=== PATIENT | male | born 1935 | race Caucasian/White ===

== ENCOUNTER 2016-08-24 11:54 | Day surgery (SDC) | payer MEDICARE ==
[~2016-08-24] VITALS: Ht 175.3 cm; Wt 87.1 kg
[2016-08-24] VITALS (7 sets, daily range): BP systolic 122–138; BP diastolic 74–92
[~2016-08-24 11:54] MED LIST: ALBU0.632 IH; AMLO10TA82 PO; AMLO5TAB2 PO; AMLO5TAB4 PO; ASP81TEC PO; BENA10TA2 PO; BNZ10T PO; BNZ20T PO; CALC-250 PO; CEFU500T PO; CHOL200035 PO; CIPR-225 PO; CLOP75TA PO; CLOP75TA28 PO; CPR250T PO; DOXY100C2 PO; HYDR-3583 PO; HYDR-508 PO; MAGN300C PO; METO-333 PO; METO25TA2 PO; METO50TA2 PO; NAPR1TAB25 PO; NAPR220C11 PO; NAPR250T34 PO; NEBU1EAC2 MC; NEO/3.5O OS; NFNEB10T PO; OMEG1CAP51 PO; OSTEO BI-FLEX1 EACH PO; PANT20TA2 PO; RANO500T3 PO; SIMV5TAB6 PO; TMSL.4C PO; TRAM50TA2 PO; TURM500C PO; TURM500C7 PO; [UNRECOGNIZED DRUG - CODE] PO; [UNRECOGNIZED DRUG - OTHER]
--- OUTSIDE RECORDS SUMMARY | 2016-08-24 11:58 | XMS REPORT | Continuity of Care Document ---
Author Author [facility] Organization [facility] Address Unknown Phone Unavailable Care Team Providers Care Spring Clipper Name Role Phone BEVERLEY YOUNGER MD PCP Insurance Providers Payer Name Policy Number Subscriber Name Relationship Wps Medicare [id number] Angela Main 18 Self / Same As Patient Blue Cross [facility] Supp [id number] Angela Main 18 Self / Same As Patient Advance Directives Directive Response Recorded Date/Time Advance Directives Yes 02/15/16 9:01am Health Care Power of Ship Engineer No 02/15/16 9:01am Organ Donor No 02/15/16 9:01am Resuscitation Status Full Code 02/15/16 9:01am Problems Active Problems Medical Problem Onset Date Status Chest pain Unknown Acute Gross hematuria Unknown Acute History of prostate cancer Unknown Acute UTI (urinary tract infection) Unknown Acute Unstable angina Unknown Acute Urinary retention Unknown Acute Medications Current Home Medications Medication Dose Units Route Directions Days/Qty Instructions Start Date Aspirin 81 Mg 81 Mg Oral Daily 02/01/12 Simvastatin 5 Mg 5 Mg Oral Bedtime 11/08/14 Amlodipine Besylate 5 Mg 5 Mg Oral Daily 10/04/15 Metoprolol Tartrate 50 Mg 50 Mg Oral Twice A Day 02/15/16 Ranolazine 500 Mg 500 Mg Oral Every 12 Hours 02/15/16 Naproxen Na-Diphenhydramin Hcl 1 Each 0.5 Tab Oral Bedtime 02/15/16 Cefuroxime Axetil 500 Mg 500 Mg Oral Twice A Day 10 02/15/16 Past Home Medications Medication Directions Ordered Status [Denazril 10MG] , 09/04/08 Discontinued Doxycycline Hyclate (Vibramycin) 100 Mg Capsule, 1 Each Oral Twice A Day 01/17 Discontinued Albuterol Sulfate (Proventil Nebs) 0.63 Mg/3 Ml Vial.neb, 1 Each Inhalation Q 4 - 6 Hrs Prn 12/15/09 Discontinued Naproxen 250 Mg Tablet, 1 Each Oral Three Times A Day 12/15/09 Discontinued Nebivolol Hcl 10 Mg Tablet, 1 Each Oral Daily 02/01/12 Discontinued Benazepril Hcl 20 Mg Tablet, 10 Mg Oral Daily 02/01/12 Discontinued Amlodipine Besylate (Norvasc 10 Mg) 10 Mg Tablet, 5 Mg Oral Daily 02/01/12 Discontinued Calcium Carbonate/Vitamin D3 1 Each Tablet, 1 Each Oral Daily 02/01/12 Discontinued Turmeric Root Extract 500 Mg Capsule, 500 Mg Oral Daily 02/01/12 Discontinued Gluc/[facility]#1/C/Juan M/Ryan/Bor 1 Each Tablet, 1 Tab Oral Bedtime 02/01/12 Discontinued Ciprofloxacin Hcl 250 Mg Tablet, 1 Tab Oral Twice A Day 02/05/12 Discontinued Acetaminophen/Hydrocodone Bitart 1 Tab Tab, 1 Ea Oral Q4hr Prn 02/05/12 Discontinued Tamsulosin Hcl 0.4 Mg Cap, 0.4 Mg Oral Daily 02/05/12 Discontinued Metoprolol Tartrate (Lopressor) 25 Mg Tablet, 25 Mg Oral Twice A Day Discontinued Naproxen Sodium 220 Mg Capsule, 220 Mg Oral Daily 12/30/12 Discontinued Cholecalciferol (Vitamin D3) 2,000 Unit Capsule, 2000 Unit Oral Daily Discontinued Magnesium Oxide/Mag Aa Chelate 300 Mg Capsule, 300 Mg Oral Daily 07/20/14 Discontinued Docosahexanoic Acid/Epa 1 Cap Capsule, 1 Cap Oral Daily 07/20/14 Discontinued Hydrocodone/Acetaminophen 1 Each Tablet, 1 Each Oral Every 4HRS for Pain Discontinued Benazepril Hcl 10 Mg Tab, 10 Mg Oral Daily 11/08/14 Discontinued Amlodipine Besylate 5 Mg Tab, 5 Mg Oral Daily 11/08/14 Discontinued Clopidogrel Bisulfate 75 Mg Tablet, 1 Each Oral Daily 11/08/14 Discontinued Pantoprazole Sodium 20 Mg Tablet.dr, 20 Mg Oral Daily 11/08/14 Discontinued Ciprofloxacin Hcl 500 Mg Tablet, 500 Mg Oral Twice A Day 03/29/15 Discontinued Turmeric Root Extract 500 Mg Capsule, 500 Mg Oral Daily 04/30/15 Discontinued Henry Seal 500 Mg Capsule, 500 Mg Oral Daily 04/30/15 Discontinued Metoprolol Tartrate 50 Mg Tablet, 50 Mg Oral Twice A Day 04/30/15 Discontinued Clopidogrel Bisulfate 75 Mg Tablet, 75 Mg Oral Daily 10/04/15 Discontinued Benazepril Hcl 10 Mg Tablet, 10 Mg Oral Daily 10/04/15 Discontinued Metoprolol Tartrate 25 Mg Tablet, 25 Mg Oral Twice A Day 10/04/15 Discontinued Ronald/Polymyx B Sulf/Dexameth 3.5 Gm Oint...g., Left Eye Bedtime 10/04/15 Discontinued Ranolazine 500 Mg Tab.er.12h, 500 Mg Oral Twice A Day 10/05/15 Discontinued Tramadol Hcl 50 Mg Tablet, 50 Mg Oral Every 12 Hours as needed for Pain 10/12 Discontinued Metoprolol Tartrate 50 Mg Tablet, 50 Mg Oral Twice A Day 02/15/16 Discontinued Social History Social History Problem Response Recorded Date/Time Alcohol Use Denies Use 10/13/2015 12:20pm Recreational Drug Use No 10/13/2015 12:20pm Recent Foreign Travel No 12/29/2012 6:05pm Recent Infectious Disease Exposure No 12/29/2012 6:05pm Hospitalization with Isolation Denies 12/30/2012 7:41pm Sexually Transmitted Disease No 10/13/2015 12:20pm HIV/AIDS No 10/13/2015 12:20pm Smoking Status Former Smoker 02/15/2016 9:01am Do you dip or chew tobacco? No 10/04/2015 3:15pm Sexually Transmitted Disease No 10/13/2015 12:20pm Hospitalization with Isolation Denies 12/30/2012 7:41pm Query Response Start Date Stop Date Smoking Status Former Smoker 04/30/1996 Hospital Discharge Instructions No hospital discharge instructions. Plan of Care Discharge Date 02/15/16 2:00pm Instructions/Education Provided Pacemaker (DC) Prescriptions See Medication Section Functional Status Query Response Date Recorded Patient Orientation Person Place Time Situation February 15, 2016 6:39pm Allergies, Adverse Reactions, Alerts No known allergies. Immunizations No immunization records. Vital Signs Acute Vital Signs Vital Response Date/Time Temperature (Fahrenheit) 97.4 degrees F (97.6 - 99.5) 02/15/2016 2:00pm Temperature (Calculated Celsius) 36.05070 degrees C (36.4 - 37.5) 02/15/2016 1:45pm Temperature Source Temporal 02/15/2016 2:00pm Pulse Rate (adult) 60 bpm (60 - 90) 02/15/2016 2:00pm Respiratory Rate 18 bpm (12 - 24) 02/15/2016 2:00pm O2 Sat by Pulse Oximetry 98 % (88 - 100) 02/15/2016 2:00pm Blood Pressure 130/78 mm Hg 02/15/2016 2:00pm Blood Pressure Mean 95 mm Hg 02/15/2016 1:45pm Pain Numeric Pain Scale 0-No Pain 02/15/2016 2:00pm Height (Feet) 5 feet 02/15/2016 9:00am Height (Inches) 10.00 inches 02/15/2016 9:00am Height (Calculated Centimeters) 177.789253 cm 02/15/2016 9:00am Weight (Pounds) 196 pounds 02/15/2016 9:00am Weight (Ounces) 0.0 oz 02/15/2016 9:00am Weight (Calculated Grams) 95085.11 gm 02/15/2016 9:00am Weight (Calculated Kilograms) 88.287633 kilograms 02/15/2016 9:00am Calculated BMI 28.1 02/15/2016 9:00am Results Laboratory Results Test Name Result Units Flags Reference Collection Date/Time Result Date/ Time Comments White Blood Count 6.5 10^3/uL 4.3-11.0 02/15/2016 8:50am 02/15/2016 9: 13am Red Blood Count 4.52 10^6/uL 4.35-5.85 02/15/2016 8:50am 02/15/2016 9: 13am Hemoglobin 13.5 G/DL 13.3-17.7 02/15/2016 8:50am 02/15/2016 9:13am Hematocrit 40 % 40-54 02/15/2016 8:50am 02/15/2016 9:13am Mean Corpuscular Volume 89 FL 80-99 02/15/2016 8:50am 02/15/2016 9: 13am Mean Corpuscular Hemoglobin 30 PG 25-34 02/15/2016 8:50am 02/15/2016 9: 13am Mean Corpuscular Hemoglobin Concent 34 G/DL 32-36 02/15/2016 8:50am 12/2015 9:13am Red Cell Distribution Width 14.1 % 10.0-14.5 02/15/2016 8:50am 2015 9:13am Platelet Count 201 10^3/uL 130-400 02/15/2016 8:50am 02/15/2016 9:13am Mean Platelet Volume 9.7 FL 7.4-10.4 02/15/2016 8:50am 02/15/2016 9: 13am Prothrombin Time 13.9 SEC 12.2-14.7 02/15/2016 8:50am 02/15/2016 9: 42am INR Comment 1.1 0.8-1.4 02/15/2016 8:50am 02/15/2016 9:42am INTERPRETIVE DATA SUGGESTED THERAPEUTIC RANGE FOR INR'S: VENOUS THROMBOSIS, PULMONARY EMBOLISM, OR PREVENTION OF SYSTEMIC EMBOLISM (EG. IN ATRIAL FIBRILLATION): 2.0 - 3.0 MECHANICAL PROSTHETIC HEART VALVES: 2.5 - 3.5* *NOTE: INR'S UP TO 4.5 MAY BE NECESSARY IN SELECTED GROUPS OF HIGH RISK PATIENTS. SIXTH CITIZEN OF [place] COLLEGE OF CHEST PHYSICIANS CONSENSUS CONFERENCE ON ANTITHROMBOTIC THERAPY (2000). Activated Partial Thromboplast Time 31 SEC 24-35 02/15/2016 8:50am 12/2015 9:42am Urine Color YELLOW 02/15/2016 8:50am 02/15/2016 9:43am Urine Clarity CLEAR 02/15/2016 8:50am 02/15/2016 9:43am Urine pH 6 5-9 02/15/2016 8:50am 02/15/2016 9:43am Urine Specific [place] 1.020 1.016-1.022 02/15/2016 8:50am 2015 9:43am Urine Protein 1+ * NEGATIVE 02/15/2016 8:50am 02/15/2016 9:43am Urine Glucose (UA) NEGATIVE NEGATIVE 02/15/2016 8:50am 02/15/2016 9: 43am Urine RBC (Auto) NEGATIVE NEGATIVE 02/15/2016 8:50am 02/15/2016 9: 43am Urine Ketones NEGATIVE NEGATIVE 02/15/2016 8:50am 02/15/2016 9:43am Urine Nitrite NEGATIVE NEGATIVE 02/15/2016 8:50am 02/15/2016 9:43am Urine Bilirubin NEGATIVE NEGATIVE 02/15/2016 8:50am 02/15/2016 9: 43am Urine Urobilinogen NORMAL MG/DL NORMAL 02/15/2016 8:50am 02/15/2016 9: 43am Urine Leukocyte Esterase 1+ * NEGATIVE 02/15/2016 8:50am 02/15/2016 9: 43am Urine RBC NONE /HPF 02/15/2016 8:50am 02/15/2016 9:43am Urine WBC 5-10 /HPF * 02/15/2016 8:50am 02/15/2016 9:43am Urine Bacteria TRACE /HPF 02/15/2016 8:50am 02/15/2016 9:43am Urine Squamous Epithelial Cells 0-2 /HPF 02/15/2016 8:50am 2015 9:43am Urine Crystals NONE /LPF 02/15/2016 8:50am 02/15/2016 9:43am Urine Casts NONE /LPF 02/15/2016 8:50am 02/15/2016 9:43am Urine Mucus SMALL /LPF * 02/15/2016 8:50am 02/15/2016 9:43am Urine Culture Indicated NO 02/15/2016 8:50am 02/15/2016 9:43am Sodium Level 138 MMOL/L 135-145 02/15/2016 8:50am 02/15/2016 9:31am Potassium Level 4.2 MMOL/L 3.6-5.0 02/15/2016 8:50am 02/15/2016 9:31am Chloride Level 106 MMOL/L 98-107 02/15/2016 8:50am 02/15/2016 9:31am Carbon Dioxide Level 23 MMOL/L 21-32 02/15/2016 8:50am 02/15/2016 9: 31am Anion Gap 9 MMOL/L 5-14 02/15/2016 8:50am 02/15/2016 9:31am Blood Urea Nitrogen 22 MG/DL H 7-18 02/15/2016 8:50am 02/15/2016 9:31am Creatinine 1.27 MG/DL 0.60-1.30 02/15/2016 8:50am 02/15/2016 9:31am BUN/Creatinine Ratio 17 02/15/2016 8:50am 02/15/2016 9:31am Estimat Glomerular Filtration Rate 55 02/15/2016 8:50am 02/15/2016 9:31am GFR INTERPRETIVE DATA UNITS FOR ESTIMATED GFR (eGFR): mL/min/1.73 M2 REFERENCE RANGE FOR ESTIMATED GFR (eGFR) eGFR NORMAL eGFR >60 MODERATELY DECREASED eGFR 30-59 SEVERLY DECREASED eGFR 15-29 KIDNEY FAILURE <15 (OR DIALYSIS) Glucose Level 98 MG/DL 70-105 02/15/2016 8:50am 02/15/2016 9:31am Calcium Level 8.7 MG/DL 8.5-10.1 02/15/2016 8:50am 02/15/2016 9:31am Total Bilirubin 0.8 MG/DL 0.1-1.0 02/15/2016 8:50am 02/15/2016 9:31am Alkaline Phosphatase 77 U/L 40-136 02/15/2016 8:50am 02/15/2016 9:31am Aspartate Amino Transf (AST/SGOT) 16 U/L 5-34 02/15/2016 8:50am 2015 9:31am Alanine Aminotransferase (ALT/SGPT) 15 U/L 0-55 02/15/2016 8:50am 02/14 9:31am Total Protein 7.3 G/DL 6.4-8.2 02/15/2016 8:50am 02/15/2016 9:31am Albumin 3.9 G/DL 3.2-4.5 02/15/2016 8:50am 02/15/2016 9:31am Triglycerides Level 188 MG/DL H <150 02/15/2016 8:50am 02/15/2016 9:31am Cholesterol Level 162 MG/DL < 200 02/15/2016 8:50am 02/15/2016 9:31am HDL Cholesterol 41 MG/DL 40-60 02/15/2016 8:50am 02/15/2016 9:31am LDL Cholesterol Direct 98 MG/DL 1-129 02/15/2016 8:50am 02/15/2016 9: 31am VLDL Cholesterol 38 MG/DL 5-40 02/15/2016 8:50am 02/15/2016 9:31am Procedures Procedure Status Date Provider(s) Tracing only of electrocardiogram Completed 02/15/16 NACHO FERRER MD Encounters Encounter Location Arrival/Admit Date Discharge/Depart Date Attending Provider Departed [facility] 02/15/16 8:13am 2:00pm NACHO FERRER MD
--- OUTSIDE RECORDS SUMMARY | 2016-08-24 11:58 | XMS REPORT | Continuity of Care Document ---
Author Author [facility] Organization [facility] Address Unknown Phone Unavailable Care Team Providers Care Music Writer Name Role Phone BEVERLEY YOUNGER MD PCP Insurance Providers Payer Name Policy Number Subscriber Name Relationship Wps Medicare [id number] Angela Main 18 Self / Same As Patient Blue Cross [facility] Supp [id number] Angela aMin 18 Self / Same As Patient Advance Directives Directive Response Recorded Date/Time Advance Directives Yes 02/15/16 9:01am Health Care Power of Application Internship No 02/15/16 9:01am Organ Donor No 02/15/16 [...] - 99.5) 02/15/2016 2:00pm Temperature (Calculated Celsius) 36.10590 degrees C (36.4 - 37.5) 02/15/2016 1:45pm [...] 10.00 inches 02/15/2016 9:00am Height (Calculated Centimeters) 177.963955 cm 02/15/2016 9:00am Weight (Pounds) 196 pounds 02/15/2016 9:00am Weight (Ounces) 0.0 oz 02/15/2016 9:00am Weight (Calculated Grams) 73645.11 gm 02/15/2016 9:00am Weight (Calculated Kilograms) 88.524424 kilograms 02/15/2016 9:00am Calculated BMI 28.1 02/15/2016 [...] SELECTED GROUPS OF HIGH RISK PATIENTS. SIXTH [place] COLLEGE OF CHEST PHYSICIANS CONSENSUS CONFERENCE ON ANTITHROMBOTIC THERAPY (2000). Activated Partial Thromboplast Time 31 SEC 24-35 02/15/2016 8:50am 12/2015 9:42am Urine Color YELLOW 02/15/2016 8:50am 02/15/2016 9:43am Urine Clarity CLEAR 02/15/2016 8:50am 02/15/2016 9:43am Urine pH 6 5-9 02/15/2016 8:50am 02/15/2016 9:43am Urine Specific [place] 1.020 1.016-1.022 02/15/2016 8:50am 2015 9:43am Urine [...] Attending Provider Departed [facility] 02/15/16 8:13am 2:00pm NACHO FERRER MD
[2016-08-24] MEDS ORDERED: NS IV 1000 ML 1,000 ML ONE (12:11)
[2016-08-24] MEDS ORDERED: LIDOCAINE 1% INJ 20 ML (XYLOCAINE) VIAL ONE (12:11)
[2016-08-24] MEDS ORDERED: HEParin (CATH LAB) 2,000 ML IV ONE (12:11)
[2016-08-24 12:45] LABS: MEAN PLATELET VOLUME 9.5 FL (7.4-10.4); RED BLOOD COUNT 4.76 10^6/uL (4.35-5.85); RED CELL DISTRIBUTION WIDTH 13.9 % (10.0-14.5); WHITE BLOOD COUNT 6.3 10^3/uL (4.3-11.0)
[2016-08-24 12:47] LABS: BILIRUBIN,URINE NEGATIVE (NEGATIVE); KETONES,URINE NEGATIVE (NEGATIVE); LEUKOCYTE ESTERASE ,URINE NEGATIVE (NEGATIVE); NITRITE,URINE NEGATIVE (NEGATIVE); PH,URINE 5 (5-9); PROTEIN,URINE NEGATIVE (NEGATIVE); UROBILINOGEN,URINE NORMAL (NORMAL)
--- NOTE | 2016-08-24 12:48 | Diagnostic Imaging Report ---
Portable upright radiograph of the chest. INDICATION: Chest pain. FINDINGS: The lungs are hyperinflated with mild interstitial scarring. There is borderline cardiomegaly. No focal consolidation developed from prior exam of 02/15/16. Pacemaker, sternotomy wires and post CABG changes are again noted. No effusion or pneumothorax. IMPRESSION: Hyperinflated lungs. Borderline cardiac size. Dictated by: Dictated on workstation # [id number]
[2016-08-24 12:54] LABS: INR 1.1 (0.8-1.4); PROTHROMBIN TIME PATIENT 13.4 SEC (12.2-14.7)
[2016-08-24 12:56] LABS: SQUAMOUS EPITHELIAL CELL,UR 0-2 /HPF; WBC,URINE 0-2 /HPF
[2016-08-24 13:06] LABS: ALBUMIN 4.1 G/DL (3.2-4.5); BILIRUBIN,TOTAL 1.4 MG/DL (0.1-1.0); CREATININE SERUM 1.2 MG/DL (0.60-1.30); TOTAL PROTEIN 6.9 G/DL (6.4-8.2)
[2016-08-24] MEDS ORDERED: NAPR220T66 PO (13:12)
[2016-08-24] MEDS ORDERED: UBID200C17 PO (13:12)
[2016-08-24] MEDS ORDERED: NS IV 1000 ML 1,000 ML IV SCH ×2 (13:30→14:26)
[2016-08-24] MEDS ORDERED: MIDAZOLAM 5 MG/5 ML (VERSED) VIAL ONE (13:32)
[2016-08-24] MEDS ORDERED: fentaNYL INJECTION 100 MCG/2 ML AMP ONE (13:32)
--- NOTE | 2016-08-24 13:42 | Cardiac Procedure Note-CS/ASA ---
Pre-Procedure Note Pre-Op Procedure Note H&P Reviewed The H&P was reviewed, patient examined and no changes noted. Date H&P Reviewed: Aug 24, 2016 Time H&P Reviewed: 13:42 Conscious Sedation Pre-Proced Time Reviewed: 13:42 ASA Class: 3 Airway Mallampati Classification: ([place] appropriate class) I. II. III, IV Lungs Heart ASA score ASA 1: a normal healthy patient ASA 2: a patient with a mild systemic disease (mid diabetes, controlled hypertension, obesity x ASA 3: a patient with a severe systemic disease that limits activity (angina , COPD, prior Myocardial infarction) ASA 4: a patient with an incapacitating disease that is a constant threat to life (CHF, renal failure) ASA 5: a moribund patient not expected to survive 24 hrs. (ruptured aneurysm) ASA 6: a declared brain patient whose organs are being harvested. For emergent operations, add the letter E after the classification Grade 3 Sedation Plan: Analgesia, Amnesia, Plan communicated to team members, Discussed options with patient/fam, Discussed risks with patient/fam Note The patient is an appropriate candidate to undergo the planned procedure, sedation, and anesthesia. The patient immediately re-assessed prior to indication. NACHO FERRER MD Aug 24, 2016 13:42
[2016-08-24] MEDS ORDERED: RANO500T3 PO (14:28)
[2016-08-24] MEDS ORDERED: ROSU10TA PO (14:28)
[2016-08-24] MEDS ORDERED: PATIENT MAY USE OWN MEDS, ALL PO SCH (14:30)
--- NOTE | 2016-08-24 14:30 | Discharge Inst-Post CATH ---
Discharge Inst-CATH Post Cardiac Cath D/C Inst Follow Up/Plan Appointment with Dr Hampton's office in 2-4 weeks CARDIAC CATH DISCHARGE INSTRUCTIONS *Hold Metformin for 48 hours post heart cath. ACTIVITY * Go Home directly and rest. * Limit activity of the leg (or wrist if it was used) for 7 days including aerobics, swimming, jogging, bicycling, etc. * Restrict stair-climbing for 7 days if possible, if not, climb up with your non -cath leg, then bring together on the same step. * Avoid lifting, pushing, pulling or excessive movement of the affected extremity for 7 days. * Customary sexual activity may be resumed after 2 days-use caution not to use a position that strains or causes pain to the affected extremity. * No driving for 24 hours. * NO SMOKING. * Avoid straining for bowel movements for 7 days. * Gentle walking on level ground is allowed. * Returning to work will depend on the type of procedure and the results. Your doctor will discuss this with you. CALL YOUR DOCTOR FOR ANY OF THE FOLLOWING: *If bleeding from the puncture site occurs- Apply gentle pressure to site with clean cloth and call your doctor or EMS. * If a knot or lump forms under the skin, increases in size, or causes pain. * If bruising appears to be worsening or moving further down your leg instead of disappearing. * Temperature above 101 F. CARE OF YOUR GROIN INCISION; * Bruising or purple discoloration of the skin near the puncture site is common. * You may shower only, no bathtub bathing for 5 days. Be careful to avoid slipping as your leg may feel stiff. * If a closure device was used on your femoral artery, please see the attached guide regarding care of the device and your leg. * REMOVE the dressing from your groin the next day after your procedure in the shower. CARE OF YOUR WRIST INCISION; * Bruising or purple discoloration of the skin near the puncture site is common. * You may shower. * DO NOT submerge wrist. * Remove dressing in 24 hours. NACHO HAMPTON MD Aug 24, 2016 14:30
--- NOTE | 2016-08-25 23:20 | DISCHARGE SUMMARY ---
REFERRING PHYSICIAN: Dr. Dumont. BRIEF HISTORY: Mr. Haile is a 81-year-old gentleman with history of coronary artery disease, CABG, 2 stents in the past. He has been having increasing episodes of chest pain. He was scheduled for left heart catheterization, possible PTCA. PROCEDURE NOTE: After explaining the procedure to the patient, all pros and cons were explained. All questions were answered. The patient signed consent, then he was placed on the cardiac catheterization laboratory. The right groin was prepped in a sterile fashion. Local anesthesia applied to right groin. 6-[place] sheath was placed in the right femoral artery. Combination of right and left Sandra catheters were used access the right and left coronary system. Sandra right catheter was used to access the vein graft and internal mammary artery, then a pigtail catheter was advanced to the left ventricular cavity. Pressure was measured. Pullback LV to aorta was done. Left ventriculogram was done. At the end of the procedure, sheath was removed. Mynx device deployed. Hemostasis achieved. No complication noted. FINDINGS: HEMODYNAMICS: LV pressure 114/8, end-diastolic pressure of 8, aortic pressure 118/57, mean of 82. ANATOMY: 1. Left main coronary artery has moderate disease. 2. Left anterior descending artery is occluded. The LIM to the LAD is patent with good flow distally. 3. Left circumflex artery is occluded. A jump graft, vein graft to the first and second obtuse marginal branch is patent with good flow distally. 4. Right coronary artery has 2 stents. The proximal stent has 50% stenosis. Distal has mild disease, small vessel disease distally. 5. Vein graft angiogram: The vein graft, jump graft to the first and second obtuse marginal branch has 50 to 60% stenosis at the midportion with small vessel disease in the distal circumflex system. 6. Doppler vein graft is the vein graft to the right coronary artery that is occluded. 7. LIM to the LAD is patent with good flow distally. DISCUSSION AND RECOMMENDATION: Mr. Haile has borderline lesion in the stent in the right coronary artery and in the vein graft to the first and second obtuse marginal branch. He has intolerance to oral anticoagulation. I recommend conservative management unless he becomes significantly symptomatic. FINAL DIAGNOSES: 1. Chest pain resembling angina. 2. Coronary artery disease. 3. Hypertension. 4. Hyperlipidemia. Job ID: [id number] Dictated Date: 08/24/2016 14:34:40 Electronic Repair Troubleshooter Date: 08/25/2016 23:18:41/tbk
== END 2016-08-24 18:50 | disposition home or self-care (01) ==
LOC: CATH 11:54 → ICU 14:45 → CATH 18:50
PROVIDERS: ATTEND Internal Medicine Cardiovascular Disease
DX: R07.89 Other chest pain (principal); I25.10 Atherosclerotic heart disease of native coronary artery without angina pectoris; I25.82 Chronic total occlusion of coronary artery; T82.855A Stenosis of coronary artery stent, initial encounter; T82.857A Stenosis of other cardiac prosthetic devices, implants and grafts, initial encounter; I10 Essential (primary) hypertension; E78.5 Hyperlipidemia, unspecified; I49.5 Sick sinus syndrome; Z79.899 Other long term (current) drug therapy; Z95.0 Presence of cardiac pacemaker
CPT/HCPCS: 36415; 71010; 80053; 80061; 81000; 85027; 85610; 85730; 87081; 93459

== ENCOUNTER → 2017-11-28 | Outpatient (CLI) | payer MEDICARE ==
[~2017-11-28] MED LIST changes: +METO50TA15 PO; -METO50TA2 PO; +NAPR220T66 PO; +ROSU10TA PO; +UBID200C36 PO
== END ==
LOC: CARD 09:20
PROVIDERS: ATTEND Internal Medicine Cardiovascular Disease
DX: I25.10 Atherosclerotic heart disease of native coronary artery without angina pectoris (principal); I10 Essential (primary) hypertension; E78.5 Hyperlipidemia, unspecified; I49.5 Sick sinus syndrome; I07.1 Rheumatic tricuspid insufficiency
CPT/HCPCS: 93306

== ENCOUNTER 2018-05-18 15:51 | Inpatient (IN) | payer MEDICARE ==
[~2018-05-18] VITALS: Ht 175.3 cm; Wt 84.4 kg
[2018-05-18] VITALS (13 sets, daily range): BP systolic 128–182; BP diastolic 55–116
[~2018-05-18 15:51] MED LIST changes: +ALTEPLASE 100 MG/VIAL (ACTIVASE) IV NR; -BENA10TA2 PO; +BENA10TA7 PO
--- OUTSIDE RECORDS SUMMARY | 2018-05-18 16:00 | XMS REPORT | Continuity of Care Document ---
Author Author [facility] Organization [facility] Address Unknown Phone Unavailable Allergies Active Description Code Type Severity Reaction Onset Reported/Identified Relationship to Patient Clinical Status Yes No Known Drug Allergies [id number] Drug Allergy Unknown N/A 10/11/2015 Medications There is no data. Problems Date Dx Coded Attending Type Code Diagnosis Diagnosed By 12/15/2009 Ot 511.0 12/15/2009 Ot 959.11 12/15/2009 Ot E000.8 12/15/2009 Ot E029.9 12/15/2009 Ot E849.0 12/15/2009 Ot E888.1 02/19/2011 Ot 272.4 02/19/2011 Ot 401.9 02/19/2011 Ot 412 02/19/2011 Ot 414.01 02/19/2011 Ot 427.89 02/19/2011 Ot 780.2 02/19/2011 Ot 791.9 02/19/2011 Ot V45.01 02/19/2011 Ot V45.82 02/19/2011 Ot V58.69 02/05/2012 Ot 185 MALIGN NEOPL PROSTATE 03/24/2012 Ot 185 MALIGN NEOPL PROSTATE 12/30/2012 PIERRE VAZQUEZ MD Ot 272.4 HYPERLIPIDEMIA NEC/NOS 12/30/2012 PIERRE VAZQUEZ MD Ot 401.9 HYPERTENSION NOS 12/30/2012 PIERRE VAZQUEZ MD Ot 412 OLD MYOCARDIAL INFARCT 12/30/2012 PIERRE VAZQUEZ MD Ot 414.01 CORONARY ATHEROSCLEROSIS OF [place] CORON 12/30/2012 PIERRE VAZQUEZ MD Ot 433.10 CAROTID ARTERY OCCLUSION W O CEREBRAL IN 12/30/2012 PIERRE VAZQUEZ MD Ot 433.30 MULT BILTRAL ARTERY OCCLUSION WO CEREBRA 12/30/2012 PIERRE VAZQUEZ MD Ot 780.4 DIZZINESS AND GIDDINESS 12/30/2012 PIERRE VAZQUEZ MD Ot V45.01 CARDIAC PACEMAKER IN SITU 12/30/2012 REBEKAH VAZQUEZ MDHLEEN M Ot V45.81 AORTOCORONARY BYPASS 07/16/2014 Ot 397.0 07/16/2014 Ot 414.00 07/16/2014 Ot 424.0 07/16/2014 Ot 786.50 07/16/2014 Ot 793.2 07/16/2014 Ot V45.01 07/16/2014 Ot 185 07/16/2014 Ot 185 07/16/2014 Ot V81.5 07/16/2014 Ot 185 07/16/2014 Ot V72.63 07/16/2014 Ot V72.81 07/16/2014 Ot V74.8 07/16/2014 Ot 185 07/16/2014 ASHOK ZUNIGA, DEENA Ku Ot 211.3 07/16/2014 ASHOK ZUNIGA, DEENA Ku Ot 562.10 07/16/2014 ASHOK ZUNIGA, DEENA Ku Ot V76.51 07/16/2014 ASHOK ZUNIGA, DEENA Ku Ot V72.84 07/16/2014 CARISSA ZUNIGA, NACHO Keane Ot 272.4 07/16/2014 CARISSA ZUNIGA, NACHO Keane Ot 401.9 07/16/2014 CARISSA ZUNIGA, NACHO Keane Ot 414.00 07/16/2014 CARISSA ZUNIGA, NACHO Keane Ot 427.81 07/16/2014 CARISSA ZUNIGA, NACHO Keane Ot 433.10 07/16/2014 GEORGE ZUNIGA, PIERRE Larios Ot 592.0 07/16/2014 GEORGE ZUNIGA, PIERRE Larios Ot 599.70 07/16/2014 GEORGE ZUNIGA, PIERRE Larios Ot 562.10 07/16/2014 GEORGE ZUNIGA, PIERRE Larios Ot 593.2 07/16/2014 PIERRE VAZQUEZ MD Ot 599.70 07/16/2014 GEORGE ZUNIGA, PIERRE Larios Ot 788.1 07/16/2014 GEORGE ZUNIGA, PIERRE Larios Ot 789.00 07/23/2014 ANA DO, LADAN F Ot 715.36 07/23/2014 ANA DO, LADAN F Ot V72.83 07/23/2014 ANA DO LADAN F Ot V74.8 07/27/2014 ANA DO, LADAN F Ot 717.6 LOOSE BODY IN KNEE 07/27/2014 ANA DO, LADAN F Ot 717.7 CHONDROMALACIA PATELLAE 07/27/2014 LADAN PEREZ DO Ot 836.0 TEAR MED MENISC KNEE-CUR 07/27/2014 LADAN PEREZ DO Ot E000.8 OTHER EXTERNAL CAUSE STATUS 07/27/2014 LADAN PEREZ DO Ot E928.9 ACCIDENT NOS 11/08/2014 NACHO FERRER MD Ot 272.4 HYPERLIPIDEMIA NEC/NOS 11/08/2014 NACHO FERRER MD Ot 401.9 HYPERTENSION NOS 11/08/2014 NACHO FERRER MD Ot 411.1 INTERMED CORONARY SYND 11/08/2014 NACHO FERRER MD Ot 414.01 CORONARY ATHEROSCLEROSIS OF [place] CORON 11/08/2014 NACHO FERRER MD Ot 414.02 CORON ATHEROSCLEROSIS AUTOLOG VEIN BYPAS 11/08/2014 NACHO FERRER MD Ot 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 11/08/2014 NACHO FERRER MD Ot 427.81 SINOATRIAL NODE DYSFUNCT 11/08/2014 NACHO FERRER MD, Ot V45.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 PACEMAKER IN SITU 11/08/2014 NACHO FERRER MD Ot V45.81 AORTOCORONARY BYPASS 03/29/2015 DODIE COLETTE Ot R31.0 GROSS HEMATURIA 03/29/2015 DODIE COLETTE Vance Ot R33.9 RETENTION OF URINE, UNSPECIFIED 03/29/2015 DODIE SANDEEA Rajiv Ot Z79.82 TAX ASSOCIATE (CURRENT) USE OF ASPIRIN 03/29/2015 COLETTE STOLL DO Ot Z79.899 OTHER TAX ASSOCIATE (CURRENT) DRUG THERAPY 03/29/2015 COLETTE STOLL DO Ot Z85.46 PERSONAL HISTORY OF MALIGNANT NEOPLASM O 04/30/2015 Ot 397.0 04/30/2015 Ot 414.00 04/30/2015 Ot 424.0 04/30/2015 Ot 786.50 04/30/2015 Ot 793.2 04/30/2015 Ot V45.01 04/30/2015 Ot 185 04/30/2015 Ot 185 04/30/2015 Ot V81.5 04/30/2015 Ot 185 04/30/2015 Ot V72.63 04/30/2015 Ot V72.81 04/30/2015 Ot V74.8 04/30/2015 Ot 185 04/30/2015 ASHOK ZUNIGA, DEENA Ku Ot 211.3 04/30/2015 ASHOK ZUNIGA, DEENA Ku Ot 562.10 04/30/2015 DEENA PULIDO MD Ot V76.51 04/30/2015 DEENA PULIDO MD Ot V72.84 04/30/2015 NACHO FERRER MD Ot 272.4 04/30/2015 NACHO FERRER MD Ot 401.9 04/30/2015 NACHO FERRER MD Ot 414.00 04/30/2015 NACHO FERRER MD Ot 427.81 04/30/2015 NACHO FERRER MD Ot 433.10 04/30/2015 GEORGE ZUNIGA, PIERRE Larios Ot 592.0 04/30/2015 PIERRE VZAQUEZ MD Ot 599.70 04/30/2015 PIERRE VAZQUEZ MD Ot 562.10 04/30/2015 PIERRE VAZQUEZ MD Ot 593.2 04/30/2015 PIERRE VAZQUEZ MD Ot 599.70 04/30/2015 PIERRE VAZQUEZ MD Ot 788.1 04/30/2015 PIERRE VAZQUEZ MD Ot 789.00 04/30/2015 ANA DO, LADAN F Ot 715.36 04/30/2015 ANA DO, LADAN F Ot V72.83 04/30/2015 ANA , LADAN F Ot V74.8 04/30/2015 NACHO FERRER MD Ot E78.5 HYPERLIPIDEMIA, UNSPECIFIED 04/30/2015 NACHO FERRER MD Ot I10 ESSENTIAL (PRIMARY) HYPERTENSION 04/30/2015 NACHO FERRER MD Ot I25.119 ATHSCL HEART DISEASE OF [place] COR ART W 04/30/2015 NACHO FERRER MD Ot I49.1 ATRIAL PREMATURE DEPOLARIZATION 04/30/2015 NACHO FERRER MD Ot I49.5 SICK SINUS SYNDROME 04/30/2015 NACHO FERRER MD Ot Z87.891 PERSONAL HISTORY OF NICOTINE DEPENDENCE 04/30/2015 NACHO FERRER MD Ot Z95.0 PRESENCE OF CARDIAC PACEMAKER 04/30/2015 NACHO FERRER MD Ot E78.5 04/30/2015 NACHO FERRER MD Ot I10 04/30/2015 NACHO FERRER MD Ot I25.119 04/30/2015 CARISSA ZUNIGA, NACHO Keane Ot I49.1 04/30/2015 NACHO FERRER MD Ot I49.5 04/30/2015 CARISSA ZUNIGA, NACHO Keane Ot Z87.891 04/30/2015 NACHO FERRER MD Ot Z95.0 05/26/2015 NACHO FERRER MD Ot R07.9 06/01/2015 NACHO FERRER MD Ot R07.9 10/05/2015 BEVERLEY YOUNGER MD Ot E78.5 HYPERLIPIDEMIA, UNSPECIFIED 10/05/2015 BEVERLEY YOUNGER MD Ot I10 ESSENTIAL (PRIMARY) HYPERTENSION 10/05/2015 BEVERLEY YOUNGER MD Ot I25.750 ATHSCL [place] COR ART OF TXPLT HEART W U 10/05/2015 BEVERLEY YOUNGER MD, Ot I49.3 VENTRICULAR PREMATURE DEPOLARIZATION 10/05/2015 BEVERLEY YOUNGER MD, Ot I49.5 SICK SINUS SYNDROME 10/05/2015 BEVERLEY YOUNGER MD, Ot I65.23 OCCLUSION AND STENOSIS OF BILATERAL [place] 10/05/2015 BEVERLEY YOUNGER MD Ot J45.909 UNSPECIFIED ASTHMA, UNCOMPLICATED 10/05/2015 BEVERLEY YOUNGER MD Ot N40.0 ENLARGED PROSTATE WITHOUT LOWER URINARY 10/05/2015 BEVERLEY YOUNGER MD Ot Z95.0 PRESENCE OF CARDIAC PACEMAKER 10/05/2015 BEVERLEY YOUNGER MD Ot Z95.1 PRESENCE OF AORTOCORONARY BYPASS GRAFT 10/05/2015 BEVERLEY YOUNGER MD Ot Z95.5 PRESENCE OF CORONARY ANGIOPLASTY IMPLANT 10/05/2015 BEVERLEY YOUNGER MD, Ot E78.5 HYPERLIPIDEMIA, UNSPECIFIED 10/05/2015 BEVERLEY YOUNGER MD Ot I10 ESSENTIAL (PRIMARY) HYPERTENSION 10/05/2015 BEVERLEY YOUNGER MD Ot I25.750 ATHSCL [place] COR ART OF TXPLT HEART W U 10/05/2015 BEVERLEY YOUNGER MD Ot I49.3 VENTRICULAR PREMATURE DEPOLARIZATION 10/05/2015 BEVERLEY YOUNGER MD, Ot I49.5 SICK SINUS SYNDROME 10/05/2015 BEVERLEY YOUNGER MD Ot I65.23 OCCLUSION AND STENOSIS OF BILATERAL [place] 10/05/2015 BEVERLEY YOUNGER MD Ot J45.909 UNSPECIFIED ASTHMA, UNCOMPLICATED 10/05/2015 BEVERLEY YOUNGER MD Ot N40.0 ENLARGED PROSTATE WITHOUT LOWER URINARY 10/05/2015 BEVERLEY YOUNGER MD Ot Z95.0 PRESENCE OF CARDIAC PACEMAKER 10/05/2015 BEVERLEY YOUNGER MD Ot Z95.1 PRESENCE OF AORTOCORONARY BYPASS GRAFT 10/05/2015 BEVERLEY YOUNGER MD Ot Z95.5 PRESENCE OF CORONARY ANGIOPLASTY IMPLANT 10/11/2015 Ot 185 MALIGN NEOPL PROSTATE 10/11/2015 MAMTA MOHAN MD, Ot L98.9 DISORDER OF THE SKIN AND SUBCUTANEOUS TI 10/11/2015 MAMTA MOHAN MD Ot Z01.818 ENCOUNTER FOR OTHER PREPROCEDURAL EXAMIN 10/11/2015 MAMTA MOHAN MD, Ot L98.9 DISORDER OF THE SKIN AND SUBCUTANEOUS TI 10/11/2015 MAMTA MOHAN MD Ot Z01.818 ENCOUNTER FOR OTHER PREPROCEDURAL EXAMIN 10/13/2015 MAMTA MOHAN MD Ot C44.310 BASAL CELL CARCINOMA OF SKIN OF UNSPECIF 10/14/2015 MAMTA MOHAN MD Ot C44.310 BASAL CELL CARCINOMA OF SKIN OF UNSPECIF 02/15/2016 NACHO FERRER MD Ot E78.5 HYPERLIPIDEMIA, UNSPECIFIED 02/15/2016 NACHO FERRER MD, Ot I10 ESSENTIAL (PRIMARY) HYPERTENSION 02/15/2016 NACHO FERRER MD Ot I25.10 ATHSCL HEART DISEASE OF [place] CORONARY 02/15/2016 NACHO FERRER MD Ot I48.0 PAROXYSMAL ATRIAL FIBRILLATION 02/15/2016 NACHO FERRER MD, Ot I49.5 SICK SINUS SYNDROME 02/15/2016 NACHO FERRER MD, Ot Z45.010 ENCNTR FOR CHECKING AND TEST OF CARD PAC 02/15/2016 NACHO FERRER MD, Ot Z79.899 OTHER TAX ASSOCIATE (CURRENT) DRUG THERAPY 03/12/2016 NACHO FERRER MD, Ot E78.5 HYPERLIPIDEMIA, UNSPECIFIED 03/12/2016 NACHO FERRER MD Ot I10 ESSENTIAL (PRIMARY) HYPERTENSION 03/12/2016 NACHO FERRER MD, Ot I25.10 ATHSCL HEART DISEASE OF [place] CORONARY 03/12/2016 NACHO FERRER MD Ot I48.0 PAROXYSMAL ATRIAL FIBRILLATION 03/12/2016 NACHO FERRER MD Ot I49.5 SICK SINUS SYNDROME 03/12/2016 NACHO FERRER MD Ot Z45.010 ENCNTR FOR CHECKING AND TEST OF CARD PAC 03/12/2016 NACHO FERRER MD Ot Z79.899 OTHER TAX ASSOCIATE (CURRENT) DRUG THERAPY 03/14/2016 NACHO FERRER MD Ot E78.5 HYPERLIPIDEMIA, UNSPECIFIED 03/14/2016 NACHO FERRER MD Ot I10 ESSENTIAL (PRIMARY) HYPERTENSION 03/14/2016 NACHO FERRER MD Ot I25.10 ATHSCL HEART DISEASE OF [place] CORONARY 03/14/2016 NACHO FERRER MD Ot I48.0 PAROXYSMAL ATRIAL FIBRILLATION 03/14/2016 NACHO FERRER MD Ot I49.5 SICK SINUS SYNDROME 03/14/2016 NACHO FERRER MD Ot Z45.010 ENCNTR FOR CHECKING AND TEST OF CARD PAC 03/14/2016 NACHO FERRER MD Ot Z79.899 OTHER SENIOR CARE (CURRENT) DRUG THERAPY 08/24/2016 Ot 185 MALIGN NEOPL PROSTATE 08/24/2016 Ot 185 MALIGN NEOPL PROSTATE 08/24/2016 Ot V81.5 SCREEN FOR NEPHROPATHY 08/24/2016 Ot 185 MALIGN NEOPL PROSTATE 08/24/2016 Ot V72.63 PRE- PROCEDURAL LABORATORY EXAMINATION 08/24/2016 Ot V72.81 EXAM-PRE- OPERATIVE CARDIOVASCULAR 08/24/2016 Ot V74.8 SCREEN- BACTERIAL DIS NEC 08/24/2016 Ot 185 MALIGN NEOPL PROSTATE 08/24/2016 DEENA PULIDO MD Ot 211.3 BENIGN NEOPLASM LG BOWEL 08/24/2016 DEENA PULIDO MD Ot 562.10 DIVERTICULOSIS COLON (W/O MENT OF HEMORR 08/24/2016 DEENA PULIDO MD Ot V76.51 SCREEN MAL NEOP-COLON 08/24/2016 DEENA PULIDO MD Ot V72.84 EXAM PRE-OPERATIVE NOS 08/24/2016 NACHO FERRER MD Ot 272.4 HYPERLIPIDEMIA NEC/NOS 08/24/2016 NACHO FERRER MD Ot 401.9 HYPERTENSION NOS 08/24/2016 NACHO FERRER MD Ot 414.00 CORON ATHEROSCLER NOS TYPE VESSEL, NATIV 08/24/2016 NACHO FERRER MD Ot 427.81 SINOATRIAL NODE DYSFUNCT 08/24/2016 NACHO FERRER MD Ot 433.10 CAROTID ARTERY OCCLUSION W O CEREBRAL IN 08/24/2016 PIERRE VAZQUEZ MD Ot 592.0 CALCULUS OF KIDNEY 08/24/2016 PIERRE VAZQUEZ MD Ot 599.70 HEMATURIA, UNSPECIFIED 08/24/2016 PIERRE VAZQUEZ MD Ot 562.10 DIVERTICULOSIS COLON (W/O MENT OF HEMORR 08/24/2016 PIERRE VAZQUEZ MD Ot 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, ACQUIRED 08/24/2016 PIERRE VAZQUEZ MD Ot 599.70 HEMATURIA, UNSPECIFIED 08/24/2016 PIERRE VAZQUEZ MD Ot 788.1 DYSURIA 08/24/2016 PIERRE VAZQUEZ MD Ot 789.00 ABDOMINAL PAIN, UNSPECIFIED SITE 08/24/2016 LADAN PEREZ DO Ot 715.36 LOC OSTEOARTH NOS-L/LEG 08/24/2016 LADAN PEREZ DO Ot V72.83 EXAM PRE-OPERATIVE NEC 08/24/2016 LADAN PEREZ DO Ot V74.8 SCREEN-BACTERIAL DIS NEC 08/24/2016 NACHO FERRER MD Ot R07.9 CHEST PAIN, UNSPECIFIED 08/24/2016 NACHO FERRER MD, Ot E78.5 HYPERLIPIDEMIA, UNSPECIFIED 08/24/2016 NACHO FERRER MD Ot I10 ESSENTIAL (PRIMARY) HYPERTENSION 08/24/2016 NACHO FERRER MD, Ot I25.10 ATHSCL HEART DISEASE OF [place] CORONARY 08/24/2016 NACHO FERRER MD, Ot 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 08/24/2016 NACHO FERRER MD, Ot I49.5 SICK SINUS SYNDROME 08/24/2016 NACHO FERRER MD Ot R07.89 OTHER CHEST PAIN 08/24/2016 NACHO FERRER MD, Ot T82.855A STENOSIS OF CORONARY ARTERY STENT, INITI 08/24/2016 NACHO FERRER MD, Ot T82.857A STENOSIS OF OTHER CARDIAC PROSTH DEV/GRF 08/24/2016 NACHO FERRER MD, Ot Z79.899 OTHER SENIOR CARE (CURRENT) DRUG THERAPY 08/24/2016 NACHO FERRER MD Ot Z95.0 PRESENCE OF CARDIAC PACEMAKER 09/03/2016 NACHO FERRER MD Ot E78.5 HYPERLIPIDEMIA, UNSPECIFIED 09/03/2016 NACHO FERRER MD Ot I10 ESSENTIAL (PRIMARY) HYPERTENSION 09/03/2016 NACHO FERRER MD Ot I25.10 ATHSCL HEART DISEASE OF [place] CORONARY 09/03/2016 NACHO FERRER MD Ot 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 09/03/2016 NACHO FERRER MD Ot I49.5 SICK SINUS SYNDROME 09/03/2016 NACHO FERRER MD Ot R07.89 OTHER CHEST PAIN 09/03/2016 NACHO FERRER MD Ot T82.855A STENOSIS OF CORONARY ARTERY STENT, INITI 09/03/2016 NACHO FERRER MD Ot T82.857A STENOSIS OF OTHER CARDIAC PROSTH DEV/GRF 09/03/2016 NACHO FERRER MD Ot Z79.899 OTHER TAX ASSOCIATE (CURRENT) DRUG THERAPY 09/03/2016 NACHO FERRER MD Ot Z95.0 PRESENCE OF CARDIAC PACEMAKER 09/13/2016 NACHO FERRER MD Ot E78.5 HYPERLIPIDEMIA, UNSPECIFIED 09/13/2016 NACHO FERRER MD Ot I10 ESSENTIAL (PRIMARY) HYPERTENSION 09/13/2016 NACHO FERRER MD Ot I25.10 ATHSCL HEART DISEASE OF [place] CORONARY 09/13/2016 NACHO FERRER MD Ot 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 09/13/2016 NACHO FERRER MD Ot I49.5 SICK SINUS SYNDROME 09/13/2016 NACHO FERRER MD Ot R07.89 OTHER CHEST PAIN 09/13/2016 NACHO FERRER MD Ot T82.855A STENOSIS OF CORONARY ARTERY STENT, INITI 09/13/2016 NACHO FERRER MD Ot T82.857A STENOSIS OF OTHER CARDIAC PROSTH DEV/GRF 09/13/2016 NACHO FERRER MD Ot Z79.899 OTHER SENIOR CARE (CURRENT) DRUG THERAPY 09/13/2016 NACHO FERRER MD Ot Z95.0 PRESENCE OF CARDIAC PACEMAKER 09/23/2016 NACHO FERRER MD Ot E78.5 HYPERLIPIDEMIA, UNSPECIFIED 09/23/2016 NACHO FERRER MD Ot I10 ESSENTIAL (PRIMARY) HYPERTENSION 09/23/2016 NACHO FERRER MD Ot I25.10 ATHSCL HEART DISEASE OF [place] CORONARY 09/23/2016 NACHO FERRER MD Ot 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 09/23/2016 NACHO FERRER MD Ot I49.5 SICK SINUS SYNDROME 09/23/2016 NACHO FERRER MD Ot R07.89 OTHER CHEST PAIN 09/23/2016 NACHO FERRER MD Ot T82.855A STENOSIS OF CORONARY ARTERY STENT, INITI 09/23/2016 NACHO FERRER MD Ot T82.857A STENOSIS OF OTHER CARDIAC PROSTH DEV/GRF 09/23/2016 NACHO FERRER MD, Ot Z79.899 OTHER TAX ASSOCIATE (CURRENT) DRUG THERAPY 09/23/2016 NACHO FERRER MD Ot Z95.0 PRESENCE OF CARDIAC PACEMAKER 11/29/2017 NACHO FERRER MD Ot E78.5 HYPERLIPIDEMIA, UNSPECIFIED 11/29/2017 NACHO FERRER MD Ot I07.1 RHEUMATIC TRICUSPID INSUFFICIENCY 11/29/2017 NACHO FERRER MD Ot I10 ESSENTIAL (PRIMARY) HYPERTENSION 11/29/2017 NACHO FERRER MD Ot I25.10 ATHSCL HEART DISEASE OF [place] CORONARY 11/29/2017 NACHO FERRER MD Ot I49.5 SICK SINUS SYNDROME 12/19/2017 NACHO FERRER MD Ot E78.5 HYPERLIPIDEMIA, UNSPECIFIED 12/19/2017 NACHO FERRER MD Ot I07.1 RHEUMATIC TRICUSPID INSUFFICIENCY 12/19/2017 NACHO FERRER MD Ot I10 ESSENTIAL (PRIMARY) HYPERTENSION 12/19/2017 NACHO FERRER MD Ot I25.10 ATHSCL HEART DISEASE OF [place] CORONARY 12/19/2017 NACHO FERRER MD Ot I49.5 SICK SINUS SYNDROME 12/25/2017 NACHO FERRER MD Ot E78.5 HYPERLIPIDEMIA, UNSPECIFIED 12/25/2017 NACHO FERRER MD Ot I07.1 RHEUMATIC TRICUSPID INSUFFICIENCY 12/25/2017 NACHO FERRER MD Ot I10 ESSENTIAL (PRIMARY) HYPERTENSION 12/25/2017 NACHO FERRER MD Ot I25.10 ATHSCL HEART DISEASE OF [place] CORONARY 12/25/2017 CARISSA ZUNIGA, NACHO J Ot I49.5 SICK SINUS SYNDROME Procedures There is no data. Results Test Result Range Methicillin resistant Staphylococcus aureus (MRSA) screening culture - 08:50 Methicillin resistant Staphylococcus aureus (MRSA) screening culture NEG NRG Automated blood complete blood count (hemogram) panel - 08/24/16 12:38 Blood leukocytes automated count (number/volume) 6.3 10*3/uL 4.3-11.0 Blood erythrocytes automated count (number/volume) 4.76 10*6/uL 4.35-5.85 Venous blood hemoglobin measurement (mass/volume) 14.0 g/dL 13.3-17.7 Blood hematocrit (volume fraction) 41 % 40-54 Automated erythrocyte mean corpuscular volume 86 [foz_us] 80-99 Automated erythrocyte mean corpuscular hemoglobin (mass per erythrocyte) 29 pg 25-34 Automated erythrocyte mean corpuscular hemoglobin concentration measurement ( mass/volume) 34 g/dL 32-36 Automated erythrocyte distribution width ratio 13.9 % 10.0-14.5 Automated blood platelet count (count/volume) 214 10*3/uL 130-400 Automated blood platelet mean volume measurement 9.5 [foz_us] 7.4-10.4 Complete urinalysis with reflex to culture - 08/24/16 12:38 Urine color determination YELLOW NRG Urine clarity determination CLEAR NRG Urine pH measurement by test strip 5 5-9 Specific gravity of urine by test strip 1.015 1.016- 1.022 Urine protein assay by test strip, semi-quantitative NEGATIVE NEGATIVE Urine glucose detection by automated test strip NEGATIVE NEGATIVE Erythrocytes detection in urine sediment by light microscopy NEGATIVE NEGATIVE Urine ketones detection by automated test strip NEGATIVE NEGATIVE Urine nitrite detection by test strip NEGATIVE NEGATIVE Urine total bilirubin detection by test strip NEGATIVE NEGATIVE Urine urobilinogen measurement by automated test strip (mass/volume) NORMAL NORMAL Urine leukocyte esterase detection by dipstick NEGATIVE NEGATIVE Automated urine sediment erythrocyte count by microscopy (number/high power field) NONE NRG Automated urine sediment leukocyte count by microscopy (number/high power field ) [HPF] NRG Bacteria detection in urine sediment by light microscopy NEGATIVE NRG Squamous epithelial cells detection in urine sediment by light microscopy 0-2 NRG Crystals detection in urine sediment by light microscopy NONE NRG Casts detection in urine sediment by light microscopy NONE NRG Mucus detection in urine sediment by light microscopy NEGATIVE NRG Complete urinalysis with reflex to culture NO NRG PT panel in platelet poor plasma by coagulation assay - 08/24/16 12:38 Prothrombin time (PT) in platelet poor plasma by coagulation assay 13.4 s 12.2-14.7 INR in platelet poor plasma or blood by coagulation assay 1.1 0.8-1.4 Activated partial thromboplastin time (aPTT) in platelet poor plasma bycoagulation assay - 08/24/16 12:38 Activated partial thromboplastin time (aPTT) in platelet poor plasma bycoagulation assay 29 s 24-35 Comprehensive metabolic panel - 08/24/16 12:38 Serum or plasma sodium measurement (moles/volume) 135 mmol/L 135-145 Serum or plasma potassium measurement (moles/volume) 4.0 mmol/L 3.6-5.0 Serum or plasma chloride measurement (moles/volume) 101 mmol/L 98-107 Carbon dioxide 23 mmol/L 21-32 Serum or plasma anion gap determination (moles/volume) 11 mmol/L 5-14 Serum or plasma urea nitrogen measurement (mass/volume) 20 mg/dL 7-18 Serum or plasma creatinine measurement (mass/volume) 1.20 mg/dL 0.60-1.30 Serum or plasma urea nitrogen/creatinine mass ratio 17 NRG Serum or plasma creatinine measurement with calculation of estimated glomerular filtration rate 58 NRG Serum or plasma glucose measurement (mass/volume) 105 mg/dL 70-105 Serum or plasma calcium measurement (mass/volume) 9.0 mg/dL 8.5-10.1 Serum or plasma total bilirubin measurement (mass/volume) 1.4 mg/dL 0.1-1.0 Serum or plasma alkaline phosphatase measurement (enzymatic activity/volume) 78 U/L 40-136 Serum or plasma aspartate aminotransferase measurement (enzymatic activity/ volume) 19 U/L 5-34 Serum or plasma alanine aminotransferase measurement (enzymatic activity/volume ) 18 U/L 0-55 Serum or plasma protein measurement (mass/volume) 6.9 g/dL 6.4-8.2 Serum or plasma albumin measurement (mass/volume) 4.1 g/dL 3.2-4.5 Lipid 1996 panel - 08/24/16 12:38 Serum or plasma triglyceride measurement (mass/volume) 130 mg/dL <150 Serum or plasma cholesterol measurement (mass/volume) 193 mg/dL < 200 Serum or plasma cholesterol in HDL measurement (mass/volume) 45 mg/ dL 40-60 Cholesterol in LDL [mass/volume] in serum or plasma by direct assay 135 mg/dL 1-129 Serum or plasma cholesterol in VLDL measurement (mass/volume) 26 mg/ dL 5-40 Methicillin resistant Staphylococcus aureus (MRSA) screening culture - 12:38 Methicillin resistant Staphylococcus aureus (MRSA) screening culture NEG NRG Encounters ACCT No. Visit Date/Time Discharge Status Pt. Type Provider Facility Loc./Unit Complaint [id number] 11/28/2017 09:20:00 11/28/2017 23:59:59 CLS Outpatient NACHO FERRER MD [facility] CARD CAD,CAROTID ARTERY STENOSIS [id number] 08/24/2016 11:54:00 08/24/2016 18:50:00 DIS Outpatient NACHO FERRER MD [facility] CATH CP,CAD,HTN,HLP [id number] 02/15/2016 08:13:00 02/15/2016 14:00:00 DIS Outpatient NACHO FERRER MD [facility] CATH SSS,HTN,HLP [id number] 10/13/2015 11:20:00 10/13/2015 16:40:00 DIS Outpatient MAMTA MOHAN MD [facility] SDC SKIN LESION [id number] 10/11/2015 10:15:00 10/11/2015 10:36:00 DIS Outpatient MAMTA MOHAN MD [facility] PREOP SKIN LESIONS [id number] 10/04/2015 16:30:00 10/05/2015 09:23:00 DIS Inpatient BEVERLEY YOUNGER MD [facility] ICU CHEST PAIN [id number] 05/02/2015 06:49:00 05/02/2015 23:59:59 CLS Outpatient NACHO FERRER MD [facility] CARD CHEST PAIN,UNSTABLE ANGINA [id number] 04/29/2015 22:04:00 04/30/2015 08:39:00 DIS Inpatient NACHO FERRER MD [facility] CSD UNSTABLE ANGINA [id number] 03/29/2015 10:36:00 03/29/2015 13:09:00 DIS Emergency COLETTE STOLL DO [facility] ER BLOOD IN URINE [id number] 11/08/2014 02:40:00 11/08/2014 10:31:00 DIS Outpatient NACHO FERRER MD [facility] CATH CP [id number] 07/27/2014 11:25:00 07/27/2014 23:59:59 CLS Outpatient LADAN PEREZ DO [facility] SDC LEFT DJD [id number] 07/20/2014 10:00:00 07/20/2014 23:59:59 CLS Outpatient LADAN PEREZ DO [facility] PREOP LEFT DJD [id number] 09/28/2013 08:33:00 09/28/2013 23:59:59 CLS Outpatient NACHO FERRER MD [facility] RAD CAD,HLP,HTN [id number] 09/17/2013 07:40:00 09/17/2013 23:59:59 CLS Outpatient PIERRE VAZQUEZ MD [facility] RAD ABDOMINAL PAIN, HEMATURIA [id number] 09/15/2013 10:58:00 09/15/2013 23:59:59 CLS Outpatient PIERRE VAZQUEZ MD [facility] RAD HEMATEMESIS [id number] 01/02/2013 07:29:00 01/02/2013 23:59:59 CLS Outpatient DEENA PULIDO MD [facility] SDC SCREENING [id number] 12/31/2012 08:13:00 12/31/2012 23:59:59 CLS Outpatient DEENA PULIDO MD [facility] PREOP SCREENING [id number] 12/29/2012 17:21:00 12/30/2012 18:45:00 DIS Inpatient PIERRE VAZQUEZ MD [facility] 4TH DIZZINESS [id number] 03/25/2012 00:00:00 Document Registration [id number] 03/06/2012 14:12:00 Document Registration [id number] 02/05/2012 05:48:00 Document Registration [id number] 02/01/2012 10:21:00 Document Registration [id number] 12/07/2011 08:41:00 Document Registration [id number] 12/04/2011 13:39:00 Document Registration [id number] 02/19/2011 10:30:00 Document Registration [id number] 09/06/2010 10:34:00 Document Registration [id number] 12/15/2009 17:40:00 Document Registration [id number] 11/15/2016 23:30:19 11/15/2016 23:59:59 [facility] Outpatient
[2018-05-18 16:01] LABS: BASOPHILS % (AUTO) 0 % (0-10); EOSINOPHILS # (AUTO) 0.3 10^3/uL (0.0-0.3); EOSINOPHILS % (AUTO) 5 % (0-10); HEMATOCRIT 40 % (40-54); HEMOGLOBIN 13.4 G/DL (13.3-17.7); LYMPHOCYTES # (AUTO) 1.4 X 10^3 (1.0-4.0); LYMPHOCYTES % (AUTO) 22 % (12-44); MEAN CORPUSCULAR HEMOGLOBIN 30 PG (25-34); MEAN CORPUSCULAR HGB CONC 33 G/DL (32-36); MEAN CORPUSCULAR VOLUME 89 FL (80-99); MEAN PLATELET VOLUME 9.1 FL (7.4-10.4); MONOCYTES # (AUTO) 0.9 X 10^3 (0.0-1.0); MONOCYTES % (AUTO) 14 % (0-12); NEUTROPHILS # (AUTO) 3.7 X 10^3 (1.8-7.8); NEUTROPHILS % (AUTO) 59 % (42-75); PLATELET COUNT 195 10^3/uL (130-400); RED BLOOD COUNT 4.52 10^6/uL (4.35-5.85); WHITE BLOOD COUNT 6.2 10^3/uL (4.3-11.0)
[2018-05-18] MEDS ORDERED: LABETALOL HCL 20 MG/4 ML VIAL ONE (16:16)
[2018-05-18 16:21] LABS: ALANINE AMINOTRANSFERASE 16 U/L (0-55); ALBUMIN 4.2 GM/DL (3.2-4.5); ALKALINE PHOSPHATASE 70 U/L (40-136); BILIRUBIN,TOTAL 0.9 MG/DL (0.1-1.0); BUN/CREATININE RATIO 19; CALCIUM 9.3 MG/DL (8.5-10.1); CARBON DIOXIDE 24 MMOL/L (21-32); CHLORIDE 103 MMOL/L (98-107); CREATININE SERUM 1.13 MG/DL (0.60-1.30); GFR ESTIMATED > 60; GLUCOSE 101 MG/DL (70-105); POTASSIUM 3.8 MMOL/L (3.6-5.0); SODIUM 139 MMOL/L (135-145)
[2018-05-18 16:21] LABS: BILIRUBIN,URINE NEGATIVE (NEGATIVE); CLARITY,URINE CLEAR; COLOR,URINE YELLOW; GLUCOSE, URINE (UA) NEGATIVE (NEGATIVE); KETONES,URINE NEGATIVE (NEGATIVE); LEUKOCYTE ESTERASE ,URINE 2+ (NEGATIVE); NITRITE,URINE NEGATIVE (NEGATIVE); PH,URINE 6 (5-9); PROTEIN,URINE 1+ (NEGATIVE); UROBILINOGEN,URINE 4 MG/DL (NORMAL)
[2018-05-18] MEDS ORDERED: ALTEPLASE 100 MG/VIAL (ACTIVASE) IV ONE ×2 (16:21→16:30)
[2018-05-18] MEDS ORDERED: LABETALOL HCL 20 MG/4 ML VIAL IV ONE (16:30)
[2018-05-18 16:33] LABS: FIBRIN DEGRADATION PRODUCTS 0.62 UG/ML (0.00-0.49); INR 1.1 (0.8-1.4); PROTHROMBIN TIME PATIENT 13.9 SEC (12.2-14.7)
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
[2018-05-18 16:37] LABS: BACTERIA,URINE FEW /HPF; SQUAMOUS EPITHELIAL CELL,UR 0-2 /HPF
[2018-05-18] MEDS ORDERED: CATHETER FLUSH 10 ML SYR IV PRN (16:45)
[2018-05-18] MEDS ORDERED: RECEIVED CONTRAST (Hold Metformin) IV SCH (16:45)
[2018-05-18] MEDS ORDERED: IOHEXOL 350 MG/ML 150 ML (OMNIPAQUE 350) VIAL IV ONE (16:45)
[2018-05-18] MEDS ORDERED: NS 250 ML (IVPB) BAG IV ONE (16:45)
--- NOTE | 2018-05-18 16:56 | Diagnostic Imaging Report ---
EXAMINATION: Chest radiograph, portable AP view. DATE: May 18, 2018 at 1609 hours. INDICATION: 82-year-old male, slurred speech and confusion. COMPARISON: August 24, 2016. FINDINGS: There is a left-sided cardiac assist device with right atrial and right ventricular leads. The leads appear intact. There are median sternotomy wires. Stable overall appearance of the cardiomediastinal silhouette. There is no identified pneumothorax. There is no large pleural effusion. There is no identified interval focal airspace consolidation. 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 There are acromioclavicular degenerative changes, bilaterally. IMPRESSION: No identified interval acute cardiopulmonary abnormality. Dictated by: Dictated on workstation # [id number]
--- NOTE | 2018-05-18 16:59 | Diagnostic Imaging Report ---
EXAM: CT head without contrast. DATE: May 18, 2018. INDICATION: 82-year-old male, slurred speech and confusion. Evaluation for stroke. COMPARISON: CT head December 29, 2012. FINDINGS: The ventricles and CSF spaces are normal in size and configuration for patient age. There is no identified abnormal extra-axial fluid collection. There is no evidence of acute intracranial hemorrhage. There is no mass effect or midline shift. The visualized portions of the paranasal sinuses, mastoid air cells and middle ears are well aerated. IMPRESSION: No identified acute intracranial abnormality. Dictated by: Dictated on workstation # [id number]
--- NOTE | 2018-05-18 17:33 | Diagnostic Imaging Report ---
PROCEDURE: CT angiography of the head and CT angiography of the neck with and without contrast. TECHNIQUE: Contiguous noncontrast images were obtained from the skull base through the vertex. After intravenous contrast administration, helical CT angiography of the neck was performed. Source data was reformatted into multiple MIP projections. Delayed post contrast acquisition was also obtained. INDICATION: Slurred speech and confusion. Concern for stroke. COMPARISON: Head CT also performed today. FINDINGS: CTA NECK: Evaluation is markedly limited due to suboptimal contrast bolus, especially the intracerebral vasculature. Evaluation of the aortic arch and proximal vessels is limited by streak artifact caused by the patient's pacemaker. Aorta: Aortic arch is normal, with standard three vessel branching pattern. Anterior Circulation: The origin of the bilateral common carotid arteries are patent. No stenosis of the common carotid arteries in the neck. No significant stenosis of the internal carotid arteries per NASCET criteria. The cervical segments of the bilateral ICAs are patent. Posterior Circulation: Origins of the bilateral vertebral arteries are normal. Vertebral arteries are co-dominant. The proximal extraousseous, intrasosseous, and distal extraosseous segments of the vertebral arteries are patent without dissection or stenosis. Non-vascular: No cervical lymphadenopathy. The airway is patent. No evidence of mucosal-based mass lesion in the pharynx. Thyroid is normal. Salivary glands are normal. Marked multilevel degenerative change of the cervical spine. No acute osseous abnormality. CTA HEAD: Anterior Circulation: The distal internal carotid arteries are patent. The bilateral M1 and M2 segments of the middle cerebral arteries are patent and without stenosis. The more distal visualized MCA branches are also patent. The anterior cerebral arteries are patent and without stenosis. Anterior communicating artery is patent. No saccular aneurysm in the anterior circulation. Posterior Circulation: The bilateral intracranial segments of the vertebral arteries are patent. The basilar artery is patent and without stenosis. The posterior cerebral arteries are patent. No saccular aneurysm in the posterior circulation. IMPRESSION: 1. No intra-cranial major arterial occlusion, significant stenosis or aneurysm. 2. No arterial occlusion or stenosis in the major neck arteries. Dictated by: Dictated on workstation # [id number]
--- NOTE | 2018-05-18 17:33 | Diagnostic Imaging Report ---
EXAM: CT head perfusion imaging with intravenous contrast. DATE: May 18, 2018. INDICATION: 82-year-old male, slurred speech and confusion. Right-sided weakness. COMPARISON: CT head without contrast, May 18, 2018. FINDINGS: There is no identified abnormal area of increased mean transit time. There is no identified abnormal cerebral blood flow or cerebral blood volume. IMPRESSION: No areas of ischemic penumbra or identified infarct. Dictated by: Dictated on workstation # [id number]
[2018-05-18] MEDS ORDERED: NS IV 1000 ML 1,000 ML ONE (17:39)
[2018-05-18] MEDS ORDERED: NS IV 1000 ML 1,000 ML IV STA (17:40)
[2018-05-18] MEDS ORDERED: cefTRIAXone FOR IV USE 1,000 MG in NS (IVPB) 50 ML IV ONE (18:15)
--- OUTSIDE RECORDS SUMMARY | 2018-05-18 18:39 | XMS REPORT | Continuity of Care Document ---
Author Author [facility] Organization [facility] Address Unknown Phone Unavailable Allergies Active Description Code Type Severity Reaction Onset Reported/Identified Relationship to Patient Clinical Status Yes No Known Drug Allergies [id number] Drug Allergy Unknown N/A 10/11/2015 Medications There [...] VAZQUEZ MD Ot 414.01 CORONARY ATHEROSCLEROSIS OF [place] CORON 12/30/2012 PIERRE VAZQUEZ MD Ot 433.10 [...] FERRER MD Ot 414.01 CORONARY ATHEROSCLEROSIS OF [place] CORON 11/08/2014 NACHO FERRER MD Ot 414.02 [...] UNSPECIFIED 03/29/2015 DODIE SANDEEA Rajiv Ot Z79.82 AUTOCAD OPERATOR (CURRENT) USE OF ASPIRIN 03/29/2015 COLETTE STOLL DO Ot Z79.899 OTHER AUTOCAD OPERATOR (CURRENT) DRUG THERAPY 03/29/2015 COLETTE STOLL DO [...] ZUNIGA, PIERRE Larios Ot 592.0 04/30/2015 PIERRE VAZQUEZ MD Ot 599.70 04/30/2015 [...] MD Ot I25.119 ATHSCL HEART DISEASE OF [place] COR ART W 04/30/2015 NACHO FERRER MD [...] 10/05/2015 BEVERLEY YOUNGER MD Ot I25.750 ATHSCL [place] COR ART OF TXPLT HEART W U [...] 10/05/2015 BEVERLEY YOUNGER MD Ot I25.750 ATHSCL [place] COR ART OF TXPLT HEART W U [...] MD Ot I25.10 ATHSCL HEART DISEASE OF [place] CORONARY 02/15/2016 NACHO FERRER MD Ot I48.0 PAROXYSMAL ATRIAL FIBRILLATION 02/15/2016 NACHO FERRER MD, Ot I49.5 SICK SINUS SYNDROME 02/15/2016 NACHO FERRER MD, Ot Z45.010 ENCNTR FOR CHECKING AND TEST OF CARD PAC 02/15/2016 NACHO FERRER MD, Ot Z79.899 OTHER AUTOCAD OPERATOR (CURRENT) DRUG THERAPY 03/12/2016 NACHO FERRER MD, Ot E78.5 HYPERLIPIDEMIA, UNSPECIFIED 03/12/2016 NACHO FERRER MD Ot I10 ESSENTIAL (PRIMARY) HYPERTENSION 03/12/2016 NACHO FERRER MD, Ot I25.10 ATHSCL HEART DISEASE OF [place] CORONARY 03/12/2016 NACHO FERRER MD Ot I48.0 PAROXYSMAL ATRIAL FIBRILLATION 03/12/2016 NACHO FERRER MD Ot I49.5 SICK SINUS SYNDROME 03/12/2016 NACHO FERRER MD Ot Z45.010 ENCNTR FOR CHECKING AND TEST OF CARD PAC 03/12/2016 NACHO FERRER MD Ot Z79.899 OTHER AUTOCAD OPERATOR (CURRENT) DRUG THERAPY 03/14/2016 NACHO FERRER MD Ot E78.5 HYPERLIPIDEMIA, UNSPECIFIED 03/14/2016 NACHO FERRER MD Ot I10 ESSENTIAL (PRIMARY) HYPERTENSION 03/14/2016 NACHO FERRER MD Ot I25.10 ATHSCL HEART DISEASE OF [place] CORONARY 03/14/2016 NACHO FERRER MD Ot I48.0 PAROXYSMAL ATRIAL FIBRILLATION 03/14/2016 NACHO FERRER MD Ot I49.5 SICK SINUS SYNDROME 03/14/2016 NACHO FERRER MD Ot Z45.010 ENCNTR FOR CHECKING AND TEST OF CARD PAC 03/14/2016 NACHO FERRER MD Ot Z79.899 OTHER USP (CURRENT) DRUG THERAPY 08/24/2016 Ot 185 MALIGN [...] MD, Ot I25.10 ATHSCL HEART DISEASE OF [place] CORONARY 08/24/2016 NACHO FERRER MD, Ot 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 08/24/2016 NACHO FERRER MD, Ot I49.5 SICK SINUS SYNDROME 08/24/2016 NACHO FERRER MD Ot R07.89 OTHER CHEST PAIN 08/24/2016 NACHO FERRER MD, Ot T82.855A STENOSIS OF CORONARY ARTERY STENT, INITI 08/24/2016 NACHO FERRER MD, Ot T82.857A STENOSIS OF OTHER CARDIAC PROSTH DEV/GRF 08/24/2016 NACHO FERRER MD, Ot Z79.899 OTHER USP (CURRENT) DRUG THERAPY 08/24/2016 NACHO FERRER MD Ot Z95.0 PRESENCE OF CARDIAC PACEMAKER 09/03/2016 NACHO FERRER MD Ot E78.5 HYPERLIPIDEMIA, UNSPECIFIED 09/03/2016 NACHO FERRER MD Ot I10 ESSENTIAL (PRIMARY) HYPERTENSION 09/03/2016 NACHO FERRER MD Ot I25.10 ATHSCL HEART DISEASE OF [place] CORONARY 09/03/2016 NACHO FERRER MD Ot 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 09/03/2016 NACHO FERRER MD Ot I49.5 SICK SINUS SYNDROME 09/03/2016 NACHO FERRER MD Ot R07.89 OTHER CHEST PAIN 09/03/2016 NAHCO FERRER MD Ot T82.855A STENOSIS OF CORONARY ARTERY STENT, INITI 09/03/2016 NACHO FERRER MD Ot T82.857A STENOSIS OF OTHER CARDIAC PROSTH DEV/GRF 09/03/2016 NACHO FERRER MD Ot Z79.899 OTHER AUTOCAD OPERATOR (CURRENT) DRUG THERAPY 09/03/2016 NACHO FERRER MD Ot Z95.0 PRESENCE OF CARDIAC PACEMAKER 09/13/2016 NACHO FERRER MD Ot E78.5 HYPERLIPIDEMIA, UNSPECIFIED 09/13/2016 NACHO FERRER MD Ot I10 ESSENTIAL (PRIMARY) HYPERTENSION 09/13/2016 NACHO FERRER MD Ot I25.10 ATHSCL HEART DISEASE OF [place] CORONARY 09/13/2016 NACHO FERRER MD Ot 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 09/13/2016 NACHO FERRER MD Ot I49.5 SICK SINUS SYNDROME 09/13/2016 NACHO FERRER MD Ot R07.89 OTHER CHEST PAIN 09/13/2016 NACHO FERRER MD Ot T82.855A STENOSIS OF CORONARY ARTERY STENT, INITI 09/13/2016 NACHO FERRER MD Ot T82.857A STENOSIS OF OTHER CARDIAC PROSTH DEV/GRF 09/13/2016 NACHO FERRER MD Ot Z79.899 OTHER USP (CURRENT) DRUG THERAPY 09/13/2016 NACHO FERRER MD Ot Z95.0 PRESENCE OF CARDIAC PACEMAKER 09/23/2016 NACHO FERRER MD Ot E78.5 HYPERLIPIDEMIA, UNSPECIFIED 09/23/2016 NACHO FERRER MD Ot I10 ESSENTIAL (PRIMARY) HYPERTENSION 09/23/2016 NACHO FERRER MD Ot I25.10 ATHSCL HEART DISEASE OF [place] CORONARY 09/23/2016 NACHO FERRER MD Ot 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 09/23/2016 NACHO FERRER MD Ot I49.5 SICK SINUS SYNDROME 09/23/2016 NACHO FERRRE MD Ot R07.89 OTHER CHEST PAIN 09/23/2016 NACHO FERRER MD Ot T82.855A STENOSIS OF CORONARY ARTERY STENT, INITI 09/23/2016 NACHO FERRER MD Ot T82.857A STENOSIS OF OTHER CARDIAC PROSTH DEV/GRF 09/23/2016 NACHO FERRER MD, Ot Z79.899 OTHER AUTOCAD OPERATOR (CURRENT) DRUG THERAPY 09/23/2016 NACHO FERRER MD Ot Z95.0 PRESENCE OF CARDIAC PACEMAKER 11/29/2017 NACHO FERRER MD Ot E78.5 HYPERLIPIDEMIA, UNSPECIFIED 11/29/2017 NACHO FERRER MD Ot I07.1 RHEUMATIC TRICUSPID INSUFFICIENCY 11/29/2017 NACHO FERRER MD Ot I10 ESSENTIAL (PRIMARY) HYPERTENSION 11/29/2017 NACHO FERRER MD Ot I25.10 ATHSCL HEART DISEASE OF [place] CORONARY 11/29/2017 NACHO FERRER MD Ot I49.5 SICK SINUS SYNDROME 12/19/2017 NACHO FERRER MD Ot E78.5 HYPERLIPIDEMIA, UNSPECIFIED 12/19/2017 NACHO FERRER MD Ot I07.1 RHEUMATIC TRICUSPID INSUFFICIENCY 12/19/2017 NACHO FERRER MD Ot I10 ESSENTIAL (PRIMARY) HYPERTENSION 12/19/2017 NACHO FERRER MD Ot I25.10 ATHSCL HEART DISEASE OF [place] CORONARY 12/19/2017 NACHO FERRER MD Ot I49.5 SICK SINUS SYNDROME 12/25/2017 NACHO FERRER MD Ot E78.5 HYPERLIPIDEMIA, UNSPECIFIED 12/25/2017 NACHO FERRER MD Ot I07.1 RHEUMATIC TRICUSPID INSUFFICIENCY 12/25/2017 NACHO FERRER MD Ot I10 ESSENTIAL (PRIMARY) HYPERTENSION 12/25/2017 NACHO FERRER MD Ot I25.10 ATHSCL HEART DISEASE OF [place] CORONARY 12/25/2017 CARISSA ZUNIGA, NACHO J Ot [...] Staphylococcus aureus (MRSA) screening culture NEG NRG Complete blood count (CBC) with automated white blood cell (WBC) differential - 05/18/18 15:56 Blood leukocytes automated count (number/volume) 6.2 10*3/uL 4.3-11.0 Blood erythrocytes automated count (number/volume) 4.52 10*6/uL 4.35-5.85 Venous blood hemoglobin measurement (mass/volume) 13.4 g/dL 13.3-17.7 Blood hematocrit (volume fraction) 40 % 40-54 Automated erythrocyte mean corpuscular volume 89 [foz_us] 80-99 Automated erythrocyte mean corpuscular hemoglobin (mass per erythrocyte) 30 pg 25-34 Automated erythrocyte mean corpuscular hemoglobin concentration measurement ( mass/volume) 33 g/dL 32-36 Automated erythrocyte distribution width ratio 14.0 % 10.0-14.5 Automated blood platelet count (count/volume) 195 10*3/uL 130-400 Automated blood platelet mean volume measurement 9.1 [foz_us] 7.4-10.4 Automated blood neutrophils/100 leukocytes 59 % 42-75 Automated blood lymphocytes/100 leukocytes 22 % 12-44 Blood monocytes/100 leukocytes 14 % 0-12 Automated blood eosinophils/100 leukocytes 5 % 0-10 Automated blood basophils/100 leukocytes 0 % 0-10 Blood neutrophils automated count (number/volume) 3.7 10*3 1.8-7.8 Blood lymphocytes automated count (number/volume) 1.4 10*3 1.0-4.0 Blood monocytes automated count (number/volume) 0.9 10*3 0.0-1.0 Automated eosinophil count 0.3 10*3/uL 0.0-0.3 Automated blood basophil count (count/volume) 0.0 10*3/uL 0.0-0.1 Comprehensive metabolic panel - 05/18/18 15:56 Serum or plasma sodium measurement (moles/volume) 139 mmol/L 135-145 Serum or plasma potassium measurement (moles/volume) 3.8 mmol/L 3.6-5.0 Serum or plasma chloride measurement (moles/volume) 103 mmol/L 98-107 Carbon dioxide 24 mmol/L 21-32 Serum or plasma anion gap determination (moles/volume) 12 mmol/L 5-14 Serum or plasma urea nitrogen measurement (mass/volume) 21 mg/dL 7-18 Serum or plasma creatinine measurement (mass/volume) 1.13 mg/dL 0.60-1.30 Serum or plasma urea nitrogen/creatinine mass ratio 19 NRG Serum or plasma creatinine measurement with calculation of estimated glomerular filtration rate > NRG Serum or plasma glucose measurement (mass/volume) 101 mg/dL 70-105 Serum or plasma calcium measurement (mass/volume) 9.3 mg/dL 8.5-10.1 Serum or plasma total bilirubin measurement (mass/volume) 0.9 mg/dL 0.1-1.0 Serum or plasma alkaline phosphatase measurement (enzymatic activity/volume) 70 U/L 40-136 Serum or plasma aspartate aminotransferase measurement (enzymatic activity/ volume) 16 U/L 5-34 Serum or plasma alanine aminotransferase measurement (enzymatic activity/volume ) 16 U/L 0-55 Serum or plasma protein measurement (mass/volume) 7.0 g/dL 6.4-8.2 Serum or plasma albumin measurement (mass/volume) 4.2 g/dL 3.2-4.5 CALCIUM CORRECTED 9.1 mg/dL 8.5-10.1 Serum or plasma troponin i.cardiac measurement (mass/volume) - 05/18/18 15:56 Serum or plasma troponin i.cardiac measurement (mass/volume) < ng/ mL <0.30 PT panel in platelet poor plasma by coagulation assay - 05/18/18 15:56 Prothrombin time (PT) in platelet poor plasma by coagulation assay 13.9 s 12.2-14.7 INR in platelet poor plasma or blood by coagulation assay 1.1 0.8-1.4 Activated partial thromboplastin time (aPTT) in platelet poor plasma bycoagulation assay - 05/18/18 15:56 Activated partial thromboplastin time (aPTT) in platelet poor plasma bycoagulation assay 31 s 24-35 Fibrin D-dimer FEU measurement in platelet poor plasma (mass/volume) - 15:56 Fibrin D-dimer FEU measurement in platelet poor plasma (mass/volume) 0.62 ug/mL 0.00-0.49 Capillary blood glucose measurement by glucometer (mass/volume) - 05/18/18 16: 06 Capillary blood glucose measurement by glucometer (mass/volume) 104 mg/dL 70-110 Complete urinalysis with reflex to culture - 05/18/18 16:14 Urine color determination YELLOW NRG Urine clarity determination CLEAR NRG Urine pH measurement by test strip 6 5-9 Specific gravity of urine by test strip 1.020 1.016- 1.022 Urine protein assay by test strip, semi-quantitative 1+ NEGATIVE Urine glucose detection by automated test strip NEGATIVE NEGATIVE Erythrocytes detection in urine sediment by light microscopy 1+ NEGATIVE Urine ketones detection by automated test strip NEGATIVE NEGATIVE Urine nitrite detection by test strip NEGATIVE NEGATIVE Urine total bilirubin detection by test strip NEGATIVE NEGATIVE Urine urobilinogen measurement by automated test strip (mass/volume) 4 mg/dL NORMAL Urine leukocyte esterase detection by dipstick 2+ NEGATIVE Automated urine sediment erythrocyte count by microscopy (number/high power field) [HPF] NRG Automated urine sediment leukocyte count by microscopy (number/high power field ) [HPF] NRG Bacteria detection in urine sediment by light microscopy FEW NRG Squamous epithelial cells detection in urine sediment by light microscopy 0-2 NRG Crystals detection in urine sediment by light microscopy NONE NRG Casts detection in urine sediment by light microscopy NONE NRG Mucus detection in urine sediment by light microscopy SMALL NRG Complete urinalysis with reflex to culture YES NRG Blood lactic acid measurement (moles/volume) - 05/18/18 17:50 Blood lactic acid measurement (moles/volume) 1.26 mmol/L 0.50-2.00 Encounters ACCT No. Visit Date/Time Discharge Status Pt. Type Provider Facility Loc./Unit Complaint [id number] 11/28/2017 09:20:00 11/28/2017 23:59:59 CLS Outpatient NACHO FERRER MD [facility] CARD CAD,CAROTID ARTERY STENOSIS [id number] 08/24/2016 11:54:00 08/24/2016 18:50:00 DIS Outpatient NACHO FERRER MD [facility] CATH CP,CAD,HTN,HLP [id number] 02/15/2016 08:13:00 02/15/2016 14:00:00 DIS Outpatient NACHO FERRER MD [facility] CATH SSS,HTN,HLP [id number] 10/13/2015 11:20:00 10/13/2015 16:40:00 DIS Outpatient KIMBERLEE ZUNIGA, MAMTA Larios [facility] SDC SKIN LESION [id number] 10/11/2015 10:15:00 10/11/2015 10:36:00 DIS Outpatient MAMTA MOHAN MD [facility] PREOP SKIN LESIONS [id number] 10/04/2015 16:30:00 10/05/2015 09:23:00 DIS Inpatient BEVERLEY YOUNGER MD [facility] ICU CHEST PAIN [id number] 05/02/2015 06:49:00 05/02/2015 23:59:59 CLS Outpatient NACHO FERRER MD [facility] CARD CHEST PAIN,UNSTABLE ANGINA [id number] 04/29/2015 22:04:00 04/30/2015 08:39:00 DIS Inpatient NACHO FERRER MD [facility] CSD UNSTABLE ANGINA [id number] 03/29/2015 10:36:00 03/29/2015 13:09:00 DIS Emergency COLETTE STOLL DO [facility] ER BLOOD IN URINE [id number] 11/08/2014 02:40:00 11/08/2014 10:31:00 DIS Outpatient NACHO FERRER MD [facility] CATH CP [id number] 07/27/2014 11:25:00 07/27/2014 23:59:59 CLS Outpatient LADAN PEREZ DO [facility] SDC LEFT DJD [id number] 07/20/2014 10:00:00 07/20/2014 23:59:59 CLS Outpatient LADAN PEREZ DO [facility] PREOP LEFT DJD [id number] 09/28/2013 08:33:00 09/28/2013 23:59:59 CLS Outpatient NACHO FERRER MD [facility] RAD CAD,HLP,HTN [id number] 09/17/2013 07:40:00 09/17/2013 23:59:59 CLS Outpatient PIERRE VAZQUEZ MD [facility] RAD ABDOMINAL PAIN, HEMATURIA [id number] 09/15/2013 10:58:00 09/15/2013 23:59:59 CLS Outpatient PIERRE VAZQUEZ MD [facility] RAD HEMATEMESIS [id number] 01/02/2013 07:29:00 01/02/2013 23:59:59 CLS Outpatient DEENA PULIDO MD [facility] SDC SCREENING [id number] 12/31/2012 08:13:00 12/31/2012 23:59:59 CLS Outpatient DEENA PULIDO MD [facility] PREOP SCREENING [id number] 12/29/2012 17:21:00 12/30/2012 18:45:00 DIS Inpatient PIERRE VAZQUEZ MD [facility] 4TH DIZZINESS [id number] 05/18/2018 16:02:00 Document Registration [id number] 03/25/2012 00:00:00 Document Registration [id number] 03/06/2012 14:12:00 Document Registration [id number] 02/05/2012 05:48:00 Document Registration [id number] 02/01/2012 10:21:00 Document Registration [id number] 12/07/2011 08:41:00 Document Registration [id number] 12/04/2011 13:39:00 Document Registration [id number] 02/19/2011 10:30:00 Document Registration [id number] 09/06/2010 10:34:00 Document Registration [id number] 12/15/2009 17:40:00 Document Registration [id number] 11/15/2016 23:30:19 11/15/2016 23:59:59 CLS Outpatient
[2018-05-18] MEDS: NS IV 1000 ML 1,000 ML IV SCH (19:00)
[2018-05-18] MEDS ORDERED: NS IV 1000 ML 1,000 ML IV SCH (19:00)
[2018-05-18] MEDS ORDERED: MILK OF MAGNESIA 400 MG/5 ML 30 ML UDC PO PRN (21:00)
[2018-05-18] MEDS ORDERED: ACETAMINOPHEN 325 MG TABLET PO PRN (21:00)
[2018-05-18] MEDS ORDERED: RT-ALBUTEROL SULF 2.5 MG/3 ML PRE-MIX VIAL INH PRN (22:15)
[2018-05-19] VITALS (12 sets, daily range): BP systolic 120–169; BP diastolic 58–79
[2018-05-19 03:36] LABS: BASOPHILS % (AUTO) 0 % (0-10); EOSINOPHILS # (AUTO) 0.2 10^3/uL (0.0-0.3); EOSINOPHILS % (AUTO) 2 % (0-10); HEMATOCRIT 34 % (40-54); HEMOGLOBIN 11.6 G/DL (13.3-17.7); LYMPHOCYTES % (AUTO) 12 % (12-44); MEAN CORPUSCULAR HEMOGLOBIN 30 PG (25-34); MEAN CORPUSCULAR HGB CONC 34 G/DL (32-36); MEAN CORPUSCULAR VOLUME 89 FL (80-99); MEAN PLATELET VOLUME 9.8 FL (7.4-10.4); MONOCYTES # (AUTO) 0.8 X 10^3 (0.0-1.0); MONOCYTES % (AUTO) 10 % (0-12); NEUTROPHILS # (AUTO) 5.9 X 10^3 (1.8-7.8); NEUTROPHILS % (AUTO) 75 % (42-75); PLATELET COUNT 168 10^3/uL (130-400); RED BLOOD COUNT 3.85 10^6/uL (4.35-5.85); RED CELL DISTRIBUTION WIDTH 14.2 % (10.0-14.5); WHITE BLOOD COUNT 7.9 10^3/uL (4.3-11.0)
[2018-05-19 04:00] LABS: ALANINE AMINOTRANSFERASE 13 U/L (0-55); ALBUMIN 3.4 GM/DL (3.2-4.5); ALKALINE PHOSPHATASE 57 U/L (40-136); BILIRUBIN,TOTAL 1.1 MG/DL (0.1-1.0); BUN/CREATININE RATIO 17; CALCIUM 8.2 MG/DL (8.5-10.1); CARBON DIOXIDE 22 MMOL/L (21-32); CHLORIDE 106 MMOL/L (98-107); CREATININE SERUM 0.92 MG/DL (0.60-1.30); GFR ESTIMATED > 60; GLUCOSE 100 MG/DL (70-105); MAGNESIUM 1.6 MG/DL (1.8-2.4); PHOSPHORUS 2.9 MG/DL (2.3-4.7); POTASSIUM 3.4 MMOL/L (3.6-5.0); SODIUM 138 MMOL/L (135-145); TOTAL PROTEIN 5.6 GM/DL (6.4-8.2)
[2018-05-19] MEDS ORDERED: MAGNESIUM 1 GM/100 ML IVPB 200 ML IV ONE (04:13)
[2018-05-19] MEDS: MAGNESIUM 1 GM/100 ML IVPB 100 ML IV SCH ×2 (04:18→05:19)
[2018-05-19] MEDS ORDERED: POTASSIUM CL 10MEQ/50ML IVPB 100 ML IV ONE (05:08)
--- NOTE | 2018-05-19 05:36 | Pulmonary Consultation ---
History of Present Illness History of Present Illness Date of Consultation 05/19/18 05:31 Time Seen by Provider: 05:31 Date of Admission History of Present Illness 82yo with hx of CAD presented to the ED secondary to witnessed sudden changes in speech and weakness. Upon ED admission pt had garbled speech and obvious weakness. [facility] stroke was called. TPA was given. Symptoms have improved throughout the night. NIH is currently 7. It was NIH of 9 on admission. I am consulted for ICU admission. Allergies and Home Medications Allergies Coded Allergies: No Known Drug Allergies (Verified , 10/11/15) Home Medications Ascorbate Calcium 500 Mg Tablet, 500 MG PO DAILY, (Reported) Aspirin 81 Mg Tablet.dr, 81 MG PO DAILY, (Reported) Cholecalciferol (Vitamin D3) 2,000 Unit Tab.chew, 2,000 UNIT PO DAILY, (Reported ) Ezetimibe 10 Mg Tablet, 10 MG PO DAILY, (Reported) Glucosamine/D3/Boswellia Annalise 1 Each Tablet, 1 TAB PO BID, (Reported) Metoprolol Tartrate 50 Mg Tablet, 50 MG PO BID, (Reported) Naproxen Na-Diphenhydramin HCl 1 Each Tablet, 1 TAB PO HS, (Reported) Naproxen Sodium 220 Mg Tablet, 220 MG PO Q8H PRN for PAIN-MILD, (Reported) Ranolazine 500 Mg Tab.er.12h, 500 MG PO BID, (Reported) Ubidecarenone 200 Mg Capsule, 200 MG PO DAILY, (Reported) Past Rhankde-Ufddxm-Bipoqt Hx Past Med/Social Hx: Reviewed Nursing Past Med/Soc Hx Patient Social History Alcohol Use: Occasionally Uses Number of Drinks Today: GG Alcohol Beverage of Choice: Whiskey Recreational Drug Use: No Smoking Status: Former Smoker Former Smoker, Quit: Aug 25, 1995 2nd Hand Smoke Exposure: No Recent Foreign Travel: No Contact w/Someone Who Travel: No Recent Infectious Disease Expo: No Recent Hopitalizations: No Physical Abuse: No Sexual Abuse: No Mistreated: No Fear: No Immunizations Up To Date Tetanus Booster (TDap): Unknown PED Vaccines UTD: No Seasonal Allergies Seasonal Allergies: No Past Medical History Surgeries: Yes Bladder Surgery, Cardiac, CABG, Coronary Stent, Gallbladder, Orthopedic, Pacemaker, Transurethral Resection Respiratory: Yes Asthma Cardiac: Yes Coronary Artery Disease, Heart Attack, Hypertension Neurological: No Reproductive Disorders: No Sexually Transmitted Disease: No HIV/AIDS: No Genitourinary: Yes Prostate Problems Gastrointestinal: Yes Gall Bladder Disease Musculoskeletal: Yes Arthritis, Chronic Back Pain Endocrine: No Loss of Vision: Denies Hearing Impairment: Denies Cancer: Yes Prostate Psychosocial: No Integumentary: No Blood Disorders: No Adverse Reaction/Blood Tranf: No Family Medical History Reviewed Nursing Family Hx Alzheimer's disease 19 FATHER, Onset:60 years & older Cardiovascular disease 19 FATHER, Onset:15's - 20 (Was told that he had a "Leaky Heart") FH: brain cancer 19 MOTHER, Onset:60 years & older G8 BROTHER, Onset:50's - 60 FH: lung cancer 19 MOTHER, Onset:60 years & older FH: sudden G8 BROTHER, Onset:Childhood (Was ran over by a car at the age of 6.) Heart Disease, Hypertension Review of Systems Time Seen by Provider: 05:35 Constitutional: Weakness, Malaise; No: Fever, Chills, Sweats Eyes: No: Pain, Vision change, Conjunctivae inflammation, Eyelid inflammation, Other, Redness ENT: No: Ear pain, Ear discharge, Nose pain, Nose discharge, Nose congestion, Mouth pain, Mouth swelling, Throat pain, Throat swelling, Other Respiratory: No: Cough, Dry, Shortness of breath, SOB with excertion, Wheezing , Hemoptysis, Pleuritic Pain, Sputum, Wheezing, Other Sepsis Event Evaluation Height, Weight, BMI Height: 5'9.00" Weight: 187lbs. 0.8oz. 84.190022vx; 27.6 BMI Method:Stated Exam Exam Vital Signs Date Time Temp Pulse Resp B/P (MAP) Pulse Ox O2 Delivery O2 Flow Rate FiO2 05/19/18 04:00 Room Air 05/19/18 03:31 98.2 05/19/18 02:00 63 12 133/64 (87) 99 Room Air 05/19/18 01:00 60 16 127/58 (81) 98 Room Air 05/19/18 01:00 60 05/19/18 00:00 60 14 139/67 (91) 96 Room Air 05/19/18 00:00 Room Air 05/19/18 00:00 98.5 05/18/18 23:00 60 11 142/77 (98) 96 Room Air 05/18/18 22:00 60 14 152/76 (101) 97 Room Air 05/18/18 21:32 97 Room Air 05/18/18 21:32 60 97 21 05/18/18 21:00 62 11 128/55 (79) 97 Room Air 05/18/18 20:45 61 22 140/71 (94) 96 Room Air 05/18/18 20:30 65 20 144/87 (106) 98 Room Air 05/18/18 20:15 65 17 157/76 (103) 99 Room Air 05/18/18 20:00 64 12 151/116 (128) 98 Room Air 05/18/18 19:45 66 12 148/77 (100) 98 Room Air 05/18/18 19:30 65 13 157/86 (109) 100 Room Air 05/18/18 19:15 67 17 140/78 (98) 96 Room Air 05/18/18 19:04 97.2 74 27 160/95 (116) 96 Room Air 05/18/18 19:04 79 05/18/18 19:00 Room Air 05/18/18 18:40 97.8 66 15 138/75 (96) 96 Room Air 05/18/18 18:19 97.8 70 24 148/92 95 Room Air 05/18/18 16:56 98.2 71 18/97 (71) 96 Room Air 05/18/18 15:54 85 Nasal Cannula 2.00 05/18/18 15:51 71 29 182/97 85 I & O 05/19/18 07:00 Intake Total 1220 ml Output Total 1425 ml Balance -205 ml Height & Weight Height: 5'9.00" Weight: 187lbs. 0.8oz. 84.318968by; 27.6 BMI Method:Stated Capillary Refill: Less Than 3 Seconds Peripheral Pulses: 2+ Dorsalis Pedis (R), 2+ Left Dors-Pedis (L), 2+ Radial Pulses (R), 2+ Radial Pulses (L) Gastrointestinal: non tender, soft Results Lab Laboratory Tests 05/18/18 15:56 05/19/18 03:25 Assessment/Plan Assessment/Plan Acute CVA s/p TPA -Start ASA or Plavix 24hours after TPA -Check echo -MRI of brain is pending for this AM -PT/OT hypomag, hypokal -Replace Hx CAD -Cardiology is consulted. Post TPA CT of head pending. I will sign off once pt transfers out of ICU. DONALDO MICHAUD DO May 19, 2018 05:36
[2018-05-19] MEDS: POTASSIUM CL 10MEQ/50ML IVPB 50 ML IV SCH ×2 (06:27→06:42)
[2018-05-19] MEDS ORDERED: FLU QUADRIvalent (5+ YOA) 2018-2019 (AFLURIA) 0.5 ML IM ONE (07:30)
--- NOTE | 2018-05-19 08:32 | History & Physicial ---
History of Present Illness History of Present Illness Date of Admission May 18, 2018 at 18:24 I consulted on this patient on 05/19/18 08:31 Attending Physician Beverley Dumont MD Admitting Physician Beverley Dumont MD Consult Allergies and Home Medications Allergies Coded Allergies: No Known Drug Allergies (Verified , 10/11/15) Home Medications Amlodipine Besylate 5 Mg Tablet, 5 MG PO DAILY, (Reported) Aspirin 81 Mg Tabec, 81 MG PO DAILY, (Reported) Metoprolol Tartrate 50 Mg Tablet, 50 MG PO BID, (Reported) Naproxen Na-Diphenhydramin HCl 1 Each Tablet, 0.5 TAB PO HS PRN for SLEEP, ( Reported) Naproxen Sodium 220 Mg Tablet, 220 MG PO BID PRN for PAIN, (Reported) Ranolazine 500 Mg Tab.er.12h, 1,000 MG PO Q12H Prescribed by: NACHO FERRER on 08/24/16 142 Rosuvastatin Calcium 10 Mg Tablet, 10 MG PO DAILY Prescribed by: NACHO FERRER on 08/24/16 1428 Ubidecarenone 200 Mg Capsule, 200 MG PO DAILY, (Reported) Past Iribsan-Ojiqao-Ttnijc Hx Patient Social History Alcohol Use: Occasionally Uses Number of Drinks Today: GG Alcohol Beverage of Choice: Whiskey Recreational Drug Use: No Smoking Status: Former Smoker Former Smoker, Quit: Aug 25, 1995 2nd Hand Smoke Exposure: No Physical Abuse Screen: No Sexual Abuse: No Recent Foreign Travel: No Contact w/other who traveled: No Recent Hopitalizations: No Recent Infectious Disease Expo: No Immunizations Up To Date Tetanus Booster (TDap): Unknown Pediatric: No Seasonal Allergies Seasonal Allergies: No Surgeries Yes Bladder Surgery, Cardiac, CABG, Coronary Stent, Gallbladder, Orthopedic, Pacemaker, Transurethral Resection Respiratory Yes Cardiovascular Yes Coronary Artery Disease, Heart Attack, Hypertension Neurological No Reproductive System Hx Reproductive Disorders: No Sexually Transmitted Disease: No HIV/AIDS: No Genitourinary Yes Prostate Problems Gastrointestinal Yes Gall Bladder Disease Musculoskeletal Yes Arthritis, Chronic Back Pain Endocrine History of Endocrine Disorders: No HEENT Loss of Vision: Denies Hearing Impairment: Denies Cancer Yes Prostate Psychosocial History of Psychiatric Problem: No Integumentary History of Skin or Integumenta: No Blood Transfusions History of Blood Disorders: No Adverse Reaction to a Blood Tr: No Family Medical History Significant Family History: Heart Disease, Hypertension Family Hx: Alzheimer's disease 19 FATHER, Onset:60 years & older Cardiovascular disease 19 FATHER, Onset:15's - 20 (Was told that he had a "Leaky Heart") FH: brain cancer 19 MOTHER, Onset:60 years & older G8 BROTHER, Onset:50's - 60 FH: lung cancer 19 MOTHER, Onset:60 years & older FH: sudden G8 BROTHER, Onset:Childhood (Was ran over by a car at the age of 6.) Physical Exam Vital Signs Vital Signs - First Documented 05/18/18 05/18/18 05/18/18 05/18/18 15:51 15:54 16:56 21:32 Temp 98.2 Pulse 71 Resp 29 B/P (MAP) 182/97 Pulse Ox 85 O2 Delivery Nasal Cannula O2 Flow Rate 2.00 FiO2 21 Capillary Refill : Less Than 3 Seconds Height, Weight, BMI Height: 5'9.00" Weight: 187lbs. 0.8oz. 84.157000au; 27.6 BMI Method:Stated Clinical Quality Measures DVT/VTE Risk/Contraindication: Risk Factor Score Per Nursin RFS Level Per Nursing on Admit: 4+=Very High Stroke: Date of last known well: May 18, 2018 BEVERLEY DUMONT MD May 19, 2018 08:31
--- NOTE | 2018-05-19 09:21 | Diagnostic Imaging Report ---
EXAMINATION: Chest radiograph, portable AP view. DATE: May 19, 2018 at 0351 hours. INDICATION: 82-year-old male, history of ischemic stroke. COMPARISON: May 18, 2018. FINDINGS: There is a left-sided cardiac assist device with leads. There are median sternotomy wires. Stable overall appearance of the cardiomediastinal silhouette. There is no identified pneumothorax. There is no large pleural effusion. There is no identified interval focal airspace consolidation. There is superior subluxation of the left humeral head compatible with a chronic full-thickness rotator cuff tendon tear. IMPRESSION: 1. Streaky opacities in the left lung base which appear improved since comparison exam. 2. No identified interval acute cardiopulmonary abnormality. Dictated by: Dictated on workstation # [id number]
--- NOTE | 2018-05-19 09:26 | Consultation-Cardiology ---
HPI-Cardiology Cardiology Consultation Date of Consultation 05/19/18 Date of Admission Time Seen by Provider: 09:19 Indication: acute CVA HPI 82 years old gentleman with history of coronary artery disease, sick sinus syndrome, permanent pacemaker. Was in his usual state of health until yesterday when he started having slurred speech, aphasia, was having word salad , brought him to the emergency room and he received TPA, significant improvement, currently sitting in bed. Did not recall having palpitation or dizziness, had mild headache. No similar episode in the past. No focal deficit. Currently doing well. Home Medications & Allergies Allergies: Coded Allergies: No Known Drug Allergies (Verified , 10/11/15) Home Medication List Reviewed: Yes [id number] Hx Patient Social History Marital Status: Employed/Student: retired Alcohol Use: Occasionally Uses Recreational Drug Use: No Smoking Status: Former Smoker Former smoker/When Quit: Apr 30, 1996 2nd Hand Smoke Exposure: No Recent Foreign Travel: No Recent Infectious Disease Expo: No Recent Hopitalizations: No Physical Abuse Screen: No Sexual Abuse: No Immunizations Up To Date Tetanus Booster (TDap): Unknown Past Medical History as described below Family Medical History Significant Family History: Heart Disease, Hypertension Family History: Alzheimer's disease 19 FATHER, Onset:60 years & older Cardiovascular disease 19 FATHER, Onset:15's - 20 (Was told that he had a "Leaky Heart") FH: brain cancer 19 MOTHER, Onset:60 years & older G8 BROTHER, Onset:50's - 60 FH: lung cancer 19 MOTHER, Onset:60 years & older FH: sudden G8 BROTHER, Onset:Childhood (Was ran over by a car at the age of 6.) Review of Systems Constitutional: no symptoms reported, see HPI EENTM: see HPI, no symptoms reported Respiratory: see HPI; No cough, No dyspnea on exertion, No hemoptysis, No orthopnea, No phlegm, No short of breath, No stridor, No wheezing, No other Cardiovascular: see HPI; No chest pain, No edema, No Hx of Intervention, No palpitations, No syncope, No vascular heart diseas, No other Gastrointestinal: no symptoms reported, see HPI Genitourinary: no symptoms reported, see HPI Musculoskeletal: no symptoms reported, see HPI Skin: no symptoms reported, see HPI Psychiatric/Neurological: No Symptoms Reported, See HPI Reviewed Test Results Reviewed Test Results Lab Laboratory Tests Test 05/18/18 15:56 05/18/18 16:06 05/18/18 16:14 05/18/18 17:50 Range/Units White Blood Count 6.2 4.3-11.0 10^3/uL Red Blood Count 4.52 4.35-5.85 10^6/uL Hemoglobin 13.4 13.3-17.7 G/DL Hematocrit 40 40-54 % Mean Corpuscular Volume 89 80-99 FL Mean Corpuscular Hemoglobin 30 25-34 PG Mean Corpuscular Hemoglobin Concent 33 32-36 G/DL Red Cell Distribution Width 14.0 10.0-14.5 % Platelet Count 195 130-400 10^3/uL Mean Platelet Volume 9.1 7.4-10.4 FL Neutrophils (%) (Auto) 59 42-75 % Lymphocytes (%) (Auto) 22 12-44 % Monocytes (%) (Auto) 14 H 0-12 % Eosinophils (%) (Auto) 5 0-10 % Basophils (%) (Auto) 0 0-10 % Neutrophils # (Auto) 3.7 1.8-7.8 X 10^3 Lymphocytes # (Auto) 1.4 1.0-4.0 X 10^3 Monocytes # (Auto) 0.9 0.0-1.0 X 10^3 Eosinophils # (Auto) 0.3 0.0-0.3 10^3/uL Basophils # (Auto) 0.0 0.0-0.1 10^3/uL Prothrombin Time 13.9 12.2-14.7 SEC INR Comment 1.1 0.8-1.4 Activated Partial Thromboplast Time 31 24-35 SEC D-Dimer 0.62 H 0.00-0.49 UG/ML Sodium Level 139 135-145 MMOL/L Potassium Level 3.8 3.6-5.0 MMOL/L Chloride Level 103 98-107 MMOL/L Carbon Dioxide Level 24 21-32 MMOL/L Anion Gap 12 5-14 MMOL/L Blood Urea Nitrogen 21 H 7-18 MG/DL Creatinine 1.13 0.60-1.30 MG/DL Estimat Glomerular Filtration Rate > 60 BUN/Creatinine Ratio 19 Glucose Level 101 70-105 MG/DL Calcium Level 9.3 8.5-10.1 MG/DL Corrected Calcium 9.1 8.5-10.1 MG/DL Total Bilirubin 0.9 0.1-1.0 MG/DL Aspartate Amino Transf (AST/SGOT) 16 5-34 U/L Alanine Aminotransferase (ALT/SGPT) 16 0-55 U/L Alkaline Phosphatase 70 40-136 U/L Troponin I < 0.30 <0.30 NG/ML Total Protein 7.0 6.4-8.2 GM/DL Albumin 4.2 3.2-4.5 GM/DL Glucometer 104 70-110 MG/DL Urine Color YELLOW Urine Clarity CLEAR Urine pH 6 5-9 Urine Specific [place] 1.020 1.016-1.022 Urine Protein 1+ H NEGATIVE Urine Glucose (UA) NEGATIVE NEGATIVE Urine Ketones NEGATIVE NEGATIVE Urine Nitrite NEGATIVE NEGATIVE Urine Bilirubin NEGATIVE NEGATIVE Urine Urobilinogen 4 H NORMAL MG/DL Urine Leukocyte Esterase 2+ H NEGATIVE Urine RBC (Auto) 1+ H NEGATIVE Urine RBC 2-5 H /HPF Urine WBC 10-25 H /HPF Urine Squamous Epithelial Cells 0-2 /HPF Urine Crystals NONE /LPF Urine Bacteria FEW H /HPF Urine Casts NONE /LPF Urine Mucus SMALL H /LPF Urine Culture Indicated YES Lactic Acid Level 1.26 0.50-2.00 MMOL/L Test 05/19/18 03:25 Range/Units White Blood Count 7.9 4.3-11.0 10^3/uL Red Blood Count 3.85 L 4.35-5.85 10^6/uL Hemoglobin 11.6 L 13.3-17.7 G/DL Hematocrit 34 L 40-54 % Mean Corpuscular Volume 89 80-99 FL Mean Corpuscular Hemoglobin 30 25-34 PG Mean Corpuscular Hemoglobin Concent 34 32-36 G/DL Red Cell Distribution Width 14.2 10.0-14.5 % Platelet Count 168 130-400 10^3/uL Mean Platelet Volume 9.8 7.4-10.4 FL Neutrophils (%) (Auto) 75 42-75 % Lymphocytes (%) (Auto) 12 12-44 % Monocytes (%) (Auto) 10 0-12 % Eosinophils (%) (Auto) 2 0-10 % Basophils (%) (Auto) 0 0-10 % Neutrophils # (Auto) 5.9 1.8-7.8 X 10^3 Lymphocytes # (Auto) 1.0 1.0-4.0 X 10^3 Monocytes # (Auto) 0.8 0.0-1.0 X 10^3 Eosinophils # (Auto) 0.2 0.0-0.3 10^3/uL Basophils # (Auto) 0.0 0.0-0.1 10^3/uL Sodium Level 138 135-145 MMOL/L Potassium Level 3.4 L 3.6-5.0 MMOL/L Chloride Level 106 98-107 MMOL/L Carbon Dioxide Level 22 21-32 MMOL/L Anion Gap 10 5-14 MMOL/L Blood Urea Nitrogen 16 7-18 MG/DL Creatinine 0.92 0.60-1.30 MG/DL Estimat Glomerular Filtration Rate > 60 BUN/Creatinine Ratio 17 Glucose Level 100 70-105 MG/DL Calcium Level 8.2 L 8.5-10.1 MG/DL Corrected Calcium 8.7 8.5-10.1 MG/DL Phosphorus Level 2.9 2.3-4.7 MG/DL Magnesium Level 1.6 L 1.8-2.4 MG/DL Total Bilirubin 1.1 H 0.1-1.0 MG/DL Aspartate Amino Transf (AST/SGOT) 13 5-34 U/L Alanine Aminotransferase (ALT/SGPT) 13 0-55 U/L Alkaline Phosphatase 57 40-136 U/L Total Protein 5.6 L 6.4-8.2 GM/DL Albumin 3.4 3.2-4.5 GM/DL Physical Exam Vital Signs Vital Signs - First Documented 05/18/18 05/18/18 05/18/18 05/18/18 15:51 15:54 16:56 21:32 Temp 98.2 Pulse 71 Resp 29 B/P (MAP) 182/97 Pulse Ox 85 O2 Delivery Nasal Cannula O2 Flow Rate 2.00 FiO2 21 Capillary Refill : Less Than 3 Seconds Height, Weight, BMI Height: 5'9.00" Weight: 187lbs. 0.8oz. [id number]; 27.6 BMI Method:Stated General Appearance: No Apparent Distress, WD/WN Eyes: Bilateral Eye Normal Inspection, Bilateral Eye PERRL, Bilateral Eye EOMI HEENT: PERRL/EOMI, TMs Normal, Normal ENT Inspection, Pharynx Normal Neck: Full Range of Motion, Normal Inspection, Non Tender, Supple, Carotid Bruit Respiratory: Chest Non Tender, Lungs Clear, Normal Breath Sounds, No Accessory Muscle Use, No Respiratory Distress Cardiovascular: Regular Rate, Rhythm, No Edema, No Gallop, No JVD, Normal Peripheral Pulses, Systolic Murmur Gastrointestinal: Normal Bowel Sounds, No Organomegaly, No Pulsatile Mass, Non Tender, Soft Back: Normal Inspection, No CVA Tenderness, No Vertebral Tenderness Extremity: Normal Capillary Refill, Normal Inspection, Normal Range of Motion, Non Tender, No Calf Tenderness, No Pedal Edema Neurologic/Psychiatric: Alert, Oriented x3, No Motor/Sensory Deficits, Normal Mood/Affect Skin: Normal Color, Warm/Dry Lymphatic: No Adenopathy A/P-Cardiology Admission Diagnosis CVA Coronary artery disease Sick sinus syndrome Hypertension Assessment/Plan Acute CVA with aphasia. Improved after receiving TPA. CT of the head with contrast did not show any infarct, CT angiogram did not show any obstructive disease. Has been on aspirin as an outpatient. Recovered at this time and receiving physical therapy. Coronary artery disease, history of CABG x4 done in 1997 using LIM to LAD, vein graft to LAD, vein graft to the first and second Obtuse marginal and vein graft to the right coronary artery. Patient underwent cardiac catheterization on November 10, [address] Orr revealing right coronary artery having a perez's hook tortuosity and severe stenosis both proximally and distally. There is 80 percent lesion in the mid RCA just distal to the second perez hook 80 percent lesion just distal to that at the takeoff of the PDA. Patient underwent 2 stent placements using 3.0 x 16 Promus Premier stent in the distal vessel, 3.0 x 20 Promus Premier stent in the mid RCA. Both were 0 percent post with GERA grade 3 following the procedure. Most recent cardiac catheterization done August 24, 2016 revealed borderline lesion in the stent in the right coronary artery and in the vein graft to the first and second obtuse marginal branch. He is intolerant to oral anticoagulation in the past. Recommend conservative management unless become significantly symptomatic. Continue to monitor Hypertension, better control at this time. Continue on current medication monitor blood pressure Hyperlipidemia, Continue to monitor Lipids Sick sinus syndrome, history of permanent pacemaker. status post generator replacement on February 15, 2016, zulily Adapta serial # [id number]. last interrogation was done in February 25, 2018 showing good sensing and capture activity, no arrhythmia was detected, I will reevaluate his pacemaker Mild bilateral carotid stenosis, nonobstructive disease, Continue to monitor History of intolerance to Plavix in the past secondary to bleed requiring cauterization of bladder History of dizziness, reporting improvement. Continue to monitor. History of near syncope, no further episodes reported. Continue to monitor. Benign prostatic hypertrophy, TURP Clinical Quality Measures DVT/VTE Risk/Contraindication: Risk Factor Score Per Nursin RFS Level Per Nursing on Admit: 4+=Very High Stroke: Date of last known well: May 18, 2018 NACHO FERRER MD May 19, 2018 09:26
--- NOTE | 2018-05-19 09:29 | Physical Therapy Evaluation ---
PT Evaluation-General Medical Diagnosis Admission Date May 18, 2018 at 18:24 Medical Diagnosis: CVA/UTI Onset Date: May 18, 2018 Therapy Diagnosis Therapy Diagnosis: debility Height/Weight Height (Feet): 5 Height (Inches): 9.00 Weight (Pounds): 187 Weight (Ounces): 0.8 Precautions Precautions/Isolations: Standard Precautions Weight Bear Status Right Lower Extremity: Right Full Weight Bearing Left Lower Extremity: Left Full Weight Bearing Referral Physician: Stephan Reason for Referral: Evaluation/Treatment Medical History Pertinent Medical History: CABG, CAD, HTN, [place] Current History ED with slurred speech Reviewed History: Yes Social History Home: Single Level Current Living Status: Spouse Prior/Core FIM Prior Level of Function Therapy Code Descriptions/Definitions Functional [place]erson Measure: 0=Not Assessed/NA 4=Minimal Assistance 1=Total Assistance 5=Supervision or Setup 2=Maximal Assistance 6=Modified Nickerson 3=Moderate Assistance 7=Complete Nickerson Therapy Quality Codes: 6 Independent with activity with or without an assistive device 5 Patient requires set up or clean up by helper. Patient completes activity by themselves 4 Supervision or touching assist (CGA). [place] provide cues , steadying assist 3 The helper provides less than half the effort to complete the activity 2 The helper provides more than half the effort to complete the activity 1 Dependent. The helper does all the effort to complete an activity 7 Patient refused to complete or attempt activity 9 The patient did not perform the activity before the current illness or injury 88 Not attempted due to Medical conditions or safety concerns Functional Abilities and Goals: Independent: Patient completed the activities by him/herself, with or without an assistive device, with no assistance from a helper. Needed Some Help: Patient needed partial assistance from another person to complete activities. Dependent: A helper completed the activities for the patient. Unknown: Not Applicable: Bed Mobility: 7 Transfers (B,C,W/C) (FIM): 7 Gait: 7 Stairs: 7 Indoor Mobility (Ambulation): Independent Stairs: Independent Prior Devices Use: None goes dancing every weekend PT Evaluation-Current Subjective Patient has no c/o and agrees to PT. Pain Numeric Pain Scale: 0-No Pain Location: No Pain Reported Objective Patient Orientation: Normal For Age Problem Solving: Good Attachments: Bowling Catheter, IV ROM/Strength ROM Lower Extremities bilateral LE WFL Strength Lower Extremities 5/5 grossly bilaterally Integumentary/Posture Integumentary refer to nursing notes Bladder Incontinence: Bowling Cath Posture WFL Neuromuscular (Tone, Coordination, Reflexes) grossly intact with all Sensory Vision: Functional Hearing: Functional Hand Dominance: Right Sensation Right Lower Extremit: Intact Sensation Left Lower Extremity: Intact Transfers Therapy Code Descriptions/Definitions Functional Nickerson Measure: 0=Not Assessed/NA 4=Minimal Assistance 1=Total Assistance 5=Supervision or Setup 2=Maximal Assistance 6=Modified Nickerson 3=Moderate Assistance 7=Complete Nickerson Transfers (B, C, W/C) (FIM): 7 Scootin Rollin Supine to/from Sit: 7 Sit to/from Stand: 7 Gait Mode of Locomotion: Walk Anticipated Mode of Locomotion: Walk Gait (FIM): 7 Distance (FIM): 3=150 ft Distance: 500' Gait Level of Assist: 7 Gait Assistive Device: None Comments/Gait Description normal gait sequence Balance Sitting Static: Normal Sitting Dynamic: Normal Standing Static: Normal Standing Dynamic: Normal Assessment/Needs 82 y.o. male, is currently at [facility] with all gross motor skills and does not require skilled therapy intervention at this time. Thank you for this referral. Rehab Potential: Good PT Plan Treatment/Plan Treatment Plan: Discontinue PT, goals met Treatment Plan: Other Treatment Duration: May 19, 2018 Frequency: 1 time per week Estimated Hrs Per Day: .5 hour per day Patient and/or Family Agrees t: Yes Discharge Recommendations Therapy D/C Recommendations: Home Independently Time/GCodes Time In: 830 Time Out: 849 Total Billed Treatment Time: 19 Total Billed Treatment 1 visit EVMod 19 min GILLIAN RIBEIRO PT May 19, 2018 09:29
--- NOTE | 2018-05-19 09:55 | ST Dysphagia Evaluation ---
Speech Evaluation-General Medical Diagnosis CVA/UTI Onset Date: May 18, 2018 Therapy Diagnosis Therapy Diagnosis: Dysphagia Precautions Precautions/Isolations: Standard Precautions Medical History Pertinent Medical History: CABG, CAD, HTN, [place] Reviewed History: Yes Social History Current Living Status: Spouse Speech PLF/Current-Dysphagia Prior Level of Function Patient lived at home with his and was independent with all daily needs. Subjective Patient was sitting up in his chair and was able to engage in conversation without difficulty. Cognitive Status Patient Orientation: Person, Place, Time, Situation Oral Motor Skills Denture Type: Full- Upper & Lower Current Food Consistancy: Clear Liquids Ability to Follow Directions: Excellent Patient was NPO until ST completed evaluation. Oral Expression Ability: No Impairment Voice Voice Phonatory-Based Quality: Normal Voice Pitch: Normal Voice Loudness: Normal Face Facial Symmetry: Symmetrical Oral-Facial Assessment Oral-Facial Dentition: Normal Labial Seal Description: Normal Puff Cheeks: Normal Lingual Protrusion: Normal Lingual ROM: Normal Lingual Strength: Normal Gag Reflex Response: Normal Pharynx Velopharyngeal Move.: Normal Volitional Dry Swallow: Yes Dysphagia Evaluation Consistencies Presented: Regular, Thin Liquid, Mechanical Soft, Pureed Patient demonstrated oral motor function within normal range for speech and oral intake. Dietary Recommendations: Regular Liquid Recommendations: Thin Swallowing Precautions: Alternate Liquids/Solids, Sitting Upright 90 Degrees, Sitting 90 Degrees 30 Post Intake Dysphagia Evaluation Summary Patient was admitted on 05/18/2018 for CVA symptoms. Patient was initially reported to have significant difficulty with speech production. Today he was sitting up in his chair with his present when I entered the room. 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 Patient was able to follow directions for dysphagia evaluation without repetitions. Patient was presented applesauce, banana and crackers with thin liquids. Patient consumed all of the trial foods without s/s of aspiration. Patient is recommended for a regular diet level with thin liquids. Barriers to Learning Patient's age and medical history. Speech Short Term Goals Short Term Goals Short Term Goals 1) Patient will demonstrate safe oral intake of least restrictive diet without s /s of aspiration at 90% or greater. 2) Patient will utilize compensatory strategies for safe oral intake with minimal cues at 90% or greater. Speech Building Performance Consultant Goals Care Home Goals Patient will maintain adequate nutrition/hydration via safe effective swallow function. Speech-Plan Patient/Family Goals Patient/Family Goals: Patient plans to return home with his post hospital. Treatment Plan Speech Therapy Treatment Plan: Continue Plan of Care Patient is expected to do very well with skilled services due to his quick recovery thus far. Treatment Duration: May 19, 2018 Frequency: 5 times per week Estimated Hrs Per Day: .5 hour per day Rehab Potential: Good Barriers to Learning: Patient's medical history. Pt/Family Agrees to Plan: Yes Safety Risks/Education Teaching Recipient: Patient, Significant Other Teaching Methods: Discussion Response to Teaching: Verbalize Understanding Education Topics Provided: Compensatory strategies for safe oral intake. Time Speech Therapy Time In: 09:00 Speech Therapy Time Out: 09:20 Total Billed Time: 20 Billed Treatment Time 1, THIENJOSEMina CARLOS MANUEL Hanson May 19, 2018 09:54
[2018-05-19] MEDS ORDERED: RANO500T3 PO (10:11)
[2018-05-19] MEDS ORDERED: GLUC-219 PO (10:11)
[2018-05-19] MEDS ORDERED: EZET10TA27 PO (10:11)
[2018-05-19] MEDS ORDERED: ASCO-262 PO (10:11)
[2018-05-19] MEDS ORDERED: ASPI-983 PO (10:11)
[2018-05-19] MEDS ORDERED: CHOL200078 PO (10:11)
[2018-05-19] MEDS: DOCUSATE SODIUM 100 MG (COLACE) CAP PO SCH (10:44)
[2018-05-19] MEDS: NS IV 1000 ML 1,000 ML IV SCH (13:56)
--- NOTE | 2018-05-19 14:41 | Occupational Therapy Eval ---
OT Evaluation-General/PLF Medical Diagnosis Admission Date May 18, 2018 at 18:24 Medical Diagnosis: CVA/UTI Onset Date: May 18, 2018 Therapy Diagnosis Therapy Diagnosis: decr self care Height/Weight Height (Feet): 5 Height (Inches): 9.00 Weight (Pounds): 187 Weight (Ounces): 0.8 Precautions Precautions/Isolations: Standard Precautions Safety Interventions: None Referral Physician: Stephan Referral Reason: Evaluation/Treatment Medical History Pertinent Medical History: Arthritis, CABG, CAD, HTN, [place] Additional Medical History Pacemaker. Asthma. Prostate problems, prostate CA. TURP. Chronic back pain. Current History Pt admitted with speech abnormality, word salad. R sided weakness and neglect. Received TPA in ED. Cerebral artery occlusion and UTI. Reviewed History: Yes Social History Home: Single Level Current Living Status: Spouse ADL-Prior Level of Function Therapy Code Descriptions/Definitions Functional [place] Measure: 0=Not Assessed/NA 4=Minimal Assistance 1=Total Assistance 5=Supervision or Setup 2=Maximal Assistance 6=Modified [place] 3=Moderate Assistance 7=Complete [place] Therapy Quality Codes: 6 Independent with activity with or without an assistive device 5 Patient requires set up or clean up by helper. Patient completes activity by themselves 4 Supervision or touching assist (CGA). [place] provide cues , steadying assist 3 The helper provides less than half the effort to complete the activity 2 The helper provides more than half the effort to complete the activity 1 Dependent. The helper does all the effort to complete an activity 7 Patient refused to complete or attempt activity 9 The patient did not perform the activity before the current illness or injury 88 Not attempted due to Medical conditions or safety concerns Functional Abilities and Goals: Independent: Patient completed the activities by him/herself, with or without an assistive device, with no assistance from a helper. Needed Some Help: Patient needed partial assistance from another person to complete activities. Dependent: A helper completed the activities for the patient. 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 Self Care: Independent Functional Cognition: Independent OT Current Status Subjective Pt seen in room, up in bed, agreeable to OT. No pain mentioned. Appearance Alert, cooperative Mental Status/Objective Patient Orientation: Person, Place, Time, Situation Attachments: Central Line, IV, Telemetry Current Glasses/Contacts: Yes Dentures/Partials: Yes Hand Dominance: Right Upper Extremity ROM Grossly WFL bilat (pt reported that he has old shoulder injuries and can bring his arms up over head while he is in bed but not while sitting upright.) Able to hold L sh flex but needed assist to get into position. Old injuries Upper Extremity Strength Grossly 5/5 except L shoulder 3-/5 flex and R shoulder 4/5 flex ADL-Treatment ADL-Current Pt has been able to feed himself without difficulty. Bowling just removed so hasn' t toileted. Walked 500 feet with PT this morning without AD and now on regular diet, per speech therapy. Pt sat up on EOB without help and was provided with supplies to give himself a sponge bath and change hospital gown ( available to set it up). No skilled OT needs identified Therapy Code Descriptions/Definitions Functional [place] Measure: 0=Not Assessed/NA 4=Minimal Assistance 1=Total Assistance 5=Supervision or Setup 2=Maximal Assistance 6=Modified [place] 3=Moderate Assistance 7=Complete [place] Therapy Quality Codes: 6 Independent with activity with or without an assistive device 5 Patient requires set up or clean up by helper. Patient completes activity by themselves 4 Supervision or touching assist (CGA). [place] provide cues , steadying assist 3 The helper provides less than half the effort to complete the activity 2 The helper provides more than half the effort to complete the activity 1 Dependent. The helper does all the effort to complete an activity 7 Patient refused to complete or attempt activity 9 The patient did not perform the activity before the current illness or injury 88 Not attempted due to Medical conditions or safety concerns Education OT Patient Education: Purpose of tx/functional activities, Rehab process Teaching Recipient: Patient, Family Teaching Methods: Discussion Response to Teaching: Verbalize Understanding, Return Demonstration OT Education/Plan Problem List/Assessment Assessment: No Skilled OT Needs ID'd Pt is independent with mobility, on regular diet, able to feed himself. No UE weakness from CVA. No skilled OT needs identified Discharge Recommendations Plan/Recommendations: Discontinue OT Therapy D/C Recommendations: Home w/ Family Support Treatment Plan/Plan of Care Treatment,Training & Education: No Patient would benefit from OT for education, treatment and training to promote independence in ADL's, mobility, safety and/or upper extremity function for ADL' s. Treatment Duration: May 19, 2018 Frequency: 1 time per week Estimated Hrs Per Day: Other (DC) Rehab Potential: Good Time/GCodes Start Time: 13:40 Stop Time: 14:00 Total Time Billed (hr/min): 20 Billed Treatment Time visit, 20 minutes evaluation low intensity KALYAN FISHER OT May 19, 2018 14:41
[2018-05-19] MEDS ORDERED: cefTRIAXone 1 GM/NS 50 ML IVPB IV SCH ×2 (18:00)
--- NOTE | 2018-05-19 18:05 | Diagnostic Imaging Report ---
PROCEDURE: CT head without contrast. TECHNIQUE: Multiple contiguous axial images were obtained through the brain without the use of intravenous contrast. INDICATION: Initial presentation with slurred speech, confusion, post TPA. CORRELATION STUDY: 05/18/2018. FINDINGS: There is a generally stable appearance about the CT head examination. The ventricles and sulci appear age appropriate. Scattered areas of decreased attenuation, while nonspecific, favor likely changes of small vessel ischemic disease. No definitive evidence for acute intracranial hemorrhage. No midline shift or mass effect. Some attenuation streak artifact at the skull base. Basilar cisterns are maintained. No hyperdense MCA sign. Some intracranial vascular calcification is suggested. Bony calvarium is intact. Paranasal sinuses and mastoid air cells are clear. IMPRESSION: Stable noncontrast CT imaging of the head demonstrates no acute intracranial abnormality. Dictated by: Dictated on workstation # [id number]
[2018-05-19] MEDS ORDERED: ASPIRIN 81 MG CHEW (CHILDREN'S ASA) PO SCH (20:00)
[2018-05-19] MEDS ORDERED: NON-FORMULARY MEDICATION 1 EA EA (Ranolazine (Ranexa) 500 MG) PO SCH (21:00)
[2018-05-19] MEDS ORDERED: ATORVASTATIN 80 MG (LIPITOR) TABLET PO SCH (21:00)
[2018-05-19] MEDS: meTOprolol TARTRATE 50 MG (LOPRESSOR) TAB PO SCH (21:05)
[2018-05-19] MEDS: RANOLAZINE ER 500 MG TAB (RANEXA) PO SCH (21:05)
[2018-05-20 00:20] VITALS: BP 164/81
[2018-05-20 04:21] VITALS: BP 168/74
[2018-05-20 05:08] LABS: BASOPHILS % (AUTO) 0 % (0-10); EOSINOPHILS # (AUTO) 0.4 10^3/uL (0.0-0.3); EOSINOPHILS % (AUTO) 6 % (0-10); HEMATOCRIT 36 % (40-54); HEMOGLOBIN 11.9 G/DL (13.3-17.7); LYMPHOCYTES # (AUTO) 0.9 X 10^3 (1.0-4.0); LYMPHOCYTES % (AUTO) 14 % (12-44); MEAN CORPUSCULAR HEMOGLOBIN 30 PG (25-34); MEAN CORPUSCULAR HGB CONC 33 G/DL (32-36); MEAN CORPUSCULAR VOLUME 90 FL (80-99); MEAN PLATELET VOLUME 9.8 FL (7.4-10.4); MONOCYTES % (AUTO) 15 % (0-12); NEUTROPHILS # (AUTO) 4.1 X 10^3 (1.8-7.8); NEUTROPHILS % (AUTO) 64 % (42-75); PLATELET COUNT 160 10^3/uL (130-400); RED BLOOD COUNT 4.01 10^6/uL (4.35-5.85); RED CELL DISTRIBUTION WIDTH 14.2 % (10.0-14.5); WHITE BLOOD COUNT 6.4 10^3/uL (4.3-11.0)
[2018-05-20 05:21] LABS: BUN/CREATININE RATIO 13; CALCIUM 8.5 MG/DL (8.5-10.1); CARBON DIOXIDE 22 MMOL/L (21-32); CHLORIDE 108 MMOL/L (98-107); CREATININE SERUM 0.91 MG/DL (0.60-1.30); GFR ESTIMATED > 60; GLUCOSE 96 MG/DL (70-105); MAGNESIUM 1.8 MG/DL (1.8-2.4); PHOSPHORUS 2.7 MG/DL (2.3-4.7); POTASSIUM 3.6 MMOL/L (3.6-5.0); SODIUM 140 MMOL/L (135-145)
--- NOTE | 2018-05-20 07:58 | Cardiology Progress Note ---
Subjective Date Seen by Provider: May 20, 2018 Time Seen by Provider: 07:57 Subjective/Events-last exam patient is laying down in bed, feeling better. Review of Systems General: No Chills, No Night Sweats, No Fatigue, No Malaise, No Appetite, No Other HEENT: No Head Aches, No Visual Changes, No Eye Pain, No Ear Pain, No Dysphasia , No Sinus Congestion, No Post Nasal Drip, No Sore Throat, No Other Pulmonary: No Dyspnea, No Cough, No Pleuritic Chest Pain, No Other Cardiovascular: No: Chest Pain, Palpitations, Orthopnea, Paroxysmal Noc. Dyspnea, Edema, Lt Headedness, Other Focused Exam Lactate Level 05/18/18 17:50: Lactic Acid Level 1.26 Objective-Cardiology Exam Last Set of Vital Signs Vital Signs 05/18/18 05/18/18 05/20/18 15:54 21:32 04:21 Temp 98.9 Pulse 59 Resp 16 B/P (MAP) 168/74 (105) Pulse Ox 94 O2 Delivery Room Air O2 Flow Rate 2.00 FiO2 21 Capillary Refill : Less Than 3 Seconds I&O Intake and Output 05/20/18 00:00 Intake Total 1780 ml Output Total 1100 ml Balance 680 ml Intake Oral 1480 ml IV Total 300 ml Output Urine Total 1100 ml # Voids 3 General: Alert, Oriented X3, Cooperative HEENT: Atraumatic, PERRLA Neck: Supple, No JVD, No Thyromegaly Lungs: Clear to Auscultation, Normal Air Movement Heart: Regular Rate, Normal S1, Normal S2, No Murmurs Abdomen: Normal Bowel Sounds, Soft, No Tenderness, No Hepatosplenomegaly, No Masses Extremities: No Clubbing, No Cyanosis, No Edema, Normal Pulses, No Tenderness/ Swelling Skin: No Rashes, No Breakdown, No Significant Lesion Neuro: Normal Gait, Normal Speech, Strength at 5/5 X4 Ext, Normal Tone, Sensation Intact Psych/Mental Status: Mental Status NL, Mood NL Results Lab Laboratory Tests 05/20/18 04:55 A/P-Cardiology Admission Diagnosis CVA Coronary artery disease Sick sinus syndrome Hypertension Assessment/Plan Acute CVA with aphasia. Improved after receiving TPA. CT of the head with contrast did not show any infarct, CT angiogram did not show any obstructive disease. Has been on aspirin as an outpatient. Recovered at this time and receiving physical therapy. Coronary artery disease, history of CABG x4 done in 1997 using LIM to LAD, vein graft to LAD, vein graft to the first and second Obtuse marginal and vein graft to the right coronary artery. Patient underwent cardiac catheterization on November 10, [address] Orr revealing right coronary artery having a perez's hook tortuosity and severe stenosis both proximally and distally. There is 80 percent lesion in the mid RCA just distal to the second perez hook 80 percent lesion just distal to that at the takeoff of the PDA. Patient underwent 2 stent placements using 3.0 x 16 Promus Premier stent in the distal vessel, 3.0 x 20 Promus Premier stent in the mid RCA. Both were 0 percent post with GERA grade 3 following the procedure. Most recent cardiac catheterization done August 24, 2016 revealed borderline lesion in the stent in the right coronary artery and in the vein graft to the first and second obtuse marginal branch. He is intolerant to oral anticoagulation in the past. Recommend conservative management unless become significantly symptomatic. Continue to monitor Hypertension, better control at this time. Continue on current medication monitor blood pressure Hyperlipidemia, I will evaluate lipid profile today Sick sinus syndrome, history of permanent pacemaker. status post generator replacement on February 15, 2016, Med[employer]onic Adapta serial # [id number]. last interrogation was done in February 25, 2018 showing good sensing and capture activity, no arrhythmia was detected, pacemaker was interrogated yesterday, good sensing and capture activity, no arrhythmia was detected Mild bilateral carotid stenosis, nonobstructive disease, Continue to monitor History of intolerance to Plavix in the past secondary to bleed requiring cauterization of bladder History of dizziness, reporting improvement. Continue to monitor. History of near syncope, no further episodes reported. Continue to monitor. Benign prostatic hypertrophy, TURP Clinical Quality Measures DVT/VTE Risk/Contraindication: Risk Factor Score Per Nursin RFS Level Per Nursing on Admit: 4+=Very High Stroke: Date of last known well: May 18, 2018 NACHO FERRER MD May 20, 2018 07:58
[2018-05-20 08:00] VITALS: BP 167/84
[2018-05-20 08:19] LABS: CHOLESTEROL 140 MG/DL (< 200); HDL CHOLESTEROL 42 MG/DL (40-60); TRIGLYCERIDES 84 MG/DL (<150); VLDL CHOLESTEROL 17 MG/DL (5-40)
[2018-05-20] MEDS ORDERED: LOSARTAN 50 MG (COZAAR) TAB PO SCH (09:00)
[2018-05-20] MEDS ORDERED: eZETimibe 10 MG (ZETIA) TABLET PO SCH (09:00)
--- NOTE | 2018-05-20 09:04 | Diagnostic Imaging Report ---
INDICATION: Stroke, followup. TECHNIQUE: Single view chest 3:26 AM. CORRELATION STUDY: 05/19/2018 FINDINGS: Post sternotomy and coronary artery bypass changes. Left-sided pacemaker stable. Unchanged cardiac enlargement. Some pulmonary vascular congestion is present but overall appears less severe from prior. There is what appears to be likely chronic change about the lung parenchyma. Definitive of infiltrate on followup is not suggested. IMPRESSION: 1. Cardiac enlargement with mildly prominent vascular suggesting mild fluid overload. Dictated by: Dictated on workstation # [id number]
[2018-05-20] MEDS: DOCUSATE SODIUM 100 MG (COLACE) CAP PO SCH (09:17)
[2018-05-20] MEDS: RANOLAZINE ER 500 MG TAB (RANEXA) PO SCH (09:18)
[2018-05-20] MEDS: meTOprolol TARTRATE 50 MG (LOPRESSOR) TAB PO SCH (09:18)
--- NOTE | 2018-05-20 10:26 | Discharge Summary ---
Diagnosis/Chief Complaint Date of Admission May 18, 2018 at 18:24 Date of Discharge Discharge Summary Discharge Physical Examination Allergies: Coded Allergies: No Known Drug Allergies (Verified , 10/11/15) Vitals & I&Os Vital Signs Date Time Temp Pulse Resp B/P (MAP) Pulse Ox O2 Delivery O2 Flow Rate FiO2 05/20/18 08:24 96 Room Air 05/20/18 08:00 97.2 75 16 167/84 (111) 05/18/18 21:32 21 05/18/18 15:54 2.00 General Appearance: Alert, Oriented X3, Cooperative HEENT: Atraumatic, PERRLA Respiratory: Clear to Auscultation, Normal Air Movement Cardiovascular: Regular Rate, Normal S1, Normal S2, No Murmurs Abdominal: Normal Bowel Sounds, Soft, No Tenderness, No Hepatosplenomegaly, No Masses Extremities: No Clubbing, No Cyanosis, No Edema, Normal Pulses, No Tenderness/ Swelling Skin: No Rashes, No Breakdown, No Significant Lesion Neuro: Normal Gait, Normal Speech, Strength at 5/5 X4 Ext, Normal Tone, Sensation Intact Psych/Mental Status: Mental Status NL, Mood NL Hospital Course Pending Labs Laboratory Tests 05/20/18 04:55: White Blood Count 6.4, Red Blood Count 4.01, Hemoglobin 11.9, Hematocrit 36, Mean Corpuscular Volume 90, Mean Corpuscular Hemoglobin 30, Mean Corpuscular Hemoglobin Concent 33, Red Cell Distribution Width 14.2, Platelet Count 160, Mean Platelet Volume 9.8, Neutrophils (%) (Auto) 64, Lymphocytes (%) (Auto) 14, Monocytes (%) (Auto) 15, Eosinophils (%) (Auto) 6, Basophils (%) (Auto) 0, Neutrophils # (Auto) 4.1, Lymphocytes # (Auto) 0.9, Monocytes # (Auto) 1.0, Eosinophils # (Auto) 0.4, Basophils # (Auto) 0.0, Sodium Level 140, Potassium Level 3.6, Chloride Level 108, Carbon Dioxide Level 22, Anion Gap 10, Blood Urea Nitrogen 12, Creatinine 0.91, Estimat Glomerular Filtration Rate > 60, BUN/ Creatinine Ratio 13, Glucose Level 96, Calcium Level 8.5, Phosphorus Level 2.7, Magnesium Level 1.8, Triglycerides Level 84, Cholesterol Level 140, LDL Cholesterol Direct 94, VLDL Cholesterol 17, HDL Cholesterol 42 Discharge Instructions to patient/family Please see electronic discharge instructions given to patient. Discharge Medications Reviewed and agree with Discharge Medication list on patient's Discharge Instruction sheet Clinical Quality Measures DVT/VTE Risk/Contraindication: Risk Factor Score Per Nursin RFS Level Per Nursing on Admit: 4+=Very High Stroke: Date of last known well: May 18, 2018 BEVERLEY YOUNGER MD May 20, 2018 10:26
[2018-05-20] MEDS ORDERED: CLOPIDOGREL 75 MG (PLAVIX) TABLET PO NR (10:29)
[2018-05-20] MEDS ORDERED: CLOP75TA69 PO (10:31)
[2018-05-20] MEDS ORDERED: LOSA50TA7 PO (10:31)
[2018-05-20] MEDS ORDERED: CEPH-507 PO (10:34)
--- NOTE | 2018-05-20 10:36 | Discharge Inst-Complex ---
PDI Med Rec & Follow Up Appt. New Medications: Cephalexin (Keflex) 500 Mg Capsule 500 MG PO TID, #11 CAP Clopidogrel Bisulfate (Plavix) 75 Mg Tablet 75 MG PO DAILY, #30 TAB 11 Refills Losartan Potassium (Losartan Potassium) 50 Mg Tablet 50 MG PO DAILY, #30 TAB 6 Refills CHECK BLOOD PRESSURE PRIOR TO TAKING THIS MEDICATION - IF BP IS LESS THAN 120 DO NOT TAKE THIS MED Continued Medications: Ascorbate Calcium (Vitamin C) 500 Mg Tablet 500 MG PO DAILY, TAB Aspirin (Aspirin EC) 81 Mg Tablet.dr 81 MG PO DAILY, TAB Cholecalciferol (Vitamin D3) (Vitamin D3) 2,000 Unit Tab.chew 2000 UNIT PO DAILY, TAB Ezetimibe (Ezetimibe) 10 Mg Tablet 10 MG PO DAILY, TAB Glucosamine/D3/Boswellia Annalise (Osteo Bi-Flex Tablet) 1 Each Tablet 1 TAB PO BID, TAB Metoprolol Tartrate (Metoprolol Tartrate) 50 Mg Tablet 50 MG PO BID, TAB Naproxen Na-Diphenhydramin HCl (Aleve Pm Caplet) 1 Each Tablet 1 TAB PO HS, TAB Ranolazine (Ranexa) 500 Mg Tab.er.12h 500 MG PO BID, TAB Ubidecarenone (Co Q10) 200 Mg Capsule 200 MG PO DAILY, CAP Discontinued Medications: Naproxen Sodium (Aleve) 220 Mg Tablet 220 MG PO Q8H PRN for PAIN-MILD, TAB Prescription: Transmitted to Pharmacy Patient Instructions: NO HEAVY LIFTING (OVER 25 POUNDS) X 5 DAYS THEN RESUME USUAL ACTIVITY Activity, Diet and PDI Resume Normal Activity: Yes (SEE ABOVE) Discharge Diet: Low Fat/Low Cholesterol Diet for 24 Hours: No Alcohol (X 2 DAYS) Diet After 24 Hours: Clear Liquid if Nauseous Drink 6-8 Glasses of Fluid/Day: Yes Driving Instructions: No Driving for 24 Hours Return to The Hospital For: ANY CONCERN FOR LIFETHREATENING ILLNESS OR INJURY OR RECURRENT SYMPTOMS OF STROKE Symptoms to Reoprt to : Appetite Changes, Bleeding Excessive, Urine Color Change, Fever Over 101 Degrees F, Pain/Pressure in Chest, Urination Difficulty, Cough Up/Vomit Blood For Problems or Questions: Contact Your Physician, Go to Emergency Room BEVERLEY YOUNGER MD May 20, 2018 10:36
[2018-05-20 12:00] VITALS: BP 165/72
== END 2018-05-20 12:00 | disposition home or self-care (01) | DRG 62 ==
LOC: EDUNIT# 15:51 → ER 15:53 → ICU 18:24 → 4TH 05-19 18:50
PROVIDERS: ADMIT Internal Medicine; ATTEND Family Medicine
DX: I63.50 Cerebral infarction due to unspecified occlusion or stenosis of unspecified cerebral artery (principal); G81.91 Hemiplegia, unspecified affecting right dominant side; R47.01 Aphasia; R47.81 Slurred speech; N30.00 Acute cystitis without hematuria; I25.10 Atherosclerotic heart disease of native coronary artery without angina pectoris; T82.855A Stenosis of coronary artery stent, initial encounter; I25.810 Atherosclerosis of coronary artery bypass graft(s) without angina pectoris; R29.709 NIHSS score 9; I10 Essential (primary) hypertension; J45.909 Unspecified asthma, uncomplicated; I49.5 Sick sinus syndrome; M54.9 Dorsalgia, unspecified; M19.91 Primary osteoarthritis, unspecified site; E83.42 Hypomagnesemia; E87.6 Hypokalemia; I25.2 Old myocardial infarction; Z95.1 Presence of aortocoronary bypass graft; Z95.5 Presence of coronary angioplasty implant and graft; Z87.891 Personal history of nicotine dependence; Z95.0 Presence of cardiac pacemaker; Z85.46 Personal history of malignant neoplasm of prostate
CPT/HCPCS: 0042T; 36415; 70450; 70496; 70498; 71045; 80048; 80053; 80061; 81000; 82962; 83605; 83735; 84100; 84484; 85025; 85379; 85610; 85730; 87040; 87088; 92977; 93005; 93041; 93306; 94664; 94760; 96361; 96365; 96375; 99291

== ENCOUNTER 2018-10-04 17:24 | Observation (INO) | payer MEDICARE ==
[~2018-10-04] VITALS: Ht 180.3 cm; Wt 80.5 kg
[2018-10-04] VITALS (9 sets, daily range): BP systolic 125–154; BP diastolic 73–101
[~2018-10-04 17:24] MED LIST changes: -ALTEPLASE 100 MG/VIAL (ACTIVASE) IV NR; +ASCO-262 PO; +ASPI-983 PO; +CEPH-507 PO; +CHOL200078 PO; +CLOP75TA69 PO; +EZET10TA27 PO; +GLUC-219 PO; +LOSA50TA63 PO; -ROSU10TA PO; +ROSU10TA22 PO
--- NOTE | 2018-10-04 17:25 | NUR ---
Patient arrival to the department at 1725 Dr. Tobias at the bedside assessing the patient at [address] at 1731
--- OUTSIDE RECORDS SUMMARY | 2018-10-04 17:30 | XMS REPORT | Encounter Summary ---
Author Author [facility] Organization [facility] Address Unknown Phone Unavailable Care Team Providers Care Fitting Room Inspector Name Role Phone Susannah Dumont MD PCP Encounter Details Care Team Description Date Type Department RidingerTaylor Memory loss; Cerebrovascular accident (CVA), unspecified mechanism (HCC); Hyperglycemia 09/08/2018 Orders Only [facility] [address] [place] [address] Social History Date Tobacco Use Types Packs/Day Years Used Former Smoker Cigarettes Smokeless Tobacco: Never Used Alcohol Use Drinks/Week oz/Week Comments Never Alcohol Habits Answer Date Recorded How often do you have a drink containing alcohol? Never 08/28/2018 How many drinks containing alcohol do you have on Not asked a typical day when you are drinking? How often do you have six or more drinks on one Not asked occasion? Sex Assigned at Date Recorded Not on file Industry Job Start Date Occupation Not on file Not on file Not on file Travel End Travel History Travel Start No recent travel history available. documented as of this encounter Progress Notes * Mulu Sanchez LPN - 09/08/2018 1:08 PM CDT Spoke with pts daughter regarding lab results. They would like labs faxed to Dr. Dumont's office for review and B12 injections. Lab work and Dr. Bunn's recommendation faxed. documented in this encounter Plan of Treatment Not on filedocumented as of this encounter Procedures Comments Procedure Name Priority Date/Time Associated Diagnosis TSH WITH FREE T4 REFLEX Routine 08/29/2018 Memory loss HEMOGLOBIN A1C Routine 08/29/2018 Hyperglycemia Cerebrovascular accident (CVA), unspecified mechanism (HCC) VITAMIN B12 Routine 08/29/2018 Memory loss LIPID PROFILE Routine 08/29/2018 Cerebrovascular accident (CVA), unspecified mechanism (HCC) documented in this encounter Results * HEMOGLOBIN A1C (08/29/2018) Hemoglobin A1C 5.7 [facility] Specimen Blood - Blood Narrative Performed At Performing Organization Address City/[facility] [address] [place] [address] 10A * LIPID PROFILE (08/29/2018) Cholesterol 166 [facility] Triglycerides 130 [facility] HDL 46.0 [facility] LDL 94 [facility] VLDL [facility] Non HDL [facility] Cholesterol Cholesterol/HDL 3.6 [facility] Ratio Specimen Blood - Blood Narrative Performed At Performing Organization Address City/[facility] Phone [facility] [address] [place] [address] * VITAMIN B12 (08/29/2018) Specimen Blood Narrative Performed At Performing Organization Address [facility] Phone Number [facility] [address] [place] [address] [phone] * TSH WITH FREE T4 REFLEX (08/29/2018) Specimen Blood Narrative Performed At Performing Organization Address [facility] Phone Number [facility] [address] [place] [address] 10A documented in this encounter Visit Diagnoses Diagnosis Memory loss Cerebrovascular accident (CVA), unspecified mechanism (HCC) Hyperglycemia Other abnormal glucose documented in this encounter
--- OUTSIDE RECORDS SUMMARY | 2018-10-04 17:30 | XMS REPORT | Encounter Summary ---
Author Author [facility] Organization [facility] Address Unknown Phone Unavailable Care Team Providers Care Weld Lay Out Worker Name Role Phone Susannah Dumont MD PCP Reason for Visit * Reason Comments Results Encounter Details Care Team Description Date Type Department Theron Reyes MD [address] [place] [address] Results 09/11/2018 Telephone [facility] [address] [place] [address] Social History Date Tobacco Use [...] history available. documented as of this encounter Miscellaneous Notes * Telephone Encounter - Mulu Sanchez LPN - 09/11/2018 1:13 PM CDT Spoke with pts daughter regarding lab results. They would like labs faxed to Dr. Dumont's office for review and B12 injections. Lab work and Dr. Bunn's recommendation faxed. F: [phone] * Telephone Encounter - Mulu Sanchez LPN - 09/11/2018 1:13 PM CDT ----- Message from Theron Roque MD sent at 09/10/2018 3:02 PM CDT ----- Please contact patient about these results. HbA1c was slightly high (5.7), lipid panel and TSH were normal, but B12 level was significantly low (85). I think patient should receive IM B12 shots every week x 4, then monthly x 6. He can discuss about B12 treatment (and slightly high HbA1c level) with his PCP. If patient is not able to schedule appointments for B12 injections with PCP, we may provide this in our clinic. Thanks Theron documented in this encounter Plan of Treatment Not on filedocumented as of this encounter Visit Diagnoses Not on filedocumented in this encounter
--- OUTSIDE RECORDS SUMMARY | 2018-10-04 17:30 | XMS REPORT | Encounter Summary ---
Author Author [facility] Organization [facility] Address Unknown Phone Unavailable Care Team Providers Care Electric Blanket Wirer Name Role Phone Susannah Dumont MD PCP Reason for Visit * Reason Comments New Patient Stroke 05/18/18 * Consult, Test & Treat (Routine) Referred By Contact Referred To Contact Status Reason Specialty Diagnoses / Procedures Susannah Dumont MD [address] [place] [address] [place] [address] [place] [id number] No Auth Needed Neurology Diagnoses Stroke P rocedures Consult Encounter Details Care Team Description [place] [address] [place] [id number] Cerebrovascular accident (CVA), unspecified mechanism (HCC) (Primary Dx); Memory loss; Hyperglycemia 08/28/2018 Office Visit The [address] [address] Social History Date Tobacco Use Types [...] history available. documented as of this encounter Last Filed Vital Signs Time Taken Vital Sign Reading 08/28/2018 2:32 PM CDT Blood Pressure 139/76 08/28/2018 2:32 PM CDT Pulse 66 - Temperature - - Respiratory Rate - - Oxygen Saturation - - Inhaled Oxygen - Concentration 08/28/2018 2:32 PM CDT Weight 82.7 kg (182 lb 6.4 oz) - Height - - Body Mass Index - documented in this encounter Patient Instructions * Patient Instructions* Theron Reyes MD - 08/28/2018 2:30 PM CDT - We will order labs today. - Keep taking similar medications for stroke prevention and monitor memory problems. STROKE What is a stroke?Stroke is the term doctors use when a part of the brain is damaged because of a problem with blood flow. Strokes can happen when: ?An artery going to the brain gets clogged or closes off, and part of the brain goes without blood for too long ?An artery breaks open and starts bleeding into or around the brain How do strokes affect people?The effects of a stroke depend on a lot of things, including: ?Which part and how much of the brain is affected ?How quickly the stroke is treated Some people who have a stroke have no lasting effects. Others lose important brain functions. For example, some people become partly paralyzed or unable to speak. Stroke is one of the leading causes of and disability in the world. How can you tell if someone is having a stroke?There is an easy way to remember the signs of a stroke. Just think of the word "FAST". Each letter in the word stands for one of the things you should watch for: ?Face Does the person's face look uneven or droop on one side? ?Arm Does the person have weakness or numbness in one or both arms? Does one arm drift down if the person tries to hold both arms out? ?Speech Is the person having trouble speaking? Does his or her speech sound strange? ?Time If you notice any of these stroke signs, call for an ambulance (in the [place] and [place], dial [id number]). You need to act FAST. The sooner treatment begins, the better the chances of recovery. How are strokes treated?The right treatment depends on what kind of stroke you are having. You need to get to the hospital very quickly to figure this out. People whose strokes are caused by clogged arteries can: ?Get treatments that help reopen clogged arteries. These treatments can help you recover from the stroke. ?Get medicines that prevent new blood clots. These medicines also help prevent future strokes. People whose strokes are caused by bleeding can: ?Have treatments that might reduce the damage caused by bleeding in or around the brain ?Stop taking medicines that increase bleeding, or take a lower dose ?Have surgery to repair the artery or stop the bleeding (this is not always possible to do) Can strokes be prevented?Many strokes can be prevented, though not all. You can greatly lower your chance of having a stroke by: ?Taking your medicines exactly as directed. Medicines that are especially important in preventing strokes include: Blood pressure medicines Medicines called statins, which lower cholesterol Medicines to prevent blood clots, such aspirin or blood thinners Medicines that help to keep your blood sugar as close to normal as possible ( if you have diabetes) ?Making lifestyle changes: Stop smoking, if you smoke Get regular exercise (if your doctor says it's safe) for at least 30 minutes a day on most days of the week Lose weight, if you are overweight Eat a diet rich in fruits, vegetables, and low-fat dairy products, and low in meats, sweets, and refined grains (such as white bread or white rice) Eat less salt (sodium) Limit the amount of alcohol you drink -If you are a woman, do not drink more than 1 drink a day -If you are a man, do not drink more than 2 drinks a day Another way to prevent strokes is to have surgery to reopen clogged arteries in the neck. This surgery is appropriate for only a small group of people. What is a "TIA"?A TIA is like a stroke, but it does not damage the brain. TIAs happen when an artery in the brain gets clogged or closes off and then reopens on its own. This can happen if a blood clot forms and then moves away or dissolves. TIA stands for "transient ischemic attack." Even though TIAs do not cause lasting symptoms, they are serious. If you have a TIA, you are at high risk of having a stroke. It's important that you see a doctor and take steps to prevent that from happening. Do not ignore the symptoms of a stroke even if they go away! Follow up with primary care provider during the next weeks. RIMA Hardwick, may be contacted at [phone] for any change in symptoms or medication issues. It may take 24-48 hours for return call. If the issue is more urgent or emergent, then please call 911 or seek care in ED. You may also call the front end application developer at [phone] for scheduling. You may also use [employer] for NON-emergent communication such as refill/ medication questions, updates on how medications are working, etc. These emails are not reviewed after hours or over the weekend/holidays. For refills on medications, please have your pharmacy fax a refill authorization request form to our office. Please allow at least at least 2-3 business days for refill requests. Please note that on Saturday afternoons, staff is often out early, so please try to contact the office prior to 11AM with any requests or questions, otherwise they may not get answered until the following operating business day. Please take into account holiday weekends. If you have had imaging or labs ordered today, you should hear from the office by phone or [facility]akushart with results whether there is something abnormal or not. If you do not hear from us within one week of a lab or imaging study being completed, please call the office to be sure that we have received the results. This is especially challenging when tests are done outside of the system. FOR APPOINTMENT SCHEDULING/RESCHEDULING: Radiology department - [phone]. EEG lab & Epilepsy clinic - [phone] or [phone]. Neuropsychology clinic - [phone]. Neuromuscular clinic - [phone] or [phone]. Sleep clinic - [phone]. documented in this encounter Progress Notes * Theron Reyes MD - 08/28/2018 2:30 PM CDT Date of Service: 08/28/2018 Subjective: Angela Haile is a 83 y.o. male referred to our clinic due to stroke. History of Present IllnessMucharanjit Haile is a 83 y.o. male with past medical history of CAD s/p CABG, sick sinus syndrome s/p pacemaker, hyperlipidemia and HTN, referred to our clinic due stroke. Patient reports sudden onset speech changes when he had a stroke last May 2018. Family noticed he was having "word salad" and he was not making sense. He was not confused and did not pass out but he lost memory of the event for 13 hours. His speech was abnormal for several hours and then resolved. Patient denies weakness, numbness, tingling, dizziness or facial droop and he was able to walk during event. BP was 182/97. He was given IV TPA in the ED and symptoms resolved within a few hours. Workup at that time included CTH and did not show acute abnormalities. Patient was hospitalized for a few days and was discharged home. His writing has been affected but he denies problems reading. He also reports slightly worse blurred vision since then. His balance has been normal and denies recent falls or headaches. However, patient denies significant memory issues in the past, but reports more issues in the past few months after stroke. He is forgetful occasionally when trying to remember names of people, family helps with appointments and medications. Family has been supervising financials. Overall short term memory seems more affected with his symptoms. Patient is normally able to recognize family and close friends. He does not need help with ADLs, he is able to walk without assistance. Denies clear episodes of disorientation in the past and he has been driving without problems. Patient has been taking Zetia (he had problems/pain with statins) and antiplatelets (AAS/Plavix). Patient denies other new neurological symptoms. Review of records: CT head (05/27) with no acute abnormalities. CTA head/neck (05/27) with no occlusions or significant stenosis. TTE (05/27): no shunts/clots but left atrial enlargement. Labs (2018) slightly high LDL (94). I spent more than 31 minutes reviewing outside records, including labs/studies, brain/neck imaging and PCP and neurology records (Dr. Dumont, [facility]). Review of Systems Constitutional: Negative. HENT: Negative. Eyes: Negative. Respiratory: Negative. Cardiovascular: Negative. Gastrointestinal: Negative. Endocrine: Negative. Genitourinary: Negative. Musculoskeletal: Negative. Skin: Negative. Allergic/Immunologic: Negative. Neurological: Positive for speech difficulty. Hematological: Negative. Psychiatric/Behavioral: Negative. Twelve-point review of systems was done in detail. The patient denies any recent fever, chills, or infections. Patient denies any recent mood changes or history of depression or anxiety. The patient denies history of snoring but reports occasional drowsiness during the daytime. The patient reported that sleep has been abnormal with insomnia in the past. Denies history of prior strokes or cardiac arrhythmias but reports prior CAD. No past medical history on file. Patient denies head trauma or accidents in the past. No past surgical history on file. Social History Socioeconomic History Marital status: Spouse name: Not on file Number of children: Not on file Years of education: Not on file Highest education level: Not on file Occupational History Not on file Tobacco Use Smoking status: Former Smoker Types: Cigarettes Smokeless tobacco: Never Used Substance and Sexual Activity Alcohol use: Never Frequency: Never Drug use: Not on file Sexual activity: Not Currently Partners: Female Other Topics Concern Not on file Social History Narrative Not on file No family history on file. No history of strokes reported. ALLERGIES No Known Allergies Objective: No current outpatient medications on file. Vitals: 08/28/18 1432 BP: 139/76 Pulse: 66 Weight: 82.7 kg (182 lb 6.4 oz) There is no height or weight on file to calculate BMI. Physical Exam GENERAL APPEARANCE: The patient is alert. Patient is in no acute distress, following commands and cooperative. Well developed and well nourished. HEENT: Normocephalic and atraumatic. CARDIOVASCULAR: Regular rate and rhythm. PULMONARY: Lungs are clear to auscultation bilaterally. NEUROLOGIC EXAM: Orientation: The patient is alert and oriented times three. Patient is following commands. Speech is fluent, intact comprehension, repetition and naming. Word recollection 3/3 after 5 minutes. Cranial nerves: 1st cranial nerve: not tested 2nd cranial nerve: normal; Visual mcdowell are full to confrontation. Pupils are equal, round, and reactive to light and accommodation. 3rd, 4th & 6th cranial nerves: Extraocular movements are intact without nystagmus. 5th cranial nerve: normal; intact muscles of mastication. Intact light touch and pin prick. 7th cranial nerve: normal; no facial asymmetry 8th cranial nerve: normal 9th & 10th cranial nerves: normal; Gag is present 11th cranial nerve: normal; Shoulder shrug symmetric 12th cranial nerve: normal; tongue is midline. Strength: (Right/Left) Deltoid 5/5, Biceps 5/5, Triceps 5/5, Finger ext 5/5, interossei 5/5, Hip Flexion 5/5, Knee ext 5/5, Knee flex 5/5, Ankle dorsiflexion 5/5, Ankle plantarflexion 5/5. Normal bulk and tone in all four limbs without any evidence of an arm drift. No abnormal movements during exam. Sensory: Intact to pain, temperature and vibration in both upper/lower extremites. Coordination is intact [id number], fine finger movements, rapidly alternating movements, heel to live and toe tapping. Deep tendon reflexes are 2+ in biceps, triceps, brachioradiallis and patellar bilaterally and 1+ ankle reflex. Obrien sign is absent bilaterally. Romberg sign is absent. Gait is normal based without ataxia. Fair tandem walking. NIHSS:0 Assessment and Plan: Recent ischemic stroke (unclear etiology, possible embolic). Patient with history of HTN, hyperlipidemia CAD s/p CABG, sick sinus syndrome s/p pacemaker , referred to our clinic due to recent stroke last May 2018. At that time, patient presented to an outside hospital with word finding problems and lost memory of events. Patient was given IV TPA and speech problems almost resolved. MRI brain not possible due to pacemaker, CTH with no clear abnormalities, vascular imaging showed no significant stenosis and TTE was also unremarkable. Denies prior history of stroke. He has been recovering and still has residual writing as well as memory issues since last hospitalization. Patient was started on antiplatelets and Zetia at that time and denies stroke like events since then. Patient is able to walk without assistance and denies recent falls. Denies new neurological symptoms and memory issues have been similar lately. Neurological exam with no clear foical weakness, NIHSS was 0 today. We will continue with same meds for stroke prevention, but we plan to repeat labs today. Patient may also continue with PT and keep appointment with scale technician to discuss about cardioembolism. Recommendations: 1. Continue with aspirin/Plavix and cholesterol meds for vascular prevention. 2. Continue to monitor BP, PCP to adjust BP medications as needed. 3. We will order labs including lipid panel, HbA1c, TSH and B12 level. 4. PT when possible, patient advised to discuss with scale technician about possibility of embolic stroke. 5. Patient will have a follow up appointment in 3 months. After a discussion, the patient agrees with the plan. Total time for discussion was 60 minutes, greater than 35 minutes were spent face to face specifically discussing my impression of stroke, recommended diagnostic studies/review of diagnostic studies, prognosis, risks and benefits of management, instructions for management, and importance of compliance. documented in this encounter Plan of Treatment Not on filedocumented as of this encounter Results * HEMOGLOBIN A1C (08/29/2018) Hemoglobin A1C 5.7 [facility] Specimen Blood - Blood Narrative Performed At Performing Organization Address [facility] Phone Number [address] [address] [phone] 10A * LIPID PROFILE (08/29/2018) Cholesterol 166 [facility] Triglycerides 130 [facility] HDL 46.0 [facility] LDL 94 [facility] VLDL [facility] Non HDL [facility] Cholesterol Cholesterol/HDL 3.6 [facility] Ratio Specimen Blood - Blood Narrative Performed At Performing Organization Address [facility] Phone Number MA[facility] [address] [place] [address] * VITAMIN B12 (08/29/2018) Specimen Blood Narrative Performed At Performing Organization Address [facility] Phone Number [facility] [address] [place] [address] 10A * TSH WITH FREE T4 REFLEX (08/29/2018) Specimen Blood Narrative Performed At Performing Organization Address [facility] Phone Number [address] [address] 10A documented in this encounter Visit Diagnoses Diagnosis Cerebrovascular accident (CVA), unspecified mechanism (HCC) - Primary Memory loss Hyperglycemia Other abnormal glucose documented in this encounter
--- OUTSIDE RECORDS SUMMARY | 2018-10-04 17:30 | XMS REPORT | Clinical Summary ---
Author Author [facility] Organization [facility] Address Unknown Phone Unavailable Care Team Providers Care Coal Wheeler Name Role Phone Susannah Dumont MD PCP Source Comments Some departments are not documenting in the electronic medical record. If you do not see the information that you expected, contact Release of Information in the Health Information Management department at [phone] for further assistance in locating additional records.[facility] Allergies No Known Allergies Medications End Date Status Medication Sig Dispensed Refills Start Date Active ezetimibe (ZETIA) 10 mg Take 10 mg by 0 tablet mouth daily. Active metoprolol tartrate Take 50 mg by 0 (LOPRESSOR) 50 mg tablet mouth twice daily. Active ranolazine ER (RANEXA) Take by 0 500 mg tablet mouth twice daily. Active ALPRAZolam (XANAX) 0.25 Take 0.25 mg 0 mg tablet by mouth twice daily as needed for Anxiety. Active glucosamine/chondr hernandez A Take 1 tablet 0 sod (OSTEO BI-FLEX PO) by mouth daily. Active Cholecalciferol (Vitamin Take by 0 D3) 1,000 unit cap mouth. Active ascorbic acid (VITAMIN C) Take 500 mg 0 500 mg tablet by mouth daily. Active losartan (COZAAR) 50 mg Take 50 mg by 0 tablet mouth daily. Active clopiDOGrel (PLAVIX) 75 Take 75 mg by 0 mg tablet mouth daily. Active aspirin 81 mg chewable Chew 81 mg by 0 tablet mouth daily. Take with food. Active Problems No known active problems Encounters Care Team Description Date Type Specialty Theron Reyes MD Results 09/11/2018 Telephone Neurology Taylor Alvarez Memory loss; Cerebrovascular accident (CVA), unspecified mechanism (HCC); Hyperglycemia 09/08/2018 Orders Only Neurology Theron Reyes MD Cerebrovascular accident (CVA), unspecified mechanism (HCC) (Primary Dx); Memory loss; Hyperglycemia 08/28/2018 Office Visit Neurology from Last 3 Months Social History Date Tobacco Use Types Packs/Day [...] Travel Start No recent travel history available. Last Filed Vital Signs Time Taken Vital Sign Reading 08/28/2018 2:32 PM CDT Blood Pressure 139/76 08/28/2018 2:32 PM CDT Pulse 66 - Temperature - - Respiratory Rate - - Oxygen Saturation - - Inhaled Oxygen - Concentration 08/28/2018 2:32 PM CDT Weight 82.7 kg (182 lb 6.4 oz) - Height - - Body Mass Index - Plan of Treatment Health Maintenance Due Date Last Done Comments PHYSICAL (COMPREHENSIVE) 1944 EXAM DTAP/TDAP VACCINES (1 - 1955 Tdap) SHINGLES RECOMBINANT 1987 VACCINE (1 of 2) PNEUMONIA (PCV13/PPSV23) 2002 VACCINES (1 of 2 - PCV13) INFLUENZA VACCINE 01/08/2019 Procedures Comments Procedure Name Priority Date/Time Associated Diagnosis HEMOGLOBIN A1C Routine 08/29/2018 Hyperglycemia Cerebrovascular accident (CVA), unspecified mechanism (HCC) LIPID PROFILE Routine 08/29/2018 Cerebrovascular accident (CVA), unspecified mechanism (HCC) VITAMIN B12 Routine 08/29/2018 Memory loss TSH WITH FREE T4 REFLEX Routine 08/29/2018 Memory loss from Last 3 Months Results * TSH WITH FREE T4 REFLEX (08/29/2018) Specimen Blood Narrative Performed At Performing Organization Address City/State/Zipcode Phone Number [address] [address] 10A * HEMOGLOBIN A1C (08/29/2018) Hemoglobin A1C 5.7 [facility] Specimen Blood - Blood Narrative Performed At Performing Organization Address City/State/Zipcode Phone Number [facility] [address] [place] [address] 10A * VITAMIN B12 (08/29/2018) Specimen Blood Narrative Performed At Performing Organization Address City/State/Zipcode Phone Number [facility] [address] [place] [address] 10A * LIPID PROFILE (08/29/2018) Cholesterol 166 [facility] Triglycerides 130 [facility] HDL 46.0 [facility] LDL 94 [facility] VLDL [facility] Non HDL [facility] Cholesterol Cholesterol/HDL 3.6 [facility] Ratio Specimen Blood - Blood Narrative Performed At Performing Organization Address [facility] Phone Number [facility] [address] [place] [address] from Last 3 Months Insurance Type Payer Benefit Subscriber ID Effective Phone Address Plan / Dates Group Medicare MEDICARE MEDICARE xxxxxxxxxxx 2002-P PART A AND resent B Medicare BCBS ROGER BCBS xxxxxxxxxxxx [id number] SUPPLEMENT resent Advance Directives Patient has advance care planning documents on file. For more information, please contact: [facility] [address] [place] [address]
--- OUTSIDE RECORDS SUMMARY | 2018-10-04 17:31 | XMS REPORT | CCD ---
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 Role Phone PP Unavailable CCM Unavailable Summary Purpose Interface Exchange Insurance Providers Payer name Policy type / Coverage type Covered alliance party ID Effective Begin Date Effective End Date WPS Medicare Part B Medicare Part B [id number] Unknown Unknown [facility] Medicare Part B [id number] Unknown Unknown Family history Father Diagnosis Age At Onset Arthritis Unknown Hypertension Unknown Brother Diagnosis Age At Onset Cancer Unknown Heart Attack Unknown Mother Diagnosis Age At Onset Skin cancer Unknown Cancer Unknown Social History Social History Element Codes Description Effective Dates Marital status Unknown Amber 07/24/2016 Number of children Unknown 3 04/01/[address]: 1803426 Former smoker 1995 04/01/[address]: 367681627 Never drinks alcohol 04/01/2015 Allergies, Adverse Reactions, Alerts Substance Reaction Codes Entered Date Inactivated Date Status * NO KNOWN DRUG ALLERGIES Unknown 04/01/2015 No Inactive Date Active Past Medical History Illness Codes Condition Status Onset Date Resolved Date Vitamin B12 deficiency anemia, unspecified ICD-9: 281.1 ICD-10: D51.9 Active 09/11/2018 Unknown Anemia, unspecified ICD-9: 285.9 ICD-10: D64.9 Active 03/31/2015 Unknown Acute bronchitis due to other specified organisms ICD-9: 466.0 ICD-10: J20.8 Active 06/24/2018 Unknown 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 ICD-9: 434.91 ICD-10: I63.59 Active 05/26/2018 Unknown Essential (primary) hypertension ICD-9: 401.1 ICD-10: I10 Active 01/23/2016 Unknown Mixed hyperlipidemia ICD-9: 272.2 ICD-10: E78.2 Active 07/24/2016 Unknown Personal history of transient ischemic attack (TIA), and cerebral infarction without residual deficits ICD-9: V12.54 ICD-10: Z86.73 Active 05/26/2018 Unknown 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9 09/11/2018 Active Anemia, unspecified ICD-9: 285.9 ICD-10: D64.9 03/31/2015 Active Acute bronchitis due to other specified organisms ICD-9: 466.0 ICD-10: J20.8 06/24/2018 Active 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 ICD-9: 434.91 ICD-10: I63.59 05/26/2018 Active Essential (primary) hypertension ICD-9: 401.1 ICD-10: I10 01/23/2016 Active Mixed hyperlipidemia ICD-9: 272.2 ICD-10: E78.2 07/24/2016 Active Personal history of transient ischemic attack (TIA), and cerebral infarction without residual deficits ICD-9: V12.54 ICD-10: Z86.73 05/26/2018 Active Atherosclerotic heart disease of [place] coronary artery without angina pectoris ICD-9: 414.00 ICD-10: I25.10 07/24/2016 Active Impacted cerumen, right ear ICD-9: 380.4 ICD-10: H61.21 01/31/2016 Active BPH Unknown 04/01/2015 Active carotid stenosis Unknown 04/01/2015 Active Hyperlipidemia Unknown 04/01/2015 Active Hypertension Unknown 04/01/2015 Active Essential (primary) hypertension ICD-9: 401.9 ICD-10: I10 03/31/2015 Active Gross hematuria ICD-9 : 599.71 ICD-10: R31.0 03/31/2015 Active Medications Medication Codes Instructions Start Date Stop Date Status Fill Instructions cyanocobalamin (vit B-12) 1,000 mcg/mL injection solution RxNorm: 612282 1 Milliliter(s) Inj 09/23/2018 09/23/2018 Inactive cyanocobalamin (vit B-12) 1,000 mcg/mL injection solution RxNorm: 744838 Milliliter(s) Inj 09/11/2018 09/11/2018 Inactive Ativan 0.5 mg tablet RxNorm: 408049 1/2-1 Tablet(s) PO Q8 as needed 08/08/2018 No Stop Date Active Xanax 0.25 mg tablet RxNorm: 943678 1 Tablet(s) PO Q6 201808/07/2018 Inactive doxycycline hyclate 100 mg capsule RxNorm: 9560894 1 Capsule(s) PO BID 06/24/2018 07/03/2018 Inactive prednisone 20 mg tablet RxNorm: 648246 2 Tablet(s) PO daily 06/28/2018 Inactive Kenalog 40 mg/mL suspension for injection RxNorm: 4237357 Milliliter(s) Inj 06/24/2018 06/24/2018 Inactive coenzyme Q10 100 mg tablet RxNorm: 000724 1 Tablet(s) PO daily 07/24/2016 02/18/2017 Inactive Norvasc 5 mg tablet RxNorm: 628531 1 Tablet(s) PO daily No Start Date Active metoprolol tartrate 25 mg tablet RxNorm: 532754 1 Tablet(s) PO BID No Start Date Active Ranexa 500 mg tablet,extended release RxNorm: 930716 1 Tablet(s) PO BID No Start Date Active benazepril 10 mg tablet RxNorm: 553337 1 Tablet(s) PO daily No Start Date Active aspirin 81 mg capsule,delayed release RxNorm: 219046 1 Capsule(s) PO No Start Date Active turmeric root extract 500 mg capsule RxNorm: 2055258 Capsule(s) PO daily No Start Date 10/19/2015 Inactive Aleve 220 mg capsule RxNorm: 8093559 1 Capsule(s) PO daily No Start Date 10/19/2015 Inactive clopidogrel 75 mg tablet RxNorm: 413782 Tablet(s) PO daily No Start Date 01/23/2016 Inactive simvastatin 5 mg tablet RxNorm: 575490 1 Tablet(s) PO QHS No Start Date 05/20/2017 Inactive Ativan 0.5 mg tablet RxNorm: 424939 1/2-1 Tablet(s) PO Q8 as needed No Start Date 08/07/2018 Inactive Aleve PM 220 mg-25 mg tablet RxNorm: 5115261 1 Tablet(s) PO QHS No Start Date 01/23/2016 Inactive magnesium RxNorm: PO No Start Date 2015 Inactive Xanax 0.25 mg tablet RxNorm: 372727 1 Tablet(s) PO Q6 No Start Date 2018 Inactive Fish Oil 1,000 mg capsule RxNorm: 1 Capsule(s) PO daily No Start Date 10/19/2015 Inactive Vitamin D3 2,000 unit tablet RxNorm: 841542 1 Tablet(s) PO daily No Start Date 10/19/2015 Inactive pantoprazole 20 mg tablet,delayed release RxNorm: 238775 1 Tablet(s) PO daily No Start Date 01/23/2016 Inactive Osteo Bi-Flex 250 mg-200 mg tablet RxNorm: 292844 Tablet(s) PO No Start Date 11/19/2016 Inactive Medication Administered Medication Codes Instructions Start Date Status cyanocobalamin (vit B-12) 1,000 mcg/mL injection solution RxNorm: 991441 1Milliliter 09/23/2018 Active cyanocobalamin (vit B-12) 1,000 mcg/mL injection solution RxNorm: 049668 Milliliter 09/11/2018 No longer Active Kenalog 40 mg/mL suspension for injection RxNorm: 6550893 Milliliter 06/24/2018 No longer Active Immunizations No Immunization data Assessments Condition Codes Effective Dates Vitamin B12 deficiency anemia, unspecified ICD-10: D51.9 ICD-9: 281.1 09/23/2018 Acute bronchitis due to other specified organisms ICD-10: J20.8 ICD-9: 466.0 06/24/2018 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 ICD-10: I63.59 ICD-9: 434.91 05/26/2018 Essential (primary) hypertension ICD-10: I10 ICD-9: 401.1 05/26/2018 Mixed hyperlipidemia ICD-10: E78.2 ICD-9: 272.2 05/26/2018 Personal history of transient ischemic attack (TIA), and cerebral infarction without residual deficits ICD-10: Z86.73 ICD-9: V12.54 05/26/2018 Atherosclerotic heart disease of [place] coronary artery without angina pectoris ICD-10: I25.10 ICD-9: 414.00 07/24/2016 Impacted cerumen, right ear ICD-10: H61.21 ICD-9: 380.4 02/01/2016 Anemia, unspecified ICD-10: D64.9 ICD-9: 285.9 04/01/2015 Gross hematuria ICD-10: R31.0 ICD-9: 599.71 04/01/2015 Essential (primary) hypertension ICD-10: I10 ICD-9: 401.9 04/01/2015 Reason For Visit Reason For Visit Effective Dates Notes hypertension 06/24/2018 Hospital Follow Up 05/26/2018 hypertension 05/21/2017 left hip pain hypertension 11/20/2016 hypertension 07/24/2016 hypertension 01/24/2016 Hospital Follow Up 10/20/2015 Hospital Follow Up 10/19/2015 urinary retention/hesitancy 04/01/2015 has blood clots Results Observation Observation Code Item Item Code Result Date Comp Metabolic Fva068 NA 136 mEq/L 07/25/2016 Comp Metabolic Wak624 K 4.1 mEq/L 07/25/2016 Comp Metabolic Rhz705 CL 102 mEq/L 07/25/2016 Comp Metabolic Oyv474 CO2 26.0 mEq/L 07/25/2016 Comp Metabolic Haq322 ANION GAP 12 07/25/2016 Comp Metabolic Nkn800 GLUCOSE 105 mg/dL 07/25/2016 Comp Metabolic Eus154 Creat 1.1 mg/dL 07/25/2016 Comp Metabolic Fpb011 eGFR 67 ml/min/1.73m2 07/25/2016 Comp Metabolic Qlo273 BUN 20 mg/dL 07/25/2016 Comp Metabolic Bnj170 B/C Ratio 17.9 Ratio 07/25/2016 Comp Metabolic Lgj882 CALCIUM 8.8 mg/dL 07/25/2016 Comp Metabolic Xuo396 ALK PHOS 71 U/L 07/25/2016 Comp Metabolic Vbf815 AST(SGOT) 14 U/L 07/25/2016 Comp Metabolic Utv096 ALT(SGPT) 13 U/L 07/25/2016 Comp Metabolic Nnj745 BILI T 0.6 mg/dL 07/25/2016 Comp Metabolic Qgy010 ALBUMIN 3.9 g/dL 07/25/2016 Comp Metabolic Nyd390 TPRO 6.4 g/dL 07/25/2016 Comp Metabolic Olz551 GLOB 2.5 g/dL 07/25/2016 Comp Metabolic Pyn779 A/G Ratio 1.5 Ratio 07/25/2016 Comp Metabolic Cnd700 Osmo 275 mOsmo 07/25/2016 Lipid Ord30 CHOL 189 mg/dL 07/25/2016 Lipid Ord30 HDL 44.0 mg/dl 07/25/2016 Lipid Ord30 TRIG 127 mg/dL 07/25/2016 Lipid Ord30 LDL 120 mg/dL 07/25/2016 Lipid Ord30 C/HDL 4.3 Ratio 07/25/2016 Tsh Ord6 hTSH II 2.72 uIU/mL 07/25/2016 Cbc With Differential Ord2 WBC 5.27 K/ul 07/25/2016 Cbc With Differential Ord2 RBC 4.49 M/ul 07/25/2016 Cbc With Differential Ord2 HGB 13.4 g/dl 07/25/2016 Cbc With Differential Ord2 HCT 39.9 % 07/25/2016 Cbc With Differential Ord2 Neut% 56.2 % 07/25/2016 Cbc With Differential Ord2 MCV 88.9 fl 07/25/2016 Cbc With Differential Ord2 Lymph% 21.6 % 07/25/2016 Cbc With Differential Ord2 MCH 29.8 pg 07/25/2016 Cbc With Differential Ord2 [place]% 14.4 % 07/25/2016 Cbc With Differential Ord2 MCHC 33.6 pg 07/25/2016 Cbc With Differential Ord2 Eos% 7.4 % 07/25/2016 Cbc With Differential Ord2 PLT 215 K/ul 07/25/2016 Cbc With Differential Ord2 Baso% 0.4 % 07/25/2016 Cbc With Differential Ord2 RDW 14.1 % 07/25/2016 Cbc With Differential Ord2 Neut ABS# 2.96 K/ul 07/25/2016 Cbc With Differential Ord2 Lymph ABS# 1.14 K/ul 07/25/2016 Cbc With Differential Ord2 [place] ABS# 0.8 K/ul 07/25/2016 Cbc With Differential Ord2 Eos ABS# 0.4 K/ul 07/25/2016 Cbc With Differential Ord2 Baso ABS# 0.0 K/ul 07/25/2016 Cbc With Differential Ord2 WBC 9.9 K/uL 04/01/2015 Cbc With Differential Ord2 LYM 1.9 K/uL 04/01/2015 Cbc With Differential Ord2 LYM% 19.4 % 04/01/2015 Cbc With Differential Ord2 NEUT/GRAN 7.4 K/uL 04/01/2015 Cbc With Differential Ord2 NEUT/GRAN % 75.2 % 04/01/2015 Cbc With Differential Ord2 MID 0.5 K/uL 04/01/2015 Cbc With Differential Ord2 MID% 5.4 % 04/01/2015 Cbc With Differential Ord2 RBC 3.74 M/uL 04/01/2015 Cbc With Differential Ord2 HGB 10.4 g/dL 04/01/2015 Cbc With Differential Ord2 HCT 33.7 % 04/01/2015 Cbc With Differential Ord2 MCV 90 fL 04/01/2015 Cbc With Differential Ord2 MCH 28 pg 04/01/2015 Cbc With Differential Ord2 MCHC 31 g/dL 04/01/2015 Cbc With Differential Ord2 PLT 258 K/uL 04/01/2015 Cbc With Differential Ord2 RDW 14.9 % 04/01/2015 Comp Metabolic Bjk843 NA 124 mEq/L 04/01/2015 Comp Metabolic Wuu623 K 4.2 mEq/L 04/01/2015 Comp Metabolic Xib308 CL 93 mEq/L 04/01/2015 Comp Metabolic Mog518 CO2 24.0 mEq/L 04/01/2015 Comp Metabolic Cuh309 ANION GAP 11 04/01/2015 Comp Metabolic Fsb158 GLUCOSE 103 mg/dL 04/01/2015 Comp Metabolic Urz330 Creat 1.0 mg/dL 04/01/2015 Comp Metabolic Kfz384 eGFR 75 ml/min/1.73m2 04/01/2015 Comp Metabolic Rsi682 BUN 13 mg/dL 04/01/2015 Comp Metabolic Qgl529 B/C Ratio 12.7 Ratio 04/01/2015 Comp Metabolic Yay677 CALCIUM 9.1 mg/dL 04/01/2015 Comp Metabolic Qfk593 ALK PHOS 65 U/L 04/01/2015 Comp Metabolic Wav229 AST(SGOT) 15 U/L 04/01/2015 Comp Metabolic Kem356 ALT(SGPT) 15 U/L 04/01/2015 Comp Metabolic Shd923 BILI T 1.1 mg/dL 04/01/2015 Comp Metabolic Aff034 ALBUMIN 4.0 g/dL 04/01/2015 Comp Metabolic Afl481 TPRO 6.2 g/dL 04/01/2015 Comp Metabolic Mso894 GLOB 2.2 g/dL 04/01/2015 Comp Metabolic Cet979 A/G Ratio 1.8 Ratio 04/01/2015 Comp Metabolic Yls230 Osmo 250 mOsmo 04/01/2015 Review of Systems System Result Effective Dates Constitutional recent illness 06/24/2018 Constitutional chills 06/24/2018 Constitutional No fever 06/24/2018 Eyes No eye erythema 06/24/2018 Ears/Nose/Throat/Neck nasal allergies Ears/Nose/Throat/Neck nasal discharge Ears/Nose/Throat/Neck postnasal drip Ears/Nose/Throat/Neck sinus congestion Cardiovascular No chest pain/pressure Respiratory productive sputum 06/24/2018 Respiratory cough 06/24/2018 Respiratory wheezing 06/24/2018 Gastrointestinal No abdominal pain 2018 Musculoskeletal No joint complaint 2018 Dermatologic No rash 06/24/2018 Neurologic No alteration of consciousness 06/24/2018 Neurologic No mental status change 2018 Constitutional No recent illness 2017 Constitutional No anorexia 05/26/2018 Constitutional No night sweats 2017 Constitutional No chills 05/26/2018 Constitutional No diaphoresis 05/26/2018 Constitutional fatigue 05/26/2018 Constitutional No fever 05/26/2018 Constitutional No insomnia 05/26/2018 Constitutional No malaise 05/26/2018 Eyes No eye discharge 05/26/2018 Eyes No eye erythema 05/26/2018 Ears/Nose/Throat/Neck No dizziness 2017 Ears/Nose/Throat/Neck No headache 2017 Cardiovascular No chest pain/pressure Cardiovascular No dyspnea 05/26/2018 Cardiovascular No edema 05/26/2018 Respiratory No productive sputum 2017 Respiratory No chest congestion 2017 Gastrointestinal No abdominal pain 2017 Gastrointestinal constipation 05/26/2018 Gastrointestinal No diarrhea 05/26/2018 Genitourinary/Nephrology No nocturia Musculoskeletal arthralgia(s) 05/26/2018 Musculoskeletal joint complaint 2017 Dermatologic No rash 05/26/2018 Neurologic No alteration of consciousness 05/26/2018 Psychiatric No anxiety 05/26/2018 Psychiatric No depression 05/26/2018 Cardiovascular hypertension 05/26/2018 Constitutional No recent illness 2016 Constitutional No anorexia 05/21/2017 Constitutional No night sweats 2016 Constitutional No chills 05/21/2017 Constitutional No diaphoresis 05/21/2017 Constitutional fatigue 05/21/2017 Constitutional No fever 05/21/2017 Constitutional No insomnia 05/21/2017 Constitutional No malaise 05/21/2017 Eyes No eye discharge 05/21/2017 Eyes No eye erythema 05/21/2017 Ears/Nose/Throat/Neck No dizziness 2016 Ears/Nose/Throat/Neck No headache 2016 Cardiovascular No chest pain/pressure 05/2017 Cardiovascular No dyspnea 05/21/2017 Cardiovascular No edema 05/21/2017 Respiratory No productive sputum 2016 Respiratory No chest congestion 2016 Gastrointestinal No abdominal pain 2016 Gastrointestinal constipation 05/21/2017 Gastrointestinal No diarrhea 05/21/2017 Musculoskeletal joint complaint 2016 Dermatologic No rash 05/21/2017 Neurologic No alteration of consciousness 05/21/2017 Psychiatric No anxiety 05/21/2017 Psychiatric No depression 05/21/2017 Musculoskeletal arthralgia(s) 05/21/2017 Genitourinary/Nephrology No nocturia 05/2017 Constitutional No recent illness 2016 Constitutional No anorexia 11/20/2016 Constitutional No night sweats 2016 Constitutional No chills 11/20/2016 Constitutional No diaphoresis 11/20/2016 Constitutional No fatigue 11/20/2016 Constitutional No fever 11/20/2016 Constitutional No insomnia 11/20/2016 Constitutional No malaise 11/20/2016 Eyes No eye discharge 11/20/2016 Eyes No eye erythema 11/20/2016 Ears/Nose/Throat/Neck No dizziness 2016 Ears/Nose/Throat/Neck No headache 2016 Cardiovascular No chest pain/pressure Cardiovascular No dyspnea 11/20/2016 Cardiovascular No edema 11/20/2016 Respiratory No productive sputum 2016 Respiratory No chest congestion 2016 Gastrointestinal No abdominal pain 2016 Gastrointestinal constipation 11/20/2016 Gastrointestinal No diarrhea 11/20/2016 Genitourinary/Nephrology No dysuria 11/20 Genitourinary/Nephrology No hematuria Musculoskeletal No joint complaint 2016 Dermatologic No rash 11/20/2016 Neurologic No alteration of consciousness 11/20/2016 Psychiatric No anxiety 11/20/2016 Psychiatric No depression 11/20/2016 Constitutional No recent illness 2016 Constitutional No anorexia 07/24/2016 Constitutional No night sweats 2016 Constitutional No chills 07/24/2016 Constitutional No diaphoresis 07/24/2016 Constitutional No fatigue 07/24/2016 Constitutional No fever 07/24/2016 Constitutional No insomnia 07/24/2016 Constitutional No malaise 07/24/2016 Eyes No eye discharge 07/24/2016 Eyes No eye erythema 07/24/2016 Ears/Nose/Throat/Neck No dizziness 2016 Ears/Nose/Throat/Neck No headache 2016 Cardiovascular No chest pain/pressure Cardiovascular No dyspnea 07/24/2016 Cardiovascular No edema 07/24/2016 Respiratory No productive sputum 2016 Respiratory No chest congestion 2016 Gastrointestinal No abdominal pain 2016 Gastrointestinal constipation 07/24/2016 Gastrointestinal No diarrhea 07/24/2016 Genitourinary/Nephrology dysuria 2016 Genitourinary/Nephrology hematuria 2016 Genitourinary/Nephrology urinary retention/hesitancy 07/24/2016 Musculoskeletal No joint complaint 2016 Dermatologic No rash 07/24/2016 Neurologic No alteration of consciousness 07/24/2016 Psychiatric No anxiety 07/24/2016 Psychiatric No depression 07/24/2016 Constitutional recent illness 01/24/2016 Constitutional No anorexia 01/24/2016 Constitutional No night sweats 2015 Constitutional No chills 01/24/2016 Constitutional No diaphoresis 01/24/2016 Constitutional No fatigue 01/24/2016 Ears/Nose/Throat/Neck No dizziness 2015 Ears/Nose/Throat/Neck No headache 2015 Cardiovascular No chest pain/pressure Cardiovascular No dyspnea 01/24/2016 Cardiovascular No edema 01/24/2016 Respiratory No productive sputum 2015 Respiratory No chest congestion 2015 Gastrointestinal No abdominal pain 2015 Gastrointestinal constipation 01/24/2016 Gastrointestinal No diarrhea 01/24/2016 Musculoskeletal No joint complaint 2015 Neurologic No alteration of consciousness 01/24/2016 Psychiatric No anxiety 01/24/2016 Psychiatric No depression 01/24/2016 Endocrine No dry or coarse skin 2015 Constitutional recent illness 10/20/2015 Constitutional No anorexia 10/20/2015 Constitutional No night sweats 2015 Constitutional No chills 10/20/2015 Constitutional No diaphoresis 10/20/2015 Constitutional No fatigue 10/20/2015 Ears/Nose/Throat/Neck No dizziness 2015 Ears/Nose/Throat/Neck No headache 2015 Cardiovascular No chest pain/pressure 05/2016 Cardiovascular No dyspnea 10/20/2015 Cardiovascular No edema 10/20/2015 Respiratory No productive sputum 2015 Respiratory No chest congestion 2015 Gastrointestinal No abdominal pain 2015 Gastrointestinal constipation 10/20/2015 Gastrointestinal No diarrhea 10/20/2015 Musculoskeletal No joint complaint 2015 Neurologic No alteration of consciousness 10/20/2015 Psychiatric No anxiety 10/20/2015 Psychiatric No depression 10/20/2015 Endocrine No dry or coarse skin 2015 Constitutional No recent illness 2014 Constitutional No anorexia 04/01/2015 Constitutional No night sweats 2014 Constitutional No chills 04/01/2015 Constitutional No diaphoresis 04/01/2015 Constitutional No fatigue 04/01/2015 Constitutional No fever 04/01/2015 Constitutional No insomnia 04/01/2015 Constitutional No malaise 04/01/2015 Constitutional No weight loss 04/01/2015 Constitutional No weight gain 04/01/2015 Eyes No eye discharge 04/01/2015 Eyes No eye erythema 04/01/2015 Ears/Nose/Throat/Neck No dizziness 2014 Ears/Nose/Throat/Neck No headache 2014 Cardiovascular No chest pain/pressure Cardiovascular No dyspnea 04/01/2015 Cardiovascular No edema 04/01/2015 Respiratory No productive sputum 2014 Respiratory No chest congestion 2014 Gastrointestinal No abdominal pain 2014 Gastrointestinal constipation 04/01/2015 Gastrointestinal No diarrhea 04/01/2015 Genitourinary/Nephrology dysuria 2014 Genitourinary/Nephrology urinary retention/hesitancy 04/01/2015 Genitourinary/Nephrology hematuria 2014 Musculoskeletal No joint complaint 2014 Dermatologic No rash 04/01/2015 Neurologic No alteration of consciousness 04/01/2015 Psychiatric No anxiety 04/01/2015 Psychiatric No depression 04/01/2015 Endocrine No dry or coarse skin 2014 Physical Exam Exam Name System Name Item Name Status Result Effective Dates Notes Full Exam - General 1994 Constitutional general appearance Overall: well developed 06/24/2018 None Full Exam - General 1994 Constitutional general appearance Overall: in no acute distress 06/24/2018 None Full Exam - General 1994 Constitutional general appearance Overall: well nourished 06/24/2018 None Full Exam - General 1994 Eyes conjunctiva /eyelids Overall: conjunctiva clear 06/24/2018 None Full Exam - General 1994 Eyes conjunctiva /eyelids Overall: eyelids normal 06/24/2018 None Full Exam - General 1994 Ears/Nose/Throat otoscopic exam Overall: external auditory canals clear 06/24/2018 None Full Exam - General 1994 Ears/Nose/Throat otoscopic exam Tympanic membrane: air- fluid level 06/24/2018 None Full Exam - General 1994 Ears/Nose/Throat lips/teeth/gingiva Overall: benign lips 06/24/2018 None Full Exam - General 1994 Ears/Nose/Throat oral cavity/pharynx/larynx Overall: oral mucosa clear 06/24/2018 None Full Exam - General 1994 Ears/Nose/Throat oral cavity/pharynx/larynx Posterior Pharynx: clear post nasal drainage 06/24/2018 None Full Exam - General 1994 Respiratory auscultation Diffuse: diminished 06/24/2018 None Full Exam - General 1994 Respiratory auscultation Lower lung field: expiratory wheezes 06/24/2018 None Full Exam - General 1994 Respiratory respiratory effort/rhythm Overall: no retractions 06/24/2018 None Full Exam - General 1994 Respiratory respiratory effort/rhythm Overall: normal rate 06/24/2018 None Full Exam - General 1994 Cardiovascular auscultation of heart Overall: regular rate 06/24/2018 None Full Exam - General 1994 Cardiovascular auscultation of heart Overall: normal heart sounds 06/24/2018 None Full Exam - General 1994 Lymphatic neck nodes Overall: anterior cervical chain benign 06/24/2018 None Full Exam - General 1994 Lymphatic neck nodes Overall: posterior cervical chain benign 06/24/2018 None Full Exam - General 1994 Integument inspection of skin Overall: few scattered moles, no gross abnormalities 06/24/2018 None Full Exam - General 1994 Neurologic cranial nerves Overall: crainial nerves 2 - 12 grossly intact 06/24/2018 None Full Exam - General 1994 Psychiatric orientation/consciousness Overall: oriented to person, place and time 06/24/2018 None Full Exam - General 1994 Psychiatric mood and affect Overall: normal mood and affect 06/24/2018 None Full Exam - General 1994 Constitutional general appearance Overall: well developed 05/26/2018 None Full Exam - General 1994 Constitutional general appearance Overall: in no acute distress 05/26/2018 None Full Exam - General 1994 Constitutional general appearance Overall: well nourished 05/26/2018 None Full Exam - General 1994 Eyes conjunctiva /eyelids Overall: conjunctiva clear 05/26/2018 None Full Exam - General 1994 Ears/Nose/Throat otoscopic exam Overall: external auditory canals clear 05/26/2018 None Full Exam - General 1994 Ears/Nose/Throat otoscopic exam Overall: tympanic membranes clear 05/26/2018 None Full Exam - General 1994 Ears/Nose/Throat oral cavity/pharynx/larynx Overall: oral mucosa clear 05/26/2018 None Full Exam - General 1994 Respiratory auscultation Overall: breath sounds clear bilaterally 05/26/2018 None Full Exam - General 1994 Respiratory respiratory effort/rhythm Overall: no retractions 05/26/2018 None Full Exam - General 1994 Respiratory respiratory effort/rhythm Overall: normal rate 05/26/2018 None Full Exam - General 1994 Cardiovascular auscultation of heart Overall: regular rate 05/26/2018 None Full Exam - General 1994 Cardiovascular auscultation of heart Overall: normal heart sounds 05/26/2018 None Full Exam - General 1994 Abdomen abdominal exam Overall: no tenderness 05/26/2018 None Full Exam - General 1994 Abdomen abdominal exam Overall: normal bowel sounds 05/26/2018 None Full Exam - General 1994 Lymphatic neck nodes Overall: anterior cervical chain benign 05/26/2018 None Full Exam - General 1994 Lymphatic neck nodes Overall: posterior cervical chain benign 05/26/2018 None Full Exam - General 1994 Musculoskeletal gait and station Overall: normal gait 05/26/2018 None Full Exam - General 1994 Musculoskeletal gait and station Overall: normal station 05/26/2018 None Full Exam - General 1994 Neurologic deep tendon reflexes Overall: deep tendon reflexes intact 05/26/2018 None Full Exam - General 1994 Neurologic cranial nerves Overall: crainial nerves 2 - 12 grossly intact 05/26/2018 None Full Exam - General 1994 Psychiatric orientation/consciousness Overall: oriented to person, place and time 05/26/2018 None Full Exam - General 1994 Constitutional general appearance Overall: well developed 05/21/2017 None Full Exam - General 1994 Constitutional general appearance Overall: in no acute distress 05/21/2017 None Full Exam - General 1994 Constitutional general appearance Overall: well nourished 05/21/2017 None Full Exam - General 1994 Eyes conjunctiva /eyelids Overall: conjunctiva clear 05/21/2017 None Full Exam - General 1994 Ears/Nose/Throat otoscopic exam Overall: external auditory canals clear 05/21/2017 None Full Exam - General 1994 Ears/Nose/Throat otoscopic exam Overall: tympanic membranes clear 05/21/2017 None Full Exam - General 1994 Ears/Nose/Throat oral cavity/pharynx/larynx Overall: oral mucosa clear 05/21/2017 None Full Exam - General 1994 Respiratory auscultation Overall: breath sounds clear bilaterally 05/21/2017 None Full Exam - General 1994 Respiratory respiratory effort/rhythm Overall: no retractions 05/21/2017 None Full Exam - General 1994 Respiratory respiratory effort/rhythm Overall: normal rate 05/21/2017 None Full Exam - General 1994 Cardiovascular auscultation of heart Overall: regular rate 05/21/2017 None Full Exam - General 1994 Cardiovascular auscultation of heart Overall: normal heart sounds 05/21/2017 None Full Exam - General 1994 Abdomen abdominal exam Overall: no tenderness 05/21/2017 None Full Exam - General 1994 Abdomen abdominal exam Overall: normal bowel sounds 05/21/2017 None Full Exam - General 1994 Lymphatic neck nodes Overall: anterior cervical chain benign 05/21/2017 None Full Exam - General 1994 Lymphatic neck nodes Overall: posterior cervical chain benign 05/21/2017 None Full Exam - General 1994 Musculoskeletal gait and station Overall: normal gait 05/21/2017 None Full Exam - General 1994 Musculoskeletal gait and station Overall: normal station 05/21/2017 None Full Exam - General 1994 Neurologic deep tendon reflexes Overall: deep tendon reflexes intact 05/21/2017 None Full Exam - General 1994 Neurologic cranial nerves Overall: crainial nerves 2 - 12 grossly intact 05/21/2017 None Full Exam - General 1994 Psychiatric orientation/consciousness Overall: oriented to person, place and time 05/21/2017 None Full Exam - General 1994 Constitutional general appearance Overall: well developed 11/20/2016 None Full Exam - General 1994 Constitutional general appearance Overall: in no acute distress 11/20/2016 None Full Exam - General 1994 Constitutional general appearance Overall: well nourished 11/20/2016 None Full Exam - General 1994 Eyes conjunctiva /eyelids Overall: conjunctiva clear 11/20/2016 None Full Exam - General 1994 Ears/Nose/Throat otoscopic exam Overall: external auditory canals clear 11/20/2016 None Full Exam - General 1994 Ears/Nose/Throat otoscopic exam Overall: tympanic membranes clear 11/20/2016 None Full Exam - General 1994 Ears/Nose/Throat oral cavity/pharynx/larynx Overall: oral mucosa clear 11/20/2016 None Full Exam - General 1994 Respiratory auscultation Overall: breath sounds clear bilaterally 11/20/2016 None Full Exam - General 1994 Respiratory respiratory effort/rhythm Overall: no retractions 11/20/2016 None Full Exam - General 1994 Respiratory respiratory effort/rhythm Overall: normal rate 11/20/2016 None Full Exam - General 1994 Cardiovascular auscultation of heart Overall: regular rate 11/20/2016 None Full Exam - General 1994 Cardiovascular auscultation of heart Overall: normal heart sounds 11/20/2016 None Full Exam - General 1994 Abdomen abdominal exam Overall: no tenderness 11/20/2016 None Full Exam - General 1994 Abdomen abdominal exam Overall: normal bowel sounds 11/20/2016 None Full Exam - General 1994 Lymphatic neck nodes Overall: anterior cervical chain benign 11/20/2016 None Full Exam - General 1994 Lymphatic neck nodes Overall: posterior cervical chain benign 11/20/2016 None Full Exam - General 1994 Musculoskeletal gait and station Overall: normal gait 11/20/2016 None Full Exam - General 1994 Musculoskeletal gait and station Overall: normal station 11/20/2016 None Full Exam - General 1994 Neurologic deep tendon reflexes Overall: deep tendon reflexes intact 11/20/2016 None Full Exam - General 1994 Neurologic cranial nerves Overall: crainial nerves 2 - 12 grossly intact 11/20/2016 None Full Exam - General 1994 Psychiatric orientation/consciousness Overall: oriented to person, place and time 11/20/2016 None Full Exam - General 1994 Constitutional general appearance Overall: well developed 07/24/2016 None Full Exam - General 1994 Constitutional general appearance Overall: in no acute distress 07/24/2016 None Full Exam - General 1994 Constitutional general appearance Overall: well nourished 07/24/2016 None Full Exam - General 1994 Eyes conjunctiva /eyelids Overall: conjunctiva clear 07/24/2016 None Full Exam - General 1994 Ears/Nose/Throat otoscopic exam Overall: external auditory canals clear 07/24/2016 None Full Exam - General 1994 Ears/Nose/Throat otoscopic exam Overall: tympanic membranes clear 07/24/2016 None Full Exam - General 1994 Ears/Nose/Throat oral cavity/pharynx/larynx Overall: oral mucosa clear 07/24/2016 None Full Exam - General 1994 Respiratory auscultation Overall: breath sounds clear bilaterally 07/24/2016 None Full Exam - General 1994 Respiratory respiratory effort/rhythm Overall: no retractions 07/24/2016 None Full Exam - General 1994 Respiratory respiratory effort/rhythm Overall: normal rate 07/24/2016 None Full Exam - General 1994 Cardiovascular auscultation of heart Overall: regular rate 07/24/2016 None Full Exam - General 1994 Cardiovascular auscultation of heart Overall: normal heart sounds 07/24/2016 None Full Exam - General 1994 Abdomen abdominal exam Overall: no tenderness 07/24/2016 None Full Exam - General 1994 Abdomen abdominal exam Overall: normal bowel sounds 07/24/2016 None Full Exam - General 1994 Lymphatic neck nodes Overall: anterior cervical chain benign 07/24/2016 None Full Exam - General 1994 Lymphatic neck nodes Overall: posterior cervical chain benign 07/24/2016 None Full Exam - General 1994 Musculoskeletal gait and station Overall: normal gait 07/24/2016 None Full Exam - General 1994 Musculoskeletal gait and station Overall: normal station 07/24/2016 None Full Exam - General 1994 Neurologic deep tendon reflexes Overall: deep tendon reflexes intact 07/24/2016 None Full Exam - General 1994 Neurologic cranial nerves Overall: crainial nerves 2 - 12 grossly intact 07/24/2016 None Full Exam - General 1994 Psychiatric orientation/consciousness Overall: oriented to person, place and time 07/24/2016 None Full Exam - General 1994 Constitutional general appearance Overall: well developed 01/24/2016 None Full Exam - General 1994 Constitutional general appearance Overall: in no acute distress 01/24/2016 None Full Exam - General 1994 Constitutional general appearance Overall: well nourished 01/24/2016 None Full Exam - General 1994 Eyes conjunctiva /eyelids Overall: conjunctiva clear 01/24/2016 None Full Exam - General 1994 Ears/Nose/Throat oral cavity/pharynx/larynx Overall: oral mucosa clear 01/24/2016 None Full Exam - General 1994 Respiratory auscultation Overall: breath sounds clear bilaterally 01/24/2016 None Full Exam - General 1994 Respiratory respiratory effort/rhythm Overall: no retractions 01/24/2016 None Full Exam - General 1994 Respiratory respiratory effort/rhythm Overall: normal rate 01/24/2016 None Full Exam - General 1994 Cardiovascular auscultation of heart Overall: regular rate 01/24/2016 None Full Exam - General 1994 Cardiovascular auscultation of heart Overall: normal heart sounds 01/24/2016 None Full Exam - General 1994 Abdomen abdominal exam Overall: no tenderness 01/24/2016 None Full Exam - General 1994 Abdomen abdominal exam Overall: normal bowel sounds 01/24/2016 None Full Exam - General 1994 Musculoskeletal gait and station Overall: normal gait 01/24/2016 None Full Exam - General 1994 Musculoskeletal gait and station Overall: normal station 01/24/2016 None Full Exam - General 1994 Integument inspection of skin Overall: few scattered moles, no gross abnormalities 01/24/2016 None Full Exam - General 1994 Neurologic deep tendon reflexes Overall: deep tendon reflexes intact 01/24/2016 None Full Exam - General 1994 Neurologic cranial nerves Overall: crainial nerves 2 - 12 grossly intact 01/24/2016 None Full Exam - General 1994 Psychiatric orientation/consciousness Overall: oriented to person, place and time 01/24/2016 None Full Exam - General 1994 Ears/Nose/Throat otoscopic exam External auditory canal: complete cerumen impaction 01/24/2016 None Full Exam - General 1994 Constitutional general appearance Overall: well developed 10/20/2015 None Full Exam - General 1994 Constitutional general appearance Overall: in no acute distress 10/20/2015 None Full Exam - General 1994 Constitutional general appearance Overall: well nourished 10/20/2015 None Full Exam - General 1994 Eyes conjunctiva /eyelids Overall: conjunctiva clear 10/20/2015 None Full Exam - General 1994 Ears/Nose/Throat otoscopic exam Overall: external auditory canals clear 10/20/2015 None Full Exam - General 1994 Ears/Nose/Throat otoscopic exam Overall: tympanic membranes clear 10/20/2015 None Full Exam - General 1994 Ears/Nose/Throat oral cavity/pharynx/larynx Overall: oral mucosa clear 10/20/2015 None Full Exam - General 1994 Respiratory auscultation Overall: breath sounds clear bilaterally 10/20/2015 None Full Exam - General 1994 Respiratory respiratory effort/rhythm Overall: no retractions 10/20/2015 None Full Exam - General 1994 Respiratory respiratory effort/rhythm Overall: normal rate 10/20/2015 None Full Exam - General 1994 Cardiovascular auscultation of heart Overall: regular rate 10/20/2015 None Full Exam - General 1994 Cardiovascular auscultation of heart Overall: normal heart sounds 10/20/2015 None Full Exam - General 1994 Abdomen abdominal exam Overall: no tenderness 10/20/2015 None Full Exam - General 1994 Abdomen abdominal exam Overall: normal bowel sounds 10/20/2015 None Full Exam - General 1994 Musculoskeletal gait and station Overall: normal gait 10/20/2015 None Full Exam - General 1994 Musculoskeletal gait and station Overall: normal station 10/20/2015 None Full Exam - General 1994 Integument inspection of skin Overall: few scattered moles, no gross abnormalities 10/20/2015 None Full Exam - General 1994 Neurologic deep tendon reflexes Overall: deep tendon reflexes intact 10/20/2015 None Full Exam - General 1994 Neurologic cranial nerves Overall: crainial nerves 2 - 12 grossly intact 10/20/2015 None Full Exam - General 1994 Psychiatric orientation/consciousness Overall: oriented to person, place and time 10/20/2015 None Full Exam - General 1994 Constitutional general appearance Overall: well developed 04/01/2015 None Full Exam - General 1994 Constitutional general appearance Overall: in no acute distress 04/01/2015 None Full Exam - General 1994 Constitutional general appearance Overall: well nourished 04/01/2015 None Full Exam - General 1994 Psychiatric orientation/consciousness Overall: oriented to person, place and time 04/01/2015 None Full Exam - General 1994 Neurologic deep tendon reflexes Overall: deep tendon reflexes intact 04/01/2015 None Full Exam - General 1994 Neurologic cranial nerves Overall: crainial nerves 2 - 12 grossly intact 04/01/2015 None Full Exam - General 1994 Integument inspection of skin Overall: few scattered moles, no gross abnormalities 04/01/2015 None Full Exam - General 1994 Musculoskeletal gait and station Overall: normal gait 04/01/2015 None Full Exam - General 1994 Musculoskeletal gait and station Overall: normal station 04/01/2015 None Full Exam - General 1994 Lymphatic neck nodes Overall: anterior cervical chain benign 04/01/2015 None Full Exam - General 1994 Lymphatic neck nodes Overall: posterior cervical chain benign 04/01/2015 None Full Exam - General 1994 Abdomen abdominal exam Overall: no tenderness 04/01/2015 None Full Exam - General 1994 Abdomen abdominal exam Overall: normal bowel sounds 04/01/2015 None Full Exam - General 1994 Cardiovascular auscultation of heart Overall: normal heart sounds 04/01/2015 None Full Exam - General 1994 Cardiovascular auscultation of heart Overall: regular rate 04/01/2015 None Full Exam - General 1994 Respiratory respiratory effort/rhythm Overall: no retractions 04/01/2015 None Full Exam - General 1994 Respiratory respiratory effort/rhythm Overall: normal rate 04/01/2015 None Full Exam - General 1994 Respiratory auscultation Overall: breath sounds clear bilaterally 04/01/2015 None Full Exam - General 1994 Ears/Nose/Throat otoscopic exam Overall: external auditory canals clear 04/01/2015 None Full Exam - General 1994 Ears/Nose/Throat otoscopic exam Overall: tympanic membranes clear 04/01/2015 None Full Exam - General 1994 Ears/Nose/Throat oral cavity/pharynx/larynx Overall: oral mucosa clear 04/01/2015 None Full Exam - General 1994 Eyes conjunctiva /eyelids Overall: conjunctiva clear 04/01/2015 None Procedures Procedure Codes Date THER/PROPH/DIAG INJ SC/IM CPT-4: 21953 09/23/2018 VITAMIN B12 INJECTION CPT-4: J3420 09/23/2018 THER/PROPH/DIAG INJ SC/IM CPT-4: 76760 09/11/2018 VITAMIN B12 INJECTION CPT-4: J3420 09/11/2018 THER/PROPH/DIAG INJ SC/IM CPT-4: 45481 06/24/2018 TRIAMCINOLONE ACET INJ NOS CPT-4: J3301 06/24/2018 Vital Signs Date Vital 06/24/2018 Blood Pressure 1: 150/88 Code : 8480-6 BMI: 27.0 Code : 86906-3 Heart Rate 1 : 85 bpm Height: 5'10" SpO2: 98% Temperature: 36.8 (C) / 98.2 (F) Weight: 188 lbs 05/26/2018 Blood Pressure 1: 128/68 Code : 8480-6 BMI: 27.0 Code : 88807-0 Heart Rate 1 : 62 bpm Height: 5'10" SpO2: 99% Weight: 188 lbs 05/21/2017 Blood Pressure 1: 142/84 Code : 8480-6 BMI: 27.1 Code : 24685-9 Heart Rate 1 : 75 bpm Height: 5'10" SpO2: 97% Weight: 189 lbs 11/20/2016 Blood Pressure 1: 130/88 Code : 8480-6 BMI: 27.7 Code : 97314-4 Heart Rate 1 : 80 bpm Height: 5'10" SpO2: 95% Weight: 193 lbs 07/24/2016 Blood Pressure 1: 132/78 Code : 8480-6 BMI: 27.7 Code : 74862-4 Heart Rate 1 : 78 bpm Height: 5'10" SpO2: 98% Weight: 193 lbs 01/24/2016 Blood Pressure 1: 140/76 Code : 8480-6 BMI: 27.7 Code : 83115-8 Heart Rate 1 : 83 bpm Height: 5'10" SpO2: 95% Weight: 193 lbs 10/20/2015 Blood Pressure 1: 106/66 Code : 8480-6 BMI: 27.3 Code : 40689-7 Heart Rate 1 : 75 bpm Height: 5'10" SpO2: 97% Weight: 190 lbs 8 oz 10/19/2015 Height: 5'10" 04/01/2015 Blood Pressure 1: 118/62 Code : 8480-6 BMI: 27.0 Code : 31911-2 Heart Rate 1 : 77 bpm Height: 5'10" SpO2: 95% Weight: 188 lbs Functional Status No Functional Status data History of Present Illness Symptom Name Status Result Effective Date Notes Onset and Resolution ongoing 06/24/2018 None Onset of Symptom during adulthood 06/24/2018 None Blood Pressure Values not checking blood pressure at home 06/24/2018 None Alleviating Factors medication 06/24/2018 None Pertinent Findings Denies anxiety 06/24/2018 None Pertinent Findings Denies decreased energy 06/24/2018 None Pertinent Findings Denies dizziness 06/24/2018 None Pertinent Findings Denies dyspnea 06/24/2018 None Pertinent Findings Denies edema 06/24/2018 None _ Other: stroke None Quality acute illness 05/26/2018 None Onset of Symptom 1 weeks ago 05/26/2018 None Onset and Resolution resolved 05/26/2018 None hypertension Onset and Resolution ongoing 05/21/2017 None hypertension Onset of Symptom during adulthood 05/21/2017 None hypertension Blood Pressure Values not checking blood pressure at home 05/21/2017 None hypertension Alleviating Factors medication 05/21/2017 None hypertension Pertinent Findings Denies dizziness 05/21/2017 None hypertension Pertinent Findings Denies dyspnea 05/21/2017 None hypertension Pertinent Findings Denies edema 05/21/2017 None hip pain Location on the left 05/21/2017 None hip pain Quality dull ache 05/21/2017 None hip pain Quality chronic 05/21/2017 None hip pain Quality constant 05/21/2017 None hip pain Quality intermittent 05/21/2017 None hip pain Pertinent Findings Denies decreased range of motion 05/21/2017 None hip pain Pertinent Findings instability 05/21/2017 None hip pain Pertinent Findings limping 05/21/2017 None hip pain Pertinent Findings pain at rest 05/21/2017 None hip pain Pertinent Findings pain with movement 05/21/2017 None hip pain Pertinent Findings weakness 05/21/2017 None hypertension Pertinent Findings Denies decreased energy 05/21/2017 None hypertension Pertinent Findings Denies anxiety 05/21/2017 None hypertension Onset and Resolution ongoing 11/20/2016 None hypertension Onset of Symptom during adulthood 11/20/2016 None hypertension Blood Pressure Values not checking blood pressure at home 11/20/2016 None hypertension Alleviating Factors medication 11/20/2016 None hypertension Pertinent Findings Denies dizziness 11/20/2016 None hypertension Pertinent Findings Denies dyspnea 11/20/2016 None hypertension Pertinent Findings Denies edema 11/20/2016 None hypertension Onset and Resolution ongoing 07/24/2016 None hypertension Onset of Symptom during adulthood 07/24/2016 None hypertension Blood Pressure Values not checking blood pressure at home 07/24/2016 None hypertension Alleviating Factors medication 07/24/2016 None hypertension Pertinent Findings Denies dizziness 07/24/2016 None hypertension Pertinent Findings Denies dyspnea 07/24/2016 None hypertension Pertinent Findings Denies edema 07/24/2016 None hypertension Onset and Resolution ongoing 01/24/2016 None hypertension Onset of Symptom during adulthood 01/24/2016 None hypertension Blood Pressure Values not checking blood pressure at home 01/24/2016 None hypertension Alleviating Factors medication 01/24/2016 None hypertension Pertinent Findings Denies dizziness 01/24/2016 None hypertension Pertinent Findings Denies dyspnea 01/24/2016 None hypertension Pertinent Findings Denies edema 01/24/2016 None Hospital Follow Up _ cardiac disease 10/20/2015 None Hospital Follow Up _ Other: chest pains 10/20/2015 None Hospital Follow Up Quality acute 10/20/2015 None Hospital Follow Up Onset and Resolution resolved 10/20/2015 None urinary retention/hesitancy Quality worsening 04/01/2015 None urinary retention/hesitancy Onset and Resolution ongoing 04/01/2015 None urinary retention/hesitancy Onset of Symptom 2 weeks ago 04/01/2015 None urinary retention/hesitancy Frequency of Episodes hourly 04/01/2015 None urinary retention/hesitancy Triggers no known associated factors 04/01/2015 None urinary retention/hesitancy Alleviating Factors activity 04/01/2015 urinating helps-had catheter placed Saturday -removed Saturday at Dr Mccormack's office -still passing blood clots urinary retention/hesitancy Pertinent Findings bladder pain 04/01/2015 intermittent urinary retention/hesitancy Pertinent Findings Denies fever 04/01/2015 None urinary retention/hesitancy Pertinent Findings Denies nausea 04/01/2015 None urinary retention/hesitancy Pertinent Findings urinary urgency 04/01/2015 None Advance Directives No Advance Directive data Encounters Encounter Performer Location Codes Date EST. PATIENT, LEVEL IV Diagnosis: Acute bronchitis due to other specified organisms[ICD10: J20.8] [facility] CPT-[facility]: 09281 06/24/2018 ([id number] EST. PATIENT, LEVEL IV Diagnosis: Essential (primary) hypertension[ICD10: I10] Diagnosis: Mixed hyperlipidemia[ICD10: E78.2] Diagnosis: Personal history of transient ischemic attack (TIA), and cerebral infarction without residual deficits[ICD10: Z86.73] Diagnosis: 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[ICD10: I63.59] [facility] CPT-4: 33978 05/26/2018 ([id number] EST. PATIENT, LEVEL IV Diagnosis: Essential (primary) hypertension[ICD10: I10] Diagnosis: Mixed hyperlipidemia[ICD10: E78.2] [facility] CPT-4: 39645 05/21/2017 ([id number]) [id number] EST. PATIENT, LEVEL IV Diagnosis: Essential (primary) hypertension[ICD10: I10] Diagnosis: Mixed hyperlipidemia[ICD10: E78.2] Susannah Dumont MD, [facility] CPT-4: 37313 11/20/2016 ([id number]) 46001 EST. 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 PATIENT, LEVEL III Diagnosis: Essential (primary) hypertension[ICD10: I10] Susannah Dumont MD, [facility] CPT-4: 37941 01/24/2016 ([id number]) 04324 EST. PATIENT, LEVEL III Diagnosis: Essential (primary) hypertension[ICD10: I10] Susannah Dumont MD, [facility] CPT-4: 87144 10/20/2015 ([id number]) OFFICE VISIT, NEW - LEVEL 3 Diagnosis: Essential (primary) hypertension[ICD10: I10] Diagnosis: Gross hematuria[ICD10: R31.0] Diagnosis: Anemia, unspecified[ICD10: D64.9] Yojana Dumont MD, [facility] CPT-4: 29436 04/01/2015 Plan of Care Planned Activity Notes Codes Status Date Patient Education: Patient Medication Summary Completed 09/23/2018 Appointment: Injection 09/11/2018 Patient Education: Patient Medication Summary Completed 09/11/2018 Visit Plan: Bronchitis - acute case of bronchitis identified. Pt has been given antibiotics, breathing treatments as appropriate, and pt has been instructed to call if symptoms are not improved, or if symptoms acutely worsen. 06/24/2018 Appointment: Lizzette Squires WPtel: [address] [place], [place] [phone] (15 min) Moderate 06/24/2018 Patient Education: Patient Medication Summary Completed 06/24/2018 [facility]ment[facility] [phone] [phone] (15 min) Moderate 05/27/2018 Visit Plan: Stroke - uncertain eitology - treated with TPAse - I have recommended [facility] - pt to continue with Plavix, aspirin, and antihypertensive and cholesterol lowering management. No residual post stroke weakness or deficits. Hypertension - well controlled - continue with current medications, continue with no added salt diet. Pt has been encouraged to exercise daily. The pt has been advised to call the office if there are any acute concerns about change in blood pressure readings at home. Hyperlipidemia - pt has been counseled about appropriate diet , exercise, and need for low fat food choices. I have discussed the need for the patient to take medications as prescribed. If the patient has negative side effects from the medication, they are to CALL the office and not abruptly discontinue the medication without discussion with a practitioner in the office. We will check labs in 3-6 months for follow up on the patient's chronic medical problem and to assure normal liver response to medications. 05/26/2018 App[facility]ment: [facility] [phone] [facility] (15 min) Moderate 05/26/2018 Patient Education: Patient Medication Summary Completed 05/26/2018 Patient Education: Cholesterol Management Completed 05/26/2018 Care Plan: Referral Order SNOMED-CT : [id number] Pending 05/26/2018 Visit Plan: Hypertension - well controlled - continue with current medications, continue with no added salt diet. Pt has been encouraged to exercise daily. The pt has been advised to call the office if there are any acute concerns about change in blood pressure readings at home. Hyperlipidemia - pt has been counseled about appropriate diet, exercise, and need for low fat food choices. I have discussed the need for the patient to take medications as prescribed. If the patient has negative side effects from the medication, they are to CALL the office and not abruptly discontinue the medication without discussion with a practitioner in the office. We will check labs in 3-6 months for follow up on the patient's chronic medical problem and to assure normal liver response to medications. 05/21/2017 Appointment: Susannah Dumont WPtel: [phone] [facility] (15 min) Moderate 05/21/2017 Patient Education: Patient Medication Summary Completed 05/21/2017 Visit Plan: Hypertension - well controlled - continue with current medications, continue with no added salt diet. Pt has been encouraged to exercise daily. The pt has been advised to call the office if there are any acute concerns about change in blood pressure readings at home. Hyperlipidemia - pt has been counseled about appropriate diet, exercise, and need for low fat food choices. I have discussed the need for the patient to take medications as prescribed. If the patient has negative side effects from the medication, they are to CALL the office and not abruptly discontinue the medication without discussion with a practitioner in the office. We will check labs in 3-6 months for follow up on the patient's chronic medical problem and to assure normal liver response to medications. 11/20/2016 [facility]ment: [phone] ([facility]) Moderate 11/20/2016 Patient Education: Patient Medication Summary Completed 11/20/2016 Visit Plan: Hypertension - well controlled - continue with current medications, continue with no added salt diet. Pt has been encouraged to exercise daily. The pt has been advised to call the office if there are any acute concerns about change in blood pressure readings at home. Hyperlipidemia - pt has been counseled about appropriate diet, exercise, and need for low fat food choices. I have discussed the need for the patient to take medications as prescribed. If the patient has negative side effects from the medication, they are to CALL the office and not abruptly discontinue the medication without discussion with a practitioner in the office. We will check labs in 3-6 months for follow up on the patient's chronic medical problem and to assure normal liver response to medications. muscle aches - stop statin x 1 week and start on coenzyme q10 07/24/2016 Patient Education: Patient Medication Summary Completed 07/24/2016 Appointment: Nurse Visit 02/01/2016 Patient Education: Patient Medication Summary Completed 02/01/2016 Visit Plan: Hypertension - well controlled - continue with current medications, continue with no added salt diet. Pt has been encouraged to exercise daily. The pt has been advised to call the office if there are any acute concerns about change in blood pressure readings at home. Cerumen impaction - unable to remove today due to severe obstruction. 01/24/2016 Appointment: Susannah Dumont WPtel: [phone] [facility] (15 min) Moderate 01/24/2016 Patient Education: Patient Medication Summary Completed 01/24/2016 Visit Plan: Hypertension - well controlled - continue with current medications, continue with no added salt diet. Pt has been encouraged to exercise daily. The pt has been advised to call the office if there are any acute concerns about change in blood pressure readings at home. 10/20/2015 Patient Education: Patient Medication Summary Completed 10/20/2015 Visit Plan: pt was a no-show 10/19/2015 Appointment: Susannah Dumont WPtel: [phone] [facility] (15 min) Moderate 10/19/2015 Patient Education: Patient Medication Summary Completed 10/19/2015 [facility]ment: [phone] [place] (15 min) Moderate 05/09/2015 Visit Plan: Hypertension - well controlled - continue with current medications, continue with no added salt diet. Pt has been encouraged to exercise daily. The pt has been advised to call the office if there are any acute concerns about change in blood pressure readings at home. Hematuria-HX of prostate cancer with TURP in 2011-seeing Dr Mccormack in [place] and following closely with them. Anemia-secondary to hematuria-check labs today 04/01/2015 Patient Education: Patient Medication Summary Completed 04/01/2015 Patient Education: Hypertension Completed 04/01/2015 Referral: [facility] Referral Appointment Requested Referral: [facility] 05/27 Referral info faxed. They will contact him to schedule an appt Appointment Requested Instructions Comment start on the coenzyme q10 - take daily hold the statin x 1 week then restart the statin at three times a week - but continue with the coenzyme q10 every day . Hypertension - well controlled - continue with current medications, continue with no added salt diet. Pt has been encouraged to exercise daily. The pt has been advised to call the office if there are any acute concerns about change in blood pressure readings at home. Hyperlipidemia - pt has been counseled about appropriate diet, exercise, and need for low fat food choices. I have discussed the need for the patient to take medications as prescribed. If the patient has negative side effects from the medication, they are to CALL the office and not abruptly discontinue the medication without discussion with a practitioner in the office. We will check labs in 3-6 months for follow up on the patient's chronic medical problem and to assure normal liver response to medications. muscle aches - stop statin x 1 week and start on coenzyme q10 . pt was a no-show . Hypertension - well controlled - continue with current medications, continue with no added salt diet. Pt has been encouraged to exercise daily. The pt has been advised to call the office if there are any acute concerns about change in blood pressure readings at home. Hyperlipidemia - pt has been counseled about appropriate diet, exercise, and need for low fat food choices. I have discussed the need for the patient to take medications as prescribed. If the patient has negative side effects from the medication, they are to CALL the office and not abruptly discontinue the medication without discussion with a practitioner in the office. We will check labs in 3-6 months for follow up on the patient's chronic medical problem and to assure normal liver response to medications. . Hypertension - well controlled - continue with current medications, continue with no added salt diet. Pt has been encouraged to exercise daily. The pt has been advised to call the office if there are any acute concerns about change in blood pressure readings at home. Hyperlipidemia - pt has been counseled about appropriate diet, exercise, and need for low fat food choices. I have discussed the need for the patient to take medications as prescribed. If the patient has negative side effects from the medication, they are to CALL the office and not abruptly discontinue the medication without discussion with a practitioner in the office. We will check labs in 3-6 months for follow up on the patient's chronic medical problem and to assure normal liver response to medications. . Hypertension - well controlled - continue with current medications, continue with no added salt diet. Pt has been encouraged to exercise daily. The pt has been advised to call the office if there are any acute concerns about change in blood pressure readings at home. . Hypertension - well controlled - continue with current medications, continue with no added salt diet. Pt has been encouraged to exercise daily. The pt has been advised to call the office if there are any acute concerns about change in blood pressure readings at home. Cerumen impaction - unable to remove today due to severe obstruction. steroid shot today start steroid pills (prednisone) tomorrow start antibiotic today. Bronchitis - acute case of bronchitis identified. Pt has been given antibiotics, breathing treatments as appropriate, and pt has been instructed to call if symptoms are not improved, or if symptoms acutely worsen. TAKE PROBIOTIC TWICE DAILY-SOME OF THE NAMES ARE [employer], [employer], [employer] CHECK LABS TODAY . Hypertension - well controlled - continue with current medications, continue with no added salt diet. Pt has been encouraged to exercise daily. The pt has been advised to call the office if there are any acute concerns about change in blood pressure readings at home. Hematuria-HX of prostate cancer with TURP in 2011-seeing Dr Mccormack in [place] and following closely with them. Anemia-secondary to hematuria-check labs today . Stroke - uncertain eitology - treated with TPAse - I have recommended referral to Dr. Mason - neurologist in [place] - pt to continue with Plavix, aspirin, and antihypertensive and cholesterol lowering management. No residual post stroke weakness or deficits. Hypertension - well controlled - continue with current medications, continue with no added salt diet. Pt has been encouraged to exercise daily. The pt has been advised to call the office if there are any acute concerns about change in blood pressure readings at home. Hyperlipidemia - pt has been counseled about appropriate diet, exercise, and need for low fat food choices. I have discussed the need for the patient to take medications as prescribed. If the patient has negative side effects from the medication, they are to CALL the office and not abruptly discontinue the medication without discussion with a practitioner in the office. We will check labs in 3-6 months for follow up on the patient's chronic medical problem and to assure normal liver response to medications.
--- OUTSIDE RECORDS SUMMARY | 2018-10-04 17:31 | XMS REPORT | CCD ---
Author Author Yojana Clark MD, [facility] Address [address] [place] [address] Phone Care Team Providers Care Can Pusher Name Role Phone PP Unavailable CCM Unavailable Summary Purpose Interface Exchange Insurance Providers Payer name Policy type / Coverage type Covered green party ID Effective Begin Date Effective End Date WPS Medicare Part B Medicare Part B [id number] Unknown Unknown [facility] Medicare Part B [id number] Unknown Unknown Family history Father Diagnosis Age At Onset Arthritis Unknown Hypertension Unknown Brother Diagnosis Age At Onset Cancer Unknown Heart Attack Unknown Mother Diagnosis Age At Onset Skin cancer Unknown Cancer Unknown Social History Social History Element Codes Description Effective Dates Marital status Unknown Amber 07/24/2016 Number of children Unknown 3 04/01/[address]: 7312767 Former smoker 1995 04/01/[address]: 593853240 Never drinks alcohol 04/01/2015 Allergies, Adverse Reactions, Alerts Substance Reaction Codes Entered Date Inactivated Date Status * NO KNOWN DRUG ALLERGIES Unknown 04/01/2015 No Inactive Date Active Past Medical History Illness Codes Condition Status Onset Date Resolved Date Anemia, unspecified ICD-9: 285.9 ICD-10: D64.9 Active 03/31/2015 Unknown Vitamin B12 deficiency anemia, unspecified ICD-9: 281.1 ICD-10: D51.9 Active 09/11/2018 Unknown Acute bronchitis due to other specified [...] Active 05/26/2018 Unknown 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 [...] Problems Condition Codes Effective Dates Condition Status Anemia, unspecified ICD-9: 285.9 ICD-10: D64.9 03/31/2015 Active Vitamin B12 deficiency anemia, unspecified ICD-9: 281.1 ICD-10: D51.9 09/11/2018 Active Acute bronchitis due to other specified [...] Z86.73 05/26/2018 Active 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 [...] (vit B-12) 1,000 mcg/mL injection solution RxNorm: 575738 Milliliter(s) Inj 09/11/2018 09/11/2018 Inactive Ativan 0.5 mg tablet RxNorm: 967703 1/2-1 Tablet(s) PO Q8 as needed 08/08/2018 No Stop Date Active Xanax 0.25 mg tablet RxNorm: 388779 1 Tablet(s) PO Q6 201808/07/2018 Inactive doxycycline hyclate 100 mg capsule RxNorm: 9995646 1 Capsule(s) PO BID 06/24/2018 07/03/2018 Inactive prednisone 20 mg tablet RxNorm: 738918 2 Tablet(s) PO daily 06/28/2018 Inactive Kenalog 40 mg/mL suspension for injection RxNorm: 1390289 Milliliter(s) Inj 06/24/2018 06/24/2018 Inactive coenzyme Q10 100 mg tablet RxNorm: 229541 1 Tablet(s) PO daily 07/24/2016 02/18/2017 Inactive Norvasc 5 mg tablet RxNorm: 263884 1 Tablet(s) PO daily No Start Date Active metoprolol tartrate 25 mg tablet RxNorm: 797159 1 Tablet(s) PO BID No Start Date Active Ranexa 500 mg tablet,extended release RxNorm: 476271 1 Tablet(s) PO BID No Start Date Active benazepril 10 mg tablet RxNorm: 132808 1 Tablet(s) PO daily No Start Date Active aspirin 81 mg capsule,delayed release RxNorm: 761152 1 Capsule(s) PO No Start Date Active turmeric root extract 500 mg capsule RxNorm: 3269499 Capsule(s) PO daily No Start Date 10/19/2015 Inactive Aleve 220 mg capsule RxNorm: 2037061 1 Capsule(s) PO daily No Start Date 10/19/2015 Inactive clopidogrel 75 mg tablet RxNorm: 865461 Tablet(s) PO daily No Start Date 01/23/2016 Inactive simvastatin 5 mg tablet RxNorm: 998271 1 Tablet(s) PO QHS No Start Date 05/20/2017 Inactive Ativan 0.5 mg tablet RxNorm: 122717 1/2-1 Tablet(s) PO Q8 as needed No Start Date 08/07/2018 Inactive Aleve PM 220 mg-25 mg tablet RxNorm: 6179175 1 Tablet(s) PO QHS No Start Date 01/23/2016 Inactive magnesium RxNorm: PO No Start Date 2015 Inactive Xanax 0.25 mg tablet RxNorm: 411579 1 Tablet(s) PO Q6 No Start Date 2018 Inactive Fish Oil 1,000 mg capsule RxNorm: 1 Capsule(s) PO daily No Start Date 10/19/2015 Inactive Vitamin D3 2,000 unit tablet RxNorm: 014603 1 Tablet(s) PO daily No Start Date 10/19/2015 Inactive pantoprazole 20 mg tablet,delayed release RxNorm: 334392 1 Tablet(s) PO daily No Start Date 01/23/2016 Inactive Osteo Bi-Flex 250 mg-200 mg tablet RxNorm: 910432 Tablet(s) PO No Start Date 11/19/2016 Inactive Medication Administered Medication Codes Instructions Start Date Status cyanocobalamin (vit B-12) 1,000 mcg/mL injection solution RxNorm: 536451 Milliliter 09/11/2018 Active Kenalog 40 mg/mL suspension for injection RxNorm: 2690799 Milliliter 06/24/2018 No longer Active Immunizations No Immunization data Assessments Condition Codes Effective Dates Vitamin B12 deficiency anemia, unspecified ICD-10: D51.9 ICD-9: 281.1 09/11/2018 Acute bronchitis due to other specified organisms [...] ICD-9: V12.54 05/26/2018 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 ICD-10: I25.10 [...] Item Item Code Result Date Comp Metabolic Qvv047 NA 136 mEq/L 07/25/2016 Comp Metabolic Kuf209 K 4.1 mEq/L 07/25/2016 Comp Metabolic Ies533 CL 102 mEq/L 07/25/2016 Comp Metabolic Htd948 CO2 26.0 mEq/L 07/25/2016 Comp Metabolic Bpm962 ANION GAP 12 07/25/2016 Comp Metabolic Ckc560 GLUCOSE 105 mg/dL 07/25/2016 Comp Metabolic Gln271 Creat 1.1 mg/dL 07/25/2016 Comp Metabolic Uae382 eGFR 67 ml/min/1.73m2 07/25/2016 Comp Metabolic Cgp718 BUN 20 mg/dL 07/25/2016 Comp Metabolic Xop585 B/C Ratio 17.9 Ratio 07/25/2016 Comp Metabolic Nom511 CALCIUM 8.8 mg/dL 07/25/2016 Comp Metabolic Jse198 ALK PHOS 71 U/L 07/25/2016 Comp Metabolic Jfw845 AST(SGOT) 14 U/L 07/25/2016 Comp Metabolic Kbl160 ALT(SGPT) 13 U/L 07/25/2016 Comp Metabolic Mhc957 BILI T 0.6 mg/dL 07/25/2016 Comp Metabolic Nri831 ALBUMIN 3.9 g/dL 07/25/2016 Comp Metabolic Jqu227 TPRO 6.4 g/dL 07/25/2016 Comp Metabolic Arl768 GLOB 2.5 g/dL 07/25/2016 Comp Metabolic Sgz928 A/G Ratio 1.5 Ratio 07/25/2016 Comp Metabolic Qgm982 Osmo 275 mOsmo 07/25/2016 Lipid Ord30 CHOL [...] 29.8 pg 07/25/2016 Cbc With Differential Ord2 [place]% 14.4 % 07/25/2016 Cbc With Differential Ord2 [...] 1.14 K/ul 07/25/2016 Cbc With Differential Ord2 [place] ABS# 0.8 K/ul 07/25/2016 Cbc With Differential [...] Ord2 RDW 14.9 % 04/01/2015 Comp Metabolic Qdq872 NA 124 mEq/L 04/01/2015 Comp Metabolic Lxz996 K 4.2 mEq/L 04/01/2015 Comp Metabolic Txj170 CL 93 mEq/L 04/01/2015 Comp Metabolic Wdt189 CO2 24.0 mEq/L 04/01/2015 Comp Metabolic Zbw729 ANION GAP 11 04/01/2015 Comp Metabolic Fzr472 GLUCOSE 103 mg/dL 04/01/2015 Comp Metabolic Euk083 Creat 1.0 mg/dL 04/01/2015 Comp Metabolic Jca978 eGFR 75 ml/min/1.73m2 04/01/2015 Comp Metabolic Pis275 BUN 13 mg/dL 04/01/2015 Comp Metabolic Qmp821 B/C Ratio 12.7 Ratio 04/01/2015 Comp Metabolic Blz715 CALCIUM 9.1 mg/dL 04/01/2015 Comp Metabolic Vrj969 ALK PHOS 65 U/L 04/01/2015 Comp Metabolic Ozr115 AST(SGOT) 15 U/L 04/01/2015 Comp Metabolic Tws966 ALT(SGPT) 15 U/L 04/01/2015 Comp Metabolic Afv379 BILI T 1.1 mg/dL 04/01/2015 Comp Metabolic Ufm416 ALBUMIN 4.0 g/dL 04/01/2015 Comp Metabolic Mgt818 TPRO 6.2 g/dL 04/01/2015 Comp Metabolic Snu818 GLOB 2.2 g/dL 04/01/2015 Comp Metabolic Egi857 A/G Ratio 1.8 Ratio 04/01/2015 Comp Metabolic Yce815 Osmo 250 mOsmo 04/01/2015 Review of Systems [...] Procedure Codes Date THER/PROPH/DIAG INJ SC/IM CPT-4: 19676 09/11/2018 VITAMIN B12 INJECTION CPT-4: J3420 09/11/2018 THER/PROPH/DIAG INJ SC/IM CPT-4: 27380 06/24/2018 TRIAMCINOLONE ACET INJ NOS CPT-4: J3301 06/24/2018 Vital Signs Date Vital 06/24/2018 Blood Pressure 1: 150/88 Code : 8480-6 BMI: 27.0 Code : 17299-1 Heart Rate 1 : 85 bpm Height: 5'10" SpO2: 98% Temperature: 36.8 (C) / 98.2 (F) Weight: 188 lbs 05/26/2018 Blood Pressure 1: 128/68 Code : 8480-6 BMI: 27.0 Code : 41240-1 Heart Rate 1 : 62 bpm Height: 5'10" SpO2: 99% Weight: 188 lbs 05/21/2017 Blood Pressure 1: 142/84 Code : 8480-6 BMI: 27.1 Code : 66012-7 Heart Rate 1 : 75 bpm Height: 5'10" SpO2: 97% Weight: 189 lbs 11/20/2016 Blood Pressure 1: 130/88 Code : 8480-6 BMI: 27.7 Code : 71327-1 Heart Rate 1 : 80 bpm Height: 5'10" SpO2: 95% Weight: 193 lbs 07/24/2016 Blood Pressure 1: 132/78 Code : 8480-6 BMI: 27.7 Code : 34058-8 Heart Rate 1 : 78 bpm Height: 5'10" SpO2: 98% Weight: 193 lbs 01/24/2016 Blood Pressure 1: 140/76 Code : 8480-6 BMI: 27.7 Code : 89864-2 Heart Rate 1 : 83 bpm Height: 5'10" SpO2: 95% Weight: 193 lbs 10/20/2015 Blood Pressure 1: 106/66 Code : 8480-6 BMI: 27.3 Code : 48060-8 Heart Rate 1 : 75 bpm Height: 5'10" SpO2: 97% Weight: 190 lbs 8 oz 10/19/2015 Height: 5'10" 04/01/2015 Blood Pressure 1: 118/62 Code : 8480-6 BMI: 27.0 Code : 88563-3 Heart Rate 1 : 77 bpm Height: [...] other specified organisms[ICD10: J20.8] Lizzette Dumont MD, [facility] CPT-4: 84606 06/24/2018 [id number]) [id number] EST. PATIENT, LEVEL IV Diagnosis: Essential (primary) hypertension[ICD10: I10] Diagnosis: Mixed hyperlipidemia[ICD10: E78.2] Diagnosis: Personal history of transient ischemic attack (TIA), and cerebral infarction without residual deficits[ICD10: Z86.73] Diagnosis: 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[ICD10: I63.59] Susannah Dumont MD, [facility] CPT-4: 44893 05/26/2018 [id number]) 73552 EST. PATIENT, LEVEL IV Diagnosis: Essential (primary) hypertension[ICD10: I10] Diagnosis: Mixed hyperlipidemia[ICD10: E78.2] Susannah Dumont MD, [facility] CPT-4: 66725 05/21/2017 [id number]) 53103 EST. PATIENT, LEVEL IV Diagnosis: Essential (primary) hypertension[ICD10: I10] Diagnosis: Mixed hyperlipidemia[ICD10: E78.2] Susannah Dumont MD, [facility] CPT-4: 35689 11/20/2016 [id number]) 75468 EST. 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 PATIENT, LEVEL III Diagnosis: Essential (primary) hypertension[ICD10: I10] [facility] CPT-4: 49266 01/24/2016 ([id number]) 55049 EST. PATIENT, LEVEL III Diagnosis: Essential (primary) hypertension[ICD10: I10] [facility] CPT-4: 43826 10/20/2015 ([id number]) OFFICE VISIT, NEW - LEVEL 3 Diagnosis: Essential (primary) hypertension[ICD10: I10] Diagnosis: Gross hematuria[ICD10: R31.0] Diagnosis: Anemia, unspecified[ICD10: D64.9] [facility] CPT-4: 83200 04/01/2015 Plan of Care Planned Activity Notes Codes Status Date Patient Education: Patient Medication Summary Completed 09/11/2018 Visit Plan: Bronchitis - acute case of bronchitis identified. Pt has been given antibiotics, breathing treatments as appropriate, and pt has been instructed to call if symptoms are not improved, or if symptoms acutely worsen. 06/24/2018 Appointment: Lizzette Squires WPtel: [address] [place], [place] [address] (15 min) Moderate 06/24/2018 Patient Education: Patient Medication Summary Completed 06/24/2018 Appointment: Yojana Clark WPtel: [address] [place] [phone] (15 min) Moderate 05/27/2018 Visit Plan: Stroke - uncertain eitology - treated with TPAse - I have recommended referral to Dr. Mason - neurologist in [place] - pt to continue with Plavix, aspirin, [...] to medications. 05/26/2018 Appointment: Susannah Dumont WPtel: [phone] [facility] (15 min) Moderate 05/26/2018 Patient Education: Patient Medication Summary Completed 05/26/2018 Patient Education: Cholesterol Management Completed 05/26/2018 Care Plan: Referral Order SNOMED-CT : [id number] Pending 05/26/2018 Visit Plan: Hypertension - well [...] medications. 05/21/2017 [facility]ment: [phone] ([facility] min) Moderate 05/21/2017 Patient Education: Patient [...] medications. 11/20/2016 Appointment: Susannah Dumont WPtel: [phone] [facility] (15 min) Moderate 11/20/2016 Patient Education: Patient [...] severe obstruction. 01/24/2016 Appointment: [phone] ([facility] min) Moderate 01/24/2016 Patient Education: Patient [...] a no-show 10/19/2015 Appointment: [phone] [place] (15 min) Moderate 10/19/2015 Patient Education: Patient Medication Summary Completed 10/19/2015 Appointment: [phone] [place] (15 min) Moderate 05/09/2015 Visit Plan: Hypertension - well controlled - continue with current medications, continue with no added salt diet. Pt has been encouraged to exercise daily. The pt has been advised to call the office if there are any acute concerns about change in blood pressure readings at home. Hematuria-HX of prostate cancer with TURP in 2011-seeing Dr Mccormack in [place] and following closely with them. Anemia-secondary to hematuria-check labs today 04/01/2015 Patient Education: Patient Medication Summary Completed 04/01/2015 Patient Education: Hypertension Completed 04/01/2015 Referral: [facility] Referral Appointment Requested Referral: [facility] 05/27 Referral info faxed. They will contact [...] PROBIOTIC TWICE DAILY-SOME OF THE NAMES ARE [employer], [place] CHECK LABS TODAY . Hypertension - well controlled - continue with current medications, continue with no added salt diet. Pt has been encouraged to exercise daily. The pt has been advised to call the office if there are any acute concerns about change in blood pressure readings at home. Hematuria-HX of prostate cancer with TURP in 2011-seeing Dr Mccormack in [place] and following closely with them. Anemia-secondary to hematuria-check labs today . Stroke - uncertain eitology - treated with TPAse - I have recommended referral to Dr. Mason - neurologist in [place] - pt to continue with Plavix, aspirin, [...]
--- OUTSIDE RECORDS SUMMARY | 2018-10-04 17:32 | XMS REPORT | CCD ---
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 Name Role Phone PP Unavailable CCM Unavailable Summary Purpose Interface Exchange Insurance Providers Payer name Policy type / Coverage type Covered libertarian ID Effective Begin Date Effective End Date WPS Medicare Part B Medicare Part B [id number] Unknown Unknown [facility] Medicare Part B [id number] Unknown Unknown Family history Father Diagnosis Age At Onset Arthritis Unknown Hypertension Unknown Brother Diagnosis Age At Onset Cancer Unknown Heart Attack Unknown Mother Diagnosis Age At Onset Skin cancer Unknown Cancer Unknown Social History Social History Element Codes Description Effective Dates Marital status Unknown Amber 07/24/2016 Number of children Unknown 3 04/01/[address]: 1825862 Former smoker 1995 04/01/[address]: 755305862 Never drinks alcohol 04/01/2015 Allergies, Adverse Reactions, Alerts Substance Reaction Codes Entered Date Inactivated Date Status * NO KNOWN DRUG ALLERGIES Unknown 04/01/2015 No Inactive Date Active Past Medical History Illness Codes Condition Status Onset Date Resolved Date Acute bronchitis due to other specified organisms [...] Active 05/26/2018 Unknown 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-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.00 ICD-10: I25.10 Active 07/24/2016 Unknown Impacted cerumen, right ear ICD-9: 380.4 ICD-10: H61.21 Active 01/31/2016 Unknown BPH Unknown Active 04/01/2015 Unknown carotid stenosis Unknown Active 04/01/2015 Unknown Hyperlipidemia Unknown Active 04/01/2015 Unknown Hypertension Unknown Active 04/01/2015 Unknown Anemia, unspecified ICD-9: 285.9 ICD-10: D64.9 Active 03/31/2015 Unknown Essential (primary) hypertension ICD-9: 401.9 ICD-10: I10 Active 03/31/2015 Unknown Gross hematuria ICD-9 : 599.71 ICD-10: R31.0 Active 03/31/2015 Unknown Problems Condition Codes Effective Dates Condition Status Acute bronchitis due to other specified organisms [...] Z86.73 05/26/2018 Active 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-9: 414.00 ICD-10: I25.10 07/24/2016 Active Impacted cerumen, right ear ICD-9: 380.4 ICD-10: H61.21 01/31/2016 Active BPH Unknown 04/01/2015 Active carotid stenosis Unknown 04/01/2015 Active Hyperlipidemia Unknown 04/01/2015 Active Hypertension Unknown 04/01/2015 Active Anemia, unspecified ICD-9: 285.9 ICD-10: D64.9 03/31/2015 Active Essential (primary) hypertension ICD-9: 401.9 ICD-10: I10 03/31/2015 Active Gross hematuria ICD-9 : 599.71 ICD-10: R31.0 03/31/2015 Active Medications Medication Codes Instructions Start Date Stop Date Status Fill Instructions Ativan 0.5 mg tablet RxNorm: 635216 1/2-1 Tablet(s) PO Q8 as needed 08/08/2018 No Stop Date Active Xanax 0.25 mg tablet RxNorm: 512487 1 Tablet(s) PO Q6 201808/07/2018 Inactive doxycycline hyclate 100 mg capsule RxNorm: 9452144 1 Capsule(s) PO BID 06/24/2018 07/03/2018 Inactive prednisone 20 mg tablet RxNorm: 340902 2 Tablet(s) PO daily 06/28/2018 Inactive Kenalog 40 mg/mL suspension for injection RxNorm: 6782383 Milliliter(s) Inj 06/24/2018 06/24/2018 Inactive coenzyme Q10 100 mg tablet RxNorm: 400305 1 Tablet(s) PO daily 07/24/2016 02/18/2017 Inactive Norvasc 5 mg tablet RxNorm: 307979 1 Tablet(s) PO daily No Start Date Active metoprolol tartrate 25 mg tablet RxNorm: 747057 1 Tablet(s) PO BID No Start Date Active Ranexa 500 mg tablet,extended release RxNorm: 086877 1 Tablet(s) PO BID No Start Date Active benazepril 10 mg tablet RxNorm: 756833 1 Tablet(s) PO daily No Start Date Active aspirin 81 mg capsule,delayed release RxNorm: 600097 1 Capsule(s) PO No Start Date Active turmeric root extract 500 mg capsule RxNorm: 2803142 Capsule(s) PO daily No Start Date 10/19/2015 Inactive Aleve 220 mg capsule RxNorm: 4647390 1 Capsule(s) PO daily No Start Date 10/19/2015 Inactive clopidogrel 75 mg tablet RxNorm: 025201 Tablet(s) PO daily No Start Date 01/23/2016 Inactive simvastatin 5 mg tablet RxNorm: 323815 1 Tablet(s) PO QHS No Start Date 05/20/2017 Inactive Ativan 0.5 mg tablet RxNorm: 435872 /2-1 Tablet(s) PO Q8 as needed No Start Date 08/07/2018 Inactive Aleve PM 220 mg-25 mg tablet RxNorm: 2603256 1 Tablet(s) PO QHS No Start Date 01/23/2016 Inactive magnesium RxNorm: PO No Start Date 2015 Inactive Xanax 0.25 mg tablet RxNorm: 371946 1 Tablet(s) PO Q6 No Start Date 2018 Inactive Fish Oil 1,000 mg capsule RxNorm: 1 Capsule(s) PO daily No Start Date 10/19/2015 Inactive Vitamin D3 2,000 unit tablet RxNorm: 210603 1 Tablet(s) PO daily No Start Date 10/19/2015 Inactive pantoprazole 20 mg tablet,delayed release RxNorm: 919117 1 Tablet(s) PO daily No Start Date 01/23/2016 Inactive Osteo Bi-Flex 250 mg-200 mg tablet RxNorm: 001454 Tablet(s) PO No Start Date 11/19/2016 Inactive Medication Administered Medication Codes Instructions Start Date Status Kenalog 40 mg/mL suspension for injection RxNorm: 7748938 Milliliter 06/24/2018 No longer Active Immunizations No Immunization data Assessments Condition Codes Effective Dates Acute bronchitis due to other specified organisms ICD-10: J20.8 ICD-9: 466.0 06/24/2018 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 ICD-10: I63.59 ICD-9: 434.91 05/26/2018 Essential (primary) hypertension ICD-10: I10 ICD-9: 401.1 05/26/2018 Personal history of transient ischemic attack (TIA), and cerebral infarction without residual deficits ICD-10: Z86.73 ICD-9: V12.54 05/26/2018 Mixed hyperlipidemia ICD-10: E78.2 ICD-9: 272.2 05/26/2018 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-10: I25.10 [...] Item Item Code Result Date Comp Metabolic Qvo558 NA 136 mEq/L 07/25/2016 Comp Metabolic Ufr443 K 4.1 mEq/L 07/25/2016 Comp Metabolic Eny000 CL 102 mEq/L 07/25/2016 Comp Metabolic Yju531 CO2 26.0 mEq/L 07/25/2016 Comp Metabolic Bsh562 ANION GAP 12 07/25/2016 Comp Metabolic Xdo211 GLUCOSE 105 mg/dL 07/25/2016 Comp Metabolic Urx407 Creat 1.1 mg/dL 07/25/2016 Comp Metabolic Bcu663 eGFR 67 ml/min/1.73m2 07/25/2016 Comp Metabolic Uce179 BUN 20 mg/dL 07/25/2016 Comp Metabolic Spv610 B/C Ratio 17.9 Ratio 07/25/2016 Comp Metabolic Ted004 CALCIUM 8.8 mg/dL 07/25/2016 Comp Metabolic Jnr194 ALK PHOS 71 U/L 07/25/2016 Comp Metabolic Rto834 AST(SGOT) 14 U/L 07/25/2016 Comp Metabolic Joe731 ALT(SGPT) 13 U/L 07/25/2016 Comp Metabolic Txw671 BILI T 0.6 mg/dL 07/25/2016 Comp Metabolic Wli868 ALBUMIN 3.9 g/dL 07/25/2016 Comp Metabolic Lia622 TPRO 6.4 g/dL 07/25/2016 Comp Metabolic Qif337 GLOB 2.5 g/dL 07/25/2016 Comp Metabolic Eha038 A/G Ratio 1.5 Ratio 07/25/2016 Comp Metabolic Qct262 Osmo 275 mOsmo 07/25/2016 Lipid Ord30 CHOL [...] 56.2 % 07/25/2016 Cbc With Differential Ord2 Lymph% 21.6 % 07/25/2016 Cbc With Differential Ord2 MCV 88.9 fl 07/25/2016 Cbc With Differential Ord2 MCH 29.8 pg 07/25/2016 Cbc With Differential Ord2 Gove% 14.4 % 07/25/2016 Cbc With Differential Ord2 MCHC 33.6 pg 07/25/2016 Cbc With Differential Ord2 Eos% 7.4 % 07/25/2016 Cbc With Differential Ord2 Baso% 0.4 % 07/25/2016 Cbc With Differential Ord2 PLT 215 K/ul 07/25/2016 Cbc With Differential Ord2 RDW 14.1 % 07/25/2016 Cbc With Differential Ord2 Neut ABS# 2.96 K/ul 07/25/2016 Cbc With Differential Ord2 Lymph ABS# 1.14 K/ul 07/25/2016 Cbc With Differential Ord2 Gove ABS# 0.8 K/ul 07/25/2016 Cbc With Differential [...] Ord2 RDW 14.9 % 04/01/2015 Comp Metabolic Qrf460 NA 124 mEq/L 04/01/2015 Comp Metabolic Vid994 K 4.2 mEq/L 04/01/2015 Comp Metabolic Koe645 CL 93 mEq/L 04/01/2015 Comp Metabolic Efu230 CO2 24.0 mEq/L 04/01/2015 Comp Metabolic Xtk885 ANION GAP 11 04/01/2015 Comp Metabolic Wys880 GLUCOSE 103 mg/dL 04/01/2015 Comp Metabolic Zwl003 Creat 1.0 mg/dL 04/01/2015 Comp Metabolic Ewm220 eGFR 75 ml/min/1.73m2 04/01/2015 Comp Metabolic Bmb902 BUN 13 mg/dL 04/01/2015 Comp Metabolic Gil845 B/C Ratio 12.7 Ratio 04/01/2015 Comp Metabolic Axy409 CALCIUM 9.1 mg/dL 04/01/2015 Comp Metabolic Mow702 ALK PHOS 65 U/L 04/01/2015 Comp Metabolic Xmo378 AST(SGOT) 15 U/L 04/01/2015 Comp Metabolic Ltm987 ALT(SGPT) 15 U/L 04/01/2015 Comp Metabolic Cuo016 BILI T 1.1 mg/dL 04/01/2015 Comp Metabolic Erj288 ALBUMIN 4.0 g/dL 04/01/2015 Comp Metabolic Xhw583 TPRO 6.2 g/dL 04/01/2015 Comp Metabolic Iyc028 GLOB 2.2 g/dL 04/01/2015 Comp Metabolic Cdj210 A/G Ratio 1.8 Ratio 04/01/2015 Comp Metabolic Omj689 Osmo 250 mOsmo 04/01/2015 Review of Systems [...] normal 06/24/2018 None Full Exam - General 1995 Ears/Nose/Throat otoscopic exam Overall: external auditory canals clear 06/24/2018 None Full Exam - General 1995 Ears/Nose/Throat otoscopic exam Tympanic membrane: air- fluid level 06/24/2018 None Full Exam - General 1995 Ears/Nose/Throat lips/teeth/gingiva Overall: benign lips 06/24/2018 None [...] Procedure Codes Date THER/PROPH/DIAG INJ SC/IM CPT-4: 88180 06/24/2018 TRIAMCINOLONE ACET INJ NOS CPT-4: J3301 06/24/2018 Vital Signs Date Vital 06/24/2018 Blood Pressure 1: 150/88 Code : 8480-6 BMI: 27.0 Code : 82459-0 Heart Rate 1 : 85 bpm Height: 5'10" SpO2: 98% Temperature: 36.8 (C) / 98.2 (F) Weight: 188 lbs 05/26/2018 Blood Pressure 1: 128/68 Code : 8480-6 BMI: 27.0 Code : 06221-0 Heart Rate 1 : 62 bpm Height: 5'10" SpO2: 99% Weight: 188 lbs 05/21/2017 Blood Pressure 1: 142/84 Code : 8480-6 BMI: 27.1 Code : 04458-3 Heart Rate 1 : 75 bpm Height: 5'10" SpO2: 97% Weight: 189 lbs 11/20/2016 Blood Pressure 1: 130/88 Code : 8480-6 BMI: 27.7 Code : 24975-1 Heart Rate 1 : 80 bpm Height: 5'10" SpO2: 95% Weight: 193 lbs 07/24/2016 Blood Pressure 1: 132/78 Code : 8480-6 BMI: 27.7 Code : 47538-9 Heart Rate 1 : 78 bpm Height: 5'10" SpO2: 98% Weight: 193 lbs 01/24/2016 Blood Pressure 1: 140/76 Code : 8480-6 BMI: 27.7 Code : 32770-5 Heart Rate 1 : 83 bpm Height: 5'10" SpO2: 95% Weight: 193 lbs 10/20/2015 Blood Pressure 1: 106/66 Code : 8480-6 BMI: 27.3 Code : 19711-6 Heart Rate 1 : 75 bpm Height: 5'10" SpO2: 97% Weight: 190 lbs 8 oz 10/19/2015 Height: 5'10" 04/01/2015 Blood Pressure 1: 118/62 Code : 8480-6 BMI: 27.0 Code : 80372-1 Heart Rate 1 : 77 bpm Height: [...] data Encounters Encounter Performer Location Codes Date 72362 EST. PATIENT, LEVEL IV Diagnosis: Acute bronchitis due to other specified organisms[ICD10: J20.8] [facility] CPT-4: 48272 06/24/2018 ([id number]) 51211 EST. PATIENT, LEVEL IV Diagnosis: Essential (primary) hypertension[ICD10: I10] Diagnosis: Mixed hyperlipidemia[ICD10: E78.2] Diagnosis: Personal history of transient ischemic attack (TIA), and cerebral infarction without residual deficits[ICD10: Z86.73] Diagnosis: 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[ICD10: I63.59] Susannah Dumont MD [facility] CPT-4: 60631 05/26/2018 ([id number]) 20904 EST. PATIENT, LEVEL IV Diagnosis: Essential (primary) hypertension[ICD10: I10] Diagnosis: Mixed hyperlipidemia[ICD10: E78.2] Susannah Dumont MD [facility] CPT-4: 57358 05/21/2017 ([id number]) 82892 EST. PATIENT, LEVEL IV Diagnosis: Essential (primary) hypertension[ICD10: I10] Diagnosis: Mixed hyperlipidemia[ICD10: E78.2] Susannah Dumont MD [facility] CPT-4: 53992 11/20/2016 ([id number]) 99828 EST. PATIENT, LEVEL IV Diagnosis: Essential (primary) hypertension[ICD10: I10] Diagnosis: Mixed hyperlipidemia[ICD10: E78.2] Diagnosis: Atherosclerotic heart disease of [place] coronary artery without angina pectoris[ICD10: I25.10] Susannah Dumont MD [facility] CPT-4: 61800 07/24/2016 ([id number]) Miscellaneous no charge Diagnosis: Impacted cerumen, right ear[ICD10: H61.21] Susannah Dumont MD [facility] CPT-4: 73819 02/01/2016 ([id number]) 04672 EST. PATIENT, LEVEL III Diagnosis: Essential (primary) hypertension[ICD10: I10] Susannah Dumont MD [facility] CPT-4: 10015 01/24/2016 ([id number]) 17688 EST. PATIENT, LEVEL III Diagnosis: Essential (primary) hypertension[ICD10: I10] Susannah Dumont MD [facility] CPT-4: 71404 10/20/2015 ([id number]) OFFICE VISIT, NEW - LEVEL 3 Diagnosis: Essential (primary) hypertension[ICD10: I10] Diagnosis: Gross hematuria[ICD10: R31.0] Diagnosis: Anemia, unspecified[ICD10: D64.9] Yojana Dumont MD, [facility] CPT-4: 89604 04/01/2015 Plan of Care Planned Activity Notes Codes Status Date Visit Plan: Bronchitis - acute case of bronchitis identified. Pt has been given antibiotics, breathing treatments as appropriate, and pt has been instructed to call if symptoms are not improved, or if symptoms acutely worsen. 06/24/2018 Appointment: Lizzette Squires WPtel: [phone] [facility] (15 min) Moderate 06/24/2018 Patient Education: Patient Medication Summary Completed 06/24/2018 Appointment: Yojana Clark WPtel: [phone] [phone] [place] (15 min) Moderate 05/27/2018 Visit Plan: Stroke - uncertain eitology - treated with TPAse - I have recommended referral to Dr. Mason - neurologist in [place] - pt to continue with Plavix, aspirin, [...] medications. 05/26/2018 Appointment: Susannah Dumont WPtel: [phone] [facility] (15 min) Moderate 05/26/2018 Patient Education: Patient Medication Summary Completed 05/26/2018 Patient Education: Cholesterol Management Completed 05/26/2018 Care Plan: Referral Order SNOMED-CT : [id number] Pending 05/26/2018 Visit Plan: Hypertension - well [...] to medications. 05/21/2017 [phone] (15 min) Moderate 05/21/2017 Patient Education: Patient [...] to medications. 11/20/2016 [facility]ment: [phone] [facility] (15 min) Moderate 11/20/2016 Patient Education: Patient [...] severe obstruction. 01/24/2016 Appointment: Susannah Dumont WPtel: [facility] (15 min) Moderate 01/24/2016 Patient Education: Patient [...] a no-show 10/19/2015 Appointment: Susannah Dumont WPtel: [facility] (15 min) Moderate 10/19/2015 Patient Education: Patient Medication Summary Completed 10/19/2015 Appointment: Susannah Dumont WPtel: [facility] (15 min) Moderate 05/09/2015 Visit Plan: Hypertension - well controlled - continue with current medications, continue with no added salt diet. Pt has been encouraged to exercise daily. The pt has been advised to call the office if there are any acute concerns about change in blood pressure readings at home. Hematuria-HX of prostate cancer with TURP in 2012-seeing Dr Mccormack in [place] and following closely with them. Anemia-secondary to hematuria-check labs today 04/01/2015 Patient Education: Patient Medication Summary Completed 04/01/2015 Patient Education: Hypertension Completed 04/01/2015 Referral: [facility] Referral Appointment Requested Referral: [facility] 05/27 Referral info faxed. They will contact [...] PROBIOTIC TWICE DAILY-SOME OF THE NAMES ARE Fiestah, Alaris CHECK LABS TODAY . Hypertension - well controlled - continue with current medications, continue with no added salt diet. Pt has been encouraged to exercise daily. The pt has been advised to call the office if there are any acute concerns about change in blood pressure readings at home. Hematuria-HX of prostate cancer with TURP in 2011-seeing Dr Mccormack in [place] and following closely with them. Anemia-secondary to hematuria-check labs today . Stroke - uncertain eitology - treated with TPAse - I have recommended referral to Dr. Mason - neurologist in [place] - pt to continue with Plavix, aspirin, [...]
--- OUTSIDE RECORDS SUMMARY | 2018-10-04 17:33 | XMS REPORT | CCD ---
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 Name Role Phone PP Unavailable CCM Unavailable Summary Purpose Interface Exchange Insurance Providers Payer name Policy type / Coverage type Covered democrat ID Effective Begin Date Effective End Date WPS Medicare Part B Medicare Part B [id number] Unknown Unknown [facility] Medicare Part B [id number] Unknown Unknown Family history Father Diagnosis Age At Onset Arthritis Unknown Hypertension Unknown Brother Diagnosis Age At Onset Cancer Unknown Heart Attack Unknown Mother Diagnosis Age At Onset Skin cancer Unknown Cancer Unknown Social History Social History Element Codes Description Effective Dates Marital status Unknown Amber 07/24/2016 Number of children Unknown 3 04/01/[address]: 8797695 Former smoker 1995 04/01/[address]: 667716919 Never drinks alcohol 04/01/2015 Allergies, Adverse Reactions, [...] Active 05/26/2018 Unknown 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: 414.00 [...] Z86.73 05/26/2018 Active 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: 414.00 [...] Start Date Stop Date Status Fill Instructions Xanax 0.25 mg tablet RxNorm: 822022 1 Tablet(s) PO Q6 2018 No Stop Date Active doxycycline hyclate 100 mg capsule RxNorm: 4737479 1 Capsule(s) PO BID 06/24/2018 07/03/2018 Inactive prednisone 20 mg tablet RxNorm: 669748 2 Tablet(s) PO daily 06/28/2018 Inactive Kenalog 40 mg/mL suspension for injection RxNorm: 2937152 Milliliter(s) Inj 06/24/2018 06/24/2018 Inactive coenzyme Q10 100 mg tablet RxNorm: 945360 1 Tablet(s) PO daily 07/24/2016 02/18/2017 Inactive Norvasc 5 mg tablet RxNorm: 409932 1 Tablet(s) PO daily No Start Date Active metoprolol tartrate 25 mg tablet RxNorm: 734283 1 Tablet(s) PO BID No Start Date Active Ranexa 500 mg tablet,extended release RxNorm: 752464 1 Tablet(s) PO BID No Start Date Active benazepril 10 mg tablet RxNorm: 280431 1 Tablet(s) PO daily No Start Date Active aspirin 81 mg capsule,delayed release RxNorm: 178965 1 Capsule(s) PO No Start Date Active turmeric root extract 500 mg capsule RxNorm: 4374313 Capsule(s) PO daily No Start Date 10/19/2015 Inactive Aleve 220 mg capsule RxNorm: 9428712 1 Capsule(s) PO daily No Start Date 10/19/2015 Inactive clopidogrel 75 mg tablet RxNorm: 969633 Tablet(s) PO daily No Start Date 01/23/2016 Inactive simvastatin 5 mg tablet RxNorm: 859837 1 Tablet(s) PO QHS No Start Date 05/20/2017 Inactive Aleve PM 220 mg-25 mg tablet RxNorm: 3622550 1 Tablet(s) PO QHS No Start Date 01/23/2016 Inactive magnesium RxNorm: PO No Start Date 2015 Inactive Xanax 0.25 mg tablet RxNorm: 753745 1 Tablet(s) PO Q6 No Start Date 2018 Inactive Fish Oil 1,000 mg capsule RxNorm: 1 Capsule(s) PO daily No Start Date 10/19/2015 Inactive Vitamin D3 2,000 unit tablet RxNorm: 773665 1 Tablet(s) PO daily No Start Date 10/19/2015 Inactive pantoprazole 20 mg tablet,delayed release RxNorm: 447393 1 Tablet(s) PO daily No Start Date 01/23/2016 Inactive Osteo Bi-Flex 250 mg-200 mg tablet RxNorm: 387412 Tablet(s) PO No Start Date 11/19/2016 Inactive Medication Administered Medication Codes Instructions Start Date Status Kenalog 40 mg/mL suspension for injection RxNorm: 3760672 Milliliter 06/24/2018 No longer Active Immunizations No Immunization data Assessments Condition Codes Effective Dates Acute bronchitis due to other specified organisms ICD-10: J20.8 ICD-9: 466.0 06/24/2018 Personal history of transient ischemic attack (TIA), and cerebral infarction without residual deficits ICD-10: Z86.73 ICD-9: V12.54 05/26/2018 Essential (primary) hypertension ICD-10: I10 ICD-9: 401.1 05/26/2018 Mixed hyperlipidemia ICD-10: E78.2 ICD-9: 272.2 05/26/2018 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 ICD-10: I63.59 ICD-9: 434.91 05/26/2018 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-10: I25.10 ICD-9: 414.00 07/24/2016 Impacted cerumen, right ear ICD-10: H61.21 ICD-9: 380.4 02/01/2016 Gross hematuria ICD-10: R31.0 ICD-9: 599.71 04/01/2015 Essential (primary) hypertension ICD-10: I10 ICD-9: 401.9 04/01/2015 Anemia, unspecified ICD-10: D64.9 ICD-9: 285.9 04/01/2015 Reason For Visit Reason For Visit Effective Dates Notes hypertension 06/24/2018 Hospital Follow Up 05/26/2018 hypertension 05/21/2017 left hip pain hypertension 11/20/2016 hypertension 07/24/2016 hypertension 01/24/2016 Hospital Follow Up 10/20/2015 Hospital Follow Up 10/19/2015 urinary retention/hesitancy 04/01/2015 has blood clots Results Observation Observation Code Item Item Code Result Date Comp Metabolic Qkc678 NA 136 mEq/L 07/25/2016 Comp Metabolic Lno576 K 4.1 mEq/L 07/25/2016 Comp Metabolic Rzf053 CL 102 mEq/L 07/25/2016 Comp Metabolic Zcd850 CO2 26.0 mEq/L 07/25/2016 Comp Metabolic Bix475 ANION GAP 12 07/25/2016 Comp Metabolic Tna633 GLUCOSE 105 mg/dL 07/25/2016 Comp Metabolic Pvt808 Creat 1.1 mg/dL 07/25/2016 Comp Metabolic Nmi970 eGFR 67 ml/min/1.73m2 07/25/2016 Comp Metabolic Lwu644 BUN 20 mg/dL 07/25/2016 Comp Metabolic Qxv496 B/C Ratio 17.9 Ratio 07/25/2016 Comp Metabolic Nbm976 CALCIUM 8.8 mg/dL 07/25/2016 Comp Metabolic Iuv699 ALK PHOS 71 U/L 07/25/2016 Comp Metabolic Euy199 AST(SGOT) 14 U/L 07/25/2016 Comp Metabolic Ano661 ALT(SGPT) 13 U/L 07/25/2016 Comp Metabolic Boy105 BILI T 0.6 mg/dL 07/25/2016 Comp Metabolic Rzt288 ALBUMIN 3.9 g/dL 07/25/2016 Comp Metabolic Mxu611 TPRO 6.4 g/dL 07/25/2016 Comp Metabolic Bvs731 GLOB 2.5 g/dL 07/25/2016 Comp Metabolic Ypf647 A/G Ratio 1.5 Ratio 07/25/2016 Comp Metabolic Ykn216 Osmo 275 mOsmo 07/25/2016 Lipid Ord30 CHOL [...] 21.6 % 07/25/2016 Cbc With Differential Ord2 [place]% 14.4 % 07/25/2016 Cbc With Differential Ord2 MCH 29.8 pg 07/25/2016 Cbc With Differential Ord2 Eos% 7.4 % 07/25/2016 Cbc With Differential Ord2 MCHC 33.6 pg 07/25/2016 Cbc With Differential Ord2 PLT 215 K/ul 07/25/2016 Cbc With Differential Ord2 Baso% 0.4 % 07/25/2016 Cbc With Differential Ord2 Neut ABS# 2.96 K/ul 07/25/2016 Cbc With Differential Ord2 RDW 14.1 % 07/25/2016 Cbc With Differential Ord2 Lymph ABS# 1.14 K/ul 07/25/2016 Cbc With Differential Ord2 [place] ABS# 0.8 K/ul 07/25/2016 Cbc With Differential Ord2 Eos ABS# 0.4 K/ul 07/25/2016 Cbc With Differential Ord2 Baso ABS# 0.0 K/ul 07/25/2016 Comp Metabolic Dse384 NA 124 mEq/L 04/01/2015 Comp Metabolic Ual915 K 4.2 mEq/L 04/01/2015 Comp Metabolic Dxa495 CL 93 mEq/L 04/01/2015 Comp Metabolic Pgg590 CO2 24.0 mEq/L 04/01/2015 Comp Metabolic Eqr206 ANION GAP 11 04/01/2015 Comp Metabolic Anh276 GLUCOSE 103 mg/dL 04/01/2015 Comp Metabolic Otp900 Creat 1.0 mg/dL 04/01/2015 Comp Metabolic Yre354 eGFR 75 ml/min/1.73m2 04/01/2015 Comp Metabolic Zsy607 BUN 13 mg/dL 04/01/2015 Comp Metabolic Nse869 B/C Ratio 12.7 Ratio 04/01/2015 Comp Metabolic Nhh132 CALCIUM 9.1 mg/dL 04/01/2015 Comp Metabolic Tgq242 ALK PHOS 65 U/L 04/01/2015 Comp Metabolic Wle421 AST(SGOT) 15 U/L 04/01/2015 Comp Metabolic Vgr211 ALT(SGPT) 15 U/L 04/01/2015 Comp Metabolic Icy585 BILI T 1.1 mg/dL 04/01/2015 Comp Metabolic Knf308 ALBUMIN 4.0 g/dL 04/01/2015 Comp Metabolic Cli442 TPRO 6.2 g/dL 04/01/2015 Comp Metabolic Rcz265 GLOB 2.2 g/dL 04/01/2015 Comp Metabolic Qwy630 A/G Ratio 1.8 Ratio 04/01/2015 Comp Metabolic Lgo254 Osmo 250 mOsmo 04/01/2015 Cbc With Differential Ord2 WBC 9.9 K/uL [...] With Differential Ord2 RDW 14.9 % 04/01/2015 Review of Systems System Result Effective [...] lips 06/24/2018 None Full Exam - General 1995 Ears/Nose/Throat oral cavity/pharynx/larynx Overall: oral mucosa clear 06/24/2018 None Full Exam - General 1995 Ears/Nose/Throat oral cavity/pharynx/larynx Posterior Pharynx: clear post [...] Procedure Codes Date THER/PROPH/DIAG INJ SC/IM CPT-4: 09475 06/24/2018 TRIAMCINOLONE ACET INJ NOS CPT-4: J3301 06/24/2018 Vital Signs Date Vital 06/24/2018 Blood Pressure 1: 150/88 Code : 8480-6 BMI: 27.0 Code : 89408-9 Heart Rate 1 : 85 bpm Height: 5'10" SpO2: 98% Temperature: 36.8 (C) / 98.2 (F) Weight: 188 lbs 05/26/2018 Blood Pressure 1: 128/68 Code : 8480-6 BMI: 27.0 Code : 04094-2 Heart Rate 1 : 62 bpm Height: 5'10" SpO2: 99% Weight: 188 lbs 05/21/2017 Blood Pressure 1: 142/84 Code : 8480-6 BMI: 27.1 Code : 51138-6 Heart Rate 1 : 75 bpm Height: 5'10" SpO2: 97% Weight: 189 lbs 11/20/2016 Blood Pressure 1: 130/88 Code : 8480-6 BMI: 27.7 Code : 96818-7 Heart Rate 1 : 80 bpm Height: 5'10" SpO2: 95% Weight: 193 lbs 07/24/2016 Blood Pressure 1: 132/78 Code : 8480-6 BMI: 27.7 Code : 66152-6 Heart Rate 1 : 78 bpm Height: 5'10" SpO2: 98% Weight: 193 lbs 01/24/2016 Blood Pressure 1: 140/76 Code : 8480-6 BMI: 27.7 Code : 08406-6 Heart Rate 1 : 83 bpm Height: 5'10" SpO2: 95% Weight: 193 lbs 10/20/2015 Blood Pressure 1: 106/66 Code : 8480-6 BMI: 27.3 Code : 13586-1 Heart Rate 1 : 75 bpm Height: 5'10" SpO2: 97% Weight: 190 lbs 8 oz 10/19/2015 Height: 5'10" 04/01/2015 Blood Pressure 1: 118/62 Code : 8480-6 BMI: 27.0 Code : 73987-2 Heart Rate 1 : 77 bpm Height: [...] data Encounters Encounter Performer Location Codes Date 10370 EST. PATIENT, LEVEL IV Diagnosis: Acute bronchitis due to other specified organisms[ICD10: J20.8] [facility] CPT-4: 13709 06/24/2018 [id number]) [id number] EST. PATIENT, LEVEL IV Diagnosis: Essential (primary) hypertension[ICD10: I10] Diagnosis: Mixed hyperlipidemia[ICD10: E78.2] Diagnosis: Personal history of transient ischemic attack (TIA), and cerebral infarction without residual deficits[ICD10: Z86.73] Diagnosis: 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[ICD10: I63.59] Susannah Dumont MD, [facility] CPT-4: 14825 05/26/2018 ([id number]) 98408 EST. PATIENT, LEVEL IV Diagnosis: Essential (primary) hypertension[ICD10: I10] Diagnosis: Mixed hyperlipidemia[ICD10: E78.2] Susannah Dumont MD, [facility] CPT-4: 57451 05/21/2017 ([id number]) 27642 EST. PATIENT, LEVEL IV Diagnosis: Essential (primary) hypertension[ICD10: I10] Diagnosis: Mixed hyperlipidemia[ICD10: E78.2] Susannah Dumont MD, [facility] CPT-4: 14481 11/20/2016 ([id number]) 42073 EST. PATIENT, LEVEL IV Diagnosis: Essential (primary) hypertension[ICD10: I10] Diagnosis: Mixed hyperlipidemia[ICD10: E78.2] Diagnosis: Atherosclerotic heart disease of [place] coronary artery without angina pectoris[ICD10: I25.10] Susannah Dumont MD, [facility] CPT-4: 32857 07/24/2016 ([id number]) Miscellaneous no charge Diagnosis: Impacted cerumen, right ear[ICD10: H61.21] Susannah Dumont MD, [facility] CPT-4: 77537 02/01/2016 ([id number]) 75684 EST. PATIENT, LEVEL III Diagnosis: Essential (primary) hypertension[ICD10: I10] Susannah Dumont MD, [facility] CPT-4: 55344 01/24/2016 ([id number]) 84313 EST. PATIENT, LEVEL III Diagnosis: Essential (primary) hypertension[ICD10: I10] Susannah Dumont MD, [facility] CPT-4: 08737 10/20/2015 ([id number]) OFFICE VISIT, NEW - LEVEL 3 Diagnosis: Essential (primary) hypertension[ICD10: I10] Diagnosis: Gross hematuria[ICD10: R31.0] Diagnosis: Anemia, unspecified[ICD10: D64.9] Yojana Dumont MD, [facility] CPT-4: 38354 04/01/2015 Plan of Care Planned Activity Notes Codes Status Date Visit Plan: Bronchitis - acute case of bronchitis identified. Pt has been given antibiotics, breathing treatments as appropriate, and pt has been instructed to call if symptoms are not improved, or if symptoms acutely worsen. 06/24/2018 [facility]ment[phone] (15 min) Moderate 06/24/2018 Patient Education: Patient Medication Summary Completed 06/24/2018 Appointment: Yojana Clark WPtel: [phone] [phone] [place] (15 min) Moderate 05/27/2018 Visit Plan: Stroke - uncertain eitology - treated with TPAse - I have recommended referral to Dr. Mason - neurologist in [place] - pt to continue with Plavix, aspirin, [...] to medications. 05/26/2018 [facility]ment[facility] [phone] [facility] (15 min) Moderate 05/26/2018 Patient Education: Patient Medication Summary Completed 05/26/2018 Patient Education: Cholesterol Management Completed 05/26/2018 Care Plan: Referral Order SNOMED-CT : [id number] Pending 05/26/2018 Visit Plan: Hypertension - well [...] medications. 05/21/2017 Appointment: Susannah Dumont WPtel: [phone] [facility] (15 min) Moderate 05/21/2017 Patient Education: [...] to medications. 11/20/2016 App[facility]ment: [facility] [phone] [facility] (15 min) Moderate 11/20/2016 Patient Education: Patient [...] severe obstruction. 01/24/2016 Appointment: Susannah Dumont [facility]el: [facility] [address] [facility] (15 min) Moderate 01/24/2016 Patient Education: Patient [...] a no-show 10/19/2015 Appointment: Susannah Dumont WPtel: [facility] [address] [facility] (15 min) Moderate 10/19/2015 Patient Education: Patient Medication Summary Completed 10/19/2015 Appointment: Susannah Dumont WPtel: [address] [place], [place] [phone] (15 min) Moderate 05/09/2015 Visit Plan: Hypertension - well controlled - continue with current medications, continue with no added salt diet. Pt has been encouraged to exercise daily. The pt has been advised to call the office if there are any acute concerns about change in blood pressure readings at home. Hematuria-HX of prostate cancer with TURP in 2011-seeing Dr Mccormack in [place] and following closely with them. Anemia-secondary to hematuria-check labs today 04/01/2015 Patient Education: Patient Medication Summary Completed 04/01/2015 Patient Education: Hypertension Completed 04/01/2015 Referral: [facility] Referral Appointment Requested Referral: [facility] 05/27 Referral info faxed. They [...] PROBIOTIC TWICE DAILY-SOME OF THE NAMES ARE [employer], [employer] CHECK LABS TODAY . Hypertension - well controlled - continue with current medications, continue with no added salt diet. Pt has been encouraged to exercise daily. The pt has been advised to call the office if there are any acute concerns about change in blood pressure readings at home. Hematuria-HX of prostate cancer with TURP in 2011-seeing Dr Mccormack in [place] and following closely with them. Anemia-secondary to hematuria-check labs today . Stroke - uncertain eitology - treated with TPAse - I have recommended referral to Dr. Mason - neurologist in [place] - pt to continue with Plavix, aspirin, [...]
--- OUTSIDE RECORDS SUMMARY | 2018-10-04 17:34 | XMS REPORT | CCD ---
Author Author Yojana Clark MD, [facility] Address [address] [place] [address] Phone Care Team Providers Care Infection Preventionist Name Role Phone PP Unavailable CCM Unavailable Summary Purpose Interface Exchange Insurance Providers Payer name Policy type / Coverage type Covered alliance party ID Effective Begin Date Effective End Date WPS Medicare Part B Medicare Part B [id number] Unknown Unknown [facility] Medicare Part B [id number] Unknown Unknown Family history Father Diagnosis Age At Onset Arthritis Unknown Hypertension Unknown Brother Diagnosis Age At Onset Cancer Unknown Heart Attack Unknown Mother Diagnosis Age At Onset Skin cancer Unknown Cancer Unknown Social History Social History Element Codes Description Effective Dates Marital status Unknown Amber 07/24/2016 Number of children Unknown 3 04/01/[address]: 4262359 Former smoker 1995 04/01/[address]: 389748565 Never drinks alcohol 04/01/2015 Allergies, Adverse Reactions, [...] Start Date Stop Date Status Fill Instructions doxycycline hyclate 100 mg capsule RxNorm: 8722571 1 Capsule(s) PO BID 06/24/2018 07/03/2018 Active prednisone 20 mg tablet RxNorm: 597565 2 Tablet(s) PO daily 06/28/2018 Inactive Kenalog 40 mg/mL suspension for injection RxNorm: 7908071 Milliliter(s) Inj 06/24/2018 06/24/2018 Inactive coenzyme Q10 100 mg tablet RxNorm: 555114 1 Tablet(s) PO daily 07/24/2016 02/18/2017 Inactive Norvasc 5 mg tablet RxNorm: 953772 1 Tablet(s) PO daily No Start Date Active metoprolol tartrate 25 mg tablet RxNorm: 397562 1 Tablet(s) PO BID No Start Date Active Xanax 0.25 mg tablet RxNorm: 718932 1 Tablet(s) PO Q6 No Start Date Active Ranexa 500 mg tablet,extended release RxNorm: 595682 1 Tablet(s) PO BID No Start Date Active benazepril 10 mg tablet RxNorm: 082647 1 Tablet(s) PO daily No Start Date Active aspirin 81 mg capsule,delayed release RxNorm: 300347 1 Capsule(s) PO No Start Date Active turmeric root extract 500 mg capsule RxNorm: 9276086 Capsule(s) PO daily No Start Date 10/19/2015 Inactive Aleve 220 mg capsule RxNorm: 1904017 1 Capsule(s) PO daily No Start Date 10/19/2015 Inactive clopidogrel 75 mg tablet RxNorm: 410531 Tablet(s) PO daily No Start Date 01/23/2016 Inactive simvastatin 5 mg tablet RxNorm: 295428 1 Tablet(s) PO QHS No Start Date 05/20/2017 Inactive Aleve PM 220 mg-25 mg tablet RxNorm: 6394449 1 Tablet(s) PO QHS No Start Date 01/23/2016 Inactive magnesium RxNorm: PO No Start Date 2015 Inactive Fish Oil 1,000 mg capsule RxNorm: 1 Capsule(s) PO daily No Start Date 10/19/2015 Inactive Vitamin D3 2,000 unit tablet RxNorm: 424153 1 Tablet(s) PO daily No Start Date 10/19/2015 Inactive pantoprazole 20 mg tablet,delayed release RxNorm: 318563 1 Tablet(s) PO daily No Start Date 01/23/2016 Inactive Osteo Bi-Flex 250 mg-200 mg tablet RxNorm: 821126 Tablet(s) PO No Start Date 11/19/2016 Inactive Medication Administered Medication Codes Instructions Start Date Status Kenalog 40 mg/mL suspension for injection RxNorm: 9657700 Milliliter 06/24/2018 No longer Active Immunizations No [...] ICD-9: 434.91 05/26/2018 Atherosclerotic heart disease of [place] coronary [...] Item Item Code Result Date Comp Metabolic Lsx353 NA 136 mEq/L 07/25/2016 Comp Metabolic Shx571 K 4.1 mEq/L 07/25/2016 Comp Metabolic Roc902 CL 102 mEq/L 07/25/2016 Comp Metabolic Qib354 CO2 26.0 mEq/L 07/25/2016 Comp Metabolic Ycy830 ANION GAP 12 07/25/2016 Comp Metabolic Usw674 GLUCOSE 105 mg/dL 07/25/2016 Comp Metabolic Svh940 Creat 1.1 mg/dL 07/25/2016 Comp Metabolic Ope862 eGFR 67 ml/min/1.73m2 07/25/2016 Comp Metabolic Kas173 BUN 20 mg/dL 07/25/2016 Comp Metabolic Egt908 B/C Ratio 17.9 Ratio 07/25/2016 Comp Metabolic Brn556 CALCIUM 8.8 mg/dL 07/25/2016 Comp Metabolic Txo303 ALK PHOS 71 U/L 07/25/2016 Comp Metabolic Oiw079 AST(SGOT) 14 U/L 07/25/2016 Comp Metabolic Dtr032 ALT(SGPT) 13 U/L 07/25/2016 Comp Metabolic Nha933 BILI T 0.6 mg/dL 07/25/2016 Comp Metabolic Huo422 ALBUMIN 3.9 g/dL 07/25/2016 Comp Metabolic Mdn391 TPRO 6.4 g/dL 07/25/2016 Comp Metabolic Tqj083 GLOB 2.5 g/dL 07/25/2016 Comp Metabolic Qba308 A/G Ratio 1.5 Ratio 07/25/2016 Comp Metabolic Hwg110 Osmo 275 mOsmo 07/25/2016 Lipid Ord30 CHOL [...] 88.9 fl 07/25/2016 Cbc With Differential Ord2 [place]% 14.4 % 07/25/2016 Cbc With Differential Ord2 MCH 29.8 pg 07/25/2016 Cbc With Differential Ord2 MCHC 33.6 pg 07/25/2016 Cbc With Differential Ord2 Eos% 7.4 % 07/25/2016 Cbc With Differential Ord2 PLT 215 K/ul 07/25/2016 Cbc With Differential Ord2 Baso% 0.4 % 07/25/2016 Cbc With Differential Ord2 RDW 14.1 % 07/25/2016 Cbc With Differential Ord2 Neut ABS# 2.96 K/ul 07/25/2016 Cbc With Differential Ord2 Lymph ABS# 1.14 K/ul 07/25/2016 Cbc With Differential Ord2 [place] ABS# 0.8 K/ul 07/25/2016 Cbc With Differential [...] Ord2 RDW 14.9 % 04/01/2015 Comp Metabolic Gzl603 NA 124 mEq/L 04/01/2015 Comp Metabolic Pqf276 K 4.2 mEq/L 04/01/2015 Comp Metabolic Ibl587 CL 93 mEq/L 04/01/2015 Comp Metabolic Jnd986 CO2 24.0 mEq/L 04/01/2015 Comp Metabolic Acx643 ANION GAP 11 04/01/2015 Comp Metabolic Rvp618 GLUCOSE 103 mg/dL 04/01/2015 Comp Metabolic Qew547 Creat 1.0 mg/dL 04/01/2015 Comp Metabolic Tuj605 eGFR 75 ml/min/1.73m2 04/01/2015 Comp Metabolic Tol640 BUN 13 mg/dL 04/01/2015 Comp Metabolic Jec057 B/C Ratio 12.7 Ratio 04/01/2015 Comp Metabolic Hik272 CALCIUM 9.1 mg/dL 04/01/2015 Comp Metabolic Fap897 ALK PHOS 65 U/L 04/01/2015 Comp Metabolic Afo516 AST(SGOT) 15 U/L 04/01/2015 Comp Metabolic Stv001 ALT(SGPT) 15 U/L 04/01/2015 Comp Metabolic Yld180 BILI T 1.1 mg/dL 04/01/2015 Comp Metabolic Bqz868 ALBUMIN 4.0 g/dL 04/01/2015 Comp Metabolic Awt323 TPRO 6.2 g/dL 04/01/2015 Comp Metabolic Flq922 GLOB 2.2 g/dL 04/01/2015 Comp Metabolic Vcs578 A/G Ratio 1.8 Ratio 04/01/2015 Comp Metabolic Gvb991 Osmo 250 mOsmo 04/01/2015 Review of Systems [...] Procedure Codes Date THER/PROPH/DIAG INJ SC/IM CPT-4: 40209 06/24/2018 TRIAMCINOLONE ACET INJ NOS CPT-4: J3301 06/24/2018 Vital Signs Date Vital 06/24/2018 Blood Pressure 1: 150/88 Code : 8480-6 BMI: 27.0 Code : 75284-7 Heart Rate 1 : 85 bpm Height: 5'10" SpO2: 98% Temperature: 36.8 (C) / 98.2 (F) Weight: 188 lbs 05/26/2018 Blood Pressure 1: 128/68 Code : 8480-6 BMI: 27.0 Code : 42028-6 Heart Rate 1 : 62 bpm Height: 5'10" SpO2: 99% Weight: 188 lbs 05/21/2017 Blood Pressure 1: 142/84 Code : 8480-6 BMI: 27.1 Code : 34413-7 Heart Rate 1 : 75 bpm Height: 5'10" SpO2: 97% Weight: 189 lbs 11/20/2016 Blood Pressure 1: 130/88 Code : 8480-6 BMI: 27.7 Code : 17470-5 Heart Rate 1 : 80 bpm Height: 5'10" SpO2: 95% Weight: 193 lbs 07/24/2016 Blood Pressure 1: 132/78 Code : 8480-6 BMI: 27.7 Code : 27930-0 Heart Rate 1 : 78 bpm Height: 5'10" SpO2: 98% Weight: 193 lbs 01/24/2016 Blood Pressure 1: 140/76 Code : 8480-6 BMI: 27.7 Code : 27766-3 Heart Rate 1 : 83 bpm Height: 5'10" SpO2: 95% Weight: 193 lbs 10/20/2015 Blood Pressure 1: 106/66 Code : 8480-6 BMI: 27.3 Code : 94175-6 Heart Rate 1 : 75 bpm Height: 5'10" SpO2: 97% Weight: 190 lbs 8 oz 10/19/2015 Height: 5'10" 04/01/2015 Blood Pressure 1: 118/62 Code : 8480-6 BMI: 27.0 Code : 37160-5 Heart Rate 1 : 77 bpm Height: [...] organisms[ICD10: J20.8] [facility] CPT-4: 73711 06/24/2018 ([id number]) 36502 EST. PATIENT, LEVEL IV Diagnosis: Essential (primary) hypertension[ICD10: I10] Diagnosis: Mixed hyperlipidemia[ICD10: E78.2] Diagnosis: Personal history of transient ischemic attack (TIA), and cerebral infarction without residual deficits[ICD10: Z86.73] Diagnosis: 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[ICD10: I63.59] [facility] CPT-4: 51657 05/26/2018 ([id number]) 14695 EST. PATIENT, LEVEL IV Diagnosis: Essential (primary) hypertension[ICD10: I10] Diagnosis: Mixed hyperlipidemia[ICD10: E78.2] Susannah Dumont MD [facility] CPT-4: 22927 05/21/2017 ([id number]) 72049 EST. PATIENT, LEVEL IV Diagnosis: Essential (primary) hypertension[ICD10: I10] Diagnosis: Mixed hyperlipidemia[ICD10: E78.2] Susannah Dumont MD [facility] CPT-4: 59327 11/20/2016 ([id number]) 85690 EST. 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 PATIENT, LEVEL III Diagnosis: Essential (primary) hypertension[ICD10: I10] Susannah Dumont MD [facility] CPT-4: 06015 01/24/2016 ([id number]) 46937 EST. PATIENT, LEVEL III Diagnosis: Essential (primary) hypertension[ICD10: I10] Susannah Dumont MD, [facility] CPT-4: 06967 10/20/2015 ([id number]) OFFICE VISIT, NEW - LEVEL 3 Diagnosis: Essential (primary) hypertension[ICD10: I10] Diagnosis: Gross hematuria[ICD10: R31.0] Diagnosis: Anemia, unspecified[ICD10: D64.9] Yojana Dumont MD, [facility] CPT-4: 54883 04/01/2015 Plan of Care Planned Activity Notes Codes Status Date Visit Plan: Bronchitis - acute case of bronchitis identified. Pt has been given antibiotics, breathing treatments as appropriate, and pt has been instructed to call if symptoms are not improved, or if symptoms acutely worsen. 06/24/2018 Appointment: Lizzette Squires WPtel: [phone] [facility] (15 min) Moderate 06/24/2018 Patient Education: Patient Medication Summary Completed 06/24/2018 Appointment: Yojana Clark WPtel: [phone] [phone] (15 min) Moderate 05/27/2018 Visit Plan: Stroke - uncertain eitology - treated with TPAse - I have recommended referral to Dr. Mason - neurologist in [place] - pt to continue with Plavix, aspirin, [...] medications. 05/26/2018 Appointment: Susannah Dumont WPtel: [phone] [facility] [address] (15 min) Moderate 05/26/2018 Patient Education: Patient Medication Summary Completed 05/26/2018 Patient Education: Cholesterol Management Completed 05/26/2018 Care Plan: Referral Order SNOMED-CT : [id number] Pending 05/26/2018 Visit Plan: Hypertension - well [...] medications. 05/21/2017 Appointment: Susannah Dumont WPtel: [phone] [facility] [address] (15 min) Moderate 05/21/2017 Patient Education: Patient [...] to medications. 11/20/2016 Appointment: [phone] (15 min) Moderate 11/20/2016 Patient Education: Patient [...] due to severe obstruction. 01/24/2016 Appointment: Susannah uDmont WPtel: [phone] [facility] [address] (15 min) Moderate 01/24/2016 Patient Education: Patient [...] a no-show 10/19/2015 Appointment: Susannah Dumont WPtel: [phone] [facility] [address] [place] (15 min) Moderate 10/19/2015 Patient Education: Patient Medication Summary Completed 10/19/2015 Appointment: Susannah Dumont WPtel: [phone] [facility] [address] (15 min) Moderate 05/09/2015 Visit Plan: Hypertension - well controlled - continue with current medications, continue with no added salt diet. Pt has been encouraged to exercise daily. The pt has been advised to call the office if there are any acute concerns about change in blood pressure readings at home. Hematuria-HX of prostate cancer with TURP in 2011-seeing Dr Mccormack in [place] and following closely with them. Anemia-secondary to hematuria-check labs today 04/01/2015 Patient Education: Patient Medication Summary Completed 04/01/2015 Patient Education: Hypertension Completed 04/01/2015 Referral: [facility] Referral Appointment Requested Referral: [facility] 05/27 Referral info faxed. They will contact [...] PROBIOTIC TWICE DAILY-SOME OF THE NAMES ARE Piki, [employer] CHECK LABS TODAY . Hypertension - well controlled - continue with current medications, continue with no added salt diet. Pt has been encouraged to exercise daily. The pt has been advised to call the office if there are any acute concerns about change in blood pressure readings at home. Hematuria-HX of prostate cancer with TURP in 2011-seeing Dr Mccormack in [place] and following closely with them. Anemia-secondary to hematuria-check labs today . Stroke - uncertain eitology - treated with TPAse - I have recommended referral to Dr. Mason - neurologist in [place] - pt to continue with Plavix, aspirin, [...]
--- OUTSIDE RECORDS SUMMARY | 2018-10-04 17:35 | XMS REPORT | CCD ---
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 Name Role Phone PP Unavailable CCM Unavailable Summary Purpose Interface Exchange Insurance Providers Payer name Policy type / Coverage type Covered green party ID Effective Begin Date Effective End Date WPS Medicare Part B Medicare Part B [id number] Unknown Unknown [facility] Medicare Part B [id number] Unknown Unknown Family history Father Diagnosis Age At Onset Arthritis Unknown Hypertension Unknown Brother Diagnosis Age At Onset Cancer Unknown Heart Attack Unknown Mother Diagnosis Age At Onset Skin cancer Unknown Cancer Unknown Social History Social History Element Codes Description Effective Dates Marital status Unknown Amber 07/24/2016 Number of children Unknown 3 04/01/[address]: 9691999 Former smoker 1995 04/01/[address]: 767669454 Never drinks alcohol 04/01/2015 Allergies, Adverse Reactions, [...] Active 05/26/2018 Unknown 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 [...] Z86.73 05/26/2018 Active 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 [...] Instructions doxycycline hyclate 100 mg capsule RxNorm: 0617481 1 Capsule(s) PO BID 06/24/2018 07/03/2018 Active prednisone 20 mg tablet RxNorm: 785483 2 Tablet(s) PO daily 06/28/2018 Active Kenalog 40 mg/mL suspension for injection RxNorm: 3457624 Milliliter(s) Inj 06/24/2018 06/24/2018 Inactive coenzyme Q10 100 mg tablet RxNorm: 253405 1 Tablet(s) PO daily 07/24/2016 02/18/2017 Inactive Norvasc 5 mg tablet RxNorm: 070106 1 Tablet(s) PO daily No Start Date Active metoprolol tartrate 25 mg tablet RxNorm: 993105 1 Tablet(s) PO BID No Start Date Active Xanax 0.25 mg tablet RxNorm: 275246 1 Tablet(s) PO Q6 No Start Date Active Ranexa 500 mg tablet,extended release RxNorm: 674067 1 Tablet(s) PO BID No Start Date Active benazepril 10 mg tablet RxNorm: 295693 1 Tablet(s) PO daily No Start Date Active aspirin 81 mg capsule,delayed release RxNorm: 784869 1 Capsule(s) PO No Start Date Active turmeric root extract 500 mg capsule RxNorm: 7470578 Capsule(s) PO daily No Start Date 10/19/2015 Inactive Aleve 220 mg capsule RxNorm: 5059164 1 Capsule(s) PO daily No Start Date 10/19/2015 Inactive clopidogrel 75 mg tablet RxNorm: 114702 Tablet(s) PO daily No Start Date 01/23/2016 Inactive simvastatin 5 mg tablet RxNorm: 758260 1 Tablet(s) PO QHS No Start Date 05/20/2017 Inactive Aleve PM 220 mg-25 mg tablet RxNorm: 1254975 1 Tablet(s) PO QHS No Start Date 01/23/2016 Inactive magnesium RxNorm: PO No Start Date 2015 Inactive Fish Oil 1,000 mg capsule RxNorm: 1 Capsule(s) PO daily No Start Date 10/19/2015 Inactive Vitamin D3 2,000 unit tablet RxNorm: 679457 1 Tablet(s) PO daily No Start Date 10/19/2015 Inactive pantoprazole 20 mg tablet,delayed release RxNorm: 448439 1 Tablet(s) PO daily No Start Date 01/23/2016 Inactive Osteo Bi-Flex 250 mg-200 mg tablet RxNorm: 472024 Tablet(s) PO No Start Date 11/19/2016 Inactive Medication Administered Medication Codes Instructions Start Date Status Kenalog 40 mg/mL suspension for injection RxNorm: 9004292 Milliliter 06/24/2018 No longer Active Immunizations No [...] ICD-9: V12.54 05/26/2018 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 [...] Item Item Code Result Date Comp Metabolic Gof611 NA 136 mEq/L 07/25/2016 Comp Metabolic Zsc767 K 4.1 mEq/L 07/25/2016 Comp Metabolic Yev921 CL 102 mEq/L 07/25/2016 Comp Metabolic Uvq925 CO2 26.0 mEq/L 07/25/2016 Comp Metabolic Fpb156 ANION GAP 12 07/25/2016 Comp Metabolic Omm661 GLUCOSE 105 mg/dL 07/25/2016 Comp Metabolic Xdf896 Creat 1.1 mg/dL 07/25/2016 Comp Metabolic Sfl528 eGFR 67 ml/min/1.73m2 07/25/2016 Comp Metabolic Btm940 BUN 20 mg/dL 07/25/2016 Comp Metabolic Jwh578 B/C Ratio 17.9 Ratio 07/25/2016 Comp Metabolic Hld746 CALCIUM 8.8 mg/dL 07/25/2016 Comp Metabolic Mtt044 ALK PHOS 71 U/L 07/25/2016 Comp Metabolic Nwe285 AST(SGOT) 14 U/L 07/25/2016 Comp Metabolic Cyd375 ALT(SGPT) 13 U/L 07/25/2016 Comp Metabolic Mfz021 BILI T 0.6 mg/dL 07/25/2016 Comp Metabolic Pyb051 ALBUMIN 3.9 g/dL 07/25/2016 Comp Metabolic Tiv305 TPRO 6.4 g/dL 07/25/2016 Comp Metabolic Iif587 GLOB 2.5 g/dL 07/25/2016 Comp Metabolic Poh127 A/G Ratio 1.5 Ratio 07/25/2016 Comp Metabolic Hds693 Osmo 275 mOsmo 07/25/2016 Cbc With Differential Ord2 WBC 5.27 [...] 29.8 pg 07/25/2016 Cbc With Differential Ord2 [place]% 14.4 % 07/25/2016 Cbc With Differential Ord2 Eos% 7.4 % 07/25/2016 Cbc With Differential Ord2 MCHC 33.6 pg 07/25/2016 Cbc With Differential Ord2 Baso% 0.4 % 07/25/2016 Cbc With Differential Ord2 PLT 215 K/ul 07/25/2016 Cbc With Differential Ord2 RDW 14.1 % 07/25/2016 Cbc With Differential Ord2 Neut ABS# 2.96 K/ul 07/25/2016 Cbc With Differential Ord2 Lymph ABS# 1.14 K/ul 07/25/2016 Cbc With Differential Ord2 [place] ABS# 0.8 K/ul 07/25/2016 Cbc With Differential Ord2 Eos ABS# 0.4 K/ul 07/25/2016 Cbc With Differential Ord2 Baso ABS# 0.0 K/ul 07/25/2016 Tsh Ord6 hTSH II 2.72 uIU/mL 07/25/2016 Lipid Ord30 CHOL 189 mg/dL 07/25/2016 Lipid Ord30 HDL 44.0 mg/dl 07/25/2016 Lipid Ord30 TRIG 127 mg/dL 07/25/2016 Lipid Ord30 LDL 120 mg/dL 07/25/2016 Lipid Ord30 C/HDL 4.3 Ratio 07/25/2016 Cbc With Differential Ord2 WBC 9.9 [...] Ord2 RDW 14.9 % 04/01/2015 Comp Metabolic Rqt496 NA 124 mEq/L 04/01/2015 Comp Metabolic Iaz947 K 4.2 mEq/L 04/01/2015 Comp Metabolic Mao254 CL 93 mEq/L 04/01/2015 Comp Metabolic Ysw906 CO2 24.0 mEq/L 04/01/2015 Comp Metabolic Ril647 ANION GAP 11 04/01/2015 Comp Metabolic Hqb530 GLUCOSE 103 mg/dL 04/01/2015 Comp Metabolic Dfz152 Creat 1.0 mg/dL 04/01/2015 Comp Metabolic Qtj697 eGFR 75 ml/min/1.73m2 04/01/2015 Comp Metabolic Srg057 BUN 13 mg/dL 04/01/2015 Comp Metabolic Hha624 B/C Ratio 12.7 Ratio 04/01/2015 Comp Metabolic Rmi423 CALCIUM 9.1 mg/dL 04/01/2015 Comp Metabolic Vse972 ALK PHOS 65 U/L 04/01/2015 Comp Metabolic Dmp030 AST(SGOT) 15 U/L 04/01/2015 Comp Metabolic Oxs491 ALT(SGPT) 15 U/L 04/01/2015 Comp Metabolic Kdz681 BILI T 1.1 mg/dL 04/01/2015 Comp Metabolic Kby622 ALBUMIN 4.0 g/dL 04/01/2015 Comp Metabolic Usn351 TPRO 6.2 g/dL 04/01/2015 Comp Metabolic Dnc303 GLOB 2.2 g/dL 04/01/2015 Comp Metabolic Spg636 A/G Ratio 1.8 Ratio 04/01/2015 Comp Metabolic Kzo072 Osmo 250 mOsmo 04/01/2015 Review of Systems [...] Procedure Codes Date THER/PROPH/DIAG INJ SC/IM CPT-4: 45423 06/24/2018 TRIAMCINOLONE ACET INJ NOS CPT-4: J3301 06/24/2018 Vital Signs Date Vital 06/24/2018 Blood Pressure 1: 150/88 Code : 8480-6 BMI: 27.0 Code : 60715-6 Heart Rate 1 : 85 bpm Height: 5'10" SpO2: 98% Temperature: 36.8 (C) / 98.2 (F) Weight: 188 lbs 05/26/2018 Blood Pressure 1: 128/68 Code : 8480-6 BMI: 27.0 Code : 67318-1 Heart Rate 1 : 62 bpm Height: 5'10" SpO2: 99% Weight: 188 lbs 05/21/2017 Blood Pressure 1: 142/84 Code : 8480-6 BMI: 27.1 Code : 68791-5 Heart Rate 1 : 75 bpm Height: 5'10" SpO2: 97% Weight: 189 lbs 11/20/2016 Blood Pressure 1: 130/88 Code : 8480-6 BMI: 27.7 Code : 41678-4 Heart Rate 1 : 80 bpm Height: 5'10" SpO2: 95% Weight: 193 lbs 07/24/2016 Blood Pressure 1: 132/78 Code : 8480-6 BMI: 27.7 Code : 03552-8 Heart Rate 1 : 78 bpm Height: 5'10" SpO2: 98% Weight: 193 lbs 01/24/2016 Blood Pressure 1: 140/76 Code : 8480-6 BMI: 27.7 Code : 57062-9 Heart Rate 1 : 83 bpm Height: 5'10" SpO2: 95% Weight: 193 lbs 10/20/2015 Blood Pressure 1: 106/66 Code : 8480-6 BMI: 27.3 Code : 23838-6 Heart Rate 1 : 75 bpm Height: 5'10" SpO2: 97% Weight: 190 lbs 8 oz 10/19/2015 Height: 5'10" 04/01/2015 Blood Pressure 1: 118/62 Code : 8480-6 BMI: 27.0 Code : 77916-6 Heart Rate 1 : 77 bpm Height: [...] organisms[ICD10: J20.8] [facility] CPT-4: 89326 06/24/2018 ([id number]) 91676 EST. 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 PATIENT, LEVEL IV Diagnosis: Essential (primary) hypertension[ICD10: I10] Diagnosis: Mixed hyperlipidemia[ICD10: E78.2] Susannah Dumont MD [facility] CPT-4: 67765 05/21/2017 ([id number]) 10184 EST. PATIENT, LEVEL IV Diagnosis: Essential (primary) hypertension[ICD10: I10] Diagnosis: Mixed hyperlipidemia[ICD10: E78.2] Susannah Dumont MD [facility] CPT-4: 83872 11/20/2016 ([id number]) 78141 EST. 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 PATIENT, LEVEL III Diagnosis: Essential (primary) hypertension[ICD10: I10] Susannah Dumont MD [facility] CPT-4: 70579 01/24/2016 ([id number]) 16952 EST. PATIENT, LEVEL III Diagnosis: Essential (primary) hypertension[ICD10: I10] Susannah Dumont MD, [facility] CPT-4: 76760 10/20/2015 ([id number]) OFFICE VISIT, NEW - LEVEL 3 Diagnosis: Essential (primary) hypertension[ICD10: I10] Diagnosis: Gross hematuria[ICD10: R31.0] Diagnosis: Anemia, unspecified[ICD10: D64.9] Yojana Dumont MD, [facility] CPT-4: 57343 04/01/2015 Plan of Care Planned Activity Notes Codes Status Date Visit Plan: Bronchitis - acute case of bronchitis identified. Pt has been given antibiotics, breathing treatments as appropriate, and pt has been instructed to call if symptoms are not improved, or if symptoms acutely worsen. 06/24/2018 Appointment: Lizzette Squires WPtel: [phone] [phone] (15 min) Moderate 06/24/2018 Patient Education: Patient Medication Summary Completed 06/24/2018 Appointment: Yojana Clark WPtel: [phone] [phone] (15 min) Moderate 05/27/2018 Visit Plan: Stroke [...] medications. 05/26/2018 Appointment: Susannah Dumont WPtel: [phone] [facility] (15 min) Moderate 05/26/2018 Patient Education: Patient Medication Summary Completed 05/26/2018 Patient Education: Cholesterol Management Completed 05/26/2018 Care Plan: Referral Order SNOMED-CT : [id number] Pending 05/26/2018 Visit Plan: Hypertension - well [...] medications. 05/21/2017 Appointment: Susannah Dumont WPtel: [phone] [facility] (15 min) Moderate 05/21/2017 Patient Education: Patient [...] medications. 11/20/2016 [phone] ([facility] min) Moderate 11/20/2016 Patient [...] severe obstruction. 01/24/2016 Appointment: Susannah Dumont WPtel: [phone] [facility] (15 min) Moderate 01/24/2016 Patient Education: Patient [...] no-show 10/19/2015 Appointment: Susannah Dumont WPtel: [phone] [facility] [place] (15 min) Moderate 10/19/2015 Patient Education: Patient Medication Summary Completed 10/19/2015 Appointment: Susannah Dumont WPtel: [phone] [facility] (15 min) Moderate 05/09/2015 Visit Plan: Hypertension - well controlled - continue with current medications, continue with no added salt diet. Pt has been encouraged to exercise daily. The pt has been advised to call the office if there are any acute concerns about change in blood pressure readings at home. Hematuria-HX of prostate cancer with TURP in 2011-seeing Dr Mccormack in [place] and following closely with them. Anemia-secondary to hematuria-check labs today 04/01/2015 Patient Education: Patient Medication Summary Completed 04/01/2015 Patient Education: Hypertension Completed 04/01/2015 Referral: [facility] Referral Appointment Requested Referral: [facility] 05/27 Referral info faxed. They will contact [...] PROBIOTIC TWICE DAILY-SOME OF THE NAMES ARE [employer], CiRBA CHECK LABS TODAY . Hypertension - well controlled - continue with current medications, continue with no added salt diet. Pt has been encouraged to exercise daily. The pt has been advised to call the office if there are any acute concerns about change in blood pressure readings at home. Hematuria-HX of prostate cancer with TURP in 2011-seeing Dr Mccormack in [place] and following closely with them. Anemia-secondary to hematuria-check labs today . Stroke - uncertain eitology - treated with TPAse - I have recommended referral to Dr. Mason - neurologist in [place] - pt to continue with Plavix, aspirin, [...]
--- OUTSIDE RECORDS SUMMARY | 2018-10-04 17:36 | XMS REPORT | CCD ---
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 Name Role Phone PP Unavailable CCM Unavailable Summary Purpose Interface Exchange Insurance Providers Payer name Policy type / Coverage type Covered alliance party ID Effective Begin Date Effective End Date WPS Medicare Part B Medicare Part B [id number] Unknown Unknown [facility] Medicare Part B [id number] Unknown Unknown Family history Father Diagnosis Age At Onset Arthritis Unknown Hypertension Unknown Brother Diagnosis Age At Onset Cancer Unknown Heart Attack Unknown Mother Diagnosis Age At Onset Skin cancer Unknown Cancer Unknown Social History Social History Element Codes Description Effective Dates Marital status Unknown Amber 07/24/2016 Number of children Unknown 3 04/01/[address]: 4542539 Former smoker 199404/01/[address]: 636794037 Never drinks alcohol 04/01/2015 Allergies, Adverse Reactions, Alerts Substance Reaction Codes Entered Date Inactivated Date Status * NO KNOWN DRUG ALLERGIES Unknown 04/01/2015 No Inactive Date Active Past Medical History Illness Codes Condition Status Onset Date Resolved Date 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 ICD-9: 434.91 ICD-10: I63.59 Active 05/26/2018 Unknown Essential (primary) hypertension ICD-9: 401.1 ICD-10: I10 Active 01/23/2016 Unknown Mixed hyperlipidemia ICD-9: 272.2 ICD-10: E78.2 Active 07/24/2016 Unknown Personal history of transient ischemic attack (TIA), and cerebral infarction without residual deficits ICD-9: V12.54 ICD-10: Z86.73 Active 05/26/2018 Unknown Atherosclerotic heart disease of [place] coronary artery without angina pectoris ICD-9: 414.00 [...] Problems Condition Codes Effective Dates Condition Status 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 ICD-9: 434.91 ICD-10: I63.59 05/26/2018 Active Essential (primary) hypertension ICD-9: 401.1 ICD-10: I10 01/23/2016 Active Mixed hyperlipidemia ICD-9: 272.2 ICD-10: E78.2 07/24/2016 Active Personal history of transient ischemic attack (TIA), and cerebral infarction without residual deficits ICD-9: V12.54 ICD-10: Z86.73 05/26/2018 Active Atherosclerotic heart disease of [place] coronary artery without angina pectoris ICD-9: 414.00 [...] Start Date Stop Date Status Fill Instructions coenzyme Q10 100 mg tablet RxNorm: 768067 1 Tablet(s) PO daily 07/24/2016 02/18/2017 Inactive Norvasc 5 mg tablet RxNorm: 902587 1 Tablet(s) PO daily No Start Date Active metoprolol tartrate 25 mg tablet RxNorm: 499591 1 Tablet(s) PO BID No Start Date Active Ranexa 500 mg tablet,extended release RxNorm: 153517 1 Tablet(s) PO BID No Start Date Active benazepril 10 mg tablet RxNorm: 231029 1 Tablet(s) PO daily No Start Date Active aspirin 81 mg capsule,delayed release RxNorm: 082661 1 Capsule(s) PO No Start Date Active turmeric root extract 500 mg capsule RxNorm: 5302839 Capsule(s) PO daily No Start Date 10/19/2015 Inactive Aleve 220 mg capsule RxNorm: 7314649 1 Capsule(s) PO daily No Start Date 10/19/2015 Inactive clopidogrel 75 mg tablet RxNorm: 436233 Tablet(s) PO daily No Start Date 01/23/2016 Inactive simvastatin 5 mg tablet RxNorm: 181190 1 Tablet(s) PO QHS No Start Date 05/20/2017 Inactive Aleve PM 220 mg-25 mg tablet RxNorm: 6436272 1 Tablet(s) PO QHS No Start Date 01/23/2016 Inactive magnesium RxNorm: PO No Start Date 2015 Inactive Fish Oil 1,000 mg capsule RxNorm: 1 Capsule(s) PO daily No Start Date 10/19/2015 Inactive Vitamin D3 2,000 unit tablet RxNorm: 591653 1 Tablet(s) PO daily No Start Date 10/19/2015 Inactive pantoprazole 20 mg tablet,delayed release RxNorm: 353109 1 Tablet(s) PO daily No Start Date 01/23/2016 Inactive Osteo Bi-Flex 250 mg-200 mg tablet RxNorm: 302115 Tablet(s) PO No Start Date 11/19/2016 Inactive Medication Administered No Medication Administered data Immunizations No Immunization data Assessments Condition Codes Effective Dates 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 ICD-10: I63.59 ICD-9: 434.91 05/26/2018 Essential (primary) hypertension ICD-10: I10 ICD-9: 401.1 05/26/2018 Mixed hyperlipidemia ICD-10: E78.2 ICD-9: 272.2 05/26/2018 Personal history of transient ischemic attack (TIA), and cerebral infarction without residual deficits ICD-10: Z86.73 ICD-9: V12.54 05/26/2018 Atherosclerotic heart disease of [place] coronary artery without angina pectoris ICD-10: I25.10 ICD-9: 414.00 07/24/2016 Impacted cerumen, right ear ICD-10: H61.21 ICD-9: 380.4 02/01/2016 Anemia, unspecified ICD-10: D64.9 ICD-9: 285.9 04/01/2015 Gross hematuria ICD-10: R31.0 ICD-9: 599.71 04/01/2015 Essential (primary) hypertension ICD-10: I10 ICD-9: 401.9 04/01/2015 Reason For Visit Reason For Visit Effective Dates Notes Hospital Follow Up 05/26/2018 hypertension 05/21/2017 left hip pain hypertension 11/20/2016 hypertension 07/24/2016 hypertension 01/24/2016 Hospital Follow Up 10/20/2015 Hospital Follow Up 10/19/2015 urinary retention/hesitancy 04/01/2015 has blood clots Results Observation Observation Code Item Item Code Result Date Comp Metabolic Rfa895 NA 136 mEq/L 07/25/2016 Comp Metabolic Cnv208 K 4.1 mEq/L 07/25/2016 Comp Metabolic Gdf343 CL 102 mEq/L 07/25/2016 Comp Metabolic Ueh912 CO2 26.0 mEq/L 07/25/2016 Comp Metabolic Okg880 ANION GAP 12 07/25/2016 Comp Metabolic Zes314 GLUCOSE 105 mg/dL 07/25/2016 Comp Metabolic Jlx524 Creat 1.1 mg/dL 07/25/2016 Comp Metabolic Nep653 eGFR 67 ml/min/1.73m2 07/25/2016 Comp Metabolic Orh880 BUN 20 mg/dL 07/25/2016 Comp Metabolic Sig792 B/C Ratio 17.9 Ratio 07/25/2016 Comp Metabolic Hck197 CALCIUM 8.8 mg/dL 07/25/2016 Comp Metabolic Asp581 ALK PHOS 71 U/L 07/25/2016 Comp Metabolic Zjb567 AST(SGOT) 14 U/L 07/25/2016 Comp Metabolic Muc742 ALT(SGPT) 13 U/L 07/25/2016 Comp Metabolic Xlr172 BILI T 0.6 mg/dL 07/25/2016 Comp Metabolic Wyx527 ALBUMIN 3.9 g/dL 07/25/2016 Comp Metabolic Zgk063 TPRO 6.4 g/dL 07/25/2016 Comp Metabolic Ezg624 GLOB 2.5 g/dL 07/25/2016 Comp Metabolic Zkn513 A/G Ratio 1.5 Ratio 07/25/2016 Comp Metabolic Ieo468 Osmo 275 mOsmo 07/25/2016 Lipid Ord30 CHOL [...] 29.8 pg 07/25/2016 Cbc With Differential Ord2 Mitchell% 14.4 % 07/25/2016 Cbc With Differential Ord2 [...] 1.14 K/ul 07/25/2016 Cbc With Differential Ord2 Mitchell ABS# 0.8 K/ul 07/25/2016 Cbc With Differential [...] Ord2 RDW 14.9 % 04/01/2015 Comp Metabolic Lwj652 NA 124 mEq/L 04/01/2015 Comp Metabolic Heb686 K 4.2 mEq/L 04/01/2015 Comp Metabolic Hvl519 CL 93 mEq/L 04/01/2015 Comp Metabolic Rep795 CO2 24.0 mEq/L 04/01/2015 Comp Metabolic Ukk605 ANION GAP 11 04/01/2015 Comp Metabolic Uqx975 GLUCOSE 103 mg/dL 04/01/2015 Comp Metabolic Ngw446 Creat 1.0 mg/dL 04/01/2015 Comp Metabolic Nsg385 eGFR 75 ml/min/1.73m2 04/01/2015 Comp Metabolic Qev071 BUN 13 mg/dL 04/01/2015 Comp Metabolic Vkn395 B/C Ratio 12.7 Ratio 04/01/2015 Comp Metabolic Xhd172 CALCIUM 9.1 mg/dL 04/01/2015 Comp Metabolic Szu854 ALK PHOS 65 U/L 04/01/2015 Comp Metabolic Qzi585 AST(SGOT) 15 U/L 04/01/2015 Comp Metabolic Ydb187 ALT(SGPT) 15 U/L 04/01/2015 Comp Metabolic Mjc007 BILI T 1.1 mg/dL 04/01/2015 Comp Metabolic Ulr236 ALBUMIN 4.0 g/dL 04/01/2015 Comp Metabolic Szd638 TPRO 6.2 g/dL 04/01/2015 Comp Metabolic Kwx140 GLOB 2.2 g/dL 04/01/2015 Comp Metabolic Ptr016 A/G Ratio 1.8 Ratio 04/01/2015 Comp Metabolic Rla813 Osmo 250 mOsmo 04/01/2015 Review of Systems System Result Effective Dates Constitutional No recent illness 2017 Constitutional No [...] clear 04/01/2015 None Full Exam - General 1995 Eyes conjunctiva /eyelids Overall: conjunctiva clear 04/01/2015 None Procedures No Procedures data Vital Signs Date Vital 05/26/2018 Blood Pressure 1: 128/68 Code : 8480-6 BMI: 27.0 Code : 12201-0 Heart Rate 1 : 62 bpm Height: 5'10" SpO2: 99% Weight: 188 lbs 05/21/2017 Blood Pressure 1: 142/84 Code : 8480-6 BMI: 27.1 Code : 30576-0 Heart Rate 1 : 75 bpm Height: 5'10" SpO2: 97% Weight: 189 lbs 11/20/2016 Blood Pressure 1: 130/88 Code : 8480-6 BMI: 27.7 Code : 99649-9 Heart Rate 1 : 80 bpm Height: 5'10" SpO2: 95% Weight: 193 lbs 07/24/2016 Blood Pressure 1: 132/78 Code : 8480-6 BMI: 27.7 Code : 22517-6 Heart Rate 1 : 78 bpm Height: 5'10" SpO2: 98% Weight: 193 lbs 01/24/2016 Blood Pressure 1: 140/76 Code : 8480-6 BMI: 27.7 Code : 77014-7 Heart Rate 1 : 83 bpm Height: 5'10" SpO2: 95% Weight: 193 lbs 10/20/2015 Blood Pressure 1: 106/66 Code : 8480-6 BMI: 27.3 Code : 03206-0 Heart Rate 1 : 75 bpm Height: 5'10" SpO2: 97% Weight: 190 lbs 8 oz 10/19/2015 Height: 5'10" 04/01/2015 Blood Pressure 1: 118/62 Code : 8480-6 BMI: 27.0 Code : 74167-0 Heart Rate 1 : 77 bpm Height: 5'10" SpO2: 95% Weight: 188 lbs Functional Status No Functional Status data History of Present Illness Symptom Name Status Result Effective Date Notes _ Other: stroke None Quality acute illness [...] data Encounters Encounter Performer Location Codes Date [id number]) [id number] EST. PATIENT, LEVEL IV Diagnosis: Essential (primary) hypertension[ICD10: I10] Diagnosis: Mixed hyperlipidemia[ICD10: E78.2] Diagnosis: Personal history of transient ischemic attack (TIA), and cerebral infarction without residual deficits[ICD10: Z86.73] Diagnosis: 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[ICD10: I63.59] [facility] CPT-4: 35596 05/26/2018 [id number]) 87782 EST. PATIENT, LEVEL IV Diagnosis: Essential (primary) hypertension[ICD10: I10] Diagnosis: Mixed hyperlipidemia[ICD10: E78.2] [facility] CPT-4: 18079 05/21/2017 ([id number]) 04362 EST. PATIENT, LEVEL IV Diagnosis: Essential (primary) hypertension[ICD10: I10] Diagnosis: Mixed hyperlipidemia[ICD10: E78.2] [facility] CPT-4: 52287 11/20/2016 [id number]) [id number] EST. PATIENT, LEVEL IV Diagnosis: Essential (primary) hypertension[ICD10: I10] Diagnosis: Mixed hyperlipidemia[ICD10: E78.2] Diagnosis: Atherosclerotic heart disease of [place] coronary artery without angina pectoris[ICD10: I25.10] Susannah Dumont MD, [facility] CPT-4: 96081 07/24/2016 ([id number]) Miscellaneous no charge Diagnosis: Impacted cerumen, right ear[ICD10: H61.21] [facility] CPT-4: 27476 02/01/2016 ([id number]) 86773 EST. PATIENT, LEVEL III Diagnosis: Essential (primary) hypertension[ICD10: I10] Susannah Dumont MD, [facility] CPT-4: 52530 01/24/2016 ([id number]) 17551 EST. PATIENT, LEVEL III Diagnosis: Essential (primary) hypertension[ICD10: I10] Susannah Dumont MD, [facility] CPT-4: 28300 10/20/2015 ([id number]) OFFICE VISIT, NEW - LEVEL 3 Diagnosis: Essential (primary) hypertension[ICD10: I10] Diagnosis: Gross hematuria[ICD10: R31.0] Diagnosis: Anemia, unspecified[ICD10: D64.9] Yojana Dumont MD, [facility] CPT-4: 69684 04/01/2015 Plan of Care Planned Activity Notes Codes Status Date Visit Plan: Stroke - uncertain eitology - treated with TPAse - I have recommended referral to Dr. Mason - neurologist in spring - pt to continue with Plavix, aspirin, [...] assure normal liver response to medications. 05/26/2018 Patient Education: Patient Medication Summary Completed 05/26/2018 Patient Education: Cholesterol Management Completed 05/26/2018 Care Plan: Referral Order SNOMED-CT : [id number] Pending 05/26/2018 Visit Plan: Hypertension - well [...] to medications. 05/21/2017 Appointment: [facility]ont WPtel: [facility] (15 min) Moderate 05/21/2017 Patient Education: [...] to medications. 11/20/2016 Appointment: [facility]Pt[facility] ([facility] min) Moderate 11/20/2016 Patient Education: Patient [...] severe obstruction. 01/24/2016 Appointment: Susannah Dumont WPtel: [phone] [facility] (15 min) Moderate 01/24/2016 Patient Education: [...] a no-show 10/19/2015 [phone] [facility] (15 min) Moderate 10/19/2015 Patient Education: Patient Medication Summary Completed 10/19/2015 Appointment: Susannah Dumont WPtel: [phone] [facility] (15 min) Moderate 05/09/2015 Visit Plan: Hypertension - well controlled - continue with current medications, continue with no added salt diet. Pt has been encouraged to exercise daily. The pt has been advised to call the office if there are any acute concerns about change in blood pressure readings at home. Hematuria-HX of prostate cancer with TURP in 2012-seeing Dr Mccormack in [place] and following closely with them. Anemia-secondary to hematuria-check labs today 04/01/2015 Patient Education: Patient Medication Summary Completed 04/01/2015 Patient Education: Hypertension Completed 04/01/2015 Referral: [facility] Referral Appointment Requested Instructions Comment start on the [...] to remove today due to severe obstruction. TAKE PROBIOTIC TWICE DAILY-SOME OF THE NAMES ARE [employer], [employer], [employer] CHECK LABS TODAY . Hypertension - well controlled - continue with current medications, continue with no added salt diet. Pt has been encouraged to exercise daily. The pt has been advised to call the office if there are any acute concerns about change in blood pressure readings at home. Hematuria-HX of prostate cancer with TURP in 2011-seeing Dr Mccormack in [place] and following closely with them. Anemia-secondary to hematuria-check labs today . Stroke - uncertain eitology - treated with TPAse - I have recommended referral to Dr. Mason - neurologist in spring - pt to continue with Plavix, aspirin, [...]
[2018-10-04 17:38] LABS: BASOPHILS % (AUTO) 0 % (0-10); EOSINOPHILS # (AUTO) 0.2 10^3/uL (0.0-0.3); EOSINOPHILS % (AUTO) 3 % (0-10); HEMATOCRIT 38 % (40-54); HEMOGLOBIN 12.8 G/DL (13.3-17.7); LYMPHOCYTES # (AUTO) 1.2 X 10^3 (1.0-4.0); LYMPHOCYTES % (AUTO) 18 % (12-44); MEAN CORPUSCULAR HEMOGLOBIN 30 PG (25-34); MEAN CORPUSCULAR HGB CONC 34 G/DL (32-36); MEAN CORPUSCULAR VOLUME 89 FL (80-99); MEAN PLATELET VOLUME 9.1 FL (7.4-10.4); MONOCYTES # (AUTO) 0.9 X 10^3 (0.0-1.0); MONOCYTES % (AUTO) 13 % (0-12); NEUTROPHILS # (AUTO) 4.5 X 10^3 (1.8-7.8); NEUTROPHILS % (AUTO) 66 % (42-75); PLATELET COUNT 235 10^3/uL (130-400); RED CELL DISTRIBUTION WIDTH 14.3 % (10.0-14.5); WHITE BLOOD COUNT 6.8 10^3/uL (4.3-11.0)
[2018-10-04] MEDS ORDERED: ALTEPLASE 100 MG/VIAL (ACTIVASE) IV ONE (17:43)
--- NOTE | 2018-10-04 17:52 | ED Neurological Problem ---
General Chief Complaint: Neuro-Stroke Like Symptoms Stated Complaint: POSS STROKE Source: patient, family Exam Limitations: no limitations History of Present Illness Date Seen by Provider: Oct 04, 2018 Time Seen by Provider: 17:25 Initial Comments Patient presents to ER with family with chief complaint that last known well time was 2 hours ago when he was out mowing grass. His daughter and spouse said he came in and laid down the couch and they told him that he can sit in his chair he wanted that he just started mumbling nonsense. They did not notice any facial droop or slurred speech. He does have a history of stroke and 2018 with no residual deficits according to family. Is not any problems walking but he was very confused and not making any sense when he talks. He is not diabetic. Denies any pain nausea shortness of breath sweats. Patient has a pacemaker. Denies history of atrial fibrillation. Allergies and Home Medications Allergies Coded Allergies: No Known Drug Allergies (Verified , 10/04/18) Home Medications Ascorbate Calcium 500 Mg Tablet, 500 MG PO DAILY, (Reported) Aspirin 81 Mg Tablet.dr, 81 MG PO DAILY, (Reported) Cephalexin 500 Mg Capsule, 500 MG PO TID Prescribed by: BEVERLEY DUMONT on 05/20/18 1034 Cholecalciferol (Vitamin D3) 2,000 Unit Tab.chew, 2,000 UNIT PO DAILY, (Reported ) Clopidogrel Bisulfate 75 Mg Tablet, 75 MG PO DAILY Prescribed by: BEVERLEY DUMONT on 05/20/18 1031 Ezetimibe 10 Mg Tablet, 10 MG PO DAILY, (Reported) Glucosamine/D3/Boswellia Annalise 1 Each Tablet, 1 TAB PO BID, (Reported) Losartan Potassium 50 Mg Tablet, 50 MG PO DAILY CHECK BLOOD PRESSURE PRIOR TO TAKING THIS MEDICATION - IF BP IS LESS THAN 120 DO NOT TAKE THIS MED Prescribed by: BEVERLEY DUMONT on 05/20/18 1031 Metoprolol Tartrate 50 Mg Tablet, 50 MG PO BID, (Reported) Naproxen Na-Diphenhydramin HCl 1 Each Tablet, 1 TAB PO HS, (Reported) Ranolazine 500 Mg Tab.er.12h, 500 MG PO BID, (Reported) Ubidecarenone 200 Mg Capsule, 200 MG PO DAILY, (Reported) Patient Home Medication List Home Medication List Reviewed: Yes Review of Systems Review of Systems Constitutional: No chills, No diaphoresis Eyes: Denies Blindness, Denies Blurred Vision, Denies Drainage Ears, Nose, Mouth, Throat: denies ear pain, denies ear discharge Respiratory: No cough, No short of breath Cardiovascular: No chest pain, No edema Gastrointestinal: No abdominal pain, No constipation, No diarrhea Genitourinary: No discharge, No dysuria Musculoskeletal: No back pain, No joint pain Skin: No pruritus, No rash Past Obgbdfi-Xayqrb-Ynrhok Hx Patient Social History Alcohol Use: Regular Use Alcohol Beverage of Choice: Whiskey Recreational Drug Use: No Smoking Status: Former Smoker Former Smoker, Quit: Aug 25, 1995 2nd Hand Smoke Exposure: No Recent Foreign Travel: No Contact w/Someone Who Travel: No Recent Hopitalizations: No Immunizations Up To Date Tetanus Booster (TDap): Unknown PED Vaccines UTD: No Seasonal Allergies Seasonal Allergies: No Past Medical History Surgeries: Yes Bladder Surgery, Cardiac, CABG, Coronary Stent, Gallbladder, Orthopedic, Pacemaker, Transurethral Resection Respiratory: Yes Asthma Cardiac: Yes Coronary Artery Disease, Heart Attack, Hypertension Neurological: No Reproductive Disorders: No Sexually Transmitted Disease: No HIV/AIDS: No Genitourinary: Yes Prostate Problems Gastrointestinal: Yes Gall Bladder Disease Musculoskeletal: Yes Arthritis, Chronic Back Pain Endocrine: No Loss of Vision: Denies Hearing Impairment: Denies Cancer: Yes Prostate Psychosocial: No Integumentary: No Blood Disorders: No Adverse Reaction/Blood Tranf: No Family Medical History Alzheimer's disease 19 FATHER, Onset:60 years & older Cardiovascular disease 19 FATHER, Onset:15's - 20 (Was told that he had a "Leaky Heart") FH: brain cancer 19 MOTHER, Onset:60 years & older G8 BROTHER, Onset:50's - 60 FH: lung cancer 19 MOTHER, Onset:60 years & older FH: sudden G8 BROTHER, Onset:Childhood (Was ran over by a car at the age of 6.) Heart Disease, Hypertension Physical Exam Vital Signs Vital Signs - First Documented Capillary Refill : Height, Weight, BMI Height: 5'9.00" Weight: 186lbs. 1.6oz. 84.610436on; 27.6 BMI Method:Stated General Appearance: WD/WN, mild distress HEENT: PERRL/EOMI, normal ENT inspection, TMs normal, pharynx normal Neck: non-tender, full range of motion, supple, normal inspection Respiratory: lungs clear, normal breath sounds, no respiratory distress, no accessory muscle use Cardiovascular: normal peripheral pulses, regular rate, rhythm, no edema Peripheral Pulses: 2+ Radial Pulses (R), 2+ Radial Pulses (L) Gastrointestinal: normal bowel sounds, non tender, soft Neurologic/Psychiatric: alert, normal mood/affect Crainal Nerves: normal hearing; No normal speech; PERRL, abnormal speech Coordination/Gait: abnormal gait (able to transfer from wheelchair to bed with standby assist.), ABN nose to finger (R), ABN nose to finger (L) Motor/Sensory: no motor deficit, no sensory deficit, pronator drift (R) (upper extremity) Skin: normal color, warm/dry Stroke Onset of Symptoms Date of Onset of Symptoms: Oct 04, 2018 Time of Symptom Onset: 15:30 Onset of Symptoms: Yes Symptoms onset unknown: No NIH Stroke Scale Assessment Select: Initial Level of Consciousness: 0=Alert (0), Level of Consciousness- Questions: 1=Answers one question (1), LOC Commands: 0=Performs both tasks (0), Gaze: Normal (0), Visual [place]: 0=No visual loss (0), Facial Movement (Facial Paresis): 1=Minor paralysis (1), Motor Function-Arms Right: 1=Drift (1), Motor Function-Arms Left: 0=No drift (0), Motor Function-Legs Right: 0=No drift (0), Motor Function-Legs Left: 0=No drift (0), Limb Ataxia: 2=Present in two limbs (2 ), Sensory: 0=Normal:no loss (0), Best Language: 2=Severe aphasia (2), Dysarthria: 1=Mild to moderate loss (1), Extinction & Inattention: 0=No abnormality (0), Total: 8 Stroke Thrombolytic Exclusion Age 18 or Over: Yes Acute intenal hemorrhage: No History of CVA: Yes Uncontrolled Coagulation Defec: No Intracranial Hemorrhage: No Severe Hypertension: No GI or Bleed: No Subarachnoid Hemorrhage: No Intracranial Neoplasm/Aneurysm: No Oral Anticoagulants: No Surgery or Trauma: No Puncture of Non-Compressible V: No Recent CPR: No Diabetic Hemorrhagic Retinopat: No Organ Biopsy: No Recent Obstetric Delivery: No Glucose: No (120) Significant Hepatic Dysfunctio: No NIH Stoke Scale >22: No Bacterial Endocarditis: No Pericarditis: No Improving Symptoms: No Platelets: No (235k) TPA Contraindication: No Progress/Results/Core Measures Results/Orders Lab Results Laboratory Tests Test 10/04/18 17:29 10/04/18 17:31 10/04/18 18:08 Range/Units Glucometer 120 H 70-110 MG/DL White Blood Count 6.8 4.3-11.0 10^3/uL Red Blood Count 4.26 L 4.35-5.85 10^6/uL Hemoglobin 12.8 L 13.3-17.7 G/DL Hematocrit 38 L 40-54 % Mean Corpuscular Volume 89 80-99 FL Mean Corpuscular Hemoglobin 30 25-34 PG Mean Corpuscular Hemoglobin Concent 34 32-36 G/DL Red Cell Distribution Width 14.3 10.0-14.5 % Platelet Count 235 130-400 10^3/uL Mean Platelet Volume 9.1 7.4-10.4 FL Neutrophils (%) (Auto) 66 42-75 % Lymphocytes (%) (Auto) 18 12-44 % Monocytes (%) (Auto) 13 H 0-12 % Eosinophils (%) (Auto) 3 0-10 % Basophils (%) (Auto) 0 0-10 % Neutrophils # (Auto) 4.5 1.8-7.8 X 10^3 Lymphocytes # (Auto) 1.2 1.0-4.0 X 10^3 Monocytes # (Auto) 0.9 0.0-1.0 X 10^3 Eosinophils # (Auto) 0.2 0.0-0.3 10^3/uL Basophils # (Auto) 0.0 0.0-0.1 10^3/uL Prothrombin Time 14.3 12.2-14.7 SEC INR Comment 1.1 0.8-1.4 Activated Partial Thromboplast Time 31 24-35 SEC D-Dimer 0.67 H 0.00-0.49 UG/ML Sodium Level 136 135-145 MMOL/L Potassium Level 4.2 3.6-5.0 MMOL/L Chloride Level 105 98-107 MMOL/L Carbon Dioxide Level 20 L 21-32 MMOL/L Anion Gap 11 5-14 MMOL/L Blood Urea Nitrogen 20 H 7-18 MG/DL Creatinine 1.26 0.60-1.30 MG/DL Estimat Glomerular Filtration Rate 55 BUN/Creatinine Ratio 16 Glucose Level 122 H 70-105 MG/DL Calcium Level 9.1 8.5-10.1 MG/DL Corrected Calcium 9.2 8.5-10.1 MG/DL Total Bilirubin 1.2 H 0.1-1.0 MG/DL Aspartate Amino Transf (AST/SGOT) 16 5-34 U/L Alanine Aminotransferase (ALT/SGPT) 19 0-55 U/L Alkaline Phosphatase 56 40-136 U/L Troponin I < 0.028 <0.028 NG/ML Total Protein 6.3 L 6.4-8.2 GM/DL Albumin 3.9 3.2-4.5 GM/DL Serum Alcohol < 10 <10 MG/DL Urine Color YELLOW Urine Clarity CLEAR Urine pH 5 5-9 Urine Specific Beverly 1.020 1.016-1.022 Urine Protein 1+ H NEGATIVE Urine Glucose (UA) NEGATIVE NEGATIVE Urine Ketones NEGATIVE NEGATIVE Urine Nitrite NEGATIVE NEGATIVE Urine Bilirubin NEGATIVE NEGATIVE Urine Urobilinogen 1 NORMAL MG/DL Urine Leukocyte Esterase 1+ H NEGATIVE Urine RBC (Auto) NEGATIVE NEGATIVE Urine RBC NONE /HPF Urine WBC 2-5 /HPF Urine Squamous Epithelial Cells RARE /HPF Urine Crystals NONE /LPF Urine Bacteria NEGATIVE /HPF Urine Casts NONE /LPF Urine Mucus NEGATIVE /LPF Urine Culture Indicated NO My Orders Orders - FLORENCIO TOBIAS Cbc With Automated Diff (10/04/18 17:30) Protime With Inr (10/04/18 17:30) Partial Thromboplastin Time (10/04/18 17:30) Comprehensive Metabolic Panel (10/04/18 17:30) Fibrin Degradation Products (10/04/18 17:30) Troponin I (10/04/18 17:30) Ua Culture If Indicated (10/04/18 17:30) Chest 1 View, Ap/Pa Only (10/04/18 17:30) Catheter(Urinary) Insert & Ass 03,15 (10/04/18 17:30) Ekg Tracing (10/04/18 17:30) Nothing By Mouth (10/05/18 Breakfast) Accucheck Stat ONCE (10/04/18 17:30) Ed Iv/Invasive Line Start (10/04/18 17:30) Ed Iv/Invasive Line Start (10/04/18 17:30) Vital Signs Stroke Patient Q15M (10/04/18 17:30) Ct Head Wo-R/O Stroke (10/04/18 17:30) O2 (10/04/18 17:30) Intake & Output 06,14,22 (10/04/18 17:30) Monitor-Rhythm Ecg Trace Only (10/04/18 17:30) Dysphagia Screening Tool (10/04/18 17:30) Lipid Panel (10/05/18 06:00) Alteplase (Activase) (Activase Injection (10/04/18 17:43) Alcohol (10/04/18 18:17) Knee, Left, 3 Views (10/04/18 18:26) Ed Iv/Invasive Line Start (10/04/18 18:37) Lactated Ringers (Lr 1000 Ml Iv Solution (10/04/18 18:37) Lactated Ringers (Lr 1000 Ml Iv Solution (10/04/18 18:34) Medications Given in ED Current Medications Medications Dose Ordered Sig/Leana Route Start Time Stop Time Status Last Admin Dose Admin Lactated Ringer's 1,000 ml @ 0 mls/hr Q0M ONCE IV 10/04/18 18:37 10/04/18 18:39 DC 10/04/18 18:45 0 MLS/HR Vital Signs/I&O 10/04/18 10/04/18 10/04/18 17:30 17:30 17:31 Pulse 64 67 Resp 18 18 B/P (MAP) 137/87 (104) 137/87 Pulse Ox 98 98 96 O2 Delivery Room Air Room Air FSBG Bedside Testing Finger Stick Blood Glucose: 120 Progress Progress Note #1: Time: 17:56 Progress Note Patient was brought back blood sugar is 120s so we took him straight to CT. NIH score of 8. Apparently he had a stroke in 2018 was TPA'ed in May 2018. He is on Plavix and aspirin as well as a arm and beta robel but no blood thinner. Known to Dr. Hampton and Dr. Dumont. Progress Note #2: Time: 18:32 Progress Note Patient was having a lot more coherent as we brought him back from CT scan which was negative. We repeated a NIH at 1800 which was 3. Discussed case with Dr. Smallwood, [facility] neurology and she agreed that with improving symptoms and a low score of 3 now she would not recommend TPA over the risk of extracranial bleeds. The symptoms are not lateralizing or focal. He suspects that the patient could be dehydrated or have some other illness this causing a reactivation of his stroke symptoms. She recommend a observation, IV fluids aggressively manage blood pressure and check the pacemaker looking for atrial fibrillation. The family remarks that they were just in Dr. Hampton's office 2 weeks ago and had the pacemaker checked and there was no evidence of atrial fibrillation then. If there is no evidence of atrial fibrillation should continue the aspirin and Plavix. Progress Note #3: Time: 19:08 Progress Note Medtr[employer] interrogation reveals no events. PVCs only. Initial ECG Impression Date: Oct 04, 2018 Initial ECG Impression Time: 17:48 Initial ECG Rate: 60 Initial ECG Rhythm: Normal Sinus Initial ECG Intervals: Normal Initial ECG Impression: Nonspecific Changes Comment Atrial paced rhythm. Diagnostic Imaging Diagonstic Imaging: Xray Plain Films/CT/US/NM/MRI: chest Reviewed: Reviewed by Me Diagonstic Imaging: CT (noncontrast) Plain Films/CT/US/NM/MRI: head Comments No acute intracranial hemorrhage, mass effect, tumor, midline shift. [facility]. [place], [place] NAME: SHAVONNE MAIN [facility] REC#: [id number] PT STATUS: REG ER : 1935 PHYSICIAN: FLORENCIO TOBIAS MD ADMIT DATE: 10/04/18/ER Draft Date of Exam:10/04/18 CT HEAD WO-R/O STROKE PROCEDURE: CT head without contrast, r/o stroke. TECHNIQUE: Multiple contiguous axial images were obtained through the brain without the use of intravenous contrast. Auto Exposure Controls were utilized during the CT exam to meet ALARA standards for radiation dose reduction. INDICATION: Slurred speech, inability to answer questions. COMPARISON: Prior CT head from 05/19/2018. FINDINGS: Ventricles and sulci are within normal limits. No sulcal effacement, midline shift or hemorrhage is detected. Cisterns are patent. Visualized paranasal sinuses are clear. IMPRESSION: No acute intracranial process is identified. Results were called to Dr. Tobias of the Emergency Department prior to this dictation. Dictated on workstation # [id number] Dict: 10/04/18 1755 Trans: 10/04/18 1801 [facility] [id number] Interpreted by: TRACEY CHUNG MD Electronically signed by: Reviewed: Reviewed by Me, Discussed w/Radiologist Diagonstic Imaging: Xray Plain Films/CT/US/NM/MRI: knee (L) Reviewed: Reviewed by Me Departure Communication (Admissions) Time/Spoke to Admitting Phy: 18:30 Discussed case lab EKG plan with Dr. Rothman and she would like Dr. Allred aware and consult with cardiology. Time/Spoke to Consulting Phy: 18:45 Discussed the case with Dr. Allred and Dr. Ash. They agreed the current plan. Impression Primary Impression: Dehydration Additional Impression: TIA (transient ischemic attack) Disposition: ADMITTED INPATIENT Condition: Stable Admissions Decision to Admit Reason: Admit from ER (General) Decision to Admit/Date: Oct 04, 2018 Time/Decision to Admit Time: 18:15 Departure-Patient Inst. Referrals: BEVERLEY DUMONT MD (PCP/Family) Primary Care Physician FLORENCIO TOBIAS Oct 04, 2018 17:52
[2018-10-04 18:02] LABS: ALANINE AMINOTRANSFERASE 19 U/L (0-55); ALBUMIN 3.9 GM/DL (3.2-4.5); ALKALINE PHOSPHATASE 56 U/L (40-136); BILIRUBIN,TOTAL 1.2 MG/DL (0.1-1.0); BUN/CREATININE RATIO 16; CALCIUM 9.1 MG/DL (8.5-10.1); CARBON DIOXIDE 20 MMOL/L (21-32); CHLORIDE 105 MMOL/L (98-107); CREATININE SERUM 1.26 MG/DL (0.60-1.30); GFR ESTIMATED 55; GLUCOSE 122 MG/DL (70-105); POTASSIUM 4.2 MMOL/L (3.6-5.0); SODIUM 136 MMOL/L (135-145); TOTAL PROTEIN 6.3 GM/DL (6.4-8.2)
--- NOTE | 2018-10-04 18:02 | Diagnostic Imaging Report ---
PROCEDURE: CT head without contrast, r/o stroke. TECHNIQUE: Multiple contiguous axial images were obtained through the brain without the use of intravenous contrast. Auto Exposure Controls were utilized during the CT exam to meet ALARA standards for radiation dose reduction. INDICATION: Slurred speech, inability to answer questions. COMPARISON: Prior CT head from 05/19/2018. FINDINGS: Ventricles and sulci are within normal limits. No sulcal effacement, midline shift or hemorrhage is detected. Cisterns are patent. Visualized paranasal sinuses are clear. IMPRESSION: No acute intracranial process is identified. Results were called to Dr. Tobias of the Emergency Department prior to this dictation. Dictated by: Dictated on workstation # [id number]
[2018-10-04 18:03] LABS: FIBRIN DEGRADATION PRODUCTS 0.67 UG/ML (0.00-0.49); INR 1.1 (0.8-1.4); PROTHROMBIN TIME PATIENT 14.3 SEC (12.2-14.7)
[2018-10-04 18:14] LABS: BILIRUBIN,URINE NEGATIVE (NEGATIVE); CLARITY,URINE CLEAR; COLOR,URINE YELLOW; GLUCOSE, URINE (UA) NEGATIVE (NEGATIVE); KETONES,URINE NEGATIVE (NEGATIVE); LEUKOCYTE ESTERASE ,URINE 1+ (NEGATIVE); NITRITE,URINE NEGATIVE (NEGATIVE); PH,URINE 5 (5-9); PROTEIN,URINE 1+ (NEGATIVE); UROBILINOGEN,URINE 1 MG/DL (NORMAL)
[2018-10-04 18:21] LABS: BACTERIA,URINE NEGATIVE /HPF; SQUAMOUS EPITHELIAL CELL,UR RARE /HPF
[2018-10-04] MEDS ORDERED: LACTATED RINGERS 1,000 ML IV ONE ×2 (18:34→18:37)
--- NOTE | 2018-10-04 19:03 | NUR ---
PAM MEDROSALINDA REP, CALLED TO REPORT NO MAJOR EVENTS NOTED FROM INFO RECEIVED FROM TRANSMISSION. BATTERY LIFE UP TO 9 YEARS. SOME PVCs NOTED SINCE LAST CHECK.
--- NOTE | 2018-10-04 19:08 | Diagnostic Imaging Report ---
INDICATION: Fall with left knee hematoma. Time of exam: 6:30 PM 3 views of the left knee demonstrate significant soft tissue swelling anteriorly just below the level of the patella. There is medial and patellofemoral compartmental degenerative change with joint space narrowing and marginal spurring. No fracture is identified. No effusion is seen. IMPRESSION: Soft tissue swelling anteriorly consistent with known hematoma. No acute bony abnormalities detected. Dictated by: Dictated on workstation # [id number]
--- NOTE | 2018-10-04 19:11 | Diagnostic Imaging Report ---
INDICATION: Slurred speech and stroke. Time of exam: 6:31 PM Comparison is made with prior chest from 05/20/2018. Changes of median sternotomy and CABG are noted. Cardiac pacemaker remains in place. The lungs are clear. No infiltrate is detected. There is no effusion or pneumothorax. IMPRESSION: No acute cardiopulmonary process is detected. Dictated by: Dictated on workstation # [id number]
[2018-10-04] MEDS ORDERED: ONDANSETRON 4 MG/2 ML (SDV) Z0FRAN IV PRN (20:30)
[2018-10-04] MEDS ORDERED: oxyCODONE/APAP 5/325MG (PERCOCET 5) TABLET PO PRN (20:45)
[2018-10-04] MEDS ORDERED: ALPRAZolam 0.25 MG (XANAX) TAB PO PRN (20:45)
[2018-10-04] MEDS ORDERED: ACETAMINOPHEN 325 MG TABLET PO PRN (20:45)
[2018-10-04] MEDS: LACTATED RINGERS 1,000 ML IV SCH (20:55)
[2018-10-04] MEDS ORDERED: ATORVASTATIN 80 MG (LIPITOR) TABLET PO SCH (21:00)
[2018-10-05] VITALS (10 sets, daily range): BP systolic 112–150; BP diastolic 56–85
[2018-10-05 00:58] LABS: BASOPHILS % (AUTO) 0 % (0-10); EOSINOPHILS # (AUTO) 0.1 10^3/uL (0.0-0.3); EOSINOPHILS % (AUTO) 2 % (0-10); HEMATOCRIT 35 % (40-54); HEMOGLOBIN 11.7 G/DL (13.3-17.7); LYMPHOCYTES # (AUTO) 1.1 X 10^3 (1.0-4.0); LYMPHOCYTES % (AUTO) 15 % (12-44); MEAN CORPUSCULAR HEMOGLOBIN 30 PG (25-34); MEAN CORPUSCULAR HGB CONC 34 G/DL (32-36); MEAN CORPUSCULAR VOLUME 90 FL (80-99); MEAN PLATELET VOLUME 8.6 FL (7.4-10.4); MONOCYTES # (AUTO) 0.9 X 10^3 (0.0-1.0); MONOCYTES % (AUTO) 13 % (0-12); NEUTROPHILS # (AUTO) 5.1 X 10^3 (1.8-7.8); NEUTROPHILS % (AUTO) 70 % (42-75); PLATELET COUNT 188 10^3/uL (130-400); WHITE BLOOD COUNT 7.3 10^3/uL (4.3-11.0)
[2018-10-05 01:23] LABS: BUN/CREATININE RATIO 17; CARBON DIOXIDE 22 MMOL/L (21-32); CHLORIDE 105 MMOL/L (98-107); CHOLESTEROL 134 MG/DL (< 200); CREATININE SERUM 1.13 MG/DL (0.60-1.30); GFR ESTIMATED > 60; GLUCOSE 118 MG/DL (70-105); HDL CHOLESTEROL 39 MG/DL (40-60); MAGNESIUM 1.9 MG/DL (1.8-2.4); PHOSPHORUS 3.3 MG/DL (2.3-4.7); POTASSIUM 3.8 MMOL/L (3.6-5.0); SODIUM 138 MMOL/L (135-145); TRIGLYCERIDES 80 MG/DL (<150); VLDL CHOLESTEROL 16 MG/DL (5-40)
[2018-10-05] MEDS: LACTATED RINGERS 1,000 ML IV SCH (04:40)
--- NOTE | 2018-10-05 05:48 | Pulmonary Consultation ---
History of Present Illness History of Present Illness Date of Consultation 10/05/18 05:42 Time Seen by Provider: 05:42 Date of Admission History of Present Illness 83yo with hx of recent CVA 2017 (no residual deficits) presented to ED secondary to worsening weakness, confusion, and dysphonia. Pt was dx with dehydration in ED. Pt started improving while in ED and is currently at MS baseline. NIH 8 on admission and was down to 3 prior to leaving ED. Currently INH is 1. No f/ns/c. No CP/Abd Pain, No CHO. Allergies and Home Medications Allergies Coded Allergies: Rmsvysk-Xxm-Cfc Reductase Inhibitor (Verified Adverse Reaction, Mild, 10/05) joint pain Home Medications Ascorbate Calcium 500 Mg Tablet, 500 MG PO DAILY, (Reported) Aspirin 81 Mg Tablet.dr, 81 MG PO DAILY, (Reported) Cephalexin 500 Mg Capsule, 500 MG PO TID Prescribed by: BEVERLEY YOUNGER on 05/20/18 1034 Cholecalciferol (Vitamin D3) 2,000 Unit Tab.chew, 2,000 UNIT PO DAILY, (Reported ) Clopidogrel Bisulfate 75 Mg Tablet, 75 MG PO DAILY Prescribed by: BEVERLEY YOUNGER on 05/20/18 1031 Ezetimibe 10 Mg Tablet, 10 MG PO DAILY, (Reported) Glucosamine/D3/Boswellia Annalise 1 Each Tablet, 1 TAB PO BID, (Reported) Losartan Potassium 50 Mg Tablet, 50 MG PO DAILY CHECK BLOOD PRESSURE PRIOR TO TAKING THIS MEDICATION - IF BP IS LESS THAN 120 DO NOT TAKE THIS MED Prescribed by: BEVERLEY YOUNGER on 05/20/18 1031 Metoprolol Tartrate 50 Mg Tablet, 50 MG PO BID, (Reported) Naproxen Na-Diphenhydramin HCl 1 Each Tablet, 1 TAB PO HS, (Reported) Ranolazine 500 Mg Tab.er.12h, 500 MG PO BID, (Reported) Ubidecarenone 200 Mg Capsule, 200 MG PO DAILY, (Reported) Past Vntcath-Srjetf-Kspuyr Hx Patient Social History Alcohol Use: Regular Use Number of Drinks Today: GG Alcohol Beverage of Choice: Whiskey Recreational Drug Use: No Smoking Status: Former Smoker Former Smoker, Quit: Aug 25, 1995 2nd Hand Smoke Exposure: No Recent Foreign Travel: No Contact w/Someone Who Travel: No Recent Infectious Disease Expo: No Recent Hopitalizations: No Immunizations Up To Date Tetanus Booster (TDap): Unknown PED Vaccines UTD: No Seasonal Allergies Seasonal Allergies: No Past Medical History Surgeries: Yes Bladder Surgery, Cardiac, CABG, Coronary Stent, Gallbladder, Orthopedic, Pacemaker, Transurethral Resection Respiratory: Yes Asthma Cardiac: Yes Coronary Artery Disease, Heart Attack, High Cholesterol, Hypertension Neurological: No Reproductive Disorders: No Sexually Transmitted Disease: No HIV/AIDS: No Genitourinary: Yes Prostate Problems Gastrointestinal: Yes Gall Bladder Disease Musculoskeletal: Yes Arthritis, Chronic Back Pain Endocrine: No Loss of Vision: Denies Hearing Impairment: Denies Cancer: Yes Prostate Psychosocial: No Integumentary: No Blood Disorders: No Adverse Reaction/Blood Tranf: No Family Medical History Alzheimer's disease 19 FATHER, Onset:60 years & older Cardiovascular disease 19 FATHER, Onset:15's - 20 (Was told that he had a "Leaky Heart") FH: brain cancer 19 MOTHER, Onset:60 years & older G8 BROTHER, Onset:50's - 60 FH: lung cancer 19 MOTHER, Onset:60 years & older FH: sudden G8 BROTHER, Onset:Childhood (Was ran over by a car at the age of 6.) Heart Disease, Hypertension Review of Systems Time Seen by Provider: 05:48 Sepsis Event Evaluation Height, Weight, BMI Height: 5'11.00" Weight: 177lbs. 6.0oz. 80.057607im; 25.2 BMI Method:Stated Exam Exam Vital Signs Date Time Temp Pulse Resp B/P (MAP) Pulse Ox O2 Delivery O2 Flow Rate FiO2 10/05/18 05:00 63 12 148/72 (97) 91 Room Air 10/05/18 04:00 62 14 130/66 (87) 96 Room Air 10/05/18 04:00 98 Room Air 10/05/18 03:32 97.3 10/05/18 03:00 72 25 120/56 (77) 98 Room Air 10/05/18 02:00 60 19 142/74 (96) 99 Room Air 10/05/18 01:00 60 17 134/75 (94) 97 Room Air 10/05/18 01:00 60 10/05/18 00:00 71 24 142/70 (94) 98 Room Air 10/05/18 00:00 99 Room Air 10/04/18 23:38 98.6 10/04/18 23:00 65 21 132/74 (93) 96 Room Air 10/04/18 22:00 60 17 147/73 (97) 96 Room Air 10/04/18 21:00 60 15 132/101 (111) 98 Room Air 10/04/18 20:30 60 15 126/79 (95) 98 Room Air 10/04/18 20:15 64 20 125/79 (94) 96 Room Air 10/04/18 20:00 60 18 136/74 (94) 99 Room Air 10/04/18 20:00 98 Room Air 10/04/18 19:45 65 18 140/80 (100) 93 Room Air 10/04/18 19:42 98.0 66 16 154/81 (105) 97 Room Air 10/04/18 19:42 74 10/04/18 19:35 98 Room Air 10/04/18 19:26 60 14 139/94 (109) 99 Room Air 10/04/18 17:31 67 18 137/87 96 10/04/18 17:30 98 Room Air 10/04/18 17:30 64 18 137/87 (104) 98 Room Air I & O 10/05/18 07:00 Intake Total 2200 ml Output Total 500 ml Balance 1700 ml Height & Weight Height: 5'11.00" Weight: 177lbs. 6.0oz. 80.489230yu; 25.2 BMI Method:Stated General Appearance: No Apparent Distress, WD/WN HEENT: PERRL/EOMI, TMs Normal, Normal ENT Inspection, Pharynx Normal Neck: Full Range of Motion, Normal Inspection, Non Tender, Supple Respiratory: Chest Non Tender, No Accessory Muscle Use, No Respiratory Distress , Decreased Breath Sounds Cardiovascular: Regular Rate, Rhythm, No Edema, No Gallop, No JVD, No Murmur Capillary Refill: Less Than 3 Seconds Peripheral Pulses: 2+ Radial Pulses (R), 2+ Radial Pulses (L) Gastrointestinal: normal bowel sounds, non tender, soft Extremity: Normal Capillary Refill, Normal Inspection Neurologic/Psychiatric: Alert, Oriented x3 Skin: Normal Color, Warm/Dry Lymphatic: No Adenopathy Results Lab Laboratory Tests 10/04/18 17:31 10/05/18 00:45 Assessment/Plan Assessment/Plan Acute dehydration - improved -IVF Acute TIA with hx of CVA 2018 -Pt passed swallow eval -Pt is back baseline status currently CAD with Hx of CABG -Troponins neg Hypertension - Controlled Hyperlipidemia SSS with pacemaker Hx of nonobstructive carotid stenosis -Plavix -ASA DONALDO MICHAUD DO Oct 05, 2018 05:48
[2018-10-05] MEDS ORDERED: MAGNESIUM 1 GM/100 ML IVPB 100 ML IV SCH (06:00)
[2018-10-05] MEDS ORDERED: KCL 20 MEQ TAB (K-DUR) PO SCH (06:00)
[2018-10-05] MEDS ORDERED: POTASSIUM CL 10MEQ/50ML IVPB 50 ML IV SCH (06:00)
[2018-10-05 06:35] LABS: CHOLESTEROL 128 MG/DL (< 200); HDL CHOLESTEROL 35 MG/DL (40-60); TRIGLYCERIDES 102 MG/DL (<150); VLDL CHOLESTEROL 20 MG/DL (5-40)
--- NOTE | 2018-10-05 07:24 | Short Stay Summary-Hospitalist ---
History of Present Illness HPI/Chief Complaint CC: TIA? 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 He was assessed in the ER to be in need of close monitoring considering the recent stroke he had in May which resulted in a transfer to [facility] after TPA was given. Stroke protocol was followed and stroke neurologist evaluated the case and recommended close monitoring and likely it was affecting his prior area where he suffered a stroke in May. He is much improved after IV fluids given the pacemaker was interrogated revealing no significant arrhythmia and patient will be discharged home once cardiology approves. Source: patient Exam Limitations: no limitations Date Seen 10/05/18 Time Seen by a Provider: 06:45 Attending Physician Margot Rothman Holly A MD Referring Physician Date of Admission Oct 04, 2018 at 18:40 Home Medications & Allergies Home Medications Reviewed patient Home Medication Reconciliation performed by pharmacy medication reconciliations injection maintenance technician and/or nursing. Patients Allergies have been reviewed. Allergies Allergies Coded Allergies Uovyelx-Tep-Zov Reductase Inhibitor (Verified Adverse Reaction, Mild, 10/05/18) joint pain Past Rlvafnb-Exmgeb-Yyyutw Hx Past Med/Social Hx: Reviewed Nursing Past Med/Soc Hx, Reviewed and Corrections made Patient Social History Marrital Status: Employed/Student: retired Alcohol Use: Regular Use Number of Drinks Today: GG Alcohol Beverage of Choice: Whiskey Recreational Drug Use: No Smoking Status: Former Smoker Former Smoker, Quit: Aug 25, 1995 2nd Hand Smoke Exposure: No Recent Foreign Travel: No Contact w/other who traveled: No Recent Hopitalizations: No Recent Infectious Disease Expo: No Immunizations Up To Date Tetanus Booster (TDap): Unknown Pediatric: No Seasonal Allergies Seasonal Allergies: No Past Medical History Surgeries: Bladder Surgery, Cardiac, CABG, Coronary Stent, Gallbladder, Orthopedic, Pacemaker, Transurethral Resection Cardiac: Coronary Artery Disease, Heart Attack, High Cholesterol, Hypertension Reproductive: No Sexually Transmitted Disease: No HIV/AIDS: No Genitourinary: Prostate Problems Gastrointestinal: Gall Bladder Disease Musculoskeletal: Arthritis, Chronic Back Pain Loss of Vision: Denies Hearing Impairment: Denies Cancer: Prostate History of Blood Disorders: No Adverse Reaction to Blood Mcneill: No Family History Alzheimer's disease 19 FATHER, Onset:60 years & older Cardiovascular disease 19 FATHER, Onset:15's - 20 (Was told that he had a "Leaky Heart") FH: brain cancer 19 MOTHER, Onset:60 years & older G8 BROTHER, Onset:50's - 60 FH: lung cancer 19 MOTHER, Onset:60 years & older FH: sudden G8 BROTHER, Onset:Childhood (Was ran over by a car at the age of 6.) Heart Disease, Hypertension Review of Systems Constitutional: see HPI, malaise, weakness EENTM: no symptoms reported Respiratory: no symptoms reported Cardiovascular: no symptoms reported Gastrointestinal: no symptoms reported Genitourinary: no symptoms reported Musculoskeletal: no symptoms reported Skin: no symptoms reported Psychiatric/Neurological: Numbness, Paresthesia All Other Systems Reviewed Negative Unless Noted: Yes Physical Exam Physical Exam Vital Signs Vital Signs - First Documented 10/04/18 19:42 Temp 98.0 Capillary Refill : Less Than 3 Seconds Height, Weight, BMI Height: 5'11.00" Weight: 177lbs. 6.0oz. 80.187758la; 25.2 BMI Method:Stated General Appearance: No Apparent Distress, WD/WN, Chronically ill HEENT: PERRL/EOMI, TMs Normal, Normal ENT Inspection, Pharynx Normal Neck: Full Range of Motion, Normal Inspection, Non Tender, Supple Respiratory: Chest Non Tender, No Accessory Muscle Use, No Respiratory Distress , Decreased Breath Sounds Cardiovascular: Regular Rate, Rhythm, No Edema, No Gallop, No JVD, No Murmur Extremity: Normal Capillary Refill, Normal Inspection Neurologic/Psychiatric: Alert, Oriented x3 Skin: Normal Color, Warm/Dry Lymphatic: No Adenopathy Results Results/Procedures Labs Laboratory Tests 10/04/18 17:31 10/05/18 00:45 Patient resulted labs reviewed. Short Stay Diagnosis Discharge Diagnosis-Short Stay Admission Diagnosis Assessment: Questionable TIA Acute dehydration after heavy lawn work with fall Acute CVA with aphasia 05/27 improved after receiving TPA and then was sent to [facility] Pacemaker evaluation on 10/04/18 showed no PAF Coronary artery disease, history of CABG x4 done 98' Hypertension Hyperlipidemia Permanent pacemaker Carotid stenosis mild BPH Final Discharge Diagnosis Assessment: Questionable TIA Acute dehydration after heavy lawn work with fall Acute CVA with aphasia 05/27 improved after receiving TPA and then was sent to [facility] Pacemaker evaluation on 10/04/18 showed no PAF Coronary artery disease, history of CABG x4 done 98' Hypertension Hyperlipidemia Permanent pacemaker Carotid stenosis mild BPH Conclusion Plan DC home Close f/u with Dr Dumont Diagnosis/Problems Diagnosis/Problems (1) TIA (transient ischemic attack) Status: Acute (2) Fall Status: Acute Qualifiers: Qualified Codes: W19.XXXA - Unspecified fall, initial encounter (3) Near syncope Status: Acute (4) Dehydration Status: Acute (5) History of prostate cancer Status: Acute Clinical Quality Measures DVT/VTE Risk/Contraindication: Risk Factor Score Per Nursin RFS Level Per Nursing on Admit: 2=Moderate Stroke: Date of last known well: Oct 04, 2018 Time of last known well: 15:30 Symptoms onset unknown: MARGOT Cazares DO Oct 05, 2018 07:24
--- NOTE | 2018-10-05 09:43 | Diagnostic Imaging Report ---
INDICATION: Stroke, transient ischemic attack, dehydration. TECHNIQUE: Single view chest 3:28 AM. CORRELATION STUDY: 10/04/2018 FINDINGS: Patient is poststernotomy and coronary artery bypass. Left-sided pacemaker remains in place. Heart size and mediastinum are stable. Component of mild vascular congestion is present. Lung parenchyma appears generally stable. No definitive infiltrate. IMPRESSION: 1. Posttraumatic changes. Borderline vasculature has developed. Dictated by: Dictated on workstation # [id number]
--- NOTE | 2018-10-05 12:44 | Consultation-Cardiology ---
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 Stroke was also considered. This has been managed by Dr Rothman Mr Lazara currently does not describe any symptoms. No cp or palp or shortness of breath or syncope or weakness. Wishes to go home Review of Systems-Cardiology Review of Systems Constitutional: As described under HPI Eyes: No vision change Ears/Nose/Throat: No nasal drainage, No recent hearing loss Respiratory: As described under HPI Cardiovascular: As described under HPI Gastrointestinal: No constipation, No diarrhea, No nausea, No vomiting, No stool coloration changes Genitourinary: No dysuria, No hematuria, No urine frequency changes Musculoskeletal: No back pain, No joint pain Skin: No rash, No ulcerations Psychiatric/Neurological: No focal weakness, No syncope Hematologic: No bleeding abnormalities UAW-Pojhzt-Dpwlfp Hx Patient Social History Alcohol Use: Regular Use Recreational Drug Use: No Smoking Status: Former Smoker Former smoker/When Quit: Apr 30, 1996 2nd Hand Smoke Exposure: No Recent Foreign Travel: No Recent Infectious Disease Expo: No Immunizations Up To Date Tetanus Booster (TDap): Unknown Past Medical History PMH As described under Assessment. Family Medical History Family History: Alzheimer's disease 19 FATHER, Onset:60 years & older Cardiovascular disease 19 FATHER, Onset:15's - 20 (Was told that he had a "Leaky Heart") FH: brain cancer 19 MOTHER, Onset:60 years & older G8 BROTHER, Onset:50's - 60 FH: lung cancer 19 MOTHER, Onset:60 years & older FH: sudden G8 BROTHER, Onset:Childhood (Was ran over by a car at the age of 6.) Allergies and Home Medications Allergies Coded Allergies: Vqibbua-Tvk-Ifg Reductase Inhibitor (Verified Adverse Reaction, Mild, 10/05) joint pain Home Medications Aspirin 81 Mg Tablet.dr, 81 MG PO DAILY, (Reported) Cholecalciferol (Vitamin D3) 2,000 Unit Tab.chew, 1,000 UNIT PO DAILY, (Reported ) Clopidogrel Bisulfate 75 Mg Tablet, 75 MG PO DAILY Prescribed by: BEVERLEY DUMONT on 05/20/18 1031 Ezetimibe 10 Mg Tablet, 10 MG PO DAILY, (Reported) Losartan Potassium 50 Mg Tablet, 50 MG PO DAILY CHECK BLOOD PRESSURE PRIOR TO TAKING THIS MEDICATION - IF BP IS LESS THAN 120 DO NOT TAKE THIS MED Prescribed by: BEVERLEY DUMONT on 05/20/18 1031 Metoprolol Tartrate 50 Mg Tablet, 50 MG PO BID, (Reported) Ranolazine 500 Mg Tab.er.12h, 500 MG PO BID, (Reported) Patient Home Medication List Home Medication List Reviewed: Yes Physical Exam-Cardiology Physical Exam Vital Signs/I&O 10/05/18 10/05/18 10/05/18 10/05/18 01:00 01:00 02:00 03:00 Pulse 60 60 60 72 Resp 17 19 25 B/P (MAP) 134/75 (94) 142/74 (96) 120/56 (77) Pulse Ox 97 99 98 O2 Delivery Room Air Room Air Room Air 10/05/18 10/05/18 10/05/18 10/05/18 03:32 04:00 04:00 05:00 Temp 97.3 Pulse 62 63 Resp 14 12 B/P (MAP) 130/66 (87) 148/72 (97) Pulse Ox 98 96 91 O2 Delivery Room Air Room Air Room Air 10/05/18 10/05/18 10/05/18 10/05/18 07:00 07:00 08:00 08:00 Pulse 76 76 66 Resp 14 23 B/P (MAP) 143/85 (104) Pulse Ox 99 98 98 O2 Delivery Room Air Room Air Room Air 10/05/18 10/05/18 10/05/18 10/05/18 08:00 09:00 10:00 11:35 Temp 98.2 99.0 Pulse 67 65 62 Resp 24 15 25 B/P (MAP) 146/74 (98) 150/78 (102) 112/69 (83) Pulse Ox 97 96 96 O2 Delivery Room Air Room Air Room Air 10/05/18 12:07 B/P (MAP) 10/05/18 00:00 Intake Total 1100 ml Output Total 0 ml Balance 1100 ml Capillary Refill : Less Than 3 Seconds Constitutional: AAO x 3, well-developed, well-nourished HEENT: EOMI, hearing is well preserved; No xanthelasmas are seen Neck: carotid pulses are 2 + bilaterally, with good upstrokes Respiratory: No accessory muscle use; lungs clear to percussion, lungs clear to auscultation Cardiovascular: regular rate-rhythm, S1 and S2, systolic murmur (faint HECTOR at card base) Gastrointestinal: No tender; soft; No guarding, No rebound; audible bowel sounds Extremities: No clubbing, No cyanosis, No significant edema Neurologic/Psychiatric: oriented x 3, grossly intact, power is 5/5 both on sides Skin: No rash on exposed areas, No ulcerations on exposed areas Data Review Labs Laboratory Tests 10/04/18 17:29: Glucometer 120H 10/04/18 17:31: White Blood Count 6.8, Red Blood Count 4.26L, Hemoglobin 12.8L, Hematocrit 38L, Mean Corpuscular Volume 89, Mean Corpuscular Hemoglobin 30, Mean Corpuscular Hemoglobin Concent 34, Red Cell Distribution Width 14.3, Platelet Count 235, Mean Platelet Volume 9.1, Neutrophils (%) (Auto) 66, Lymphocytes (%) (Auto) 18, Monocytes (%) (Auto) 13H, Eosinophils (%) (Auto) 3, Basophils (%) (Auto) 0, Neutrophils # (Auto) 4.5, Lymphocytes # (Auto) 1.2, Monocytes # (Auto) 0.9, Eosinophils # (Auto) 0.2, Basophils # (Auto) 0.0, Prothrombin Time 14.3, INR Comment 1.1, Activated Partial Thromboplast Time 31, D-Dimer 0.67H, Sodium Level 136, Potassium Level 4.2, Chloride Level 105, Carbon Dioxide Level 20L, Anion Gap 11, Blood Urea Nitrogen 20H, Creatinine 1.26, Estimat Glomerular Filtration Rate 55, BUN/Creatinine Ratio 16, Glucose Level 122H, Calcium Level 9.1, Corrected Calcium 9.2, Total Bilirubin 1.2H, Aspartate Amino Transf (AST/ SGOT) 16, Alanine Aminotransferase (ALT/SGPT) 19, Alkaline Phosphatase 56, Troponin I < 0.028, Total Protein 6.3L, Albumin 3.9, Serum Alcohol < 10 10/04/18 18:08: Urine Color YELLOW, Urine Clarity CLEAR, Urine pH 5, Urine Specific [place] 1.020, Urine Protein 1+H, Urine Glucose (UA) NEGATIVE, Urine Ketones NEGATIVE, Urine Nitrite NEGATIVE, Urine Bilirubin NEGATIVE, Urine Urobilinogen 1, Urine Leukocyte Esterase 1+H, Urine RBC (Auto) NEGATIVE, Urine RBC NONE, Urine WBC 2-5 , Urine Squamous Epithelial Cells RARE, Urine Crystals NONE, Urine Bacteria NEGATIVE, Urine Casts NONE, Urine Mucus NEGATIVE, Urine Culture Indicated NO 10/04/18 20:16: Glucometer 117H 10/05/18 00:45: White Blood Count 7.3, Red Blood Count 3.88L, Hemoglobin 11.7L, Hematocrit 35L, Mean Corpuscular Volume 90, Mean Corpuscular Hemoglobin 30, Mean Corpuscular Hemoglobin Concent 34, Red Cell Distribution Width 14.0, Platelet Count 188, Mean Platelet Volume 8.6, Neutrophils (%) (Auto) 70, Lymphocytes (%) (Auto) 15, Monocytes (%) (Auto) 13H, Eosinophils (%) (Auto) 2, Basophils (%) (Auto) 0, Neutrophils # (Auto) 5.1, Lymphocytes # (Auto) 1.1, Monocytes # (Auto) 0.9, Eosinophils # (Auto) 0.1, Basophils # (Auto) 0.0, Sodium Level 138, Potassium Level 3.8, Chloride Level 105, Carbon Dioxide Level 22, Anion Gap 11, Blood Urea Nitrogen 19H, Creatinine 1.13, Estimat Glomerular Filtration Rate > 60, BUN /Creatinine Ratio 17, Glucose Level 118H, Calcium Level 9.0, Phosphorus Level 3.3, Magnesium Level 1.9, Troponin I < 0.028, Triglycerides Level 80, Cholesterol Level 134, LDL Cholesterol Direct 80, VLDL Cholesterol 16, HDL Cholesterol 39L 10/05/18 06:03: Troponin I < 0.028, Triglycerides Level 102, Cholesterol Level 128, LDL Cholesterol Direct 76, VLDL Cholesterol 20, HDL Cholesterol 35L Laboratory Tests 10/04/18 17:31 10/05/18 00:45 A/P-Cardiology Assessment/Admission Diagnosis Questionable TIA on 10/04/18 that is managed by Dr Rothman Acute CVA with aphasia on May 18, 2018. Improved after receiving TPA. Pacemaker interrogation on 10/04/18 showed no atrial or ventricular high rates or any documentation of PAF Coronary artery disease, history of CABG x4 done in 1997 using LIM to LAD, vein graft to LAD, vein graft to the first and second Obtuse marginal and vein graft to the right coronary artery. Patient underwent cardiac catheterization on November 10, [address] 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 There is 80 percent lesion in the mid RCA just distal to the second peerz hook 80 percent lesion just distal to that at the takeoff of the PDA. Patient underwent 2 stent placements using 3.0 x 16 Promus Premier stent in the distal vessel, 3.0 x 20 Promus Premier stent in the mid RCA. Both were 0 percent post with GERA grade 3 following the procedure. Most recent cardiac catheterization done August 24, 2016 revealed borderline lesion in the stent in the right coronary artery and in the vein graft to the first and second obtuse marginal branch. Hypertension Hyperlipidemia S/p pacemaker. Pt states it was for low heart rate. Followed by Dr Hampton. Pacemaker functioning normally on interrogation of 10/04/18 Mild bilateral carotid stenosis, nonobstructive disease, continue to monitor. Benign prostatic hypertrophy, history of TURP. Followed by Dr. Walker Discussion and Recomendations * I reviewed his previous records and records from Dr Hampton's office * I had a long and detailed discussion regarding his CV issues with him and his and daughter * Cardiac status currently appears stable * Pacemaker is not exhibiting any a fib. We recommend continuation of DAPT * We recommend outpt card f/u * Management of CVA/TIA is with Dr Rothman Clinical Quality Measures DVT/VTE Risk/Contraindication: Risk Factor Score Per Nursin RFS Level Per Nursing on Admit: 2=Moderate Stroke: Date of last known well: Oct 04, 2018 Time of last known well: 15:30 Symptoms onset unknown: No RUBEN BRASWELL MD FACP FAC CCDS Oct 05, 2018 12:44
[2018-10-06] MEDS ORDERED: ASPIRIN 81 MG CHEW (CHILDREN'S ASA) PO SCH (09:00)
[2018-10-06] MEDS ORDERED: CLOPIDOGREL 75 MG (PLAVIX) TABLET PO SCH (09:00)
== END 2018-10-05 12:07 | disposition home or self-care (01) ==
LOC: EDUNIT# 17:24 → ER 17:25 → ICU 18:40
PROVIDERS: ADMIT Internal Medicine; ATTEND Internal Medicine
DX: E86.0 Dehydration (principal); R55 Syncope and collapse; I25.10 Atherosclerotic heart disease of native coronary artery without angina pectoris; Z95.1 Presence of aortocoronary bypass graft; I10 Essential (primary) hypertension; E78.5 Hyperlipidemia, unspecified; I65.29 Occlusion and stenosis of unspecified carotid artery; N40.0 Benign prostatic hyperplasia without lower urinary tract symptoms; M19.91 Primary osteoarthritis, unspecified site; E78.00 Pure hypercholesterolemia, unspecified; I25.2 Old myocardial infarction; I49.5 Sick sinus syndrome; Z95.5 Presence of coronary angioplasty implant and graft; Z85.46 Personal history of malignant neoplasm of prostate; Z95.0 Presence of cardiac pacemaker; Z87.891 Personal history of nicotine dependence; W19.XXXA Unspecified fall, initial encounter; Z79.82 Long term (current) use of aspirin; Z79.899 Other long term (current) drug therapy; Z86.73 Personal history of transient ischemic attack (TIA), and cerebral infarction without residual deficits
CPT/HCPCS: 36415; 70450; 71045; 73562; 80048; 80053; 80061; 80320; 81000; 82962; 83735; 84100; 84484; 85025; 85379; 85610; 85730; 87081; 93005; 93041; G0378

== ENCOUNTER → 2018-10-29 | Outpatient (CLI) | payer MEDICARE ==
[~2018-10-29] MED LIST changes: +CATHETER FLUSH 10 ML SYR IV PRN; +REGADENOSON 0.4 MG/5 ML SYR (LEXISCAN) IV ONE
--- NOTE | 2018-10-29 19:48 | STRESS TEST ---
DATE OF SERVICE: 10/29/2018 LEXISCAN MYOVIEW STRESS TEST REPORT REFERRING PHYSICIAN: Susannah Dumont MD Baseline heart rate is 61, baseline blood pressure 148/83, baseline EKG is sinus rhythm with no ischemic changes. In summary, the patient was injected with 10.91 mCi of technetium-99 Myoview and the resting images were obtained. Then, the patient received 0.4 mg of Lexiscan, followed by 28.9 mCi of technetium-99 Myoview. Throughout the test, there were no EKG changes. The resting and stress images were reviewed and compared in the short axis, horizontal long axis, and vertical long axis views. Review of the images showed diaphragmatic attenuation with reversible ischemia involving the mid to apical inferior wall and inferolateral wall. SSS is 5, SDS 4, TID value 1.05. On the gated images, the left ventricle appeared to be in normal size with mild hypokinesia at the anterior wall. Calculated ejection fraction 53%. IN CONCLUSION: 1. The patient tolerated Lexiscan well. 2. Diaphragmatic attenuation with reversible ischemia involving the mid to apical inferior wall and inferolateral wall. 3. Normal left ventricular size with mild hypokinesia at the anterior wall. Calculated ejection fraction 53%. Job ID: [id number] DocumentID: [id number] Dictated Date: 10/29/2018 16:19:45 Channel Process Supervisor Date: 10/29/2018 19:48:15 Dictated By: NACHO FERRRE MD
== END ==
LOC: CARD 07:18
PROVIDERS: ATTEND Internal Medicine Cardiovascular Disease
DX: I25.10 Atherosclerotic heart disease of native coronary artery without angina pectoris (principal); R06.09 Other forms of dyspnea; I10 Essential (primary) hypertension; E78.5 Hyperlipidemia, unspecified; I49.5 Sick sinus syndrome
CPT/HCPCS: 78452; 93017

== ENCOUNTER 2018-11-12 07:45 | Day surgery (SDC) | payer MEDICARE ==
[2018-11-12] VITALS (10 sets, daily range): BP systolic 106–152; BP diastolic 69–95
[~2018-11-12] VITALS: Ht 177.8 cm; Wt 82.2 kg
[~2018-11-12 07:45] MED LIST changes: -CATHETER FLUSH 10 ML SYR IV PRN; -EZET10TA27 PO; +EZET10TA49 PO; -REGADENOSON 0.4 MG/5 ML SYR (LEXISCAN) IV ONE
[2018-11-12] MEDS ORDERED: NS IV 1000 ML 1,000 ML IV SCH (07:51)
[2018-11-12] MEDS ORDERED: NS IV 1000 ML 1,000 ML ONE (07:52)
[2018-11-12] MEDS ORDERED: LIDOCAINE 1% INJ 20 ML 20 ML VIAL ONE (07:52)
[2018-11-12] MEDS ORDERED: HEParin (CATH LAB) 2,000 ML IV ONE (07:52)
--- NOTE | 2018-11-12 08:20 | Diagnostic Imaging Report ---
EXAM: CHEST 1 VIEW, AP/PA ONLY INDICATION: Coronary artery disease. COMPARISON: Chest radiograph 10/05/2018. FINDINGS: Sternotomy with mediastinal markers. Cardiac pacer. Normal heart size and central pulmonary vascularity. No focal pulmonary opacity, pleural effusion or pneumothorax. No acute osseous findings. No significant change. IMPRESSION: No acute cardiopulmonary findings. Dictated by: Dictated on workstation # [id number]
[2018-11-12 08:27] LABS: HEMOGLOBIN 13.7 G/DL (13.3-17.7); MEAN PLATELET VOLUME 9.2 FL (7.4-10.4); RED CELL DISTRIBUTION WIDTH 13.8 % (10.0-14.5)
[2018-11-12] MEDS ORDERED: GLUC-219 PO (08:32)
[2018-11-12 08:33] LABS: PROTHROMBIN TIME PATIENT 13.6 SEC (12.2-14.7)
[2018-11-12 08:42] LABS: ALBUMIN 4.2 GM/DL (3.2-4.5); BILIRUBIN,TOTAL 0.7 MG/DL (0.1-1.0); CALCIUM 9.3 MG/DL (8.5-10.1); CREATININE SERUM 1.35 MG/DL (0.60-1.30); POTASSIUM 4.2 MMOL/L (3.6-5.0)
[2018-11-12] MEDS ORDERED: MIDAZOLAM 5 MG/5 ML (VERSED) VIAL ONE (08:46)
[2018-11-12] MEDS ORDERED: fentaNYL INJECTION 100 MCG/2 ML AMP ONE (08:46)
--- NOTE | 2018-11-12 08:59 | Cardiac Procedure Note-CS/ASA ---
Pre-Procedure Note Pre-Op Procedure Note H&P Reviewed The H&P was reviewed, patient examined and no changes noted. Date H&P Reviewed: Nov 12, 2018 Time H&P Reviewed: 08:59 Conscious Sedation Pre-Proced Time 08:59 ASA Score 3 For ASA 3 and 4: Consider anesthesia and medical clearance. Also, for patients with a history of failed moderate sedation consider anesthesia. Airway Lungs Heart ASA score ASA 1: a normal healthy patient ASA 2: a patient with a mild systemic disease (mid diabetes, controlled hypertension, obesity x ASA 3: a patient with a severe systemic disease that limits activity (angina, COPD, prior Myocardial infarction) ASA 4: a patient with an incapacitating disease that is a constant threat to life (CHF, renal failure) ASA 5: a moribund patient not expected to survive 24 hrs. (ruptured aneurysm) ASA 6: a declared brain- patient whose organs are being harvested. For emergent operations, add the letter E after the classification Mallampati Classification Grade 3 Sedation Plan Analgesia, Amnesia, Plan communicated to team members, Discussed options with patient/fam, Discussed risks with patient/fam The patient is an appropriate candidate to undergo the planned procedure, sedation, and anesthesia. The patient immediately re-assessed prior to indication. NACHO FERRER MD Nov 12, 2018 08:59
[2018-11-12] MEDS ORDERED: HEParin 1000 UNIT/ML (10ML VIAL) FOR BOLUS ONE (09:20)
[2018-11-12] MEDS ORDERED: EPTIFIBATIDE BOLUS 20 ML IV ONE (09:21)
[2018-11-12] MEDS ORDERED: NITRO DRIP 25000 MCG/D5W 250 ML IV ONE (09:21)
[2018-11-12] MEDS ORDERED: ASPIRIN 325 MG (5 GR) TABLET ONE (09:50)
[2018-11-12] MEDS ORDERED: CLOPIDOGREL 300 MG (PLAVIX) TABLET PO ONE (09:50)
--- NOTE | 2018-11-12 09:55 | Cardiac Cath Report ---
Cardiac Cath Report Physician (s)/Art Educator (s) Physician NACHO FERRER MD Pre-Procedure Diagnosis Pre-Procedure Diagnosis: coronary artery disease Post-Procedure Note Procedure Start Date: Nov 12, 2018 Name of Procedure: Left heart catheterization Being graft angiogram LIM angiogram Stent to the vein graft to the circumflex and diagonal artery Findings/Procedure Note PROCEDURE NOTE: 83 years old gentleman with extensive cardiac history, known to have extensive coronary artery disease, multiple interventions in the past, had an abnormal stress test, had been complaining of fatigue and loss of energy. Scheduled for cardiac catheterization. After explaining the procedure to the patient, all pros and cons were explained, all questions were answered. The patient signed the consent and then he was placed on the cardiac catheterization laboratory. Groin was prepped SL fashion local anesthesia was used. Sheath placed in the right femoral artery. Sandra right and left catheter were used to access the coronary system, JR catheter was used to access the vein graft and the LIM, prolapse of the left ventricular cavity and pressure was measured no left ventriculogram was done. Patient was given 6000 units of heparin, double bolus Integrilin. If our guide was advanced to the vein graft to the circumflex/diagonal artery, BMW wire was advanced, primary stenting using 4.023 mm Loida stent expanded to 4.5 mm proximally and 4.25 mm distally, there was some haziness in the proximal area was suspicious of a thrombus, [place] catheter was used. At the end of the procedure we had excellent results. No complication noted At the end of the procedure the sheath was removed. Closure device was used FINDINGS: Hemodynamics LV 130/11, end-diastolic pressure of 11 Aorta 119/59 mean of 81 ANATOMY: Left Main this known to have severe disease Left Anterior Descending is severely disease with patent LIM to LAD and vein graft to diagonal Left Circumflex is severely disease with patent vein graft to the circumflex system Right Coronory Artery is dominant artery, known to have stents, mild disease distally, patent stents with no obstructive disease Vein graft, patient has occluded vein graft that is known to be occluded, the second vein graft is a jump graft to the diagonal and circumflex system that has 90 percent stenosis successful primary stenting using Loida 4.023 mm expanded to 4.5 mm proximally 4.25 mm distally with excellent results. LIM angiogram showed patent LIM to LAD LV Gram was not done, pressure was measured CONCLUSION: 1. Severe stenosis in the mid vein graft to the circumflex and diagonal branch successful primary stenting using Loida 4.0 x 23 mm expanded to 4.5 mm proximally and 4.25 mm distally with excellent results. 2. Patent LIM to LAD 3. Known to have severe disease in the left circumflex and LAD system that was corrected with a bypass grafts 4. Dominant right coronary system with patent stents, tortuous artery was small vessel disease 5. Normal left ventricular end-diastolic pressure DISCUSSION AND RECOMMENDATION: continue to maximize medical therapy Anesthesia Type: Conscious Sedation Estimated blood loss (mL): 25 ml Contrast Amount: 75 ml Total Radiation Dose: 645 mGy Post-Procedure Diagnosis Post-operative diagnosis: Chest pain Coronary artery disease Hypertension Hyperlipidemia NACHO FERRER MD Nov 12, 2018 09:55
[2018-11-12] MEDS ORDERED: PATIENT MAY USE OWN MEDS, ALL PO SCH (10:00)
[2018-11-12] MEDS: NS IV 1000 ML 1,000 ML IV SCH ×2 (12:26→21:02)
--- NOTE | 2018-11-12 20:59 | NUR ---
2052-dr. rico notified pt daughter gave pt home Ranexa 500mg & Lopressor 50mg, also verified order on ns-to give 1000ml bag x1-when current bag is finished saline lock pt.
[2018-11-12] MEDS ORDERED: meTOprolol TARTRATE 50 MG (LOPRESSOR) TAB PO SCH (21:00)
[2018-11-12] MEDS ORDERED: NON-FORMULARY MEDICATION 1 EA EA (Ranolazine (Ranexa) 500 MG) PO SCH (21:00)
[2018-11-13 00:11] VITALS: BP 120/74
[2018-11-13 03:44] VITALS: BP 123/81
[2018-11-13 03:55] LABS: HEMOGLOBIN 12.3 G/DL (13.3-17.7); MEAN PLATELET VOLUME 9.2 FL (7.4-10.4); RED CELL DISTRIBUTION WIDTH 13.9 % (10.0-14.5); WHITE BLOOD COUNT 6.1 10^3/uL (4.3-11.0)
[2018-11-13 04:15] LABS: BUN/CREATININE RATIO 15; CALCIUM 8.9 MG/DL (8.5-10.1); CARBON DIOXIDE 22 MMOL/L (21-32); CHLORIDE 106 MMOL/L (98-107); CREATININE SERUM 1.11 MG/DL (0.60-1.30); GFR ESTIMATED > 60; GLUCOSE 97 MG/DL (70-105); POTASSIUM 4.5 MMOL/L (3.6-5.0); SODIUM 138 MMOL/L (135-145)
--- NOTE | 2018-11-13 07:16 | Cardiology Progress Note ---
Subjective Date Seen by Provider: Nov 13, 2018 Time Seen by Provider: 07:14 Subjective/Events-last exam patient is laying down in bed, groin is healing well. Denied any chest pain Review of Systems General: No Chills, No Night Sweats, No Fatigue, No Malaise, No Appetite, No Other HEENT: No Head Aches, No Visual Changes, No Eye Pain, No Ear Pain, No Dysphasia, No Sinus Congestion, No Post Nasal Drip, No Sore Throat, No Other Pulmonary: No Dyspnea, No Cough, No Pleuritic Chest Pain, No Other Cardiovascular: No: Chest Pain, Palpitations, Orthopnea, Paroxysmal Noc. Dyspnea, Edema, Lt Headedness, Other Objective-Cardiology Exam Last Set of Vital Signs Vital Signs 11/13/18 11/13/18 03:44 04:00 Pulse 62 Resp 15 B/P (MAP) 123/81 (95) Pulse Ox 96 O2 Delivery Room Air Capillary Refill : Less Than 3 SecondsLess Than 3 Seconds I&O Intake and Output 11/13/18 00:00 Intake Total 1440 ml Balance 1440 ml Intake Oral 440 ml IV Total 1000 ml # Voids 3 Daily Weight Change No General: Alert, Oriented X3, Cooperative HEENT: Atraumatic, PERRLA Neck: Supple, No JVD, No Thyromegaly Lungs: Clear to Auscultation, Normal Air Movement Heart: Regular Rate, Normal S1, Normal S2, No Murmurs Abdomen: Normal Bowel Sounds, Soft, No Tenderness, No Hepatosplenomegaly, No Masses Extremities: No Clubbing, No Cyanosis, No Edema, Normal Pulses, No Tenderness/Swelling Skin: No Rashes, No Breakdown, No Significant Lesion Neuro: Normal Gait, Normal Speech, Strength at 5/5 X4 Ext, Normal Tone, Sensation Intact Psych/Mental Status: Mental Status NL, Mood NL Results Lab Laboratory Tests 11/12/18 08:15 11/13/18 03:30 A/P-Cardiology Admission Diagnosis Coronary artery disease Hypertension Hyperlipidemia CVA Assessment/Plan Coronary artery disease status post stenting to the vein graft as described below. Hypertension, controlled continue to monitor. Hyperlipidemia, continue current medication next History of CVA. Cath findings: 1. Severe stenosis in the mid vein graft to the circumflex and diagonal branch successful primary stenting using Loida 4.0 x 23 mm expanded to 4.5 mm proximally and 4.25 mm distally with excellent results. 2. Patent LIM to LAD 3. Known to have severe disease in the left circumflex and LAD system that was corrected with a bypass grafts 4. Dominant right coronary system with patent stents, tortuous artery was small vessel disease 5. Normal left ventricular end-diastolic pressure NACHO FERRER MD Nov 13, 2018 07:15
--- NOTE | 2018-11-13 07:35 | Discharge Inst-Post CATH ---
Discharge Inst-CATH/EP Post Cardiac Cath/EP D/C Inst Follow Up/Plan Appointment with Dr. Hampton's office in 2-4 weeks <b>CARDIAC CATH/EP PROCEDURE DISCHARGE INSTRUCTIONS</b> Cardiac Rehab Please be expecting a follow up call from Cardiac Rehab within in one week. ACTIVITY * Go Home directly and rest. * Limit activity of the leg (or wrist if it was used) for 7 days including aerobics, swimming, jogging, bicycling, etc. * Restrict stair-climbing for 7 days if possible, if not, climb up with your non-cath leg, then bring together on the same step. * Avoid lifting, pushing, pulling or excessive movement of the affected extremity for 7 days. * Customary sexual activity may be resumed after 2 days-use caution not to use a position that strains or causes pain to the affected extremity. * No driving for 24 hours. * NO SMOKING. * Avoid straining for bowel movements for 7 days. * Gentle walking on level ground is allowed. * Returning to work will depend on the type of procedure and the results. Your doctor will discuss this with you. CALL YOUR DOCTOR FOR ANY OF THE FOLLOWING: *If bleeding from the puncture site occurs- Apply gentle pressure to site with clean cloth and call your doctor or EMS. * If a knot or lump forms under the skin, increases in size, or causes pain. * If bruising appears to be worsening or moving further down your leg instead of disappearing. * Temperature above 101 F. CARE OF YOUR GROIN INCISION; * Bruising or purple discoloration of the skin near the puncture site is common. * You may shower only, no bathtub bathing for 5 days. Be careful to avoid slipping as your leg may feel stiff. * If a closure device was used on your femoral artery, please see the attached guide regarding care of the device and your leg. * Leave dressing on FOR 24 hours. CARE OF YOUR WRIST INCISION; * Bruising or purple discoloration of the skin near the puncture site is common. * You may shower. * DO NOT submerge wrist. * Leave dressing on FOR 24 hours. NACHO HAMPTON MD Nov 13, 2018 07:35
[2018-11-13 08:18] VITALS: BP 129/88
[2018-11-13] MEDS ORDERED: CLOPIDOGREL 75 MG (PLAVIX) TABLET PO SCH (09:00)
[2018-11-13] MEDS ORDERED: NON-FORMULARY MEDICATION 1 EA EA (Losartan Potassium 50 MG) PO SCH (09:00)
[2018-11-13] MEDS ORDERED: LOSARTAN 50 MG (COZAAR) TAB PO SCH (09:00)
[2018-11-13] MEDS ORDERED: RANOLAZINE ER 500 MG TAB (RANEXA) PO SCH (09:00)
[2018-11-13] MEDS ORDERED: ASPIRIN E.C. 81 MG (ECOTRIN) TAB PO SCH (09:00)
[2018-11-13] MEDS ORDERED: eZETimibe 10 MG (ZETIA) TABLET PO SCH (09:00)
== END 2018-11-13 08:40 | disposition home or self-care (01) ==
LOC: CATH 07:45 → ICU 10:47 → CATH 11-13 08:40
PROVIDERS: ATTEND Internal Medicine Cardiovascular Disease
DX: R07.9 Chest pain, unspecified (principal); I25.10 Atherosclerotic heart disease of native coronary artery without angina pectoris; I10 Essential (primary) hypertension; E78.5 Hyperlipidemia, unspecified; Z86.73 Personal history of transient ischemic attack (TIA), and cerebral infarction without residual deficits; I65.23 Occlusion and stenosis of bilateral carotid arteries; R06.00 Dyspnea, unspecified; I49.5 Sick sinus syndrome; N40.0 Benign prostatic hyperplasia without lower urinary tract symptoms; Z79.899 Other long term (current) drug therapy; Z79.82 Long term (current) use of aspirin; Z87.891 Personal history of nicotine dependence
CPT/HCPCS: 36415; 71045; 80048; 80053; 80061; 85027; 85347; 85610; 85730; 87081; 93005; 93459

== ENCOUNTER 2018-12-22 18:36 | Observation (INO) | payer MEDICARE ==
[~2018-12-22] VITALS: Ht 175.3 cm; Wt 81.8 kg
--- OUTSIDE RECORDS SUMMARY | 2018-12-22 18:42 | XMS REPORT | Clinical Summary ---
Author Author [facility] Organization [facility] Address Unknown Phone Unavailable Care Team Providers Care Authorization Specialist Name Role Phone Susannah Dumont MD PCP Source Comments Some departments are not documenting in the electronic medical record. If you d o not see the information that you expected, contact Release of Information in [facility] [employer] Information Management department at [phone] for further assistan ce in locating additional records.[facility] Allergies No Known Allergies Medications End Date [...] Description Date Type Specialty Theron Reyes MD Other 10/08/2018 Telephone Neurology from Last 3 Months Social History Date Tobacco Use Types Packs/Day Years Used Former Smoker Cigarettes Smokeless Tobacco: Never Used Drinks/Week oz/Week Comments Alcohol Use Never Alcohol Habits Answer Date Recorded How [...] travel history available. Last Filed Vital Signs Reading Time Taken Comments Vital Sign 139/76 08/28/2018 2:32 PM CDT Blood Pressure 66 08/28/2018 2:32 PM CDT Pulse - - Temperature - - Respiratory Rate - - Oxygen Saturation - - Inhaled Oxygen Concentration 82.7 kg (182 lb 6.4 oz) 08/28/2018 2:32 PM CDT Weight - - Height - - Body Mass Index Plan of Treatment Health Maintenance Due Date Last Done Comments PHYSICAL (COMPREHENSIVE) 1944 EXAM DTAP/TDAP VACCINES (1 - 1955 Tdap) SHINGLES RECOMBINANT 1987 VACCINE (1 of 2) PNEUMONIA (PCV13/PPSV23) 2002 VACCINES (1 of 2 - PCV13) INFLUENZA VACCINE 03/10/2019 Results Not on filefrom Last 3 Months Insurance Type Payer Benefit Subscriber ID Effective Phone Address Plan / Dates Group Medicare MEDICARE MEDICARE xxxxxxxxxxx 2002-P PART A AND resent B Medicare [facility] xxxxxxxxxxxx 2018-P SUPPLEMENT resent 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
--- OUTSIDE RECORDS SUMMARY | 2018-12-22 18:42 | XMS REPORT | Encounter Summary ---
Author Author [facility] Organization [facility] Address Unknown Phone Unavailable Care Team Providers Care Revenue Investigator Name Role Phone Susannah Dumont MD PCP Reason for Visit * Reason Comments Other Encounter Details Care Team Description Date Type Department Theron Reyes MD [address] [place] [address] Other 10/08/2018 Telephone [facility] [address] [place] [address] Social History Date Tobacco Use [...] Telephone Encounter - Mulu Sanchez LPN - 10/08/2018 4:12 PM CDT Received call from pts daughter stating the pt was in the emergency room over , she is wanting to verify records on this encounter were received. Rec ords requested from [facility]. Notified daughter by phone. documented in this encounter Plan of Treatment Not on filedocumented as of this encounter Visit Diagnoses Not on filedocumented in this encounter
--- OUTSIDE RECORDS SUMMARY | 2018-12-22 18:42 | XMS REPORT | Encounter Summary ---
Author Author [facility] Organization [facility] Address Unknown Phone Unavailable Care Team Providers Care Vacuum Spindle Sander Name Role Phone Susannah Dumont MD PCP Encounter Details Care Team Description Date Type Department RidingerTaylor Memory loss; Cerebrovascular accident (CVA), unspecified mechanism (HCC); Hyperglycemia 09/08/2018 Orders Only [facility] [address] [place] [address] Social History Date Tobacco Use [...] B12 injections. Lab work and Dr. Bunn's craig mmendation faxed. documented in this encounter Plan of [...] * HEMOGLOBIN A1C (08/29/2018) Hemoglobin A1C 5.7 [facility] Specimen Blood - Blood Narrative Performed At Performing Organization Address City/[facility] Phone Number [facility] [address] [place] [address] 10A * LIPID PROFILE (08/29/2018) Cholesterol 166 [facility] Triglycerides 130 [facility] HDL 46.0 [facility] LDL 94 [facility] VLDL [facility] Non HDL [facility] Cholesterol Cholesterol/HDL 3.6 [facility] Ratio Specimen Blood - Blood Narrative Performed At Performing Organization Address City/[facility]/Zipcode Phone Number MAIN LAB [address] [place] [address] * VITAMIN B12 (08/29/2018) Specimen Blood - Blood Narrative Performed At Performing Organization Address [facility]/Zipcode Phone Number [facility] [address] [place] [address] 10A * TSH WITH FREE T4 REFLEX (08/29/2018) Specimen Blood - Blood Narrative Performed At Performing Organization Address [facility]/Zipcode Phone Number [facility] [address] [place] [address] 10A documented in this encounter Visit Diagnoses Diagnosis Memory loss Cerebrovascular accident (CVA), unspecified mechanism (HCC) Hyperglycemia Other abnormal glucose documented in this encounter
--- OUTSIDE RECORDS SUMMARY | 2018-12-22 18:42 | XMS REPORT | Encounter Summary ---
Author Author [facility] Organization [facility] Address Unknown Phone Unavailable Care Team Providers Care Automobile Designer Name Role Phone Susannah Dumont MD PCP Reason for Visit * Reason Comments New Patient Stroke 05/18/18 * Consult, Test & Treat (Routine) Referred By Contact Referred To Contact Status Reason Specialty Diagnoses / Procedures Susannah Dumont MD [address] [place] [address] [place] [address] [place] [address] No Auth Needed Neurology Diagnoses Stroke P rocedures Consult Encounter Details Care Team Description [place] [address] [place] [address] Cerebrovascular accident (CVA), unspecified mechanism (HCC) (Primary Dx); Memory loss; Hyperglycemia 08/28/2018 Office Visit [facility] [address] [place] [address] Social History Date Tobacco Use Types [...] of this encounter Last Filed Vital Signs Reading Time Taken Comments Vital Sign 139/76 08/28/2018 2:32 PM CDT Blood Pressure 66 08/28/2018 2:32 PM CDT Pulse - - Temperature - - Respiratory Rate - - Oxygen Saturation - - Inhaled Oxygen Concentration 82.7 kg (182 lb 6.4 oz) 08/28/2018 2:32 PM CDT Weight - - Height - - Body Mass Index documented in this encounter Patient Instructions * Patient Instructions* Theron Reyes MD - 08/28/2018 2:30 PM CDT - We will order labs today. - Keep taking similar medications for stroke prevention and monitor memory probl ems. STROKE What is a stroke?Stroke is the [...] a stroke depend on a lot of t hings, including: ?Which part and how much of the brain is affected ?How quickly the stroke is treated Some people who have a stroke have no lasting effects. Others lose important bra in functions. For example, some people become partly paralyzed or unable to spea k. Stroke is one of the leading causes of and disability in the world. How can you tell if someone is having a stroke?There is an easy way to re member the signs of a stroke. Just think [...] right treatment depends on what kind of strok e you are having. You need to get to the hospital very quickly to figure this ou t. People whose strokes are caused by clogged arteries can: ?Get treatments that help reopen clogged arteries. These treatments can help you recover from the stroke. ?Get medicines that prevent new blood clots. These medicines also help prevent f uture strokes. People whose strokes are caused by bleeding can: ?Have treatments that might reduce the damage caused by bleeding in or around th e brain ?Stop taking medicines that increase bleeding, or take a lower dose ?Have surgery to repair the artery or stop the bleeding (this is not always poss ible to do) Can strokes be prevented?Many strokes can be prevented, though not all. Y ou can greatly lower your chance of having a stroke by: ?Taking your medicines exactly as directed. Medicines that are especially import ant in preventing strokes include: Blood pressure medicines [...] gets clogged or closes off and then reo pens on its own. This can happen if a blood clot forms and then moves away or di ssolves. TIA stands for "transient ischemic attack." Even though TIAs do not cause lasting symptoms, they are serious. If you have a TIA, you are at high risk of having a stroke. It's important that you see a doct or and take steps to prevent that from happening. Do not ignore the symptoms of a stroke even if they go away! Follow up with primary care provider during the next weeks. RIMA Hardwick, may be contacted at [phone] for any change in symptoms or me dication issues. It may take 24-48 hours for return call. If the issue is more u rgent or emergent, then please call 911 or seek care in ED. You may also call the commercial front load operator at [phone] for scheduling. You may also use [employer] for NON-emergent communication such as refill/medicatio n questions, updates on how medications are working, etc. These emails are not r eviewed after hours or over the weekend/holidays. For refills on medications, please have your pharmacy fax a refill authorization request form to our office. Please allow at least at least 2-3 business days for refill requests. Please note that on Saturday afternoons, staff is often out early, so please try t o contact the office prior to 11AM with any requests or questions, otherwise the y may not get answered until the following operating business day. Please take i nto account holiday weekends. If you have had imaging or labs ordered today, you should hear from the office b y phone or [facility] with results whether there is something abnormal or not. If y ou do not hear from us within one week of a lab or imaging study being completed , please call the office to be sure that we have received the results. This is e specially challenging when tests are done outside of the system. FOR APPOINTMENT SCHEDULING/RESCHEDULING: Radiology department - [phone]. EEG lab & Epilepsy clinic - [phone] or [phone]. Neuropsychology clinic - [phone]. Neuromuscular clinic - [phone] or [phone]. Sleep clinic - [phone]. documented in this encounter Progress Notes * Theron Reyes MD - 08/28/2018 2:30 PM CDT Date of Service: 08/28/2018 Subjective: Angela Haile is a 83 y.o. male referred to our clinic due to stroke. History of Present Illness Angela Haile is a 83 y.o. male with past medical history of CAD s/p CABG, sick sinus syndrome s/p pacemaker, hyperlipidemia and HTN, referred to our clinic due stroke. Patient reports sudden onset speech changes when he had a stroke last May 2018. Family noticed he was having "word salad" and he was not making s ense. He was not confused and did not pass out but he lost memory of the event f or 13 hours. His speech was abnormal for several hours and then resolved. Patien t denies weakness, numbness, tingling, dizziness or facial [...] but he denies problems reading. He also repo rts slightly worse blurred vision since then. His balance has been normal and de nies recent falls or headaches. However, patient denies significant memory issue s in the past, but reports more issues in the past few months after stroke. He i s forgetful occasionally when trying to remember names of people, family helps w ith appointments and medications. Family has been supervising financials. Overa ll short term memory seems more affected with his symptoms. Patient is normally able to recognize family and close friends. He does not need help with ADLs, he is able to walk without assistance. Denies clear episodes of disorientation in t he past and he has been driving without problems. Patient has been taking Zetia (he had problems/pain with statins) and antiplatelets (AAS/Plavix). Patient adelina es other new neurological symptoms. Review of records: CT head (05/27) with no acute abnormalities. CTA head/neck (05/27) with no occlusions or significant stenosis. TTE (05/27): no shunts/clots but left atrial enlargement. Labs (2018) slightly high LDL (94). I spent more than 31 minutes reviewing outside records, including labs/studies, brain/neck imaging and PCP and neurology records (Dr. Dumont, [facility]). Review of Systems Constitutional: Negative. HENT: Negative. [...] patient denies history of snoring but reports occ asional drowsiness during the daytime. The patient reported that sleep has been abnormal with insomnia in the past. Denies history of prior strokes or cardiac a rrhythmias but reports prior CAD. No past medical [...] alert. Patient is in no acute distress, follo wing commands and cooperative. Well developed and well [...] mcdowell are full to confrontation. Pupils are e qual, round, and reactive to light and accommodation. [...] Biceps 5/5, Triceps 5/5, Finger ext 5/5, int erossei 5/5, Hip Flexion 5/5, Knee ext 5/5, Knee flex 5/5, Ankle dorsiflexion 5/ 5, Ankle plantarflexion 5/5. Normal bulk and tone in all four limbs without any evidence of an arm drift. No abnormal movements during exam. Sensory: Intact to pain, temperature and vibration in both upper/lower extremite s. Coordination is intact [id number], fine finger movements, rapidly alternatin g movements, heel to live and toe tapping. Deep tendon reflexes are 2+ in biceps, triceps, brachioradiallis and patellar bi laterally and 1+ ankle reflex. Obrien sign is absent bilaterally. Romberg sign is absent. Gait is normal based without ataxia. Fair tandem walking. NIHSS:0 Assessment and Plan: Recent ischemic stroke (unclear etiology, possible embolic). Patient with histor y of HTN, hyperlipidemia CAD s/p CABG, sick sinus syndrome s/p pacemaker, refer red to our clinic due to recent stroke last May 2018. At that time, patient presented to an outside hospital with word finding problems and lost memory of events. Patient was given IV TPA and speech problems almost resolved. MRI brain not possible due to pacemaker, CTH with no clear abnormalities, vascular imaging showed no significant stenosis and TTE was also unremarkable. Denies prior hist ory of stroke. He has been recovering and still has residual writing as well as memory issues since last hospitalization. Patient was started on antiplatelets a nd Zetia at that time and denies stroke like events since then. Patient is able to walk without assistance and denies recent falls. Denies new neurological symp toms and memory issues have been similar lately. Neurological exam with no clear foical weakness, NIHSS was 0 today. We will continue with same meds for stroke prevention, but we plan to repeat labs today. Patient may also continue with PT and keep appointment with drain tile press operator to discuss about cardioembolism. Recommendations: 1. Continue with aspirin/Plavix and cholesterol meds for vascular prevention. 2. Continue to monitor BP, PCP to adjust BP medications as needed. 3. We will order labs including lipid panel, HbA1c, TSH and B12 level. 4. PT when possible, patient advised to discuss with drain tile press operator about possibil ity of embolic stroke. 5. Patient will have a follow up appointment in 3 months. After a discussion, the patient agrees with the plan. Total time for discussion was 60 minutes, greater than 35 minutes were spent face to face specifically dis cussing my impression of stroke, recommended diagnostic studies/review of diagno stic studies, prognosis, risks and benefits of management, instructions for alex peoples, and importance of compliance. documented in this encounter Plan of Treatment Not on filedocumented as of this encounter Procedures Comments Procedure Name Priority Date/Time Associated Diagnosis ECG-SCAN 08/28/2018 12:00 AM CDT documented in this encounter Results * HEMOGLOBIN A1C (08/29/2018) Hemoglobin A1C 5.7 [facility] Specimen Blood - Blood Narrative Performed At Performing Organization Address [facility] Phone [facility] [address] [place], [place] [id number] 10A * LIPID PROFILE (08/29/2018) Cholesterol 166 [facility] Triglycerides 130 [facility] HDL 46.0 [facility] LDL 94 [facility] VLDL [facility] Non HDL [facility] Cholesterol Cholesterol/HDL 3.6 [facility] Ratio Specimen Blood - Blood Narrative Performed At Performing Organization Address City/State/Zipcode Phone Number MAIN LAB [address] [place] [address] * VITAMIN B12 (08/29/2018) Specimen Blood - Blood Narrative Performed At Performing Organization Address City/State/Zipcode Phone Number [facility] [address] [place] [address] 10A * TSH WITH FREE T4 REFLEX (08/29/2018) Specimen Blood - Blood Narrative Performed At Performing Organization Address City/[facility]/Zipcode Phone Number [facility] [address] [place] [address] 10A * ECG-SCAN (08/28/2018 12:00 AM CDT) Narrative Performed At Ordered by an unspecified provider. documented in this encounter Visit Diagnoses Diagnosis Cerebrovascular accident (CVA), unspecified mechanism (HCC) - Primary Memory loss Hyperglycemia Other abnormal glucose documented in this encounter
--- OUTSIDE RECORDS SUMMARY | 2018-12-22 18:42 | XMS REPORT | Encounter Summary ---
Author Author [facility] Organization [facility] Address Unknown Phone Unavailable Care Team Providers Care Multi Skilled Operator Name Role Phone Susannah Dumont MD PCP Reason for Visit * Reason Comments Results Encounter Details Care Team Description Date Type Department Theron Reyes MD [address] [place] [address] Results 09/11/2018 Telephone [facility] [address] [place] [address] Social History Date Tobacco Use [...] work and Dr. Bunn's craig mmendation faxed. F: [phone] * Telephone Encounter - Mulu Sanchez LPN - 09/11/2018 1:13 PM CDT ----- Message from Theron Roque MD sent at 09/10/2018 3:02 PM CDT ----- Please contact patient about these results. HbA1c was slightly high (5.7), lipid panel and TSH were normal, but B12 level was significantly low (85). I think aminata rosales should receive IM B12 shots every week x 4, then monthly x 6. He can discu ss about B12 treatment (and slightly high HbA1c level) with his PCP. If patient is not able to schedule appointments for B12 injections with PCP, we may provide this in our clinic. Thanks Theron documented in this encounter Plan of Treatment Not on filedocumented as of this encounter Visit Diagnoses Not on filedocumented in this encounter
--- OUTSIDE RECORDS SUMMARY | 2018-12-22 18:43 | XMS REPORT | CCD ---
Author Author Yojana Clark MD, [facility] Address [address] [place] [address] Phone Care Team Providers Care Manager Psychology Name Role Phone PP Unavailable CCM Unavailable Summary Purpose Interface Exchange Insurance Providers Payer name Policy type / Coverage type Covered democrat ID Effective Begin Date Effective End Date WPS Medicare Part B Medicare Part B [id number] Unknown Unknown [facility] Medicare Part B [id number] Unknown Unknown Family history Father Diagnosis Age At Onset Arthritis Unknown Hypertension Unknown Brother Diagnosis Age At Onset Cancer Unknown Heart Attack Unknown Mother Diagnosis Age At Onset Skin cancer Unknown Cancer Unknown Social History Social History Element Codes Description Effective Dates Marital status Unknown Amber 07/24/2016 Number of children Unknown 3 04/01/[address]: 1165234 Former smoker 1995 04/01/[address]: 078288537 Never drinks alcohol 04/01/2015 Allergies, Adverse Reactions, Alerts Substance Reaction Codes Entered Date Inactivated Date Status * NO KNOWN DRUG ALLERGIES Unknown 04/01/2015 No Inactive Date Active Past Medical History Illness Codes Condition Status Onset Date Resolved Date Vitamin B12 deficiency anemia, unspecified ICD-9: 281.1 ICD-10: D51.9 Active 09/11/2018 Unknown Essential (primary) hypertension ICD-9: 401.9 ICD-10: I10 Active 03/31/2015 Unknown Orthostatic hypotension ICD-9: 458.0 ICD-10: I95.1 Active 10/16/2018 Unknown Anemia, unspecified ICD- 9: 285.9 ICD-10: D64.9 Active 03/31/2015 Unknown Acute bronchitis due to other specified organisms ICD-9: 466.0 ICD-10: J20.8 Active 06/24/2018 Unknown 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 ICD-9: 434.91 ICD-10: I63.59 Active 05/26/2018 Unknown Essential (primary) hypertension ICD-9: 401.1 ICD-10: I10 Active 01/23/2016 Unknown Mixed hyperlipidemia ICD- 9: 272.2 ICD-10: E78.2 Active 07/24/2016 Unknown Personal history of transient ischemic attack (TIA), and cerebral infarction without residual deficits ICD-9: V12.54 ICD-10: Z86.73 Active 05/26/2018 Unknown 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 ICD-10: I25.10 Active 07/24/2016 Unknown Impacted cerumen, right ear ICD-9: 380.4 ICD-10: H61.21 Active 01/31/2016 Unknown BPH Unknown Active 04/01/2015 Unknown carotid stenosis Unknown Active 04/01/2015 Unknown Hyperlipidemia Unknown Active 04/01/2015 Unknown Hypertension Unknown Active 04/01/2015 Unknown Gross hematuria ICD-9: 599.71 ICD-10: R31.0 Active 03/31/2015 Unknown Problems Condition Codes Effective Dates Condition Status Vitamin B12 deficiency anemia, unspecified ICD-9: 281.1 ICD-10: D51.9 09/11/2018 Active Essential (primary) hypertension ICD-9: 401.9 ICD-10: I10 03/31/2015 Active Orthostatic hypotension ICD-9: 458.0 ICD-10: I95.1 10/16/2018 Active Anemia, unspecified ICD- 9: 285.9 ICD-10: D64.9 03/31/2015 Active Acute bronchitis due to other specified organisms ICD-9: 466.0 ICD-10: J20.8 06/24/2018 Active 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 ICD-9: 434.91 ICD-10: I63.59 05/26/2018 Active Essential (primary) hypertension ICD-9: 401.1 ICD-10: I10 01/23/2016 Active Mixed hyperlipidemia ICD- 9: 272.2 ICD-10: E78.2 07/24/2016 Active Personal history of transient ischemic attack (TIA), and cerebral infarction without residual deficits ICD-9: V12.54 ICD-10: Z86.73 05/26/2018 Active 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 ICD-10: I25.10 07/24/2016 Active Impacted cerumen, right ear ICD-9: 380.4 ICD-10: H61.21 01/31/2016 Active BPH Unknown 04/01/2015 Active carotid stenosis Unknown 04/01/2015 Active Hyperlipidemia Unknown 04/01/2015 Active Hypertension Unknown 04/01/2015 Active Gross hematuria ICD-9: 599.71 ICD-10: R31.0 03/31/2015 Active Medications Medication Codes Instructions Start Date Stop Date Status Fill Instructions Lexapro 10 mg tablet RxNorm: 760914 1 Tablet(s) PO daily 11/25/2018 03/24/2019 Active Lexapro 10 mg tablet RxNorm: 825511 1 Tablet(s) PO daily 11/25/2018 11/24/2018 Inactive cyanocobalamin (vit B-12) 1,000 mcg/mL injection solution RxNorm: 899386 Milliliter(s) Inj 11/17/2018 11/17/2018 Inactive metoprolol tartrate 50 mg tablet RxNorm: 154963 1 Tablet(s) PO BID 10/16/2018 No Stop Date Active clopidogrel 75 mg tablet RxNorm: 586186 1 Tablet(s) PO daily 10/16/2018 No Stop Date Active metoprolol tartrate 25 mg tablet RxNorm: 743972 1 Tablet(s) PO BID 10/16/2018 10/15/2018 Inactive cyanocobalamin (vit B-12) 1,000 mcg/mL injection solution RxNorm: 562865 Milliliter(s) Inj 10/09/2018 10/09/2018 Inactive cyanocobalamin (vit B-12) 1,000 mcg/mL injection solution RxNorm: 615518 1 Milliliter(s) Inj 09/30/2018 09/30/2018 Inactive cyanocobalamin (vit B-12) 1,000 mcg/mL injection solution RxNorm: 600419 1 Milliliter(s) Inj 09/23/2018 09/23/2018 Inactive cyanocobalamin (vit B-12) 1,000 mcg/mL injection solution RxNorm: 283851 Milliliter(s) Inj 09/11/2018 09/11/2018 Inactive Ativan 0.5 mg tablet RxNorm: 693260 1/2-1 Tablet(s) PO Q8 as needed 08/08/2018 10/15/2018 Inactive Xanax 0.25 mg tablet RxNorm: 677033 1 Tablet(s) PO Q6 08/07/2018 08/07/2018 Inactive doxycycline hyclate 100 mg capsule RxNorm: 2071204 1 Capsule(s) PO BID 06/24/2018 07/03/2018 Inactive prednisone 20 mg tablet RxNorm: 322404 2 Tablet(s) PO daily 06/24/2018 06/28/2018 Inactive Kenalog 40 mg/mL suspension for injection RxNorm: 4305195 Milliliter(s) Inj 06/24/2018 06/24/2018 Inactive coenzyme Q10 100 mg tablet RxNorm: 451854 1 Tablet(s) PO daily 07/24/2016 02/18/2017 Inactive Norvasc 5 mg tablet RxNorm: 690143 1 Tablet(s) PO daily No Start Date Active Vitamin D3 1,000 unit capsule RxNorm: 347679 1 Capsule(s) PO daily No Start Date Active ezetimibe 10 mg tablet RxNorm: 101419 1 Tablet(s) PO daily No Start Date Active Ranexa 500 mg tablet,extended release RxNorm: 873936 1 Tablet(s) PO BID No Start Date Active aspirin 81 mg capsule,delayed release RxNorm: 683861 1 Capsule(s) PO No Start Date Active losartan 50 mg tablet RxNorm: 751316 1 Tablet(s) PO daily No Start Date Active turmeric root extract 500 mg capsule RxNorm: 3615570 Capsule(s) PO daily No Start Date 10/19/2015 Inactive Aleve 220 mg capsule RxNorm: 2919280 1 Capsule(s) PO daily No Start Date 10/19/2015 Inactive metoprolol tartrate 25 mg tablet RxNorm: 596441 1 Tablet(s) PO BID No Start Date 10/15/2018 Inactive clopidogrel 75 mg tablet RxNorm: 434722 Tablet(s) PO daily No Start Date 01/23/2016 Inactive simvastatin 5 mg tablet RxNorm: 482337 1 Tablet(s) PO QHS No Start Date 05/20/2017 Inactive Ativan 0.5 mg tablet RxNorm: 897028 1/2-1 Tablet(s) PO Q8 as needed No Start Date 08/07/2018 Inactive Aleve PM 220 mg-25 mg tablet RxNorm: 9845464 1 Tablet(s) PO QHS No Start Date 01/23/2016 Inactive magnesium RxNorm: PO No Start Date 10/19/2015 Inactive Xanax 0.25 mg tablet RxNorm: 506909 1 Tablet(s) PO Q6 No Start Date 2018 Inactive Fish Oil 1,000 mg capsule RxNorm: 1 Capsule(s) PO daily No Start Date 10/19/2015 Inactive Vitamin D3 2,000 unit tablet RxNorm: 340279 1 Tablet(s) PO daily No Start Date 10/19/2015 Inactive benazepril 10 mg tablet RxNorm: 199695 1 Tablet(s) PO daily No Start Date 10/15/2018 Inactive pantoprazole 20 mg tablet,delayed release RxNorm: 231512 1 Tablet(s) PO daily No Start Date 01/23/2016 Inactive Osteo Bi-Flex 250 mg-200 mg tablet RxNorm: 006018 Tablet(s) PO No Start Date 11/19/2016 Inactive Medication Administered Medication Codes Instructions Start Date Status cyanocobalamin (vit B-12) 1,000 mcg/mL injection solution RxNorm: 918400 Milliliter 11/17/2018 No longer Active cyanocobalamin (vit B-12) 1,000 mcg/mL injection solution RxNorm: 121613 Milliliter 10/09/2018 No longer Active cyanocobalamin (vit B-12) 1,000 mcg/mL injection solution RxNorm: 987500 1Milliliter 09/30/2018 No longer Active cyanocobalamin (vit B-12) 1,000 mcg/mL injection solution RxNorm: 861251 1Milliliter 09/23/2018 No longer Active cyanocobalamin (vit B-12) 1,000 mcg/mL injection solution RxNorm: 838167 Milliliter 09/11/2018 No longer Active Kenalog 40 mg/mL suspension for injection RxNorm: 7380028 Milliliter 06/24/2018 No longer Active Immunizations No Immunization data Assessments Condition Codes Effective Dates Vitamin B12 deficiency anemia, unspecified ICD-10: D51.9 ICD-9: 281.1 11/17/2018 Essential (primary) hypertension ICD-10: I10 ICD-9: 401.9 10/16/2018 Orthostatic hypotension ICD-10: I95.1 ICD-9: 458.0 10/16/2018 Acute bronchitis due to other specified organisms [...] ICD-9: V12.54 05/26/2018 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-10: I25.10 ICD-9: 414.00 07/24/2016 Impacted cerumen, right ear ICD-10: H61.21 ICD-9: 380.4 02/01/2016 Anemia, unspecified ICD-10: D64.9 ICD-9: 285.9 04/01/2015 Gross hematuria ICD-10: R31.0 ICD-9: 599.71 04/01/2015 Reason For Visit Reason For Visit Effective Dates Notes hypertension 10/16/2018 hypertension 06/24/2018 Hospital Follow Up 05/26/2018 hypertension 05/21/2017 left hip pain hypertension 11/20/2016 hypertension 07/24/2016 hypertension 01/24/2016 Hospital Follow Up 10/20/2015 Hospital Follow Up 10/19/2015 urinary retention/hesitancy 04/01/2015 has blood clots Results Observation Observation Code Item Item Code Result Date Comp Metabolic Qse983 NA 136 mEq/L 07/25/2016 Comp Metabolic Ycs370 K 4.1 mEq/L 07/25/2016 Comp Metabolic Iys136 CL 102 mEq/L 07/25/2016 Comp Metabolic Abw583 CO2 26.0 mEq/L 07/25/2016 Comp Metabolic Lya256 ANION GAP 12 07/25/2016 Comp Metabolic Awi747 GLUCOSE 105 mg/dL 07/25/2016 Comp Metabolic Ebp561 Creat 1.1 mg/dL 07/25/2016 Comp Metabolic Zwg926 eGFR 67 ml/min/1.73m2 07/25/2016 Comp Metabolic Xdd988 BUN 20 mg/dL 07/25/2016 Comp Metabolic Qni057 B/C Ratio 17.9 Ratio 07/25/2016 Comp Metabolic Knn520 CALCIUM 8.8 mg/dL 07/25/2016 Comp Metabolic Bgg528 ALK PHOS 71 U/L 07/25/2016 Comp Metabolic Qdn774 AST(SGOT) 14 U/L 07/25/2016 Comp Metabolic Jgj870 ALT(SGPT) 13 U/L 07/25/2016 Comp Metabolic Bpo690 BILI T 0.6 mg/dL 07/25/2016 Comp Metabolic Qfb797 ALBUMIN 3.9 g/dL 07/25/2016 Comp Metabolic Tra710 TPRO 6.4 g/dL 07/25/2016 Comp Metabolic Obj672 GLOB 2.5 g/dL 07/25/2016 Comp Metabolic Ykk611 A/G Ratio 1.5 Ratio 07/25/2016 Comp Metabolic Mmy080 Osmo 275 mOsmo 07/25/2016 Lipid Ord30 CHOL [...] 29.8 pg 07/25/2016 Cbc With Differential Ord2 [place]% 14.4 % 07/25/2016 Cbc With Differential Ord2 [...] 1.14 K/ul 07/25/2016 Cbc With Differential Ord2 [place] ABS# 0.8 K/ul 07/25/2016 Cbc With Differential [...] Ord2 RDW 14.9 % 04/01/2015 Comp Metabolic Kib810 NA 124 mEq/L 04/01/2015 Comp Metabolic Kdb537 K 4.2 mEq/L 04/01/2015 Comp Metabolic Qxm006 CL 93 mEq/L 04/01/2015 Comp Metabolic Big229 CO2 24.0 mEq/L 04/01/2015 Comp Metabolic Stp148 ANION GAP 11 04/01/2015 Comp Metabolic Meq205 GLUCOSE 103 mg/dL 04/01/2015 Comp Metabolic Xtz543 Creat 1.0 mg/dL 04/01/2015 Comp Metabolic Eiv223 eGFR 75 ml/min/1.73m2 04/01/2015 Comp Metabolic Vbh411 BUN 13 mg/dL 04/01/2015 Comp Metabolic Quv756 B/C Ratio 12.7 Ratio 04/01/2015 Comp Metabolic Tou689 CALCIUM 9.1 mg/dL 04/01/2015 Comp Metabolic Wbw492 ALK PHOS 65 U/L 04/01/2015 Comp Metabolic Lar702 AST(SGOT) 15 U/L 04/01/2015 Comp Metabolic Szd525 ALT(SGPT) 15 U/L 04/01/2015 Comp Metabolic Vda952 BILI T 1.1 mg/dL 04/01/2015 Comp Metabolic Eoa818 ALBUMIN 4.0 g/dL 04/01/2015 Comp Metabolic Aml863 TPRO 6.2 g/dL 04/01/2015 Comp Metabolic Lil988 GLOB 2.2 g/dL 04/01/2015 Comp Metabolic Qqc107 A/G Ratio 1.8 Ratio 04/01/2015 Comp Metabolic Ols338 Osmo 250 mOsmo 04/01/2015 Review of Systems System Result Effective Dates Constitutional recent illness 10/16/2018 Constitutional No anorexia 10/16/2018 Constitutional No night sweats 10/16/2018 Constitutional No chills 10/16/2018 Constitutional No diaphoresis 10/16/2018 Constitutional fatigue 10/16/2018 Constitutional No fever 10/16/2018 Constitutional No insomnia 10/16/2018 Constitutional No malaise 10/16/2018 Eyes No eye discharge 10/16/2018 Eyes No eye erythema 10/16/2018 Ears/Nose/Throat/Neck No dizziness 10/16/2018 Ears/Nose/Throat/Neck No headache 10/16/2018 Cardiovascular No chest pain/pressure 10/16/2018 Cardiovascular No dyspnea 10/16/2018 Cardiovascular No edema 10/16/2018 Cardiovascular hypertension 10/16/2018 Respiratory No productive sputum 10/16/2018 Respiratory No chest congestion 10/16/2018 Gastrointestinal No abdominal pain 10/16/2018 Gastrointestinal constipation 10/16/2018 Gastrointestinal No diarrhea 10/16/2018 Genitourinary/Nephrology No nocturia 10/16/2018 Musculoskeletal arthralgia(s) 10/16/2018 Musculoskeletal joint complaint 10/16/2018 Dermatologic No rash 10/16/2018 Neurologic No alteration of consciousness 10/16/2018 Psychiatric No anxiety 10/16/2018 Psychiatric No depression 10/16/2018 Constitutional recent illness 06/24/2018 Constitutional chills 06/24/2018 Constitutional No fever 06/24/2018 Eyes No eye erythema 06/24/2018 Ears/Nose/Throat/Neck nasal allergies 06/24/2018 Ears/Nose/Throat/Neck nasal discharge 06/24/2018 Ears/Nose/Throat/Neck postnasal drip 06/24/2018 Ears/Nose/Throat/Neck sinus congestion 06/24/2018 Cardiovascular No chest pain/pressure 06/24/2018 Respiratory productive sputum 06/24/2018 Respiratory cough 06/24/2018 Respiratory wheezing 06/24/2018 Gastrointestinal No abdominal pain 06/24/2018 Musculoskeletal No joint complaint 06/24/2018 Dermatologic No rash 06/24/2018 Neurologic No alteration of consciousness 06/24/2018 Neurologic No mental status change 06/24/2018 Constitutional No recent illness 05/26/2018 Constitutional No anorexia 05/26/2018 Constitutional No night sweats 05/26/2018 Constitutional No chills 05/26/2018 Constitutional No diaphoresis 05/26/2018 Constitutional fatigue 05/26/2018 Constitutional No fever 05/26/2018 Constitutional No insomnia 05/26/2018 Constitutional No malaise 05/26/2018 Eyes No eye discharge 05/26/2018 Eyes No eye erythema 05/26/2018 Ears/Nose/Throat/Neck No dizziness 05/26/2018 Ears/Nose/Throat/Neck No headache 05/26/2018 Cardiovascular No chest pain/pressure 05/26/2018 Cardiovascular No dyspnea 05/26/2018 Cardiovascular No edema 05/26/2018 Respiratory No productive sputum 05/26/2018 Respiratory No chest congestion 05/26/2018 Gastrointestinal No abdominal pain 05/26/2018 Gastrointestinal constipation 05/26/2018 Gastrointestinal No diarrhea 05/26/2018 Genitourinary/Nephrology No nocturia 05/26/2018 Musculoskeletal arthralgia(s) 05/26/2018 Musculoskeletal joint complaint 05/26/2018 Dermatologic No rash 05/26/2018 Neurologic No alteration of consciousness 05/26/2018 Psychiatric No anxiety 05/26/2018 Psychiatric No depression 05/26/2018 Cardiovascular hypertension 05/26/2018 Constitutional No recent illness 05/21/2017 Constitutional No anorexia 05/21/2017 Constitutional No night sweats 05/21/2017 Constitutional No chills 05/21/2017 Constitutional No diaphoresis 05/21/2017 Constitutional fatigue 05/21/2017 Constitutional No fever 05/21/2017 Constitutional No insomnia 05/21/2017 Constitutional No malaise 05/21/2017 Eyes No eye discharge 05/21/2017 Eyes No eye erythema 05/21/2017 Ears/Nose/Throat/Neck No dizziness 05/21/2017 Ears/Nose/Throat/Neck No headache 05/21/2017 Cardiovascular No chest pain/pressure 05/21/2017 Cardiovascular No dyspnea 05/21/2017 Cardiovascular No edema 05/21/2017 Respiratory No productive sputum 05/21/2017 Respiratory No chest congestion 05/21/2017 Gastrointestinal No abdominal pain 05/21/2017 Gastrointestinal constipation 05/21/2017 Gastrointestinal No diarrhea 05/21/2017 Musculoskeletal joint complaint 05/21/2017 Dermatologic No rash 05/21/2017 Neurologic No alteration of consciousness 05/21/2017 Psychiatric No anxiety 05/21/2017 Psychiatric No depression 05/21/2017 Musculoskeletal arthralgia(s) 05/21/2017 Genitourinary/Nephrology No nocturia 05/21/2017 Constitutional No recent illness 11/20/2016 Constitutional No anorexia 11/20/2016 Constitutional No night sweats 11/20/2016 Constitutional No chills 11/20/2016 Constitutional No diaphoresis 11/20/2016 Constitutional No fatigue 11/20/2016 Constitutional No fever 11/20/2016 Constitutional No insomnia 11/20/2016 Constitutional No malaise 11/20/2016 Eyes No eye discharge 11/20/2016 Eyes No eye erythema 11/20/2016 Ears/Nose/Throat/Neck No dizziness 11/20/2016 Ears/Nose/Throat/Neck No headache 11/20/2016 Cardiovascular No chest pain/pressure 11/20/2016 Cardiovascular No dyspnea 11/20/2016 Cardiovascular No edema 11/20/2016 Respiratory No productive sputum 11/20/2016 Respiratory No chest congestion 11/20/2016 Gastrointestinal No abdominal pain 11/20/2016 Gastrointestinal constipation 11/20/2016 Gastrointestinal No diarrhea 11/20/2016 Genitourinary/Nephrology No dysuria 11/20/2016 Genitourinary/Nephrology No hematuria 11/20/2016 Musculoskeletal No joint complaint 11/20/2016 Dermatologic No rash 11/20/2016 Neurologic No alteration of consciousness 11/20/2016 Psychiatric No anxiety 11/20/2016 Psychiatric No depression 11/20/2016 Constitutional No recent illness 07/24/2016 Constitutional No anorexia 07/24/2016 Constitutional No night sweats 07/24/2016 Constitutional No chills 07/24/2016 Constitutional No diaphoresis 07/24/2016 Constitutional No fatigue 07/24/2016 Constitutional No fever 07/24/2016 Constitutional No insomnia 07/24/2016 Constitutional No malaise 07/24/2016 Eyes No eye discharge 07/24/2016 Eyes No eye erythema 07/24/2016 Ears/Nose/Throat/Neck No dizziness 07/24/2016 Ears/Nose/Throat/Neck No headache 07/24/2016 Cardiovascular No chest pain/pressure 07/24/2016 Cardiovascular No dyspnea 07/24/2016 Cardiovascular No edema 07/24/2016 Respiratory No productive sputum 07/24/2016 Respiratory No chest congestion 07/24/2016 Gastrointestinal No abdominal pain 07/24/2016 Gastrointestinal constipation 07/24/2016 Gastrointestinal No diarrhea 07/24/2016 Genitourinary/Nephrology dysuria 07/24/2016 Genitourinary/Nephrology hematuria 07/24/2016 Genitourinary/Nephrology urinary retention/hesitancy 07/24/2016 Musculoskeletal No joint complaint 07/24/2016 Dermatologic No rash 07/24/2016 Neurologic No alteration of consciousness 07/24/2016 Psychiatric No anxiety 07/24/2016 Psychiatric No depression 07/24/2016 Constitutional recent illness 01/24/2016 Constitutional No anorexia 01/24/2016 Constitutional No night sweats 01/24/2016 Constitutional No chills 01/24/2016 Constitutional No diaphoresis 01/24/2016 Constitutional No fatigue 01/24/2016 Ears/Nose/Throat/Neck No dizziness 01/24/2016 Ears/Nose/Throat/Neck No headache 01/24/2016 Cardiovascular No chest pain/pressure 01/24/2016 Cardiovascular No dyspnea 01/24/2016 Cardiovascular No edema 01/24/2016 Respiratory No productive sputum 01/24/2016 Respiratory No chest congestion 01/24/2016 Gastrointestinal No abdominal pain 01/24/2016 Gastrointestinal constipation 01/24/2016 Gastrointestinal No diarrhea 01/24/2016 Musculoskeletal No joint complaint 01/24/2016 Neurologic No alteration of consciousness 01/24/2016 Psychiatric No anxiety 01/24/2016 Psychiatric No depression 01/24/2016 Endocrine No dry or coarse skin 01/24/2016 Constitutional recent illness 10/20/2015 Constitutional No anorexia 10/20/2015 Constitutional No night sweats 10/20/2015 Constitutional No chills 10/20/2015 Constitutional No diaphoresis 10/20/2015 Constitutional No fatigue 10/20/2015 Ears/Nose/Throat/Neck No dizziness 10/20/2015 Ears/Nose/Throat/Neck No headache 10/20/2015 Cardiovascular No chest pain/pressure 10/20/2015 Cardiovascular No dyspnea 10/20/2015 Cardiovascular No edema 10/20/2015 Respiratory No productive sputum 10/20/2015 Respiratory No chest congestion 10/20/2015 Gastrointestinal No abdominal pain 10/20/2015 Gastrointestinal constipation 10/20/2015 Gastrointestinal No diarrhea 10/20/2015 Musculoskeletal No joint complaint 10/20/2015 Neurologic No alteration of consciousness 10/20/2015 Psychiatric No anxiety 10/20/2015 Psychiatric No depression 10/20/2015 Endocrine No dry or coarse skin 10/20/2015 Constitutional No recent illness 04/01/2015 Constitutional No anorexia 04/01/2015 Constitutional No night sweats 04/01/2015 Constitutional No chills 04/01/2015 Constitutional No diaphoresis 04/01/2015 Constitutional No fatigue 04/01/2015 Constitutional No fever 04/01/2015 Constitutional No insomnia 04/01/2015 Constitutional No malaise 04/01/2015 Constitutional No weight loss 04/01/2015 Constitutional No weight gain 04/01/2015 Eyes No eye discharge 04/01/2015 Eyes No eye erythema 04/01/2015 Ears/Nose/Throat/Neck No dizziness 04/01/2015 Ears/Nose/Throat/Neck No headache 04/01/2015 Cardiovascular No chest pain/pressure 04/01/2015 Cardiovascular No dyspnea 04/01/2015 Cardiovascular No edema 04/01/2015 Respiratory No productive sputum 04/01/2015 Respiratory No chest congestion 04/01/2015 Gastrointestinal No abdominal pain 04/01/2015 Gastrointestinal constipation 04/01/2015 Gastrointestinal No diarrhea 04/01/2015 Genitourinary/Nephrology dysuria 04/01/2015 Genitourinary/Nephrology urinary retention/hesitancy 04/01/2015 Genitourinary/Nephrology hematuria 04/01/2015 Musculoskeletal No joint complaint 04/01/2015 Dermatologic No rash 04/01/2015 Neurologic No alteration of consciousness 04/01/2015 Psychiatric No anxiety 04/01/2015 Psychiatric No depression 04/01/2015 Endocrine No dry or coarse skin 04/01/2015 Physical Exam Exam Name System Name Item Name Status Result Effective Dates Notes Full Exam - General 1994 Constitutional general appearance Overall: well developed 10/16/2018 None Full Exam - General 1994 Constitutional general appearance Overall: in no acute distress 10/16/2018 None Full Exam - General 1994 Constitutional general appearance Overall: well nourished 10/16/2018 None Full Exam - General 1994 Eyes conjunctiva/eyelids Overall: conjunctiva clear 10/16/2018 None Full Exam - General 1995 Ears/Nose/Throat otoscopic exam Overall: external auditory canals clear 10/16/2018 None Full Exam - General 1995 Ears/Nose/Throat otoscopic exam Overall: tympanic membranes clear 10/16/2018 None Full Exam - General 1994 Ears/Nose/Throat oral cavity/pharynx/larynx Overall: oral mucosa clear 10/16/2018 None Full Exam - General 1994 Respiratory auscultation Overall: breath sounds clear bilaterally 10/16/2018 None Full Exam - General 1994 Respiratory respiratory effort/rhythm Overall: no retractions 10/16/2018 None Full Exam - General 1994 Respiratory respiratory effort/rhythm Overall: normal rate 10/16/2018 None Full Exam - General 1994 Cardiovascular auscultation of heart Overall: regular rate 10/16/2018 None Full Exam - General 1994 Cardiovascular auscultation of heart Overall: normal heart sounds 10/16/2018 None Full Exam - General 1994 Musculoskeletal gait and station Overall: normal gait 10/16/2018 None Full Exam - General 1994 Musculoskeletal gait and station Overall: normal station 10/16/2018 None Full Exam - General 1994 Neurologic cranial nerves Overall: crainial nerves 2 - 12 grossly intact 10/16/2018 None Full Exam - General 1994 Psychiatric orientation/consciousness Overall: oriented to person, place and time 10/16/2018 None Full Exam - General 1994 Constitutional general appearance Overall: well developed 06/24/2018 None Full Exam - General 1994 Constitutional general appearance Overall: in no acute distress 06/24/2018 None Full Exam - General 1994 Constitutional general appearance Overall: well nourished 06/24/2018 None Full Exam - General 1994 Eyes conjunctiva/eyelids Overall: conjunctiva clear 06/24/2018 None Full Exam - General 1994 Eyes conjunctiva/eyelids Overall: eyelids normal 06/24/2018 None Full Exam - General 1994 Ears/Nose/Throat otoscopic exam Overall: external auditory canals clear 06/24/2018 None Full Exam - General 1994 Ears/Nose/Throat otoscopic exam Tympanic membrane: air-fluid level 06/24/2018 None Full Exam - General [...] None Full Exam - General 1994 Eyes conjunctiva/eyelids Overall: conjunctiva clear 05/26/2018 None Full Exam [...] None Full Exam - General 1994 Eyes conjunctiva/eyelids Overall: conjunctiva clear 05/21/2017 None Full Exam [...] None Full Exam - General 1994 Eyes conjunctiva/eyelids Overall: conjunctiva clear 11/20/2016 None Full Exam [...] None Full Exam - General 1994 Eyes conjunctiva/eyelids Overall: conjunctiva clear 07/24/2016 None Full Exam [...] None Full Exam - General 1994 Eyes conjunctiva/eyelids Overall: conjunctiva clear 01/24/2016 None Full Exam [...] None Full Exam - General 1994 Eyes conjunctiva/eyelids Overall: conjunctiva clear 10/20/2015 None Full Exam [...] None Full Exam - General 1994 Eyes conjunctiva/eyelids Overall: conjunctiva clear 04/01/2015 None Procedures Procedure Codes Date THER/PROPH/DIAG INJ SC/IM CPT-4: 23226 11/17/2018 VITAMIN B12 INJECTION CPT- 4: J3420 11/17/2018 VITAMIN B12 INJECTION CPT- 4: J3420 10/09/2018 THER/PROPH/DIAG INJ SC/IM CPT-4: 06932 10/09/2018 THER/PROPH/DIAG INJ SC/IM CPT-4: 51537 09/30/2018 VITAMIN B12 INJECTION CPT- 4: J3420 09/30/2018 THER/PROPH/DIAG INJ SC/IM CPT-4: 06674 09/23/2018 VITAMIN B12 INJECTION CPT- 4: J3420 09/23/2018 THER/PROPH/DIAG INJ SC/IM CPT-4: 79430 09/11/2018 VITAMIN B12 INJECTION CPT- 4: J3420 09/11/2018 THER/PROPH/DIAG INJ SC/IM CPT-4: 47885 06/24/2018 TRIAMCINOLONE ACET INJ NOS CPT-4: J3301 06/24/2018 Vital Signs Date Vital 10/16/2018 Blood Pressure 1: 138/74 Code: 8480-6 BMI: 26.5 Code: 99794-2 Heart Rate 1: 60 bpm Height: 5'10" SpO2: 97% Weight: 185 lbs 06/24/2018 Blood Pressure 1: 150/88 Code: 8480-6 BMI: 27.0 Code: 81531-6 Heart Rate 1: 85 bpm Height: 5'10" SpO2: 98% Temperature: 36.8 (C) / 98.2 (F) Weight: 188 lbs 05/26/2018 Blood Pressure 1: 128/68 Code: 8480-6 BMI: 27.0 Code: 32954-0 Heart Rate 1: 62 bpm Height: 5'10" SpO2: 99% Weight: 188 lbs 05/21/2017 Blood Pressure 1: 142/84 Code: 8480-6 BMI: 27.1 Code: 96573-4 Heart Rate 1: 75 bpm Height: 5'10" SpO2: 97% Weight: 189 lbs 11/20/2016 Blood Pressure 1: 130/88 Code: 8480-6 BMI: 27.7 Code: 40454-2 Heart Rate 1: 80 bpm Height: 5'10" SpO2: 95% Weight: 193 lbs 07/24/2016 Blood Pressure 1: 132/78 Code: 8480-6 BMI: 27.7 Code: 78087-4 Heart Rate 1: 78 bpm Height: 5'10" SpO2: 98% Weight: 193 lbs 01/24/2016 Blood Pressure 1: 140/76 Code: 8480-6 BMI: 27.7 Code: 45580-3 Heart Rate 1: 83 bpm Height: 5'10" SpO2: 95% Weight: 193 lbs 10/20/2015 Blood Pressure 1: 106/66 Code: 8480-6 BMI: 27.3 Code: 84841-2 Heart Rate 1: 75 bpm Height: 5'10" SpO2: 97% Weight: 190 lbs 8 oz 10/19/2015 Height: 5'10" 04/01/2015 Blood Pressure 1: 118/62 Code: 8480-6 BMI: 27.0 Code: 90322-1 Heart Rate 1: 77 bpm Height: 5'10" SpO2: 95% Weight: 188 lbs Functional Status No Functional Status data History of Present Illness Symptom Name Status Result Effective Date Notes Onset and Resolution ongoing 10/16/2018 None Onset of Symptom during adulthood 10/16/2018 None Blood Pressure Values not checking blood pressure at home 10/16/2018 None Alleviating Factors medication 10/16/2018 None Pertinent Findings Denies anxiety 10/16/2018 None Pertinent Findings Denies decreased energy 10/16/2018 None Pertinent Findings Denies dizziness 10/16/2018 None Pertinent Findings Denies dyspnea 10/16/2018 None Pertinent Findings Denies edema 10/16/2018 None _ Other: stroke 10/16/2018 None Onset and Resolution ongoing 06/24/2018 None Onset of Symptom during adulthood 06/24/2018 None Blood Pressure Values not checking blood pressure at home 06/24/2018 None Alleviating Factors medication 06/24/2018 None Pertinent Findings Denies anxiety 06/24/2018 None Pertinent Findings Denies decreased energy 06/24/2018 None Pertinent Findings Denies dizziness 06/24/2018 None Pertinent Findings Denies dyspnea 06/24/2018 None Pertinent Findings Denies edema 06/24/2018 None _ Other: stroke 05/26/2018 None Quality acute illness 05/26/2018 None Onset [...] placed Saturday -removed Saturday at Dr Mccormack's office-still passing blood clots urinary retention/hesitancy Pertinent Findings bladder pain 04/01/2015 intermittent urinary retention/hesitancy Pertinent Findings Denies fever 04/01/2015 None urinary retention/hesitancy Pertinent Findings Denies nausea 04/01/2015 None urinary retention/hesitancy Pertinent Findings urinary urgency 04/01/2015 None Advance Directives No Advance Directive data Encounters Encounter Performer Location Codes Date ([id number]) [id number] EST. PATIENT, LEVEL IV Diagnosis: Essential (primary) hypertension[ICD10: I10] Diagnosis: Orthostatic hypotension[ICD10: I95.1] Susannah Dumont MD, [facility] CPT-4: 97075 10/16/2018 [id number] EST. PATIENT, LEVEL IV Diagnosis: Acute bronchitis due to other specified organisms[ICD10: J20.8] Lizzette Dumont MD, [facility] CPT-4: 36930 06/24/2018 [id number]) [id number] EST. PATIENT, LEVEL IV Diagnosis: Essential (primary) hypertension[ICD10: I10] Diagnosis: Mixed hyperlipidemia[ICD10: E78.2] Diagnosis: Personal history of transient ischemic attack (TIA), and cerebral infarction without residual deficits[ICD10: Z86.73] Diagnosis: 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[ICD10: I63.59] [facility] CPT-4: 59640 05/26/2018 [id number]) [id number] EST. PATIENT, LEVEL IV Diagnosis: Essential (primary) hypertension[ICD10: I10] Diagnosis: Mixed hyperlipidemia[ICD10: E78.2] Susannah Dumont MD, [facility] CPT- 4: 64742 05/21/2017 ([id number]) 37756 EST. PATIENT, LEVEL IV Diagnosis: Essential (primary) hypertension[ICD10: I10] Diagnosis: Mixed hyperlipidemia[ICD10: E78.2] Susannah Dumont MD, [facility] CPT- 4: 68412 11/20/2016 ([id number]) 32912 EST. 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 PATIENT, LEVEL III Diagnosis: Essential (primary) hypertension[ICD10: I10] Susannah Dumont MD, [facility] CPT-4: 49102 01/24/2016 ([id number]) 53829 EST. PATIENT, LEVEL III Diagnosis: Essential (primary) hypertension[ICD10: I10] Susannah Dumont MD, [facility] CPT-4: 01428 10/20/2015 ([id number]) OFFICE VISIT, NEW - LEVEL 3 Diagnosis: Essential (primary) hypertension[ICD10: I10] Diagnosis: Gross hematuria[ICD10: R31.0] Diagnosis: Anemia, unspecified[ICD10: D64.9] Yojana Dumont MD, [facility] CPT- 4: 64585 04/01/2015 Plan of Care Planned Activity Notes Codes Status Date Appointment: Injection 11/17/2018 Patient Education: Patient Medication Summary Completed 11/17/2018 Visit Plan: Hypertension - well controlled - continue with current medications, continue with no added salt diet. Pt has been encouraged to exercise daily. The pt has been advised to call the office if there are any acute concerns about change in blood pressure readings at home. Orthostasis - discussed with the patient and his family - we will not decrease the medications at this time, however he has been advised that he needs to hydrate really well when he is outside and he needs to move his body/lower legs when going from sitting to standing. 10/16/2018 Appointment: Susannah Dumont WPtel: [phone] [facility] (30 min) Complex 10/16/2018 Patient Education: Patient Medication Summary Completed 10/16/2018 Patient Education: Hypertension Completed 10/16/2018 Appointment: Injection 10/09/2018 Patient Education: Patient Medication Summary Completed 10/09/2018 Appointment: Injection 09/30/2018 Patient Education: Patient Medication Summary Completed 09/30/2018 Appointment: Injection 09/23/2018 Patient Education: Patient Medication Summary Completed 09/23/2018 Appointment: Injection 09/11/2018 Patient Education: Patient Medication Summary Completed 09/11/2018 Visit Plan: Bronchitis - acute case of bronchitis identified. Pt has been given antibiotics, breathing treatments as appropriate, and pt has been instructed to call if symptoms are not improved, or if symptoms acutely worsen. 06/24/2018 Appointment: Lizzette Squires WPtel: [phone] [facility] (15 min) Moderate 06/24/2018 Patient Education: Patient Medication Summary Completed 06/24/2018 Appointment: Yojana Clark WPtel: [phone] [phone] (15 min) Moderate 05/27/2018 Visit Plan: Stroke - uncertain eitology - treated with TPAse - I have recommended referral to Dr. Mason - neurologist in [place] - pt to continue with Plavix, aspirin, [...] medications. 05/26/2018 Appointment: [phone] (15 min) Moderate 05/26/2018 Patient Education: Patient Medication Summary Completed 05/26/2018 Patient Education: Cholesterol Management Completed 05/26/2018 Care Plan: Referral Order SNOMED-CT : [id number] Pending 05/26/2018 Visit Plan: Hypertension - well [...] medications. 05/21/2017 Appointment: [phone] (15 min) Moderate 05/21/2017 Patient Education: Patient [...] to medications. 11/20/2016 Appointment: [phone] (15 min) Moderate 11/20/2016 Patient Education: Patient [...] severe obstruction. 01/24/2016 Appointment: Susannah Dumont WPtel: [facility] (15 min) Moderate 01/24/2016 Patient Education: Patient [...] a no-show 10/19/2015 Appointment: Susannah Dumont WPtel: [facility] [place] (15 min) Moderate 10/19/2015 Patient Education: Patient Medication Summary Completed 10/19/2015 Appointment: Sus[facility] Dumont [facility]el: [phone] [place] (15 min) Moderate 05/09/2015 Visit Plan: Hypertension - well controlled - continue with current medications, continue with no added salt diet. Pt has been encouraged to exercise daily. The pt has been advised to call the office if there are any acute concerns about change in blood pressure readings at home. Hematuria-HX of prostate cancer with TURP in 2011-seeing Dr Mccormack in [place] and following closely with them. Anemia-secondary to hematuria-check labs today 04/01/2015 Patient Education: Patient Medication Summary Completed 04/01/2015 Patient Education: Hypertension Completed 04/01/2015 Referral: [facility] Referral Appointment Requested Referral: [facility] 05/27 Referral info faxed. 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 Hypertension - well controlled - continue with current medications, continue with no added salt diet. Pt has been encouraged to exercise daily. The pt has been advised to call the office if there are any acute concerns about change in blood pressure readings at home. Hematuria-HX of prostate cancer with TURP in 2011-seeing Dr Mccormack in [place] and following closely with them. Anemia-secondary to hematuria-check labs today . Hypertension - well controlled - continue with current medications, continue with no added salt diet. Pt has been encouraged to exercise daily. The pt has been advised to call the office if there are any acute concerns about change in blood pressure readings at home. Orthostasis - discussed with the patient and his family - we will not decrease the medications at this time, however he has been advised that he needs to hydrate really well when he is outside and he needs to move his body/lower legs when going from sitting to standing. . Stroke - uncertain eitology - treated with TPAse - I have recommended referral to Dr. Mason - neurologist in [place] - pt to continue with Plavix, aspirin, [...]
[2018-12-22] MEDS ORDERED: ASPIRIN 81 MG CHEW (CHILDREN'S ASA) PO ONE (18:45)
--- OUTSIDE RECORDS SUMMARY | 2018-12-22 18:46 | XMS REPORT | CCD ---
Author Author Yojana Clark MD, 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 Name Role Phone PP Unavailable CCM Unavailable Summary Purpose Interface Exchange Insurance Providers Payer name Policy type / Coverage type Covered democrat ID Effective Begin Date Effective End Date WPS Medicare Part B Medicare Part B [id number] Unknown Unknown [facility] Medicare Part B [id number] Unknown Unknown Family history Father Diagnosis Age At Onset Arthritis Unknown Hypertension Unknown Brother Diagnosis Age At Onset Cancer Unknown Heart Attack Unknown Mother Diagnosis Age At Onset Skin cancer Unknown Cancer Unknown Social History Social History Element Codes Description Effective Dates Marital status Unknown Amber 07/24/2016 Number of children Unknown 3 04/01/[address]: 4526331 Former smoker 1995 04/01/[address]: 683449705 Never drinks alcohol 04/01/2015 Allergies, Adverse Reactions, [...] Active 05/26/2018 Unknown 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 [...] Z86.73 05/26/2018 Active 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 [...] (vit B-12) 1,000 mcg/mL injection solution RxNorm: 955939 Milliliter(s) Inj 11/17/2018 11/17/2018 Inactive metoprolol tartrate 50 mg tablet RxNorm: 516905 1 Tablet(s) PO BID 10/16/2018 No Stop Date Active clopidogrel 75 mg tablet RxNorm: 650382 1 Tablet(s) PO daily 10/16/2018 No Stop Date Active metoprolol tartrate 25 mg tablet RxNorm: 754729 1 Tablet(s) PO BID 10/16/2018 10/15/2018 Inactive cyanocobalamin (vit B-12) 1,000 mcg/mL injection solution RxNorm: 095635 Milliliter(s) Inj 10/09/2018 10/09/2018 Inactive cyanocobalamin (vit B-12) 1,000 mcg/mL injection solution RxNorm: 572516 1 Milliliter(s) Inj 09/30/2018 09/30/2018 Inactive cyanocobalamin (vit B-12) 1,000 mcg/mL injection solution RxNorm: 976432 1 Milliliter(s) Inj 09/23/2018 09/23/2018 Inactive cyanocobalamin (vit B-12) 1,000 mcg/mL injection solution RxNorm: 023308 Milliliter(s) Inj 09/11/2018 09/11/2018 Inactive Ativan 0.5 mg tablet RxNorm: 833786 1/2-1 Tablet(s) PO Q8 as needed 08/08/2018 10/15/2018 Inactive Xanax 0.25 mg tablet RxNorm: 325840 1 Tablet(s) PO Q6 08/07/2018 08/07/2018 Inactive doxycycline hyclate 100 mg capsule RxNorm: 9745595 1 Capsule(s) PO BID 06/24/2018 07/03/2018 Inactive prednisone 20 mg tablet RxNorm: 887324 2 Tablet(s) PO daily 06/24/2018 06/28/2018 Inactive Kenalog 40 mg/mL suspension for injection RxNorm: 3231545 Milliliter(s) Inj 06/24/2018 06/24/2018 Inactive coenzyme Q10 100 mg tablet RxNorm: 757936 1 Tablet(s) PO daily 07/24/2016 02/18/2017 Inactive Norvasc 5 mg tablet RxNorm: 077055 1 Tablet(s) PO daily No Start Date Active Vitamin D3 1,000 unit capsule RxNorm: 647154 1 Capsule(s) PO daily No Start Date Active ezetimibe 10 mg tablet RxNorm: 592989 1 Tablet(s) PO daily No Start Date Active Ranexa 500 mg tablet,extended release RxNorm: 045461 1 Tablet(s) PO BID No Start Date Active aspirin 81 mg capsule,delayed release RxNorm: 127962 1 Capsule(s) PO No Start Date Active losartan 50 mg tablet RxNorm: 425703 1 Tablet(s) PO daily No Start Date Active turmeric root extract 500 mg capsule RxNorm: 5199361 Capsule(s) PO daily No Start Date 10/19/2015 Inactive Aleve 220 mg capsule RxNorm: 8874066 1 Capsule(s) PO daily No Start Date 10/19/2015 Inactive metoprolol tartrate 25 mg tablet RxNorm: 506849 1 Tablet(s) PO BID No Start Date 10/15/2018 Inactive clopidogrel 75 mg tablet RxNorm: 899364 Tablet(s) PO daily No Start Date 01/23/2016 Inactive simvastatin 5 mg tablet RxNorm: 459980 1 Tablet(s) PO QHS No Start Date 05/20/2017 Inactive Ativan 0.5 mg tablet RxNorm: 945464 1/2-1 Tablet(s) PO Q8 as needed No Start Date 08/07/2018 Inactive Aleve PM 220 mg-25 mg tablet RxNorm: 0630345 1 Tablet(s) PO QHS No Start Date 01/23/2016 Inactive magnesium RxNorm: PO No Start Date 10/19/2015 Inactive Xanax 0.25 mg tablet RxNorm: 442693 1 Tablet(s) PO Q6 No Start Date 2018 Inactive Fish Oil 1,000 mg capsule RxNorm: 1 Capsule(s) PO daily No Start Date 10/19/2015 Inactive Vitamin D3 2,000 unit tablet RxNorm: 144549 1 Tablet(s) PO daily No Start Date 10/19/2015 Inactive benazepril 10 mg tablet RxNorm: 505686 1 Tablet(s) PO daily No Start Date 10/15/2018 Inactive pantoprazole 20 mg tablet,delayed release RxNorm: 520427 1 Tablet(s) PO daily No Start Date 01/23/2016 Inactive Osteo Bi-Flex 250 mg-200 mg tablet RxNorm: 043333 Tablet(s) PO No Start Date 11/19/2016 Inactive Medication Administered Medication Codes Instructions Start Date Status cyanocobalamin (vit B-12) 1,000 mcg/mL injection solution RxNorm: 362094 Milliliter 11/17/2018 Active cyanocobalamin (vit B-12) 1,000 mcg/mL injection solution RxNorm: 210645 Milliliter 10/09/2018 No longer Active cyanocobalamin (vit B-12) 1,000 mcg/mL injection solution RxNorm: 180282 1Milliliter 09/30/2018 No longer Active cyanocobalamin (vit B-12) 1,000 mcg/mL injection solution RxNorm: 484105 1Milliliter 09/23/2018 No longer Active cyanocobalamin (vit B-12) 1,000 mcg/mL injection solution RxNorm: 515572 Milliliter 09/11/2018 No longer Active Kenalog 40 mg/mL suspension for injection RxNorm: 3986151 Milliliter 06/24/2018 No longer Active Immunizations No [...] ICD-9: V12.54 05/26/2018 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 [...] Item Item Code Result Date Comp Metabolic Dqi605 NA 136 mEq/L 07/25/2016 Comp Metabolic Obu552 K 4.1 mEq/L 07/25/2016 Comp Metabolic Mpt052 CL 102 mEq/L 07/25/2016 Comp Metabolic Srj679 CO2 26.0 mEq/L 07/25/2016 Comp Metabolic Hxy367 ANION GAP 12 07/25/2016 Comp Metabolic Kio888 GLUCOSE 105 mg/dL 07/25/2016 Comp Metabolic Ncy999 Creat 1.1 mg/dL 07/25/2016 Comp Metabolic Hqj412 eGFR 67 ml/min/1.73m2 07/25/2016 Comp Metabolic Tow284 BUN 20 mg/dL 07/25/2016 Comp Metabolic Esp901 B/C Ratio 17.9 Ratio 07/25/2016 Comp Metabolic Gwv180 CALCIUM 8.8 mg/dL 07/25/2016 Comp Metabolic Nhz761 ALK PHOS 71 U/L 07/25/2016 Comp Metabolic Yvy775 AST(SGOT) 14 U/L 07/25/2016 Comp Metabolic Wfx656 ALT(SGPT) 13 U/L 07/25/2016 Comp Metabolic Uux833 BILI T 0.6 mg/dL 07/25/2016 Comp Metabolic Jif643 ALBUMIN 3.9 g/dL 07/25/2016 Comp Metabolic Vhn267 TPRO 6.4 g/dL 07/25/2016 Comp Metabolic Pvn111 GLOB 2.5 g/dL 07/25/2016 Comp Metabolic Kkn423 A/G Ratio 1.5 Ratio 07/25/2016 Comp Metabolic Xqi666 Osmo 275 mOsmo 07/25/2016 Lipid Ord30 CHOL [...] 29.8 pg 07/25/2016 Cbc With Differential Ord2 [place]% 14.4 % 07/25/2016 Cbc With Differential Ord2 [...] 1.14 K/ul 07/25/2016 Cbc With Differential Ord2 [place] ABS# 0.8 K/ul 07/25/2016 Cbc With Differential [...] Ord2 RDW 14.9 % 04/01/2015 Comp Metabolic Slf342 NA 124 mEq/L 04/01/2015 Comp Metabolic Evk946 K 4.2 mEq/L 04/01/2015 Comp Metabolic Wqa363 CL 93 mEq/L 04/01/2015 Comp Metabolic Meq998 CO2 24.0 mEq/L 04/01/2015 Comp Metabolic Vvv690 ANION GAP 11 04/01/2015 Comp Metabolic Mys507 GLUCOSE 103 mg/dL 04/01/2015 Comp Metabolic Mwb313 Creat 1.0 mg/dL 04/01/2015 Comp Metabolic Llv160 eGFR 75 ml/min/1.73m2 04/01/2015 Comp Metabolic Bxe405 BUN 13 mg/dL 04/01/2015 Comp Metabolic Rea236 B/C Ratio 12.7 Ratio 04/01/2015 Comp Metabolic Gdo455 CALCIUM 9.1 mg/dL 04/01/2015 Comp Metabolic Izj861 ALK PHOS 65 U/L 04/01/2015 Comp Metabolic Mwh306 AST(SGOT) 15 U/L 04/01/2015 Comp Metabolic Oww528 ALT(SGPT) 15 U/L 04/01/2015 Comp Metabolic Sxo836 BILI T 1.1 mg/dL 04/01/2015 Comp Metabolic Ktq748 ALBUMIN 4.0 g/dL 04/01/2015 Comp Metabolic Iuj546 TPRO 6.2 g/dL 04/01/2015 Comp Metabolic Hmk759 GLOB 2.2 g/dL 04/01/2015 Comp Metabolic Jju262 A/G Ratio 1.8 Ratio 04/01/2015 Comp Metabolic Rqx739 Osmo 250 mOsmo 04/01/2015 Review of Systems [...] Procedure Codes Date THER/PROPH/DIAG INJ SC/IM CPT-4: 41342 11/17/2018 VITAMIN B12 INJECTION CPT- 4: J3420 11/17/2018 VITAMIN B12 INJECTION CPT- 4: J3420 10/09/2018 THER/PROPH/DIAG INJ SC/IM CPT-4: 17481 10/09/2018 THER/PROPH/DIAG INJ SC/IM CPT-4: 59511 09/30/2018 VITAMIN B12 INJECTION CPT- 4: J3420 09/30/2018 THER/PROPH/DIAG INJ SC/IM CPT-4: 44469 09/23/2018 VITAMIN B12 INJECTION CPT- 4: J3420 09/23/2018 THER/PROPH/DIAG INJ SC/IM CPT-4: 77385 09/11/2018 VITAMIN B12 INJECTION CPT- 4: J3420 09/11/2018 THER/PROPH/DIAG INJ SC/IM CPT-4: 06690 06/24/2018 TRIAMCINOLONE ACET INJ NOS CPT-4: J3301 06/24/2018 Vital Signs Date Vital 10/16/2018 Blood Pressure 1: 138/74 Code: 8480-6 BMI: 26.5 Code: 23699-3 Heart Rate 1: 60 bpm Height: 5'10" SpO2: 97% Weight: 185 lbs 06/24/2018 Blood Pressure 1: 150/88 Code: 8480-6 BMI: 27.0 Code: 75097-5 Heart Rate 1: 85 bpm Height: 5'10" SpO2: 98% Temperature: 36.8 (C) / 98.2 (F) Weight: 188 lbs 05/26/2018 Blood Pressure 1: 128/68 Code: 8480-6 BMI: 27.0 Code: 54881-9 Heart Rate 1: 62 bpm Height: 5'10" SpO2: 99% Weight: 188 lbs 05/21/2017 Blood Pressure 1: 142/84 Code: 8480-6 BMI: 27.1 Code: 44037-2 Heart Rate 1: 75 bpm Height: 5'10" SpO2: 97% Weight: 189 lbs 11/20/2016 Blood Pressure 1: 130/88 Code: 8480-6 BMI: 27.7 Code: 46039-0 Heart Rate 1: 80 bpm Height: 5'10" SpO2: 95% Weight: 193 lbs 07/24/2016 Blood Pressure 1: 132/78 Code: 8480-6 BMI: 27.7 Code: 86636-9 Heart Rate 1: 78 bpm Height: 5'10" SpO2: 98% Weight: 193 lbs 01/24/2016 Blood Pressure 1: 140/76 Code: 8480-6 BMI: 27.7 Code: 21458-5 Heart Rate 1: 83 bpm Height: 5'10" SpO2: 95% Weight: 193 lbs 10/20/2015 Blood Pressure 1: 106/66 Code: 8480-6 BMI: 27.3 Code: 20542-8 Heart Rate 1: 75 bpm Height: 5'10" SpO2: 97% Weight: 190 lbs 8 oz 10/19/2015 Height: 5'10" 04/01/2015 Blood Pressure 1: 118/62 Code: 8480-6 BMI: 27.0 Code: 15949-3 Heart Rate 1: 77 bpm Height: 5'10" [...] data Encounters Encounter Performer Location Codes Date ([id number]) [id number] EST. PATIENT, LEVEL IV Diagnosis: Essential (primary) hypertension[ICD10: I10] Diagnosis: Orthostatic hypotension[ICD10: I95.1] Susannah Dumont MD, [facility] CPT-4: 55619 10/16/2018 [id number] EST. PATIENT, LEVEL IV Diagnosis: Acute bronchitis due to other specified organisms[ICD10: J20.8] Lizzette Dumont MD, [facility] CPT-4: 45412 06/24/2018 ([id number]) 61450 EST. 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 CPT-4: 29977 05/26/2018 ([id number]) 29933 EST. PATIENT, LEVEL IV Diagnosis: Essential (primary) hypertension[ICD10: I10] Diagnosis: Mixed hyperlipidemia[ICD10: E78.2] Susannah Dumont MD, [facility] CPT- 4: 11667 05/21/2017 [id number]) 45247 EST. PATIENT, LEVEL IV Diagnosis: Essential (primary) hypertension[ICD10: I10] Diagnosis: Mixed hyperlipidemia[ICD10: E78.2] Susannah Dumont MD, [facility] CPT- 4: 69216 11/20/2016 ([id number]) 14006 EST. 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 CPT-4: 10573 07/24/2016 ([id number]) Miscellaneous no charge Diagnosis: Impacted cerumen, right ear[ICD10: H61.21] [facility] CPT-4: 10842 02/01/2016 ([id number]) 05347 EST. PATIENT, LEVEL III Diagnosis: Essential (primary) hypertension[ICD10: I10] Susannah Dumont MD, [facility] CPT-4: 45786 01/24/2016 ([id number]) 59337 EST. PATIENT, LEVEL III Diagnosis: Essential (primary) hypertension[ICD10: I10] Susannah Dumont MD, [facility] CPT-4: 91003 10/20/2015 ([id number]) OFFICE VISIT, NEW - LEVEL 3 Diagnosis: Essential (primary) hypertension[ICD10: I10] Diagnosis: Gross hematuria[ICD10: R31.0] Diagnosis: Anemia, unspecified[ICD10: D64.9] Yojana Dumont MD, [facility] CPT- 4: 08604 04/01/2015 Plan of Care Planned Activity Notes Codes Status Date Patient Education: Patient Medication Summary Completed 11/17/2018 [...] to standing. 10/16/2018 Appointment: Susannah Dumont WPtel: [address] [place], [place] [phone] (30 min) Complex 10/16/2018 Patient Education: Patient [...] acutely worsen. 06/24/2018 Appointment: Lizzette Squires WPtel: [facility]6 [facility] (15 min) Moderate 06/24/2018 Patient Education: Patient Medication Summary Completed 06/24/2018 Appointment: Yojana Clark WPtel: [phone] (15 min) Moderate 05/27/2018 Visit Plan: Stroke - uncertain eitology - treated with TPAse - I have recommended referral to Dr. Mason - neurologist in [place] - pt to continue with Plavix, aspirin, [...] to medications. 05/26/2018 Appointment: Susannah Dumont WPtel: [facility] [place] (15 min) Moderate 05/26/2018 Patient Education: Patient Medication Summary Completed 05/26/2018 Patient Education: Cholesterol Management Completed 05/26/2018 Care Plan: Referral Order SNOMED-CT : [id number] Pending 05/26/2018 Visit Plan: Hypertension - well [...] medications. 05/21/2017 [phone] [facility] [place] (15 min) Moderate 05/21/2017 Patient Education: Patient [...] to medications. 11/20/2016 [phone] [facility] [place] (15 min) Moderate 11/20/2016 Patient Education: Patient [...] obstruction. 01/24/2016 [phone] [phone] (15 min) Moderate 01/24/2016 Patient Education: Patient [...] a no-show 10/19/2015 [phone] [facility] (15 min) Moderate 10/19/2015 Patient Education: Patient Medication Summary Completed 10/19/2015 [phone] [facility] (15 min) Moderate 05/09/2015 Visit Plan: Hypertension - well controlled - continue with current medications, continue with no added salt diet. Pt has been encouraged to exercise daily. The pt has been advised to call the office if there are any acute concerns about change in blood pressure readings at home. Hematuria-HX of prostate cancer with TURP in 2011-seeing Dr Mccormack in [place] and following closely with them. Anemia-secondary to hematuria-check labs today 04/01/2015 Patient Education: Patient Medication Summary Completed 04/01/2015 Patient Education: Hypertension Completed 04/01/2015 Referral: [facility] Referral Appointment Requested Referral: [facility] 05/27 Referral info faxed. They will [...] PROBIOTIC TWICE DAILY-SOME OF THE NAMES ARE [employer], [employer], [employer] CHECK LABS TODAY . Hypertension - well controlled - continue with current medications, continue with no added salt diet. Pt has been encouraged to exercise daily. The pt has been advised to call the office if there are any acute concerns about change in blood pressure readings at home. Hematuria-HX of prostate cancer with TURP in 2011-seeing Dr Mccormack in [place] and following closely with them. Anemia-secondary to [...] referral to Dr. Mason - neurologist in [place] - pt to continue with Plavix, aspirin, [...]
--- OUTSIDE RECORDS SUMMARY | 2018-12-22 18:49 | XMS REPORT | CCD ---
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 Name Role Phone PP Unavailable CCM Unavailable Summary Purpose Interface Exchange Insurance Providers Payer name Policy type / Coverage type Covered republican ID Effective Begin Date Effective End Date WPS Medicare Part B Medicare Part B [id number] Unknown Unknown [facility] Medicare Part B [id number] Unknown Unknown Family history Father Diagnosis Age At Onset Arthritis Unknown Hypertension Unknown Brother Diagnosis Age At Onset Cancer Unknown Heart Attack Unknown Mother Diagnosis Age At Onset Skin cancer Unknown Cancer Unknown Social History Social History Element Codes Description Effective Dates Marital status Unknown Amber 07/24/2016 Number of children Unknown 3 04/01/[address]: 6587997 Former smoker 1995 04/01/[address]: 478871262 Never drinks alcohol 04/01/2015 Allergies, Adverse Reactions, Alerts Substance Reaction Codes Entered Date Inactivated Date Status * NO KNOWN DRUG ALLERGIES Unknown 04/01/2015 No Inactive Date Active Past Medical History Illness Codes Condition Status Onset Date Resolved Date Essential (primary) hypertension ICD-9: 401.9 ICD-10: I10 Active 03/31/2015 Unknown Orthostatic hypotension ICD-9: 458.0 ICD-10: I95.1 Active 10/16/2018 Unknown Vitamin B12 deficiency anemia, unspecified ICD-9: 281.1 ICD-10: D51.9 Active 09/11/2018 Unknown Anemia, unspecified ICD- 9: 285.9 ICD-10: [...] Active 05/26/2018 Unknown 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 Active 07/24/2016 Unknown Impacted cerumen, right ear ICD-9: 380.4 ICD-10: H61.21 Active 01/31/2016 Unknown BPH Unknown Active 04/01/2015 Unknown carotid stenosis Unknown Active 04/01/2015 Unknown Hyperlipidemia Unknown Active 04/01/2015 Unknown Hypertension Unknown Active 04/01/2015 Unknown Gross hematuria ICD-9: 599.71 ICD-10: R31.0 Active 03/31/2015 Unknown Problems Condition Codes Effective Dates Condition Status Essential (primary) hypertension ICD-9: 401.9 ICD-10: I10 03/31/2015 Active Orthostatic hypotension ICD-9: 458.0 ICD-10: I95.1 10/16/2018 Active Vitamin B12 deficiency anemia, unspecified ICD-9: 281.1 ICD-10: D51.9 09/11/2018 Active Anemia, unspecified ICD- 9: 285.9 ICD-10: [...] Z86.73 05/26/2018 Active 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 07/24/2016 Active Impacted cerumen, right ear ICD-9: 380.4 ICD-10: H61.21 01/31/2016 Active BPH Unknown 04/01/2015 Active carotid stenosis Unknown 04/01/2015 Active Hyperlipidemia Unknown 04/01/2015 Active Hypertension Unknown 04/01/2015 Active Gross hematuria ICD-9: 599.71 ICD-10: R31.0 03/31/2015 Active Medications Medication Codes Instructions Start Date Stop Date Status Fill Instructions metoprolol tartrate 50 mg tablet RxNorm: 618683 1 Tablet(s) PO BID 10/16/2018 No Stop Date Active clopidogrel 75 mg tablet RxNorm: 870139 1 Tablet(s) PO daily 10/16/2018 No Stop Date Active metoprolol tartrate 25 mg tablet RxNorm: 667796 1 Tablet(s) PO BID 10/16/2018 10/15/2018 Inactive cyanocobalamin (vit B-12) 1,000 mcg/mL injection solution RxNorm: 469805 Milliliter(s) Inj 10/09/2018 10/09/2018 Inactive cyanocobalamin (vit B-12) 1,000 mcg/mL injection solution RxNorm: 740877 1 Milliliter(s) Inj 09/30/2018 09/30/2018 Inactive cyanocobalamin (vit B-12) 1,000 mcg/mL injection solution RxNorm: 812343 1 Milliliter(s) Inj 09/23/2018 09/23/2018 Inactive cyanocobalamin (vit B-12) 1,000 mcg/mL injection solution RxNorm: 361848 Milliliter(s) Inj 09/11/2018 09/11/2018 Inactive Ativan 0.5 mg tablet RxNorm: 206164 1/2-1 Tablet(s) PO Q8 as needed 08/08/2018 10/15/2018 Inactive Xanax 0.25 mg tablet RxNorm: 558128 1 Tablet(s) PO Q6 08/07/2018 08/07/2018 Inactive doxycycline hyclate 100 mg capsule RxNorm: 0691193 1 Capsule(s) PO BID 06/24/2018 07/03/2018 Inactive prednisone 20 mg tablet RxNorm: 407680 2 Tablet(s) PO daily 06/24/2018 06/28/2018 Inactive Kenalog 40 mg/mL suspension for injection RxNorm: 4106079 Milliliter(s) Inj 06/24/2018 06/24/2018 Inactive coenzyme Q10 100 mg tablet RxNorm: 912180 1 Tablet(s) PO daily 07/24/2016 02/18/2017 Inactive Norvasc 5 mg tablet RxNorm: 279813 1 Tablet(s) PO daily No Start Date Active Vitamin D3 1,000 unit capsule RxNorm: 666849 1 Capsule(s) PO daily No Start Date Active ezetimibe 10 mg tablet RxNorm: 145340 1 Tablet(s) PO daily No Start Date Active Ranexa 500 mg tablet,extended release RxNorm: 976797 1 Tablet(s) PO BID No Start Date Active aspirin 81 mg capsule,delayed release RxNorm: 074414 1 Capsule(s) PO No Start Date Active losartan 50 mg tablet RxNorm: 471416 1 Tablet(s) PO daily No Start Date Active turmeric root extract 500 mg capsule RxNorm: 3227194 Capsule(s) PO daily No Start Date 10/19/2015 Inactive Aleve 220 mg capsule RxNorm: 1486917 1 Capsule(s) PO daily No Start Date 10/19/2015 Inactive metoprolol tartrate 25 mg tablet RxNorm: 068263 1 Tablet(s) PO BID No Start Date 10/15/2018 Inactive clopidogrel 75 mg tablet RxNorm: 770578 Tablet(s) PO daily No Start Date 01/23/2016 Inactive simvastatin 5 mg tablet RxNorm: 513113 1 Tablet(s) PO QHS No Start Date 05/20/2017 Inactive Ativan 0.5 mg tablet RxNorm: 924595 1/2-1 Tablet(s) PO Q8 as needed No Start Date 08/07/2018 Inactive Aleve PM 220 mg-25 mg tablet RxNorm: 7329691 1 Tablet(s) PO QHS No Start Date 01/23/2016 Inactive magnesium RxNorm: PO No Start Date 10/19/2015 Inactive Xanax 0.25 mg tablet RxNorm: 981342 1 Tablet(s) PO Q6 No Start Date 2018 Inactive Fish Oil 1,000 mg capsule RxNorm: 1 Capsule(s) PO daily No Start Date 10/19/2015 Inactive Vitamin D3 2,000 unit tablet RxNorm: 605975 1 Tablet(s) PO daily No Start Date 10/19/2015 Inactive benazepril 10 mg tablet RxNorm: 845439 1 Tablet(s) PO daily No Start Date 10/15/2018 Inactive pantoprazole 20 mg tablet,delayed release RxNorm: 342809 1 Tablet(s) PO daily No Start Date 01/23/2016 Inactive Osteo Bi-Flex 250 mg-200 mg tablet RxNorm: 985268 Tablet(s) PO No Start Date 11/19/2016 Inactive Medication Administered Medication Codes Instructions Start Date Status cyanocobalamin (vit B-12) 1,000 mcg/mL injection solution RxNorm: 710560 Milliliter 10/09/2018 No longer Active cyanocobalamin (vit B-12) 1,000 mcg/mL injection solution RxNorm: 930771 1Milliliter 09/30/2018 No longer Active cyanocobalamin (vit B-12) 1,000 mcg/mL injection solution RxNorm: 800553 1Milliliter 09/23/2018 No longer Active cyanocobalamin (vit B-12) 1,000 mcg/mL injection solution RxNorm: 975614 Milliliter 09/11/2018 No longer Active Kenalog 40 mg/mL suspension for injection RxNorm: 2241458 Milliliter 06/24/2018 No longer Active Immunizations No Immunization data Assessments Condition Codes Effective Dates Essential (primary) hypertension ICD-10: I10 ICD-9: 401.9 10/16/2018 Orthostatic hypotension ICD-10: I95.1 ICD-9: 458.0 10/16/2018 Vitamin B12 deficiency anemia, unspecified ICD-10: D51.9 ICD-9: 281.1 10/09/2018 Acute bronchitis due to other specified organisms [...] ICD-9: V12.54 05/26/2018 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-10: I25.10 [...] Item Item Code Result Date Comp Metabolic Nbm542 NA 136 mEq/L 07/25/2016 Comp Metabolic Lah368 K 4.1 mEq/L 07/25/2016 Comp Metabolic Ywf862 CL 102 mEq/L 07/25/2016 Comp Metabolic Kbb664 CO2 26.0 mEq/L 07/25/2016 Comp Metabolic Ajy123 ANION GAP 12 07/25/2016 Comp Metabolic Tql485 GLUCOSE 105 mg/dL 07/25/2016 Comp Metabolic Eni593 Creat 1.1 mg/dL 07/25/2016 Comp Metabolic Ott260 eGFR 67 ml/min/1.73m2 07/25/2016 Comp Metabolic Yft919 BUN 20 mg/dL 07/25/2016 Comp Metabolic Wem269 B/C Ratio 17.9 Ratio 07/25/2016 Comp Metabolic Rgo890 CALCIUM 8.8 mg/dL 07/25/2016 Comp Metabolic Cwn166 ALK PHOS 71 U/L 07/25/2016 Comp Metabolic Kya196 AST(SGOT) 14 U/L 07/25/2016 Comp Metabolic Edg160 ALT(SGPT) 13 U/L 07/25/2016 Comp Metabolic Sot317 BILI T 0.6 mg/dL 07/25/2016 Comp Metabolic Uqx005 ALBUMIN 3.9 g/dL 07/25/2016 Comp Metabolic Mhp406 TPRO 6.4 g/dL 07/25/2016 Comp Metabolic Lfr208 GLOB 2.5 g/dL 07/25/2016 Comp Metabolic Mef375 A/G Ratio 1.5 Ratio 07/25/2016 Comp Metabolic Jng260 Osmo 275 mOsmo 07/25/2016 Lipid Ord30 CHOL [...] 29.8 pg 07/25/2016 Cbc With Differential Ord2 [place]% 14.4 % 07/25/2016 Cbc With Differential Ord2 [...] 1.14 K/ul 07/25/2016 Cbc With Differential Ord2 [place] ABS# 0.8 K/ul 07/25/2016 Cbc With Differential [...] Ord2 RDW 14.9 % 04/01/2015 Comp Metabolic Gpa761 NA 124 mEq/L 04/01/2015 Comp Metabolic Bmu937 K 4.2 mEq/L 04/01/2015 Comp Metabolic Kyy156 CL 93 mEq/L 04/01/2015 Comp Metabolic Bbb553 CO2 24.0 mEq/L 04/01/2015 Comp Metabolic Eda287 ANION GAP 11 04/01/2015 Comp Metabolic Grw517 GLUCOSE 103 mg/dL 04/01/2015 Comp Metabolic Uju558 Creat 1.0 mg/dL 04/01/2015 Comp Metabolic Twy575 eGFR 75 ml/min/1.73m2 04/01/2015 Comp Metabolic Iae707 BUN 13 mg/dL 04/01/2015 Comp Metabolic Lat653 B/C Ratio 12.7 Ratio 04/01/2015 Comp Metabolic Epe779 CALCIUM 9.1 mg/dL 04/01/2015 Comp Metabolic Olr171 ALK PHOS 65 U/L 04/01/2015 Comp Metabolic Gdk247 AST(SGOT) 15 U/L 04/01/2015 Comp Metabolic Efe341 ALT(SGPT) 15 U/L 04/01/2015 Comp Metabolic Gjg327 BILI T 1.1 mg/dL 04/01/2015 Comp Metabolic Uwt729 ALBUMIN 4.0 g/dL 04/01/2015 Comp Metabolic Swt534 TPRO 6.2 g/dL 04/01/2015 Comp Metabolic Xxp506 GLOB 2.2 g/dL 04/01/2015 Comp Metabolic Evn249 A/G Ratio 1.8 Ratio 04/01/2015 Comp Metabolic Vmg657 Osmo 250 mOsmo 04/01/2015 Review of Systems [...] clear 04/01/2015 None Procedures Procedure Codes Date VITAMIN B12 INJECTION CPT- 4: J3420 10/09/2018 THER/PROPH/DIAG INJ SC/IM CPT-4: 73129 10/09/2018 THER/PROPH/DIAG INJ SC/IM CPT-4: 82777 09/30/2018 VITAMIN B12 INJECTION CPT- 4: J3420 09/30/2018 THER/PROPH/DIAG INJ SC/IM CPT-4: 49349 09/23/2018 VITAMIN B12 INJECTION CPT- 4: J3420 09/23/2018 THER/PROPH/DIAG INJ SC/IM CPT-4: 07796 09/11/2018 VITAMIN B12 INJECTION CPT- 4: J3420 09/11/2018 THER/PROPH/DIAG INJ SC/IM CPT-4: 43615 06/24/2018 TRIAMCINOLONE ACET INJ NOS CPT-4: J3301 06/24/2018 Vital Signs Date Vital 10/16/2018 Blood Pressure 1: 138/74 Code: 8480-6 BMI: 26.5 Code: 85644-0 Heart Rate 1: 60 bpm Height: 5'10" SpO2: 97% Weight: 185 lbs 06/24/2018 Blood Pressure 1: 150/88 Code: 8480-6 BMI: 27.0 Code: 39883-6 Heart Rate 1: 85 bpm Height: 5'10" SpO2: 98% Temperature: 36.8 (C) / 98.2 (F) Weight: 188 lbs 05/26/2018 Blood Pressure 1: 128/68 Code: 8480-6 BMI: 27.0 Code: 41309-3 Heart Rate 1: 62 bpm Height: 5'10" SpO2: 99% Weight: 188 lbs 05/21/2017 Blood Pressure 1: 142/84 Code: 8480-6 BMI: 27.1 Code: 42467-5 Heart Rate 1: 75 bpm Height: 5'10" SpO2: 97% Weight: 189 lbs 11/20/2016 Blood Pressure 1: 130/88 Code: 8480-6 BMI: 27.7 Code: 29915-8 Heart Rate 1: 80 bpm Height: 5'10" SpO2: 95% Weight: 193 lbs 07/24/2016 Blood Pressure 1: 132/78 Code: 8480-6 BMI: 27.7 Code: 00146-1 Heart Rate 1: 78 bpm Height: 5'10" SpO2: 98% Weight: 193 lbs 01/24/2016 Blood Pressure 1: 140/76 Code: 8480-6 BMI: 27.7 Code: 37160-4 Heart Rate 1: 83 bpm Height: 5'10" SpO2: 95% Weight: 193 lbs 10/20/2015 Blood Pressure 1: 106/66 Code: 8480-6 BMI: 27.3 Code: 09258-7 Heart Rate 1: 75 bpm Height: 5'10" SpO2: 97% Weight: 190 lbs 8 oz 10/19/2015 Height: 5'10" 04/01/2015 Blood Pressure 1: 118/62 Code: 8480-6 BMI: 27.0 Code: 48115-8 Heart Rate 1: 77 bpm Height: 5'10" [...] data Encounters Encounter Performer Location Codes Date ([id number]) 35154 EST. PATIENT, LEVEL IV Diagnosis: Essential (primary) hypertension[ICD10: I10] Diagnosis: Orthostatic hypotension[ICD10: I95.1] Susannah Dumont MD, [facility] CPT-4: 11642 10/16/2018 [id number] EST. PATIENT, LEVEL IV Diagnosis: Acute bronchitis due to other specified organisms[ICD10: J20.8] Lizzette Dumont MD, [facility] CPT-4: 18949 06/24/2018 ([id number]) 12992 EST. PATIENT, LEVEL IV Diagnosis: Essential (primary) hypertension[ICD10: I10] Diagnosis: Mixed hyperlipidemia[ICD10: E78.2] Diagnosis: Personal history of transient ischemic attack (TIA), and cerebral infarction without residual deficits[ICD10: Z86.73] Diagnosis: 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[ICD10: I63.59] Susannah Dumont MD, [facility] CPT-4: 94461 05/26/2018 [id number]) 14450 EST. PATIENT, LEVEL IV Diagnosis: Essential (primary) hypertension[ICD10: I10] Diagnosis: Mixed hyperlipidemia[ICD10: E78.2] Susannah Dumont MD, [facility] CPT- 4: 69958 05/21/2017 [id number]) 15947 EST. PATIENT, LEVEL IV Diagnosis: Essential (primary) hypertension[ICD10: I10] Diagnosis: Mixed hyperlipidemia[ICD10: E78.2] Susannah Dumont MD, [facility] CPT- 4: 00256 11/20/2016 [id number]) 27043 EST. PATIENT, LEVEL IV Diagnosis: Essential (primary) hypertension[ICD10: I10] Diagnosis: Mixed hyperlipidemia[ICD10: E78.2] Diagnosis: Atherosclerotic heart disease of [place] coronary artery without angina pectoris[ICD10: I25.10] Susannah Dumont MD, [facility] CPT-4: 94815 07/24/2016 ([id number]) Miscellaneous no charge Diagnosis: Impacted cerumen, right ear[ICD10: H61.21] Susannah Dumont MD, [facility] CPT-4: 09759 02/01/2016 ([id number]) 64965 EST. PATIENT, LEVEL III Diagnosis: Essential (primary) hypertension[ICD10: I10] Susannah Dumont MD, [facility] CPT-4: 33769 01/24/2016 ([id number]) 42657 EST. PATIENT, LEVEL III Diagnosis: Essential (primary) hypertension[ICD10: I10] Susannah Dumont MD, [facility] CPT-4: 83174 10/20/2015 ([id number]) OFFICE VISIT, NEW - LEVEL 3 Diagnosis: Essential (primary) hypertension[ICD10: I10] Diagnosis: Gross hematuria[ICD10: R31.0] Diagnosis: Anemia, unspecified[ICD10: D64.9] Yojana Dumont MD, [facility] CPT- 4: 30478 04/01/2015 Plan of Care Planned Activity Notes Codes Status Date Visit Plan: Hypertension - well controlled - [...] when going from sitting to standing. 10/16/2018 Patient Education: Patient Medication Summary Completed [...] worsen. 06/24/2018 Appointment: Lizzette Squires WPtel: [phone] [id number] [place] (15 min) Moderate 06/24/2018 Patient Education: Patient Medication Summary Completed 06/24/2018 Appointment: Yojana Clark WPtel: [phone] [phone] (15 min) Moderate 05/27/2018 Visit Plan: Stroke - uncertain eitology - treated with TPAse - I have recommended referral to [facility] [place] [facility] - pt to continue with Plavix, aspirin, [...] medications. 05/26/2018 [phone] [facility] ([facility] min) Moderate 05/26/2018 Patient Education: Patient Medication Summary Completed 05/26/2018 Patient Education: Cholesterol Management Completed 05/26/2018 Care Plan: Referral Order SNOMED-CT : [id number] Pending 05/26/2018 Visit Plan: Hypertension - well [...] medications. 05/21/2017 [phone] [id number] (15 min) Moderate 05/21/2017 Patient Education: Patient [...] medications. 11/20/2016 [phone] [facility] (15 min) Moderate 11/20/2016 Patient Education: [...] obstruction. 01/24/2016 Appointment: Susannah Dumont WPtel: [phone] [facility] (15 min) Moderate 01/24/2016 Patient Education: [...] no-show 10/19/2015 Appointment: Susannah Dumont WPtel: [phone] [facility] (15 min) Moderate 10/19/2015 Patient Education: Patient Medication Summary Completed 10/19/2015 Appointment: Susannah Dumont WPtel: [phone] [facility] (15 min) Moderate 05/09/2015 Visit Plan: Hypertension - well controlled - continue with current medications, continue with no added salt diet. Pt has been encouraged to exercise daily. The pt has been advised to call the office if there are any acute concerns about change in blood pressure readings at home. Hematuria-HX of prostate cancer with TURP in 2011-seeing Dr Mccormack in [place] and following closely with them. Anemia-secondary to hematuria-check labs today 04/01/2015 Patient Education: Patient Medication Summary Completed 04/01/2015 Patient Education: Hypertension Completed 04/01/2015 Referral: [facility] Referral Appointment Requested Referral: [facility] 05/27 Referral info faxed. They will [...] PROBIOTIC TWICE DAILY-SOME OF THE NAMES ARE [employer], [employer] CHECK LABS TODAY . Hypertension - well controlled - continue with current medications, continue with no added salt diet. Pt has been encouraged to exercise daily. The pt has been advised to call the office if there are any acute concerns about change in blood pressure readings at home. Hematuria-HX of prostate cancer with TURP in 2011-seeing Dr Mccormack in [place] and following closely with them. Anemia-secondary to [...] referral to Dr. Mason - neurologist in [place] - pt to continue with Plavix, aspirin, [...]
--- OUTSIDE RECORDS SUMMARY | 2018-12-22 18:50 | XMS REPORT | CCD ---
Author Author Yojana Clark MD, [facility] Address [address] [place] [address] Phone Care Team Providers Care Resin Remover Name Role Phone PP Unavailable CCM Unavailable Summary Purpose Interface Exchange Insurance Providers Payer name Policy type / Coverage type Covered constitution party ID Effective Begin Date Effective End Date WPS Medicare Part B Medicare Part B [id number] Unknown Unknown [facility] Medicare Part B [id number] Unknown Unknown Family history Father Diagnosis Age At Onset Arthritis Unknown Hypertension Unknown Brother Diagnosis Age At Onset Cancer Unknown Heart Attack Unknown Mother Diagnosis Age At Onset Skin cancer Unknown Cancer Unknown Social History Social History Element Codes Description Effective Dates Marital status Unknown Amber 07/24/2016 Number of children Unknown 3 04/01/[address]: 6497731 Former smoker 1995 04/01/[address]: 364633278 Never drinks alcohol 04/01/2015 Allergies, Adverse Reactions, Alerts Allergies, Adverse Reactions, Alerts data not found Past Medical History Illness Codes Condition Status Onset Date Resolved Date Essential (primary) hypertension ICD-9: 401.1 ICD-10: I10 Active 01/23/2016 Unknown Mixed hyperlipidemia ICD- 9: 272.2 ICD-10: E78.2 Active 07/24/2016 Unknown 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 Active 07/24/2016 Unknown Impacted cerumen, right ear ICD-9: 380.4 ICD-10: H61.21 Active 01/31/2016 Unknown BPH Unknown Active 04/01/2015 Unknown carotid stenosis Unknown Active 04/01/2015 Unknown Hyperlipidemia Unknown Active 04/01/2015 Unknown Hypertension Unknown Active 04/01/2015 Unknown Anemia, unspecified ICD- 9: 285.9 ICD-10: D64.9 Active 03/31/2015 Unknown Essential (primary) hypertension ICD-9: 401.9 ICD-10: I10 Active 03/31/2015 Unknown Gross hematuria ICD-9: 599.71 ICD-10: R31.0 Active 03/31/2015 Unknown Problems Condition Codes Effective Dates Condition Status Essential (primary) hypertension ICD-9: 401.1 ICD-10: I10 01/23/2016 Active Mixed hyperlipidemia ICD- 9: 272.2 ICD-10: E78.2 07/24/2016 Active 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 07/24/2016 Active Impacted cerumen, right ear ICD-9: 380.4 ICD-10: H61.21 01/31/2016 Active BPH Unknown 04/01/2015 Active carotid stenosis Unknown 04/01/2015 Active Hyperlipidemia Unknown 04/01/2015 Active Hypertension Unknown 04/01/2015 Active Anemia, unspecified ICD- 9: 285.9 ICD-10: D64.9 03/31/2015 Active Essential (primary) hypertension ICD-9: 401.9 ICD-10: I10 03/31/2015 Active Gross hematuria ICD-9: 599.71 ICD-10: R31.0 03/31/2015 Active Medications Medication Codes Instructions Start Date Stop Date Status Fill Instructions coenzyme Q10 100 mg tablet RxNorm: 592904 1 Tablet(s) PO daily 07/24/2016 02/18/2017 Active Norvasc 5 mg tablet RxNorm: 792575 1 Tablet(s) PO daily No Start Date Active metoprolol tartrate 25 mg tablet RxNorm: 852524 1 Tablet(s) PO BID No Start Date Active simvastatin 5 mg tablet RxNorm: 628840 1 Tablet(s) PO QHS No Start Date Active Ranexa 500 mg tablet,extended release RxNorm: 953656 1 Tablet(s) PO BID No Start Date Active benazepril 10 mg tablet RxNorm: 920904 1 Tablet(s) PO daily No Start Date Active aspirin 81 mg capsule,delayed release RxNorm: 257528 1 Capsule(s) PO No Start Date Active turmeric root extract 500 mg capsule RxNorm: 7994804 Capsule(s) PO daily No Start Date 10/19/2015 Inactive Aleve 220 mg capsule RxNorm: 1268891 1 Capsule(s) PO daily No Start Date 10/19/2015 Inactive clopidogrel 75 mg tablet RxNorm: 009339 Tablet(s) PO daily No Start Date 01/23/2016 Inactive Aleve PM 220 mg-25 mg tablet RxNorm: 3268543 1 Tablet(s) PO QHS No Start Date 01/23/2016 Inactive magnesium RxNorm: PO No Start Date 10/19/2015 Inactive Fish Oil 1,000 mg capsule RxNorm: 1 Capsule(s) PO daily No Start Date 10/19/2015 Inactive Vitamin D3 2,000 unit tablet RxNorm: 001419 1 Tablet(s) PO daily No Start Date 10/19/2015 Inactive pantoprazole 20 mg tablet,delayed release RxNorm: 338160 1 Tablet(s) PO daily No Start Date 01/23/2016 Inactive Osteo Bi-Flex 250 mg-200 mg tablet RxNorm: 349862 Tablet(s) PO No Start Date 11/19/2016 Inactive Medication Administered No Medication Administered data Immunizations No Immunization data Assessments Condition Codes Effective Dates Essential (primary) hypertension ICD-10: I10 ICD-9: 401.1 11/20/2016 Mixed hyperlipidemia ICD-10: E78.2 ICD-9: 272.2 11/20/2016 Atherosclerotic heart disease of [place] coronary artery without angina pectoris ICD-10: I25.10 ICD-9: 414.00 07/24/2016 Impacted cerumen, right ear ICD-10: H61.21 ICD-9: 380.4 02/01/2016 Anemia, unspecified ICD-10: D64.9 ICD-9: 285.9 04/01/2015 Gross hematuria ICD-10: R31.0 ICD-9: 599.71 04/01/2015 Essential (primary) hypertension ICD-10: I10 ICD-9: 401.9 04/01/2015 Reason For Visit Reason For Visit Effective Dates Notes hypertension 11/20/2016 hypertension 07/24/2016 hypertension 01/24/2016 Hospital Follow Up 10/20/2015 Hospital Follow Up 10/19/2015 urinary retention/hesitancy 04/01/2015 has blood clots Results Observation Observation Code Item Item Code Result Date Comp Metabolic Ess414 NA 136 mEq/L 07/25/2016 Comp Metabolic Lyw703 K 4.1 mEq/L 07/25/2016 Comp Metabolic Rpc871 CL 102 mEq/L 07/25/2016 Comp Metabolic Vtn354 CO2 26.0 mEq/L 07/25/2016 Comp Metabolic Vuh047 ANION GAP 12 07/25/2016 Comp Metabolic Dzs188 GLUCOSE 105 mg/dL 07/25/2016 Comp Metabolic Gzj868 Creat 1.1 mg/dL 07/25/2016 Comp Metabolic Rzx593 eGFR 67 ml/min/1.73m2 07/25/2016 Comp Metabolic Aid517 BUN 20 mg/dL 07/25/2016 Comp Metabolic Ggn603 B/C Ratio 17.9 Ratio 07/25/2016 Comp Metabolic Xmu007 CALCIUM 8.8 mg/dL 07/25/2016 Comp Metabolic Yir606 ALK PHOS 71 U/L 07/25/2016 Comp Metabolic Lch475 AST(SGOT) 14 U/L 07/25/2016 Comp Metabolic Tmi010 ALT(SGPT) 13 U/L 07/25/2016 Comp Metabolic Xhx366 BILI T 0.6 mg/dL 07/25/2016 Comp Metabolic Csr591 ALBUMIN 3.9 g/dL 07/25/2016 Comp Metabolic Mrg892 TPRO 6.4 g/dL 07/25/2016 Comp Metabolic Enr815 GLOB 2.5 g/dL 07/25/2016 Comp Metabolic Tjp874 A/G Ratio 1.5 Ratio 07/25/2016 Comp Metabolic Exs365 Osmo 275 mOsmo 07/25/2016 Lipid Ord30 CHOL [...] 29.8 pg 07/25/2016 Cbc With Differential Ord2 [place]% 14.4 % 07/25/2016 Cbc With Differential Ord2 [...] 1.14 K/ul 07/25/2016 Cbc With Differential Ord2 [place] ABS# 0.8 K/ul 07/25/2016 Cbc With Differential [...] Ord2 RDW 14.9 % 04/01/2015 Comp Metabolic Fmu394 NA 124 mEq/L 04/01/2015 Comp Metabolic Cfk031 K 4.2 mEq/L 04/01/2015 Comp Metabolic Gdd136 CL 93 mEq/L 04/01/2015 Comp Metabolic Ojz974 CO2 24.0 mEq/L 04/01/2015 Comp Metabolic Xru796 ANION GAP 11 04/01/2015 Comp Metabolic Qlf689 GLUCOSE 103 mg/dL 04/01/2015 Comp Metabolic Jgj763 Creat 1.0 mg/dL 04/01/2015 Comp Metabolic Tsj633 eGFR 75 ml/min/1.73m2 04/01/2015 Comp Metabolic Bwe213 BUN 13 mg/dL 04/01/2015 Comp Metabolic Kbe986 B/C Ratio 12.7 Ratio 04/01/2015 Comp Metabolic Xzb128 CALCIUM 9.1 mg/dL 04/01/2015 Comp Metabolic Avd660 ALK PHOS 65 U/L 04/01/2015 Comp Metabolic Iky111 AST(SGOT) 15 U/L 04/01/2015 Comp Metabolic Urf887 ALT(SGPT) 15 U/L 04/01/2015 Comp Metabolic Tuz202 BILI T 1.1 mg/dL 04/01/2015 Comp Metabolic Ufz085 ALBUMIN 4.0 g/dL 04/01/2015 Comp Metabolic Wdz033 TPRO 6.2 g/dL 04/01/2015 Comp Metabolic Qlb296 GLOB 2.2 g/dL 04/01/2015 Comp Metabolic Iff577 A/G Ratio 1.8 Ratio 04/01/2015 Comp Metabolic Bvi696 Osmo 250 mOsmo 04/01/2015 Review of Systems System Result Effective Dates Constitutional No recent illness 11/20/2016 Constitutional No [...] conjunctiva/eyelids Overall: conjunctiva clear 04/01/2015 None Procedures No Procedures data Vital Signs Date Vital 11/20/2016 Blood Pressure 1: 130/88 Code: 8480-6 BMI: 27.7 Code: 04729-6 Heart Rate 1: 80 bpm Height: 5'10" SpO2: 95% Weight: 193 lbs 07/24/2016 Blood Pressure 1: 132/78 Code: 8480-6 BMI: 27.7 Code: 56204-3 Heart Rate 1: 78 bpm Height: 5'10" SpO2: 98% Weight: 193 lbs 01/24/2016 Blood Pressure 1: 140/76 Code: 8480-6 BMI: 27.7 Code: 05644-3 Heart Rate 1: 83 bpm Height: 5'10" SpO2: 95% Weight: 193 lbs 10/20/2015 Blood Pressure 1: 106/66 Code: 8480-6 BMI: 27.3 Code: 92365-5 Heart Rate 1: 75 bpm Height: 5'10" SpO2: 97% Weight: 190 lbs 8 oz 10/19/2015 Height: 5'10" 04/01/2015 Blood Pressure 1: 118/62 Code: 8480-6 BMI: 27.0 Code: 08203-7 Heart Rate 1: 77 bpm Height: 5'10" SpO2: 95% Weight: 188 lbs Functional Status No Functional Status data History of Present Illness Symptom Name Status Result Effective Date Notes hypertension Onset and Resolution ongoing 11/20/2016 None [...] data Encounters Encounter Performer Location Codes Date ( 02461 EST. PATIENT, LEVEL IV Diagnosis: Essential (primary) hypertension[ICD10: I10] Diagnosis: Mixed hyperlipidemia[ICD10: E78.2] Susannah Dumont MD, [facility] CPT- 4: 64522 11/20/2016 ([id number]) [id number] EST. PATIENT, LEVEL IV Diagnosis: Essential (primary) hypertension[ICD10: I10] Diagnosis: Mixed hyperlipidemia[ICD10: E78.2] Diagnosis: Atherosclerotic heart disease of [place] coronary artery without angina pectoris[ICD10: I25.10] Susannah Dumont MD, [facility] CPT-4: 11055 07/24/2016 ([id number]) Miscellaneous no charge Diagnosis: Impacted cerumen, right ear[ICD10: H61.21] Susannah Dumont MD, [facility] CPT-4: 43269 02/01/2016 ([id number]) [id number] EST. PATIENT, LEVEL III Diagnosis: Essential (primary) hypertension[ICD10: I10] Susannah Dumont MD, [facility] CPT-4: 68630 01/24/2016 ([id number]) 03480 EST. PATIENT, LEVEL III Diagnosis: Essential (primary) hypertension[ICD10: I10] Susannah Dumont MD, [facility] CPT-4: 15473 10/20/2015 ([id number]) OFFICE VISIT, NEW - LEVEL 3 Diagnosis: Essential (primary) hypertension[ICD10: I10] Diagnosis: Gross hematuria[ICD10: R31.0] Diagnosis: Anemia, unspecified[ICD10: D64.9] Yojana Dumont MD, [facility] CPT- 4: 64920 04/01/2015 Plan of Care Planned Activity Notes Codes Status Date Visit Plan: Hypertension - well controlled - continue with current medications, continue with no added salt diet. Pt has been encouraged to exercise daily.The pt has been advised to call the office if there are any acute concerns about change in blood pressure readings at home.Hyperlipidemia - pt has been counseled about appropriate [...] assure normal liver response to medications. 11/20/2016 Patient Education: Patient Medication Summary Completed 11/20/2016 Visit Plan: Hypertension - well controlled - continue with current medications, continue with no added salt diet. Pt has been encouraged to exercise daily.The pt has been advised to call the office if there are any acute concerns about change in blood pressure readings at home.Hyperlipidemia - pt has been counseled about appropriate [...] and to assure normal liver response to medications.muscle aches - stop statin x 1 week and start on coenzyme q10 07/24/2016 Patient Education: Patient Medication Summary Completed 07/24/2016 Appointment: Nurse Visit 02/01/2016 Patient Education: Patient Medication Summary Completed 02/01/2016 Visit Plan: Hypertension - well controlled - continue with current medications, continue with no added salt diet. Pt has been encouraged to exercise daily.The pt has been advised to call the office if there are any acute concerns about change in blood pressure readings at home.Cerumen impaction - unable to remove today due to severe obstruction. 01/24/2016 Appointment: Susannah Dumont WPtel: [address] [place], [place] [id number] (15 min) Moderate 01/24/2016 Patient Education: Patient Medication Summary Completed 01/24/2016 Visit Plan: Hypertension - well controlled - continue with current medications, continue with no added salt diet. Pt has been encouraged to exercise daily.The pt has been advised to call the office if there are any acute concerns about change in blood pressure readings at home. 10/20/2015 Patient Education: Patient Medication Summary Completed 10/20/2015 Visit Plan: pt was a no-show 10/19/2015 Appointment: [facility] [phone] [facility] [id number] [place] (15 min) Moderate 10/19/2015 Patient Education: Patient Medication Summary Completed 10/19/2015 Appointment: Sus[facility] Dum[facility] [phone] [facility] [id number] (15 min) Moderate 05/09/2015 Visit Plan: Hypertension - well controlled - continue with current medications, continue with no added salt diet. Pt has been encouraged to exercise daily.The pt has been advised to call the office if there are any acute concerns about change in blood pressure readings at home.Hematuria-HX of prostate cancer with TURP in 2011-seeing Dr Mccormack in [place] and following closely with them. Anemia-secondary to hematuria-check labs today 04/01/2015 Patient Education: Patient Medication Summary Completed 04/01/2015 Patient Education: Hypertension Completed 04/01/2015 Instructions Comment start on the coenzyme q10 [...] PROBIOTIC TWICE DAILY-SOME OF THE NAMES ARE XOXO Kitchen, Mojiva, [employer] CHECK LABS TODAY . Hypertension - well controlled - continue with current medications, continue with no added salt diet. Pt has been encouraged to exercise daily. The pt has been advised to call the office if there are any acute concerns about change in blood pressure readings at home. Hematuria-HX of prostate cancer with TURP in 2011-seeing Dr Mccormack in [place] and following closely with them. Anemia-secondary to hematuria-check labs today
--- OUTSIDE RECORDS SUMMARY | 2018-12-22 18:51 | XMS REPORT | CCD ---
Author Author Yojana Clark MD, [facility] Address [address] [place] [address] Phone Care Team Providers Care Security Tech Name Role Phone PP Unavailable CCM Unavailable Summary Purpose Interface Exchange Insurance Providers Payer name Policy type / Coverage type Covered alliance party ID Effective Begin Date Effective End Date WPS Medicare Part B Medicare Part B [id number] Unknown Unknown [facility] Medicare Part B [id number] Unknown Unknown Family history Father Diagnosis Age At Onset Arthritis Unknown Hypertension Unknown Brother Diagnosis Age At Onset Cancer Unknown Heart Attack Unknown Mother Diagnosis Age At Onset Skin cancer Unknown Cancer Unknown Social History Social History Element Codes Description Effective Dates Marital status Unknown Amber 07/24/2016 Number of children Unknown 3 04/01/[address]: 9108735 Former smoker 1995 04/01/[address]: 146815040 Never drinks alcohol 04/01/2015 Allergies, Adverse Reactions, [...] Active 05/26/2018 Unknown 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 [...] Z86.73 05/26/2018 Active 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 [...] (vit B-12) 1,000 mcg/mL injection solution RxNorm: 505040 Milliliter(s) Inj 10/09/2018 10/09/2018 Inactive cyanocobalamin (vit B-12) 1,000 mcg/mL injection solution RxNorm: 734893 1 Milliliter(s) Inj 09/30/2018 09/30/2018 Inactive cyanocobalamin (vit B-12) 1,000 mcg/mL injection solution RxNorm: 283323 1 Milliliter(s) Inj 09/23/2018 09/23/2018 Inactive cyanocobalamin (vit B-12) 1,000 mcg/mL injection solution RxNorm: 809468 Milliliter(s) Inj 09/11/2018 09/11/2018 Inactive Ativan 0.5 mg tablet RxNorm: 587134 1/2-1 Tablet(s) PO Q8 as needed 08/08/2018 No Stop Date Active Xanax 0.25 mg tablet RxNorm: 383485 1 Tablet(s) PO Q6 08/07/2018 08/07/2018 Inactive doxycycline hyclate 100 mg capsule RxNorm: 4704670 1 Capsule(s) PO BID 06/24/2018 07/03/2018 Inactive prednisone 20 mg tablet RxNorm: 375854 2 Tablet(s) PO daily 06/24/2018 06/28/2018 Inactive Kenalog 40 mg/mL suspension for injection RxNorm: 1222944 Milliliter(s) Inj 06/24/2018 06/24/2018 Inactive coenzyme Q10 100 mg tablet RxNorm: 521461 1 Tablet(s) PO daily 07/24/2016 02/18/2017 Inactive Norvasc 5 mg tablet RxNorm: 601033 1 Tablet(s) PO daily No Start Date Active metoprolol tartrate 25 mg tablet RxNorm: 972098 1 Tablet(s) PO BID No Start Date Active Ranexa 500 mg tablet,extended release RxNorm: 114342 1 Tablet(s) PO BID No Start Date Active benazepril 10 mg tablet RxNorm: 828463 1 Tablet(s) PO daily No Start Date Active aspirin 81 mg capsule,delayed release RxNorm: 805792 1 Capsule(s) PO No Start Date Active turmeric root extract 500 mg capsule RxNorm: 4490897 Capsule(s) PO daily No Start Date 10/19/2015 Inactive Aleve 220 mg capsule RxNorm: 5480150 1 Capsule(s) PO daily No Start Date 10/19/2015 Inactive clopidogrel 75 mg tablet RxNorm: 366080 Tablet(s) PO daily No Start Date 01/23/2016 Inactive simvastatin 5 mg tablet RxNorm: 529728 1 Tablet(s) PO QHS No Start Date 05/20/2017 Inactive Ativan 0.5 mg tablet RxNorm: 265305 1/2-1 Tablet(s) PO Q8 as needed No Start Date 08/07/2018 Inactive Aleve PM 220 mg-25 mg tablet RxNorm: 8797446 1 Tablet(s) PO QHS No Start Date 01/23/2016 Inactive magnesium RxNorm: PO No Start Date 10/19/2015 Inactive Xanax 0.25 mg tablet RxNorm: 561037 1 Tablet(s) PO Q6 No Start Date 2018 Inactive Fish Oil 1,000 mg capsule RxNorm: 1 Capsule(s) PO daily No Start Date 10/19/2015 Inactive Vitamin D3 2,000 unit tablet RxNorm: 489728 1 Tablet(s) PO daily No Start Date 10/19/2015 Inactive pantoprazole 20 mg tablet,delayed release RxNorm: 776246 1 Tablet(s) PO daily No Start Date 01/23/2016 Inactive Osteo Bi-Flex 250 mg-200 mg tablet RxNorm: 228582 Tablet(s) PO No Start Date 11/19/2016 Inactive Medication Administered Medication Codes Instructions Start Date Status cyanocobalamin (vit B-12) 1,000 mcg/mL injection solution RxNorm: 622748 Milliliter 10/09/2018 Active cyanocobalamin (vit B-12) 1,000 mcg/mL injection solution RxNorm: 099103 1Milliliter 09/30/2018 No longer Active cyanocobalamin (vit B-12) 1,000 mcg/mL injection solution RxNorm: 913750 1Milliliter 09/23/2018 No longer Active cyanocobalamin (vit B-12) 1,000 mcg/mL injection solution RxNorm: 762256 Milliliter 09/11/2018 No longer Active Kenalog 40 mg/mL suspension for injection RxNorm: 6911309 Milliliter 06/24/2018 No longer Active Immunizations No [...] ICD-9: V12.54 05/26/2018 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 [...] Item Item Code Result Date Comp Metabolic Xrf045 NA 136 mEq/L 07/25/2016 Comp Metabolic Mxr790 K 4.1 mEq/L 07/25/2016 Comp Metabolic Mal120 CL 102 mEq/L 07/25/2016 Comp Metabolic Voc694 CO2 26.0 mEq/L 07/25/2016 Comp Metabolic Xnz112 ANION GAP 12 07/25/2016 Comp Metabolic Jhb371 GLUCOSE 105 mg/dL 07/25/2016 Comp Metabolic Qml497 Creat 1.1 mg/dL 07/25/2016 Comp Metabolic Iej527 eGFR 67 ml/min/1.73m2 07/25/2016 Comp Metabolic Bre469 BUN 20 mg/dL 07/25/2016 Comp Metabolic Hom674 B/C Ratio 17.9 Ratio 07/25/2016 Comp Metabolic Eje857 CALCIUM 8.8 mg/dL 07/25/2016 Comp Metabolic Peu109 ALK PHOS 71 U/L 07/25/2016 Comp Metabolic Pih761 AST(SGOT) 14 U/L 07/25/2016 Comp Metabolic Luh314 ALT(SGPT) 13 U/L 07/25/2016 Comp Metabolic Ahv760 BILI T 0.6 mg/dL 07/25/2016 Comp Metabolic Msf034 ALBUMIN 3.9 g/dL 07/25/2016 Comp Metabolic Krp780 TPRO 6.4 g/dL 07/25/2016 Comp Metabolic Ebc709 GLOB 2.5 g/dL 07/25/2016 Comp Metabolic Hey535 A/G Ratio 1.5 Ratio 07/25/2016 Comp Metabolic Ims526 Osmo 275 mOsmo 07/25/2016 Lipid Ord30 CHOL [...] 29.8 pg 07/25/2016 Cbc With Differential Ord2 Garrard% 14.4 % 07/25/2016 Cbc With Differential Ord2 [...] 1.14 K/ul 07/25/2016 Cbc With Differential Ord2 [place] ABS# 0.8 K/ul 07/25/2016 Cbc With Differential [...] Ord2 RDW 14.9 % 04/01/2015 Comp Metabolic Xsm849 NA 124 mEq/L 04/01/2015 Comp Metabolic Etr988 K 4.2 mEq/L 04/01/2015 Comp Metabolic Cbx951 CL 93 mEq/L 04/01/2015 Comp Metabolic Eyy097 CO2 24.0 mEq/L 04/01/2015 Comp Metabolic Zau894 ANION GAP 11 04/01/2015 Comp Metabolic Jsc844 GLUCOSE 103 mg/dL 04/01/2015 Comp Metabolic Yyn525 Creat 1.0 mg/dL 04/01/2015 Comp Metabolic Tty189 eGFR 75 ml/min/1.73m2 04/01/2015 Comp Metabolic Sgz372 BUN 13 mg/dL 04/01/2015 Comp Metabolic Vzf052 B/C Ratio 12.7 Ratio 04/01/2015 Comp Metabolic Nfl512 CALCIUM 9.1 mg/dL 04/01/2015 Comp Metabolic Qvv867 ALK PHOS 65 U/L 04/01/2015 Comp Metabolic Zxo080 AST(SGOT) 15 U/L 04/01/2015 Comp Metabolic Fet028 ALT(SGPT) 15 U/L 04/01/2015 Comp Metabolic Gks410 BILI T 1.1 mg/dL 04/01/2015 Comp Metabolic Vbm660 ALBUMIN 4.0 g/dL 04/01/2015 Comp Metabolic Qam560 TPRO 6.2 g/dL 04/01/2015 Comp Metabolic Njz042 GLOB 2.2 g/dL 04/01/2015 Comp Metabolic Asy708 A/G Ratio 1.8 Ratio 04/01/2015 Comp Metabolic Xjb993 Osmo 250 mOsmo 04/01/2015 Review of Systems [...] 4: J3420 10/09/2018 THER/PROPH/DIAG INJ SC/IM CPT-4: 01607 09/30/2018 VITAMIN B12 INJECTION CPT- 4: J3420 09/30/2018 THER/PROPH/DIAG INJ SC/IM CPT-4: 05328 09/23/2018 VITAMIN B12 INJECTION CPT- 4: J3420 09/23/2018 THER/PROPH/DIAG INJ SC/IM CPT-4: 23531 09/11/2018 VITAMIN B12 INJECTION CPT- 4: J3420 09/11/2018 THER/PROPH/DIAG INJ SC/IM CPT-4: 60794 06/24/2018 TRIAMCINOLONE ACET INJ NOS CPT-4: J3301 06/24/2018 Vital Signs Date Vital 06/24/2018 Blood Pressure 1: 150/88 Code: 8480-6 BMI: 27.0 Code: 37723-8 Heart Rate 1: 85 bpm Height: 5'10" SpO2: 98% Temperature: 36.8 (C) / 98.2 (F) Weight: 188 lbs 05/26/2018 Blood Pressure 1: 128/68 Code: 8480-6 BMI: 27.0 Code: 11666-5 Heart Rate 1: 62 bpm Height: 5'10" SpO2: 99% Weight: 188 lbs 05/21/2017 Blood Pressure 1: 142/84 Code: 8480-6 BMI: 27.1 Code: 81435-3 Heart Rate 1: 75 bpm Height: 5'10" SpO2: 97% Weight: 189 lbs 11/20/2016 Blood Pressure 1: 130/88 Code: 8480-6 BMI: 27.7 Code: 04948-0 Heart Rate 1: 80 bpm Height: 5'10" SpO2: 95% Weight: 193 lbs 07/24/2016 Blood Pressure 1: 132/78 Code: 8480-6 BMI: 27.7 Code: 07376-0 Heart Rate 1: 78 bpm Height: 5'10" SpO2: 98% Weight: 193 lbs 01/24/2016 Blood Pressure 1: 140/76 Code: 8480-6 BMI: 27.7 Code: 56672-8 Heart Rate 1: 83 bpm Height: 5'10" SpO2: 95% Weight: 193 lbs 10/20/2015 Blood Pressure 1: 106/66 Code: 8480-6 BMI: 27.3 Code: 22697-3 Heart Rate 1: 75 bpm Height: 5'10" SpO2: 97% Weight: 190 lbs 8 oz 10/19/2015 Height: 5'10" 04/01/2015 Blood Pressure 1: 118/62 Code: 8480-6 BMI: 27.0 Code: 63859-4 Heart Rate 1: 77 bpm Height: 5'10" [...] data Encounters Encounter Performer Location Codes Date [id number] EST. PATIENT, LEVEL IV Diagnosis: Acute bronchitis due to other specified organisms[ICD10: J20.8] Lizzette Dumont MD, [facility] CPT-4: 01427 06/24/2018 ([id number]) 89770 EST. PATIENT, LEVEL IV Diagnosis: Essential (primary) hypertension[ICD10: I10] Diagnosis: Mixed hyperlipidemia[ICD10: E78.2] Diagnosis: Personal history of transient ischemic attack (TIA), and cerebral infarction without residual deficits[ICD10: Z86.73] Diagnosis: 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[ICD10: I63.59] Susannah Dumont MD, [facility] CPT-4: 03921 05/26/2018 ([id number]) 63007 EST. PATIENT, LEVEL IV Diagnosis: Essential (primary) hypertension[ICD10: I10] Diagnosis: Mixed hyperlipidemia[ICD10: E78.2] Susannah Dumont MD, [facility] CPT- 4: 53293 05/21/2017 ([id number]) 21232 EST. PATIENT, LEVEL IV Diagnosis: Essential (primary) hypertension[ICD10: I10] Diagnosis: Mixed hyperlipidemia[ICD10: E78.2] Susannah Dumont MD, [facility] CPT- 4: 45667 11/20/2016 ([id number]) 00874 EST. 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 PATIENT, LEVEL III Diagnosis: Essential (primary) hypertension[ICD10: I10] [facility] CPT-4: 89477 01/24/2016 ([id number]) 74679 EST. PATIENT, LEVEL III Diagnosis: Essential (primary) hypertension[ICD10: I10] [facility] CPT-4: 41462 10/20/2015 ([id number]) OFFICE VISIT, NEW - LEVEL 3 Diagnosis: Essential (primary) hypertension[ICD10: I10] Diagnosis: Gross hematuria[ICD10: R31.0] Diagnosis: Anemia, unspecified[ICD10: D64.9] [facility] CPT- 4: 95632 04/01/2015 Plan of Care Planned Activity Notes Codes Status Date Patient Education: Patient Medication Summary Completed 10/09/2018 [...] acutely worsen. 06/24/2018 Appointment: Lizzette Squires [facility]: [facility] [place] 2[place] (15 min) Moderate 06/24/2018 Patient Education: Patient Medication Summary Completed 06/24/2018 [facility] [phone] [phone] (15 min) Moderate 05/27/2018 Visit Plan: Stroke - uncertain eitology - treated with TPAse - I have recommended referral to Dr. Mason - neurologist in [place] - pt to continue with Plavix, aspirin, [...] medications. 05/26/2018 [facility] [phone] [facility] (15 min) Moderate 05/26/2018 Patient Education: Patient Medication Summary Completed 05/26/2018 Patient Education: Cholesterol Management Completed 05/26/2018 Care Plan: Referral Order SNOMED-CT : [id number] Pending 05/26/2018 Visit Plan: Hypertension - well [...] medications. 05/21/2017 App[facility]ment[facility] [phone] [facility] (15 min) Moderate 05/21/2017 Patient [...] medications. 11/20/2016 App[facility]ment[facility] [phone] [facility] (15 min) Moderate 11/20/2016 Patient [...] severe obstruction. 01/24/2016 App[facility]ment: [facility] [phone] [facility] (15 min) Moderate 01/24/2016 Patient Education: Patient [...] no-show 10/19/2015 App[facility]ment[facility] [phone] [facility] (15 min) Moderate 10/19/2015 Patient Education: Patient Medication Summary Completed 10/19/2015 Appointment: Susannah Dumont [facility]Ptel: [facility] [place] [place] (15 min) Moderate 05/09/2015 Visit Plan: Hypertension - well controlled - continue with current medications, continue with no added salt diet. Pt has been encouraged to exercise daily. The pt has been advised to call the office if there are any acute concerns about change in blood pressure readings at home. Hematuria-HX of prostate cancer with TURP in 2011-seeing Dr Mccormack in [place] and following closely with them. Anemia-secondary to hematuria-check labs today 04/01/2015 Patient Education: Patient Medication Summary Completed 04/01/2015 Patient Education: Hypertension Completed 04/01/2015 Referral: [facility] Referral Appointment Requested Referral: [facility] 05/27 Referral info faxed. They will contact [...] PROBIOTIC TWICE DAILY-SOME OF THE NAMES ARE [facility], [facility], [employer] CHECK LABS TODAY . Hypertension - well controlled - continue with current medications, continue with no added salt diet. Pt has been encouraged to exercise daily. The pt has been advised to call the office if there are any acute concerns about change in blood pressure readings at home. Hematuria-HX of prostate cancer with TURP in 2011-seeing Dr Mccormack in [place] and following closely with them. Anemia-secondary to [...]
[2018-12-22 18:54] LABS: BASOPHILS % (AUTO) 0 % (0-10); EOSINOPHILS # (AUTO) 0.2 10^3/uL (0.0-0.3); EOSINOPHILS % (AUTO) 3 % (0-10); HEMATOCRIT 37 % (40-54); HEMOGLOBIN 12.3 G/DL (13.3-17.7); LYMPHOCYTES # (AUTO) 1.1 X 10^3 (1.0-4.0); LYMPHOCYTES % (AUTO) 14 % (12-44); MEAN CORPUSCULAR HEMOGLOBIN 29 PG (25-34); MEAN CORPUSCULAR HGB CONC 33 G/DL (32-36); MEAN CORPUSCULAR VOLUME 88 FL (80-99); MEAN PLATELET VOLUME 9.2 FL (7.4-10.4); MONOCYTES % (AUTO) 13 % (0-12); NEUTROPHILS # (AUTO) 5.5 X 10^3 (1.8-7.8); NEUTROPHILS % (AUTO) 70 % (42-75); PLATELET COUNT 208 10^3/uL (130-400); RED CELL DISTRIBUTION WIDTH 13.8 % (10.0-14.5); WHITE BLOOD COUNT 7.9 10^3/uL (4.3-11.0)
[2018-12-22] MEDS: NITROGLYCERIN 0.4 MG SL TABS BTL 25'S SL PRN (18:55)
--- NOTE | 2018-12-22 18:55 | NUR ---
assumed care of this patient at this time. introduced self to patient and family at bedside. patient is alert and oriented and denies needs at this time. call light within reach will continue to monitor.
--- OUTSIDE RECORDS SUMMARY | 2018-12-22 19:00 | XMS REPORT | Continuity of Care Document ---
Author Organization Unknown Address Unknown Allergies Active Description Code Type Severity Reaction Onset Reported/Identified Relationship to Patient Clinical Status Yes No Known Drug Allergies [id number] Drug Allergy Unknown N/A 10/04/2018 Yes Slfrmht-Opc-Zsq Reductase Inhibitor [id number] Drug Allergy Mild N/A 10/05/2018 Medications There is no data. Problems Date [...] VAZQUEZ MD Ot 414.01 CORONARY ATHEROSCLEROSIS OF [place] CORON 12/30/2012 PIERRE VAZQUEZ MD Ot 433.10 CAROTID ARTERY OCCLUSION W O CEREBRAL IN 12/30/2012 PIERRE VAZQUEZ MD Ot 433.30 MULT BILTRAL ARTERY OCCLUSION WO CEREBRA 12/30/2012 PIERRE VAZQUEZ MD Ot 780.4 DIZZINESS AND GIDDINESS 12/30/2012 PIERRE VAZQUEZ MD Ot V45.01 CARDIAC PACEMAKER IN SITU 12/30/2012 GEORGE ZUNIGA, PIERRE Larios Ot V45.81 AORTOCORONARY BYPASS 07/16/2014 Ot 397.0 [...] GEORGE ZUNIGA, PIERRE Larios Ot 599.70 07/16/2014 PIERRE VAZQUEZ MD Ot 562.10 07/16/2014 PIERRE VAZQUEZ MD Ot 593.2 07/16/2014 PIERRE VAZQUEZ MD Ot 599.70 07/16/2014 PIERRE VAZQUEZ MD Ot 788.1 07/16/2014 PIERRE VAZQUZE MD Ot 789.00 07/23/2014 ANA DO, LADAN F Ot 715.36 07/23/2014 ANA DO, LADAN F Ot V72.83 07/23/2014 ANA DO, LADAN F Ot V74.8 07/27/2014 ANA DO, LADAN F Ot 717.6 LOOSE BODY IN KNEE 07/27/2014 LADAN PEREZ DO Ot 717.7 CHONDROMALACIA PATELLAE 07/27/2014 LADAN PEREZ [...] FERRER MD Ot 414.01 CORONARY ATHEROSCLEROSIS OF [place] CORON 11/08/2014 NACHO FERRER MD Ot 414.02 CORON ATHEROSCLEROSIS AUTOLOG VEIN BYPAS 11/08/2014 NACHO FERRER MD Ot 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 11/08/2014 NACHO FERRER MD Ot 427.81 SINOATRIAL NODE DYSFUNCT 11/08/2014 NACHO FERRER MD Ot V45.01 CARDIAC PACEMAKER IN SITU 11/08/2014 NACHO FERRER MD Ot V45.81 AORTOCORONARY BYPASS 03/29/2015 COLETTE STOLL DO Ot R31.0 GROSS HEMATURIA 03/29/2015 COLETTE STOLL DO Ot R33.9 RETENTION OF URINE, UNSPECIFIED 03/29/2015 COLETTE STOLL DO Ot 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 03/29/2015 COLETTE STOLL DO Ot 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 03/29/2015 COLETTE STOLL [...] 04/30/2015 NACHO FERRER MD Ot 433.10 04/30/2015 PIERRE VAZQUEZ MD Ot 592.0 04/30/2015 PIERRE VAZQUEZ MD Ot 599.70 04/30/2015 PIERRE VAZQUEZ MD Ot 562.10 04/30/2015 PIERRE VAZQUEZ MD Ot 593.2 04/30/2015 PIERRE VAZQUEZ MD Ot 599.70 04/30/2015 PIERRE VAZQUEZ MD Ot 788.1 04/30/2015 PIERRE VAZQUEZ MD Ot 789.00 04/30/2015 ANA DO, LADAN F Ot 715.36 04/30/2015 ANA DO, LADAN F Ot V72.83 04/30/2015 ANA DO, LADAN F Ot V74.8 04/30/2015 NACHO FERRER MD Ot E78.5 HYPERLIPIDEMIA, UNSPECIFIED 04/30/2015 NACHO FERRER MD Ot I10 ESSENTIAL (PRIMARY) HYPERTENSION 04/30/2015 NACHO FERRER MD Ot I25.119 ATHSCL HEART DISEASE OF [place] COR ART W 04/30/2015 NACHO FERRER MD Ot I49.1 ATRIAL PREMATURE DEPOLARIZATION 04/30/2015 NACHO FERRER MD Ot I49.5 SICK SINUS SYNDROME 04/30/2015 NACHO FERRER MD Ot Z87.891 PERSONAL HISTORY OF NICOTINE DEPENDENCE 04/30/2015 NACHO FERRER MD Ot Z95.0 PRESENCE OF CARDIAC PACEMAKER 04/30/2015 NACHO FERRER MD Ot E78.5 04/30/2015 NACHO FERRER MD Ot I10 04/30/2015 CARISSA ZUNIGA, NACHO Keane Ot I25.119 04/30/2015 NACHO FERRER MD Ot I49.1 04/30/2015 NACHO FERRER MD Ot I49.5 04/30/2015 NACHO FERRER MD Ot Z87.891 04/30/2015 NACHO FERRER MD Ot Z95.0 05/26/2015 NACOH FERRER MD Ot R07.9 06/01/2015 NACHO FERRER MD Ot R07.9 10/05/2015 BEVERLEY YOUNGER MD Ot E78.5 HYPERLIPIDEMIA, UNSPECIFIED 10/05/2015 BEVERLEY YOUNGER MD Ot I10 ESSENTIAL (PRIMARY) HYPERTENSION 10/05/2015 BEVERLEY YOUNGER MD Ot I25.750 ATHSCL [place] COR ART OF TXPLT HEART W U 10/05/2015 BEVERLEY YOUNGER MD Ot I49.3 VENTRICULAR PREMATURE DEPOLARIZATION 10/05/2015 BEVERLEY YOUNGER MD Ot I49.5 SICK SINUS SYNDROME 10/05/2015 BEVERLEY [...] 10/05/2015 BEVERLEY YOUNGER MD Ot I25.750 ATHSCL [place] COR ART OF TXPLT HEART W U 10/05/2015 BEVERLEY YOUNGER MD Ot I49.3 VENTRICULAR PREMATURE DEPOLARIZATION 10/05/2015 BEVERLEY YOUNGER MD Ot I49.5 SICK SINUS SYNDROME 10/05/2015 BEVERLEY [...] 185 MALIGN NEOPL PROSTATE 10/11/2015 MAMTA MOHAN MD Ot L98.9 DISORDER OF THE SKIN AND [...] Ot E78.5 HYPERLIPIDEMIA, UNSPECIFIED 02/15/2016 NACHO FERRER MD Ot I10 ESSENTIAL (PRIMARY) HYPERTENSION 02/15/2016 NACHO FERRER MD Ot I25.10 ATHSCL HEART DISEASE OF [place] CORONARY 02/15/2016 NACHO FERRER MD Ot I48.0 PAROXYSMAL ATRIAL FIBRILLATION 02/15/2016 NACHO FERRER MD Ot I49.5 SICK SINUS SYNDROME 02/15/2016 NACHO FERRER MD Ot Z45.010 ENCNTR FOR CHECKING AND TEST OF CARD PAC 02/15/2016 NACHO FERRER MD Ot 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 03/12/2016 NACHO FERRER MD, Ot E78.5 HYPERLIPIDEMIA, UNSPECIFIED 03/12/2016 NACHO FERRER MD Ot I10 ESSENTIAL (PRIMARY) HYPERTENSION 03/12/2016 NACHO FERRER MD Ot I25.10 ATHSCL HEART DISEASE OF [place] CORONARY 03/12/2016 NACHO FERRER MD Ot I48.0 PAROXYSMAL ATRIAL FIBRILLATION 03/12/2016 NACHO FERRER MD Ot I49.5 SICK SINUS SYNDROME 03/12/2016 NACHO FERRER MD Ot Z45.010 ENCNTR FOR CHECKING AND TEST OF CARD PAC 03/12/2016 NACHO FERRER MD Ot 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 03/14/2016 NACHO FERRER MD Ot E78.5 HYPERLIPIDEMIA, UNSPECIFIED 03/14/2016 NACHO FERRER MD Ot I10 ESSENTIAL (PRIMARY) HYPERTENSION 03/14/2016 NACHO FERRER MD Ot I25.10 ATHSCL HEART DISEASE OF [place] CORONARY 03/14/2016 NACHO FERRER MD Ot I48.0 PAROXYSMAL ATRIAL FIBRILLATION 03/14/2016 NACHO FERRER MD Ot I49.5 SICK SINUS SYNDROME 03/14/2016 NACHO FERRER MD Ot Z45.010 ENCNTR FOR CHECKING AND TEST OF CARD PAC 03/14/2016 NACHO FERRER MD Ot Z79.899 OTHER NURSING HOME (CURRENT) DRUG THERAPY 08/24/2016 Ot 185 MALIGN NEOPL PROSTATE 08/24/2016 Ot 185 MALIGN NEOPL PROSTATE 08/24/2016 Ot V81.5 SCREEN FOR NEPHROPATHY 08/24/2016 Ot 185 MALIGN NEOPL PROSTATE 08/24/2016 Ot V72.63 PRE-PROCEDURAL LABORATORY EXAMINATION 08/24/2016 Ot V72.81 [id number] CARDIOVASCULAR 08/24/2016 Ot V74.8 SCREEN-BACTERIAL DIS NEC 08/24/2016 Ot 185 MALIGN NEOPL [...] Ot E78.5 HYPERLIPIDEMIA, UNSPECIFIED 08/24/2016 NACHO FERRER MD, Ot I10 ESSENTIAL (PRIMARY) HYPERTENSION 08/24/2016 NACHO FERRER MD, Ot I25.10 ATHSCL HEART DISEASE OF [place] CORONARY 08/24/2016 NACHO FERRER MD, Ot 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 08/24/2016 NACHO FERRER MD, Ot I49.5 SICK SINUS SYNDROME 08/24/2016 NACHO FERRER MD, Ot R07.89 OTHER CHEST PAIN 08/24/2016 NACHO FERRER MD, Ot T82.855A STENOSIS OF CORONARY ARTERY STENT, INITI 08/24/2016 NACHO FERRER MD, Ot T82.857A STENOSIS OF OTHER CARDIAC PROSTH DEV/GRF 08/24/2016 NACHO FERRER MD Ot Z79.899 OTHER NURSING HOME (CURRENT) DRUG THERAPY 08/24/2016 NACHO FERRER MD Ot Z95.0 PRESENCE OF CARDIAC PACEMAKER 09/03/2016 NACHO FERRER MD Ot E78.5 HYPERLIPIDEMIA, UNSPECIFIED 09/03/2016 NACOH FERRER MD Ot I10 ESSENTIAL (PRIMARY) HYPERTENSION 09/03/2016 NACHO FERRER MD Ot I25.10 ATHSCL HEART DISEASE OF [place] CORONARY 09/03/2016 NACHO FERRER MD Ot 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 09/03/2016 NACHO FERRER MD Ot I49.5 SICK SINUS SYNDROME 09/03/2016 NACHO FERRER MD Ot R07.89 OTHER CHEST PAIN 09/03/2016 NACHO FERRER MD Ot T82.855A STENOSIS OF CORONARY ARTERY STENT, INITI 09/03/2016 NACHO FERRER MD Ot T82.857A STENOSIS OF OTHER CARDIAC PROSTH DEV/GRF 09/03/2016 NACHO FERRER MD Ot Z79.899 OTHER NURSING HOME (CURRENT) DRUG THERAPY 09/03/2016 NACHO FERRER MD Ot Z95.0 PRESENCE OF CARDIAC PACEMAKER 09/13/2016 NACHO FERRER MD Ot E78.5 HYPERLIPIDEMIA, UNSPECIFIED 09/13/2016 NACHO FERRER MD Ot I10 ESSENTIAL (PRIMARY) HYPERTENSION 09/13/2016 NACHO FERRER MD Ot I25.10 ATHSCL HEART DISEASE OF [place] CORONARY 09/13/2016 NACHO FERRER MD Ot 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 09/13/2016 NACHO FERRER MD Ot I49.5 SICK SINUS SYNDROME 09/13/2016 NACHO FERRER MD Ot R07.89 OTHER CHEST PAIN 09/13/2016 NACHO FERRER MD Ot T82.855A STENOSIS OF CORONARY ARTERY STENT, INITI 09/13/2016 NACHO FERRER MD Ot T82.857A STENOSIS OF OTHER CARDIAC PROSTH DEV/GRF 09/13/2016 NACHO FERRER MD Ot Z79.899 OTHER NURSING HOME (CURRENT) DRUG THERAPY 09/13/2016 NACHO FERRER MD Ot Z95.0 PRESENCE OF CARDIAC PACEMAKER 09/23/2016 NACHO FERRER MD Ot E78.5 HYPERLIPIDEMIA, UNSPECIFIED 09/23/2016 NACHO FERRER MD Ot I10 ESSENTIAL (PRIMARY) HYPERTENSION 09/23/2016 NACHO FERRER MD Ot I25.10 ATHSCL HEART DISEASE OF [place] CORONARY 09/23/2016 NACHO FERRER MD Ot 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 09/23/2016 NACHO FERRER MD Ot I49.5 SICK SINUS SYNDROME 09/23/2016 NACHO FERRER MD Ot R07.89 OTHER CHEST PAIN 09/23/2016 NACHO FERRER MD Ot T82.855A STENOSIS OF CORONARY ARTERY STENT, INITI 09/23/2016 NACHO FERRER MD Ot T82.857A STENOSIS OF OTHER CARDIAC PROSTH DEV/GRF 09/23/2016 NACHO FERRER MD Ot Z79.899 OTHER NURSING HOME (CURRENT) DRUG THERAPY 09/23/2016 NACHO FERRER MD Ot Z95.0 PRESENCE OF CARDIAC PACEMAKER 11/29/2017 NACHO FERRER MD Ot E78.5 HYPERLIPIDEMIA, UNSPECIFIED 11/29/2017 NACHO FERRER MD Ot I07.1 RHEUMATIC TRICUSPID INSUFFICIENCY 11/29/2017 NACHO FERRER MD Ot I10 ESSENTIAL (PRIMARY) HYPERTENSION 11/29/2017 NACHO FERRER MD Ot I25.10 ATHSCL HEART DISEASE OF [place] CORONARY 11/29/2017 NACHO FERRER MD Ot I49.5 SICK SINUS SYNDROME 12/19/2017 NACHO FERRER MD Ot E78.5 HYPERLIPIDEMIA, UNSPECIFIED 12/19/2017 NACHO FERRER MD Ot I07.1 RHEUMATIC TRICUSPID INSUFFICIENCY 12/19/2017 NACHO FERRER MD Ot I10 ESSENTIAL (PRIMARY) HYPERTENSION 12/19/2017 NACHO FERRER MD Ot I25.10 ATHSCL HEART DISEASE OF [place] CORONARY 12/19/2017 NACHO FERRER MD Ot I49.5 SICK SINUS SYNDROME 12/25/2017 NACHO FERRER MD Ot E78.5 HYPERLIPIDEMIA, UNSPECIFIED 12/25/2017 NACHO FERRER MD Ot I07.1 RHEUMATIC TRICUSPID INSUFFICIENCY 12/25/2017 NACHO FERRER MD Ot I10 ESSENTIAL (PRIMARY) HYPERTENSION 12/25/2017 CARISSA ZUNIGA, NACHO Keane Ot I25.10 ATHSCL HEART DISEASE OF [place] CORONARY 12/25/2017 CARISSA ZUNIGA, NACHO Keane Ot I49.5 SICK SINUS SYNDROME 05/19/2018 BEVERLEY YOUNGER MD Ot E83.42 HYPOMAGNESEMIA 05/19/2018 BEVERLEY YOUNGER MD Ot E87.6 HYPOKALEMIA 05/19/2018 BEVERLEY YOUNGER MD Ot G81.91 HEMIPLEGIA, UNSPECIFIED AFFECTING RIGHT 05/19/2018 BEVERLEY YOUNGER MD Ot I10 ESSENTIAL (PRIMARY) HYPERTENSION 05/19/2018 BEVERLEY YOUNGER MD Ot I25.10 ATHSCL HEART DISEASE OF [place] CORONARY 05/19/2018 BEVERLEY YOUNGER MD Ot I25.2 OLD MYOCARDIAL INFARCTION 05/19/2018 BEVERLEY YOUNGER MD Ot I25.810 ATHEROSCLEROSIS OF [place] W/O ANGINA PECTO 05/19/2018 BEVERLEY YOUNGER MD Ot I49.5 SICK SINUS SYNDROME 05/19/2018 BEVERLEY YOUNGER MD Ot 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 05/19/2018 BEVERLEY YOUNGER MD Ot J45.909 UNSPECIFIED ASTHMA, UNCOMPLICATED 05/19/2018 BEVERLEY YOUNGER MD Ot M19.91 PRIMARY OSTEOARTHRITIS, UNSPECIFIED SITE 05/19/2018 BEVERLEY YOUNGER MD Ot M54.9 DORSALGIA, UNSPECIFIED 05/19/2018 BEVERLEY YOUNGER MD Ot N30.00 ACUTE CYSTITIS WITHOUT HEMATURIA 05/19/2018 BEVERLEY YOUNGER MD Ot R29.709 NIHSS SCORE 9 05/19/2018 BEVERLEY YOUNGER MD Ot R47.01 APHASIA 05/19/2018 BEVERLEY YOUNGER MD Ot R47.81 SLURRED SPEECH 05/19/2018 BEVERLEY YOUNGER MD Ot T82.855A STENOSIS OF CORONARY ARTERY STENT, INITI 05/19/2018 BEVERLEY YOUNGER MD Ot Z85.46 PERSONAL HISTORY OF MALIGNANT NEOPLASM O 05/19/2018 BEVERLEY YOUNGER MD Ot Z87.891 PERSONAL HISTORY OF NICOTINE DEPENDENCE 05/19/2018 BEVERLEY YOUNGER MD Ot Z95.0 PRESENCE OF CARDIAC PACEMAKER 05/19/2018 BEVERLEY YOUNGER MD Ot Z95.1 PRESENCE OF AORTOCORONARY BYPASS GRAFT 05/19/2018 BEVERLEY YOUNGER MD Ot Z95.5 PRESENCE OF CORONARY ANGIOPLASTY IMPLANT 05/20/2018 BEVERLEY YOUNGER MD Ot E83.42 HYPOMAGNESEMIA 05/20/2018 BEVERLEY YOUNGER MD Ot E87.6 HYPOKALEMIA 05/20/2018 BEVERLEY YOUNGER MD Ot G81.91 HEMIPLEGIA, UNSPECIFIED AFFECTING RIGHT 05/20/2018 BEVERLEY YOUNGER MD Ot I10 ESSENTIAL (PRIMARY) HYPERTENSION 05/20/2018 BEVERLEY YOUNGER MD Ot I25.10 ATHSCL HEART DISEASE OF [place] CORONARY 05/20/2018 BEVERLEY YOUNGER MD Ot I25.2 OLD MYOCARDIAL INFARCTION 05/20/2018 BEVERLEY YOUNGER MD Ot I25.810 ATHEROSCLEROSIS OF [place] W/O ANGINA PECTO 05/20/2018 BEVERLEY YOUNGER MD Ot I49.5 SICK SINUS SYNDROME 05/20/2018 BEVERLEY YOUNGER MD Ot 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 05/20/2018 BEVERLEY YOUNGER MD Ot J45.909 UNSPECIFIED ASTHMA, UNCOMPLICATED 05/20/2018 BEVERLEY YOUNGER MD Ot M19.91 PRIMARY OSTEOARTHRITIS, UNSPECIFIED SITE 05/20/2018 BEVERLEY YOUNGER MD Ot M54.9 DORSALGIA, UNSPECIFIED 05/20/2018 BEVERLEY YOUNGER MD Ot N30.00 ACUTE CYSTITIS WITHOUT HEMATURIA 05/20/2018 BEVERLEY YOUNGER MD Ot R29.709 NIHSS SCORE 9 05/20/2018 BEVERLEY YOUNGER MD Ot R47.01 APHASIA 05/20/2018 BEVERLEY YOUNGER MD Ot R47.81 SLURRED SPEECH 05/20/2018 BEVERLEY YOUNGER MD Ot T82.855A STENOSIS OF CORONARY ARTERY STENT, INITI 05/20/2018 BEVERLEY YOUNGER MD Ot Z85.46 PERSONAL HISTORY OF MALIGNANT NEOPLASM O 05/20/2018 BEVERLEY YOUNGER MD Ot Z87.891 PERSONAL HISTORY OF NICOTINE DEPENDENCE 05/20/2018 BEVERLEY YOUNGER MD Ot Z95.0 PRESENCE OF CARDIAC PACEMAKER 05/20/2018 BEVERLEY YOUNGER MD Ot Z95.1 PRESENCE OF AORTOCORONARY BYPASS GRAFT 05/20/2018 BEVERLEY YOUNGER MD Ot Z95.5 PRESENCE OF CORONARY ANGIOPLASTY IMPLANT 05/20/2018 BEVERLEY YOUNGER MD Ot E83.42 HYPOMAGNESEMIA 05/20/2018 BEVERLEY YOUNGER MD Ot E87.6 HYPOKALEMIA 05/20/2018 BEVERLEY YOUNGER MD Ot G81.91 HEMIPLEGIA, UNSPECIFIED AFFECTING RIGHT 05/20/2018 BEVERLEY YOUNGER MD Ot I10 ESSENTIAL (PRIMARY) HYPERTENSION 05/20/2018 BEVERLEY YOUNGER MD Ot I25.10 ATHSCL HEART DISEASE OF [place] CORONARY 05/20/2018 BEVERLEY YOUNGER MD Ot I25.2 OLD MYOCARDIAL INFARCTION 05/20/2018 BEVERLEY YOUNGER MD Ot I25.810 ATHEROSCLEROSIS OF [place] W/O ANGINA PECTO 05/20/2018 BEVERLEY YOUNGER MD Ot I49.5 SICK SINUS SYNDROME 05/20/2018 BEVERLEY YOUNGER MD Ot 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 05/20/2018 BEVERLEY YOUNGER MD Ot J45.909 UNSPECIFIED ASTHMA, UNCOMPLICATED 05/20/2018 BEVERLEY YOUNGER MD Ot M19.91 PRIMARY OSTEOARTHRITIS, UNSPECIFIED SITE 05/20/2018 BEVERLEY YOUNGER MD Ot M54.9 DORSALGIA, UNSPECIFIED 05/20/2018 BEVERLEY YOUNGER MD Ot N30.00 ACUTE CYSTITIS WITHOUT HEMATURIA 05/20/2018 BEVERLEY YOUNGER MD Ot R29.709 NIHSS SCORE 9 05/20/2018 BEVERLEY YOUNGER MD Ot R47.01 APHASIA 05/20/2018 BEVERLEY YOUNGER MD Ot R47.81 SLURRED SPEECH 05/20/2018 BEVERLEY YOUNGER MD Ot T82.855A STENOSIS OF CORONARY ARTERY STENT, INITI 05/20/2018 BEVERLEY YOUNGER MD Ot Z85.46 PERSONAL HISTORY OF MALIGNANT NEOPLASM O 05/20/2018 BEVERLEY YOUNGER MD Ot Z87.891 PERSONAL HISTORY OF NICOTINE DEPENDENCE 05/20/2018 BEVERLEY YOUNGER MD Ot Z95.0 PRESENCE OF CARDIAC PACEMAKER 05/20/2018 BEVERLEY YOUNGER MD Ot Z95.1 PRESENCE OF AORTOCORONARY BYPASS GRAFT 05/20/2018 BEVERLEY YOUNGER MD Ot Z95.5 PRESENCE OF CORONARY ANGIOPLASTY IMPLANT 10/04/2018 NACHO FERRER MD Ot 272.4 HYPERLIPIDEMIA NEC/NOS 10/04/2018 NACHO FERRER MD Ot 401.9 HYPERTENSION NOS 10/04/2018 NACHO FERRER MD Ot 414.00 CORON ATHEROSCLER NOS TYPE VESSEL, NATIV 10/04/2018 NACHO FERRER MD Ot 427.81 SINOATRIAL NODE DYSFUNCT 10/04/2018 NACHO FERRER MD Ot 433.10 CAROTID ARTERY OCCLUSION W O CEREBRAL IN 10/04/2018 PIERRE VAZQUEZ MD Ot 592.0 CALCULUS OF KIDNEY 10/04/2018 PIERRE VAZQUEZ MD Ot 599.70 HEMATURIA, UNSPECIFIED 10/04/2018 PIERRE VAZQUEZ MD Ot 562.10 DIVERTICULOSIS COLON (W/O MENT OF HEMORR 10/04/2018 PIERRE VAZQUEZ MD Ot 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, ACQUIRED 10/04/2018 PIERRE VAZQUEZ MD Ot 599.70 HEMATURIA, UNSPECIFIED 10/04/2018 PIERRE VZAQUEZ MD Ot 788.1 DYSURIA 10/04/2018 PIERRE VAZQUEZ MD Ot 789.00 ABDOMINAL PAIN, UNSPECIFIED SITE 10/04/2018 LADAN PEREZ DO Ot 715.36 LOC OSTEOARTH NOS-L/LEG 10/04/2018 LADAN PEREZ DO Ot V72.83 EXAM PRE-OPERATIVE NEC 10/04/2018 LADAN PEREZ DO Ot V74.8 SCREEN-BACTERIAL DIS NEC 10/04/2018 NACHO FERRER MD Ot R07.9 CHEST PAIN, UNSPECIFIED 10/04/2018 NACHO FERRER MD Ot E78.5 HYPERLIPIDEMIA, UNSPECIFIED 10/04/2018 NACHO FERRER MD Ot I07.1 RHEUMATIC TRICUSPID INSUFFICIENCY 10/04/2018 NACHO FERRER MD Ot I10 ESSENTIAL (PRIMARY) HYPERTENSION 10/04/2018 NACHO FERRER MD Ot I25.10 ATHSCL HEART DISEASE OF [place] CORONARY 10/04/2018 NACHO FERRER MD Ot I49.5 SICK SINUS SYNDROME 10/05/2018 KINGS FRAUSTO DO Ot E78.00 PURE HYPERCHOLESTEROLEMIA, UNSPECIFIED 10/05/2018 KINGS FRAUSTO DO Ot E78.5 HYPERLIPIDEMIA, UNSPECIFIED 10/05/2018 KINGS FRAUSTO DO Ot E86.0 DEHYDRATION 10/05/2018 LISBET BELTRÁN KINGS Ot I10 ESSENTIAL (PRIMARY) HYPERTENSION 10/05/2018 KINGS FRAUSTO DO Ot I25.10 ATHSCL HEART DISEASE OF [place] CORONARY 10/05/2018 KINGS FRAUSTO DO Ot I25.2 OLD MYOCARDIAL INFARCTION 10/05/2018 KINGS FRAUSTO DO Ot I49.5 SICK SINUS SYNDROME 10/05/2018 KINGS FRAUSTO DO Ot I65.29 OCCLUSION AND STENOSIS OF UNSPECIFIED CA 10/05/2018 KINGS FRAUSTO DO Ot M19.91 PRIMARY OSTEOARTHRITIS, UNSPECIFIED SITE 10/05/2018 KINGS FRAUSTO DO Ot N40.0 BENIGN PROSTATIC HYPERPLASIA WITHOUT LOW 10/05/2018 KINGS FRAUSTO DO Ot R55 SYNCOPE AND COLLAPSE 10/05/2018 KINGS FRAUSTO DO Ot W19.XXXA UNSPECIFIED FALL, INITIAL ENCOUNTER 10/05/2018 KINGS FRAUSTO DO Ot 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 10/05/2018 KINGS FRAUSTO DO Ot Z79.899 OTHER NURSING HOME (CURRENT) DRUG THERAPY 10/05/2018 KINGS FRAUSTO DO Ot Z85.46 PERSONAL HISTORY OF MALIGNANT NEOPLASM O 10/05/2018 KINGS FRAUSTO DO Ot Z86.73 PRSNL HX OF TIA (TIA), AND CEREB INFRC W 10/05/2018 KINGS FRAUSTO DO Ot Z87.891 PERSONAL HISTORY OF NICOTINE DEPENDENCE 10/05/2018 KINGS FRAUSTO DO Ot Z95.0 PRESENCE OF CARDIAC PACEMAKER 10/05/2018 KINGS FRAUSTO DO Ot Z95.1 PRESENCE OF AORTOCORONARY BYPASS GRAFT 10/05/2018 KINGS FRAUSTO DO Ot Z95.5 PRESENCE OF CORONARY ANGIOPLASTY IMPLANT 10/05/2018 KINGS FRAUSTO DO Ot E78.00 PURE HYPERCHOLESTEROLEMIA, UNSPECIFIED 10/05/2018 KINGS FRAUSTO DO Ot E78.5 HYPERLIPIDEMIA, UNSPECIFIED 10/05/2018 KINGS FRAUSTO DO Ot E86.0 DEHYDRATION 10/05/2018 KINGS FRAUSTO DO Ot I10 ESSENTIAL (PRIMARY) HYPERTENSION 10/05/2018 KINGS FRAUSTO DO Ot I25.10 ATHSCL HEART DISEASE OF [place] CORONARY 10/05/2018 KINGS FRAUSTO DO Ot I25.2 OLD MYOCARDIAL INFARCTION 10/05/2018 KINGS FRAUSTO DO Ot I49.5 SICK SINUS SYNDROME 10/05/2018 KINGS FRAUSTO DO Ot I65.29 OCCLUSION AND STENOSIS OF UNSPECIFIED CA 10/05/2018 KINGS FRAUSTO DO Ot M19.91 PRIMARY OSTEOARTHRITIS, UNSPECIFIED SITE 10/05/2018 KINGS FRAUSTO DO Ot N40.0 BENIGN PROSTATIC HYPERPLASIA WITHOUT LOW 10/05/2018 KINGS FRAUSTO DO Ot R55 SYNCOPE AND COLLAPSE 10/05/2018 KINGS FRAUSTO DO Ot W19.XXXA UNSPECIFIED FALL, INITIAL ENCOUNTER 10/05/2018 KINGS FRAUSTO DO Ot 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 10/05/2018 KINGS FRAUSTO DO Ot Z79.899 OTHER NURSING HOME (CURRENT) DRUG THERAPY 10/05/2018 KINGS FRAUSTO DO Ot Z85.46 PERSONAL HISTORY OF MALIGNANT NEOPLASM O 10/05/2018 KINGS FRAUSTO DO Ot Z86.73 PRSNL HX OF TIA (TIA), AND CEREB INFRC W 10/05/2018 KINGS FRAUSTO DO Ot Z87.891 PERSONAL HISTORY OF NICOTINE DEPENDENCE 10/05/2018 KINGS FRAUSTO DO Ot Z95.0 PRESENCE OF CARDIAC PACEMAKER 10/05/2018 KINGS FRAUSTO DO Ot Z95.1 PRESENCE OF AORTOCORONARY BYPASS GRAFT 10/05/2018 KINGS FRAUSTO DO Ot Z95.5 PRESENCE OF CORONARY ANGIOPLASTY IMPLANT 10/10/2018 KINGS FRAUSTO DO Ot E78.00 PURE HYPERCHOLESTEROLEMIA, UNSPECIFIED 10/10/2018 KINGS FRAUSTO DO Ot E78.5 HYPERLIPIDEMIA, UNSPECIFIED 10/10/2018 KINGS FRAUSTO DO Ot E86.0 DEHYDRATION 10/10/2018 KINGS FRAUSTO DO Ot I10 ESSENTIAL (PRIMARY) HYPERTENSION 10/10/2018 KINGS FRAUSTO DO Ot I25.10 ATHSCL HEART DISEASE OF [place] CORONARY 10/10/2018 KINGS FRAUSTO DO Ot I25.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 MYOCARDIAL INFARCTION 10/10/2018 KINGS FRAUSTO DO Ot I49.5 SICK SINUS SYNDROME 10/10/2018 KINGS FRAUSTO DO Ot I65.29 OCCLUSION AND STENOSIS OF UNSPECIFIED CA 10/10/2018 KINGS FRAUSTO DO Ot M19.91 PRIMARY OSTEOARTHRITIS, UNSPECIFIED SITE 10/10/2018 KINGS FRAUSTO DO Ot N40.0 BENIGN PROSTATIC HYPERPLASIA WITHOUT LOW 10/10/2018 KINGS FRAUSTO DO Ot R55 SYNCOPE AND COLLAPSE 10/10/2018 KINGS FRAUSTO DO Ot W19.XXXA UNSPECIFIED FALL, INITIAL ENCOUNTER 10/10/2018 KINGS FRAUSTO DO Ot 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 10/10/2018 KINGS FRAUSTO DO Ot 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 10/10/2018 KINGS FRAUSTO DO Ot Z85.46 PERSONAL HISTORY OF MALIGNANT NEOPLASM O 10/10/2018 KINGS FRAUSTO DO Ot Z86.73 PRSNL HX OF TIA (TIA), AND CEREB INFRC W 10/10/2018 KINGS FRAUSTO DO Ot Z87.891 PERSONAL HISTORY OF NICOTINE DEPENDENCE 10/10/2018 KINGS FRAUSTO DO Ot Z95.0 PRESENCE OF CARDIAC PACEMAKER 10/10/2018 KINGS FRAUSTO DO Ot Z95.1 PRESENCE OF AORTOCORONARY BYPASS GRAFT 10/10/2018 KINGS FRAUSTO DO Ot Z95.5 PRESENCE OF CORONARY ANGIOPLASTY IMPLANT 10/10/2018 KINGS FRAUSTO DO Ot E78.00 PURE HYPERCHOLESTEROLEMIA, UNSPECIFIED 10/10/2018 KINGS FRAUSTO DO Ot E78.5 HYPERLIPIDEMIA, UNSPECIFIED 10/10/2018 KINGS FRAUSTO DO Ot E86.0 DEHYDRATION 10/10/2018 KINGS FRAUSTO DO Ot I10 ESSENTIAL (PRIMARY) HYPERTENSION 10/10/2018 KINGS FRAUSTO DO Ot I25.10 ATHSCL HEART DISEASE OF [place] CORONARY 10/10/2018 KINGS FRAUSTO DO Ot I25.2 OLD MYOCARDIAL INFARCTION 10/10/2018 KINGS FRAUSTO DO Ot I49.5 SICK SINUS SYNDROME 10/10/2018 KINGS FRAUSTO DO Ot I65.29 OCCLUSION AND STENOSIS OF UNSPECIFIED CA 10/10/2018 KINGS FRAUSTO DO Ot M19.91 PRIMARY OSTEOARTHRITIS, UNSPECIFIED SITE 10/10/2018 KINGS FRAUSTO DO Ot N40.0 BENIGN PROSTATIC HYPERPLASIA WITHOUT LOW 10/10/2018 KINGS FRAUSTO DO Ot R55 SYNCOPE AND COLLAPSE 10/10/2018 KINGS FRAUSTO DO Ot W19.XXXA UNSPECIFIED FALL, INITIAL ENCOUNTER 10/10/2018 KINGS FRAUSTO DO Ot 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 10/10/2018 KINGS FRAUSTO DO Ot Z79.899 OTHER NURSING HOME (CURRENT) DRUG THERAPY 10/10/2018 KINGS FRAUSTO DO Ot Z85.46 PERSONAL HISTORY OF MALIGNANT NEOPLASM O 10/10/2018 KINGS FRAUSTO DO Ot Z86.73 PRSNL HX OF TIA (TIA), AND CEREB INFRC W 10/10/2018 KINGS FRAUSTO DO Ot Z87.891 PERSONAL HISTORY OF NICOTINE DEPENDENCE 10/10/2018 KINGS FRAUSTO DO Ot Z95.0 PRESENCE OF CARDIAC PACEMAKER 10/10/2018 KINGS FRAUSTO DO Ot Z95.1 PRESENCE OF AORTOCORONARY BYPASS GRAFT 10/10/2018 KINGS FRAUSTO DO Ot Z95.5 PRESENCE OF CORONARY ANGIOPLASTY IMPLANT 10/29/2018 CARISSA ZUNIGA, NACHO Keane Ot 272.4 HYPERLIPIDEMIA NEC/NOS 10/29/2018 CARISSA ZUNIGA, NACHO Keane Ot 401.9 HYPERTENSION NOS 10/29/2018 CARISSA ZUNIGA, NACHO Keane Ot 414.00 CORON ATHEROSCLER NOS TYPE VESSEL, NATIV 10/29/2018 CARISSA ZUNIGA, NACHO Keane Ot 427.81 SINOATRIAL NODE DYSFUNCT 10/29/2018 NACHO FERRER MD Ot 433.10 CAROTID ARTERY OCCLUSION W O CEREBRAL IN 10/29/2018 PIERRE VAZQUEZ MD Ot 592.0 CALCULUS OF KIDNEY 10/29/2018 PIERRE VAZQUEZ MD Ot 599.70 HEMATURIA, UNSPECIFIED 10/29/2018 PIERRE VAZQUEZ MD Ot 562.10 DIVERTICULOSIS COLON (W/O MENT OF HEMORR 10/29/2018 PIERRE VAZQUEZ MD Ot 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, ACQUIRED 10/29/2018 PIERRE VAZQUEZ MD Ot 599.70 HEMATURIA, UNSPECIFIED 10/29/2018 PIERRE VAZQUEZ MD Ot 788.1 DYSURIA 10/29/2018 PIERRE VAZQUEZ MD Ot 789.00 ABDOMINAL PAIN, UNSPECIFIED SITE 10/29/2018 LADAN PEREZ DO Alfonso Ot 715.36 LOC OSTEOARTH NOS-L/LEG 10/29/2018 ANA BELTRÁN LADAN Hamilton Ot V72.83 EXAM PRE-OPERATIVE NEC 10/29/2018 LADAN PEREZ DO Alfonso Ot V74.8 SCREEN-BACTERIAL DIS NEC 10/29/2018 NACHO FERRER MD Ot R07.9 CHEST PAIN, UNSPECIFIED 10/29/2018 NACHO FERRER MD Ot E78.5 HYPERLIPIDEMIA, UNSPECIFIED 10/29/2018 NACHO FERRER MD Ot I07.1 RHEUMATIC TRICUSPID INSUFFICIENCY 10/29/2018 NACHO FERRER MD Ot I10 ESSENTIAL (PRIMARY) HYPERTENSION 10/29/2018 NACHO FERRER MD Ot I25.10 ATHSCL HEART DISEASE OF [place] CORONARY 10/29/2018 NACHO FERRER MD Ot I49.5 SICK SINUS SYNDROME 10/31/2018 NACHO FERRER MD Ot E78.5 HYPERLIPIDEMIA, UNSPECIFIED 10/31/2018 NACHO FERRER MD Ot I10 ESSENTIAL (PRIMARY) HYPERTENSION 10/31/2018 NACHO FERRER MD Ot I25.10 ATHSCL HEART DISEASE OF [place] CORONARY 10/31/2018 NACHO FERRER MD Ot I49.5 SICK SINUS SYNDROME 10/31/2018 NACHO FERRER MD Ot R06.09 OTHER FORMS OF DYSPNEA 11/13/2018 NACHO FERRER MD Ot E78.5 HYPERLIPIDEMIA, UNSPECIFIED 11/13/2018 NACHO FERRER MD Ot I10 ESSENTIAL (PRIMARY) HYPERTENSION 11/13/2018 NACHO FERRER MD Ot I25.10 ATHSCL HEART DISEASE OF [place] CORONARY 11/13/2018 NACHO FERRER MD Ot I49.5 SICK SINUS SYNDROME 11/13/2018 NACHO FERRER MD Ot I65.23 OCCLUSION AND STENOSIS OF BILATERAL [place] 11/13/2018 NACHO FERRER MD Ot N40.0 BENIGN PROSTATIC HYPERPLASIA WITHOUT LOW 11/13/2018 NACHO FERRER MD Ot R06.00 DYSPNEA, UNSPECIFIED 11/13/2018 NACHO FERRER MD Ot R07.9 CHEST PAIN, UNSPECIFIED 11/13/2018 NACHO FERRER MD Ot 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 11/13/2018 NACHO FERRER MD Ot Z79.899 OTHER NURSING HOME (CURRENT) DRUG THERAPY 11/13/2018 NACHO FERRER MD Ot Z86.73 PRSNL HX OF TIA (TIA), AND CEREB INFRC W 11/13/2018 NACHO FERRER MD Ot Z87.891 PERSONAL HISTORY OF NICOTINE DEPENDENCE 11/17/2018 NACHO FERRER MD Ot E78.5 HYPERLIPIDEMIA, UNSPECIFIED 11/17/2018 NACHO FERRER MD Ot I10 ESSENTIAL (PRIMARY) HYPERTENSION 11/17/2018 NACHO FERRER MD Ot I25.10 ATHSCL HEART DISEASE OF [place] CORONARY 11/17/2018 NACHO FERRER MD Ot I49.5 SICK SINUS SYNDROME 11/17/2018 NACHO FERRER MD Ot I65.23 OCCLUSION AND STENOSIS OF BILATERAL [place] 11/17/2018 NACHO FERRER MD Ot N40.0 BENIGN PROSTATIC HYPERPLASIA WITHOUT LOW 11/17/2018 NACHO FERRER MD Ot R06.00 DYSPNEA, UNSPECIFIED 11/17/2018 NACHO FERRER MD Ot R07.9 CHEST PAIN, UNSPECIFIED 11/17/2018 NACHO FERRER MD Ot Z79.82 NURSING HOME (CURRENT) USE OF ASPIRIN 11/17/2018 NACHO FERRER MD Ot Z79.899 OTHER NURSING HOME (CURRENT) DRUG THERAPY 11/17/2018 NACHO FERRER MD Ot Z86.73 PRSNL HX OF TIA (TIA), AND CEREB INFRC W 11/17/2018 NACHO FERRER MD Ot Z87.891 PERSONAL HISTORY OF NICOTINE DEPENDENCE 11/18/2018 NACHO FERRER MD Ot E78.5 HYPERLIPIDEMIA, UNSPECIFIED 11/18/2018 NACHO FERRER MD Ot I10 ESSENTIAL (PRIMARY) HYPERTENSION 11/18/2018 NACHO FERRER MD Ot I25.10 ATHSCL HEART DISEASE OF [place] CORONARY 11/18/2018 NACHO FERRER MD Ot I49.5 SICK SINUS SYNDROME 11/18/2018 NACHO FERRER MD Ot R06.09 OTHER FORMS OF DYSPNEA 11/19/2018 NACHO FERRER MD Ot E78.5 HYPERLIPIDEMIA, UNSPECIFIED 11/19/2018 NACHO FERRER MD Ot I10 ESSENTIAL (PRIMARY) HYPERTENSION 11/19/2018 NACHO FERRER MD, Ot I25.10 ATHSCL HEART DISEASE OF [place] CORONARY 11/19/2018 NACHO FERRER MD Ot I49.5 SICK SINUS SYNDROME 11/19/2018 NACHO FERRER MD Ot I65.23 OCCLUSION AND STENOSIS OF [place]ILATERAL [place] 11/19/2018 NACHO FERRER MD Ot N40.0 BENIGN PROSTATIC HYPERPLASIA WITHOUT LOW 11/19/2018 NACHO FERRER MD Ot R06.00 DYSPNEA, UNSPECIFIED 11/19/2018 NACHO FERRER MD Ot R07.9 CHEST PAIN, UNSPECIFIED 11/19/2018 NACHO FERRER MD, Ot Z79.82 NURSING HOME (CURRENT) USE OF ASPIRIN 11/19/2018 NACHO FERRER MD, Ot 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 11/19/2018 NACHO FERRER MD, Ot Z86.73 PRSNL HX OF TIA (TIA), AND CEREB INFRC W 11/19/2018 NACHO FERRER MD, Ot Z87.891 PERSONAL HISTORY OF NICOTINE DEPENDENCE 11/27/2018 NACHO FERRER MD, Ot E78.5 HYPERLIPIDEMIA, UNSPECIFIED 11/27/2018 NACHO FERRER MD Ot I10 ESSENTIAL (PRIMARY) HYPERTENSION 11/27/2018 NACHO FERRER MD, Ot I25.10 ATHSCL HEART DISEASE OF [place] CORONARY 11/27/2018 NACHO FERRER MD, Ot I49.5 SICK SINUS SYNDROME 11/27/2018 NACHO FERRER MD, Ot R06.09 OTHER FORMS OF DYSPNEA Procedures Code Description Performed By Performed On [id number] IN[facility]ODUCE [facility] 05/18/2018 Results Test Result Range Methicillin resistant Staphylococcus aureus (MRSA) screening culture - 02/15/16 08:50 Methicillin resistant Staphylococcus aureus (MRSA) screening [...] Automated erythrocyte mean corpuscular hemoglobin concentration measurement (mass/volume) 34 g/dL 32-36 Automated erythrocyte distribution width ratio 13.9 % 10.0- 14.5 Automated blood platelet count (count/volume) 214 10*3/uL 130-400 Automated blood platelet mean volume measurement 9.5 [foz_us] 7.4-10.4 Complete urinalysis with reflex to culture - 08/24/16 12:38 Urine color determination YELLOW NRG Urine clarity determination CLEAR NRG Urine pH measurement by test strip 5 5-9 Specific gravity of urine by test strip 1.015 1.016-1.022 Urine protein assay by test strip, semi-quantitative [...] sediment leukocyte count by microscopy (number/high power field) [HPF] NRG Bacteria detection in urine sediment [...] Serum or plasma aspartate aminotransferase measurement (enzymatic activity/volume) 19 U/L 5-34 Serum or plasma alanine aminotransferase measurement (enzymatic activity/volume) 18 U/L 0-55 Serum or plasma protein measurement (mass/volume) 6.9 g/dL 6.4-8.2 Serum or plasma albumin measurement (mass/volume) 4.1 g/dL 3.2-4.5 Lipid 1996 panel - 08/24/16 12:38 Serum or plasma triglyceride measurement (mass/volume) 130 mg/dL <150 Serum or plasma cholesterol measurement (mass/volume) 193 mg/dL < 200 Serum or plasma cholesterol in HDL measurement (mass/volume) 45 mg/dL 40-60 Cholesterol in LDL [mass/volume] in serum or plasma by direct assay 135 mg/dL 1-129 Serum or plasma cholesterol in VLDL measurement (mass/volume) 26 mg/dL 5-40 Methicillin resistant Staphylococcus aureus (MRSA) screening culture - 08/24/16 12:38 Methicillin resistant Staphylococcus aureus (MRSA) screening [...] Automated erythrocyte mean corpuscular hemoglobin concentration measurement (mass/volume) 33 g/dL 32-36 Automated erythrocyte distribution width ratio 14.0 % 10.0- 14.5 Automated blood platelet count (count/volume) 195 10*3/uL [...] Blood monocytes automated count (number/volume) 0.9 10*3 0.0- 1.0 Automated eosinophil count 0.3 10*3/uL 0.0-0.3 Automated [...] Serum or plasma aspartate aminotransferase measurement (enzymatic activity/volume) 16 U/L 5-34 Serum or plasma alanine aminotransferase measurement (enzymatic activity/volume) 16 U/L 0-55 Serum or plasma protein measurement (mass/volume) 7.0 g/dL 6.4-8.2 Serum or plasma albumin measurement (mass/volume) 4.2 g/dL 3.2-4.5 CALCIUM CORRECTED 9.1 mg/dL 8.5-10.1 Serum or plasma troponin i.cardiac measurement (mass/volume) - 05/18/18 15:56 Serum or plasma troponin i.cardiac measurement (mass/volume) < ng/mL <0.30 PT panel in platelet poor plasma [...] measurement in platelet poor plasma (mass/volume) - 05/18/18 15:56 Fibrin D-dimer FEU measurement in platelet poor plasma (mass/volume) 0.62 ug/mL 0.00-0.49 Capillary blood glucose measurement by glucometer (mass/volume) - 05/18/18 16:06 Capillary blood glucose measurement by glucometer (mass/volume) 104 mg/dL 70-110 Complete urinalysis with reflex to culture - 05/18/18 16:14 Urine color determination YELLOW NRG Urine clarity determination CLEAR NRG Urine pH measurement by test strip 6 5-9 Specific gravity of urine by test strip 1.020 1.016-1.022 Urine protein assay by test strip, semi-quantitative [...] sediment leukocyte count by microscopy (number/high power field) [HPF] NRG Bacteria detection in urine sediment by light microscopy FEW NRG Squamous epithelial cells detection in urine sediment by light microscopy 0-2 NRG Crystals detection in urine sediment by light microscopy NONE NRG Casts detection in urine sediment by light microscopy NONE NRG Mucus detection in urine sediment by light microscopy SMALL NRG Complete urinalysis with reflex to culture YES NRG Bacterial urine culture - 05/18/18 16:14 Bacterial urine culture NG NRG Blood lactic acid measurement (moles/volume) - 05/18/18 17:50 Blood lactic acid measurement (moles/volume) 1.26 mmol/L 0.50- 2.00 Bacterial blood culture - 05/18/18 17:50 QUANTITY OF GROWTH . NRG Bacterial blood culture SEE COMMEN NRG Bacterial blood culture - 05/18/18 18:30 Bacterial blood culture NG NRG Complete blood count (CBC) with automated white blood cell (WBC) differential - 05/19/18 03:25 Blood leukocytes automated count (number/volume) 7.9 10*3/uL 4.3-11.0 Blood erythrocytes automated count (number/volume) 3.85 10*6/uL 4.35-5.85 Venous blood hemoglobin measurement (mass/volume) 11.6 g/dL 13.3-17.7 Blood hematocrit (volume fraction) 34 % 40-54 Automated erythrocyte mean corpuscular volume 89 [foz_us] 80-99 Automated erythrocyte mean corpuscular hemoglobin (mass per erythrocyte) 30 pg 25-34 Automated erythrocyte mean corpuscular hemoglobin concentration measurement (mass/volume) 34 g/dL 32-36 Automated erythrocyte distribution width ratio 14.2 % 10.0- 14.5 Automated blood platelet count (count/volume) 168 10*3/uL 130-400 Automated blood platelet mean volume measurement 9.8 [foz_us] 7.4-10.4 Automated blood neutrophils/100 leukocytes 75 % 42-75 Automated blood lymphocytes/100 leukocytes 12 % 12-44 Blood monocytes/100 leukocytes 10 % 0-12 Automated blood eosinophils/100 leukocytes 2 % 0-10 Automated blood basophils/100 leukocytes 0 % 0-10 Blood neutrophils automated count (number/volume) 5.9 10*3 1.8-7.8 Blood lymphocytes automated count (number/volume) 1.0 10*3 1.0-4.0 Blood monocytes automated count (number/volume) 0.8 10*3 0.0- 1.0 Automated eosinophil count 0.2 10*3/uL 0.0-0.3 Automated blood basophil count (count/volume) 0.0 10*3/uL 0.0-0.1 Comprehensive metabolic panel - 05/19/18 03:25 Serum or plasma sodium measurement (moles/volume) 138 mmol/L 135-145 Serum or plasma potassium measurement (moles/volume) 3.4 mmol/L 3.6-5.0 Serum or plasma chloride measurement (moles/volume) 106 mmol/L 98-107 Carbon dioxide 22 mmol/L 21-32 Serum or plasma anion gap determination (moles/volume) 10 mmol/L 5-14 Serum or plasma urea nitrogen measurement (mass/volume) 16 mg/dL 7-18 Serum or plasma creatinine measurement (mass/volume) 0.92 mg/dL 0.60-1.30 Serum or plasma urea nitrogen/creatinine mass ratio 17 NRG Serum or plasma creatinine measurement with calculation of estimated glomerular filtration rate > NRG Serum or plasma glucose measurement (mass/volume) 100 mg/dL 70-105 Serum or plasma calcium measurement (mass/volume) 8.2 mg/dL 8.5-10.1 Serum or plasma total bilirubin measurement (mass/volume) 1.1 mg/dL 0.1-1.0 Serum or plasma alkaline phosphatase measurement (enzymatic activity/volume) 57 U/L 40-136 Serum or plasma aspartate aminotransferase measurement (enzymatic activity/volume) 13 U/L 5-34 Serum or plasma alanine aminotransferase measurement (enzymatic activity/volume) 13 U/L 0-55 Serum or plasma protein measurement (mass/volume) 5.6 g/dL 6.4-8.2 Serum or plasma albumin measurement (mass/volume) 3.4 g/dL 3.2-4.5 CALCIUM CORRECTED 8.7 mg/dL 8.5-10.1 Serum or plasma phosphate measurement (mass/volume) - 05/19/18 03:25 Serum or plasma phosphate measurement (mass/volume) 2.9 mg/dL 2.3-4.7 Magnesium - 05/19/18 03:25 Magnesium 1.6 mg/dL 1.8-2.4 Complete blood count (CBC) with automated white blood cell (WBC) differential - 05/20/18 04:55 Blood leukocytes automated count (number/volume) 6.4 10*3/uL 4.3-11.0 Blood erythrocytes automated count (number/volume) 4.01 10*6/uL 4.35-5.85 Venous blood hemoglobin measurement (mass/volume) 11.9 g/dL 13.3-17.7 Blood hematocrit (volume fraction) 36 % 40-54 Automated erythrocyte mean corpuscular volume 90 [foz_us] 80-99 Automated erythrocyte mean corpuscular hemoglobin (mass per erythrocyte) 30 pg 25-34 Automated erythrocyte mean corpuscular hemoglobin concentration measurement (mass/volume) 33 g/dL 32-36 Automated erythrocyte distribution width ratio 14.2 % 10.0- 14.5 Automated blood platelet count (count/volume) 160 10*3/uL 130-400 Automated blood platelet mean volume measurement 9.8 [foz_us] 7.4-10.4 Automated blood neutrophils/100 leukocytes 64 % 42-75 Automated blood lymphocytes/100 leukocytes 14 % 12-44 Blood monocytes/100 leukocytes 15 % 0-12 Automated blood eosinophils/100 leukocytes 6 % 0-10 Automated blood basophils/100 leukocytes 0 % 0-10 Blood neutrophils automated count (number/volume) 4.1 10*3 1.8-7.8 Blood lymphocytes automated count (number/volume) 0.9 10*3 1.0-4.0 Blood monocytes automated count (number/volume) 1.0 10*3 0.0- 1.0 Automated eosinophil count 0.4 10*3/uL 0.0-0.3 Automated blood basophil count (count/volume) 0.0 10*3/uL 0.0-0.1 Whole blood basic metabolic panel - 05/20/18 04:55 Serum or plasma sodium measurement (moles/volume) 140 mmol/L 135-145 Serum or plasma potassium measurement (moles/volume) 3.6 mmol/L 3.6-5.0 Serum or plasma chloride measurement (moles/volume) 108 mmol/L 98-107 Carbon dioxide 22 mmol/L 21-32 Serum or plasma anion gap determination (moles/volume) 10 mmol/L 5-14 Serum or plasma urea nitrogen measurement (mass/volume) 12 mg/dL 7-18 Serum or plasma creatinine measurement (mass/volume) 0.91 mg/dL 0.60-1.30 Serum or plasma urea nitrogen/creatinine mass ratio 13 NRG Serum or plasma creatinine measurement with calculation of estimated glomerular filtration rate > NRG Serum or plasma glucose measurement (mass/volume) 96 mg/dL 70-105 Serum or plasma calcium measurement (mass/volume) 8.5 mg/dL 8.5-10.1 Serum or plasma phosphate measurement (mass/volume) - 05/20/18 04:55 Serum or plasma phosphate measurement (mass/volume) 2.7 mg/dL 2.3-4.7 Magnesium - 05/20/18 04:55 Magnesium 1.8 mg/dL 1.8-2.4 Lipid 1996 panel - 05/20/18 04:55 Serum or plasma triglyceride measurement (mass/volume) 84 mg/dL <150 Serum or plasma cholesterol measurement (mass/volume) 140 mg/dL < 200 Serum or plasma cholesterol in HDL measurement (mass/volume) 42 mg/dL 40-60 Cholesterol in LDL [mass/volume] in serum or plasma by direct assay 94 mg/dL 1-129 Serum or plasma cholesterol in VLDL measurement (mass/volume) 17 mg/dL 5-40 Capillary blood glucose measurement by glucometer (mass/volume) - 10/04/18 17:29 Capillary blood glucose measurement by glucometer (mass/volume) 120 mg/dL 70-110 Complete blood count (CBC) with automated white blood cell (WBC) differential - 10/04/18 17:31 Blood leukocytes automated count (number/volume) 6.8 10*3/uL 4.3-11.0 Blood erythrocytes automated count (number/volume) 4.26 10*6/uL 4.35-5.85 Venous blood hemoglobin measurement (mass/volume) 12.8 g/dL 13.3-17.7 Blood hematocrit (volume fraction) 38 % 40-54 Automated erythrocyte mean corpuscular volume 89 [foz_us] 80-99 Automated erythrocyte mean corpuscular hemoglobin (mass per erythrocyte) 30 pg 25-34 Automated erythrocyte mean corpuscular hemoglobin concentration measurement (mass/volume) 34 g/dL 32-36 Automated erythrocyte distribution width ratio 14.3 % 10.0- 14.5 Automated blood platelet count (count/volume) 235 10*3/uL 130-400 Automated blood platelet mean volume measurement 9.1 [foz_us] 7.4-10.4 Automated blood neutrophils/100 leukocytes 66 % 42-75 Automated blood lymphocytes/100 leukocytes 18 % 12-44 Blood monocytes/100 leukocytes 13 % 0-12 Automated blood eosinophils/100 leukocytes 3 % 0-10 Automated blood basophils/100 leukocytes 0 % 0-10 Blood neutrophils automated count (number/volume) 4.5 10*3 1.8-7.8 Blood lymphocytes automated count (number/volume) 1.2 10*3 1.0-4.0 Blood monocytes automated count (number/volume) 0.9 10*3 0.0- 1.0 Automated eosinophil count 0.2 10*3/uL 0.0-0.3 Automated blood basophil count (count/volume) 0.0 10*3/uL 0.0-0.1 Comprehensive metabolic panel - 10/04/18 17:31 Serum or plasma sodium measurement (moles/volume) 136 mmol/L 135-145 Serum or plasma potassium measurement (moles/volume) 4.2 mmol/L 3.6-5.0 Serum or plasma chloride measurement (moles/volume) 105 mmol/L 98-107 Carbon dioxide 20 mmol/L 21-32 Serum or plasma anion gap determination (moles/volume) 11 mmol/L 5-14 Serum or plasma urea nitrogen measurement (mass/volume) 20 mg/dL 7-18 Serum or plasma creatinine measurement (mass/volume) 1.26 mg/dL 0.60-1.30 Serum or plasma urea nitrogen/creatinine mass ratio 16 NRG Serum or plasma creatinine measurement with calculation of estimated glomerular filtration rate 55 NRG Serum or plasma glucose measurement (mass/volume) 122 mg/dL 70-105 Serum or plasma calcium measurement (mass/volume) 9.1 mg/dL 8.5-10.1 Serum or plasma total bilirubin measurement (mass/volume) 1.2 mg/dL 0.1-1.0 Serum or plasma alkaline phosphatase measurement (enzymatic activity/volume) 56 U/L 40-136 Serum or plasma aspartate aminotransferase measurement (enzymatic activity/volume) 16 U/L 5-34 Serum or plasma alanine aminotransferase measurement (enzymatic activity/volume) 19 U/L 0-55 Serum or plasma protein measurement (mass/volume) 6.3 g/dL 6.4-8.2 Serum or plasma albumin measurement (mass/volume) 3.9 g/dL 3.2-4.5 CALCIUM CORRECTED 9.2 mg/dL 8.5-10.1 PT panel in platelet poor plasma by coagulation assay - 10/04/18 17:31 Prothrombin time (PT) in platelet poor plasma by coagulation assay 14.3 s 12.2-14.7 INR in platelet poor plasma or blood by coagulation assay 1.1 0.8-1.4 Activated partial thromboplastin time (aPTT) in platelet poor plasma bycoagulation assay - 10/04/18 17:31 Activated partial thromboplastin time (aPTT) in platelet poor plasma bycoagulation assay 31 s 24-35 Fibrin D-dimer FEU measurement in platelet poor plasma (mass/volume) - 10/04/18 17:31 Fibrin D-dimer FEU measurement in platelet poor plasma (mass/volume) 0.67 ug/mL 0.00-0.49 Serum or plasma troponin i.cardiac measurement (mass/volume) - 10/04/18 17:31 Serum or plasma troponin i.cardiac measurement (mass/volume) < ng/mL <0.028 Serum or plasma ethanol measurement (mass/volume) - 10/04/18 17:31 Serum or plasma ethanol measurement (mass/volume) < mg/dL <10 Complete urinalysis with reflex to culture - 10/04/18 18:08 Urine color determination YELLOW NRG Urine clarity determination CLEAR NRG Urine pH measurement by test strip 5 5-9 Specific gravity of urine by test strip 1.020 1.016-1.022 Urine protein assay by test strip, semi-quantitative 1+ NEGATIVE Urine glucose detection by automated test strip NEGATIVE NEGATIVE Erythrocytes detection in urine sediment by light microscopy NEGATIVE NEGATIVE Urine ketones detection by automated test strip NEGATIVE NEGATIVE Urine nitrite detection by test strip NEGATIVE NEGATIVE Urine total bilirubin detection by test strip NEGATIVE NEGATIVE Urine urobilinogen measurement by automated test strip (mass/volume) 1 mg/dL NORMAL Urine leukocyte esterase detection by dipstick 1+ NEGATIVE Automated urine sediment erythrocyte count by microscopy (number/high power field) NONE NRG Automated urine sediment leukocyte count by microscopy (number/high power field) [HPF] NRG Bacteria detection in urine sediment by light microscopy NEGATIVE NRG Squamous epithelial cells detection in urine sediment by light microscopy RARE NRG Crystals detection in urine sediment by light microscopy NONE NRG Casts detection in urine sediment by light microscopy NONE NRG Mucus detection in urine sediment by light microscopy NEGATIVE NRG Complete urinalysis with reflex to culture NO NRG Methicillin resistant Staphylococcus aureus (MRSA) screening culture - 10/04/18 19:40 Methicillin resistant Staphylococcus aureus (MRSA) screening culture NEG NRG Capillary blood glucose measurement by glucometer (mass/volume) - 10/04/18 20:16 Capillary blood glucose measurement by glucometer (mass/volume) 117 mg/dL 70-110 Complete blood count (CBC) with automated white blood cell (WBC) differential - 10/05/18 00:45 Blood leukocytes automated count (number/volume) 7.3 10*3/uL 4.3-11.0 Blood erythrocytes automated count (number/volume) 3.88 10*6/uL 4.35-5.85 Venous blood hemoglobin measurement (mass/volume) 11.7 g/dL 13.3-17.7 Blood hematocrit (volume fraction) 35 % 40-54 Automated erythrocyte mean corpuscular volume 90 [foz_us] 80-99 Automated erythrocyte mean corpuscular hemoglobin (mass per erythrocyte) 30 pg 25-34 Automated erythrocyte mean corpuscular hemoglobin concentration measurement (mass/volume) 34 g/dL 32-36 Automated erythrocyte distribution width ratio 14.0 % 10.0- 14.5 Automated blood platelet count (count/volume) 188 10*3/uL 130-400 Automated blood platelet mean volume measurement 8.6 [foz_us] 7.4-10.4 Automated blood neutrophils/100 leukocytes 70 % 42-75 Automated blood lymphocytes/100 leukocytes 15 % 12-44 Blood monocytes/100 leukocytes 13 % 0-12 Automated blood eosinophils/100 leukocytes 2 % 0-10 Automated blood basophils/100 leukocytes 0 % 0-10 Blood neutrophils automated count (number/volume) 5.1 10*3 1.8-7.8 Blood lymphocytes automated count (number/volume) 1.1 10*3 1.0-4.0 Blood monocytes automated count (number/volume) 0.9 10*3 0.0- 1.0 Automated eosinophil count 0.1 10*3/uL 0.0-0.3 Automated blood basophil count (count/volume) 0.0 10*3/uL 0.0-0.1 Whole blood basic metabolic panel - 10/05/18 00:45 Serum or plasma sodium measurement (moles/volume) 138 mmol/L 135-145 Serum or plasma potassium measurement (moles/volume) 3.8 mmol/L 3.6-5.0 Serum or plasma chloride measurement (moles/volume) 105 mmol/L 98-107 Carbon dioxide 22 mmol/L 21-32 Serum or plasma anion gap determination (moles/volume) 11 mmol/L 5-14 Serum or plasma urea nitrogen measurement (mass/volume) 19 mg/dL 7-18 Serum or plasma creatinine measurement (mass/volume) 1.13 mg/dL 0.60-1.30 Serum or plasma urea nitrogen/creatinine mass ratio 17 NRG Serum or plasma creatinine measurement with calculation of estimated glomerular filtration rate > NRG Serum or plasma glucose measurement (mass/volume) 118 mg/dL 70-105 Serum or plasma calcium measurement (mass/volume) 9.0 mg/dL 8.5-10.1 Serum or plasma phosphate measurement (mass/volume) - 10/05/18 00:45 Serum or plasma phosphate measurement (mass/volume) 3.3 mg/dL 2.3-4.7 Magnesium - 10/05/18 00:45 Magnesium 1.9 mg/dL 1.8-2.4 Serum or plasma troponin i.cardiac measurement (mass/volume) - 10/05/18 00:45 Serum or plasma troponin i.cardiac measurement (mass/volume) < ng/mL <0.028 Lipid 1996 panel - 10/05/18 00:45 Serum or plasma triglyceride measurement (mass/volume) 80 mg/dL <150 Serum or plasma cholesterol measurement (mass/volume) 134 mg/dL < 200 Serum or plasma cholesterol in HDL measurement (mass/volume) 39 mg/dL 40-60 Cholesterol in LDL [mass/volume] in serum or plasma by direct assay 80 mg/dL 1-129 Serum or plasma cholesterol in VLDL measurement (mass/volume) 16 mg/dL 5-40 Serum or plasma troponin i.cardiac measurement (mass/volume) - 10/05/18 06:03 Serum or plasma troponin i.cardiac measurement (mass/volume) < ng/mL <0.028 Lipid 1996 panel - 10/05/18 06:03 Serum or plasma triglyceride measurement (mass/volume) 102 mg/dL <150 Serum or plasma cholesterol measurement (mass/volume) 128 mg/dL < 200 Serum or plasma cholesterol in HDL measurement (mass/volume) 35 mg/dL 40-60 Cholesterol in LDL [mass/volume] in serum or plasma by direct assay 76 mg/dL 1-129 Serum or plasma cholesterol in VLDL measurement (mass/volume) 20 mg/dL 5-40 Automated blood complete blood count (hemogram) panel - 11/12/18 08:15 Blood leukocytes automated count (number/volume) 6.0 10*3/uL 4.3-11.0 Blood erythrocytes automated count (number/volume) 4.53 10*6/uL 4.35-5.85 Venous blood hemoglobin measurement (mass/volume) 13.7 g/dL 13.3-17.7 Blood hematocrit (volume fraction) 40 % 40-54 Automated erythrocyte mean corpuscular volume 89 [foz_us] 80-99 Automated erythrocyte mean corpuscular hemoglobin (mass per erythrocyte) 30 pg 25-34 Automated erythrocyte mean corpuscular hemoglobin concentration measurement (mass/volume) 34 g/dL 32-36 Automated erythrocyte distribution width ratio 13.8 % 10.0- 14.5 Automated blood platelet count (count/volume) 203 10*3/uL 130-400 Automated blood platelet mean volume measurement 9.2 [foz_us] 7.4-10.4 PT panel in platelet poor plasma by coagulation assay - 11/12/18 08:15 Prothrombin time (PT) in platelet poor plasma by coagulation assay 13.6 s 12.2-14.7 INR in platelet poor plasma or blood by coagulation assay 1.0 0.8-1.4 Activated partial thromboplastin time (aPTT) in platelet poor plasma bycoagulation assay - 11/12/18 08:15 Activated partial thromboplastin time (aPTT) in platelet poor plasma bycoagulation assay 31 s 24-35 Comprehensive metabolic panel - 11/12/18 08:15 Serum or plasma sodium measurement (moles/volume) 136 mmol/L 135-145 Serum or plasma potassium measurement (moles/volume) 4.2 mmol/L 3.6-5.0 Serum or plasma chloride measurement (moles/volume) 103 mmol/L 98-107 Carbon dioxide 25 mmol/L 21-32 Serum or plasma anion gap determination (moles/volume) 8 mmol/L 5-14 Serum or plasma urea nitrogen measurement (mass/volume) 24 mg/dL 7-18 Serum or plasma creatinine measurement (mass/volume) 1.35 mg/dL 0.60-1.30 Serum or plasma urea nitrogen/creatinine mass ratio 18 NRG Serum or plasma creatinine measurement with calculation of estimated glomerular filtration rate 51 NRG Serum or plasma glucose measurement (mass/volume) 104 mg/dL 70-105 Serum or plasma calcium measurement (mass/volume) 9.3 mg/dL 8.5-10.1 Serum or plasma total bilirubin measurement (mass/volume) 0.7 mg/dL 0.1-1.0 Serum or plasma alkaline phosphatase measurement (enzymatic activity/volume) 71 U/L 40-136 Serum or plasma aspartate aminotransferase measurement (enzymatic activity/volume) 15 U/L 5-34 Serum or plasma alanine aminotransferase measurement (enzymatic activity/volume) 16 U/L 0-55 Serum or plasma protein measurement (mass/volume) 7.0 g/dL 6.4-8.2 Serum or plasma albumin measurement (mass/volume) 4.2 g/dL 3.2-4.5 CALCIUM CORRECTED 9.1 mg/dL 8.5-10.1 Lipid 1996 panel - 11/12/18 08:15 Serum or plasma triglyceride measurement (mass/volume) 155 mg/dL <150 Serum or plasma cholesterol measurement (mass/volume) 171 mg/dL < 200 Serum or plasma cholesterol in HDL measurement (mass/volume) 44 mg/dL 40-60 Cholesterol in LDL [mass/volume] in serum or plasma by direct assay 109 mg/dL 1-129 Serum or plasma cholesterol in VLDL measurement (mass/volume) 31 mg/dL 5-40 Methicillin resistant Staphylococcus aureus (MRSA) screening culture - 11/12/18 08:15 Methicillin resistant Staphylococcus aureus (MRSA) screening culture NEG NRG Automated blood complete blood count (hemogram) panel - 11/13/18 03:30 Blood leukocytes automated count (number/volume) 6.1 10*3/uL 4.3-11.0 Blood erythrocytes automated count (number/volume) 4.08 10*6/uL 4.35-5.85 Venous blood hemoglobin measurement (mass/volume) 12.3 g/dL 13.3-17.7 Blood hematocrit (volume fraction) 36 % 40-54 Automated erythrocyte mean corpuscular volume 89 [foz_us] 80-99 Automated erythrocyte mean corpuscular hemoglobin (mass per erythrocyte) 30 pg 25-34 Automated erythrocyte mean corpuscular hemoglobin concentration measurement (mass/volume) 34 g/dL 32-36 Automated erythrocyte distribution width ratio 13.9 % 10.0- 14.5 Automated blood platelet count (count/volume) 184 10*3/uL 130-400 Automated blood platelet mean volume measurement 9.2 [foz_us] 7.4-10.4 Whole blood basic metabolic panel - 11/13/18 03:30 Serum or plasma sodium measurement (moles/volume) 138 mmol/L 135-145 Serum or plasma potassium measurement (moles/volume) 4.5 mmol/L 3.6-5.0 Serum or plasma chloride measurement (moles/volume) 106 mmol/L 98-107 Carbon dioxide 22 mmol/L 21-32 Serum or plasma anion gap determination (moles/volume) 10 mmol/L 5-14 Serum or plasma urea nitrogen measurement (mass/volume) 17 mg/dL 7-18 Serum or plasma creatinine measurement (mass/volume) 1.11 mg/dL 0.60-1.30 Serum or plasma urea nitrogen/creatinine mass ratio 15 NRG Serum or plasma creatinine measurement with calculation of estimated glomerular filtration rate > NRG Serum or plasma glucose measurement (mass/volume) 97 mg/dL 70-105 Serum or plasma calcium measurement (mass/volume) 8.9 mg/dL 8.5-10.1 Encounters ACCT No. Visit Date/Time Discharge Status Pt. Type Provider Facility Loc./Unit Complaint [id number] 11/12/2018 07:45:00 11/13/2018 08:40:00 DIS Outpatient NACHO FERRER MD [facility] CATH ABN STRESS [id number] 10/29/2018 07:18:00 10/29/2018 23:59:59 CLS Outpatient NACHO FERRER MD [facility] CARD CAD,HTN,CAROTID ARTERY STENOSIS [id number] 10/04/2018 19:35:00 10/05/2018 11:51:00 DIS Inpatient KINGS FRAUSTO DO [facility] ICU CVA VS DHYDRATION-VS TIA [id number] 05/18/2018 18:24:00 05/20/2018 12:00:00 DIS Inpatient BEVERLEY YOUNGER MD [facility] 4TH STROKE (ISCHEMIC),UTI [id number] 11/28/2017 09:20:00 11/28/2017 23:59:59 CLS Outpatient NACHO FERRER MD [facility] CARD CAD,CAROTID ARTERY STENOSIS [id number] 08/24/2016 11:54:00 08/24/2016 18:50:00 DIS Outpatient NACHO FERRER MD [facility] CATH CP,CAD,HTN,HLP [id number] 02/15/2016 08:13:00 02/15/2016 14:00:00 DIS Outpatient NACHO FERRER MD [facility] CATH SSS,HTN,HLP [id number] 10/13/2015 11:20:00 10/13/2015 16:40:00 DIS Outpatient MAMTA MOHAN MD [facility] SDC SKIN LESION [id number] 10/11/2015 10:15:00 10/11/2015 10:36:00 DIS Outpatient MAMTA MOHAN MD [facility] PREOP SKIN LESIONS [id number] 10/04/2015 16:30:00 10/05/2015 09:23:00 DIS Inpatient BEVERLEY YOUNGER MD [facility] ICU CHEST PAIN [id number] 05/02/2015 06:49:00 05/02/2015 23:59:59 CLS Outpatient NACHO FERRER MD [facility] CARD CHEST PAIN,UNSTABLE ANGINA [id number] 04/29/2015 22:04:00 04/30/2015 08:39:00 DIS Inpatient NACHO FERRER MD [facility] CSD UNSTABLE ANGINA [id number] 03/29/2015 10:36:00 03/29/2015 13:09:00 DIS Emergency COLETTE STOLL DO [facility] ER BLOOD IN URINE [id number] 11/08/2014 02:40:00 11/08/2014 10:31:00 DIS Outpatient NACHO FERRER MD [facility] CATH CP [id number] 07/27/2014 11:25:00 07/27/2014 23:59:59 CLS Outpatient LADAN PEREZ DO [facility] SDC LEFT DJD [id number] 07/20/2014 10:00:00 07/20/2014 23:59:59 CLS Outpatient LADAN PEREZ DO [facility] PREOP LEFT DJD [id number] 09/28/2013 08:33:00 09/28/2013 23:59:59 CLS Outpatient NACHO FERRER MD [facility] RAD CAD,HLP,HTN [id number] 09/17/2013 07:40:00 09/17/2013 23:59:59 CLS Outpatient PIERRE VAZQUEZ MD [facility] RAD ABDOMINAL PAIN, HEMATURIA [id number] 09/15/2013 10:58:00 09/15/2013 23:59:59 CLS Outpatient PIERRE VAZQUEZ MD [facility] RAD HEMATEMESIS [id number] 01/02/2013 07:29:00 01/02/2013 23:59:59 CLS Outpatient DEENA PULIDO MD [facility] SDC SCREENING [id number] 12/31/2012 08:13:00 12/31/2012 23:59:59 CLS Outpatient DEENA PULIDO MD [facility] PREOP SCREENING [id number] 12/29/2012 17:21:00 12/30/2012 18:45:00 DIS Inpatient PIERRE VAZQUEZ MD [facility] 4TH DIZZINESS [id number] 12/22/2018 18:37:00 ACT Emergency DODEI COLETTE BELTRÁN Rajiv [facility] ER CP/MICHAEL ARM PAIN/FEELS WEIRD [id number] 03/25/2012 00:00:00 Document Registration [id number] 03/06/2012 14:12:00 Document Registration [id number] 02/05/2012 05:48:00 Document Registration [id number] 02/01/2012 10:21:00 Document Registration [id number] 12/07/2011 08:41:00 Document Registration [id number] 12/04/2011 13:39:00 Document Registration [id number] 02/19/2011 10:30:00 Document Registration [id number] 09/06/2010 10:34:00 Document Registration [id number] 12/15/2009 17:40:00 Document Registration
[2018-12-22 19:04] LABS: INR 1.1 (0.8-1.4); PROTHROMBIN TIME PATIENT 14.2 SEC (12.2-14.7)
[2018-12-22] MEDS ORDERED: ACET325C5 PO (19:15)
[2018-12-22] MEDS ORDERED: ACDPT (19:15)
--- NOTE | 2018-12-22 19:17 | Diagnostic Imaging Report ---
INDICATION: Coronary artery disease, chest pain, and cardiac pacemaker. COMPARISON: 11/12/2018. FINDINGS: Single view of the chest demonstrates cardiac enlargement without overt pulmonary edema. There is no focal infiltrate, effusion, or pneumothorax. Sternal wires are midline. Pacemaker appears stable. IMPRESSION: Stable cardiac enlargement without pulmonary edema or infiltrate. Dictated by: Dictated on workstation # [id number]
[2018-12-22 19:18] LABS: ALANINE AMINOTRANSFERASE 16 U/L (0-55); ALBUMIN 3.9 GM/DL (3.2-4.5); ALKALINE PHOSPHATASE 69 U/L (40-136); AMYLASE 45 U/L (25-125); BILIRUBIN,TOTAL 0.9 MG/DL (0.1-1.0); BUN/CREATININE RATIO 16; CALCIUM 8.9 MG/DL (8.5-10.1); CARBON DIOXIDE 25 MMOL/L (21-32); CHLORIDE 96 MMOL/L (98-107); CREATININE SERUM 1.22 MG/DL (0.60-1.30); GFR ESTIMATED 57; GLUCOSE 107 MG/DL (70-105); MAGNESIUM 1.6 MG/DL (1.8-2.4); SODIUM 130 MMOL/L (135-145); TOTAL PROTEIN 6.5 GM/DL (6.4-8.2)
--- NOTE | 2018-12-22 19:27 | ED Chest Pain ---
General Chief Complaint: General Problems/Pain Stated Complaint: CP/MICHAEL ARM PAIN/FEELS WEIRD Nursing Triage Note: PT STATES NOT FEELING RIGHT. PT HAD A STENT PLACEMENT ON November. 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 PT STATES FEELING "BURNING AROUND HEART" PT DENIES CHEST PAIN AT THIS TIME. PT DENIES CONFUSION. PT STATES HURTING IN LEFT ARM. Nursing Sepsis Screen: No Definite Risk Source: patient, family (FAMILY TRIES TO DO ALL TALKING FOR PT) History of Present Illness Date Seen by Provider: Dec 22, 2018 Time Seen by Provider: 18:40 Initial Comments PT ARRIVES VIA POV FROM HOME WITH FAMILY C/O CHEST DISCOMFORT --BURNING SENSATION--IN MID CHEST, RADIATING DOWN LEFT ARM SYMPTOMS BEGAN 30 MINUTES AGO, AND HAVE RESOLVED PRIOR TO ARRIVAL NO SHORTNESS OF BREATH NO PALPITATIONS NO SWEATS NO NAUSEA/VOMITING NO SYNCOPE WAS SLIGHTLY LIGHTHEADED EARLIER, BUT NOT NOW NO SWELLING IN LEGS/ FEET OR PAIN IN CALVES PT STATES HE "HASN'T FELT GOOD" ALL DAY, BUT NO SPECIFIC SYMPTOMS UNTIL CHEST PAIN 30 MINUTES AGO 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 STATES HE HAD A FAN ON HIM AT ALL TIMES, BUT NO AIR CONDITIONING IN THE TRAILER--STATES IT WAS NOT HOT PT HAS CABG IN 1997, AND STENTS X 3--LAST STENT PLACED BY DR. FERRER 11/15/18, HAS FIRST FOLLOW UP APPOINTMENT THIS Saturday12/24/18 HAS HAD PACEMAKER WITH REPLACEMENT IN 2016 FOR SICK SINUS SYNDROME PT TAKES PLAVIX + 81 MG ASPIRIN DENIES ANY MISSED DOSES OF MEDICATIONS PCP: DR. YOUNGER INDUSTRIAL AERIAL INSTALLER: DR. FERRER Allergies and Home Medications Allergies Coded Allergies: nitroglycerin (Unverified Allergy, Unknown, 12/22/18) pt states "I GO OUT WHEN I TAKE NITRO" Bbbpwsg-Dpz-Cxe Reductase Inhibitor (Verified Adverse Reaction, Mild, 12/22/18) joint pain Home Medications Aspirin 81 Mg Tablet., 81 MG PO DAILY, (Reported) Clopidogrel Bisulfate 75 Mg Tablet, 75 MG PO DAILY Prescribed by: BEVERLEY YOUNGER on 05/20/18 1031 Ezetimibe 10 Mg Tablet, 10 MG PO DAILY, (Reported) Glucosamine/D3/Boswellia Annalise 1 Each Tablet, 1 EACH PO DAILY, (Reported) Losartan Potassium 50 Mg Tablet, 50 MG PO DAILY CHECK BLOOD PRESSURE PRIOR TO TAKING THIS MEDICATION - IF BP IS LESS THAN 120 DO NOT TAKE THIS MED Prescribed by: BEVERLEY YOUNGER on 05/20/18 1031 Metoprolol Tartrate 50 Mg Tablet, 50 MG PO BID, (Reported) Ranolazine 500 Mg Tab.er.12h, 500 MG PO BID, (Reported) Patient Home Medication List Home Medication List Reviewed: Yes Review of Systems Review of Systems Constitutional: see HPI EENTM: No Symptoms Reported Respiratory: No Symptoms Reported Cardiovascular: See HPI, Chest Pain; Denies Edema, Denies Irregular Heart Rate, Denies Lightheadedness, Denies Palpitations, Denies Syncope Gastrointestinal: No Symptoms Reported; Denies Abdominal Pain, Denies Nausea, Denies Vomiting Genitourinary: No Symptoms Reported Musculoskeletal: see HPI; No back pain Skin: no symptoms reported Psychiatric/Neurological: No Symptoms Reported Endocrine: No Symptoms Reported Hematologic/Lymphatic: No Symptoms Reported Past Vdcpuhk-Ikxjzp-Cwserj Hx Patient Social History Alcohol Use: Regular Use Number of Drinks Today: AA Alcohol Beverage of Choice: Beer Recreational Drug Use: No Smoking Status: Former Smoker (1 PPD, QUIT 1989) Type Used: Cigarettes Former Smoker, Quit: Jun 10, 1989 2nd Hand Smoke Exposure: No Recent Foreign Travel: No Contact w/Someone Who Travel: No Recent Infectious Disease Expo: No Recent Hopitalizations: No Physical Abuse: No Sexual Abuse: No Mistreated: No Fear: No Immunizations Up To Date Tetanus Booster (TDap): Unknown PED Vaccines UTD: No Seasonal Allergies Seasonal Allergies: No Past Medical History Surgeries: Yes (PACEMAKER X2--LAST REPLACED IN 2015; MULTIPLE CARDIAC C ATHS--STENTS X 3; CABG 1995; SKIN CANCER REMOVED FROM LEFT CHEEK; BILATERAL CARPAL TUNNEL SURGERY; RADIATION SEEDS IMPLANTED IN PROSTATE; LEFT KNEE SCOPE; COLONOSCOPY) Bladder Surgery, Cardiac, CABG, Coronary Stent, Gallbladder, Orthopedic, Pacemaker, Transurethral Resection Respiratory: Yes (DYSPNEA ON EXERTION) Asthma Cardiac: Yes (MULTIPLE CARDIAC CATHS--STENTS X 3; CABG 1995; CAROTID DISEASE; SICK SINUS SYNDROME; [place] 1997; PACEMAKER 2008; HAS CODED IN THE PAST) Coronary Artery Disease, Heart Attack, High Cholesterol, Hypertension Neurological: Yes (TIA 09/2018--NO RESIDUAL ; CVA 2017--NO RESIDUAL) Stroke, TIA Reproductive Disorders: Yes (E.D.) Sexually Transmitted Disease: No HIV/AIDS: No Genitourinary: Yes (TURP) Benign Prostatic Hyperpl, Prostate Problems Gastrointestinal: Yes Gall Bladder Disease Musculoskeletal: Yes Arthritis, Chronic Back Pain Endocrine: No HEENT: Yes (DENTURES) Loss of Vision: Denies Hearing Impairment: Denies Cancer: Yes (BASAL CELL CANCER LEFT CHEEK; 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) Prostate, Skin Did You Recieve Any Treatments: Yes (RADIATION IMPLANTS IN PROSTATE; REMOVAL OF BASAL CELL CANCER LEFT CHEEK) What Type of Treatment Did You: Radiation, Surgical Intervention Psychosocial: No Integumentary: No Blood Disorders: No Adverse Reaction/Blood Tranf: No Family Medical History Alzheimer's disease 19 FATHER, Onset:60 years & older Cardiovascular disease 19 FATHER, Onset:15's - 20 (Was told that he had a "Leaky Heart") FH: brain cancer 19 MOTHER, Onset:60 years & older G8 BROTHER, Onset:50's - 60 FH: lung cancer 19 MOTHER, Onset:60 years & older FH: sudden G8 BROTHER, Onset:Childhood (Was ran over by a car at the age of 6.) Heart Disease, Hypertension Physical Exam Vital Signs Vital Signs - First Documented 12/22/18 18:41 Temp 97.6 Pulse 74 Resp 18 B/P (MAP) 171/95 (120) Pulse Ox 97 O2 Delivery Room Air Capillary Refill : Less Than 3 Seconds Height, Weight, BMI Height: 5'10.00" Weight: 181lbs. 5.0oz. 82.829930oe; 25.8 BMI Method:Stated General Appearance: No Apparent Distress, WD/WN Neck: Full Range of Motion, Normal Inspection, Non Tender, Supple; No JVD Respiratory: Chest Non Tender, Normal Breath Sounds, No Accessory Muscle Use, No Respiratory Distress Cardiovascular: Regular Rate, Rhythm, No Edema, No JVD, No Murmur, Normal Peripheral Pulses Gastrointestinal: Normal Bowel Sounds, No Organomegaly, Non Tender, Soft Extremity: Normal Capillary Refill, Normal Inspection, Normal Range of Motion, Non Tender, No Calf Tenderness, No Pedal Edema Neurologic/Psychiatric: Alert, Oriented x3, No Motor/Sensory Deficits, Normal Mood/Affect, non profit job titles II-XII Norm as Tested Skin: Normal Color, Warm/Dry Progress/Results/Core Measures Results/Orders Lab Results Laboratory Tests Test 7/15/19 18:46 Range/Units White Blood Count 7.9 4.3-11.0 10^3/uL Red Blood Count 4.20 L 4.35-5.85 10^6/uL Hemoglobin 12.3 L 13.3-17.7 G/DL Hematocrit 37 L 40-54 % Mean Corpuscular Volume 88 80-99 FL Mean Corpuscular Hemoglobin 29 25-34 PG Mean Corpuscular Hemoglobin Concent 33 32-36 G/DL Red Cell Distribution Width 13.8 10.0-14.5 % Platelet Count 208 130-400 10^3/uL Mean Platelet Volume 9.2 7.4-10.4 FL Neutrophils (%) (Auto) 70 42-75 % Lymphocytes (%) (Auto) 14 12-44 % Monocytes (%) (Auto) 13 H 0-12 % Eosinophils (%) (Auto) 3 0-10 % Basophils (%) (Auto) 0 0-10 % Neutrophils # (Auto) 5.5 1.8-7.8 X 10^3 Lymphocytes # (Auto) 1.1 1.0-4.0 X 10^3 Monocytes # (Auto) 1.0 0.0-1.0 X 10^3 Eosinophils # (Auto) 0.2 0.0-0.3 10^3/uL Basophils # (Auto) 0.0 0.0-0.1 10^3/uL Prothrombin Time 14.2 12.2-14.7 SEC INR Comment 1.1 0.8-1.4 Activated Partial Thromboplast Time 29 24-35 SEC Sodium Level 130 L 135-145 MMOL/L Potassium Level 4.0 3.6-5.0 MMOL/L Chloride Level 96 L 98-107 MMOL/L Carbon Dioxide Level 25 21-32 MMOL/L Anion Gap 9 5-14 MMOL/L Blood Urea Nitrogen 19 H 7-18 MG/DL Creatinine 1.22 0.60-1.30 MG/DL Estimat Glomerular Filtration Rate 57 BUN/Creatinine Ratio 16 Glucose Level 107 H 70-105 MG/DL Calcium Level 8.9 8.5-10.1 MG/DL Corrected Calcium 9.0 8.5-10.1 MG/DL Magnesium Level 1.6 L 1.8-2.4 MG/DL Total Bilirubin 0.9 0.1-1.0 MG/DL Aspartate Amino Transf (AST/SGOT) 15 5-34 U/L Alanine Aminotransferase (ALT/SGPT) 16 0-55 U/L Alkaline Phosphatase 69 40-136 U/L Myoglobin 148.4 H 10.0-92.0 NG/ML Troponin I < 0.028 <0.028 NG/ML B-Type Natriuretic Peptide 243.1 H <100.0 PG/ML Total Protein 6.5 6.4-8.2 GM/DL Albumin 3.9 3.2-4.5 GM/DL Amylase Level 45 25-125 U/L Lipase 22 8-78 U/L My Orders Orders - COLETTE STOLL DO Cbc With Automated Diff (12/22/18 18:40) Magnesium (12/22/18 18:40) Chest 1 View, Ap/Pa Only (12/22/18 18:40) Ekg Tracing (12/22/18 18:40) Cardiac Profile 1 (12/22/18 18:40) Comprehensive Metabolic Panel (12/22/18 18:40) Myoglobin Serum (12/22/18 18:40) Protime With Inr (12/22/18 18:40) Partial Thromboplastin Time (12/22/18 18:40) O2 (12/22/18 18:40) Monitor-Rhythm Ecg Trace Only (12/22/18 18:40) Ed Iv/Invasive Line Start (12/22/18 18:40) Lipase (12/22/18 18:40) Amylase (12/22/18 18:40) BNP (12/22/18 18:40) Nitroglycerin 0.4 Mg Btl 25's (Nitrostat (12/22/18 18:45) Aspirin Chewable Tablet (Baby Aspirin Ch (12/22/18 18:45) Magnesium 1 Gm/100 Ml Ivpb (Magnesium Sepulveda (12/22/18 19:45) Ed Iv/Invasive Line Start (12/22/18 20:17) Ns Iv 1000 Ml (Sodium Chloride 0.9%) (12/22/18 20:17) Medications Given in ED Current Medications Medications Dose Ordered Sig/Leana Route Start Time Stop Time Status Last Admin Dose Admin Aspirin 324 mg ONCE ONCE PO 12/22/18 18:45 12/22/18 18:46 DC 12/22/18 18:54 324 MG Vital Signs/I&O 12/22/18 12/22/18 18:41 18:46 Temp 97.6 Pulse 74 Resp 18 B/P (MAP) 171/95 (120) Pulse Ox 97 94 O2 Delivery Room Air Room Air Blood Pressure Mean: 120 Progress Progress Note : Progress Note NO SYMPTOMS DURING ENTIRE ER STAY Initial ECG Impression Date: Dec 22, 2018 Initial ECG Impression Time: 18:40 Initial ECG Rate: 80 Initial ECG Comparisson: Unchanged Comment 100% ATRIAL PACED RHYTHM Diagnostic Imaging Comments CXR--STABLE CARDIOMEGALY, NO ACUTE PROCESS, PER RADIOLOGIST REPORT AT 1922 Reviewed: Reviewed by Me Departure Communication (Admissions) 2012--CALLED DR. YOUNGER, MESSAGE LEFT ON CELL PHONE 2015--CALLED DR. TOLBERT, INDUSTRIAL AERIAL INSTALLER, MESSAGE LEFT ON CELL PHONE 2030--SPOKE WITH DR. TOLBERT, WILL SEE PT IN CONSULT-ADMIT TO HOSPITALIST/PCP, ADVISES BRILINTA 180 MG NOW X 1 DOSE. 2031--SPOKE WITH DR. YOUNGER, ACCEPTS PT FOR ADMIT Impression Primary Impression: Chest pain Disposition: ADMITTED INPATIENT Condition: Improved Admissions Decision to Admit Reason: Admit from ER (General) Decision to Admit/Date: Dec 22, 2018 Time/Decision to Admit Time: 20:30 Departure-Patient Inst. Referrals: BEVERLEY YOUNGER MD (PCP/Family) Primary Care Physician COLETTE STOLL DO Dec 22, 2018 19:27
[2018-12-22 20:00] LABS: LIPASE 22 U/L (8-78)
[2018-12-22] MEDS ORDERED: NS IV 1000 ML 1,000 ML IV SCH (20:17)
[2018-12-22] MEDS: MAGNESIUM 1 GM/100 ML IVPB 100 ML IV SCH ×2 (20:23→21:34)
[2018-12-22] MEDS ORDERED: TICAGRELOR 90 MG TABLET (BRILINTA) PO ONE (20:45)
[2018-12-22 21:49] VITALS: BP 176/91
[2018-12-22 22:10] VITALS: BP 176/91
[2018-12-22 22:15] VITALS: BP 167/84
[2018-12-22] MEDS ORDERED: morphine INJ 4 MG/ML 1 ML (VIAL/SYRINGE) IV PRN (22:15)
[2018-12-22 22:30] VITALS: BP 158/83
[2018-12-22 22:45] VITALS: BP 171/94
[2018-12-22 23:00] VITALS: BP 157/83
[2018-12-23] VITALS (13 sets, daily range): BP systolic 131–168; BP diastolic 67–99
[2018-12-23 03:48] LABS: BASOPHILS % (AUTO) 0 % (0-10); EOSINOPHILS # (AUTO) 0.3 10^3/uL (0.0-0.3); EOSINOPHILS % (AUTO) 5 % (0-10); HEMATOCRIT 37 % (40-54); HEMOGLOBIN 12.4 G/DL (13.3-17.7); LYMPHOCYTES # (AUTO) 1.1 X 10^3 (1.0-4.0); LYMPHOCYTES % (AUTO) 18 % (12-44); MEAN CORPUSCULAR HEMOGLOBIN 30 PG (25-34); MEAN CORPUSCULAR HGB CONC 34 G/DL (32-36); MEAN CORPUSCULAR VOLUME 88 FL (80-99); MEAN PLATELET VOLUME 9.4 FL (7.4-10.4); MONOCYTES # (AUTO) 1.1 X 10^3 (0.0-1.0); MONOCYTES % (AUTO) 17 % (0-12); NEUTROPHILS # (AUTO) 3.8 X 10^3 (1.8-7.8); NEUTROPHILS % (AUTO) 61 % (42-75); PLATELET COUNT 201 10^3/uL (130-400); RED CELL DISTRIBUTION WIDTH 13.9 % (10.0-14.5); WHITE BLOOD COUNT 6.3 10^3/uL (4.3-11.0)
[2018-12-23 04:10] LABS: ALANINE AMINOTRANSFERASE 13 U/L (0-55); ALBUMIN 3.5 GM/DL (3.2-4.5); ALKALINE PHOSPHATASE 65 U/L (40-136); BILIRUBIN,TOTAL 1.2 MG/DL (0.1-1.0); BUN/CREATININE RATIO 13; CALCIUM 8.9 MG/DL (8.5-10.1); CARBON DIOXIDE 25 MMOL/L (21-32); CHLORIDE 103 MMOL/L (98-107); CREATININE SERUM 1.15 MG/DL (0.60-1.30); GFR ESTIMATED > 60; GLUCOSE 96 MG/DL (70-105); MAGNESIUM 2.2 MG/DL (1.8-2.4); POTASSIUM 4.5 MMOL/L (3.6-5.0); SODIUM 136 MMOL/L (135-145); TOTAL PROTEIN 5.8 GM/DL (6.4-8.2); TRIGLYCERIDES 107 MG/DL (<150)
[2018-12-23 04:11] LABS: CHOLESTEROL 132 MG/DL (< 200); HDL CHOLESTEROL 44 MG/DL (40-60); VLDL CHOLESTEROL 21 MG/DL (5-40)
[2018-12-23] MEDS ORDERED: ESCI10TA55 PO (08:36)
[2018-12-23] MEDS ORDERED: CLOP75TA28 PO (08:36)
[2018-12-23] MEDS: NS IV 1000 ML 1,000 ML IV SCH ×2 (08:49→12:31)
--- NOTE | 2018-12-23 08:57 | Consultation-Cardiology ---
HPI-Cardiology Cardiology Consultation: Date of Consultation 12/23/18 Date of Admission Attending Physician Susannah Dumont MD Admitting Physician Susannah Dumont MD Consulting Physician Harriet SANTANA MD HPI: Time Seen by a Provider: 08:30 Chief Complaint: Chest pain This is a 83-year-old gentleman who is a patient of Dr. Hampton. He has history of CAD and PCI. He presents with complain of chest pain in the mid chest radiating to the left arm. Total duration 30 minutes. No associated shortness of breath, palpitation, nausea vomiting, syncope or near syncope. He has previous history of CABG. He had a stent placement by Dr. Hampton on 11/25/2018. He continues to be compliant with dual antiplatelet therapy. Review of Systems-Cardiology Review of Systems Constitutional: As described under HPI; No As described under HPI, No no symptoms reported, No chills, No fever, No lightheadedness Eyes: No As described under HPI, No no symptoms reported, No blindness, No blurred vision, No contact lenses, No drainage, No decreased acuity, No foreign body sensation, No pain, No vision change Ears/Nose/Throat: No As described under HPI, No no symptoms reported, No chronic hearing loss, No ear discharge, No ear pain, No nasal drainage, No ulcerations Respiratory: No no symptoms reported; As described under HPI; No As described under HPI, No cough, No orthopnea, No shortness of breath, No SOB with excertion Cardiovascular: No no symptoms reported; As described under HPI; No As described under HPI; chest pain; No edema, No irregular heart rate, No lightheadedness, No palpitations Gastrointestinal: No no symptoms reported, No As described under HPI, No abdomen distended, No abdominal pain, No blood streaked bowels, No constipation, No diarrhea, No nausea, No vomiting, No stool coloration changes Genitourinary: No As described under HPI, No burning, No dysuria, No discharge, No frequency, No flank pain, No hematuria, No urgency Skin: No rash, No skin related problems, No ulcerations Psychiatric/Neurological: No anxiety, No depression, No seizure, No focal weakness, No syncope Hematologic: No bleeding abnormalities UIE-Rbczot-Slphiq Hx Patient Social History Alcohol Use: Occasionally Uses Recreational Drug Use: No Smoking Status: Former Smoker (1 PPD, QUIT 1989) Former smoker/When Quit: Apr 30, 1996 Type Used: Cigarettes 2nd Hand Smoke Exposure: No Recent Foreign Travel: Yes Recent Infectious Disease Expo: No Hospitalization with Isolation: Denies Physical Abuse Screen: No Sexual Abuse: No Immunizations Up To Date Tetanus Booster (TDap): Unknown Past Medical History PMH As described under Assessment. Family Medical History Family History: Alzheimer's disease 19 FATHER, Onset:60 years & older Cardiovascular disease 19 FATHER, Onset:15s - 20 (Was told that he had a "Leaky Heart") FH: brain cancer 19 MOTHER, Onset:60 years & older G8 BROTHER, Onset:50's - 60 FH: lung cancer 19 MOTHER, Onset:60 years & older FH: sudden G8 BROTHER, Onset:Childhood (Was ran over by a car at the age of 6.) Allergies and Home Medications Allergies Coded Allergies: nitroglycerin (Unverified Allergy, Unknown, 12/22/18) pt states "I GO OUT WHEN I TAKE NITRO" Cesfndq-Ymn-Xvi Reductase Inhibitor (Verified Adverse Reaction, Mild, 12/22/18) joint pain Home Medications Acetaminophen 325 Mg Capsule, 325 MG PO Q8H PRN for PAIN-MILD, (Reported) Acetaminophen/Diphenhydramine 1 Each Tablet, 1 EACH PO HS PRN for INSOMNIA, (Reported) Aspirin 81 Mg Tablet.dr, 81 MG PO DAILY, (Reported) Clopidogrel Bisulfate 75 Mg Tablet, 75 MG PO DAILY, (Reported) Escitalopram Oxalate 10 Mg Tablet, 10 MG PO DAILY PRN for ANXIETY, (Reported) Ezetimibe 10 Mg Tablet, 10 MG PO DAILY, (Reported) Losartan Potassium 50 Mg Tablet, 50 MG PO DAILY, (Reported) Metoprolol Tartrate 50 Mg Tablet, 50 MG PO BID, (Reported) Ranolazine 500 Mg Tab.er.12h, 500 MG PO BID, (Reported) Patient Home Medication List Home Medication List Reviewed: Yes Physical Exam-Cardiology Physical Exam Vital Signs/I&O 12/23/18 12/23/18 12/23/18 12/23/18 05:00 05:32 07:00 08:00 Temp 97.4 Pulse 65 71 65 Resp 14 18 20 B/P (MAP) 168/95 (119) 152/94 (113) Pulse Ox 98 99 O2 Delivery Room Air Room Air 12/23/18 12/23/18 12/23/18 12/23/18 08:00 08:00 08:00 12:00 Pulse 60 B/P (MAP) 139/79 (99) Pulse Ox 97 100 97 100 O2 Delivery Room Air Room Air Room Air Room Air 12/23/18 12/23/18 12/23/18 12/23/18 12:00 13:00 14:39 14:41 Temp 97.4 Pulse 80 60 68 80 Resp 25 B/P (MAP) 158/85 (109) 143/99 (114) 160/88 (112) Pulse Ox 99 95 93 O2 Delivery Room Air 12/23/18 00:00 Intake Total 1560 ml Output Total 700 ml Balance 860 ml Capillary Refill : Less Than 3 Seconds Constitutional: appears stated age, AAO x 3; No apparent distress; well- developed, well-nourished HEENT: PERRL; No normal ENT inspection, No TMs normal, No pharynx normal, No scleral icterus (R), No scleral icterus (L), No pale conjunctivae (R), No pale conjunctivae (L), No photophobia, No TM abnormal (R), No TM abnormal (L), No pharyngeal erythema, No tonsillar exudate, No other, No discharge, No EOMI; hearing is well preserved; No hard of hearing; oral hygience is good; No ulceration, No xanthelasmas are seen Neck: No non-tender, No full range of motion, No supple, No normal inspection, No carotid bruit, No limited range of motion, No lymphadenopathy (R), No lymphadenopathy (L), No tender lateral, No tender midline, No thyromegaly, No other; carotid pulses are 2 + bilaterally; No with good upstrokes Respiratory: No accessory muscle use, No respiratory distress, No chest tender, No chest expansion is symmetric; chest is bilaterally symmetric; No lungs clear to percussion; lungs clear to auscultation; No crackles, No rhonchi, No rales, No stridor, No wheezing, No pleural rub, No other Cardiovascular: regular rate-rhythm; No irregularly irregular, No extra beats, No parasternal heave is noted, No JVD, No edema, No bradycardia, No tachycardia, No point of maximal impulse, No cardiac thrills are palpable; S1 and S2; No gallop/S3, No gallop/S4, No diastolic murmur, No systolic murmur, No friction rub, No click, No other Gastrointestinal: No tender, No soft, No round, No distended, No pulsatile mass, No organomegaly, No guarding, No rebound, No tenderness, No hernia, No mass, No audible bowel sounds, No abnormal bowel sounds, No abdominal bruits, No spleenomegaly, No other Rectal: deferred Extremities: No normal range of motion, No non-tender, No normal inspection, No pedal edema, No calf tenderness, No normal capillary refill, No pelvis stable, No calf tenderness, No inflammation, No pedal edema, No slow capillary refill, No swelling, No other, No abrasion, No clubbing, No cyanosis, No ecchymosis, No laceration, No no lower extremity edema bilateral, No significant edema, No tenderness, No wound Neurologic/Psychiatric: no motor/sensory deficits, alert, normal mood/affect, oriented x 3, power is 5/5 both on sides Skin: No normal color, No warm/dry, No cyanosis, No cool, No diaphoresis, No damp, No ecchymosis, No jaundice, No mottled, No pallor, No rash, No tat toos/piercings, No ulcerations, No rash on exposed areas, No ulcerations on exposed areas, No other Data Review Labs Laboratory Tests 12/22/18 18:46: White Blood Count 7.9, Red Blood Count 4.20L, Hemoglobin 12.3L, Hematocrit 37L, Mean Corpuscular Volume 88, Mean Corpuscular Hemoglobin 29, Mean Corpuscular Hemoglobin Concent 33, Red Cell Distribution Width 13.8, Platelet Count 208, Mean Platelet Volume 9.2, Neutrophils (%) (Auto) 70, Lymphocytes (%) (Auto) 14, Monocytes (%) (Auto) 13H, Eosinophils (%) (Auto) 3, Basophils (%) (Auto) 0, Neutrophils # (Auto) 5.5, Lymphocytes # (Auto) 1.1, Monocytes # (Auto) 1.0, Eosinophils # (Auto) 0.2, Basophils # (Auto) 0.0, Prothrombin Time 14.2, INR Comment 1.1, Activated Partial Thromboplast Time 29, Sodium Level 130L, Potassium Level 4.0, Chloride Level 96L, Carbon Dioxide Level 25, Anion Gap 9, Blood Urea Nitrogen 19H, Creatinine 1.22, Estimat Glomerular Filtration Rate 57, BUN/Creatinine Ratio 16, Glucose Level 107H, Calcium Level 8.9, Corrected Calcium 9.0, Magnesium Level 1.6L, Total Bilirubin 0.9, Aspartate Amino Transf (AST/SGOT) 15, Alanine Aminotransferase (ALT/SGPT) 16, Alkaline Phosphatase 69, Myoglobin 148.4H, Troponin I < 0.028, B-Type Natriuretic Peptide 243.1H, Total Protein 6.5, Albumin 3.9, Amylase Level 45, Lipase 22 12/23/18 00:40: Troponin I < 0.028 12/23/18 03:25: White Blood Count 6.3, Red Blood Count 4.18L, Hemoglobin 12.4L, Hematocrit 37L, Mean Corpuscular Volume 88, Mean Corpuscular Hemoglobin 30, Mean Corpuscular Hemoglobin Concent 34, Red Cell Distribution Width 13.9, Platelet Count 201, Mean Platelet Volume 9.4, Neutrophils (%) (Auto) 61, Lymphocytes (%) (Auto) 18, Monocytes (%) (Auto) 17H, Eosinophils (%) (Auto) 5, Basophils (%) (Auto) 0, Neutrophils # (Auto) 3.8, Lymphocytes # (Auto) 1.1, Monocytes # (Auto) 1.1H, Eosinophils # (Auto) 0.3, Basophils # (Auto) 0.0, Sodium Level 136, Potassium Level 4.5, Chloride Level 103, Carbon Dioxide Level 25, Anion Gap 8, Blood Urea Nitrogen 15, Creatinine 1.15, Estimat Glomerular Filtration Rate > 60, BUN/Creatinine Ratio 13, Glucose Level 96, Calcium Level 8.9, Corrected Calcium 9.3, Magnesium Level 2.2, Total Bilirubin 1.2H, Aspartate Amino Transf (AST/SGOT) 13, Alanine Aminotransferase (ALT/SGPT) 13, Alkaline Phosphatase 65, Total Protein 5.8L, Albumin 3.5, Triglycerides Level 107, Cholesterol Level 132, LDL Cholesterol Direct 78, VLDL Cholesterol 21, HDL Cholesterol 44 ECG Impression ECG Comment Atrial paced rhythm with no acute ST-T wave abnormalities. A/P-Cardiology Assessment/Admission Diagnosis Chest pain, History of CAD/CABG, Permanent pacemaker, Hypertension, Hyperlipidemia. Plan Chest pain, serial troponin negative. EKG negative. I'll recommend a nuclear stress test. Echocardiogram. History of CAD/CABG, the new dual antiplatelet therapy. Permanent pacemaker, no active issues. Hypertension, continue outpatient medications. Hyperlipidemia. Statin therapy. Thank you for your consultation. Please call me if you have any questions. Michelle Santana MD, FACP, FACC, FSCAI, FHRS, CCDS Interventional Cardiology Cardiac Electrophysiology Vascular Medicine and Endovascular Interventions Clinical Quality Measures DVT/VTE Risk/Contraindication: Risk Factor Score Per Nursin RFS Level Per Nursing on Admit: 4+=Very High Harriet SANTANA MD Dec 23, 2018 08:57
[2018-12-23] MEDS ORDERED: REGADENOSON 0.4 MG/5 ML SYR (LEXISCAN) IV ONE ×2 (09:00→14:22)
[2018-12-23] MEDS ORDERED: ASPIRIN E.C. 81 MG (ECOTRIN) TAB PO SCH ×2 (09:00)
[2018-12-23] MEDS ORDERED: ACET-575 PO (09:13)
[2018-12-23] MEDS ORDERED: LOSA50TA63 PO (09:13)
--- NOTE | 2018-12-23 09:17 | NUR ---
SPOKE WITH PATIENT ABOUT HIS HOME MEDS WELL GOING OVER THE EXT MED HISTORY TO COMPLETE THE MED REC. LEXAPRO - PATIENT ONLY TAKES PRN, THE PT AND HIS SON SAYS HE ONLY TAKES TO CALM HIS NERVES NEEDED AND DOES NOT TAKE DAILY. OTC MEDICATIONS: TYLENOL 325MG- 1 T Q 8 H PRN TYLENOL PM- 1 HS PRN ASPIRIN 81MG- 1 D
--- NOTE | 2018-12-23 09:24 | Short Stay Summary ---
History of Present Illness History of Present Illness Date of Admission Dec 22, 2018 at 20:20 Date of Discharge Attending Physician Beverley Dumont MD Admitting Physician Beverley Dumont MD Consult Allergies and Home Medications Allergies Coded Allergies: nitroglycerin (Unverified Allergy, Unknown, 12/22/18) pt states "I GO OUT WHEN I TAKE NITRO" Bahskjl-Cmz-Lin Reductase Inhibitor (Verified Adverse Reaction, Mild, 12/22/18) joint pain Home Medications Acetaminophen 325 Mg Capsule, 325 MG PO Q8H PRN for PAIN-MILD, (Reported) Acetaminophen/Diphenhydramine 1 Each Tablet, 1 EACH PO HS PRN for INSOMNIA, (Reported) Aspirin 81 Mg Tablet.dr, 81 MG PO DAILY, (Reported) Clopidogrel Bisulfate 75 Mg Tablet, 75 MG PO DAILY, (Reported) Escitalopram Oxalate 10 Mg Tablet, 10 MG PO DAILY PRN for ANXIETY, (Reported) Ezetimibe 10 Mg Tablet, 10 MG PO DAILY, (Reported) Losartan Potassium 50 Mg Tablet, 50 MG PO DAILY, (Reported) Metoprolol Tartrate 50 Mg Tablet, 50 MG PO BID, (Reported) Ranolazine 500 Mg Tab.er.12h, 500 MG PO BID, (Reported) Past Mwzgihq-Vlfwep-Nfsvii Hx Patient Social History Alcohol Use: Occasionally Uses Number of Drinks Today: 2 Alcohol Beverage of Choice: Beer Recreational Drug Use: No Smoking Status: Former Smoker (1 PPD, QUIT 1989) Former Smoker, Quit: Jun 10, 1989 Type Used: Cigarettes 2nd Hand Smoke Exposure: No Physical Abuse Screen: No Sexual Abuse: No Recent Foreign Travel: Yes Contact w/other who traveled: Yes Recent Hopitalizations: Yes Recent Infectious Disease Expo: No Immunizations Up To Date Tetanus Booster (TDap): Unknown Pediatric: No Seasonal Allergies Seasonal Allergies: No Surgeries Yes (PACEMAKER X2--LAST REPLACED IN 2015; MULTIPLE CARDIAC CATHS--STENTS X 3; CABG 1995; SKIN CANCER REMOVED FROM LEFT CHEEK; BILATERAL CARPAL TUNNEL SURGERY; RADIATION SEEDS IMPLANTED IN PROSTATE; LEFT KNEE SCOPE; COLONOSCOPY) Bladder Surgery, Cardiac, CABG, Coronary Stent, Gallbladder, Orthopedic, Pacemaker, Transurethral Resection Respiratory Yes (DYSPNEA ON EXERTION) Cardiovascular Yes (MULTIPLE CARDIAC CATHS--STENTS X 3; CABG 1995; CAROTID DISEASE; SICK SINUS SYNDROME; [place] 1997; PACEMAKER 2008; HAS CODED IN THE PAST) Coronary Artery Disease, Heart Attack, High Cholesterol, Hypertension Neurological Yes (TIA 09/2018--NO RESIDUAL ; CVA 2017--NO RESIDUAL) Stroke, TIA Reproductive System Hx Reproductive Disorders: Yes (E.D.) Sexually Transmitted Disease: No HIV/AIDS: No Genitourinary Yes (TURP) Benign Prostatic Hyperpl, Prostate Problems Gastrointestinal No Gall Bladder Disease Musculoskeletal Yes Fractures Endocrine History of Endocrine Disorders: No HEENT History of HEENT Disorders: Yes (DENTURES) HEENT Disorders: Cataract Loss of Vision: Denies Hearing Impairment: Hard of Hearing 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; 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) Prostate, Skin Did You Recieve Any Treatments: Yes (RADIATION IMPLANTS IN PROSTATE; REMOVAL OF BASAL CELL CANCER LEFT CHEEK) Type of Treatment: Radiation, Surgical Intervention Psychosocial History of Psychiatric Problem: No Integumentary History of Skin or Integumenta: No Blood Transfusions History of Blood Disorders: No Adverse Reaction to a Blood Tr: Yes Family Medical History Significant Family History: Heart Disease, Hypertension Family Hx: Alzheimer's disease 19 FATHER, Onset:60 years & older Cardiovascular disease 19 FATHER, Onset:15's - 20 (Was told that he had a "Leaky Heart") FH: brain cancer 19 MOTHER, Onset:60 years & older G8 BROTHER, Onset:50's - 60 FH: lung cancer 19 MOTHER, Onset:60 years & older FH: sudden G8 BROTHER, Onset:Childhood (Was ran over by a car at the age of 6.) Physical Exam Vital Signs Vital Signs - First Documented 12/22/18 18:41 Temp 97.6 Pulse 74 Resp 18 B/P (MAP) 171/95 (120) Pulse Ox 97 O2 Delivery Room Air Capillary Refill : Less Than 3 Seconds Height, Weight, BMI Height: 5'9.00" Weight: 180lbs. 4.0oz. 81.906578of; 26.6 BMI Method:Stated Clinical Quality Measures DVT/VTE Risk/Contraindication: Risk Factor Score Per Nursin RFS Level Per Nursing on Admit: 4+=Very High Short Stay Diagnosis Conclusion Labs Laboratory Tests 12/22/18 18:46: White Blood Count 7.9, Red Blood Count 4.20L, Hemoglobin 12.3L, Hematocrit 37L, Mean Corpuscular Volume 88, Mean Corpuscular Hemoglobin 29, Mean Corpuscular Hemoglobin Concent 33, Red Cell Distribution Width 13.8, Platelet Count 208, Mean Platelet Volume 9.2, Neutrophils (%) (Auto) 70, Lymphocytes (%) (Auto) 14, Monocytes (%) (Auto) 13H, Eosinophils (%) (Auto) 3, Basophils (%) (Auto) 0, Neutrophils # (Auto) 5.5, Lymphocytes # (Auto) 1.1, Monocytes # (Auto) 1.0, Eosinophils # (Auto) 0.2, Basophils # (Auto) 0.0, Prothrombin Time 14.2, INR Comment 1.1, Activated Partial Thromboplast Time 29, Sodium Level 130L, Potassium Level 4.0, Chloride Level 96L, Carbon Dioxide Level 25, Anion Gap 9, Blood Urea Nitrogen 19H, Creatinine 1.22, Estimat Glomerular Filtration Rate 57, BUN/Creatinine Ratio 16, Glucose Level 107H, Calcium Level 8.9, Corrected Calcium 9.0, Magnesium Level 1.6L, Total Bilirubin 0.9, Aspartate Amino Transf (AST/SGOT) 15, Alanine Aminotransferase (ALT/SGPT) 16, Alkaline Phosphatase 69, Myoglobin 148.4H, Troponin I < 0.028, B-Type Natriuretic Peptide 243.1H, Total Protein 6.5, Albumin 3.9, Amylase Level 45, Lipase 22 12/23/18 00:40: Troponin I < 0.028 12/23/18 03:25: White Blood Count 6.3, Red Blood Count 4.18L, Hemoglobin 12.4L, Hematocrit 37L, Mean Corpuscular Volume 88, Mean Corpuscular Hemoglobin 30, Mean Corpuscular Hemoglobin Concent 34, Red Cell Distribution Width 13.9, Platelet Count 201, Mean Platelet Volume 9.4, Neutrophils (%) (Auto) 61, Lymphocytes (%) (Auto) 18, Monocytes (%) (Auto) 17H, Eosinophils (%) (Auto) 5, Basophils (%) (Auto) 0, Neutrophils # (Auto) 3.8, Lymphocytes # (Auto) 1.1, Monocytes # (Auto) 1.1H, Eosinophils # (Auto) 0.3, Basophils # (Auto) 0.0, Sodium Level 136, Potassium Level 4.5, Chloride Level 103, Carbon Dioxide Level 25, Anion Gap 8, Blood Urea Nitrogen 15, Creatinine 1.15, Estimat Glomerular Filtration Rate > 60, BUN/Creatinine Ratio 13, Glucose Level 96, Calcium Level 8.9, Corrected Calcium 9.3, Magnesium Level 2.2, Total Bilirubin 1.2H, Aspartate Amino Transf (AST/SGOT) 13, Alanine Aminotransferase (ALT/SGPT) 13, Alkaline Phosphatase 65, Total Protein 5.8L, Albumin 3.5, Triglycerides Level 107, Cholesterol Level 132, LDL Cholesterol Direct 78, VLDL Cholesterol 21, HDL Cholesterol 44 BEVERLEY DUMONT MD Dec 23, 2018 09:24
--- NOTE | 2018-12-23 09:33 | Discharge Inst-Complex ---
PDI Med Rec & Follow Up Appt. Continued Medications: Acetaminophen (Tylenol) 325 Mg Capsule 325 MG PO Q8H PRN for PAIN-MILD Acetaminophen/Diphenhydramine (Acetaminophen Pm Caplet) 1 Each Tablet 1 EACH PO HS PRN for INSOMNIA, TAB Aspirin (Aspirin EC) 81 Mg Tablet.dr 81 MG PO DAILY, TAB Clopidogrel Bisulfate (Clopidogrel) 75 Mg Tablet 75 MG PO DAILY Escitalopram Oxalate (Escitalopram Oxalate) 10 Mg Tablet 10 MG PO DAILY PRN for ANXIETY, TAB Ezetimibe (Ezetimibe) 10 Mg Tablet 10 MG PO DAILY, TAB Losartan Potassium (Losartan Potassium) 50 Mg Tablet 50 MG PO DAILY, TAB Metoprolol Tartrate (Metoprolol Tartrate) 50 Mg Tablet 50 MG PO BID, TAB Ranolazine (Ranexa) 500 Mg Tab.er.12h 500 MG PO BID, TAB Activity, Diet and PDI Resume Normal Activity: Yes Discharge Diet: Regular Diet Driving Instructions: No Driving for 24 Hours Return to The Hospital For: ANY ACUTE CONCERNS FOR CHEST PAIN, HEART TROUBLES, OR ANY LIFETHREATENING CONCERNS. Symptoms to Reoprt to : Appetite Changes, Fever Over 101 Degrees F, Pain/Pressure in Chest, Cough Up/Vomit Blood, Pain/Pressure in Jaw, Lightheadedness, Pain/Pressure in Shoulder, Diarrhea(Persistant) For Problems or Questions: Contact Your Physician, Go to Emergency Room BEVERLEY YOUNGER MD Dec 23, 2018 09:33
[2018-12-23] MEDS ORDERED: CATHETER FLUSH 10 ML SYR IV PRN (13:45)
--- NOTE | 2018-12-23 13:52 | NUR ---
PT LEAVING UNIT VIA WC ACCOMPANIED BY STAFF FOR STRESS TEST, WILL WAIT FOR PT TO RETURN TO UNIT.
--- NOTE | 2018-12-23 16:29 | NUR ---
PT BACK TO ROOM VIA WC ACCOMPANIED BY STAFF. PT FAMILY AT BEDSIDE
--- NOTE | 2018-12-24 11:07 | Cardiology Stress Test Report ---
Stress Test Report Type of NM Stress Test: Test Type: LEXISCAN 0.4MG/5ML Date of Procedure/Referring: Date of Procedure: Dec 23, 2018 PCP Susannah Dumont MD Admitting Physician Susannah Dumont MD Indications: Chest pain Baseline Heart Rate: 63 Baseline Blood Pressure: Blood Pressure Systolic: 131 Blood Pressure Diastolic: 85 Baseline EKG: Baseline EKG: sinus rhythm Summary & Conclusion: Summary: The patient was brought to the stress lab after informed consent was taken. Stress test was performed according to the Lexiscan protocol. 0.4 mg of IV Lexiscan was given. Low-grade exercise was performed. Baseline EKG showed sinus rhythm at 63 BPM. Initial blood pressure was 157/77 mmHg. Maximum heart rate was 72 bpm and blood pressure 150/89 mmHg. Patient did not have any chest pain, arrhythmias or ST segment changes during the stress test. 10.91 mCi of Myoview were given for rest imaging and 31.8 mCi of Myoview given for stress imaging. Transient ischemic dilatation score 1.02, EF 63 percent. Normal wall motion. Normal myocardial perfusion imaging during rest and stress. Conclusion: Pharmacological stress test was negative for ischemia. Normal LV function with no wall motion abnormalities. Normal myocardial perfusion imaging during rest and stress. Harriet TOLBERT MD Dec 24, 2018 11:07
== END 2018-12-23 09:26 | disposition home or self-care (01) ==
LOC: EDUNIT# 18:36 → ER 18:37 → UNDOADMOB 20:20 → ICU 20:20 → UNDODISOB 12-23 20:28
PROVIDERS: ADMIT Family Medicine; ATTEND Family Medicine
DX: R07.9 Chest pain, unspecified (principal); E78.00 Pure hypercholesterolemia, unspecified; I49.5 Sick sinus syndrome; I25.10 Atherosclerotic heart disease of native coronary artery without angina pectoris; I25.2 Old myocardial infarction; I10 Essential (primary) hypertension; J45.909 Unspecified asthma, uncomplicated; M19.90 Unspecified osteoarthritis, unspecified site; G89.29 Other chronic pain; M54.9 Dorsalgia, unspecified; Z88.8 Allergy status to other drugs, medicaments and biological substances; Z95.0 Presence of cardiac pacemaker; Z79.82 Long term (current) use of aspirin; Z79.02 Long term (current) use of antithrombotics/antiplatelets; Z79.899 Other long term (current) drug therapy; Z87.891 Personal history of nicotine dependence; Z95.5 Presence of coronary angioplasty implant and graft; Z95.1 Presence of aortocoronary bypass graft; Z85.828 Personal history of other malignant neoplasm of skin; Z86.73 Personal history of transient ischemic attack (TIA), and cerebral infarction without residual deficits; Z85.46 Personal history of malignant neoplasm of prostate; Z90.79 Acquired absence of other genital organ(s); Z82.0 Family history of epilepsy and other diseases of the nervous system; Z82.49 Family history of ischemic heart disease and other diseases of the circulatory system; Z80.8 Family history of malignant neoplasm of other organs or systems; Z80.1 Family history of malignant neoplasm of trachea, bronchus and lung
CPT/HCPCS: 36415; 71045; 78452; 80053; 80061; 82150; 83690; 83735; 83874; 83880; 84484; 85025; 85610; 85730; 93005; 93017; 93041; 93306; 96361; 96374

== ENCOUNTER 2019-04-27 09:23 | Outpatient (RCR) | payer MEDICARE ==
[~2019-04-27 09:23] MED LIST changes: +ACDPT; +ACET-575 PO; +ACET325C5 PO; -BENA10TA7 PO; +BENA10TA9 PO; +ESCI10TA55 PO
== END 2019-06-02 | disposition home or self-care (01) ==
LOC: CR 09:23
PROVIDERS: ATTEND Internal Medicine Cardiovascular Disease
DX: Z48.812 Encounter for surgical aftercare following surgery on the circulatory system (principal); Z95.5 Presence of coronary angioplasty implant and graft
CPT/HCPCS: 93798

== ENCOUNTER → 2019-06-23 | Outpatient (CLI) | payer MEDICARE ==
[~2019-06-23] MED LIST changes: -ACET325C5 PO; +ACET325C7 PO; -TRAM50TA2 PO; +TRM50T PO
--- NOTE | 2019-06-23 09:00 | Diagnostic Imaging Report ---
EXAMINATION: US Right Lower Extremity Venous Duplex. TECHNIQUE: Multiple real-time grayscale images were obtained over the right lower extremity in various projections. Additional spectral analysis and color Doppler duplex images were also obtained. HISTORY: Swelling COMPARISON: None available. FINDINGS: The right common femoral vein, deep femoral vein, superficial femoral vein and popliteal vein are patent with normal jones scale and doppler appearance. There is normal respiratory variation and augmentation. IMPRESSION: 1. No DVT of the right lower extremity. Dictated by: Dictated on workstation # [id number]
--- NOTE | 2019-06-23 09:00 | Diagnostic Imaging Report ---
INDICATION: Right leg swelling and chest pain post fall PA and lateral chest obtained at 0852 a.m. and compared to 12/22/2018. There is poststernotomy change. The heart is borderline in size. Aorta is tortuous. There are chronic appearing increased interstitial markings. There is no acute consolidation or pneumothorax or pleural fluid. There is a stable calcified granuloma over the left lower lobe. There are diffuse degenerative findings in the thoracic spine. IMPRESSION: Borderline cardiomegaly with postoperative changes and unchanged pacemaker device. No focal infiltrate or pneumothorax or pleural fluid. Dictated by: Dictated on workstation # [id number]
== END ==
LOC: RAD 08:17
PROVIDERS: ATTEND Nurse Practitioner Family
DX: M79.89 Other specified soft tissue disorders (principal); I51.7 Cardiomegaly; R07.9 Chest pain, unspecified; W19.XXXA Unspecified fall, initial encounter; Z98.890 Other specified postprocedural states; Z95.0 Presence of cardiac pacemaker
CPT/HCPCS: 71046

== ENCOUNTER → 2019-10-19 | Outpatient (CLI) | payer MEDICARE ==
[~2019-10-19] VITALS: Ht 188 cm; Wt 86.0 kg
[~2019-10-19] MED LIST changes: +BENA10TA66 PO; -BENA10TA9 PO; +REGADENOSON 0.4 MG/5 ML SYR (LEXISCAN) IV ONE
[2019-10-19] MEDS: CATHETER FLUSH 10 ML SYR IV PRN ×2 (08:20→09:30)
[2019-10-19 09:29] VITALS: BP 158/76
--- NOTE | 2019-10-19 14:48 | STRESS TEST ---
DATE OF SERVICE: 10/19/2019 LEXISCAN MYOVIEW STRESS TEST REPORT REFERRING PHYSICIAN: Susannah Dumont MD Baseline heart rate is 62. Baseline blood pressure 158/76. Baseline EKG is sinus rhythm. In summary, the patient was injected with 10.79 mCi of technetium-99 Myoview and the resting images were obtained. Then, the patient received 0.4 mg of Lexiscan followed by 32.2 mCi of technetium-99 Myoview. Throughout the test, there were no EKG changes. The resting and stress images were reviewed and compared in the short axis, horizontal long axis, and vertical long axis views. Review of the images showed diaphragmatic attenuation with mild decreased uptake involving the mid to apical inferior wall with subtle reversibility. SSS is 5, SDS 4, TID value 0.96. On the gated images, the left ventricle appeared to be normal size with normal contractility. Calculated ejection fraction 61%. CONCLUSION: 1. The patient tolerated Lexiscan well. 2. Diaphragmatic attenuation with typical male pattern, mild decreased uptake at the mid to apical inferior wall with subtle reversibility, which could be related to the diaphragmatic attenuation. 3. Normal left ventricular size with normal contractility. Calculated ejection fraction 61%. Job ID: [id number] DocumentID: [id number] Dictated Date: 10/19/2019 12:07:44 [place] [place] Consultant Date: 10/19/2019 14:47:42 Dictated By: NACHO FERRER MD
== END ==
LOC: CARD 08:01
PROVIDERS: ATTEND Internal Medicine Cardiovascular Disease
DX: I49.5 Sick sinus syndrome (principal); I10 Essential (primary) hypertension
CPT/HCPCS: 78452; 93017

== ENCOUNTER → 2019-10-20 | Outpatient (CLI) | payer MEDICARE ==
[~2019-10-20] MED LIST changes: -REGADENOSON 0.4 MG/5 ML SYR (LEXISCAN) IV ONE
== END ==
LOC: CARD 12:58
PROVIDERS: ATTEND Internal Medicine Cardiovascular Disease
DX: I49.5 Sick sinus syndrome (principal); I10 Essential (primary) hypertension; R06.09 Other forms of dyspnea
CPT/HCPCS: 93306

== ENCOUNTER 2019-10-26 09:31 | Outpatient (RCR) | payer MEDICARE ==
[~2019-10-26] VITALS: Ht 175 cm; Wt 86.8 kg
[~2019-10-26 09:31] MED LIST changes: +ESCI20TA45 PO; +GLUC-116 PO; +LACT1CAP62 PO; +MIRT15TA PO; +MULT-1029 PO
== END 2019-10-26 15:04 | disposition home or self-care (01) ==
LOC: PREOP 09:31
PROVIDERS: ATTEND Surgery
DX: Z01.818 Encounter for other preprocedural examination (principal); Z01.812 Encounter for preprocedural laboratory examination; K40.90 Unilateral inguinal hernia, without obstruction or gangrene, not specified as recurrent
CPT/HCPCS: 87635

== ENCOUNTER 2019-10-29 11:28 | Day surgery (SDC) | payer MEDICARE ==
[~2019-10-29] VITALS: Ht 175 cm; Wt 86.8 kg
[2019-10-29] VITALS (11 sets, daily range): BP systolic 130–159; BP diastolic 65–88
[2019-10-29] MEDS ORDERED: ceFAZolin 2 GM IV Premixed 50 ML IV ONE (12:15)
[2019-10-29] MEDS: LACTATED RINGERS 1,000 ML IV PRN ×2 (12:37→15:35)
--- NOTE | 2019-10-29 12:41 | Progress Note-Pre Operative ---
Pre-Operative Progress Note H&P Reviewed The H&P was reviewed, patient examined and no changes noted. Date Seen by Provider: October 29, 2019 Time Seen by Provider: 12:40 Date H&P Reviewed: October 29, 2019 Time H&P Reviewed: 12:30 Pre-Operative Diagnosis: Left inguinal hernia ZITA SAMUEL APRN October 29, 2019 12:41
[2019-10-29] MEDS ORDERED: HYDR-4227 PO (12:44)
[2019-10-29] MEDS ORDERED: ONDANSETRON 4 MG/2 ML (SDV) Z0FRAN IVP PRN ×2 (12:45→16:00)
[2019-10-29] MEDS ORDERED: ACETAMINOPHEN 325 MG TABLET PO PRN (12:45)
[2019-10-29] MEDS ORDERED: morphine INJ 10 MG/ML 1ML (SYR OR VIAL) IVP PRN (12:45)
[2019-10-29] MEDS ORDERED: HYDROcodone/APAP 5 MG/325 MG (LORTAB) TAB PO ONE (12:45)
--- NOTE | 2019-10-29 12:45 | Discharge Inst-Surgical ---
D/C Lap Instructions-KIDO Reconcile Patient Problems Problems Reviewed?: Yes New, Converted, or Re-Newed RX: RX on Chart Follow Up Appt in 2 weeks Activity as tolerated No driving for 24 hours No driving while on pain medications Incentive Spirometry use every 2 hours while awake Regular Diet Symptoms to Report: Fever over 101 degree F, Nausea/Vomiting Infection Signs and Symptoms to report: Increased redness, Foul odor of wound, Increased drainage Bathing instructions: May shower Operative Area Clean/Dry; Keep incision clean/dry If any problems/questions: Contact your physician or go to Emergency Room ZITA SAMUEL APRN October 29, 2019 12:45
[2019-10-29] MEDS ORDERED: BUP/EPI 0.5% 1:200,000 (SENSORCAINE) 30 ML VIAL ONE (13:00)
[2019-10-29] MEDS ORDERED: DEXAMETHASONE 10 MG/ML (DECADRON) 1 ML VIAL ONE (13:14)
[2019-10-29] MEDS ORDERED: proPOfol 200 MG/20 ML (DIPRIVAN) VIAL IV ONE (13:14)
[2019-10-29] MEDS ORDERED: SEVOFLURANE (ULTANE) 15 ML INHAL SOLN ONE ×3 (13:14→15:25)
[2019-10-29] MEDS ORDERED: LIDOCAINE PF 2% 5 ML (XYLOCAINE) VIAL ONE (13:14)
[2019-10-29] MEDS ORDERED: ONDANSETRON 4 MG/2 ML (SDV) Z0FRAN ONE (13:14)
[2019-10-29] MEDS ORDERED: ROCURONIUM 10 MG/ML 5 ML SYRINGE IV ONE (13:14)
[2019-10-29] MEDS ORDERED: fentaNYL INJECTION 100 MCG/2 ML AMP ONE (13:14)
[2019-10-29] MEDS ORDERED: ceFAZolin 2 GM IV Premixed 50 ML ONE (13:16)
[2019-10-29] MEDS ORDERED: morphine INJ 4 MG/ML 1 ML (VIAL/SYRINGE) IV PRN (13:30)
[2019-10-29 13:39] LABS: BASOPHILS % (AUTO) 0 % (0-10); EOSINOPHILS # (AUTO) 0.3 10^3/uL (0.0-0.3); EOSINOPHILS % (AUTO) 4 % (0-10); HEMATOCRIT 37 % (40-54); HEMOGLOBIN 11.9 G/DL (13.3-17.7); LYMPHOCYTES % (AUTO) 17 % (12-44); MEAN CORPUSCULAR HEMOGLOBIN 29 PG (25-34); MEAN CORPUSCULAR HGB CONC 32 G/DL (32-36); MEAN CORPUSCULAR VOLUME 90 FL (80-99); MEAN PLATELET VOLUME 9.5 FL (7.4-10.4); MONOCYTES # (AUTO) 0.6 X 10^3 (0.0-1.0); MONOCYTES % (AUTO) 10 % (0-12); NEUTROPHILS # (AUTO) 4.2 X 10^3 (1.8-7.8); NEUTROPHILS % (AUTO) 69 % (42-75); PLATELET COUNT 196 10^3/uL (130-400); RED CELL DISTRIBUTION WIDTH 14.4 % (10.0-14.5); WHITE BLOOD COUNT 6.1 10^3/uL (4.3-11.0)
[2019-10-29] MEDS ORDERED: MIDAZOLAM 2 MG/2 ML (VERSED) VIAL ONE (14:15)
--- NOTE | 2019-10-29 15:36 | Progress Note-Post Operative ---
Post-Operative Progess Note Surgeon (s)/Demolition Crane Operator (s) Surgeon HONORIO ELLIS MD Demolition Crane Operator: chaparrita oakes [employer] Pre-Operative Diagnosis Left inguinal hernia Post-Operative Diagnosis left indirect inguinal hernia, incisional hernia. Procedure & Operative Findings Date of Procedure 10/29/19 Procedure Performed/Findings laparoscopic left inguinal hernia repair with mesh. open ventral abdominal incisional hernia repair primarily. Anesthesia Type get Estimated Blood Loss Estimated blood loss (mL): minimal Specimens/Packing Specimens Removed none HONORIO ELLIS MD October 29, 2019 15:36
--- NOTE | 2019-10-29 15:48 | Anesthesia-General Post-Op ---
General Patient Condition Mental Status/LOC: Same as Preop Cardiovascular: Satisfactory Nausea/Vomiting: Absent Respiratory: Satisfactory Pain: Controlled Complications: Absent Post Op Complications Complications None Follow Up Care/Instructions Patient Instructions None needed. Anesthesia/Patient Condition Patient Condition Patient is doing well, no complaints, stable vital signs, no apparent adverse anesthesia problems. No complications reported per nursing. NILE CABRERA CRNA October 29, 2019 15:48
[2019-10-29] MEDS ORDERED: morphine INJ 10 MG/ML 1ML (SYR OR VIAL) IVP ONE (16:00)
[2019-10-29] MEDS ORDERED: fentaNYL INJECTION 100 MCG/2 ML AMP IVP ONE (16:00)
[2019-10-29] MEDS ORDERED: MEPERIDINE (DEMEROL) INJ 50 MG/ML IVP ONE (16:00)
--- NOTE | 2019-10-29 16:50 | NUR ---
TO ROOM 407 PER CART. DAUGHTER AT BEDSIDE. SKIN W/D. COLOR PINK. X 3 DERMABOND INC. SITES TO ABD. CLEAN AND DRY WITH MOD. AMT. BRUISING TO MIDDLE INC. TAKING SPRITE WELL. DENIES PAIN OR NAUSEA . V/S=159/79 P=61 R=16 O2 SAT 96 % ON R/A.
--- NOTE | 2019-10-29 18:00 | NUR ---
UP AND AMBULATED IN HALLWAY. TANIYA. WELL. VOIDED ADEQUATE AMT. OF CLEAR YELLOW URINE.
--- NOTE | 2019-10-29 18:30 | NUR ---
SHAVONNE MAIN demonstrates understanding of discharge instructions and accurately returns instructions upon questioning. Copy of Post-Discharge Instructions given to PT. SHAVONNE MAIN is able to manage continuing needs after discharge. Patients belongings returned to PT. Patient discharged from 407-1 on 10/29/19 at 1830. SHAVONNE MAIN left floor viaW/C], accompanied by STAFF AND DAUGHTER PER AUTO.
--- NOTE | 2019-10-29 20:05 | OPERATIVE REPORT ---
DATE OF SERVICE: 10/29/2019 ATTENDING PRIMARY CARE PHYSICIAN: Dr. Susannah Dumont. PREOPERATIVE DIAGNOSIS: Symptomatic reducible left inguinal hernia. POSTOPERATIVE DIAGNOSES: Symptomatic reducible indirect inguinal hernia, ventral abdominal incisional hernia. PROCEDURE: Laparoscopic left inguinal hernia repair with mesh, open ventral abdominal incisional hernia repair primarily. SURGEON: Honorio Ellis MD [employer]: Indio Blandon APRN. ANESTHESIA: General endotracheal. ESTIMATED BLOOD LOSS: Minimal. FINDINGS: Symptomatic reducible indirect inguinal hernia, ventral abdominal incisional hernia. DISPOSITION: The patient tolerated the procedure well. INDICATIONS: The patient is an 84-year-old male who has had pain and swelling in the left inguinal region for the past 6 months. He states that throughout the day, this grows in size and becomes more painful and then at night at rest this does reduce on its own. He states that he is otherwise eating well and having normal bowel movements. He states that the discomfort has worsened over time. He was seen in the office and found to have a reducible left inguinal hernia; however, tender to palpation. DESCRIPTION OF PROCEDURE: The patient was brought to the operating room, laid supine on the table. After adequate IV pain and sedative medications and general endotracheal intubation, the abdomen was prepped and draped in standard surgical fashion. Upon further examination, the patient was found to have an incisional hernia in the periumbilical region. There appeared to be adhesion tissue from a previous midline laparotomy incision. We then decided to place our Veress needle in the left lower abdominal quadrant after the skin and peritoneal lining were anesthetized using 0.5% Marcaine with epinephrine and a transverse skin incision made using 15 blade. There were omental as well as sigmoid colonic adhesions towards the midline, which were taken down using blunt dissection as well as the Sonicision. This had been done after a right lower abdominal quadrant 5 mm port was placed. Once the infraumbilical region was cleared, a 10 mm port was placed. Good hemostasis was observed. The 10 mm port was placed through the incisional hernia defect. The patient was then placed in reverse Trendelenburg position and a wedge of mesentery was then opened using Sonicision starting laterally towards the conjoined tendon in the inguinal ligament and medially towards the conjoined tendon. We then proceeded with inferior dissection encompassing the entire hernia sac and identifying the cord and its surrounding contents and sparing these structures. Good hemostasis was observed. A medium sized 3DMax polypropylene mesh was then placed through the 10 mm port and tacked to Francis's ligament medially and the conjoined tendon laterally. The omentum was then placed over the mesh and a few absorbable tacks placed to hold this in place. We then decided to proceed with open repair of the ventral abdominal incisional hernia. The skin incision was extended laterally using a 15 blade. The fascia was then dissected out using electrocautery. The fascial defect was then closed using 0 Prolene running suture. The skin was then closed using 4-0 Monocryl running subcuticular suture. Wound was then cleaned and covered with Dermabond. The umbilicus was then filled with tonsil sponges followed by 4 x 4 gauze followed by large Op-Site. The patient tolerated the procedure well. We will start IV normal pain medication as well as a clear liquid diet. Once he is tolerating clears, has good pain control with oral pain medications, ambulating well, we will discharge him home. Job ID: [id number] DocumentID: [id number] Dictated Date: 10/29/2019 15:45:06 Manager Of Business Date: 10/29/2019 20:05:10 Dictated By: HONORIO ELLIS MD
== END 2019-10-29 18:30 | disposition home or self-care (01) ==
LOC: SDC 11:28 → 4TH 16:46 → SDC 18:30
PROVIDERS: ATTEND Surgery
DX: K40.90 Unilateral inguinal hernia, without obstruction or gangrene, not specified as recurrent (principal); K43.2 Incisional hernia without obstruction or gangrene; K66.0 Peritoneal adhesions (postprocedural) (postinfection); I10 Essential (primary) hypertension; I25.10 Atherosclerotic heart disease of native coronary artery without angina pectoris; I49.5 Sick sinus syndrome; I65.29 Occlusion and stenosis of unspecified carotid artery; I65.23 Occlusion and stenosis of bilateral carotid arteries; E78.5 Hyperlipidemia, unspecified; E78.00 Pure hypercholesterolemia, unspecified; M19.90 Unspecified osteoarthritis, unspecified site; F32.9 Major depressive disorder, single episode, unspecified; Z88.8 Allergy status to other drugs, medicaments and biological substances; Z87.891 Personal history of nicotine dependence; Z85.46 Personal history of malignant neoplasm of prostate; Z79.899 Other long term (current) drug therapy; Z79.82 Long term (current) use of aspirin; Z79.02 Long term (current) use of antithrombotics/antiplatelets; Z95.0 Presence of cardiac pacemaker; Z95.1 Presence of aortocoronary bypass graft; Z90.49 Acquired absence of other specified parts of digestive tract; Z96.642 Presence of left artificial hip joint; Z80.1 Family history of malignant neoplasm of trachea, bronchus and lung; Z80.8 Family history of malignant neoplasm of other organs or systems
CPT/HCPCS: 36415; 85025; 87081

== ENCOUNTER 2020-01-03 15:33 | Emergency (ER) | payer MEDICARE ==
[~2020-01-03] VITALS: Ht 177 cm; Wt 83.9 kg
[~2020-01-03 15:33] MED LIST changes: +HYDR-4227 PO
--- NOTE | 2020-01-03 15:53 | ED General ---
General Chief Complaint: Trauma-Non Activation Stated Complaint: LAC Nursing Triage Note: fall off of tailgate Source of Information: Patient Exam Limitations: No Limitations History of Present Illness Date Seen by Provider: Jan 03, 2020 Time Seen by Provider: 15:49 Initial Comments To ER by EMS with reports of syncopal event. He had just finished moving a trailer onto some property that he owns. He is very hot and went to set on the tailgate. Temperatures outside R upwards of 95. Once he sat on the tailgate he passed out falling forward and subsequently lacerated just above the left eyebrow. At this time he states he feels back to normal. Timing/Duration: 1/2 Hour Severity: Moderate Associated Systoms: Denies Symptoms Allergies and Home Medications Allergies Coded Allergies: nitroglycerin (Unverified Allergy, Severe, SYNCOPE, 10/23/19) Kuonvtn-Wqn-Lns Reductase Inhibitor (Verified Adverse Reaction, Mild, JOINT PAIN, 10/23/19) Home Medications Aspirin 81 Mg Tablet.dr, 81 MG PO DAILY, (Reported) Cephalexin 500 Mg Tablet, 500 MG PO QID Prescribed by: GLORIA HILL on 01/03/20 1636 Clopidogrel Bisulfate 75 Mg Tablet, 75 MG PO DAILY, (Reported) Escitalopram Oxalate 20 Mg Tablet, 20 MG PO DAILY, (Reported) Ezetimibe 10 Mg Tablet, 10 MG PO DAILY, (Reported) Gluc/Augustine-MSM#2/C/D3/Juan M/Born 1 Each Tablet, 1 EACH PO DAILY, (Reported) Hydrocodone/Acetaminophen 1 Each Tablet, 1-2 TAB PO Q4H Prescribed by: ZITA SAMUEL on 10/29/19 1244 Lactobacillus Acidophilus 1 Each Capsule, 1 EACH PO BID, (Reported) Losartan Potassium 50 Mg Tablet, 50 MG PO DAILY, (Reported) Metoprolol Tartrate 50 Mg Tablet, 50 MG PO BID, (Reported) Mirtazapine 15 Mg Tablet, 15 MG PO HS, (Reported) Multivit-Min/FA/Lycopene/Lut 1 Each Tablet, 1 EACH PO DAILY, (Reported) Patient Home Medication List Home Medication List Reviewed: Yes Review of Systems Review of Systems Constitutional: see HPI EENTM: see HPI Respiratory: no symptoms reported Cardiovascular: no symptoms reported Genitourinary: no symptoms reported Musculoskeletal: no symptoms reported Skin: no symptoms reported Psychiatric/Neurological: No Symptoms Reported Hematologic/Lymphatic: No Symptoms Reported Immunological/Allergic: no symptoms reported Past Zxyocfb-Blggpr-Lzedsw Hx Patient Social History Alcohol Beverage of Choice: Wine Type Used: Cigarettes Former Smoker, Quit: October 22, 1994 2nd Hand Smoke Exposure: Yes Recent Hopitalizations: No Immunizations Up To Date Tetanus Booster (TDap): Unknown PED Vaccines UTD: No Seasonal Allergies Seasonal Allergies: No Past Medical History Surgeries: Yes (L THR) Cardiac, CABG, Coronary Stent, Gallbladder, Orthopedic, Pacemaker, Transurethral Resection Respiratory: Yes (MILD DYSPNEA ON EXERTION) Asthma Currently Using CPAP: No Currently Using BIPAP: No Cardiac: Yes (CABG 1997, STENT 2014) Coronary Artery Disease, Heart Attack, High Cholesterol, Hypertension Neurological: Yes (TIA 09/2018--NO RESIDUAL ; CVA 2017--NO RESIDUAL) Stroke, TIA Reproductive Disorders: Yes (E.D.) Sexually Transmitted Disease: No HIV/AIDS: No Genitourinary: Yes (TURP) Benign Prostatic Hyperpl, Prostate Problems Gastrointestinal: No Gall Bladder Disease Musculoskeletal: Yes Arthritis, Fractures Endocrine: No HEENT: Yes (DENTURES) Cataract Loss of Vision: Denies Hearing Impairment: Hard of Hearing Cancer: Yes Prostate, Skin Did You Recieve Any Treatments: Yes What Type of Treatment Did You: Radiation, Surgical Intervention Psychosocial: No Integumentary: No Blood Disorders: No Adverse Reaction/Blood Tranf: Yes (HAS HAD BLOOD WITH NO REACTION) Family Medical History Alzheimer's disease 19 FATHER, Onset:60 years & older Cardiovascular disease 19 FATHER, Onset:15's - 20 (Was told that he had a "Leaky Heart") FH: brain cancer 19 MOTHER, Onset:60 years & older G8 BROTHER, Onset:50's - 60 FH: lung cancer 19 MOTHER, Onset:60 years & older FH: sudden G8 BROTHER, Onset:Childhood (Was ran over by a car at the age of 6.) Heart Disease, Hypertension Physical Exam Vital Signs Vital Signs - First Documented 01/03/20 15:44 Temp 36.6 Pulse 62 Resp 17 B/P (MAP) 131/69 (89) Pulse Ox 98 O2 Delivery Room Air Capillary Refill : Height, Weight, BMI Height: 5'9.00" Weight: 180lbs. 4.0oz. 81.795056ck; 28.34 BMI Method:Stated General Appearance: No Apparent Distress, WD/WN, Other (alert and oriented, conversing and joking with us.Pleasant.) Eyes: Bilateral Eye Normal Inspection, Bilateral Eye PERRL, Bilateral Eye EOMI HEENT: PERRL/EOMI, TMs Normal, Normal ENT Inspection, Other (2 cm laceration to the lateral aspect of the left eyebrow depth to the subcutaneous tissue.) Respiratory: No Accessory Muscle Use, No Respiratory Distress Cardiovascular: Regular Rate, Rhythm, Normal Peripheral Pulses Gastrointestinal: Normal Bowel Sounds, Non Tender, Soft Extremity: Normal Capillary Refill, Normal Inspection Neurologic/Psychiatric: Alert, Oriented x3 Skin: Normal Color, Warm/Dry Procedures/Interventions Wound Location: Face Wound Length (cm): 3 Wound's Depth, Shape: into muscle, irregular, contused tissue Wound Explored: foreign body removed Irrigated w/ Saline (ccs): 300 Anesthesia: 1% Lidocaine Suture: Prolene Suture Size: 5-0 Number of Sutures: 5 Layer Closure?: 1 Number Deep Layer Sutures: 0 Progress Laceration to the left lateral eyebrow was anesthetized with a total of 5 mL of 1% lidocaine without epinephrine. Wound then irrigated with chlorhexidine/saline solution and multiple small pieces of gravel irrigated out from it. Wound was then closed loosely with 5 simple interrupted sutures size 5-0 Prolene. Progress/Results/Core Measures Suspected Sepsis SIRS Temperature: Pulse: Respiratory Rate: Laboratory Tests 01/03/20 15:56: White Blood Count 5.9 Blood Pressure / Mean: Laboratory Tests 01/03/20 15:56: Creatinine 1.36H, Platelet Count 173, Total Bilirubin 0.8 Results/Orders Lab Results Laboratory Tests Test 01/03/20 15:56 Range/Units White Blood Count 5.9 4.3-11.0 10^3/uL Red Blood Count 3.75 L 4.35-5.85 10^6/uL Hemoglobin 11.0 L 13.3-17.7 G/DL Hematocrit 33 L 40-54 % Mean Corpuscular Volume 89 80-99 FL Mean Corpuscular Hemoglobin 29 25-34 PG Mean Corpuscular Hemoglobin Concent 33 32-36 G/DL Red Cell Distribution Width 14.8 H 10.0-14.5 % Platelet Count 173 130-400 10^3/uL Mean Platelet Volume 9.7 7.4-10.4 FL Neutrophils (%) (Auto) 67 42-75 % Lymphocytes (%) (Auto) 17 12-44 % Monocytes (%) (Auto) 11 0-12 % Eosinophils (%) (Auto) 4 0-10 % Basophils (%) (Auto) 0 0-10 % Neutrophils # (Auto) 4.0 1.8-7.8 X 10^3 Lymphocytes # (Auto) 1.0 1.0-4.0 X 10^3 Monocytes # (Auto) 0.7 0.0-1.0 X 10^3 Eosinophils # (Auto) 0.2 0.0-0.3 10^3/uL Basophils # (Auto) 0.0 0.0-0.1 10^3/uL Sodium Level 140 135-145 MMOL/L Potassium Level 3.7 3.6-5.0 MMOL/L Chloride Level 111 H 98-107 MMOL/L Carbon Dioxide Level 18 L 21-32 MMOL/L Anion Gap 11 5-14 MMOL/L Blood Urea Nitrogen 34 H 7-18 MG/DL Creatinine 1.36 H 0.60-1.30 MG/DL Estimat Glomerular Filtration Rate 50 BUN/Creatinine Ratio 25 Glucose Level 132 H 70-105 MG/DL Calcium Level 8.2 L 8.5-10.1 MG/DL Corrected Calcium 8.6 8.5-10.1 MG/DL Total Bilirubin 0.8 0.1-1.0 MG/DL Aspartate Amino Transf (AST/SGOT) 21 5-34 U/L Alanine Aminotransferase (ALT/SGPT) 19 0-55 U/L Alkaline Phosphatase 62 40-136 U/L Troponin I < 0.028 <0.028 NG/ML B-Type Natriuretic Peptide 102.1 H <100.0 PG/ML Total Protein 5.8 L 6.4-8.2 GM/DL Albumin 3.5 3.2-4.5 GM/DL My Orders Orders - GLORIA HILL MECHANOTHERAPIST Ct Head/Cervical Spine Wo (01/03/20 15:46) Chest 1 View, Ap/Pa Only (01/03/20 15:46) BNP (01/03/20 15:46) Cbc With Automated Diff (01/03/20 15:46) Comprehensive Metabolic Panel (01/03/20 15:46) Troponin I (01/03/20 15:46) Dipht,Pertuss(Acell),Tet Adult (Boostrix (01/03/20 16:00) Cephalexin Capsule (Keflex Capsule) (01/03/20 16:00) Lidocaine 1% Inj 20 Ml (Xylocaine 1% Inj (01/03/20 16:00) Ns Iv 500 Ml (Sodium Chloride 0.9%) (01/03/20 16:45) Medications Given in ED Vital Signs/I&O 01/04/20 00:00 Intake Total 1000 ml Balance 1000 ml Capillary Refill : Departure Communication (Admissions) 1645-still mentating well alert and oriented with stable vital signs. Very talkative and well-appearing. Voices no complaints. States that he is ready to go home and get back to work. EMS gave 1 L of IV fluids in route to the hospital. I will give an additional 500 mL of fluids here. Impression Primary Impression: Heat exhaustion Qualified Codes: T67.5XXA - Heat exhaustion, unspecified, initial encounter Additional Impressions: Syncope Qualified Codes: R55 - Syncope and collapse Eyebrow laceration Qualified Codes: S01.112A - Laceration without foreign body of left eyelid and periocular area, initial encounter Disposition: HOME, SELF-CARE Condition: Improved Departure-Patient Inst. Decision time for Depature: 16:35 Referrals: BEVERLEY YOUNGER MD (PCP/Family) Primary Care Physician Patient Instructions: Heat Exhaustion and Heat Stroke (DC), Laceration Repair With Stitches (DC), Syncope (Fainting) (DC) Add. Discharge Instructions: 1. Return to ER to have the stitches removed in about 5-7 days. Take the antibiotics as directed. Return to ER for any severe headache, confusion, vomiting or other concerns. All discharge instructions reviewed with patient and/or family. Voiced understanding. Scripts Cephalexin (Cephalexin) 500 Mg Tablet 500 MG PO QID, #20 TAB 0 Refills Prov: GLORIA HILL APRN 01/03/20 Copy Copies To 1: BEVERLEY YOUNGER MD, PETER J APRN Jan 03, 2020 15:53
[2020-01-03] MEDS ORDERED: LIDOCAINE 1% INJ 20 ML 20 ML VIAL INJ ONE (16:00)
[2020-01-03] MEDS ORDERED: TETANUS,DIPTH,PERTUSS P/F (BOOSTRIX) 0.5 ML VIAL IM ONE (16:00)
[2020-01-03] MEDS ORDERED: CEPHALEXIN 250 MG (KEFLEX) CAP PO ONE (16:00)
[2020-01-03 16:02] LABS: BASOPHILS % (AUTO) 0 % (0-10); EOSINOPHILS # (AUTO) 0.2 10^3/uL (0.0-0.3); EOSINOPHILS % (AUTO) 4 % (0-10); HEMATOCRIT 33 % (40-54); LYMPHOCYTES % (AUTO) 17 % (12-44); MEAN CORPUSCULAR HEMOGLOBIN 29 PG (25-34); MEAN CORPUSCULAR HGB CONC 33 G/DL (32-36); MEAN CORPUSCULAR VOLUME 89 FL (80-99); MEAN PLATELET VOLUME 9.7 FL (7.4-10.4); MONOCYTES # (AUTO) 0.7 X 10^3 (0.0-1.0); MONOCYTES % (AUTO) 11 % (0-12); NEUTROPHILS % (AUTO) 67 % (42-75); PLATELET COUNT 173 10^3/uL (130-400); RED CELL DISTRIBUTION WIDTH 14.8 % (10.0-14.5); WHITE BLOOD COUNT 5.9 10^3/uL (4.3-11.0)
[2020-01-03 16:13] LABS: ALBUMIN 3.5 GM/DL (3.2-4.5); CHLORIDE 111 MMOL/L (98-107); POTASSIUM 3.7 MMOL/L (3.6-5.0); SODIUM 140 MMOL/L (135-145)
[2020-01-03 16:14] LABS: CALCIUM 8.2 MG/DL (8.5-10.1)
[2020-01-03 16:15] LABS: GLUCOSE 132 MG/DL (70-105); TOTAL PROTEIN 5.8 GM/DL (6.4-8.2)
[2020-01-03 16:16] LABS: CARBON DIOXIDE 18 MMOL/L (21-32)
[2020-01-03 16:17] LABS: BILIRUBIN,TOTAL 0.8 MG/DL (0.1-1.0)
[2020-01-03 16:19] LABS: ALKALINE PHOSPHATASE 62 U/L (40-136); CREATININE SERUM 1.36 MG/DL (0.60-1.30); GFR ESTIMATED 50
[2020-01-03 16:20] LABS: BUN/CREATININE RATIO 25
[2020-01-03 16:22] LABS: ALANINE AMINOTRANSFERASE 19 U/L (0-55)
[2020-01-03] MEDS ORDERED: CEPH500T PO (16:36)
--- NOTE | 2020-01-03 16:36 | Diagnostic Imaging Report ---
INDICATION: Fell from tailgate. Syncopal episode. Fell to the ground. EXAMINATION: Chest, 01/03/2020. COMPARISON: 06/23/2019. FINDINGS: The heart is prominent. Pulmonary vasculature is slightly prominent as well as left-sided pacemaker stable. Sternotomy wires and mediastinal clips are noted and unchanged. There is no pneumothorax. Vague density in the peripheral right lower lung is noted and could be caused by superimposed structures. A two-view follow-up chest non-emergently would be recommended to assure resolution. The remaining lung clear. No pneumothorax. No effusion. No displaced fracture is appreciated. IMPRESSION: 1. Vague density in the right lung base, see above discussion. 2. Cardiomegaly with other findings as above. Dictated by: Dictated on workstation # [id number]
[2020-01-03] MEDS ORDERED: NS IV 500 ML 500 ML IV SCH (16:45)
--- NOTE | 2020-01-03 17:01 | Diagnostic Imaging Report ---
INDICATION: Fell from tailgate. Syncopal episode. EXAMINATION: CT brain and CT cervical spine, 01/03/2020. COMPARISON: CT brain dated 10/04/2018. FINDINGS: CT head: Chronic ischemic disease is seen in a periventricular distribution. No acute hemorrhage is seen. No mass, mass effect or midline shift. No hydrocephalus. A few scattered calcifications are stable from previous imaging. The calvarium appears intact. The paranasal sinuses and mastoid air cells are unremarkable. IMPRESSION: Diffuse chronic disease with no acute process appreciated. CT cervical spine: Alignment of the spine is preserved. No subluxation Is appreciated. Intervertebral disc space narrowing at multiple levels similar to the CT cervical region obtained during a CT angiogram from 05/18/2018 multilevel facet hypertrophy noted with areas of fusion, bilaterally, from C2-C3 through C3-C4. No acute abnormality appreciated. Visualized lung apices are clear. Prevertebral soft tissues are unremarkable. IMPRESSION: Multilevel diffuse degenerative disease with no acute osseous abnormality. Dictated by: Dictated on workstation # [id number]
[2020-01-03 17:19] VITALS: BP 121/96
== END 2020-01-03 17:19 | disposition home or self-care (01) ==
LOC: EDUNIT# 15:33 → ER 15:34
DX: T67.5XXA Heat exhaustion, unspecified, initial encounter (principal); S01.112A Laceration without foreign body of left eyelid and periocular area, initial encounter; R55 Syncope and collapse; I10 Essential (primary) hypertension; I25.10 Atherosclerotic heart disease of native coronary artery without angina pectoris; E78.00 Pure hypercholesterolemia, unspecified; I25.2 Old myocardial infarction; Z86.73 Personal history of transient ischemic attack (TIA), and cerebral infarction without residual deficits; Z85.828 Personal history of other malignant neoplasm of skin; Z88.8 Allergy status to other drugs, medicaments and biological substances; Z23 Encounter for immunization; Z79.82 Long term (current) use of aspirin; Z79.02 Long term (current) use of antithrombotics/antiplatelets; Z87.891 Personal history of nicotine dependence; Z95.1 Presence of aortocoronary bypass graft; Z95.5 Presence of coronary angioplasty implant and graft; Z85.46 Personal history of malignant neoplasm of prostate; Z80.1 Family history of malignant neoplasm of trachea, bronchus and lung; Z80.8 Family history of malignant neoplasm of other organs or systems; Z82.49 Family history of ischemic heart disease and other diseases of the circulatory system; X30.XXXA Exposure to excessive natural heat, initial encounter; W17.89XA Other fall from one level to another, initial encounter
CPT/HCPCS: 12013; 36415; 70450; 71045; 72125; 80053; 83880; 84484; 85025; 90715

== ENCOUNTER 2020-01-08 11:17 | Emergency (ER) | payer MEDICARE ==
[~2020-01-08 11:17] MED LIST changes: +CEPH500T PO
[2020-01-08 11:26] VITALS: BP 158/82
== END 2020-01-08 11:35 | disposition home or self-care (01) ==
LOC: EDUNIT# 11:17 → ER 11:19
DX: Z48.02 Encounter for removal of sutures (principal)
CPT/HCPCS: 99281

== ENCOUNTER 2020-05-26 13:55 | Emergency (ER) | payer MEDICARE ==
[~2020-05-26] VITALS: Ht 177 cm; Wt 84.0 kg
[~2020-05-26 13:55] MED LIST changes: +ASPI-1238 PO; -ASPI-983 PO; +MIRT-96 PO; -MIRT15TA PO
--- NOTE | 2020-05-26 14:48 | ED Cardiac General ---
History of Present Illness General Chief Complaint: Cardiac/General Problems Stated Complaint: H BP Nursing Triage Note: PT AMB TO TRIAGE, PT CO OF HAVING COLD SENSATION GO THRU BODY WHEN CUTTING WOOD. PT STATES TOOK BP AND WAS VERY ELEVATED. CALLED DR FERRER OFFICE AND WAS TOLD TO COME TO ED History of Present Illness Date Seen by Provider: May 26, 2020 Time Seen by Provider: 14:20 Initial Comments 84 old male presents for hypertension. He was outside in the cold air using a chainsaw, when he began to feel like his blood all went to his chest, then back out to his extremities. He denies chest pain. 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 Takes aspirin 81 mg daily, losartan and metoprolol. He denies headache, nausea or vomiting, shortness of air, or any symptoms at this time. He did go inside and take his blood pressure which was 210/120. Upon presentation here 180/90. Patient reports eating breakfast at approximately 11:00 this morning. He drinks water throughout the day. Timing/Duration: 1-3 hours NTG SL DE ICER: No ASA po DE ICER: Yes Associated Systoms: Denies Symptoms Allergies and Home Medications Allergies Coded Allergies: nitroglycerin (Unverified Allergy, Severe, SYNCOPE, 10/23/19) Qmkanxb-Wem-Kmn Reductase Inhibitor (Verified Adverse Reaction, Mild, JOINT PAIN, 10/23/19) Home Medications Aspirin 81 Mg Tablet.dr, 81 MG PO DAILY, (Reported) Clopidogrel Bisulfate 75 Mg Tablet, 75 MG PO DAILY, (Reported) Escitalopram Oxalate 20 Mg Tablet, 20 MG PO DAILY, (Reported) Ezetimibe 10 Mg Tablet, 10 MG PO DAILY, (Reported) Gluc/Augustine-MSM#2/C/D3/Juan M/Born 1 Each Tablet, 1 EACH PO DAILY, (Reported) Lactobacillus Acidophilus 1 Each Capsule, 1 EACH PO BID, (Reported) Losartan Potassium 50 Mg Tablet, 50 MG PO DAILY, (Reported) Metoprolol Tartrate 50 Mg Tablet, 50 MG PO BID, (Reported) Mirtazapine 15 Mg Tablet, 15 MG PO HS, (Reported) Multivit-Min/FA/Lycopene/Lut 1 Each Tablet, 1 EACH PO DAILY, (Reported) Patient Home Medication List Home Medication List Reviewed: Yes Review of Systems Review of Systems Constitutional: no symptoms reported, see HPI EENTM: No Symptoms Reported, See HPI Respiratory: No Symptoms Reported, See HPI; Denies Shortness of Air, Denies SOA With Exertion Cardiovascular: No Symptoms Reported, See HPI; Denies Chest Pain, Denies Edema, Denies Lightheadedness, Denies Palpitations, Denies Syncope Gastrointestinal: No Symptoms Reported, See HPI Genitourinary: No Symptoms Reported, See HPI Musculoskeletal: no symptoms reported, see HPI Skin: no symptoms reported, see HPI Psychiatric/Neurological: No Symptoms Reported, See HPI Endocrine: No Symptoms Reported, See HPI All Other Systems Reviewed Negative Unless Noted: Yes Past Atufrgi-Fffwka-Tkvjof Hx Past Med/Social Hx: Reviewed Nursing Past Med/Soc Hx Patient Social History Alcohol Use: Denies Use Number of Drinks Today: Alcohol Beverage of Choice: Wine Recreational Drug Use: No Smoking Status: Former Smoker Type Used: Cigarettes Former Smoker, Quit: October 22, 1994 2nd Hand Smoke Exposure: Yes Recent Foreign Travel: No Contact w/Someone Who Travel: No Recent Infectious Disease Expo: No Recent Hopitalizations: No Physical Abuse: No Sexual Abuse: No Immunizations Up To Date Tetanus Booster (TDap): Unknown PED Vaccines UTD: No Seasonal Allergies Seasonal Allergies: No Past Medical History Surgeries: Yes (L THR) Cardiac, CABG, Coronary Stent, Gallbladder, Orthopedic, Pacemaker, Transurethral Resection Respiratory: Yes (MILD DYSPNEA ON EXERTION) Asthma Currently Using CPAP: No Currently Using BIPAP: No Cardiac: Yes (CABG 1997, STENT 2014) Coronary Artery Disease, Heart Attack, High Cholesterol, Hypertension Neurological: Yes (TIA 09/2018--NO RESIDUAL ; CVA 2017--NO RESIDUAL) Stroke, TIA Reproductive Disorders: Yes (E.D.) Sexually Transmitted Disease: No HIV/AIDS: No Genitourinary: Yes (TURP) Benign Prostatic Hyperpl, Prostate Problems Gastrointestinal: No Gall Bladder Disease Musculoskeletal: Yes Arthritis, Fractures Endocrine: No HEENT: Yes (DENTURES) Cataract Loss of Vision: Denies Hearing Impairment: Hard of Hearing Cancer: Yes Prostate, Skin Did You Recieve Any Treatments: Yes What Type of Treatment Did You: Radiation, Surgical Intervention Psychosocial: No Integumentary: No Blood Disorders: No Adverse Reaction/Blood Tranf: Yes (HAS HAD BLOOD WITH NO REACTION) Family Medical History Alzheimer's disease 19 FATHER, Onset:60 years & older Cardiovascular disease 19 FATHER, Onset:15's - 20 (Was told that he had a "Leaky Heart") FH: brain cancer 19 MOTHER, Onset:60 years & older G8 BROTHER, Onset:50's - 60 FH: lung cancer 19 MOTHER, Onset:60 years & older FH: sudden G8 BROTHER, Onset:Childhood (Was ran over by a car at the age of 6.) Heart Disease, Hypertension Physical Exam Vital Signs Vital Signs - First Documented 05/26/20 13:55 Temp 36.8 Pulse 78 Resp 20 B/P (MAP) 181/94 (123) Pulse Ox 96 Capillary Refill : Less Than 3 Seconds Height, Weight, BMI Height: 5'9.00" Weight: 180lbs. 4.0oz. [id number]; 26.00 BMI Method:Estimated General Appearance: No Apparent Distress, WD/WN HEENT: PERRL/EOMI, TMs Normal, Normal ENT Inspection, Pharynx Normal Neck: Full Range of Motion, Normal Inspection, Non Tender, Supple Respiratory: Chest Non Tender, Lungs Clear, Normal Breath Sounds Cardiovascular: Regular Rate, Rhythm, No Edema, No JVD, No Murmur, Normal Peripheral Pulses Gastrointestinal: Normal Bowel Sounds, Non Tender, Soft Extremity: Normal Capillary Refill, Normal Inspection, Normal Range of Motion Neurologic/Psychiatric: Alert, Oriented x3, No Motor/Sensory Deficits, Normal Mood/Affect Skin: Normal Color, Warm/Dry Procedures/Interventions Suture Size: 5-0 Progress/Results/Core Measures Results/Orders Lab Results Laboratory Tests Test 05/26/20 14:40 Range/Units White Blood Count 9.9 4.3-11.0 10^3/uL Red Blood Count 4.52 4.30-5.52 10^6/uL Hemoglobin 13.4 13.3-17.7 g/dL Hematocrit 41 40-54 % Mean Corpuscular Volume 92 80-99 fL Mean Corpuscular Hemoglobin 30 25-34 pg Mean Corpuscular Hemoglobin Concent 32 32-36 g/dL Red Cell Distribution Width 13.7 10.0-14.5 % Platelet Count 183 130-400 10^3/uL Mean Platelet Volume 9.3 9.0-12.2 fL Immature Granulocyte % (Auto) 0 % Neutrophils (%) (Auto) 80 H 42-75 % Lymphocytes (%) (Auto) 8 L 12-44 % Monocytes (%) (Auto) 9 0-12 % Eosinophils (%) (Auto) 3 0-10 % Basophils (%) (Auto) 0 0-10 % Neutrophils # (Auto) 8.0 H 1.8-7.8 X 10^3 Lymphocytes # (Auto) 0.8 L 1.0-4.0 X 10^3 Monocytes # (Auto) 0.9 0.0-1.0 X 10^3 Eosinophils # (Auto) 0.3 0.0-0.3 10^3/uL Basophils # (Auto) 0.0 0.0-0.1 10^3/uL Immature Granulocyte # (Auto) 0.0 0.0-0.1 10^3/uL Neutrophils % (Manual) 86 % Lymphocytes % (Manual) 7 % Monocytes % (Manual) 4 % Eosinophils % (Manual) 3 % Blood Morphology Comment NORMAL Prothrombin Time 14.0 12.2-14.7 SEC INR Comment 1.0 0.8-1.4 Activated Partial Thromboplast Time 30 24-35 SEC Sodium Level 136 135-145 MMOL/L Potassium Level 3.9 3.6-5.0 MMOL/L Chloride Level 100 98-107 MMOL/L Carbon Dioxide Level 25 21-32 MMOL/L Anion Gap 11 5-14 MMOL/L Blood Urea Nitrogen 23 H 7-18 MG/DL Creatinine 1.14 0.60-1.30 MG/DL Estimat Glomerular Filtration Rate > 60 BUN/Creatinine Ratio 20 Glucose Level 95 70-105 MG/DL Calcium Level 8.8 8.5-10.1 MG/DL Corrected Calcium 8.8 8.5-10.1 MG/DL Magnesium Level 1.8 1.6-2.4 MG/DL Total Bilirubin 0.8 0.1-1.0 MG/DL Aspartate Amino Transf (AST/SGOT) 23 5-34 U/L Alanine Aminotransferase (ALT/SGPT) 24 0-55 U/L Alkaline Phosphatase 73 40-136 U/L Myoglobin 159.3 H 10.0-92.0 NG/ML Troponin I < 0.028 <0.028 NG/ML Total Protein 7.0 6.4-8.2 GM/DL Albumin 4.0 3.2-4.5 GM/DL My Orders Orders - NOE MCCLURE Ekg Tracing (05/26/20 14:29) Cbc With Automated Diff (05/26/20 14:29) Magnesium (05/26/20 14:29) Comprehensive Metabolic Panel (05/26/20 14:29) Myoglobin Serum (05/26/20 14:29) Protime With Inr (05/26/20 14:29) Partial Thromboplastin Time (05/26/20 14:29) Troponin I (05/26/20 14:29) Manual Differential (05/26/20 14:40) Vital Signs/I&O 05/26/20 05/26/20 13:55 16:21 Temp 36.8 Pulse 78 61 Resp 20 20 B/P (MAP) 181/94 (123) 153/87 (123) Pulse Ox 96 96 Blood Pressure Mean: 123 Progress Progress Note : Time: 14:20 Progress Note Patient seen and evaluated, his second blood pressure was 150/80. Will obtain l abs and EKG. 1500 patient has remained free of chest pain. Recent blood pressure was 150/85. Denies any complaints at this time. 1545 blood pressure 144/72 labs all essentially normal. Patient has no complaints. Will discuss with Dr. Ferrer. [address] Ferrre no further recommendations at this time. Discharge instructions and return precautions reviewed with the patient. All questions answered. Initial ECG Impression Date: May 26, 2020 Initial ECG Impression Time: 14:31 Initial ECG Rate: 68 Initial ECG Intervals atrial paced rhythm, incomplete left bundle branch block. CA 224, QRSD 118, QT 431, QTc 459. [place] QRS -48, T 49. Initial ECG Comparisson: Unchanged Departure Impression Primary Impression: Hypertensive heart disease Qualified Codes: I11.9 - Hypertensive heart disease without heart failure Disposition: 01 HOME, SELF-CARE Condition: Improved Departure-Patient Inst. Decision time for Depature: 15:40 Referrals: BEVERLEY YOUNGER MD (PCP/Family) Primary Care Physician NACHO FERRER MD Patient Instructions: High Blood Pressure (DC) Add. Discharge Instructions: Continue to take your medication as prescribed. Follow-up with Dr. Ferrer if symptoms are not improving or worsen. Return to the emergency department for new, urgent healthcare needs. Slowly resume activities as comfortable, do not over exert yourself, especially when cold outside All discharge instructions reviewed with patient and/or family. Voiced und erstanding. NOE MCCLURE May 26, 2020 14:48
[2020-05-26 14:56] LABS: BASOPHILS % (AUTO) 0 % (0-10); EOSINOPHILS # (AUTO) 0.3 10^3/uL (0.0-0.3); EOSINOPHILS % (AUTO) 3 % (0-10); HEMATOCRIT 41 % (40-54); HEMOGLOBIN 13.4 g/dL (13.3-17.7); LYMPHOCYTES # (AUTO) 0.8 X 10^3 (1.0-4.0); LYMPHOCYTES % (AUTO) 8 % (12-44); MEAN CORPUSCULAR HEMOGLOBIN 30 pg (25-34); MEAN CORPUSCULAR HGB CONC 32 g/dL (32-36); MEAN CORPUSCULAR VOLUME 92 fL (80-99); MEAN PLATELET VOLUME 9.3 fL (9.0-12.2); MONOCYTES # (AUTO) 0.9 X 10^3 (0.0-1.0); MONOCYTES % (AUTO) 9 % (0-12); NEUTROPHILS % (AUTO) 80 % (42-75); PLATELET COUNT 183 10^3/uL (130-400); WHITE BLOOD COUNT 9.9 10^3/uL (4.3-11.0)
[2020-05-26 15:02] LABS: CHLORIDE 100 MMOL/L (98-107); POTASSIUM 3.9 MMOL/L (3.6-5.0); SODIUM 136 MMOL/L (135-145)
[2020-05-26 15:03] LABS: CALCIUM 8.8 MG/DL (8.5-10.1)
[2020-05-26 15:04] LABS: GLUCOSE 95 MG/DL (70-105)
[2020-05-26 15:05] LABS: CARBON DIOXIDE 25 MMOL/L (21-32)
[2020-05-26 15:06] LABS: BILIRUBIN,TOTAL 0.8 MG/DL (0.1-1.0)
[2020-05-26 15:08] LABS: ALKALINE PHOSPHATASE 73 U/L (40-136); CREATININE SERUM 1.14 MG/DL (0.60-1.30); GFR ESTIMATED > 60
[2020-05-26 15:09] LABS: BUN/CREATININE RATIO 20; EOSINOPHILS % (MANUAL) 3 %; LYMPHOCYTES % (MANUAL) 7 %; MONOCYTES % (MANUAL) 4 %; NEUTROPHILS % (MANUAL) 86 %; RBC MORPH NORMAL
[2020-05-26 15:11] LABS: ALANINE AMINOTRANSFERASE 24 U/L (0-55); MAGNESIUM 1.8 MG/DL (1.6-2.4)
[2020-05-26 16:21] VITALS: BP 153/87
== END 2020-05-26 16:20 | disposition home or self-care (01) ==
LOC: EDUNIT# 13:55 → ER 13:57
DX: I11.9 Hypertensive heart disease without heart failure (principal); E78.00 Pure hypercholesterolemia, unspecified; I25.2 Old myocardial infarction; Z82.49 Family history of ischemic heart disease and other diseases of the circulatory system; Z80.1 Family history of malignant neoplasm of trachea, bronchus and lung; Z80.8 Family history of malignant neoplasm of other organs or systems; Z85.46 Personal history of malignant neoplasm of prostate; Z85.828 Personal history of other malignant neoplasm of skin; Z86.73 Personal history of transient ischemic attack (TIA), and cerebral infarction without residual deficits; Z95.0 Presence of cardiac pacemaker; Z95.5 Presence of coronary angioplasty implant and graft; Z95.1 Presence of aortocoronary bypass graft; Z87.891 Personal history of nicotine dependence; Z88.8 Allergy status to other drugs, medicaments and biological substances; Z79.82 Long term (current) use of aspirin
CPT/HCPCS: 36415; 80053; 83735; 83874; 84484; 85007; 85027; 85610; 85730; 93005

== ENCOUNTER → 2020-09-02 | Outpatient (CLI) | payer MEDICARE ==
[~2020-09-02] MED LIST changes: +AMLO-250 PO; +ESCI-2 PO; -ESCI10TA55 PO; +ESCI20TA39 PO; -ESCI20TA45 PO
== END ==
LOC: LAB 12:51
PROVIDERS: ATTEND Nurse Practitioner Family
DX: I10 Essential (primary) hypertension (principal); I25.2 Old myocardial infarction; R53.83 Other fatigue; R53.1 Weakness
CPT/HCPCS: 36415; 82553; 84484; 85379

== ENCOUNTER 2020-09-03 13:01 | Emergency (ER) | payer MEDICARE ==
[~2020-09-03] VITALS: Ht 177 cm; Wt 88.0 kg
[~2020-09-03 13:01] MED LIST changes: -AMLO-250 PO
[2020-09-03 13:37] LABS: BASOPHILS % (AUTO) 1 % (0-10); EOSINOPHILS # (AUTO) 0.4 10^3/uL (0.0-0.3); EOSINOPHILS % (AUTO) 7 % (0-10); HEMATOCRIT 39 % (40-54); HEMOGLOBIN 12.9 g/dL (13.3-17.7); LYMPHOCYTES # (AUTO) 1.1 10^3/uL (1.0-4.0); LYMPHOCYTES % (AUTO) 18 % (12-44); MEAN CORPUSCULAR HEMOGLOBIN 30 pg (25-34); MEAN CORPUSCULAR HGB CONC 33 g/dL (32-36); MEAN CORPUSCULAR VOLUME 91 fL (80-99); MEAN PLATELET VOLUME 9.8 fL (9.0-12.2); MONOCYTES # (AUTO) 0.8 10^3/uL (0.0-1.0); MONOCYTES % (AUTO) 13 % (0-12); NEUTROPHILS % (AUTO) 62 % (42-75); PLATELET COUNT 191 10^3/uL (130-400); WHITE BLOOD COUNT 6.4 10^3/uL (4.3-11.0)
[2020-09-03 13:38] LABS: ALBUMIN 3.9 GM/DL (3.2-4.5); CHLORIDE 104 MMOL/L (98-107); SODIUM 138 MMOL/L (135-145)
[2020-09-03 13:39] LABS: CALCIUM 8.8 MG/DL (8.5-10.1)
[2020-09-03 13:40] LABS: GLUCOSE 99 MG/DL (70-105); TOTAL PROTEIN 6.8 GM/DL (6.4-8.2)
[2020-09-03 13:42] LABS: BILIRUBIN,TOTAL 0.5 MG/DL (0.1-1.0); CARBON DIOXIDE 23 MMOL/L (21-32)
[2020-09-03 13:44] LABS: ALKALINE PHOSPHATASE 79 U/L (40-136); CREATININE SERUM 1.15 MG/DL (0.60-1.30); GFR ESTIMATED > 60
[2020-09-03 13:45] LABS: BUN/CREATININE RATIO 22
[2020-09-03 13:47] LABS: ALANINE AMINOTRANSFERASE 22 U/L (0-55)
--- NOTE | 2020-09-03 13:47 | ED Cardiac General ---
History of Present Illness General Chief Complaint: General Problems/Pain Stated Complaint: ELEVATED BP Source: patient Exam Limitations: no limitations (KATHY ESPAÑA,) History of Present Illness Date Seen by Provider: Sep 03, 2020 Time Seen by Provider: 13:42 Initial Comments Mr. Haile is an 85-year-old male who presented to the [facility] ED for elevated blood pressure. He says he has been having high pressures for about a week and recently went to Urgent Care because of this. Labs were drawn both at Urgent Care and at [facility] on 09/02. The patient was not having better pressures and decided to present to the ED after also having some blurred vision. He says he took an additional metoprolol this am and at noon to try to combat the elevated pressures. He denies any headache, one-sided weakness, chest pain, shortness of breath, abdominal pain, nausea, vomiting, difficulties with urinating. His blurred vision has resolved now. By the time he presented to the ED, blood pressures were 138/90. Timing/Duration: 1 week Severity: mild (KATHY ESPAÑA,) Timing/Duration: 1 week, changing over time NTG SL MARKET RISK ANALYST: No ASA po MARKET RISK ANALYST: Yes Associated Systoms: No Cough, No Fever/Chills, No Nausea/Vomiting, No Shortness of Air, No Weakness (ANUJ ORDONEZ MD) Allergies and Home Medications Allergies Coded Allergies: nitroglycerin (Unverified Allergy, Severe, SYNCOPE, 10/23/19) Omxjwoe-Ahe-Wtg Reductase Inhibitor (Verified Adverse Reaction, Mild, JOINT PAIN, 10/23/19) Home Medications Aspirin 81 Mg Tablet.dr, 81 MG PO DAILY, (Reported) Clopidogrel Bisulfate 75 Mg Tablet, 75 MG PO DAILY, (Reported) Escitalopram Oxalate 20 Mg Tablet, 20 MG PO DAILY, (Reported) Ezetimibe 10 Mg Tablet, 10 MG PO DAILY, (Reported) Gluc/Augustine-MSM#2/C/D3/Juan M/Born 1 Each Tablet, 1 EACH PO DAILY, (Reported) Lactobacillus Acidophilus 1 Each Capsule, 1 EACH PO BID, (Reported) Losartan Potassium 50 Mg Tablet, 50 MG PO DAILY, (Reported) Metoprolol Tartrate 50 Mg Tablet, 50 MG PO BID, (Reported) Mirtazapine 15 Mg Tablet, 15 MG PO HS, (Reported) Multivit-Min/FA/Lycopene/Lut 1 Each Tablet, 1 EACH PO DAILY, (Reported) Patient Home Medication List Home Medication List Reviewed: Yes (KATHY ESPAÑA,) Home Medication List Reviewed: Yes (ANUJ ORDONEZ MD) Review of Systems Review of Systems Constitutional: No diaphoresis; weakness EENTM: Blurred Vision; No Throat Swelling Respiratory: Denies Cough, Denies Shortness of Air Cardiovascular: Denies Chest Pain, Denies Irregular Heart Rate Gastrointestinal: Denies Nausea, Denies Vomiting Genitourinary: Denies Burning, Denies Hematuria Musculoskeletal: No joint pain, No muscle pain Skin: No dryness, No rash Psychiatric/Neurological: Denies Headache, Denies Numbness Endocrine: No Symptoms Reported Hematologic/Lymphatic: No Symptoms Reported (KATHY ESPAÑA,) Respiratory: Denies Shortness of Air, Denies Wheezing Cardiovascular: Denies Edema, Denies Palpitations (ANUJ ORDONEZ MD) All Other Systems Reviewed Negative Unless Noted: Yes (ANUJ ORDONEZ MD) Past Rstcamf-Jfezac-Npcrif Hx Past Med/Social Hx: Reviewed Nursing Past Med/Soc Hx (ANUJ ORDONEZ MD) Patient Social History Alcohol Use: Rarely Uses Alcohol Beverage of Choice: Wine Smoking Status: Former Smoker Type Used: Cigarettes Former Smoker, Quit: October 22, 1994 2nd Hand Smoke Exposure: Yes Recent Hopitalizations: No (KATHY ESPAÑA,) Immunizations Up To Date Tetanus Booster (TDap): Unknown PED Vaccines UTD: No (KATHY ESPAÑA,) Seasonal Allergies Seasonal Allergies: No (KATHY ESPAÑA,) Past Medical History Surgeries: Yes (L THR) Cardiac, CABG, Coronary Stent, Gallbladder, Orthopedic, Pacemaker, Transurethral Resection Respiratory: Yes (MILD DYSPNEA ON EXERTION) Asthma Currently Using CPAP: No Currently Using BIPAP: No Cardiac: Yes (CABG 1997, STENT 2014) Coronary Artery Disease, Heart Attack, High Cholesterol, Hypertension Neurological: Yes (TIA 09/2018--NO RESIDUAL ; CVA 2017--NO RESIDUAL) Stroke, TIA Reproductive Disorders: Yes (E.D.) Sexually Transmitted Disease: No HIV/AIDS: No Genitourinary: Yes (TURP) Benign Prostatic Hyperpl, Prostate Problems Gastrointestinal: No Gall Bladder Disease Musculoskeletal: Yes Arthritis, Fractures Endocrine: No HEENT: Yes (DENTURES) Cataract Loss of Vision: Denies Hearing Impairment: Hard of Hearing Cancer: Yes Prostate, Skin Did You Recieve Any Treatments: Yes What Type of Treatment Did You: Radiation, Surgical Intervention Psychosocial: No Integumentary: No Blood Disorders: No Adverse Reaction/Blood Tranf: Yes (HAS HAD BLOOD WITH NO REACTION) (KATHY ESPAÑA,) Family Medical History Reviewed Nursing Family Hx (ANUJ ORDONEZ MD) Alzheimer's disease 19 FATHER, Onset:60 years & older Cardiovascular disease 19 FATHER, Onset:15's - 20 (Was told that he had a "Leaky Heart") FH: brain cancer 19 MOTHER, Onset:60 years & older G8 BROTHER, Onset:50's - 60 FH: lung cancer 19 MOTHER, Onset:60 years & older FH: sudden G8 BROTHER, Onset:Childhood (Was ran over by a car at the age of 6.) Heart Disease, Hypertension (KATHY ESPAÑA,) Physical Exam Vital Signs Vital Signs - First Documented 09/03/20 13:10 Temp 35.6 Pulse 68 Resp 20 B/P (MAP) 138/78 (98) Pulse Ox 96 O2 Delivery Room Air (ANUJ ORDONEZ MD) Vital Signs Capillary Refill : (KATHY ESPAÑA,) Height, Weight, BMI Height: 5'9.00" Weight: 180lbs. 4.0oz. [id number]; 26.00 BMI Method:Estimated General Appearance: No Apparent Distress, WD/WN HEENT: PERRL/EOMI, Pharynx Normal Neck: Non Tender, Supple Respiratory: Lungs Clear, Normal Breath Sounds Cardiovascular: Regular Rate, Rhythm, No Murmur Gastrointestinal: Normal Bowel Sounds, Non Tender, Soft Extremity: Normal Capillary Refill, No Pedal Edema Neurologic/Psychiatric: Alert, Oriented x3, No Motor/Sensory Deficits Skin: Normal Color, Warm/Dry Lymphatic: No Adenopathy (KATHY ESPAÑA,) General Appearance: No Apparent Distress, WD/WN Respiratory: Lungs Clear, Normal Breath Sounds Cardiovascular: Regular Rate, Rhythm, No Murmur Gastrointestinal: Non Tender, Soft Neurologic/Psychiatric: Alert, Oriented x3 Skin: Normal Color, Warm/Dry (ANUJ ORDONEZ MD) Procedures/Interventions Suture Size: 5-0 (KATHY ESPAÑA,) Progress/Results/Core Measures Results/Orders Lab Results Laboratory Tests Test 09/03/20 13:24 Range/Units White Blood Count 6.4 4.3-11.0 10^3/uL Red Blood Count 4.27 L 4.30-5.52 10^6/uL Hemoglobin 12.9 L 13.3-17.7 g/dL Hematocrit 39 L 40-54 % Mean Corpuscular Volume 91 80-99 fL Mean Corpuscular Hemoglobin 30 25-34 pg Mean Corpuscular Hemoglobin Concent 33 32-36 g/dL Red Cell Distribution Width 14.3 10.0-14.5 % Platelet Count 191 130-400 10^3/uL Mean Platelet Volume 9.8 9.0-12.2 fL Immature Granulocyte % (Auto) 1 % Neutrophils (%) (Auto) 62 42-75 % Lymphocytes (%) (Auto) 18 12-44 % Monocytes (%) (Auto) 13 H 0-12 % Eosinophils (%) (Auto) 7 0-10 % Basophils (%) (Auto) 1 0-10 % Neutrophils # (Auto) 4.0 1.8-7.8 10^3/uL Lymphocytes # (Auto) 1.1 1.0-4.0 10^3/uL Monocytes # (Auto) 0.8 0.0-1.0 10^3/uL Eosinophils # (Auto) 0.4 H 0.0-0.3 10^3/uL Basophils # (Auto) 0.0 0.0-0.1 10^3/uL Immature Granulocyte # (Auto) 0.0 0.0-0.1 10^3/uL Sodium Level 138 135-145 MMOL/L Potassium Level 4.0 3.6-5.0 MMOL/L Chloride Level 104 98-107 MMOL/L Carbon Dioxide Level 23 21-32 MMOL/L Anion Gap 11 5-14 MMOL/L Blood Urea Nitrogen 25 H 7-18 MG/DL Creatinine 1.15 0.60-1.30 MG/DL Estimat Glomerular Filtration Rate > 60 BUN/Creatinine Ratio 22 Glucose Level 99 70-105 MG/DL Calcium Level 8.8 8.5-10.1 MG/DL Corrected Calcium 8.9 8.5-10.1 MG/DL Total Bilirubin 0.5 0.1-1.0 MG/DL Aspartate Amino Transf (AST/SGOT) 21 5-34 U/L Alanine Aminotransferase (ALT/SGPT) 22 0-55 U/L Alkaline Phosphatase 79 40-136 U/L Troponin I < 0.028 <0.028 NG/ML Total Protein 6.8 6.4-8.2 GM/DL Albumin 3.9 3.2-4.5 GM/DL (ANUJ ORDONEZ MD) My Orders Orders - ANUJ ORDONEZ MD Cbc With Automated Diff (09/03/20 13:26) Comprehensive Metabolic Panel (09/03/20 13:26) Troponin I (09/03/20 13:26) Ed Iv/Invasive Line Start (09/03/20 13:26) Ekg Tracing (09/03/20 13:26) (ANUJ ORDONEZ MD) Vital Signs/I&O 09/03/20 13:10 Temp 35.6 Pulse 68 Resp 20 B/P (MAP) 138/78 (98) Pulse Ox 96 O2 Delivery Room Air (ANUJ ORDONEZ MD) Progress Progress Note : Time: 13:46 Progress Note By the time patient arrived, blood pressures were down to 130s/90s. Will order repeat CBC, CMP, EKG, troponin. D-dimer from previous visit was 0.98. (KATHY ESPAÑA,) Progress Note : Progress Note I have seen and evaluated the patient and agree with above except as indicated. I directed the plan of care. Patient is here with uncontrolled hypertension although appears to be controlled with extra dose of metoprolol. He takes 100 mg of metoprolol twice daily and took an extra 50 mg tablet at noon. Blood pressure currently in better range. Evaluation as above. We will check basic labs and have reviewed labs from previous visit. Monitor patient. 1410: Blood pressure remains in the range of 130s over 80s and patient is without symptoms. I did discuss the case with Dr. Santana. We will add metoprolol 5 mg p.o. daily and have asked him to follow-up with Dr. Hampton, his primary anvil seating press operator. Patient feels comfortable with this plan. Discharged home with return precautions. Patient verbalized understanding instructions and agreement with plan. (ANUJ ORDONEZ MD) Initial ECG Impression Date: Sep 03, 2020 Initial ECG Impression Time: 13:18 Initial ECG Rate: 61 Comment Atrial paced rhythm with left axis deviation. No evidence of ST elevation CO. Q's noted in the inferior leads. Unchanged from previous 05/26/20. Interpreted by me. (ANUJ ORDONEZ MD) Departure Impression Primary Impression: Uncontrolled hypertension Disposition: 01 HOME, SELF-CARE Condition: Improved Departure-Patient Inst. Decision time for Depature: 14:17 (ANUJ ORDONEZ MD) Referrals: BEVERLEY YOUNGER MD (PCP/Family) Primary Care Physician Patient Instructions: High Blood Pressure (DC), High Blood Pressure Emergencies Add. Discharge Instructions: All discharge instructions reviewed with patient and/or family. Voiced understanding. Take medications as directed and start amlodipine 5 mg 1 tablet each night starting tonight. Follow-up with Dr. Hampton this week for recheck and further evaluation. Return for worse pain, chest pain, breathing problems, weakness, vision or balance problems, difficulty with speech or walking, blood pressure over 220/120 or other concerns as needed. If your blood pressure is over 180/110 then you may take an additional amlodipine once per day. Scripts Amlodipine Besylate (Amlodipine Besylate) 5 Mg Tablet 5 MG PO DAILY for 30 Days, #30 TAB 0 Refills Prov: ANUJ ORDONEZ MD 09/03/20 Copy Copies To 1: NACHO HAMPTON MD Copies To 2: BEVERLEY YOUNGER MDKATHY RIVERA, Sep 03, 2020 13:47 ANUJ ORDONEZ MD Sep 03, 2020 14:19
[2020-09-03] MEDS ORDERED: AMLO-250 PO (14:20)
[2020-09-03 15:00] VITALS: BP 136/74
== END 2020-09-03 15:02 | disposition home or self-care (01) ==
LOC: EDUNIT# 13:01 → ER 13:03
DX: I10 Essential (primary) hypertension (principal); I25.2 Old myocardial infarction; E78.00 Pure hypercholesterolemia, unspecified; Z88.8 Allergy status to other drugs, medicaments and biological substances; Z85.828 Personal history of other malignant neoplasm of skin; Z85.46 Personal history of malignant neoplasm of prostate; Z86.73 Personal history of transient ischemic attack (TIA), and cerebral infarction without residual deficits; Z95.1 Presence of aortocoronary bypass graft; Z95.5 Presence of coronary angioplasty implant and graft; Z95.0 Presence of cardiac pacemaker; Z87.891 Personal history of nicotine dependence; Z80.1 Family history of malignant neoplasm of trachea, bronchus and lung; Z79.82 Long term (current) use of aspirin
CPT/HCPCS: 36415; 80053; 84484; 85025; 93005

== ENCOUNTER 2021-03-17 17:19 | Observation (INO) | payer MEDICARE ==
[~2021-03-17] VITALS: Ht 177 cm; Wt 82.5 kg
[~2021-03-17 17:19] MED LIST changes: +AMLO-250 PO
[2021-03-17 17:55] LABS: BASOPHILS % (AUTO) 0 % (0-10); EOSINOPHILS # (AUTO) 0.5 10^3/uL (0.0-0.3); EOSINOPHILS % (AUTO) 6 % (0-10); HEMATOCRIT 37 % (40-54); HEMOGLOBIN 12.1 g/dL (13.3-17.7); LYMPHOCYTES # (AUTO) 1.8 10^3/uL (1.0-4.0); LYMPHOCYTES % (AUTO) 22 % (12-44); MEAN CORPUSCULAR HEMOGLOBIN 30 pg (25-34); MEAN CORPUSCULAR HGB CONC 33 g/dL (32-36); MEAN CORPUSCULAR VOLUME 93 fL (80-99); MEAN PLATELET VOLUME 9.7 fL (9.0-12.2); MONOCYTES # (AUTO) 0.9 10^3/uL (0.0-1.0); MONOCYTES % (AUTO) 11 % (0-12); NEUTROPHILS # (AUTO) 4.7 10^3/uL (1.8-7.8); NEUTROPHILS % (AUTO) 60 % (42-75); PLATELET COUNT 205 10^3/uL (130-400)
[2021-03-17 18:12] LABS: PROTHROMBIN TIME PATIENT 13.7 SEC (12.2-14.7)
[2021-03-17] MEDS ORDERED: ASPIRIN E.C. 325 MG (ECOTRIN) TABLET PO ONE (18:15)
[2021-03-17] MEDS ORDERED: ASPIRIN 81 MG CHEW (CHILDREN'S ASA) PO ONE (18:15)
--- NOTE | 2021-03-17 18:16 | ED Chest Pain ---
General Chief Complaint: Chest Pain Stated Complaint: NAUSEA,ARM PAIN,CP Nursing Triage Note: PT ARRIVES TO ER WITH C/O CP RADIATING TO RIGHT ARM THAT BEGAN THIS MORNING AND WENT AWAY AROUND 1400 TODAY AFTER HE TOOK AN ASPIRIN AT HOME. PT HAS PACEMAKER AND HAS HAD PREV BYPASS Source: patient Exam Limitations: no limitations History of Present Illness Date Seen by Provider: Mar 17, 2021 Time Seen by Provider: 17:55 Initial Comments Patient to the ER with his son and chief complaint that about couple hours after he awoke this morning and went to work he started experiencing some left-sided chest pain radiating down his left arm into his left hand. In the past when he had this he had to have stents placed. He had a CABG about 15 to 20 years ago and has had about 3 stents since then by Dr. Hampton. Dr. Dumont is his primary care doctor. He is on aspirin and took it normal 81 mg this morning and another dose at 2:00 when his pain persisted. He rates his chest pain as mild, 4 out of 10. He is not having any shortness of air cough fever chills. He did have a little indigestion earlier today. It is not worse with exertion nor does he endorse any orthopnea or swelling in his hands or feet. He has had a hard time taking nitroglycerin in the past because it causes blood pressure to drop. He saw Dr. Hampton Saturday, 3 days ago for routine follow-up appointment and at that time his blood pressure was a little on the low side so Dr. Hampton changed his blood pressure medicine. Allergies and Home Medications Allergies Coded Allergies: nitroglycerin (Unverified Allergy, Severe, SYNCOPE, 10/23/19) Gkfepmj-Ila-Uie Reductase Inhibitor (Verified Adverse Reaction, Mild, JOINT PAIN, 10/23/19) Patient Home Medication List Home Medication List Reviewed: Yes Amlodipine Besylate (Amlodipine Besylate) 5 Mg Tablet, 5 MG PO DAILY Prescribed by: ANUJ ORDONEZ on 09/03/20 1420 Aspirin (Aspirin EC) 81 Mg Tablet., 81 MG PO DAILY, (Reported) Entered as Reported by: JOSETTE BREEN on 05/19/18 1011 Clopidogrel Bisulfate (Clopidogrel) 75 Mg Tablet, 75 MG PO DAILY, (Reported) Entered as Reported by: JENNIFER OSBORN on 12/23/18 0836 Escitalopram Oxalate (Escitalopram Oxalate) 20 Mg Tablet, 20 MG PO DAILY, (Reported) Entered as Reported by: JAX FAYE on 10/23/19 0957 Ezetimibe (Ezetimibe) 10 Mg Tablet, 10 MG PO DAILY, (Reported) Entered as Reported by: JOSETTE BREEN on 05/19/18 1011 Gluc/[place]-MSM#2/C/D3/Juan M/Born (Zzggpoczpf-Wigewbtdvqe-RFZ Tab) 1 Each Tablet, 1 EACH PO DAILY, (Reported) Entered as Reported by: JAX FAYE on 10/23/19 0957 Lactobacillus Acidophilus (Probiotic) 1 Each Capsule, 1 EACH PO BID, (Reported) Entered as Reported by: JAX FAYE on 10/23/19 09 Losartan Potassium (Losartan Potassium) 50 Mg Tablet, 50 MG PO DAILY, (Reported) Entered as Reported by: JENNIFER OSBORN on 12/23/18 0913 Metoprolol Tartrate (Metoprolol Tartrate) 50 Mg Tablet, 50 MG PO BID, (Reported) Entered as Reported by: HELGA LANE on 02/15/16 0926 Mirtazapine (Remeron) 15 Mg Tablet, 15 MG PO HS, (Reported) Entered as Reported by: JAX FAYE on 10/23/19 0957 Multivit-Min/FA/Lycopene/Lut (Centrum Silver Tablet) 1 Each Tablet, 1 EACH PO DAILY, (Reported) Entered as Reported by: JAX FAYE on 10/23/19 0957 Review of Systems Review of Systems Constitutional: No chills, No diaphoresis EENTM: No Blurred Vision, No Double Vision Respiratory: Denies Cough, Denies Shortness of Air Cardiovascular: Denies Chest Pain, Denies Lightheadedness Gastrointestinal: Denies Constipated, Denies Diarrhea Genitourinary: Denies Burning, Denies Discharge, Denies Drainage Musculoskeletal: No back pain, No joint pain Psychiatric/Neurological: Denies Anxiety, Denies Depressed All Other Systems Reviewed Negative Unless Noted: Yes Past Eacodus-Pikvgm-Chhwfs Hx Patient Social History Tobacco Use?: No Smoking Status: Former Smoker Use of E-Cig and/or Vaping dev: No Substance use?: No Alcohol Use?: Yes Alcohol Frequency: Once in a while Immunizations Up To Date Tetanus Booster (TDap): Unknown PED Vaccines UTD: No Influenza Vaccine Up-to-Date: No; Not Current First/Initial COVID19 Vaccinat: OCTOBER 2020 Second COVID19 Vaccination Dionisio: NOVEMBER 2020 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 [employer]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 Seasonal Allergies Seasonal Allergies: No Past Medical History Surgeries: Yes (L THR) Cardiac, CABG, Coronary Stent, Gallbladder, Orthopedic, Pacemaker, Transurethral Resection Respiratory: Yes (MILD DYSPNEA ON EXERTION) Asthma Currently Using CPAP: No Currently Using BIPAP: No Cardiac: Yes (CABG 1997, STENT 2014) Coronary Artery Disease, Heart Attack, High Cholesterol, Hypertension Neurological: Yes (TIA 09/2018--NO RESIDUAL ; CVA 2017--NO RESIDUAL) Stroke, TIA Reproductive Disorders: Yes (E.D.) Sexually Transmitted Disease: No HIV/AIDS: No Genitourinary: Yes (TURP) Benign Prostatic Hyperpl, Prostate Problems Gastrointestinal: No Gall Bladder Disease Musculoskeletal: Yes Arthritis, Fractures Endocrine: No HEENT: Yes (DENTURES) Cataract Loss of Vision: Denies Hearing Impairment: Hard of Hearing Cancer: Yes Prostate, Skin Did You Recieve Any Treatments: Yes What Type of Treatment Did You: Radiation, Surgical Intervention Psychosocial: No Integumentary: No Blood Disorders: No Adverse Reaction/Blood Tranf: Yes (HAS HAD BLOOD WITH NO REACTION) Family Medical History Alzheimer's disease 19 FATHER, Onset:60 years & older Cardiovascular disease 19 FATHER, Onset:15's - 20 (Was told that he had a "Leaky Heart") FH: brain cancer 19 MOTHER, Onset:60 years & older G8 BROTHER, Onset:50's - 60 FH: lung cancer 19 MOTHER, Onset:60 years & older FH: sudden G8 BROTHER, Onset:Childhood (Was ran over by a car at the age of 6.) Heart Disease, Hypertension Physical Exam Vital Signs Vital Signs - First Documented 03/17/21 17:34 Temp 37.0 Pulse 66 Resp 18 B/P (MAP) 168/90 (116) Pulse Ox 99 O2 Delivery Room Air Capillary Refill : Less Than 3 Seconds Height, Weight, BMI Height: 5'9.00" Weight: 180lbs. 4.0oz. 81.931432wp; 27.00 BMI Method:Estimated General Appearance: WD/WN, Mild Distress HEENT: PERRL/EOMI, Pharynx Normal, Moist Mucous Membranes Neck: Full Range of Motion, Normal Inspection Respiratory: Chest Non Tender, Lungs Clear, Normal Breath Sounds, No Accessory Muscle Use, No Respiratory Distress Cardiovascular: Regular Rate, Rhythm, No Edema, Normal Peripheral Pulses Gastrointestinal: Normal Bowel Sounds, No Organomegaly, Non Tender, Soft Extremity: Normal Capillary Refill, Normal Inspection, No Pedal Edema Neurologic/Psychiatric: Alert, Oriented x3, No Motor/Sensory Deficits Skin: Normal Color, Warm/Dry Procedures/Interventions Suture Size: 5-0 Progress/Results/Core Measures Results/Orders Lab Results Laboratory Tests Test 03/17/21 17:35 Range/Units White Blood Count 8.0 4.3-11.0 10^3/uL Red Blood Count 3.98 L 4.30-5.52 10^6/uL Hemoglobin 12.1 L 13.3-17.7 g/dL Hematocrit 37 L 40-54 % Mean Corpuscular Volume 93 80-99 fL Mean Corpuscular Hemoglobin 30 25-34 pg Mean Corpuscular Hemoglobin Concent 33 32-36 g/dL Red Cell Distribution Width 13.5 10.0-14.5 % Platelet Count 205 130-400 10^3/uL Mean Platelet Volume 9.7 9.0-12.2 fL Immature Granulocyte % (Auto) 0 % Neutrophils (%) (Auto) 60 42-75 % Lymphocytes (%) (Auto) 22 12-44 % Monocytes (%) (Auto) 11 0-12 % Eosinophils (%) (Auto) 6 0-10 % Basophils (%) (Auto) 0 0-10 % Neutrophils # (Auto) 4.7 1.8-7.8 10^3/uL Lymphocytes # (Auto) 1.8 1.0-4.0 10^3/uL Monocytes # (Auto) 0.9 0.0-1.0 10^3/uL Eosinophils # (Auto) 0.5 H 0.0-0.3 10^3/uL Basophils # (Auto) 0.0 0.0-0.1 10^3/uL Immature Granulocyte # (Auto) 0.0 0.0-0.1 10^3/uL Prothrombin Time 13.7 12.2-14.7 SEC INR Comment 1.0 0.8-1.4 Activated Partial Thromboplast Time 31 24-35 SEC D-Dimer 0.95 H 0.00-0.49 UG/ML Sodium Level 137 135-145 MMOL/L Potassium Level 4.2 3.6-5.0 MMOL/L Chloride Level 103 98-107 MMOL/L Carbon Dioxide Level 23 21-32 MMOL/L Anion Gap 11 5-14 MMOL/L Blood Urea Nitrogen 24 H 7-18 MG/DL Creatinine 1.17 0.60-1.30 MG/DL Estimat Glomerular Filtration Rate 60 BUN/Creatinine Ratio 21 Glucose Level 82 70-105 MG/DL Calcium Level 9.3 8.5-10.1 MG/DL Corrected Calcium 9.2 8.5-10.1 MG/DL Magnesium Level 2.6 H 1.6-2.4 MG/DL Total Bilirubin 0.7 0.1-1.0 MG/DL Aspartate Amino Transf (AST/SGOT) 24 5-34 U/L Alanine Aminotransferase (ALT/SGPT) 26 0-55 U/L Alkaline Phosphatase 57 40-136 U/L Myoglobin 185.9 H 10.0-92.0 NG/ML Troponin I < 0.028 <0.028 NG/ML B-Type Natriuretic Peptide 108.9 H <100.0 PG/ML Total Protein 7.2 6.4-8.2 GM/DL Albumin 4.1 3.2-4.5 GM/DL My Orders Orders - FLORENCIO ENRIQUE Aspirin Chewable Tablet (Baby Aspirin Ch (03/17/21 18:15) BNP (03/17/21 18:18) Medications Given in ED Current Medications Medications Dose Ordered Sig/Leana Route Start Time Stop Time Status Last Admin Dose Admin Aspirin 162 mg ONCE ONCE PO 03/17/21 18:15 03/17/21 18:16 DC 03/17/21 18:16 162 MG Vital Signs/I&O 03/17/21 17:34 Temp 37.0 Pulse 66 Resp 18 B/P (MAP) 168/90 (116) Pulse Ox 99 O2 Delivery Room Air Blood Pressure Mean: 116 Progress Progress Note : Time: 18:14 Progress Note Strong concern for acute coronary syndrome. Another 2 tablets of aspirin o rdered. Patient declined anything for pain at this time. We will give morphine if he needs it. Chest x-ray and labs pending Initial ECG Impression Date: Mar 17, 2021 Initial ECG Impression Time: 17:28 Initial ECG Rate: 66 Initial ECG Rhythm: Normal Sinus Initial ECG Intervals: Normal Initial ECG Impression: Normal Comment Left bundle branch block with atrial paced rhythm. No clinically relevant ST changes. Diagnostic Imaging Diagonstic Imaging: Xray Plain Films/CT/US/NM/MRI: chest Reviewed: Reviewed by Me Departure Communication (Admissions) Time/Spoke to Admitting Phy: 19:40 Discussed the case with Dr. James who is okay with medical telemetry with consultation to cardiology. Because of the risk of early onset pneumonia seen on chest x-ray she is okay with Rocephin and azithromycin for now. Time/Spoke to Consulting Phy: 19:45 Discussed the case with Dr. Velasquez who agrees with plan. He would like a one- time dose of Lovenox and make sure he is on aspirin and Plavix. Impression Primary Impression: Acute coronary syndrome Additional Impression: Pneumonia Qualified Codes: J18.9 - Pneumonia, unspecified organism Disposition: ADMITTED INPATIENT Condition: Stable Admissions Decision to Admit Reason: Admit from ER (General) Decision to Admit/Date: Mar 17, 2021 Time/Decision to Admit Time: 19:00 Departure-Patient Inst. Referrals: BEVERLEY DUMONT MD (PCP/Family) Primary Care Physician FLORENCIO ENRIQUE Mar 17, 2021 18:16
[2021-03-17 18:22] LABS: ALBUMIN 4.1 GM/DL (3.2-4.5); BILIRUBIN,TOTAL 0.7 MG/DL (0.1-1.0); CALCIUM 9.3 MG/DL (8.5-10.1); CREATININE SERUM 1.17 MG/DL (0.60-1.30); MAGNESIUM 2.6 MG/DL (1.6-2.4); POTASSIUM 4.2 MMOL/L (3.6-5.0); TOTAL PROTEIN 7.2 GM/DL (6.4-8.2)
--- NOTE | 2021-03-17 18:27 | Diagnostic Imaging Report ---
INDICATION: Chest pain. COMPARISON: Prior examination from 01/03/2020. FINDINGS: There is a left perihilar infiltrate. The heart size is normal. There has been a previous median sternotomy. There is no pleural effusion or pneumothorax. Pacemaker overlies the left hemithorax. IMPRESSION: Left perihilar infiltrate suspect for early pneumonia. Dictated by: Dictated on workstation # [id number]
[2021-03-17] MEDS ORDERED: AZITHROMYCIN 250 MG TAB (ZITHROMAX) PO ONE (20:00)
[2021-03-17] MEDS ORDERED: cefTRIAXone 1,000 MG in WATER (STERILE) FOR INJECTION 10 ML IV ONE (20:00)
[2021-03-17] MEDS ORDERED: ENOXAPARIN 100 MG/1 ML (LOVENOX) SYR SC ONE (20:00)
[2021-03-17 20:25] VITALS: BP 156/75
[2021-03-17 20:40] VITALS: BP 131/63
[2021-03-17 20:55] VITALS: BP 143/93
[2021-03-17 21:14] VITALS: BP 168/90
[2021-03-17] MEDS ORDERED: morphine INJ 4 MG/ML 1 ML (VIAL/SYRINGE) IV PRN (21:15)
[2021-03-17] MEDS ORDERED: ONDANSETRON 4 MG/2 ML (SDV) Z0FRAN IVP PRN (21:15)
[2021-03-17] MEDS ORDERED: ACETAMINOPHEN 325 MG TABLET PO PRN (21:30)
[2021-03-17] MEDS ORDERED: RT-ALBUTEROL SULF 2.5 MG/3 ML PRE-MIX VIAL INH PRN (21:30)
[2021-03-18] VITALS: BP 130/69
[2021-03-18 04:33] VITALS: BP 117/66
[2021-03-18 06:15] LABS: BASOPHILS % (AUTO) 0 % (0-10); EOSINOPHILS # (AUTO) 0.5 10^3/uL (0.0-0.3); EOSINOPHILS % (AUTO) 9 % (0-10); HEMATOCRIT 35 % (40-54); HEMOGLOBIN 11.7 g/dL (13.3-17.7); LYMPHOCYTES # (AUTO) 1.4 10^3/uL (1.0-4.0); LYMPHOCYTES % (AUTO) 23 % (12-44); MEAN CORPUSCULAR HEMOGLOBIN 31 pg (25-34); MEAN CORPUSCULAR HGB CONC 33 g/dL (32-36); MEAN CORPUSCULAR VOLUME 93 fL (80-99); MEAN PLATELET VOLUME 9.5 fL (9.0-12.2); MONOCYTES # (AUTO) 0.8 10^3/uL (0.0-1.0); MONOCYTES % (AUTO) 12 % (0-12); NEUTROPHILS # (AUTO) 3.5 10^3/uL (1.8-7.8); NEUTROPHILS % (AUTO) 56 % (42-75); PLATELET COUNT 180 10^3/uL (130-400); WHITE BLOOD COUNT 6.3 10^3/uL (4.3-11.0)
[2021-03-18 06:27] LABS: POTASSIUM 3.9 MMOL/L (3.6-5.0)
[2021-03-18 06:28] LABS: CALCIUM 8.9 MG/DL (8.5-10.1)
[2021-03-18 06:32] LABS: CREATININE SERUM 0.98 MG/DL (0.60-1.30)
--- NOTE | 2021-03-18 07:40 | Diagnostic Imaging Report ---
INDICATION: History of chest pain, follow-up pneumonia. EXAMINATION: Chest 03/18/2021 COMPARISON: 03/17/2021 FINDINGS: The left base infiltrate is stable. Remaining lungs clear. No effusions. No pneumothorax. Heart is unchanged. Pulmonary vasculature is unremarkable. Sternotomy wires, mediastinal clips and a left pacemaker stable. IMPRESSION: 1. Left base infiltrate. Dictated by: Dictated on workstation # [id number]
[2021-03-18 08:00] VITALS: BP 160/91
[2021-03-18] MEDS ORDERED: ASPIRIN E.C. 81 MG (ECOTRIN) TAB PO SCH (09:00)
[2021-03-18] MEDS ORDERED: CLOPIDOGREL 75 MG (PLAVIX) TABLET PO SCH (09:00)
[2021-03-18 11:22] VITALS: BP 160/78
[2021-03-18] MEDS ORDERED: DILT-27 PO (15:31)
--- NOTE | 2021-03-18 16:06 | Discharge Summary ---
Discharge Summary Hospital Course Problems/Dx: (1) Chest pain Status: Acute (2) CAD (coronary artery disease) Status: Acute Hospital Course Date of Admission: Mar 17, 2021 at 19:45 Admission Diagnosis : Chest pain Family Physician/Provider: Beverley Dumont MD Date of Discharge: 03/18/21 Discharge Diagnosis: Chest pain Hospital Course: Angela Haile is an 85 year old male with PMH CAD who presented with chest pain. He was admitted for observation and underwent serial troponin monitoring. His troponin remained normal and his chest pain resolved. Cardiology was consu lted and assisted with his care. He will follow up with Dr. Hampton next week for further evaluation. His course was complicated by possible pneumonia seen on chest xray. He had no signs of pneumonia and his WBC and procalcitonin were normal so antibiotics were not given. He was discharged home in stable condition. Labs and Pending Lab Test: Laboratory Tests 03/17/21 17:35: White Blood Count 8.0, Red Blood Count 3.98L, Hemoglobin 12.1L, Hematocrit 37L, Mean Corpuscular Volume 93, Mean Corpuscular Hemoglobin 30, Mean Corpuscular Hemoglobin Concent 33, Red Cell Distribution Width 13.5, Platelet Count 205, Mean Platelet Volume 9.7, Immature Granulocyte % (Auto) 0, Neutrophils (%) (Auto) 60, Lymphocytes (%) (Auto) 22, Monocytes (%) (Auto) 11, Eosinophils (%) (Auto) 6, Basophils (%) (Auto) 0, Neutrophils # (Auto) 4.7, Lymphocytes # (Auto) 1.8, Monocytes # (Auto) 0.9, Eosinophils # (Auto) 0.5H, Basophils # (Auto) 0.0, Immature Granulocyte # (Auto) 0.0, Prothrombin Time 13.7, INR Comment 1.0, Activated Partial Thromboplast Time 31, D-Dimer 0.95H, Sodium Level 137, Potassium Level 4.2, Chloride Level 103, Carbon Dioxide Level 23, Anion Gap 11, Blood Urea Nitrogen 24H, Creatinine 1.17, Estimat Glomerular Filtration Rate 60, BUN/Creatinine Ratio 21, Glucose Level 82, Calcium Level 9.3, Corrected Calcium 9.2, Magnesium Level 2.6H, Total Bilirubin 0.7, Aspartate Amino Transf (AST/SGOT) 24, Alanine Aminotransferase (ALT/SGPT) 26, Alkaline Phosphatase 57, Myoglobin 185.9H, Troponin I < 0.028, B-Type Natriuretic Peptide 108.9H, Total Protein 7.2, Albumin 4.1 03/18/21 01:58: Troponin I < 0.028 03/18/21 05:56: White Blood Count 6.3, Red Blood Count 3.81L, Hemoglobin 11.7L, Hematocrit 35L, Mean Corpuscular Volume 93, Mean Corpuscular Hemoglobin 31, Mean Corpuscular Hemoglobin Concent 33, Red Cell Distribution Width 13.6, Platelet Count 180, Mean Platelet Volume 9.5, Immature Granulocyte % (Auto) 0, Neutrophils (%) (Auto) 56, Lymphocytes (%) (Auto) 23, Monocytes (%) (Auto) 12, Eosinophils (%) (Auto) 9, Basophils (%) (Auto) 0, Neutrophils # (Auto) 3.5, Lymphocytes # (Auto) 1.4, Monocytes # (Auto) 0.8, Eosinophils # (Auto) 0.5H, Basophils # (Auto) 0.0, Immature Granulocyte # (Auto) 0.0, Sodium Level 140, Potassium Level 3.9, Chloride Level 105, Carbon Dioxide Level 24, Anion Gap 11, Blood Urea Nitrogen 21H, Creatinine 0.98, Estimat Glomerular Filtration Rate 73, BUN/Creatinine Ratio 21, Glucose Level 89, Calcium Level 8.9, Troponin I < 0.028, Triglycerides Level 150H, Cholesterol Level 164, LDL Cholesterol Direct 109, VLDL Cholesterol 30, HDL Cholesterol 37L, Procalcitonin 0.02 Home Meds Active Amlodipine Besylate 5 Mg Tablet 5 Mg PO DAILY 30 Days Reported Diltiazem 24Hr ER (Diltiazem HCl) 120 Mg Cap.er.24h 120 Mg PO DAILY Witzgwckeh-Ataddndckqf-KTZ Tab (Gluc/[place]-MSM#2/C/D3/Juan M/Born) 1 Each Tablet 1 Each PO DAILY Probiotic (Lactobacillus Acidophilus) 1 Each Capsule 1 Each PO BID Centrum Silver Tablet (Multivit-Min/FA/Lycopene/Lut) 1 Each Tablet 1 Each PO DAILY Remeron (Mirtazapine) 15 Mg Tablet 15 Mg PO HS Escitalopram Oxalate 20 Mg Tablet 20 Mg PO DAILY Losartan Potassium 50 Mg Tablet 50 Mg PO DAILY Clopidogrel (Clopidogrel Bisulfate) 75 Mg Tablet 75 Mg PO DAILY Ezetimibe 10 Mg Tablet 10 Mg PO DAILY Aspirin EC (Aspirin) 81 Mg Tablet. 81 Mg PO DAILY Metoprolol Tartrate 50 Mg Tablet 50 Mg PO BID Assessment/Pt Instructions Take medications as prescribed. Follow up with Dr. Hampton next week. Return with worsening chest pain, shortness of breath, or if you feel like you are getting worse. Discharge Planning: <30 minutes discharge planning Discharge Instructions Discharge Diet: Low Sodium Diet Activity as Tolerated: Yes Consultations Cardiology Discharge Physical Examination Vital Signs Vital Signs Date Time Temp Pulse Resp B/P (MAP) Pulse Ox O2 Delivery O2 Flow Rate FiO2 03/18/21 11:22 36.7 62 24 160/78 (105) 93 Room Air 03/17/21 21:14 21 General Appearance: No Apparent Distress, WD/WN HEENT: PERRL/EOMI, Pharynx Normal Respiratory: Lungs Clear, Normal Breath Sounds, No Respiratory Distress Cardiovascular: Regular Rate, Rhythm, No Edema, No Murmur Gastrointestinal: Normal Bowel Sounds, Non Tender, Soft Extremity: Normal Inspection, Non Tender, No Pedal Edema Skin: Normal Color, Warm/Dry Neurologic/Psychiatric: Alert, Oriented x3, Normal Mood/Affect Allergies: Coded Allergies: nitroglycerin (Unverified Allergy, Severe, SYNCOPE, 10/23/19) Lmmdkie-Oxx-Qru Reductase Inhibitor (Verified Adverse Reaction, Mild, JOINT PAIN, 10/23/19) Copy Copies To 1: BEVERLEY DUMONT MD Discharge Summary Date of Admission Mar 17, 2021 at 19:45 Date of Discharge Discharge Date: Mar 18, 2021 Discharge Time: 16:03 Admission Diagnosis Chest pain Consults/Procedures Consulations Cardiology Discharge Diagnosis (1) Chest pain Status: Acute (2) CAD (coronary artery disease) Status: Acute Clinical Quality Measures AMI/AHF: ASA po Prior to arrival: Yes (81MG AT 1400) SANJIV PAK MD Mar 18, 2021 16:06
[2021-03-18 16:18] VITALS: BP 160/78
--- NOTE | 2021-03-18 16:18 | Consultation-Cardiology ---
HPI-Cardiology Cardiology Consultation: Date of Consultation 03/18/21 Time Seen by a Provider: 15:45 Date of Admission Attending Physician Sulma James MD Admitting Physician Susannah Dumont MD Consulting Physician RUBEN BRASWELL MD, MA, FACP, FACC, FSCAI, CCDS HPI: Chief Complaint: CC: Chest discomfort HPI 85 yo man who was admitted last night with L-sided chest discomfort, localized to a relatively small area and with some radiation down the L arm. It lasted several hours, was mild, varied from sharp to dull, was not associated with other symptoms, was w/o aggravating or relieving factors, and resolved on its own without any recurrence. He has continued to fee "great" today and insists on going home. Denies shortness of breath or palp or syncope or swelling Review of Systems-Cardiology Review of Systems Constitutional: No malaise, No weight loss, No weight gain Eyes: No vision change Ears/Nose/Throat: No ear discharge, No nasal drainage, No recent hearing loss Respiratory: As described under HPI Cardiovascular: As described under HPI Gastrointestinal: No diarrhea, No nausea, No vomiting Genitourinary: No dysuria, No urine frequency changes Musculoskeletal: No back pain, No joint pain Skin: No rash, No ulcerations Psychiatric/Neurological: No seizure, No focal weakness, No syncope Hematologic: No bleeding abnormalities All Other Systems Reviewed Negative Unless Noted: Yes EFB-Aitlui-Jffjec Hx Patient Social History Smoking Status: Former Smoker Former smoker/When Quit: Apr 30, 1996 2nd Hand Smoke Exposure: Yes Have you traveled recently?: No Alcohol Use?: No Pt feels they are or have been: No Tobacco type used: Cigarettes Immunizations Up To Date Tetanus Booster (TDap): Unknown Past Medical History PMH As described under Assessment. Family Medical History Family History: Alzheimer's disease 19 FATHER, Onset:60 years & older Cardiovascular disease 19 FATHER, Onset:15's - 20 (Was told that he had a "Leaky Heart") FH: brain cancer 19 MOTHER, Onset:60 years & older G8 BROTHER, Onset:50's - 60 FH: lung cancer 19 MOTHER, Onset:60 years & older FH: sudden G8 BROTHER, Onset:Childhood (Was ran over by a car at the age of 6.) Allergies and Home Medications Allergies Coded Allergies: nitroglycerin (Unverified Allergy, Severe, SYNCOPE, 10/23/19) Tlfomeu-Avh-Ggh Reductase Inhibitor (Verified Adverse Reaction, Mild, JOINT PAIN, 10/23/19) Patient Home Medication List Home Medication List Reviewed: Yes Amlodipine Besylate (Amlodipine Besylate) 5 Mg Tablet, 5 MG PO DAILY Prescribed by: ANUJ ORDONEZ on 09/03/20 1420 Last Action: Reviewed Aspirin (Aspirin EC) 81 Mg Tablet.dr, 81 MG PO DAILY, (Reported) Entered as Reported by: JOSETTE BREEN on 05/19/18 1011 Last Action: Reviewed Clopidogrel Bisulfate (Clopidogrel) 75 Mg Tablet, 75 MG PO DAILY, (Reported) Entered as Reported by: JENNIFER OSBORN on 12/23/18 0836 Last Action: Reviewed Diltiazem HCl (Diltiazem 24Hr ER) 120 Mg Cap.er.24h, 120 MG PO DAILY, (Reported) Entered as Reported by: YARITZA RICO on 03/18/21 1531 Last Action: Reviewed Escitalopram Oxalate (Escitalopram Oxalate) 20 Mg Tablet, 20 MG PO DAILY, (Reported) Entered as Reported by: JAX FAYE on 10/23/1957 Last Action: Reviewed Ezetimibe (Ezetimibe) 10 Mg Tablet, 10 MG PO DAILY, (Reported) Entered as Reported by: JOSETTE BREEN on 05/19/18 101 Last Action: Reviewed Gluc/[place]-MSM#2/C/D3/Juan M/Born (Rtfoxgacbd-Yhszodapewp-FPN Tab) 1 Each Tablet, 1 EACH PO DAILY, (Reported) Entered as Reported by: JAX FAEY on 10/23/19956 Last Action: Reviewed Lactobacillus Acidophilus (Probiotic) 1 Each Capsule, 1 EACH PO BID, (Reported) Entered as Reported by: JAX FAYE on 10/23/19956 Last Action: Reviewed Losartan Potassium (Losartan Potassium) 50 Mg Tablet, 50 MG PO DAILY, (Reported) Entered as Reported by: JENNIFER OSBORN on 12/23/18 0913 Last Action: Reviewed Metoprolol Tartrate (Metoprolol Tartrate) 50 Mg Tablet, 50 MG PO BID, (Reported) Entered as Reported by: HELGA LANE on 02/15/16 09 Last Action: Reviewed Mirtazapine (Remeron) 15 Mg Tablet, 15 MG PO HS, (Reported) Entered as Reported by: JAX FAYE on 10/23/19956 Last Action: Reviewed Multivit-Min/FA/Lycopene/Lut (Centrum Silver Tablet) 1 Each Tablet, 1 EACH PO DAILY, (Reported) Entered as Reported by: JAX FAYE on 10/23/19956 Last Action: Reviewed Physical Exam-Cardiology Physical Exam Vital Signs/I&O 03/18/21 03/18/21 03/18/21 03/18/21 04:33 07:00 08:00 09:00 Temp 36.8 36.7 Pulse 68 60 63 Resp 18 20 B/P (MAP) 117/66 (83) 160/91 (114) Pulse Ox 93 94 O2 Delivery Room Air Room Air Room Air 03/18/21 11:22 Temp 36.7 Pulse 62 Resp 24 B/P (MAP) 160/78 (105) Pulse Ox 93 O2 Delivery Room Air 03/18/21 00:00 Intake Total 300 ml Balance 300 ml Capillary Refill : Less Than 3 Seconds Constitutional: AAO x 3, well-developed, well-nourished HEENT: EOMI, hearing is well preserved; No xanthelasmas are seen Neck: carotid pulses are 2 + bilaterally, with good upstrokes Respiratory: No accessory muscle use; other (good, bilateral air entry) Cardiovascular: regular rate-rhythm, S1 and S2, systolic murmur (faint HECTOR at card base) Gastrointestinal: No tender; soft; No guarding, No rebound; audible bowel sounds Extremities: No clubbing, No cyanosis, No significant edema Neurologic/Psychiatric: oriented x 3, other (moves all limbs equally) Skin: normal color, warm/dry; No rash on exposed areas, No ulcerations on exposed areas Data Review Labs Laboratory Tests 03/17/21 17:35: White Blood Count 8.0, Red Blood Count 3.98L, Hemoglobin 12.1L, Hematocrit 37L, Mean Corpuscular Volume 93, Mean Corpuscular Hemoglobin 30, Mean Corpuscular Hemoglobin Concent 33, Red Cell Distribution Width 13.5, Platelet Count 205, Mean Platelet Volume 9.7, Immature Granulocyte % (Auto) 0, Neutrophils (%) (Auto) 60, Lymphocytes (%) (Auto) 22, Monocytes (%) (Auto) 11, Eosinophils (%) (Auto) 6, Basophils (%) (Auto) 0, Neutrophils # (Auto) 4.7, Lymphocytes # (Auto) 1.8, Monocytes # (Auto) 0.9, Eosinophils # (Auto) 0.5H, Basophils # (Auto) 0.0, Immature Granulocyte # (Auto) 0.0, Prothrombin Time 13.7, INR Comment 1.0, Activated Partial Thromboplast Time 31, D-Dimer 0.95H, Sodium Level 137, Potassium Level 4.2, Chloride Level 103, Carbon Dioxide Level 23, Anion Gap 11, Blood Urea Nitrogen 24H, Creatinine 1.17, Estimat Glomerular Filtration Rate 60, BUN/Creatinine Ratio 21, Glucose Level 82, Calcium Level 9.3, Corrected Calcium 9.2, Magnesium Level 2.6H, Total Bilirubin 0.7, Aspartate Amino Transf ( AST/SGOT) 24, Alanine Aminotransferase (ALT/SGPT) 26, Alkaline Phosphatase 57, Myoglobin 185.9H, Troponin I < 0.028, B-Type Natriuretic Peptide 108.9H, Total Protein 7.2, Albumin 4.1 03/18/21 01:58: Troponin I < 0.028 03/18/21 05:56: White Blood Count 6.3, Red Blood Count 3.81L, Hemoglobin 11.7L, Hematocrit 35L, Mean Corpuscular Volume 93, Mean Corpuscular Hemoglobin 31, Mean Corpuscular Hemoglobin Concent 33, Red Cell Distribution Width 13.6, Platelet Count 180, Mean Platelet Volume 9.5, Immature Granulocyte % (Auto) 0, Neutrophils (%) (Auto) 56, Lymphocytes (%) (Auto) 23, Monocytes (%) (Auto) 12, Eosinophils (%) (Auto) 9, Basophils (%) (Auto) 0, Neutrophils # (Auto) 3.5, Lymphocytes # (Auto) 1.4, Monocytes # (Auto) 0.8, Eosinophils # (Auto) 0.5H, Basophils # (Auto) 0.0, Immature Granulocyte # (Auto) 0.0, Sodium Level 140, Potassium Level 3.9, Chloride Level 105, Carbon Dioxide Level 24, Anion Gap 11, Blood Urea Nitrogen 21H, Creatinine 0.98, Estimat Glomerular Filtration Rate 73, BUN/Creatinine Ratio 21, Glucose Level 89, Calcium Level 8.9, Troponin I < 0.028, Triglycerides Level 150H, Cholesterol Level 164, LDL Cholesterol Direct 109, VLDL Cholesterol 30, HDL Cholesterol 37L, Procalcitonin 0.02 Laboratory Tests 03/17/21 17:35 03/18/21 05:56 A/P-Cardiology Assessment/Admission Diagnosis Chest discomfort of undetermined etiology - no evidence of ac AK Coronary artery disease - history of CABG x4 done in 1997 using LIM to LAD, vein graft to LAD, vein graft to the first and second obtuse marginal and vein graft to the right coronary artery - cardiac catheterization on November 10, 2014 and underwent 2 stents placement using 3.0 x 16 Promus Premier stent in the distal vessel, 3.0 x 20 Promus Premier stent in the mid RCA. - most recent cardiac catheterization done November 14, 2018 revealed severe stenosis in the mid vein graft to the circumflex and diagonal branch treated with successful primary stenting using Loida 4.0 x 23 mm expanded to 4.5 mm proximally and 4.25 mm distally; Patent LIM to LAD. 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 Improved after receiving TPA. Pacemaker interrogation revealed no arrhythmia. He is maintained on Plavix and aspirin Echocardiogram done in October 2019 showing normal left ventricular size, EF 45-50 percent, grade 1 diastolic dysfunction, left atrium 4.4 cm, PA pressure 30 mmHg Hypertension, Lopressor was recently increased and started on amlodipine. Dr Hampton is monitoring Hyperlipidemia, controlled. Dr Hampton is monitoring Sick sinus syndrome, history of permanent pacemaker, status post generator replacement on February 15, 2016, Med[employer]onic Adapta serial # [id number] - last interrogation was done in January 2021 showing good sensing and capture activity, noted to have increased atrial high rate. Reports has been cutting firewood recently. Dr Hampton started Cardizem CD 120mg daily at that time Mild bilateral carotid stenosis, nonobstructive disease, last carotid ultrasound done in October 2019. Dr Hampton monitiorin History of intolerance to Plavix in the past secondary to bleed requiring cauterization of bladder, currently tolerating Plavix History of dizziness, remote syncope probably due to transient hypotension, no further episodes were reported Intolerance to isosorbide Benign prostatic hypertrophy, history of TURP. Followed by Dr. Walker Discussion and Recomendations * There is no evidence of ACS * He refuses to stay in the hospital any longer * Advised to come back to ER in case of any recurrence of symptoms or new symptoms * Advised to f/u with Dr Hampton on 03/20/21 * Advised to continue previous cardiac regimen Clinical Quality Measures AMI/AHF: ASA po Prior to arrival: Yes (81MG AT 1400) RUBEN BRASWELL MD FACP FACC CCDS Mar 18, 2021 16:18
[2021-03-18] MEDS ORDERED: AZITHROMYCIN 250 MG TAB (ZITHROMAX) PO SCH (21:00)
[2021-03-18] MEDS ORDERED: cefTRIAXone 1,000 MG/SWFI 10 ML IV PUSH IV SCH ×2 (21:00)
== END 2021-03-18 16:00 | disposition home or self-care (01) ==
LOC: EDUNIT# 17:19 → ER 17:20 → UNDOADMOB 19:45 → 4TH 19:45 → UNDODISOB 03-18 16:18
PROVIDERS: ADMIT Family Medicine; ATTEND Family Medicine
DX: R07.89 Other chest pain (principal); I25.10 Atherosclerotic heart disease of native coronary artery without angina pectoris; I44.7 Left bundle-branch block, unspecified; J18.9 Pneumonia, unspecified organism; J45.909 Unspecified asthma, uncomplicated; E78.00 Pure hypercholesterolemia, unspecified; I10 Essential (primary) hypertension; M19.90 Unspecified osteoarthritis, unspecified site; I24.9 Acute ischemic heart disease, unspecified; E78.5 Hyperlipidemia, unspecified; Z95.1 Presence of aortocoronary bypass graft; Z95.0 Presence of cardiac pacemaker; Z79.82 Long term (current) use of aspirin; Z79.899 Other long term (current) drug therapy; Z79.02 Long term (current) use of antithrombotics/antiplatelets; Z87.891 Personal history of nicotine dependence; Z95.5 Presence of coronary angioplasty implant and graft; Z86.73 Personal history of transient ischemic attack (TIA), and cerebral infarction without residual deficits
CPT/HCPCS: 71045 ×2; 80048; 80053; 80061; 83735; 83874; 83880; 84145; 84484 ×2; 85025 ×2; 85379; 85610; 85730; 93005 ×2; 93041; 99284; G0378; 36415

== ENCOUNTER → 2021-03-22 | Outpatient (CLI) | payer MEDICARE ==
[~2021-03-22] MED LIST changes: +CATHETER FLUSH 10 ML SYR IV PRN; +DILT-27 PO; +REGADENOSON 0.4 MG/5 ML SYR (LEXISCAN) IV ONE
[2021-03-22 09:33] VITALS: BP 166/84
--- NOTE | 2021-03-22 11:32 | Cardiology Stress Test Report ---
Stress Test Report Date of Procedure/Referring: Date of Procedure: Mar 22, 2021 Alena Jacobson Admitting Physician Beverley Dumont MD Indications: CP Baseline Heart Rate: 83 Baseline Blood Pressure: Blood Pressure Systolic: 166 Blood Pressure Diastolic: 84 Baseline Vitals Vital Signs Date Time Temp Pulse Resp B/P (MAP) Pulse Ox O2 Delivery O2 Flow Rate FiO2 03/22/21 09:33 83 18 166/84 (111) 97 Room Air Baseline EKG: Baseline EKG: NSR Summary After explaining the procedure to the patient, he signed a consent and then brought to the stress nuclear laboratory. Patient received 0.4 mg Lexiscan for stress test, ECG, heart rate and blood pressure were monitored continuously. Resting and stress dose of radio tracer were injected, imaging was acquired and reviewed in short axis, horizontal long axis and vertical long axis views. TID: 0.96 SSS: 5 SDS: 3 EF: 51 1. Patient tolerated Lexiscan well 2. No significant EKG changes noted during test 3. Diaphragmatic attenuation with decreased uptake involving the inferoapical segment and apical segment of the inferior lateral wall with mild reversibility 4. Normal left ventricular size, EF 51% Copy Copies To 1: BEVERLEY DUMONT MD, BASHAR J MD Mar 22, 2021 11:32
== END ==
LOC: CARD 08:30
PROVIDERS: ATTEND Physician Assistant
DX: I25.10 Atherosclerotic heart disease of native coronary artery without angina pectoris (principal)
CPT/HCPCS: 78452; 93017; A9502

== ENCOUNTER 2021-03-29 08:00 | Day surgery (SDC) | payer MEDICARE ==
[2021-03-29] VITALS (12 sets, daily range): BP systolic 121–152; BP diastolic 71–90
[~2021-03-29] VITALS: Ht 177.8 cm; Wt 85.3 kg
[2021-03-29 07:17] LABS: HEMATOCRIT 38 % (40-54); HEMOGLOBIN 12.3 g/dL (13.3-17.7); MEAN CORPUSCULAR HEMOGLOBIN 31 pg (25-34); MEAN CORPUSCULAR HGB CONC 33 g/dL (32-36); MEAN CORPUSCULAR VOLUME 94 fL (80-99); MEAN PLATELET VOLUME 9.4 fL (9.0-12.2); PLATELET COUNT 186 10^3/uL (130-400); WHITE BLOOD COUNT 7.5 10^3/uL (4.3-11.0)
[2021-03-29 07:28] LABS: PROTHROMBIN TIME PATIENT 13.4 SEC (12.2-14.7)
[2021-03-29 07:32] LABS: BILIRUBIN,URINE NEGATIVE (NEGATIVE); CLARITY,URINE CLEAR; COLOR,URINE YELLOW; GLUCOSE, URINE (UA) NEGATIVE (NEGATIVE); KETONES,URINE NEGATIVE (NEGATIVE); LEUKOCYTE ESTERASE ,URINE NEGATIVE (NEGATIVE); NITRITE,URINE NEGATIVE (NEGATIVE); PROTEIN,URINE NEGATIVE (NEGATIVE)
[2021-03-29 07:37] LABS: ALBUMIN 3.9 GM/DL (3.2-4.5); CALCIUM 9.4 MG/DL (8.5-10.1); CREATININE SERUM 1.05 MG/DL (0.60-1.30); POTASSIUM 3.9 MMOL/L (3.6-5.0)
[2021-03-29 07:42] LABS: BACTERIA,URINE NEGATIVE /HPF; RBC,URINE RARE /HPF; WBC,URINE 0-2 /HPF
[~2021-03-29 08:00] MED LIST changes: +ACET-2267 PO; -CATHETER FLUSH 10 ML SYR IV PRN; +CHOL-34 PO; +CYAN-41 PO; +FISH1CAP15 PO; +HEParin (CATH LAB) 2,000 ML IV ONE; +LIDOCAINE 1% INJ 20 ML 20 ML VIAL ONE; +MIDAZOLAM 5 MG/5 ML (VERSED) VIAL ONE; +NS IV 1000 ML 1,000 ML IV SCH; +NS IV 1000 ML 1,000 ML ONE; -REGADENOSON 0.4 MG/5 ML SYR (LEXISCAN) IV ONE; +fentaNYL INJ 100 MCG/2 ML AMP ONE
--- NOTE | 2021-03-29 08:44 | Conscious Sedation/ASA ---
Conscious Sedation Pre-Proced Time 08:43 ASA Score 3 For ASA 3 and 4: Consider anesthesia and medical clearance. Also, for patients with a history of failed moderate sedation consider anesthesia. Airway Lungs Heart ASA score ASA 1: a normal healthy patient ASA 2: a patient with a mild systemic disease (mid diabetes, controlled hypertension, obesity x ASA 3: a patient with a severe systemic disease that limits activity (angina, COPD, prior Myocardial infarction) ASA 4: a patient with an incapacitating disease that is a constant threat to life (CHF, renal failure) ASA 5: a moribund patient not expected to survive 24 hrs. (ruptured aneurysm) ASA 6: a declared brain- patient whose organs are being harvested. For emergent operations, add the letter E after the classification Mallampati Classification Grade 3 Sedation Plan Analgesia, Amnesia, Plan communicated to team members, Discussed options with patient/fam, Discussed risks with patient/fam The patient is an appropriate candidate to undergo the planned procedure, sedation, and anesthesia. The patient immediately re-assessed prior to indication. NACHO FERRER MD Mar 29, 2021 08:44
--- NOTE | 2021-03-29 09:12 | Discharge Inst-Post CATH ---
Discharge Inst-CATH/EP Problems Reviewed?: Yes Post Cardiac Cath/EP D/C Inst Follow Up/Plan Appointment with Dr. Hampton's office in 2 to 4 weeks <b>CARDIAC CATH/EP PROCEDURE DISCHARGE INSTRUCTIONS</b> ACTIVITY * Go Home directly and rest. * Limit activity of the leg (or wrist if it was used) for 7 days including aer obics, swimming, jogging, bicycling, etc. * Restrict stair-climbing for 7 days if possible, if not, climb up with your non-cath leg, then bring together on the same step. * Avoid lifting, pushing, pulling or excessive movement of the affected extremi ty for 7 days. * Customary sexual activity may be resumed after 2 days-use caution not to use a position that strains or causes pain to the affected extremity. * No driving for 24 hours. * NO SMOKING. * Avoid straining for bowel movements for 7 days. * Gentle walking on level ground is allowed. * Returning to work will depend on the type of procedure and the results. Your doctor will discuss this with you. CALL YOUR DOCTOR FOR ANY OF THE FOLLOWING: *If bleeding from the puncture site occurs- Apply gentle pressure to site with clean cloth and call your doctor or EMS. * If a knot or lump forms under the skin, increases in size, or causes pain. * If bruising appears to be worsening or moving further down your leg instead of disappearing. * Temperature above 101 F. CARE OF YOUR GROIN INCISION; * Bruising or purple discoloration of the skin near the puncture site is common. * You may shower only, no bathtub bathing for 5 days. Be careful to avoid slipping as your leg may feel stiff. * If a closure device was used on your femoral artery, please see the attached guide regarding care of the device and your leg. * Leave dressing on FOR 24 hours. CARE OF YOUR WRIST INCISION; * Bruising or purple discoloration of the skin near the puncture site is common. * You may shower. * DO NOT submerge wrist. * Leave dressing on FOR 24 hours. NACHO HAMPTON MD Mar 29, 2021 09:12
[2021-03-29] MEDS ORDERED: PATIENT MAY USE OWN MEDS, ALL PO SCH (09:15)
[2021-03-29] MEDS ORDERED: NS IV 1000 ML 1,000 ML IV SCH (09:15)
--- NOTE | 2021-03-29 09:18 | Cardiac Cath Report ---
Cardiac Cath Report Physician (s)/Certified Adaptive Physical Educator (s) Physician NACHO FERRER MD Pre-Procedure Diagnosis Pre-Procedure Diagnosis: Coronary artery disease Post-Procedure Note Procedure Start Date: Mar 29, 2021 Name of Procedure: Left heart catheterization Vein graft angiogram LIM angiogram Findings/Procedure Note PROCEDURE NOTE: 85 years old gentleman with history of coronary artery disease, history of CABG, multiple interventions in the past, has been having chest pain, had mildly abnormal stress test, scheduled for cardiac catheterization possible PTCA After explaining the procedure to the patient, all pros and cons were explained, all questions were answered. The patient signed the consent and then he was placed on the cardiac catheterization laboratory. Groin was prepped SL fashion local anesthesia was used. Sheath placed in the right femoral artery. Sandra right and left catheter were used to access the coronary system.Vein Graft evaluated. LIM evaluated. Pigtail was used to access the left ventricular cavity. Left ventriculogram was not done, pressure was measured At the end of the procedure the sheath was removed. Closure device was deployed FINDINGS: Hemodynamics LV 130/20, end-diastolic pressure of 20 Aorta 129/61 mean of 87 ANATOMY: Left Main is free of obstructive disease Left Anterior Descending has severe disease diffusely, the LIM to the LAD is patent and the vein graft to the second diagonal branch is patent Left Circumflex is occluded, the vein graft to the obtuse marginal branch is patent Right Coronary Artery is large dominant artery, tortuous artery, has known 2 stents in the proximal and distal portion that are patent, proximal to the first stent there is a 50% stenosis that did not change compared to the previous study, small vessel disease distally LIM angiogram showed patent LIM to the LAD the distal LAD has severe diffuse disease, very small artery not amendable to intervention Vein Graft angiogram showed 2 markers for vein grafts The machine marker is known to have occluded vein graft probably to the first diagonal artery The lower marker has a vein graft jump graft to the diagonal artery and obtuse marginal branch that is patent, known to have a stent in the midportion that is patent, small vessel disease distally LV Gram was not done, pressure was measured CONCLUSION: 1. Patent LIM to the LAD, severe diffuse disease in the [place] LAD distally, very small artery not amendable to intervention 2. Patent vein graft jump graft to the diagonal artery and obtuse marginal artery with small vessel disease distally, patent stent in the mid vein graft 3. Large dominant right coronary artery, tortuous artery with Blanca hook curve in the proximal and distal portion, both stents are patent, proximal to the first stent there is an area of 50% stenosis that did not change compared to the previous study, small vessel disease distally 4. Known occluded vein graft probably to a diagonal branch DISCUSSION AND RECOMMENDATION: Continue to maximize medical therapy, chest pain is probably due to small vessel disease Anesthesia Type: Conscious Sedation Estimated blood loss (mL): 20 ml Contrast Amount: 37 ml Total Radiation Dose: 421 mGy Post-Procedure Diagnosis Post-operative diagnosis: Chest pain Coronary artery disease Hypertension Hyperlipidemia NACHO FERRER MD Mar 29, 2021 09:18
== END 2021-03-29 14:05 | disposition home or self-care (01) ==
LOC: CATH 08:00 → SDC 09:28 → CATH 14:05
PROVIDERS: ATTEND Internal Medicine Cardiovascular Disease
DX: I25.10 Atherosclerotic heart disease of native coronary artery without angina pectoris (principal); I10 Essential (primary) hypertension; E78.2 Mixed hyperlipidemia; I65.23 Occlusion and stenosis of bilateral carotid arteries; Z88.8 Allergy status to other drugs, medicaments and biological substances; Z79.82 Long term (current) use of aspirin; Z79.899 Other long term (current) drug therapy; Z87.891 Personal history of nicotine dependence; Z86.73 Personal history of transient ischemic attack (TIA), and cerebral infarction without residual deficits; Z95.0 Presence of cardiac pacemaker; Z95.1 Presence of aortocoronary bypass graft; Z95.5 Presence of coronary angioplasty implant and graft
CPT/HCPCS: 80053; 80061; 81000; 85027; 85610; 85730; 87081; 93459; C1760; C1894; 36415

== ENCOUNTER 2021-11-24 01:04 | Inpatient (IN) | payer MEDICARE ==
[~2021-11-24] VITALS: Ht 177 cm; Wt 86.6 kg
[~2021-11-24 01:04] MED LIST changes: -HEParin (CATH LAB) 2,000 ML IV ONE; -LIDOCAINE 1% INJ 20 ML 20 ML VIAL ONE; -MIDAZOLAM 5 MG/5 ML (VERSED) VIAL ONE; -NS IV 1000 ML 1,000 ML IV SCH; -NS IV 1000 ML 1,000 ML ONE; -fentaNYL INJ 100 MCG/2 ML AMP ONE
--- NOTE | 2021-11-24 01:19 | ED General ---
General Stated Complaint: CP,KIDNEY PAIN History of Present Illness Date Seen by Provider: Nov 24, 2021 Time Seen by Provider: 01:18 Initial Comments 86-year-old male with PMH of CAD (CABG over 20 years ago)/CVA/pacemaker, is here with complaints of left-sided chest discomfort with inability to take deep breaths on inspiration, and also left flank pain. Both symptoms started about 2 days ago. Denies fever, nausea vomiting, diaphoresis, abdominal pain, dysuria, hematuria. Patient has some associated shortness of breath, which is intermittent. Allergies and Home Medications Allergies Coded Allergies: nitroglycerin (Unverified Allergy, Severe, SYNCOPE, 10/23/19) Uqtslch-Rri-Jrw Reductase Inhibitor (Verified Adverse Reaction, Mild, JOINT PAIN, 10/23/19) Patient Home Medication List Home Medication List Reviewed: Yes Acetaminophen (Tylenol Extra Strength) 500 Mg Tablet, 1,000 MG PO DAILY, (Reported) Entered as Reported by: ELSY GALVAN on 03/29/21 0750 Amlodipine Besylate (Amlodipine Besylate) 5 Mg Tablet, 5 MG PO HS, (Reported) Entered as Reported by: ELSY GALVAN on 03/29/21 075 Aspirin (Aspirin EC) 81 Mg Tablet.dr, 81 MG PO DAILY, (Reported) Entered as Reported by: JOSETTE BREEN on 05/19/18 1011 Cholecalciferol (Vitamin D3) (Vitamin D3) 25 Mcg Tablet, 25 MCG PO HS, (Reported) Entered as Reported by: ELSY GALVAN on 03/29/21 075 Clopidogrel Bisulfate (Clopidogrel) 75 Mg Tablet, 75 MG PO DAILY, (Reported) Entered as Reported by: JENNIFER OSBORN on 12/23/18 0836 Cyanocobalamin (Vitamin B-12) (Vitamin B-12) 1,000 Mcg Tablet, 1,000 MCG PO HS, (Reported) Entered as Reported by: ELSY GALVAN on 03/29/21 075 Diltiazem HCl (Diltiazem 24Hr ER) 120 Mg Cap.er.24h, 120 MG PO DAILY, (Reported) Entered as Reported by: YARITZA RICO on 03/18/21 1531 Escitalopram Oxalate (Escitalopram Oxalate) 20 Mg Tablet, 20 MG PO DAILY, (Reported) Entered as Reported by: JAX FAYE on 10/23/19 0957 Ezetimibe (Ezetimibe) 10 Mg Tablet, 10 MG PO DAILY, (Reported) Entered as Reported by: JOSETTE BREEN on 05/19/18 1011 Fish Oil/Dha/Epa (Fish Oil 1,200 mg Fish Oil) 1 Each Capsule, 1 EACH PO HS, (Reported) Entered as Reported by: ELSY GALVAN on 03/29/21 0750 Gluc/[place]-MSM#2/C/D3/Juan M/Born (Znqrjjhzii-Oacvhjswmkt-QZK Tab) 1 Each Tablet, 1 EACH PO HS, (Reported) Entered as Reported by: JAX FAYE on 10/23/19 0957 Losartan Potassium (Losartan Potassium) 50 Mg Tablet, 50 MG PO DAILY, (Reported) Entered as Reported by: JENNIFER OSBORN on 12/23/18 0913 Metoprolol Tartrate (Metoprolol Tartrate) 50 Mg Tablet, 50 MG PO DAILY, (Reported) Entered as Reported by: HELGA LANE on 02/15/16 0926 Mirtazapine (Remeron) 15 Mg Tablet, 15 MG PO HS, (Reported) Entered as Reported by: JAX FAYE on 10/23/19 0957 Multivit-Min/FA/Lycopene/Lut (Centrum Silver Tablet) 1 Each Tablet, 1 EACH PO HS, (Reported) Entered as Reported by: JAX FAYE on 10/23/19 0957 Review of Systems Review of Systems Constitutional: no symptoms reported EENTM: no symptoms reported Respiratory: short of breath Cardiovascular: chest pain Gastrointestinal: no symptoms reported Genitourinary: no symptoms reported Musculoskeletal: no symptoms reported Skin: no symptoms reported Psychiatric/Neurological: No Symptoms Reported Hematologic/Lymphatic: No Symptoms Reported Immunological/Allergic: no symptoms reported Past Zmjjnlo-Pifmva-Agayvy Hx Immunizations Up To Date Tetanus Booster (TDap): Unknown PED Vaccines UTD: No First/Initial COVID19 Vaccinat: October Second COVID19 Vaccination Dionisio: November COVID19 Vaccination Date: NO Seasonal Allergies Seasonal Allergies: No Past Medical History Surgeries: Yes (L THR) Cardiac, CABG, Coronary Stent, Gallbladder, Orthopedic, Pacemaker, Transurethral Resection Respiratory: Yes (MILD DYSPNEA ON EXERTION) Asthma Currently Using CPAP: No Currently Using BIPAP: No Cardiac: Yes (CABG 1997, STENT 2014) Coronary Artery Disease, Heart Attack, High Cholesterol, Hypertension Neurological: Yes (TIA 09/2018--NO RESIDUAL ; CVA 2017--NO RESIDUAL) Stroke, TIA Reproductive Disorders: Yes (E.D.) Sexually Transmitted Disease: No HIV/AIDS: No Genitourinary: Yes (TURP) Benign Prostatic Hyperpl, Prostate Problems Gastrointestinal: No Gall Bladder Disease Musculoskeletal: Yes Arthritis, Fractures Endocrine: No HEENT: Yes (DENTURES) Cataract Loss of Vision: Denies Hearing Impairment: Hard of Hearing Cancer: Yes Prostate, Skin Did You Recieve Any Treatments: Yes What Type of Treatment Did You: Radiation, Surgical Intervention Psychosocial: No Integumentary: No Blood Disorders: No Adverse Reaction/Blood Tranf: Yes (HAS HAD BLOOD WITH NO REACTION) Family Medical History Alzheimer's disease 19 FATHER, Onset:60 years & older Cardiovascular disease 19 FATHER, Onset:15's - 20 (Was told that he had a "Leaky Heart") FH: brain cancer 19 MOTHER, Onset:60 years & older G8 BROTHER, Onset:50's - 60 FH: lung cancer 19 MOTHER, Onset:60 years & older FH: sudden G8 BROTHER, Onset:Childhood (Was ran over by a car at the age of 6.) Heart Disease, Hypertension Physical Exam Vital Signs Vital Signs - First Documented 11/24/21 01:12 Temp 36.9 Pulse 73 Resp 16 B/P (MAP) 139/99 (112) Pulse Ox 95 O2 Delivery Room Air Capillary Refill : Height, Weight, BMI Height: 5'9.00" Weight: 180lbs. 4.0oz. [id number]; 26.98 BMI Method:Estimated General Appearance: No Apparent Distress HEENT: PERRL/EOMI, Normal ENT Inspection Neck: Full Range of Motion, Normal Inspection, Non Tender Respiratory: Chest Non Tender, No Accessory Muscle Use, No Respiratory Distress, Crackles Cardiovascular: Regular Rate, Rhythm Gastrointestinal: Non Tender, Soft Back: Normal Inspection, No Vertebral Tenderness, CVA Tenderness (L) Extremity: Normal Inspection, Normal Range of Motion Neurologic/Psychiatric: Alert, Oriented x3, No Motor/Sensory Deficits, Normal Mood/Affect Skin: Normal Color Focused Exam Lactate Level 11/24/21 02:59: Lactic Acid Level 1.09 Lactic Acid Level Laboratory Tests Test 11/24/21 02:59 Lactic Acid Level 1.09 MMOL/L (0.50-2.00) Procedures/Interventions Suture Size: 5-0 Progress/Results/Core Measures Suspected Sepsis SIRS Temperature: Pulse: Respiratory Rate: Laboratory Tests 11/24/21 01:48: White Blood Count 12.9H Blood Pressure / Mean: 11/24/21 02:59: Lactic Acid Level 1.09 Laboratory Tests 11/24/21 01:48: Creatinine 1.27, INR Comment 1.1, Platelet Count 157, Total Bilirubin 1.1H Results/Orders Lab Results Laboratory Tests Test 11/24/21 01:48 11/24/21 02:59 11/24/21 03:55 Range/Units White Blood Count 12.9 H 4.3-11.0 10^3/uL Red Blood Count 4.04 L 4.30-5.52 10^6/uL Hemoglobin 12.2 L 13.3-17.7 g/dL Hematocrit 37 L 40-54 % Mean Corpuscular Volume 91 80-99 fL Mean Corpuscular Hemoglobin 30 25-34 pg Mean Corpuscular Hemoglobin Concent 33 32-36 g/dL Red Cell Distribution Width 14.0 10.0-14.5 % Platelet Count 157 130-400 10^3/uL Mean Platelet Volume 8.8 L 9.0-12.2 fL Immature Granulocyte % (Auto) 1 % Neutrophils (%) (Auto) 77 H 42-75 % Lymphocytes (%) (Auto) 7 L 12-44 % Monocytes (%) (Auto) 13 H 0-12 % Eosinophils (%) (Auto) 2 0-10 % Basophils (%) (Auto) 0 0-10 % Neutrophils # (Auto) 9.9 H 1.8-7.8 10^3/uL Lymphocytes # (Auto) 1.0 1.0-4.0 10^3/uL Monocytes # (Auto) 1.6 H 0.0-1.0 10^3/uL Eosinophils # (Auto) 0.3 0.0-0.3 10^3/uL Basophils # (Auto) 0.0 0.0-0.1 10^3/uL Immature Granulocyte # (Auto) 0.1 0.0-0.1 10^3/uL Neutrophils % (Manual) 77 % Lymphocytes % (Manual) 9 % Monocytes % (Manual) 13 % Eosinophils % (Manual) 1 % Blood Morphology Comment NORMAL Prothrombin Time 14.7 12.2-14.7 SEC INR Comment 1.1 0.8-1.4 Activated Partial Thromboplast Time 35 24-35 SEC D-Dimer 3.41 H 0.00-0.49 UG/ML Sodium Level 139 135-145 MMOL/L Potassium Level 4.0 3.6-5.0 MMOL/L Chloride Level 104 98-107 MMOL/L Carbon Dioxide Level 23 21-32 MMOL/L Anion Gap 12 5-14 MMOL/L Blood Urea Nitrogen 24 H 7-18 MG/DL Creatinine 1.27 0.60-1.30 MG/DL Estimat Glomerular Filtration Rate 56 BUN/Creatinine Ratio 19 Glucose Level 136 H 70-105 MG/DL Calcium Level 8.9 8.5-10.1 MG/DL Corrected Calcium 9.1 8.5-10.1 MG/DL Magnesium Level 1.7 1.6-2.4 MG/DL Total Bilirubin 1.1 H 0.1-1.0 MG/DL Aspartate Amino Transf (AST/SGOT) 14 5-34 U/L Alanine Aminotransferase (ALT/SGPT) 21 0-55 U/L Alkaline Phosphatase 67 40-136 U/L Troponin I 0.040 H < 0.028 <0.028 NG/ML Total Protein 6.4 6.4-8.2 GM/DL Albumin 3.7 3.2-4.5 GM/DL Procalcitonin 0.04 <0.10 NG/ML Lactic Acid Level 1.09 0.50-2.00 MMOL/L Urine Color YELLOW Urine Clarity CLEAR Urine pH 6.0 5-9 Urine Specific Branch 1.025 H 1.016-1.022 Urine Protein NEGATIVE NEGATIVE Urine Glucose (UA) NEGATIVE NEGATIVE Urine Ketones NEGATIVE NEGATIVE Urine Nitrite NEGATIVE NEGATIVE Urine Bilirubin NEGATIVE NEGATIVE Urine Urobilinogen 2.0 < = 1.0 MG/DL Urine Leukocyte Esterase NEGATIVE NEGATIVE Urine RBC (Auto) NEGATIVE NEGATIVE Urine RBC 0-2 /HPF Urine WBC 0-2 /HPF Urine Squamous Epithelial Cells 0-2 /HPF Urine Crystals NONE /LPF Urine Bacteria NEGATIVE /HPF Urine Casts NONE /LPF Urine Mucus SMALL H /LPF Urine Culture Indicated NO My Orders Orders - STEFANI NULL MD Ekg Tracing (11/24/21 01:11) Chest 1 View, Ap/Pa Only (11/24/21 01:39) Ct Abd/Pelvis Wo(Kidney Stone) (11/24/21 01:39) Cbc With Automated Diff (11/24/21 01:40) Comprehensive Metabolic Panel (11/24/21 01:40) Fibrin Degradation Products (11/24/21 01:40) Magnesium (11/24/21 01:40) Procalcitonin (Pct) (11/24/21 01:40) Protime With Inr (11/24/21 01:40) Partial Thromboplastin Time (11/24/21 01:40) Ua Culture If Indicated (11/24/21 01:40) Troponin I [place] (11/24/21 01:40) Manual Differential (11/24/21 01:48) Aspirin Chewable Tablet (Baby Aspirin Ch (11/24/21 03:00) Ct Angio Chest W (11/24/21 02:48) Troponin I [place] (11/24/21 02:52) Ekg Tracing (11/24/21 02:52) Blood Culture (11/24/21 02:56) Lactic Acid Analyzer (11/24/21 02:56) Ceftriaxone 1 Gm Pre-Mix (Rocephin 1 Gm (11/24/21 03:00) Azithromycin Injection (Zithromax Inject (11/24/21 03:00) Iohexol Injection (Omnipaque 350 Mg/Ml 1 (11/24/21 04:00) Sodium Chloride Flush (Catheter Flush Sy (11/24/21 04:00) Ns (Ivpb) (Sodium Chloride 0.9% Ivpb Bag (11/24/21 04:00) Heparin (Bolus Per Protocol) (Heparin (B (11/24/21 06:00) Apixaban Tablet (Eliquis Tablet) (11/24/21 06:55) Medications Given in ED Current Medications Medications Dose Ordered Sig/Leana Route Start Time Stop Time Status Last Admin Dose Admin Aspirin 324 mg ONCE ONCE PO 11/24/21 03:00 11/24/21 03:01 DC 11/24/21 02:55 324 MG Azithromycin 500 mg/Sodium Chloride 255 ml @ 250 mls/hr ONCE ONCE IV 11/24/21 03:00 11/24/21 04:01 DC 11/24/21 03:46 250 MLS/HR Ceftriaxone Sodium/Dextrose 50 ml @ 100 mls/hr ONCE ONCE IV 11/24/21 03:00 11/24/21 03:29 DC 11/24/21 03:18 100 MLS/HR Iohexol 100 ml ONCE ONCE IV 11/24/21 04:00 11/24/21 04:01 DC 11/24/21 03:56 90 ML Sodium Chloride 10 ml NEEDED PRN IV 11/24/21 04:00 11/24/21 03:56 10 ML Sodium Chloride 100 ml ONCE ONCE IV 11/24/21 04:00 11/24/21 04:01 DC 11/24/21 03:56 80 ML Vital Signs/I&O 11/24/21 01:12 Temp 36.9 Pulse 73 Resp 16 B/P (MAP) 139/99 (112) Pulse Ox 95 O2 Delivery Room Air Capillary Refill : Progress Note : Progress Note 1. LEFT LOWER LOBE PNEUMONIA: - CXR: left lower lobe consolidation - Blood culture - WBC is 12.9 with a left shift - Ceftriaxone 1gm iv and Azithro 500mg iv given in ER 2. PULMONARY EMBOLISM: - Elevated D-dimer: 3.41 - CTA CHEST: 2 pulmonary emboli in the left lung - Discussed with hospitalist , Dr Powers, and will admit to step down, Will start pt on Eliquis 10mg STAT 3. DEMAND ISCEMIA DUE TO PE: - First troponin is 0.40, and second troponin is 0.028 - No significant changes on EKG Departure Impression Primary Impression: Pulmonary embolism Qualified Codes: I26.94 - Multiple subsegmental pulmonary emboli without acute cor pulmonale Additional Impressions: Ischemia due to increased oxygen demand Left lower lobe pneumonia Qualified Codes: J18.9 - Pneumonia, unspecified organism Disposition: 30 STILL A PATIENT Condition: Stable Admissions Decision to Admit Reason: Admit from ER (General) Decision to Admit/Date: Nov 24, 2021 Time/Decision to Admit Time: 06:35 Departure-Patient Inst. Referrals: BEVERLEY YOUNGER MD (PCP/Family) Primary Care Physician STEFANI NULL MD Nov 24, 2021 01:18
[2021-11-24 01:53] LABS: BASOPHILS % (AUTO) 0 % (0-10); EOSINOPHILS # (AUTO) 0.3 10^3/uL (0.0-0.3); EOSINOPHILS % (AUTO) 2 % (0-10); HEMATOCRIT 37 % (40-54); HEMOGLOBIN 12.2 g/dL (13.3-17.7); LYMPHOCYTES % (AUTO) 7 % (12-44); MEAN CORPUSCULAR HEMOGLOBIN 30 pg (25-34); MEAN CORPUSCULAR HGB CONC 33 g/dL (32-36); MEAN CORPUSCULAR VOLUME 91 fL (80-99); MEAN PLATELET VOLUME 8.8 fL (9.0-12.2); MONOCYTES # (AUTO) 1.6 10^3/uL (0.0-1.0); MONOCYTES % (AUTO) 13 % (0-12); NEUTROPHILS # (AUTO) 9.9 10^3/uL (1.8-7.8); NEUTROPHILS % (AUTO) 77 % (42-75); PLATELET COUNT 157 10^3/uL (130-400); WHITE BLOOD COUNT 12.9 10^3/uL (4.3-11.0)
[2021-11-24 02:11] LABS: FIBRIN DEGRADATION PRODUCTS 3.41 UG/ML (0.00-0.49); INR 1.1 (0.8-1.4); PROTHROMBIN TIME PATIENT 14.7 SEC (12.2-14.7)
[2021-11-24 02:16] LABS: ALBUMIN 3.7 GM/DL (3.2-4.5)
[2021-11-24 02:18] LABS: CALCIUM 8.9 MG/DL (8.5-10.1)
[2021-11-24 02:19] LABS: TOTAL PROTEIN 6.4 GM/DL (6.4-8.2)
[2021-11-24 02:21] LABS: BILIRUBIN,TOTAL 1.1 MG/DL (0.1-1.0)
[2021-11-24 02:22] LABS: CREATININE SERUM 1.27 MG/DL (0.60-1.30)
[2021-11-24 02:26] LABS: MAGNESIUM 1.7 MG/DL (1.6-2.4)
[2021-11-24 02:43] LABS: EOSINOPHILS % (MANUAL) 1 %; LYMPHOCYTES % (MANUAL) 9 %; MONOCYTES % (MANUAL) 13 %; NEUTROPHILS % (MANUAL) 77 %; RBC MORPH NORMAL
[2021-11-24] MEDS ORDERED: cefTRIAXone 1 GM PRE-MIX 50 ML IV ONE (03:00)
[2021-11-24] MEDS ORDERED: AZITHROMYCIN INJECTION 500 MG in NS (IVPB) 250 ML IV ONE (03:00)
[2021-11-24] MEDS ORDERED: ASPIRIN 81 MG CHEW (CHILDREN'S ASA) PO ONE (03:00)
[2021-11-24] MEDS ORDERED: NS 100 ML (IVPB) BAG IV ONE (04:00)
[2021-11-24] MEDS ORDERED: CATHETER FLUSH 10 ML SYR IV PRN (04:00)
[2021-11-24] MEDS ORDERED: IOHEXOL 350 MG/ML 100 ML (OMNIPAQUE 350) VIAL IV ONE (04:00)
[2021-11-24 04:01] LABS: BILIRUBIN,URINE NEGATIVE (NEGATIVE); CLARITY,URINE CLEAR; COLOR,URINE YELLOW; GLUCOSE, URINE (UA) NEGATIVE (NEGATIVE); KETONES,URINE NEGATIVE (NEGATIVE); LEUKOCYTE ESTERASE ,URINE NEGATIVE (NEGATIVE); NITRITE,URINE NEGATIVE (NEGATIVE); PROTEIN,URINE NEGATIVE (NEGATIVE)
[2021-11-24 04:18] LABS: BACTERIA,URINE NEGATIVE /HPF; RBC,URINE 0-2 /HPF; SQUAMOUS EPITHELIAL CELL,UR 0-2 /HPF; WBC,URINE 0-2 /HPF
--- NOTE | 2021-11-24 05:44 | Diagnostic Imaging Report ---
PROCEDURE: CT angiography of the chest with contrast. TECHNIQUE: Multiple contiguous axial images were obtained through the chest after uneventful bolus administration of intravenous contrast. 3D reconstructed CTA MIP acquisitions were also performed. Auto Exposure Controls were utilized during the CT exam to meet ALARA standards for radiation dose reduction. INDICATION: Left chest wall pain There are patchy consolidations in the anterior basal segment of left lower lobe and in the posterior basal segment left lower lobe. There are postoperative changes from CABG surgery. There is aortic and coronary atherosclerosis. There is no evidence of right ventricular strain. There is a pulmonary embolus in the left lower lobe pulmonary artery. There is also embolus in the left upper lobe. There are no effusions or pneumothoraces. There is no hilar or mediastinal lymphadenopathy. IMPRESSION: There are at least 2 pulmonary emboli in segmental branches in the left lung with corresponding areas of consolidation in the periphery of the lungs that could be due to pulmonary infarcts. Dictated by: Dictated on workstation # [id number]
[2021-11-24] MEDS ORDERED: HEParin 1000 UNIT/ML (10ML VIAL) FOR BOLUS IV SCH (06:00)
--- NOTE | 2021-11-24 06:19 | Diagnostic Imaging Report ---
HISTORY: Pleurisy, left chest wall pain TECHNIQUE: Frontal view of the chest COMPARISON: 03/18/2021 FINDINGS: Lung volumes are mildly low. There is airspace consolidation in the left lung base. There is no pneumothorax. There may be a small left pleural effusion. The left pacemaker leads appear stable. Sternotomy wires and post-CABG changes are seen. The cardiac silhouette is normal in size. There are degenerative changes in the shoulders and spine with bilateral chronic rotator cuff injuries. IMPRESSION: 1. Left basilar airspace opacity, concerning for infection in the appropriate clinical setting. There may be a small left pleural effusion. Dictated by: Dictated on workstation # [id number]
--- NOTE | 2021-11-24 06:19 | Diagnostic Imaging Report ---
PROCEDURE: CT urinary tract, rule out kidney stone. TECHNIQUE: Multiple contiguous axial images were obtained through the abdomen and pelvis without the use of intravenous contrast. Auto Exposure Controls were utilized during the CT exam to meet ALARA standards for radiation dose reduction. INDICATION: Left flank pain. Left chest wall pain COMPARISON: 09/17/2013 FINDINGS: The left lung base demonstrates airspace consolidation with small internal cavitation measuring about 4.6 x 3.0 cm in size. There is additional airspace and groundglass opacity in the left lower lobe. A calcified granuloma is noted in the left lower lobe. There is a calcified granuloma in the right lower lobe. The heart is normal in size. There is coronary atherosclerosis. The liver demonstrates no focal lesions. Cholecystectomy clips are noted. The spleen appears normal. The pancreas is normal. The adrenal glands appear normal. The right kidney has multiple simple appearing cysts with no hydronephrosis or renal calculi. The left kidney also demonstrates no hydronephrosis or renal calculi. The appendix is normal. The bowel loops are nondistended without obstruction. There is diverticulosis throughout the colon without diverticulitis. No free fluid or free air is seen. There is aortic atherosclerosis. The aorta is normal in caliber. There is a small fat-containing right inguinal hernia. There are prostatectomy changes with multiple seeds noted in the prostate bed. There is a left hip arthroplasty and severe degenerative change in the right hip. There are degenerative changes in the spine. IMPRESSION: 1. Airspace consolidation in the left lower lobe with small internal cavitation. This is most concerning for pneumonia. Underlying neoplasm is not excluded and follow-up to resolution is recommended. No significant changes from the preliminary report. Dictated by: Dictated on workstation # [id number]
[2021-11-24] MEDS ORDERED: APIXABAN 5 MG (ELIQUIS) TABLET PO STA (06:55)
[2021-11-24 08:05] VITALS: BP 149/79
[2021-11-24 12:00] VITALS: BP 166/86
--- NOTE | 2021-11-24 13:07 | History & Physical ---
History of Present Illness History of Present Illness Reason for visit/HPI This is an 86 year old male with a history of CAD, previous CVA and pacemaker who presented to the emergency room with left sided chest pain and difficulty taking a deep breath. He stated that this started about 2 days ago. Last night the pain was worth when he lied down and he could not get comfortable so he presented to the emergency room for evaluation. He was found to have 2 small le ft sided PEs as well as a left sided infiltrate. He will be admitted for IV antibiotics and started on eliquis with cardiology consult. Date of Admission Nov 24, 2021 at 07:15 Date Seen by a Provider: Nov 24, 2021 Time Seen by a Provider: 10:30 I consulted on this patient on 11/24/21 13:02 Attending Physician Susannah Dumont MD Admitting Physician Admitting Physician: Aura Powers DO Attending Physician: Aura Powers DO Consult Allergies and Home Medications Allergies Coded Allergies: nitroglycerin (Unverified Allergy, Severe, SYNCOPE, 10/23/19) Zxnejnm-BCS-YgD Reductase Inhibitor (Verified Adverse Reaction, Mild, JOINT PAIN, 10/23/19) Patient Home Medication List Home Medication List Reviewed: Yes Acetaminophen (Tylenol Extra Strength) 500 Mg Tablet, 1,000 MG PO DAILY, (Reported) Entered as Reported by: ELSY GALVAN on 03/29/21 075 Amlodipine Besylate (Amlodipine Besylate) 5 Mg Tablet, 5 MG PO HS, (Reported) Entered as Reported by: ELSY GALVAN on 03/29/21 075 Aspirin (Aspirin EC) 81 Mg Tablet.dr, 81 MG PO DAILY, (Reported) Entered as Reported by: JOSETTE BREEN on 05/19/18 1011 Cholecalciferol (Vitamin D3) (Vitamin D3) 25 Mcg Tablet, 25 MCG PO HS, (Reported) Entered as Reported by: ELSY GALVAN on 03/29/21 075 Clopidogrel Bisulfate (Clopidogrel) 75 Mg Tablet, 75 MG PO DAILY, (Reported) Entered as Reported by: JENNIFER OSBORN on 12/23/18 0836 Cyanocobalamin (Vitamin B-12) (Vitamin B-12) 1,000 Mcg Tablet, 1,000 MCG PO HS, (Reported) Entered as Reported by: ELSY GALVAN on 03/29/21 0750 Diltiazem HCl (Diltiazem 24Hr ER) 120 Mg Cap.er.24h, 120 MG PO DAILY, (Reported) Entered as Reported by: YARITZA RICO on 03/18/21 1531 Escitalopram Oxalate (Escitalopram Oxalate) 20 Mg Tablet, 20 MG PO DAILY, (Reported) Entered as Reported by: JAX FAYE on 10/23/19 0957 Ezetimibe (Ezetimibe) 10 Mg Tablet, 10 MG PO DAILY, (Reported) Entered as Reported by: JOSETTE BREEN on 05/19/18 1011 Fish Oil/Dha/Epa (Fish Oil 1,200 mg Fish Oil) 1 Each Capsule, 1 EACH PO HS, (Reported) Entered as Reported by: ELSY GALVAN on 03/29/21 0750 Gluc/[place]-MSM#2/C/D3/Juan M/Born (Ajruwbnulq-Uezjvfzkqsu-VPI Tab) 1 Each Tablet, 1 EACH PO HS, (Reported) Entered as Reported by: JAX FAYE on 10/23/19 0957 Losartan Potassium (Losartan Potassium) 50 Mg Tablet, 50 MG PO DAILY, (Reported) Entered as Reported by: JENNIFER OSBORN on 12/23/18 0913 Metoprolol Tartrate (Metoprolol Tartrate) 50 Mg Tablet, 50 MG PO DAILY, (Reported) Entered as Reported by: HELGA LANE on 02/15/16 0926 Mirtazapine (Remeron) 15 Mg Tablet, 15 MG PO HS, (Reported) Entered as Reported by: JAX FAYE on 10/23/19 0957 Multivit-Min/FA/Lycopene/Lut (Centrum Silver Tablet) 1 Each Tablet, 1 EACH PO HS, (Reported) Entered as Reported by: JAX FAYE on 10/23/19 0957 Past Csjvbst-Vuqmgq-Oedgfw Hx Patient Social History Marrital Status: Employed/Student: retired Tobacco Use?: No Smoking Status: Former Smoker Use of E-Cig and/or Vaping dev: No Substance use?: No Alcohol Use?: No Alcohol Frequency: Once in a while Pt feels they are or have been: No Immunizations Up To Date First/Initial COVID19 Vaccinat: 2020 Second COVID19 Vaccination Dionisio: 2020 Tetanus Booster (TDap): Unknown Hepatitis A: No Hepatitis B: No PED Vaccines UTD: No Seasonal Allergies Seasonal Allergies: No Current Status Advance Directives: No Communicates: Verbally Primary Language: Serbian Preferred Spoken Language: Serbian Is interpretation needed?: No Sensory deficits: Hearing impairment Implanted or Applied Medical D: Heart mechanical device Past Medical History Surgeries: Cardiac, CABG, Coronary Stent, Gallbladder, Orthopedic, Pacemaker, Transurethral Resection Asthma Currently Using CPAP: No Currently Using BIPAP: No Coronary Artery Disease, Heart Attack, High Cholesterol, Hypertension Stroke, TIA Sexually Transmitted Disease: No HIV/AIDS: No Benign Prostatic Hyperpl, Prostate Problems Gall Bladder Disease Arthritis, Fractures Cataract Loss of Vision: Denies Hearing Impairment: Hard of Hearing Prostate, Skin Did You Recieve Any Treatments: Yes What Type of Treatment Did You: Radiation, Surgical Intervention Blood Disorders: No Adverse Reaction/Blood Tranf: Yes (HAS HAD BLOOD WITH NO REACTION) Family Medical History Alzheimer's disease 19 FATHER, Onset:60 years & older Cardiovascular disease 19 FATHER, Onset:15's - 20 (Was told that he had a "Leaky Heart") FH: brain cancer 19 MOTHER, Onset:60 years & older G8 BROTHER, Onset:50's - 60 FH: lung cancer 19 MOTHER, Onset:60 years & older FH: sudden G8 BROTHER, Onset:Childhood (Was ran over by a car at the age of 6.) Heart Disease, Hypertension Review of Systems Constitutional: weakness EENTM: No see HPI, No no symptoms reported, No ear discharge, No hearing loss, No ear pain, No blurred vision, No double vision, No eye pain, No tearing, No vision loss, No dental problems, No hoarseness, No mouth pain, No mouth swelling, No epistaxis, No nose congestion, No nose pain, No throat pain, No throat swelling, No other Respiratory: short of breath Cardiovascular: chest pain Gastrointestinal: No RUQ, No LUQ, No RLQ, No LLQ, No no symptoms reported, No see HPI, No abdominal pain, No constipation, No diarrhea, No dysphagia, No hematemesis, No heartburn, No jaundice, No loss of appetite, No melena, No naus ea, No vomiting, No other Genitourinary: No no symptoms reported, No see HPI, No decreased output, No discharge, No dysuria, No frequency, No hematuria, No hesitancy, No incontinence, No nocturia, No pain, No other Musculoskeletal: back pain, other (left chest pain) Skin: No no symptoms reported, No see HPI, No change in color, No change in hair/nails, No dryness, No hx of skin cancer, No lesions, No lumps, No pruritus, No rash, No other Psychiatric/Neurological: Denies No Symptoms Reported, Denies See HPI, Denies Anxiety, Denies Depressed, Denies Emotional Problems, Denies Headache, Denies Numbness, Denies Paresthesia, Denies Pre-Existing Deficit, Denies Seizure, Denies Tingling, Denies Tremors, Denies Weakness, Denies Other Physical Exam Vital Signs Vital Signs - First Documented 11/24/21 01:12 Temp 36.9 Pulse 73 Resp 16 B/P (MAP) 139/99 (112) Pulse Ox 95 O2 Delivery Room Air Capillary Refill : Less Than 3 Seconds Height, Weight, BMI Height: 5'9.00" Weight: 180lbs. 4.0oz. [id number]; 28.24 BMI Method:Estimated General Appearance: No Apparent Distress HEENT: Normal ENT Inspection Neck: Supple Respiratory: Crackles (bibasilarly--worse on left), Decreased Breath Sounds Cardiovascular: Regular Rate, Rhythm, Systolic Murmur Gastrointestinal: Non Tender, Soft Rectal: Deferred Back: No CVA Tenderness Extremity: Non Tender, No Calf Tenderness, No Pedal Edema Neurologic/Psychiatric: Alert, Oriented x3 Skin: Warm/Dry Comments Laboratory Tests 11/24/21 01:48: White Blood Count 12.9H, Red Blood Count 4.04L, Hemoglobin 12.2L, Hematocrit 37L , Mean Corpuscular Volume 91, Mean Corpuscular Hemoglobin 30, Mean Corpuscular Hemoglobin Concent 33, Red Cell Distribution Width 14.0, Platelet Count 157, Mean Platelet Volume 8.8L, Immature Granulocyte % (Auto) 1, Neutrophils (%) (Auto) 77H, Lymphocytes (%) (Auto) 7L, Monocytes (%) (Auto) 13H, Eosinophils (%) (Auto) 2, Basophils (%) (Auto) 0, Neutrophils # (Auto) 9.9H, Lymphocytes # (Auto) 1.0, Monocytes # (Auto) 1.6H, Eosinophils # (Auto) 0.3, Basophils # (Auto) 0.0, Immature Granulocyte # (Auto) 0.1, Neutrophils % (Manual) 77, Lymphocytes % (Manual) 9, Monocytes % (Manual) 13, Eosinophils % (Manual) 1, Blood Morphology Comment NORMAL, Prothrombin Time 14.7, INR Comment 1.1, Activated Partial Thromboplast Time 35, D-Dimer 3.41H, Sodium Level 139, Potassium Level 4.0, Chloride Level 104, Carbon Dioxide Level 23, Anion Gap 12, Blood Urea Nitrogen 24H, Creatinine 1.27, Estimat Glomerular Filtration Rate 56, BUN/Creatinine Ratio 19, Glucose Level 136H, Calcium Level 8.9, Corrected Calcium 9.1, Magnesium Level 1.7, Total Bilirubin 1.1H, Aspartate Amino Transf (AST/SGOT) 14, Alanine Aminotransferase (ALT/SGPT) 21, Alkaline Phosphatase 67, Troponin I 0.040H, Total Protein 6.4, Albumin 3.7, Procalcitonin 0.04 11/24/21 02:59: Troponin I < 0.028, Lactic Acid Level 1.09 11/24/21 03:55: Urine Color YELLOW, Urine Clarity CLEAR, Urine pH 6.0, Urine Specific Sap[place] 1.025H, Urine Protein NEGATIVE, Urine Glucose (UA) NEGATIVE, Urine Ketones NEGATIVE, Urine Nitrite NEGATIVE, Urine Bilirubin NEGATIVE, Urine Urobilinogen 2.0, Urine Leukocyte Esterase NEGATIVE, Urine RBC (Auto) NEGATIVE, Urine RBC 0- 2, Urine WBC 0-2, Urine Squamous Epithelial Cells 0-2, Urine Crystals NONE, Urine Bacteria NEGATIVE, Urine Casts NONE, Urine Mucus SMALLH, Urine Culture Indicated NO Assessment/Plan Assessment and Plan 1. Left Sided Pulmonary Embolism--admitted and loading with eliquis 10mg po BID for 1 week then will switch to eliquis 5mg po BID, will check venous doppler of LEs 2. Left Sided Pneumonia--cover with rocephin and zithromax, start IS, start SVNS with duoneb 3. History of CAD--patient is still on eliquis/aspirin, will consult cardiology to see if plavix/aspirin still needed 4. History of CVA--fully recovered, has been maintained on aspirin/plavix and BP control, statin intolerant 5. Hypertension--BP currently stable, will resume home meds once meds reconciled Admission Diagnosis Admission Status: Inpatient Order (span 2 midnights) Reason for Inpatient Admission: Will need at least 48hrs of antibiotics Clinical Quality Measures AMI/AHF: ASA po Prior to arrival: Yes AURA POWERS DO Nov 24, 2021 13:07
--- NOTE | 2021-11-24 13:41 | Diagnostic Imaging Report ---
PROCEDURE: US Venous Lower Ext Oneil. TECHNIQUE: Multiple real-time grayscale images were obtained over the lower extremities in various projections, bilaterally. Additional duplex Doppler and color Doppler images were also obtained. INDICATION: Pulmonary emboli. FINDINGS: Right lower extremity deep venous system shows normal compressibility with normal response to augmentation and Valsalva. Left common femoral and superficial femoral veins are widely patent. There is partial thrombus identified in the left popliteal vein. There may be a small amount of clot identified in the left calf veins. No fluid collection or mass is detected. IMPRESSION: 1. No evidence of right lower extremity DVT. 2. DVT in the left popliteal vein as well as left calf veins. Dictated by: Dictated on workstation # [id number]
[2021-11-24] MEDS: RT-ALBUTEROL/IPRATROPIUM 3 ML (DUONEB) VIAL INH SCH ×3 (14:40→22:51)
[2021-11-24] MEDS ORDERED: LOSA100T57 PO (15:04)
[2021-11-24] MEDS ORDERED: DILT240C91 PO (15:04)
[2021-11-24 16:00] VITALS: BP 120/68
--- NOTE | 2021-11-24 16:49 | Consultation-Cardiology ---
HPI-Cardiology Cardiology Consultation: Date of Consultation 11/24/21 Date of Admission 11/24/21 Attending Physician Susannah Dumont MD Admitting Physician Admitting Physician: Lavinia Powers DO Attending Physician: Lavinia Powers DO Consulting Physician RONAK AKINS JR, MD HPI: Time Seen by a Provider: 16:45 Chief Complaint: REASON FOR CONSULTATION: Anticoagulant management in the setting of newly diagnosed pulmonary embolism. I had the pleasure of seeing Angela on the cardiac stepdown unit at [facility] in [place], [place] today. He has a history of coronary artery disease with previous coronary bypass surgery as well as several coronary stents over the year, sick sinus syndrome with a previous pacemaker implantation, hypertension, and hyperlipidemia among several other less clinically significant issues. He was in his usual state of reasonably good health until about 2 days ago when he started developing left-sided pleuritic chest pain associated with shortness of breath. This did not feel anything like the chest discomfort he would experience prior to his coronary stents or his bypass surgery. He did not seek immediate medical attention. Yesterday he came into town and did some errands and then last evening went out to watch [employer]. However, when he got home his chest was so uncomfortable and his shortness of breath was getting worse so he came to the emergency room. He denies any cough, fever, chills, or night sweats. During his evaluation he was found to have 2 small left-sided pulmonary emboli as well as probable pneumonia and he was admitted for further treatment and evaluation. When I saw him this afternoon, he was still having a fair amount of pleuritic chest pain. He denies any risk factors for deep venous thrombosis or any previous history of pulmonary emboli. He denies paroxysmal nocturnal dyspnea, orthopnea, palpitations, lightheadedness, syncope, or ankle edema. He has been on prolonged dual antiplatelet therapy due to his multiple coronary interventions. Now he will need to be on oral anticoagulation and as such, the primary provider asked about management of these antiplatelet/anticoagulant agents. Certain portions of this document may have been dictated utilizing voice recognition technology. Inherent to this technology, typographical and grammatical errors may exist. As much as I am diligent to identify and correct these mistakes, some errors may remain in the document. Review of Systems-Cardiology Review of Systems Other comments Review of 10 organ systems is as per the history of present illness, otherwise negative. JCV-Yzcdei-Ypvnbb Hx Patient Social History Marrital Status: Employed/Student: retired Smoking Status: Former Smoker Former smoker/When Quit: Apr 30, 1996 2nd Hand Smoke Exposure: Yes Have you traveled recently?: No Alcohol Use?: No Pt feels they are or have been: No Immunizations Up To Date Tetanus Booster (TDap): Unknown Past Medical History PMH As described under Assessment. Family Medical History Family History: Alzheimer's disease 19 FATHER, Onset:60 years & older Cardiovascular disease 19 FATHER, Onset:15 - (Was told that he had a "Leaky Heart") FH: brain cancer 19 MOTHER, Onset:60 years & older G8 BROTHER, Onset:50's - 60 FH: lung cancer 19 MOTHER, Onset:60 years & older FH: sudden G8 BROTHER, Onset:Childhood (Was ran over by a car at the age of 6.) Allergies and Home Medications Allergies Coded Allergies: nitroglycerin (Unverified Allergy, Severe, SYNCOPE, 10/23/19) Uubjglx-XAG-FcU Reductase Inhibitor (Verified Adverse Reaction, Mild, JOINT PAIN, 10/23/19) Patient Home Medication List Home Medication List Reviewed: Yes Acetaminophen (Tylenol Extra Strength) 500 Mg Tablet, 500-1,000 MG PO Q8H PRN for PAIN-MILD (1-4), (Reported) Entered as Reported by: ELSY GALVAN on 03/29/21749 Last Action: Reviewed Aspirin (Aspirin EC) 81 Mg Tablet.dr, 81 MG PO DAILY, (Reported) Entered as Reported by: JOSETTE BREEN on 05/19/18 1011 Last Action: Held Cholecalciferol (Vitamin D3) (Vitamin D3) 25 Mcg Tablet, 25 MCG PO HS, (Reported) Entered as Reported by: ELSY GALVAN on 03/29/21 075 Last Action: Continued Clopidogrel Bisulfate (Clopidogrel) 75 Mg Tablet, 75 MG PO DAILY, (Reported) Entered as Reported by: JENNIFER OSBORN on 12/23/18 0836 Last Action: Continued Cyanocobalamin (Vitamin B-12) (Vitamin B-12) 1,000 Mcg Tablet, 1,000 MCG PO HS, (Reported) Entered as Reported by: ELSY GALVAN on 03/29/21749 Last Action: Continued Diltiazem HCl (Diltiazem 24Hr ER) 240 Mg Cap.er.24h, 240 MG PO HS, (Reported) Entered as Reported by: JENNIFER OSBORN on 11/24/21 1504 Last Action: Continued Escitalopram Oxalate (Escitalopram Oxalate) 20 Mg Tablet, 20 MG PO HS, (Reported) Entered as Reported by: JAX FAYE on 10/23/19 09 Last Action: Converted Ezetimibe (Ezetimibe) 10 Mg Tablet, 10 MG PO HS, (Reported) Entered as Reported by: JOSETTE BREEN on 05/19/18 1011 Last Action: Continued Fish Oil/Dha/Epa (Fish Oil 1,200 mg Fish Oil) 1 Each Capsule, 1 EACH PO HS, (Reported) Entered as Reported by: ELSY GALVAN on 03/29/21749 Last Action: Converted Losartan Potassium (Losartan Potassium) 100 Mg Tablet, 100 MG PO DAILY, (Reported) Entered as Reported by: JENNIFER OSBORN on 11/24/21 1504 Last Action: Continued Metoprolol Tartrate (Metoprolol Tartrate) 50 Mg Tablet, 50 MG PO DAILY, (Reported) Entered as Reported by: HELGA LANE on 02/15/16 0926 Last Action: Held Mirtazapine (Remeron) 15 Mg Tablet, 15 MG PO HS, (Reported) Entered as Reported by: JAX FAYE on 10/23/19956 Last Action: Converted Multivit-Min/FA/Lycopene/Lut (Centrum Silver Tablet) 1 Each Tablet, 1 EACH PO HS, (Reported) Entered as Reported by: JAX FAYE on 10/23/19956 Last Action: Converted Discontinued Medications Amlodipine Besylate (Amlodipine Besylate) 5 Mg Tablet, 5 MG PO HS, (Reported) Discontinued Reason: Duplicate Order Entered as Reported by: LESY GALVAN on 03/29/21749 Last Action: Discontinued Diltiazem HCl (Diltiazem 24Hr ER) 120 Mg Cap.er.24h, 120 MG PO DAILY, (Reported) Discontinued Reason: No Longer Taking Entered as Reported by: YARITZA RICO on 03/18/21 1531 Last Action: Discontinued Gluc/Augustine-MSM#2/C/D3/Juan M/Born (Iumtfentwu-Jiaxngzvlfd-AAD Tab) 1 Each Tablet, 1 EACH PO HS, (Reported) Discontinued Reason: Duplicate Order Entered as Reported by: JAX FAYE on 10/23/19 0957 Last Action: Discontinued Losartan Potassium (Losartan Potassium) 50 Mg Tablet, 50 MG PO DAILY, (Reported) Discontinued Reason: No Longer Taking Entered as Reported by: JENNIFER OSBORN on 12/23/18912 Last Action: Discontinued Exam Vital Signs Vital Signs Date Time Temp Pulse Resp B/P (MAP) Pulse Ox O2 Delivery O2 Flow Rate FiO2 11/24/21 12:36 80 11/24/21 08:05 97 Room Air 11/24/21 08:00 18 134/71 11/24/21 01:12 36.9 Physical Exam General: Alert. No acute distress. Well nourished and appears stated age. Eye: Extraocular movements are intact. Conjunctivae are clear. There are no xanthelasma. HENT: Normocephalic. Atraumatic. Carotid pulsations 2/2 without bruits. Neck: Jugular venous pressure does not appear elevated. No thyromegaly appreciated. Respiratory: Lungs are clear to auscultation but decreased at the bases bi laterally. Respirations are non-labored. Breath sounds are equal. Symmetrical chest wall expansion. Cardiovascular: Normal rate. Regular rhythm. 2/6 systolic ejection murmur. No gallop. Point of maximal impulse is not appear displaced. Good pulses equal in all extremities. No edema. Gastrointestinal: Soft. Normal bowel sounds. Skin: Skin turgor is normal. There is no pallor. Musculoskeletal: No kyphosis or scoliosis appreciated. Neurologic: Alert and oriented to person, place, time. Cranial nerves 3-12 mayda ear grossly intact. The patient has good motor tone strength in the upper and lower extremities bilaterally. Psychiatric: Cooperative. Appropriate mood & affect. Labs Laboratory Tests Test 11/24/21 01:48 11/24/21 02:59 11/24/21 03:55 Range/Units White Blood Count 12.9 H 4.3-11.0 10^3/uL Red Blood Count 4.04 L 4.30-5.52 10^6/uL Hemoglobin 12.2 L 13.3-17.7 g/dL Hematocrit 37 L 40-54 % Mean Corpuscular Volume 91 80-99 fL Mean Corpuscular Hemoglobin 30 25-34 pg Mean Corpuscular Hemoglobin Concent 33 32-36 g/dL Red Cell Distribution Width 14.0 10.0-14.5 % Platelet Count 157 130-400 10^3/uL Mean Platelet Volume 8.8 L 9.0-12.2 fL Immature Granulocyte % (Auto) 1 % Neutrophils (%) (Auto) 77 H 42-75 % Lymphocytes (%) (Auto) 7 L 12-44 % Monocytes (%) (Auto) 13 H 0-12 % Eosinophils (%) (Auto) 2 0-10 % Basophils (%) (Auto) 0 0-10 % Neutrophils # (Auto) 9.9 H 1.8-7.8 10^3/uL Lymphocytes # (Auto) 1.0 1.0-4.0 10^3/uL Monocytes # (Auto) 1.6 H 0.0-1.0 10^3/uL Eosinophils # (Auto) 0.3 0.0-0.3 10^3/uL Basophils # (Auto) 0.0 0.0-0.1 10^3/uL Immature Granulocyte # (Auto) 0.1 0.0-0.1 10^3/uL Neutrophils % (Manual) 77 % Lymphocytes % (Manual) 9 % Monocytes % (Manual) 13 % Eosinophils % (Manual) 1 % Blood Morphology Comment NORMAL Prothrombin Time 14.7 12.2-14.7 SEC INR Comment 1.1 0.8-1.4 Activated Partial Thromboplast Time 35 24-35 SEC D-Dimer 3.41 H 0.00-0.49 UG/ML Sodium Level 139 135-145 MMOL/L Potassium Level 4.0 3.6-5.0 MMOL/L Chloride Level 104 98-107 MMOL/L Carbon Dioxide Level 23 21-32 MMOL/L Anion Gap 12 5-14 MMOL/L Blood Urea Nitrogen 24 H 7-18 MG/DL Creatinine 1.27 0.60-1.30 MG/DL Estimat Glomerular Filtration Rate 56 BUN/Creatinine Ratio 19 Glucose Level 136 H 70-105 MG/DL Calcium Level 8.9 8.5-10.1 MG/DL Corrected Calcium 9.1 8.5-10.1 MG/DL Magnesium Level 1.7 1.6-2.4 MG/DL Total Bilirubin 1.1 H 0.1-1.0 MG/DL Aspartate Amino Transf (AST/SGOT) 14 5-34 U/L Alanine Aminotransferase (ALT/SGPT) 21 0-55 U/L Alkaline Phosphatase 67 40-136 U/L Troponin I 0.040 H < 0.028 <0.028 NG/ML Total Protein 6.4 6.4-8.2 GM/DL Albumin 3.7 3.2-4.5 GM/DL Procalcitonin 0.04 <0.10 NG/ML Lactic Acid Level 1.09 0.50-2.00 MMOL/L Urine Color YELLOW Urine Clarity CLEAR Urine pH 6.0 5-9 Urine Specific Page 1.025 H 1.016-1.022 Urine Protein NEGATIVE NEGATIVE Urine Glucose (UA) NEGATIVE NEGATIVE Urine Ketones NEGATIVE NEGATIVE Urine Nitrite NEGATIVE NEGATIVE Urine Bilirubin NEGATIVE NEGATIVE Urine Urobilinogen 2.0 < = 1.0 MG/DL Urine Leukocyte Esterase NEGATIVE NEGATIVE Urine RBC (Auto) NEGATIVE NEGATIVE Urine RBC 0-2 /HPF Urine WBC 0-2 /HPF Urine Squamous Epithelial Cells 0-2 /HPF Urine Crystals NONE /LPF Urine Bacteria NEGATIVE /HPF Urine Casts NONE /LPF Urine Mucus SMALL H /LPF Urine Culture Indicated NO ECG Impression ECG Comment Electrocardiogram from earlier this morning shows sinus rhythm with left anterior hemiblock, poor R wave progression and nonspecific ST-T wave changes. Diagnosis/Problems Diagnosis/Problems (1) Chest pain Status: Acute Assessment & Plan: I suspect this is due to the pulmonary embolism and possibly the underlying pneumonia. I do not see any indication for a coronary ischemic evaluation at this time. (2) Troponin level elevated Assessment & Plan: His first troponin level was marginally elevated and the second 1 was undetectable. He may have had a very minor type II non-ST elevation myocardial infarction due to supply/demand mismatch. (3) Coronary artery disease without angina pectoris Assessment & Plan: He is not having any chest pain that sounds cardiac at this point in time. Since he will need to be on oral anticoagulation for the pulmonary embolism, I would stop the aspirin and continue clopidogrel. I have taken the liberty of resuming his diltiazem and ezetimibe. In light of the pulmonary embolism, I will hold off on resuming his metoprolol until we see how he responds to the diltiazem. Furthermore, it appears as though he was taking metoprolol tartrate once daily at home but this is twice daily medication. He has an intolerance to statin medications. (4) Primary hypertension Assessment & Plan: As above, I will restart diltiazem and we will see how he responds to this before resuming metoprolol. (5) Mixed hyperlipidemia Assessment & Plan: I have ordered his ezetimibe. He has an intolerance to statin medications. (6) Sick sinus syndrome Assessment & Plan: He has a dual-chamber pacemaker in place. His electrocardiogram shows [place] sinus rhythm with [place] AV conduction. (7) Cardiac pacemaker in situ Assessment & Plan: He will continue to be monitored in our outpatient pacemaker monitoring clinic in the office. RONAK AKINS JR, MD Nov 24, 2021 16:49
[2021-11-24] MEDS: ACETAMINOPHEN 325 MG TABLET PO PRN (17:58)
[2021-11-24] MEDS: CYANOCOBALAMIN 1,000 MCG (VITAMIN B-12) TABLET PO SCH (22:17)
[2021-11-24] MEDS: OMEGA 3 (FISH OIL) 1000 MG CAP PO SCH (22:18)
[2021-11-24] MEDS: MIRTAZAPINE 15 MG (REMERON) TAB PO SCH (22:18)
[2021-11-24] MEDS: APIXABAN 5 MG (ELIQUIS) TABLET PO SCH (22:18)
[2021-11-24] MEDS: eZETimibe 10 MG (ZETIA) TABLET PO SCH (22:18)
[2021-11-24] MEDS: MULTIVIT W/MINERALS TAB (THERAGRAN M) PO SCH (22:19)
[2021-11-24] MEDS: VITAMIN D3 25 MCG (1,000 UNITS) TABLET PO SCH (22:19)
[2021-11-25] MEDS: RT-ALBUTEROL/IPRATROPIUM 3 ML (DUONEB) VIAL INH SCH ×5 (02:27→19:46)
[2021-11-25 05:43] LABS: HEMATOCRIT 33 % (40-54); HEMOGLOBIN 10.9 g/dL (13.3-17.7); MEAN CORPUSCULAR HEMOGLOBIN 30 pg (25-34); MEAN CORPUSCULAR HGB CONC 33 g/dL (32-36); MEAN CORPUSCULAR VOLUME 92 fL (80-99); MEAN PLATELET VOLUME 9.5 fL (9.0-12.2); PLATELET COUNT 143 10^3/uL (130-400); WHITE BLOOD COUNT 11.8 10^3/uL (4.3-11.0)
[2021-11-25 05:44] LABS: ALBUMIN 3.1 GM/DL (3.2-4.5); POTASSIUM 3.6 MMOL/L (3.6-5.0)
[2021-11-25 05:45] LABS: CALCIUM 8.4 MG/DL (8.5-10.1)
[2021-11-25 05:47] LABS: TOTAL PROTEIN 5.5 GM/DL (6.4-8.2)
[2021-11-25 05:48] LABS: BILIRUBIN,TOTAL 1.3 MG/DL (0.1-1.0)
[2021-11-25 05:50] LABS: CREATININE SERUM 1.21 MG/DL (0.60-1.30)
[2021-11-25 08:00] VITALS: BP 117/54
[2021-11-25] MEDS: cefTRIAXone 1 GM PRE-MIX 50 ML IV SCH (08:17)
[2021-11-25] MEDS: LOSARTAN 100 MG (COZAAR) TABLET PO SCH (08:18)
[2021-11-25] MEDS: AZITHROMYCIN 250 MG TAB (ZITHROMAX) PO SCH (08:18)
[2021-11-25] MEDS: CLOPIDOGREL 75 MG (PLAVIX) TABLET PO SCH (08:18)
[2021-11-25] MEDS: APIXABAN 5 MG (ELIQUIS) TABLET PO SCH ×2 (08:18→20:21)
--- NOTE | 2021-11-25 10:25 | Cardiology Progress Note ---
Progress Note-Cardiology Events since last exam Date Seen by Provider: Nov 25, 2021 Time Seen by Provider: 10:20 Events since last exam I am following him due to coronary artery disease now with deep venous throm bosis and pulmonary embolism. He still has some mild pleuritic chest pain but this seems to be getting better. Last evening when he was sleeping he had oxygen desaturation and was placed on oxygen by nasal cannula. Respiratory has been able to wean this from 4 down to 2 L/min. He does not wear oxygen at home. He denies shortness of breath at rest. He denies palpitations, syncope, or ankle edema. Certain portions of this document may have been dictated utilizing voice recognition technology. Inherent to this technology, typographical and grammatical errors may exist. As much as I am diligent to identify and correct these mistakes, some errors may remain in the document. Vitals Last set of Vitals Signs Vital Signs 11/25/21 11/25/21 08:00 08:37 Temp 37.0 Pulse 80 Resp 25 B/P (MAP) 117/54 (75) Pulse Ox 93 O2 Delivery Room Air Labs Labs Laboratory Tests 11/25/21 05:11 Exam Vital Signs Vital Signs Date Time Temp Pulse Resp B/P (MAP) Pulse Ox O2 Delivery O2 Flow Rate FiO2 11/25/21 08:37 93 Room Air 11/25/21 08:00 37.0 80 25 117/54 (75) 11/25/21 07:00 4.00 Physical Exam General: Alert. No acute distress. Eye: No xanthelasma. HENT: Normocephalic. Neck: Jugular venous pressure does not appear elevated. Respiratory: Lungs are clear to auscultation. Respirations are non-labored. Breath sounds are equal. Symmetrical chest wall expansion. Cardiovascular: Normal rate. Regular rhythm. 2/6 systolic ejection murmur. No gallop. No edema. Gastrointestinal: Soft. Normal bowel sounds. Skin: Warm. Dry. Neurologic: Alert and oriented to person, place, time. Cranial nerves 3-11 grossly intact. Psychiatric: Cooperative. Appropriate mood & affect. Labs Laboratory Tests Test 11/25/21 05:11 Range/Units White Blood Count 11.8 H 4.3-11.0 10^3/uL Red Blood Count 3.58 L 4.30-5.52 10^6/uL Hemoglobin 10.9 L 13.3-17.7 g/dL Hematocrit 33 L 40-54 % Mean Corpuscular Volume 92 80-99 fL Mean Corpuscular Hemoglobin 30 25-34 pg Mean Corpuscular Hemoglobin Concent 33 32-36 g/dL Red Cell Distribution Width 14.1 10.0-14.5 % Platelet Count 143 130-400 10^3/uL Mean Platelet Volume 9.5 9.0-12.2 fL Sodium Level 135 135-145 MMOL/L Potassium Level 3.6 3.6-5.0 MMOL/L Chloride Level 102 98-107 MMOL/L Carbon Dioxide Level 22 21-32 MMOL/L Anion Gap 11 5-14 MMOL/L Blood Urea Nitrogen 22 H 7-18 MG/DL Creatinine 1.21 0.60-1.30 MG/DL Estimat Glomerular Filtration Rate 59 BUN/Creatinine Ratio 18 Glucose Level 136 H 70-105 MG/DL Calcium Level 8.4 L 8.5-10.1 MG/DL Corrected Calcium 9.1 8.5-10.1 MG/DL Total Bilirubin 1.3 H 0.1-1.0 MG/DL Aspartate Amino Transf (AST/SGOT) 11 5-34 U/L Alanine Aminotransferase (ALT/SGPT) 14 0-55 U/L Alkaline Phosphatase 58 40-136 U/L Total Protein 5.5 L 6.4-8.2 GM/DL Albumin 3.1 L 3.2-4.5 GM/DL Diagnosis/Problems Diagnosis/Problems (1) Chest pain Status: Acute Assessment & Plan: His chest discomfort persists but seems to be improving. I suspect this is due to the pulmonary embolism and possibly the underlying pneumonia and/or pulmonary infarct. I do not see any indication for a coronary ischemic evaluation at this time. I encouraged him to continue with the incentive spirometer. (2) Troponin level elevated Assessment & Plan: His first troponin level was marginally elevated and the second 1 was undetectable. He may have had a very minor type II non-ST elevation myocardial infarction due to supply/demand mismatch. (3) Coronary artery disease without angina pectoris Assessment & Plan: He is not having any chest pain that sounds cardiac at this point in time. Since he will need to be on oral anticoagulation for the pul monary embolism, he should stop aspirin and continue clopidogrel. I have taken the liberty of resuming his diltiazem and ezetimibe. He has been continued on his diltiazem and losartan. I did not reorder metoprolol because his blood pressures have been somewhat on the low side. I told him not to resume metoprolol when he goes home. Furthermore, it appears as though he was taking metoprolol tartrate once daily at home but this is twice daily medication. He has an intolerance to statin medications. He has been taking ezetimibe. (4) Primary hypertension Assessment & Plan: As above, I continue diltiazem and losartan. Stop metoprolol. (5) Mixed hyperlipidemia Assessment & Plan: I have ordered his ezetimibe. He has an intolerance to statin medications. (6) Sick sinus syndrome Assessment & Plan: He has a dual-chamber pacemaker in place. His electrocardio gram shows [place] sinus rhythm with [place] AV conduction. (7) Cardiac pacemaker in situ Assessment & Plan: He will continue to be monitored in our outpatient pacemaker monitoring clinic in the office. (8) Pulmonary embolism Status: Acute Assessment & Plan: This appears to have been unprovoked. He is now on apixaban as ordered by the covering primary provider. Given his advanced age, I am not sure an extensive evaluation for secondary causes of deep venous thrombosis and pulmonary embolism is warranted. I will leave this up to the discretion of his regular primary provider. Problem Qualifiers (1) Pulmonary embolism: Pulmonary embolism type: multiple subsegmental (without acute cor pulmonale) Qualified Codes: I26.94 - Multiple subsegmental pulmonary emboli without acute cor pulmonale RONAK AKINS JR, MD Nov 25, 2021 10:25
--- NOTE | 2021-11-25 11:14 | Progress Note ---
Subjective Date Seen by a Provider: Nov 25, 2021 Time Seen by a Provider: 11:09 Subjective/Events-last exam Fwup Left sided pneumonia and pulmonary emboli, HTN, History of CAD, History of CVA. Venous doppler of LEs did show left sided DVT in popliteal fossa extending into left calf. Still with some pain in left chest and still feels hard to take a deep breath. Focused Exam Lactate Level 11/24/21 02:59: Lactic Acid Level 1.09 Objective Exam Vital Signs Date Time Temp Pulse Resp B/P (MAP) Pulse Ox O2 Delivery O2 Flow Rate FiO2 11/25/21 10:45 93 Room Air 0.00 11/25/21 08:37 93 Room Air 11/25/21 08:00 37.0 80 25 117/54 (75) 95 Room Air 11/25/21 07:00 96 Nasal Cannula 4.00 11/25/21 07:00 61 11/25/21 04:00 36.0 11/25/21 02:27 97 Nasal Cannula 4.00 11/25/21 01:00 80 11/25/21 00:00 36.3 11/24/21 22:51 94 Nasal Cannula 4.00 11/24/21 21:00 97 Room Air 11/24/21 20:00 36.3 11/24/21 19:12 94 Room Air 11/24/21 19:00 80 11/24/21 17:27 93 Room Air 11/24/21 16:00 36.7 78 18 120/68 (85) 97 Room Air 11/24/21 12:36 80 11/24/21 12:00 36.9 66 18 166/86 (112) 96 Room Air I & O 11/25/21 07:00 Intake Total 700 ml Output Total 500 ml Balance 200 ml Capillary Refill : Less Than 3 Seconds General Appearance: No Apparent Distress Neck: Supple Respiratory: Crackles, Decreased Breath Sounds Cardiovascular: Regular Rate, Rhythm, Gallop/S4 Extremity: Non Tender, No Calf Tenderness, No Pedal Edema Neurologic/Psychiatric: Alert, Oriented x3 Results Lab Laboratory Tests 11/25/21 05:11: White Blood Count 11.8H, Red Blood Count 3.58L, Hemoglobin 10.9L, Hematocrit 33L , Mean Corpuscular Volume 92, Mean Corpuscular Hemoglobin 30, Mean Corpuscular Hemoglobin Concent 33, Red Cell Distribution Width 14.1, Platelet Count 143, Mean Platelet Volume 9.5, Sodium Level 135, Potassium Level 3.6, Chloride Level 102, Carbon Dioxide Level 22, Anion Gap 11, Blood Urea Nitrogen 22H, Creatinine 1.21, Estimat Glomerular Filtration Rate 59, BUN/Creatinine Ratio 18, Glucose Level 136H, Calcium Level 8.4L, Corrected Calcium 9.1, Total Bilirubin 1.3H, Aspartate Amino Transf (AST/SGOT) 11, Alanine Aminotransferase (ALT/SGPT) 14, Alkaline Phosphatase 58, Total Protein 5.5L, Albumin 3.1L Microbiology 11/24/21 Blood Culture - Preliminary, Resulted No growth Assessment/Plan Assessment/Plan Assess & Plan/Chief Complaint 1. Left sided pneumonia--continue rocephin and zithromax 2. Left Popliteal/Calf DVT--on eliquis 3. Left Pulmonary Emboli x2--on eliquis 4. History of CAD--stable 5. History of CVA--stable 6. Hypertension--stable Clinical Quality Measures Admission Status Admission Dx 1. Left Sided Pulmonary Embolism--admitted and loading with eliquis 10mg po BID for 1 week then will switch to eliquis 5mg po BID, will check venous doppler of LEs 2. Left Sided Pneumonia--cover with rocephin and zithromax, start IS, start SVNS with duoneb 3. History of CAD--patient is still on eliquis/aspirin, will consult cardiology to see if plavix/aspirin still needed 4. History of CVA--fully recovered, has been maintained on aspirin/plavix and BP control, statin intolerant 5. Hypertension--BP currently stable, will resume home meds once meds reconciled AMI/AHF: ASA po Prior to arrival: Yes AURA OMER DO Nov 25, 2021 11:14
[2021-11-25 11:49] VITALS: BP 93/59
[2021-11-25 16:50] VITALS: BP 140/58
[2021-11-25] MEDS: CYANOCOBALAMIN 1,000 MCG (VITAMIN B-12) TABLET PO SCH (20:21)
[2021-11-25] MEDS: eZETimibe 10 MG (ZETIA) TABLET PO SCH (20:21)
[2021-11-25] MEDS: VITAMIN D3 25 MCG (1,000 UNITS) TABLET PO SCH (20:21)
[2021-11-25] MEDS: MIRTAZAPINE 15 MG (REMERON) TAB PO SCH (20:21)
[2021-11-25] MEDS: OMEGA 3 (FISH OIL) 1000 MG CAP PO SCH (20:21)
[2021-11-25] MEDS: MULTIVIT W/MINERALS TAB (THERAGRAN M) PO SCH (20:21)
[2021-11-26] MEDS: RT-ALBUTEROL/IPRATROPIUM 3 ML (DUONEB) VIAL INH SCH ×3 (02:28→21:03)
[2021-11-26 05:13] LABS: HEMATOCRIT 33 % (40-54); HEMOGLOBIN 10.7 g/dL (13.3-17.7); MEAN CORPUSCULAR HEMOGLOBIN 30 pg (25-34); MEAN CORPUSCULAR HGB CONC 32 g/dL (32-36); MEAN CORPUSCULAR VOLUME 92 fL (80-99); MEAN PLATELET VOLUME 9.5 fL (9.0-12.2); PLATELET COUNT 142 10^3/uL (130-400); WHITE BLOOD COUNT 11.6 10^3/uL (4.3-11.0)
[2021-11-26 07:46] VITALS: BP 114/56
[2021-11-26] MEDS: CLOPIDOGREL 75 MG (PLAVIX) TABLET PO SCH (08:03)
[2021-11-26] MEDS: LOSARTAN 100 MG (COZAAR) TABLET PO SCH (08:03)
[2021-11-26] MEDS: APIXABAN 5 MG (ELIQUIS) TABLET PO SCH ×2 (08:03→20:48)
[2021-11-26] MEDS: AZITHROMYCIN 250 MG TAB (ZITHROMAX) PO SCH (08:03)
[2021-11-26] MEDS: cefTRIAXone 1 GM PRE-MIX 50 ML IV SCH (08:03)
--- NOTE | 2021-11-26 09:36 | Progress Note ---
Subjective Date Seen by a Provider: Nov 26, 2021 Time Seen by a Provider: 09:34 Subjective/Events-last exam Fwup Left sided pneumonia and pulmonary emboli, LLE DVT, HTN, History of CAD, Type II ND, History of CVA. Feeling better. Focused on IS and up ambulating yesterday and feels like able to get deeper breaths. Focused Exam Lactate Level 11/24/21 02:59: Lactic Acid Level 1.09 Objective Exam Vital Signs Date Time Temp Pulse Resp B/P (MAP) Pulse Ox O2 Delivery O2 Flow Rate FiO2 11/26/21 08:10 93 Room Air 11/26/21 07:46 36.6 67 10 114/56 (75) 92 Room Air 11/26/21 07:00 66 11/26/21 04:00 37.4 11/26/21 02:28 97 Room Air 11/26/21 01:00 73 11/26/21 00:00 37.4 11/25/21 21:00 93 Room Air 11/25/21 20:00 37.4 11/25/21 19:47 97 Room Air 11/25/21 19:00 91 11/25/21 16:50 37.0 84 18 140/58 (85) 84 Room Air 11/25/21 15:22 97 Room Air 11/25/21 13:00 73 11/25/21 11:49 37.2 84 17 93/59 (70) 97 Room Air 11/25/21 10:45 93 Room Air 0.00 I & O 11/26/21 07:00 Intake Total 500 ml Balance 500 ml Capillary Refill : Less Than 3 Seconds General Appearance: No Apparent Distress Neck: Supple Respiratory: Crackles (left base), Decreased Breath Sounds Cardiovascular: Regular Rate, Rhythm, Gallop/S4 Gastrointestinal: normal bowel sounds, non tender, soft Extremity: Non Tender, No Calf Tenderness, No Pedal Edema Skin: Warm/Dry Results Lab Laboratory Tests 11/26/21 05:05: White Blood Count 11.6H, Red Blood Count 3.61L, Hemoglobin 10.7L, Hematocrit 33L , Mean Corpuscular Volume 92, Mean Corpuscular Hemoglobin 30, Mean Corpuscular Hemoglobin Concent 32, Red Cell Distribution Width 13.9, Platelet Count 142, Mean Platelet Volume 9.5 Microbiology 6/17/22 Blood Culture - Preliminary, Resulted Corynebacterium species Assessment/Plan Assessment/Plan Assess & Plan/Chief Complaint 1. Left sided pneumonia--continue rocephin and zithromax, CXR in AM 2. Left Popliteal/Calf DVT--on eliquis 3. Left Pulmonary Emboli x2--on eliquis 4. History of CAD/Type II ND--stable, on plavix 5. History of CVA--stable 6. Hypertension--stable Clinical Quality Measures Admission Status Admission Dx 1. Left Sided Pulmonary Embolism--admitted and loading with eliquis 10mg po BID for 1 week then will switch to eliquis 5mg po BID, will check venous doppler of LEs 2. Left Sided Pneumonia--cover with rocephin and zithromax, start IS, start SVNS with duoneb 3. History of CAD--patient is still on eliquis/aspirin, will consult cardiology to see if plavix/aspirin still needed 4. History of CVA--fully recovered, has been maintained on aspirin/plavix and BP control, statin intolerant 5. Hypertension--BP currently stable, will resume home meds once meds reconciled AMI/AHF: ASA po Prior to arrival: Yes AURA OMER DO Nov 26, 2021 09:36
[2021-11-26] MEDS ORDERED: FAMOTIDINE 20 MG (PEPCID) TABLET PO NR (09:45)
--- NOTE | 2021-11-26 09:56 | Cardiology Progress Note ---
Progress Note-Cardiology Events since last exam Date Seen by Provider: Nov 26, 2021 Time Seen by Provider: 09:52 Events since last exam We are following him due to his cardiac issues now with deep venous thrombosis and pulmonary embolism. His chest discomfort has nearly resolved. Now he only gets chest discomfort when he coughs. He still has a slight cough but is not bringing up any significant sputum at this point in time. His breathing has improved. He denies palpitations, syncope, or ankle edema. Certain portions of this document may have been dictated utilizing voice recognition technology. Inherent to this technology, typographical and grammatical errors may exist. As much as I am diligent to identify and correct these mistakes, some errors may remain in the document. Vitals Last set of Vitals Signs Vital Signs 11/25/21 11/26/21 11/26/21 10:45 07:46 08:10 Temp 36.6 Pulse 67 Resp 10 B/P (MAP) 114/56 (75) Pulse Ox 93 O2 Delivery Room Air O2 Flow Rate 0.00 Labs Labs Laboratory Tests 11/26/21 05:05 Exam Vital Signs Vital Signs Date Time Temp Pulse Resp B/P (MAP) Pulse Ox O2 Delivery O2 Flow Rate FiO2 11/26/21 08:10 93 Room Air 11/26/21 07:46 36.6 67 10 114/56 (75) 11/25/21 10:45 0.00 Physical Exam General: Alert. No acute distress. Eye: No xanthelasma. HENT: Normocephalic. Neck: Jugular venous pressure does not appear elevated. Respiratory: Lungs are clear to auscultation. Respirations are non-labored. Breath sounds are equal. Symmetrical chest wall expansion. Cardiovascular: Normal rate. Regular rhythm. 2/6 systolic ejection murmur. No gallop. No edema. Gastrointestinal: Soft. Normal bowel sounds. Skin: Warm. Dry. Neurologic: Alert and oriented to person, place, time. Cranial nerves 3-11 grossly intact. Psychiatric: Cooperative. Appropriate mood & affect. Labs Laboratory Tests Test 11/26/21 05:05 Range/Units White Blood Count 11.6 H 4.3-11.0 10^3/uL Red Blood Count 3.61 L 4.30-5.52 10^6/uL Hemoglobin 10.7 L 13.3-17.7 g/dL Hematocrit 33 L 40-54 % Mean Corpuscular Volume 92 80-99 fL Mean Corpuscular Hemoglobin 30 25-34 pg Mean Corpuscular Hemoglobin Concent 32 32-36 g/dL Red Cell Distribution Width 13.9 10.0-14.5 % Platelet Count 142 130-400 10^3/uL Mean Platelet Volume 9.5 9.0-12.2 fL Diagnosis/Problems Diagnosis/Problems (1) Chest pain Status: Acute Assessment & Plan: His chest discomfort has nearly resolved. I suspect this is due to the pulmonary embolism and possibly the underlying pneumonia and/or pulmonary infarct. I do not see any indication for a coronary ischemic evaluation at this time. I encouraged him to continue with the incentive spirometer. (2) Troponin level elevated Assessment & Plan: His first troponin level was marginally elevated and the second one was undetectable. He may have had a very minor type II non-ST elevation myocardial infarction due to supply/demand mismatch. (3) Coronary artery disease without angina pectoris Assessment & Plan: He is not having any chest pain that sounds cardiac at this point in time. Since he will need to be on oral anticoagulation for the pulmonary embolism, I stopped aspirin and continued clopidogrel. He should cont inue on diltiazem and ezetimibe. I did not reorder metoprolol because his blood pressures have been somewhat on the low side. I told him not to resume metoprolol when he goes home. Furthermore, it appears as though he was taking metoprolol tartrate once daily at home but this is twice daily medication. He has an intolerance to statin medications. (4) Primary hypertension Assessment & Plan: Blood pressures are well controlled with losartan and dil tiazem which she was taking at home. I did not resume metoprolol. He may not need to restart this at the time of discharge. (5) Mixed hyperlipidemia Assessment & Plan: Continue ezetimibe. He has an intolerance to statin medications. (6) Sick sinus syndrome Assessment & Plan: He has a dual-chamber pacemaker in place. His electrocardiogram shows [place] sinus rhythm with [place] AV conduction. (7) Cardiac pacemaker in situ Assessment & Plan: He will continue to be monitored in our outpatient pacemaker monitoring clinic in the office. (8) Pulmonary embolism Status: Acute Assessment & Plan: This appears to have been unprovoked. He is now on apixaban as ordered by the covering primary provider. Given his advanced age, I am not sure an extensive evaluation for secondary causes of deep venous thrombosis and pulmonary embolism is warranted. I will leave this up to the discretion of his regular primary provider. Problem Qualifiers (1) Pulmonary embolism: Pulmonary embolism type: multiple subsegmental (without acute cor pulmonale) Qualified Codes: I26.94 - Multiple subsegmental pulmonary emboli without acute cor pulmonale RONAK AKINS JR, MD Nov 26, 2021 09:56
[2021-11-26 11:54] VITALS: BP 113/65
[2021-11-26 16:16] VITALS: BP 135/64
[2021-11-26 19:51] VITALS: BP 121/63
[2021-11-26] MEDS: MIRTAZAPINE 15 MG (REMERON) TAB PO SCH (20:48)
[2021-11-26] MEDS: eZETimibe 10 MG (ZETIA) TABLET PO SCH (20:48)
[2021-11-26] MEDS: FAMOTIDINE 20 MG (PEPCID) TABLET PO SCH (20:49)
[2021-11-26] MEDS: MULTIVIT W/MINERALS TAB (THERAGRAN M) PO SCH (20:49)
[2021-11-26] MEDS: VITAMIN D3 25 MCG (1,000 UNITS) TABLET PO SCH (20:49)
[2021-11-26] MEDS: CYANOCOBALAMIN 1,000 MCG (VITAMIN B-12) TABLET PO SCH (20:49)
[2021-11-26] MEDS: ACETAMINOPHEN 325 MG TABLET PO PRN (23:50)
[2021-11-27] VITALS: BP 126/71
[2021-11-27 03:44] VITALS: BP 118/69
[2021-11-27 06:03] LABS: HEMATOCRIT 33 % (40-54); HEMOGLOBIN 11.1 g/dL (13.3-17.7); MEAN CORPUSCULAR HEMOGLOBIN 30 pg (25-34); MEAN CORPUSCULAR HGB CONC 33 g/dL (32-36); MEAN CORPUSCULAR VOLUME 90 fL (80-99); MEAN PLATELET VOLUME 9.7 fL (9.0-12.2); PLATELET COUNT 192 10^3/uL (130-400); WHITE BLOOD COUNT 10.9 10^3/uL (4.3-11.0)
[2021-11-27] MEDS: RT-ALBUTEROL/IPRATROPIUM 3 ML (DUONEB) VIAL INH SCH (07:40)
--- NOTE | 2021-11-27 08:29 | Diagnostic Imaging Report ---
EXAMINATION: Chest 2 view HISTORY: Pneumonia follow-up. COMPARISON: 11/25/2019 FINDINGS: Heart size and pulmonary vasculature are normal. Surgical changes from CABG and left-sided cardiac device placement. There are persistent left basilar opacities. No pleural effusion or pneumothorax. Degenerative changes of the thoracic spine. Osseous structures are otherwise intact. IMPRESSION: 1. Persistent left basilar opacities which could be seen with atelectasis or pneumonia. Dictated by: Dictated on workstation # [id number]
[2021-11-27] MEDS ORDERED: AZIT250T PO (08:33)
--- NOTE | 2021-11-27 08:33 | Cardiology Progress Note ---
Subjective Date Seen by Provider: Nov 27, 2021 Time Seen by Provider: 08:33 Subjective/Events-last exam Patient is sitting up in bed, denies any chest pain or dyspnea. Objective-Cardiology Exam Last Set of Vital Signs Vital Signs 11/25/21 11/27/21 11/27/21 10:45 08:43 09:03 Temp 36.8 Pulse 82 Resp 18 B/P (MAP) 130/66 (87) Pulse Ox 95 O2 Delivery Room Air O2 Flow Rate 0.00 I&O Intake and Output 11/27/21 00:00 Intake Total 390 ml Balance 390 ml Intake Oral 390 ml # Voids 7 # Bowel Movements 1 General: Alert, Oriented X3, Cooperative HEENT: Atraumatic Lungs: Clear to Auscultation, Normal Air Movement Heart: Regular Rate, Normal S1, Normal S2 Abdomen: Normal Bowel Sounds, Soft Extremities: No Clubbing, No Cyanosis, No Edema Skin: No Rashes, No Significant Lesion Neuro: Normal Speech, Cranial Nerves 3-12 NL Psych/Mental Status: Mental Status NL, Mood NL Results Lab Laboratory Tests 11/27/21 05:40 A/P-Cardiology Admission Diagnosis DVT/PE Chest pain CAD HTN Assessment/Plan Chest pain, nonspecific etiology, resolved. Mildly elevated initial troponin. He may have had a very minor type II non-ST elevation myocardial infarction due to supply/demand mismatch. Continue to monitor. 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 Improved after receiving TPA. Pacemaker interrogation revealed no arrhythmia. He is maintained on Plavix and aspirin. Continue to monitor. LLE DVT/PE, unprovoked. Currently on Eliquis 10mg BID. Patient reports having increased fatigue and nonproductive cough approx 2 weeks ago, questionable COVID illness. Will continue on Eliquis and continue to monitor. Coronary artery disease, history of CABG x4 done in 1997 using LIM to LAD, vein graft to LAD, vein graft to the first and second Obtuse marginal and vein graft to the right coronary artery. Patient underwent cardiac catheterization on November 10, [address] 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 There is 80 percent lesion in the mid RCA just distal to the second blanca hook 80 percent lesion just distal to that at the takeoff of the PDA. Patient underwent 2 stent placements using 3.0 x 16 Promus Premier stent in the distal vessel, 3.0 x 20 Promus Premier stent in the mid RCA. Both were 0 percent post with GERA grade 3 following the procedure. Most recent cardiac catheterization done November 14, 2018 revealed severe stenosis in the mid vein graft to the circumflex and diagonal branch successful primary stenting using [place] 4.0 x 23 mm expanded to 4.5 mm proximally and 4.25 mm distally with excellent results. Patent LIM to LAD. Known to have severe disease in the left circumflex and LAD system that was corrected with a bypass grafts. Dominant right coronary system with patent stents, tortuous artery was small vessel disease. Cardiac catheterization done March 29, 2021 showing Patent LIM to LAD, patent jump graft to the diagonal artery and OM with small vessel disease. Large domin ant RCA, toruous with Blanca hook curve in the prox and distal portion, both stents are patent, prox to the first stent there is an area of 50% stenosis that did not change. Known occluded VG prob to diag branch. Maintained on ASA and Plavix. Echocardiogram done in October 2019 showing normal left ventricular size, EF 45-50 percent, grade 1 diastolic dysfunction, left atrium 4.4 cm, PA pressure 30 mmHg. Continue to monitor Dyspnea on exertion, chronic, overall functioning well. Has been doing well. No changes are recommended Hypertension,controlled, continue to monitor. Hyperlipidemia, controlled, lipid profile done August 2021 showing total cholesterol 144, HDL 47, LDL 69, trig 138. Continue to monitor as outpatient. Sick sinus syndrome, history of permanent pacemaker. status post generator replacement on February 15, 2016, [employer] Adapta serial # [id number]. last interrogation was done in 10/23/21 showing good sensing and capture activity, noted to have some atrial high rate. Cardizem recently was increased to 240mg daily. Mild bilateral carotid stenosis, nonobstructive disease, last carotid ultrasound done in March 2021, continue to monitor History of intolerance to Plavix in the past secondary to bleed requiring cauterization of bladder, currently tolerating Plavix at this time. History of dizziness, post syncopal episode, probably hypotensive, no further episodes were reported. Continue to monitor Benign prostatic hypertrophy, history of TURP. Followed by Dr. Walker Depression-started on antidepressant after the of his spouse. Managed by primary care physician. Supervisory-Addendum Brief Supervisory Addendum Participated in pt care: history, MDM, physical Personally performed: exam, history, MDM Care discussed with: BOB Results interpretation: Verified all documentation Notes: Patient was seen and evaluated with Alena, examination performed, management plan was discussed, agree with the current scribed note, I made few changes to the note using Italic font Patient was seen at bedside, sitting comfortably, ready to go home I discussed with him the management plan in details, recommended using oral anticoagulation in addition to aspirin I instructed him to stop Plavix Continue to monitor blood pressure and heart rate Arrange for follow-up as an outpatient ALENA ALBERT Nov 27, 2021 08:33 NACHO FERRER MD Nov 27, 2021 12:14
[2021-11-27] MEDS ORDERED: CEFD300C3 PO (08:34)
[2021-11-27] MEDS ORDERED: APIX5TAB PO (08:35)
[2021-11-27 08:43] VITALS: BP 130/66
[2021-11-27] MEDS: FAMOTIDINE 20 MG (PEPCID) TABLET PO SCH (08:59)
[2021-11-27] MEDS: LOSARTAN 100 MG (COZAAR) TABLET PO SCH (08:59)
[2021-11-27] MEDS: APIXABAN 5 MG (ELIQUIS) TABLET PO SCH (08:59)
[2021-11-27] MEDS: cefTRIAXone 1 GM PRE-MIX 50 ML IV SCH (08:59)
[2021-11-27] MEDS: AZITHROMYCIN 250 MG TAB (ZITHROMAX) PO SCH (08:59)
[2021-11-27] MEDS ORDERED: FAMO20TA5 PO (12:05)
--- NOTE | 2021-11-27 18:28 | Discharge Summary ---
Diagnosis/Chief Complaint Date of Admission Nov 24, 2021 at 07:15 Date of Discharge Nov 27, 2021 at 13:00 Discharge Date: Nov 27, 2021 Discharge Diagnosis 1. Left sided pneumonia with Sepsis--improved, blood cultures growing out Cornybacterium and Staphylococcus hominis 2. Left Popliteal/Calf DVT--on eliquis 3. Left Pulmonary Emboli x2--on eliquis 4. History of CAD with Type II IN--stable 5. History of CVA--stable, statin-intolerant 6. Hypertension--stable 7. Sick Sinus Syndrome with Pacemaker in place Reason Hospital Visit This is an 86 year old male with a history of CAD, previous CVA and pacemaker who presented to the emergency room with left sided chest pain and difficulty taking a deep breath. He stated that this started about 2 days ago. Last night the pain was worth when he lied down and he could not get comfortable so he presented to the emergency room for evaluation. He was found to have 2 small left sided PEs as well as a left sided infiltrate. He will be admitted for IV antibiotics and started on eliquis with cardiology consult. Discharge Summary Hospital Course Was the Problem List Reviewed?: Yes Hospital Course This is an 86 year old male with a history of CAD, previous CVA and pacemaker who presented to the emergency room with left sided chest pain and difficulty taking a deep breath. He stated that this started about 2 days ago. Last night the pain was worse when he lied down and he could not get comfortable so he pr esented to the emergency room for evaluation. He was found to have 2 small left sided PEs as well as a left sided infiltrate. He will be admitted for IV antibiotics and started on eliquis with cardiology consult. He was admitted to cardiac stepdown and started on eliquis at 10mg po BID. His pneumonia was treated with IV rocephin and zithromax. A venous doppler of his lower ext remities was done and did show a left sided deep venous thrombosis in his left popliteal fossa extending into his left calf. The patient denied any trauma to his leg or edema or pain. He denied any travel or sleeping in a chair. His daughter did report that she had been down to see him about 3 weeks ago and that he was not doing well that weekend--he was very fatigued and just not himself. His son and DIL also had COVID about that time. This did raise the possibility that the patient may have had COVID when he was not feeling well and this is a subsequent pneumonia and DVT and PE from his recent illness. He was started on incentive spirometry as well as nebulizer treatments with duoneb. He continued to complain of pain in his left chest as well as difficulty getting a deep breath for the first 2 days of his hospital stay. He required oxygen overnight his first 2 nights of admission but by the time of discharge was no longer requiring oxygen. His preliminary blood cultures showed Corynobacterium and S taphylococcus hominis. His WBC count was back to normal by the day of discharge and he was afebrile. His left sided chest pain was improved and he felt like he could get a deeper breath. He felt like home health was not necessary as he was up ambulating on his own. He will be sent home on eliquis with aspirin and his plavix and metoprolol will be stopped. He will finish out zithromax and omnicef for his pneumonia and will continue IS at home. He will follow up with Dr. Dumont in [address] Hampton in 2 weeks. Labs Laboratory Tests 11/25/21 05:11: White Blood Count 11.8H, Red Blood Count 3.58L, Hemoglobin 10.9L, Hematocrit 33L , Blood Urea Nitrogen 22H, Glucose Level 136H, Calcium Level 8.4L, Total Bilirubin 1.3H, Total Protein 5.5L, Albumin 3.1L 11/26/21 05:05: White Blood Count 11.6H, Red Blood Count 3.61L, Hemoglobin 10.7L, Hematocrit 33L 11/27/21 05:40: Red Blood Count 3.69L, Hemoglobin 11.1L, Hematocrit 33L Procedures None. Discharge Physical Examination Allergies: Coded Allergies: nitroglycerin (Unverified Allergy, Severe, SYNCOPE, 10/23/19) Dscotnj-JVM-VfB Reductase Inhibitor (Verified Adverse Reaction, Mild, JOIN T PAIN, 10/23/19) Vitals & I&Os Vital Signs Date Time Temp Pulse Resp B/P (MAP) Pulse Ox O2 Delivery O2 Flow Rate FiO2 11/27/21 09:03 Room Air 11/27/21 08:43 36.8 82 18 130/66 (87) 95 11/25/21 10:45 0.00 General Appearance: Alert, Oriented X3, No Acute Distress Respiratory: Other (bibasilar crackles) Cardiovascular: Regular Rate Abdominal: Normal Bowel Sounds, Soft, No Tenderness Extremities: No Edema Psych/Mental Status: Mental Status NL Discharge Home Medications Reviewed and agree with Discharge Medication list on patient's Discharge Instruction sheet Instructions to Patient/Family Please see electronic discharge instructions given to patient. Clinical Quality Measures AMI/AHF: ASA po Prior to arrival: Yes AURA OMER DO Nov 27, 2021 18:28
--- NOTE | 2021-11-29 05:41 | Physician Query Clarification ---
PQ-Present on Admission Admission/Discharge Admission Date: Nov 24, 2021 at 07:15 Discharge Date: Nov 27, 2021 at 13:00 AURA Mckoy DO History& risk factors: 86 y/o male patient presented with chest pain found to have small left sided pulmonary embolism as well as left sided pneumonia, sepsis was documented in discharge summary with pneumonia. Clinical indicators: WBC-12.9 H, Blood cultures- staphylococcus hominis, corynebacterium species. Treatment: IV antibiotics, eliquis. Question: Sepsis was documented in Discharge summary, 11/27. Can you specify if this condition was present on admission? Please document a response in Progress Note or Discharge Summary. 1. Yes - Condition was present at the time of inpatient admission. 2. No - Condition was not present at the time of inpatient admission and it developed during the inpatient stay. 3. W - Provider is unable to clinically determine whether condition was present on admission or not. 4. Other [please specify] PHYSICIAN RESPONSE Condition was Present on Admit: Yes In responding to this query, please exercise your independent professional judgment. The purpose of this communication is to more accurately reflect the complexity of your patients condition. The fact that a question is asked does not imply that any particular answer is desired or expected. Thank you for your timely response to this clarification. Requestors name: [ ] Phone # [ ] THIS PHYSICIAN QUERY FORM IS A PERMANENT PART OF THE MEDICAL RECORD CHANTEL YU Nov 29, 2021 05:41 AURA OMER DO Dec 01, 2021 09:56
== END 2021-11-27 13:00 | disposition home or self-care (01) | DRG 871 ==
LOC: EDUNIT# 01:04 → ER 01:06 → CSD 07:15 → 4TH 11-26 14:31
PROVIDERS: ADMIT Family Medicine; ATTEND Family Medicine
DX: A41.9 Sepsis, unspecified organism (principal); J18.9 Pneumonia, unspecified organism; I26.99 Other pulmonary embolism without acute cor pulmonale; I21.A1 Myocardial infarction type 2; I82.4Z2 Acute embolism and thrombosis of unspecified deep veins of left distal lower extremity; I82.432 Acute embolism and thrombosis of left popliteal vein; B95.7 Other staphylococcus as the cause of diseases classified elsewhere; Z79.01 Long term (current) use of anticoagulants; I25.10 Atherosclerotic heart disease of native coronary artery without angina pectoris; Z86.73 Personal history of transient ischemic attack (TIA), and cerebral infarction without residual deficits; I10 Essential (primary) hypertension; I49.5 Sick sinus syndrome; Z95.0 Presence of cardiac pacemaker; Z79.82 Long term (current) use of aspirin; Z79.899 Other long term (current) drug therapy; Z87.891 Personal history of nicotine dependence; Z95.1 Presence of aortocoronary bypass graft; Z95.5 Presence of coronary angioplasty implant and graft; I25.2 Old myocardial infarction; E78.00 Pure hypercholesterolemia, unspecified; N40.0 Benign prostatic hyperplasia without lower urinary tract symptoms; M19.90 Unspecified osteoarthritis, unspecified site; Z85.46 Personal history of malignant neoplasm of prostate; Z85.828 Personal history of other malignant neoplasm of skin; Z92.3 Personal history of irradiation; I65.23 Occlusion and stenosis of bilateral carotid arteries; R06.00 Dyspnea, unspecified; R07.9 Chest pain, unspecified
CPT/HCPCS: 36415; 71045; 71046; 71275; 74176; 80053; 81000; 83605; 83735; 84145; 84484; 85007; 85027; 85379; 85610; 85730; 87040; 93005; 93041; 93970; 94640; 94760; 96365; 96367; 96375

== ENCOUNTER → 2021-12-14 | Outpatient (CLI) | payer MEDICARE ==
[~2021-12-14] MED LIST changes: +APIX5TAB PO; +AZIT250T PO; +CEFD300C3 PO; +DILT240C91 PO; +FAMO20TA5 PO; +LOSA100T57 PO; +NF-CRES10T PO; -ROSU10TA22 PO
--- NOTE | 2021-12-14 09:36 | Diagnostic Imaging Report ---
EXAMINATION: CT chest without contrast. TECHNIQUE: Multiple contiguous axial images were obtained through the chest without the use of intravenous contrast. All CT scans use one or more of the following dose optimizing techniques: automated exposure control, MA and/or KvP adjustment based on patient size and exam type or iterative reconstruction. HISTORY: Pneumonia COMPARISON: 11/24/2021 FINDINGS: There is a calcified granuloma in the left lower lobe. There is a new area of consolidation in the lateral basilar segment of the left lower lobe measuring 3.7 x 2.5 cm. Previously seen areas of consolidation have resolved. Calcified granulomas present in the right lower lobe. No pleural effusion. No pneumothorax. There is no axillary or supraclavicular lymphadenopathy. There is no mediastinal lymphadenopathy. Pacemaker is present. There has been coronary artery bypass grafting. Heart size is normal. There are severe coronary artery calcifications. No pericardial effusion. Aorta is normal in caliber. Limited views of the upper abdomen show changes of cholecystectomy. Simple cysts are present in the right kidney. There are no suspicious osseus lesions. IMPRESSION: 1. Previously seen areas of consolidation resolved. However there is a new area of consolidation in the lateral basilar segment left lower lobe in the distribution of the previously seen pulmonary embolus which may represent a subacute infarct. Three month followup recommended. Dictated by: Dictated on workstation # [id number]
== END ==
LOC: RAD 09:15
PROVIDERS: ATTEND Nurse Practitioner Family
DX: J18.9 Pneumonia, unspecified organism (principal)
CPT/HCPCS: 71250

== ENCOUNTER → 2022-04-04 | Outpatient (CLI) | payer MEDICARE ==
--- NOTE | 2022-04-04 17:15 | Diagnostic Imaging Report ---
CT CHEST WO TECHNIQUE: Multiple contiguous axial images were obtained through the chest without the use of intravenous contrast. All CT scans use one or more of the following dose optimizing techniques: automated exposure control, MA and/or KvP adjustment based on a patient size and exam type, or iterative reconstruction. INDICATION: Pulmonary embolus and pulmonary infarct. COMPARISON: 12/14/2021 FINDINGS: Lungs and airway: No abnormality in the trachea. Scattered calcified bilateral pulmonary nodules are stable and indicative of old granulomatous infection. No suspicious pulmonary nodules have developed. The left lower lobe subpleural rounded consolidation has near completely resolved indicating this was indeed due to a site of pulmonary infarct. A small amount of nodular atelectasis/scar remains in its place. Pleura: No pleural effusion or pneumothorax. Heart and mediastinum: No supraclavicular or axillary lymphadenopathy. No mediastinal or hilar lymphadenopathy. Heart is normal in size without pericardial effusion. Stable left pectoral transvenous pacemaker. CABG. Upper abdomen: No acute abnormality of the upper abdomen. Musculoskeletal: No worrisome focal osseous lesions in the chest. IMPRESSION: 1. The left lower lobe pulmonary infarct has resolved with a small nodular focus of scar displaced. 2. There are no suspicious nodules that require followup imaging. Dictated by: Dictated on workstation # [id number]
== END ==
LOC: RAD 11:01
PROVIDERS: ATTEND Nurse Practitioner Family
DX: I26.99 Other pulmonary embolism without acute cor pulmonale (principal)
CPT/HCPCS: 71250

== ENCOUNTER → 2022-07-02 | Outpatient (CLI) | payer MEDICARE ==
[~2022-07-02] MED LIST changes: +CLOP-31 PO; -CLOP75TA69 PO
== END ==
LOC: CARD 09:24
PROVIDERS: ATTEND Internal Medicine Cardiovascular Disease
DX: I08.0 Rheumatic disorders of both mitral and aortic valves (principal); I11.9 Hypertensive heart disease without heart failure; I25.10 Atherosclerotic heart disease of native coronary artery without angina pectoris
CPT/HCPCS: 93306

== ENCOUNTER → 2023-02-20 | Outpatient (CLI) | payer MEDICARE ==
[~2023-02-20] MED LIST changes: +CATHETER FLUSH 10 ML SYR IVP PRN; -LOSA100T57 PO; +LOSA100T58 PO; +REGADENOSON 0.4 MG/5 ML SYR IV ONE
[2023-02-20 13:07] VITALS: BP 175/85
--- NOTE | 2023-02-20 15:08 | Cardiology Stress Test Report ---
Stress Test Report Date of Procedure/Referring: Date of Procedure: Feb 20, 2023 PCP Beverley Dumont MD Admitting Physician Admitting Physician: Attending Physician: Rupa Hampton MD Baseline Heart Rate: 60 Baseline Blood Pressure: Blood Pressure Systolic: 175 Blood Pressure Diastolic: 85 Baseline Vitals Vital Signs Date Time Temp Pulse Resp B/P (MAP) Pulse Ox O2 Delivery O2 Flow Rate FiO2 02/20/23 13:07 60 175/85 (115) Baseline EKG: Baseline EKG: NSR Summary After explaining the procedure to the patient, he signed a consent and then brought to the stress nuclear laboratory. Patient received 0.4 mg Lexiscan for stress test, ECG, heart rate and blood pressure were monitored continuously. Resting and stress dose of radio tracer were injected, imaging was acquired and reviewed in short axis, horizontal long axis and vertical long axis views. TID: 1.05 SSS: 9 SDS: 5 EF: 48 Patient tolerated Lexiscan well Reversible ischemia involving the whole inferior wall and inferolateral wall Normal left ventricular size with mild hypokinesia of the inferior wall and septum ejection fraction 48% Copy Copies To 1: BEVERLEY DUMONT MD, BASHAR J MD Feb 20, 2023 15:07
== END ==
LOC: CARD 11:25
PROVIDERS: ATTEND Internal Medicine Cardiovascular Disease
DX: I10 Essential (primary) hypertension (principal); I25.10 Atherosclerotic heart disease of native coronary artery without angina pectoris
CPT/HCPCS: 78452; 93017; A9502

== ENCOUNTER 2023-02-27 08:51 | Day surgery (SDC) | payer MEDICARE ==
[~2023-02-27] VITALS: Ht 177 cm; Wt 82.5 kg
[2023-02-27] VITALS (11 sets, daily range): BP systolic 123–147; BP diastolic 68–80
[~2023-02-27 08:51] MED LIST changes: -CATHETER FLUSH 10 ML SYR IVP PRN; -REGADENOSON 0.4 MG/5 ML SYR IV ONE
[2023-02-27] MEDS ORDERED: NS IV 1000 ML 1,000 ML IV ONE (09:30)
[2023-02-27 09:44] LABS: HEMATOCRIT 45 % (40-54); MEAN CORPUSCULAR HEMOGLOBIN 30 pg (25-34); MEAN CORPUSCULAR HGB CONC 33 g/dL (32-36); MEAN CORPUSCULAR VOLUME 91 fL (80-99); MEAN PLATELET VOLUME 9.4 fL (9.0-12.2); PLATELET COUNT 249 10^3/uL (130-400); WHITE BLOOD COUNT 9.4 10^3/uL (4.3-11.0)
[2023-02-27 09:47] LABS: CLARITY,URINE CLEAR; COLOR,URINE YELLOW; PH,URINE 5.5 (5-9)
[2023-02-27 09:48] LABS: BILIRUBIN,URINE 1+ (NEGATIVE); GLUCOSE, URINE (UA) NEGATIVE (NEGATIVE); KETONES,URINE TRACE (NEGATIVE); LEUKOCYTE ESTERASE ,URINE NEGATIVE (NEGATIVE); NITRITE,URINE NEGATIVE (NEGATIVE); PROTEIN,URINE 2+ (NEGATIVE)
[2023-02-27 09:52] LABS: RBC,URINE 0-2 /HPF
[2023-02-27 09:53] LABS: BACTERIA,URINE NEGATIVE /HPF
--- NOTE | 2023-02-27 09:55 | Diagnostic Imaging Report ---
INDICATION: Chest pain, coronary artery disease. Portable chest 9:30 AM FINDINGS: There are postoperative changes from CABG surgery. There is a dual-chamber pacemaker. Heart size and pulmonary vascularity are normal. Lungs are clear. There are no effusions or pneumothoraces. IMPRESSION: No acute abnormalities in the chest. Dictated by: Dictated on workstation # [id number]
[2023-02-27] MEDS ORDERED: LOSA50TA63 PO (09:58)
[2023-02-27] MEDS ORDERED: METO50TA15 PO (09:58)
[2023-02-27 10:04] LABS: PROTHROMBIN TIME PATIENT 13.8 SEC (12.2-14.7)
[2023-02-27 10:05] LABS: ALBUMIN 4.4 GM/DL (3.2-4.5); BILIRUBIN,TOTAL 1.1 MG/DL (0.1-1.0); CALCIUM 9.8 MG/DL (8.5-10.1); CREATININE SERUM 1.28 MG/DL (0.60-1.30); POTASSIUM 3.9 MMOL/L (3.6-5.0); TOTAL PROTEIN 7.5 GM/DL (6.4-8.2)
[2023-02-27] MEDS ORDERED: HEParin (CATH LAB) 2,000 ML IV ONE (10:59)
[2023-02-27] MEDS ORDERED: LIDOCAINE 1% INJ 20 ML VIAL ONE (10:59)
[2023-02-27] MEDS ORDERED: NS IV 1000 ML 1,000 ML ONE (10:59)
[2023-02-27] MEDS ORDERED: MIDAZOLAM INJ 5 MG/5 ML VIAL ONE (11:01)
[2023-02-27] MEDS ORDERED: fentaNYL INJECTION 100 MCG/2 ML VIAL ONE (11:01)
--- NOTE | 2023-02-27 11:08 | Cardiac Procedure Note-CS/ASA ---
Pre-Procedure Note Pre-Op Procedure Note Date of Available H&P: Feb 21, 2023 Date H&P Reviewed: Feb 27, 2023 Time H&P Reviewed: 11:08 History & Physical: H&P Reviewed, Patient Examed, No changes noted Pre-Operative Diagnosis: Coronary artery disease Moderate Sedation PreProcedure Time 11:08 ASA Score 3 Airway Lungs Heart ASA score ASA 1: a normal healthy patient ASA 2: a patient with a mild systemic disease (mid diabetes, controlled hypertension, obesity ASA 3: a patient with a severe systemic disease that limits activity (angina, COPD, prior Myocardial infarction) ASA 4: a patient with an incapacitating disease that is a constant threat to life (CHF, renal failure) ASA 5: a moribund patient not expected to survive 24 hrs. (ruptured aneurysm) ASA 6: a declared brain- patient whose organs are being harvested. For emergent operations, add the letter E after the classification Mallampati Classification Grade 3 Sedation Plan Analgesia, Amnesia, Plan communicated to team members, Discussed options with patient/fam, Discussed risks with patient/fam The patient is an appropriate candidate to undergo the planned procedure, sedation, and anesthesia. The patient immediately re-assessed prior to indication. NACHO EFRRER MD Feb 27, 2023 11:08
--- NOTE | 2023-02-27 11:48 | Discharge Inst-Post CATH ---
Discharge Inst-CATH/EP Problems Reviewed?: Yes Post Cardiac Cath/EP D/C Inst Follow Up/Plan Appointment with Dr Hampton in 2-4 weeks <b>CARDIAC CATH/EP PROCEDURE DISCHARGE INSTRUCTIONS</b> ACTIVITY * Go Home directly and rest. * Limit activity of the leg (or wrist if it was used) for 7 days including aerobics, swimming, jogging, bicycling, etc. * Restrict stair-climbing for 7 days if possible, if not, climb up with your non-cath leg, then bring together on the same step. * Avoid lifting, pushing, pulling or excessive movement of the affected extremity for 7 days. * Customary sexual activity may be resumed after 2 days-use caution not to use a position that strains or causes pain to the affected extremity. * No driving for 24 hours. * NO SMOKING. * Avoid straining for bowel movements for 7 days. * Gentle walking on level ground is allowed. * Returning to work will depend on the type of procedure and the results. Your doctor will discuss this with you. CALL YOUR DOCTOR FOR ANY OF THE FOLLOWING: *If bleeding from the puncture site occurs- Apply gentle pressure to site with clean cloth and call your doctor or EMS. * If a knot or lump forms under the skin, increases in size, or causes pain. * If bruising appears to be worsening or moving further down your leg instead of disappearing. * Temperature above 101 F. CARE OF YOUR GROIN INCISION; * Bruising or purple discoloration of the skin near the puncture site is common. * You may shower only, no bathtub bathing for 5 days. Be careful to avoid slipping as your leg may feel stiff. * If a closure device was used on your femoral artery, please see the attached guide regarding care of the device and your leg. * Leave dressing on FOR 24 hours. CARE OF YOUR WRIST INCISION; * Bruising or purple discoloration of the skin near the puncture site is common. * You may shower. * DO NOT submerge wrist. * Leave dressing on FOR 24 hours. NACHO HAMPTON MD Feb 27, 2023 11:48
[2023-02-27] MEDS ORDERED: NS IV 1000 ML 1,000 ML IV SCH (12:00)
[2023-02-27] MEDS ORDERED: PATIENT MAY USE OWN MEDS, ALL PO SCH (12:00)
--- NOTE | 2023-02-27 12:06 | Cardiac Cath Report ---
Cardiac Cath Report Physician (s)/Cutting Machine Fixer (s) Physician NACHO FERRER MD Pre-Procedure Diagnosis Pre-Procedure Diagnosis: Coronary artery disease Post-Procedure Note Procedure Start Date: Feb 27, 2023 Name of Procedure: Left heart catheterization Vein graft angiogram LIM angiogram Findings/Procedure Note PROCEDURE NOTE: 87-year-old gentleman with history of coronary artery disease, CABG, multiple interventions in the past, hypertension hyperlipidemia, had an abnormal stress test, scheduled for cardiac catheterization possible PTCA After explaining the procedure to the patient, all pros and cons were explained, all questions were answered. The patient signed the consent and then he was placed on the cardiac catheterization laboratory. Groin was prepped SL fashion local anesthesia was used. Sheath placed in the right femoral artery. Sandra right and left catheter were used to access the coronary system.Vein Graft evaluated. LIM evaluated. Sandra catheter was prolapsed to the left ventricular cavity, pressure was measured pullback LV to aorta was done, no left ventriculogram was done At the end of the procedure the sheath was removed. Closure device was deployed FINDINGS: Hemodynamics LV 129/10, end-diastolic pressure of 10 Aorta 124/61 mean of 82 ANATOMY: Left Main has severe disease Left Anterior Descending is occluded at the midportion, LIM to LAD is patent with good flow distally Left Circumflex is occluded proximally, the vein graft to the obtuse marginal branch is patent with good flow distally Right Coronary Artery is large dominant artery with patent stent in the proximal and mid right coronary artery, proximal to the stent there is 30% stenosis that has not changed compared to the previous study in 2020 LIM to LAD is patent with good flow Vein Graft evaluation showed markers of 2 vein grafts The vein graft jump graft to the diagonal and obtuse marginal branch is patent with good flow distally small vessel disease distally The vein graft to the right coronary artery is known to be occluded LV Gram was not done, pressure was measured CONCLUSION: Severe [place] left coronary system with patent LIM to LAD and vein graft jump graft to the diagonal and obtuse marginal branch with good flow distally, small vessel disease distally Dominant right coronary artery with patent stents in the proximal and mid artery, the artery has moderate diffuse ectasia proximal to the proximal stent there is 30% stenosis that has not changed compared to the previous study Normal left ventricular end-diastolic pressure DISCUSSION AND RECOMMENDATION: Continue to maximize medical therapy. No intervention is recommended Anesthesia Type: Conscious Sedation Estimated blood loss (mL): 20 ml Contrast Amount: 32 ml Total Radiation Dose: 481 mGy Post-Procedure Diagnosis Post-operative diagnosis: Coronary artery disease Hypertension Hyperlipidemia NACHO FERRER MD Feb 27, 2023 12:06
== END 2023-02-27 16:20 ==
LOC: CATH 08:51 → SDC 12:32 → CATH 16:20
PROVIDERS: ATTEND Internal Medicine Cardiovascular Disease
DX: I25.10 Atherosclerotic heart disease of native coronary artery without angina pectoris (principal); E78.2 Mixed hyperlipidemia; I63.9 Cerebral infarction, unspecified; I11.9 Hypertensive heart disease without heart failure; I08.0 Rheumatic disorders of both mitral and aortic valves; I49.5 Sick sinus syndrome; M54.9 Dorsalgia, unspecified; M25.50 Pain in unspecified joint; R94.39 Abnormal result of other cardiovascular function study; F32.A Depression, unspecified; Z87.891 Personal history of nicotine dependence; Z79.82 Long term (current) use of aspirin; Z79.899 Other long term (current) drug therapy; Z95.1 Presence of aortocoronary bypass graft; Z95.0 Presence of cardiac pacemaker; Z79.01 Long term (current) use of anticoagulants; Z90.79 Acquired absence of other genital organ(s); Z87.438 Personal history of other diseases of male genital organs
CPT/HCPCS: 71045; 80053; 80061; 81000; 85027; 85610; 85730; 87081; 93005; 93459; C1760; C1894; 36415

== ENCOUNTER 2023-04-02 15:13 | Emergency (ER) | payer MEDICARE ==
[~2023-04-02] VITALS: Ht 177.8 cm; Wt 82.5 kg
[~2023-04-02 15:13] MED LIST changes: +MIRT-122 PO; -MIRT-96 PO
[2023-04-02] MEDS ORDERED: NS IV 1000 ML 1,000 ML IV SCH (15:45)
[2023-04-02] MEDS ORDERED: HOLD METFORMIN - RECEIVED CONTRAST 20 ML VIAL IV SCH (16:00)
[2023-04-02] MEDS ORDERED: NS 100 ML (IVPB) BAG IV ONE (16:00)
[2023-04-02] MEDS ORDERED: IOHEXOL 350 MG/ML 100 ML (OMNIPAQUE 350) VIAL IV ONE (16:00)
[2023-04-02 16:01] LABS: BASOPHILS % (AUTO) 0 % (0-10); EOSINOPHILS # (AUTO) 0.1 10^3/uL (0.0-0.3); EOSINOPHILS % (AUTO) 2 % (0-10); HEMATOCRIT 42 % (40-54); HEMOGLOBIN 13.8 g/dL (13.3-17.7); LYMPHOCYTES # (AUTO) 1.4 10^3/uL (1.0-4.0); LYMPHOCYTES % (AUTO) 15 % (12-44); MEAN CORPUSCULAR HEMOGLOBIN 30 pg (25-34); MEAN CORPUSCULAR HGB CONC 33 g/dL (32-36); MEAN CORPUSCULAR VOLUME 90 fL (80-99); MEAN PLATELET VOLUME 9.2 fL (9.0-12.2); MONOCYTES # (AUTO) 1.2 10^3/uL (0.0-1.0); MONOCYTES % (AUTO) 12 % (0-12); NEUTROPHILS # (AUTO) 6.8 10^3/uL (1.8-7.8); NEUTROPHILS % (AUTO) 71 % (42-75); PLATELET COUNT 223 10^3/uL (130-400); WHITE BLOOD COUNT 9.6 10^3/uL (4.3-11.0)
--- NOTE | 2023-04-02 16:04 | ED GI ---
General Chief Complaint: Abdominal/GI Problems Stated Complaint: DIARRHEA Nursing Triage Note: PT TO RM 7 BY WC WITH CC OF RECTAL PAIN AND DIARRHEA SINCE 03/31. PT STATES HE "FEELS LIKE THERE IS SOMETHING STUCK" IN HIS RECTUM. PT DENIES ABD PAIN. PT POOR HISTORIAN. Source of Information: Patient Exam Limitations: No Limitations History of Present Illness Date Seen by Provider: Apr 02, 2023 Time Seen by Provider: 15:23 Initial Comments 87-year-old male presents to the ER with issues having bowel movements. He states that either Saturday or Saturday he had a very large bowel movement. States that since then he has had several small bowel movements. States that he soils his pants at times with small bowel movements. He reports that his stools are not really hard, but they seem hard to push out. He feels as though he is constipated. He reports he has had right red blood in his stools as well. Complaining of rectal pain. Denies abdominal pain. He states he took MiraLAX once last week, has not taken anything recently. Denies history of issues with constipation. Denies any recent medication changes. States that he thinks he has been drinking enough water. Denies fevers, abdominal pain, nausea, vomiting, dysuria. He denies lower back pain, states he is able to feel in his rectum when he is soiling himself. Patient is ambulatory. Allergies and Home Medications Allergies Coded Allergies: nitroglycerin (Unverified Allergy, Severe, SYNCOPE, 10/23/19) Bupdpar-TAN-AeP Reductase Inhibitor (Verified Adverse Reaction, Mild, JOINT PAIN, 10/23/19) Patient Home Medication List Home Medication List Reviewed: Yes Apixaban (Eliquis) 5 Mg Tablet, 5 MG PO BID Prescribed by: AURA OMER on 11/27/21 0835 Aspirin (Aspirin EC) 81 Mg Tablet.dr, 81 MG PO DAILY, (Reported) Entered as Reported by: JOSETTE BREEN on 05/19/18 1011 Cholecalciferol (Vitamin D3) (Vitamin D3) 25 Mcg Tablet, 25 MCG PO HS, (Reported) Entered as Reported by: ELSY GALVAN on 03/29/21 0750 Cyanocobalamin (Vitamin B-12) (Vitamin B-12) 1,000 Mcg Tablet, 1,000 MCG PO HS, (Reported) Entered as Reported by: ELSY GALVAN on 03/29/21 0750 Diltiazem HCl (Diltiazem 24Hr ER) 240 Mg Cap.er.24h, 240 MG PO HS, (Reported) Entered as Reported by: JENNIFER OSBORN on 11/24/21 1504 Escitalopram Oxalate (Escitalopram Oxalate) 20 Mg Tablet, 20 MG PO HS, (Reported) Entered as Reported by: JAX FAYE on 10/23/19 0957 Ezetimibe (Ezetimibe) 10 Mg Tablet, 10 MG PO HS, (Reported) Entered as Reported by: JOSETTE BREEN on 05/19/18 1011 Famotidine (Famotidine) 20 Mg Tablet, 20 MG PO BID Prescribed by: AURA OMER on 11/27/21 1205 Losartan Potassium (Losartan Potassium) 50 Mg Tablet, 50 MG PO DAILY, (Reported) Entered as Reported by: BERT FUENTES on 02/27/23 0958 Metoprolol Tartrate (Metoprolol Tartrate) 50 Mg Tablet, 50 MG PO DAILY, (Reported) Entered as Reported by: BERT FUENTES on 02/27/23 0958 Mirtazapine (Remeron) 15 Mg Tablet, 15 MG PO HS, (Reported) Entered as Reported by: JAX FAYE on 10/23/19 0957 Multivit-Min/FA/Lycopene/Lut (Centrum Silver Tablet) 1 Each Tablet, 1 EACH PO HS, (Reported) Entered as Reported by: JAX FAYE on 10/23/19 0957 Review of Systems Review of Systems Constitutional: see HPI Past Kgrvifs-Oufesp-Cjhxta Hx Patient Social History Tobacco Use?: No Substance use?: No Alcohol Use?: No Immunizations Up To Date Tetanus Booster (TDap): Unknown PED Vaccines UTD: No First/Initial COVID19 Vaccinat: 2020 Second COVID19 Vaccination Dionisio: 2020 Third COVID19 Vaccination Date: 2020 Seasonal Allergies Seasonal Allergies: No Past Medical History Surgery/Hospitalization HX: cabg, stents, l hip, cholecystectomy, ppm, turp tia, htn, cad, bph, arthritis, chalkyitsik, prostate/skin ca Surgeries: Yes (L THR) Adenoidectomy, Appendectomy, Cardiac, CABG, Coronary Stent, Gallbladder, Orthopedic, Pacemaker, Tonsillectomy, Transurethral Resection Respiratory: Yes (MILD DYSPNEA ON EXERTION) Asthma Currently Using CPAP: No Currently Using BIPAP: No Cardiac: Yes (CABG 1997, STENT 2014) Coronary Artery Disease, Heart Attack, High Cholesterol, Hypertension Neurological: Yes (TIA 09/2018--NO RESIDUAL ; CVA 2017--NO RESIDUAL) Stroke, TIA Reproductive Disorders: Yes (E.D.) Sexually Transmitted Disease: No HIV/AIDS: No Genitourinary: Yes (TURP) Benign Prostatic Hyperpl, Prostate Problems Gastrointestinal: No Gall Bladder Disease Musculoskeletal: Yes Arthritis, Fractures Endocrine: No HEENT: Yes (DENTURES) Cataract Loss of Vision: Denies Hearing Impairment: Hard of Hearing Cancer: Yes Prostate, Skin Did You Recieve Any Treatments: Yes What Type of Treatment Did You: Radiation, Surgical Intervention Psychosocial: No Integumentary: No Blood Disorders: No Adverse Reaction/Blood Tranf: Yes (HAS HAD BLOOD WITH NO REACTION) Family Medical History Alzheimer's disease 19 FATHER, Onset:60 years & older Cardiovascular disease 19 FATHER, Onset:15's - 20 (Was told that he had a "Leaky Heart") FH: brain cancer 19 MOTHER, Onset:60 years & older G8 BROTHER, Onset:50's - 60 FH: lung cancer 19 MOTHER, Onset:60 years & older FH: sudden G8 BROTHER, Onset:Childhood (Was ran over by a car at the age of 6.) Heart Disease, Hypertension Physical Exam Vital Signs Vital Signs - First Documented 04/02/23 15:20 Temp 36.3 Pulse 70 Resp 18 B/P (MAP) 119/67 (84) Pulse Ox 98 O2 Delivery Room Air Capillary Refill : Less Than 3 Seconds Height/Weight/BMI Height: 5'9.00" Weight: 180lbs. 4.0oz. 81.766957ku; 26.00 BMI Method:Estimated General Appearance: WD/WN, no apparent distress Neck: supple, normal inspection Respiratory: lungs clear, normal breath sounds, no respiratory distress, no accessory muscle use Cardiovascular: regular rate, rhythm Gastrointestinal: normal bowel sounds, non tender, soft Genital/Rectal: normal genital exam, normal rectal exam, heme positive stool Extremities: normal range of motion, normal inspection Neurologic/Psychiatric: alert, normal mood/affect Skin: normal color, warm/dry Procedures/Interventions Suture Size: 5-0 Progress/Results/Core Measures Results/Orders Lab Results Laboratory Tests Test 04/02/23 15:50 Range/Units White Blood Count 9.6 4.3-11.0 10^3/uL Red Blood Count 4.60 4.30-5.52 10^6/uL Hemoglobin 13.8 13.3-17.7 g/dL Hematocrit 42 40-54 % Mean Corpuscular Volume 90 80-99 fL Mean Corpuscular Hemoglobin 30 25-34 pg Mean Corpuscular Hemoglobin Concent 33 32-36 g/dL Red Cell Distribution Width 13.8 10.0-14.5 % Platelet Count 223 130-400 10^3/uL Mean Platelet Volume 9.2 9.0-12.2 fL Immature Granulocyte % (Auto) 1 % Neutrophils (%) (Auto) 71 42-75 % Lymphocytes (%) (Auto) 15 12-44 % Monocytes (%) (Auto) 12 0-12 % Eosinophils (%) (Auto) 2 0-10 % Basophils (%) (Auto) 0 0-10 % Neutrophils # (Auto) 6.8 1.8-7.8 10^3/uL Lymphocytes # (Auto) 1.4 1.0-4.0 10^3/uL Monocytes # (Auto) 1.2 H 0.0-1.0 10^3/uL Eosinophils # (Auto) 0.1 0.0-0.3 10^3/uL Basophils # (Auto) 0.0 0.0-0.1 10^3/uL Immature Granulocyte # (Auto) 0.1 0.0-0.1 10^3/uL Sodium Level 136 135-145 MMOL/L Potassium Level 4.4 3.6-5.0 MMOL/L Chloride Level 103 98-107 MMOL/L Carbon Dioxide Level 22 21-32 MMOL/L Anion Gap 11 5-14 MMOL/L Blood Urea Nitrogen 21 H 7-18 MG/DL Creatinine 1.29 0.60-1.30 MG/DL Estimat Glomerular Filtration Rate 54 BUN/Creatinine Ratio 16 Glucose Level 107 H 70-105 MG/DL Calcium Level 9.4 8.5-10.1 MG/DL Corrected Calcium 9.4 8.5-10.1 MG/DL Total Bilirubin 1.2 H 0.1-1.0 MG/DL Aspartate Amino Transf (AST/SGOT) 20 5-34 U/L Alanine Aminotransferase (ALT/SGPT) 19 0-55 U/L Alkaline Phosphatase 103 40-136 U/L Total Protein 7.2 6.4-8.2 GM/DL Albumin 4.0 3.2-4.5 GM/DL My Orders Orders - LILIAN POZO APRN Ua Culture If Indicated (04/02/23 15:23) Comprehensive Metabolic Panel (04/02/23 15:44) Ed Iv/Invasive Line Start (04/02/23 15:44) Cbc And Automated Diff (04/02/23 15:44) Ct Abdomen/Pelvis W (04/02/23 15:44) Ns Iv 1000 Ml (Ns Iv 1000 Ml) (04/02/23 15:45) Iohexol Injection (Omnipaque 350 Mg/Ml 1 (04/02/23 16:00) Received Contrast (Hold Metformin- Contr (04/02/23 16:00) Ns (Ivpb) 100 Ml (Sodium Chloride 0.9% 1 (04/02/23 16:00) Na Phos/Na Biphos Adult Enema (Na Phos/N (04/02/23 17:30) Medications Given in ED Current Medications Medications Dose Ordered Sig/Leana Route Start Time Stop Time Status Last Admin Dose Admin Iohexol 100 ml ONCE ONCE IV 04/02/23 16:00 04/02/23 16:01 DC 04/02/23 16:30 80 ML Sodium Biphosphate/ Sodium Phosphate 1 ea ONCE ONCE PA 04/02/23 17:30 04/02/23 17:31 DC 04/02/23 17:28 1 EA Sodium Chloride 100 ml ONCE ONCE IV 04/02/23 16:00 04/02/23 16:01 DC 04/02/23 16:30 80 ML Vital Signs/I&O 04/02/23 04/02/23 15:20 17:33 Temp 36.3 Pulse 70 70 Resp 18 18 B/P (MAP) 119/67 (84) 151/88 Pulse Ox 98 98 O2 Delivery Room Air Room Air Blood Pressure Mean: 84 Progress Progress Note : Progress Note Patient seen and evaluated, sitting on commode during initial encounter, had a soft small bowel movement, no acute distress. Rectal exam completed, positive fecal occult. Due to no history of constipation, bowel and positive fecal occult, work-up initiated including CBC, CMP, UA, CT abdomen pelvis. IV fluids ordered. [address] reviewed. CBC grossly normal. CMP shows slightly elevated BUN, creatinine 1.29, GFR 54, these are at baseline. Total bilirubin slightly elevated 1.2 also similar to previous. CT shows moderate volume of stool in the colon particularly in the rectosigmoid colon. No bowel obstruction. There is also a flash filling hepatic hemangioma. Results discussed with patient and son. Patient reports that he had another bowel movement while he was in the ER and he is feeling much better. Since there is still moderate amount of stool in the colon, I will send patient home with a Fleet enema. Patient also provided information regarding how to treat constipation at home. Patient is stable for discharge. Discharge instructions and return precautions provided. Diagnostic Imaging Diagonstic Imaging: CT Plain Films/CT/US/NM/MRI: abdomen, pelvis Comments [facility], [place] NAME: SHAVONNE MAIN [facility] REC#: [id number] PT STATUS: REG ER : 1935 PHYSICIAN: LILIAN POZO APRN ADMIT DATE: 04/02/23/ER Signed Date of Exam:04/02/23 CT ABDOMEN/PELVIS W EXAMINATION: CT abdomen and pelvis with intravenous contrast. TECHNIQUE: Multiple contiguous axial images were obtained through the abdomen and pelvis after the uneventful administration of intravenous contrast. All CT scans use one or more of the following dose optimizing techniques: automated exposure control, MA and/or KvP adjustment based on patient size and exam type or iterative reconstruction. HISTORY: Abdominal pain. Constipation. COMPARISON: 11/24/2021. FINDINGS: The heart is unremarkable. Calcified granulomas are seen in the lung bases. Simple cortical cysts are seen in both kidneys. No solid renal mass or hydronephrosis. The urinary bladder is nondistended. Likely flash filling hemangioma is seen in the lateral aspect of the right hepatic lobe. The spleen, pancreas, and adrenal glands have a normal appearance. The gallbladder is surgically absent. The portal vein is patent. There is no pathologically enlarged mesenteric or retroperitoneal adenopathy. The bowel loops are nondilated. The appendix is visualized in the right lower quadrant has a normal appearance. A moderate volume of stool is seen in the colon, particularly in the rectosigmoid colon. There is no free fluid or free air. No acute osseous abnormalities. There is calcified aortic and iliac atherosclerotic plaque. Ureters and bladder are grossly normal. Radiation seeds are seen in the prostate. There is no free air, loculated collection, or adenopathy in the pelvis. IMPRESSION: 1. Moderate volume of stool in the colon, particularly in the rectosigmoid colon. Findings are suggestive of constipation. No bowel obstruction. No free fluid or free air. Dictated by: Dictated on workstation # [id number] Dict: 04/02/23 1637 Trans: 04/02/23 164 CV [id number] Interpreted by: NAY CALVERT DO Electronically signed by: NAY CALVERT DO 04/02/231641 Departure Impression Primary Impression: Constipation Disposition: 01 HOME, SELF-CARE Condition: Stable Departure-Patient Inst. Decision time for Depature: 17:15 Referrals: BEVERLEY YOUNGER MD (PCP/Family) Primary Care Physician STEPHANI SALINAS DO Patient Instructions: Constipation, Adult (DC) Add. Discharge Instructions: Use the Fleet enema tonight. You may try pxxy-fla-tphoknv medications like MiraLAX Colace to soften your stools, you may try to Bisacodyl which is a laxative. You may also try glycerin suppositories. Follow-up with your primary care provider if symptoms are not improving. Follow-up with your primary care provider regarding the hemangioma on your CT. Follow-up with Dr. Salinas regarding the blood in your stool. Return for severe abdominal pain, or any other new, concerning, or worsening symptoms. All discharge instructions reviewed with patient and/or family. Voiced understanding. Copy Copies To 1: BEVERLEY YOUNGER MD, BRITTANY R APRN Apr 02, 2023 16:04
[2023-04-02 16:16] LABS: POTASSIUM 4.4 MMOL/L (3.6-5.0)
[2023-04-02 16:17] LABS: CALCIUM 9.4 MG/DL (8.5-10.1)
[2023-04-02 16:19] LABS: TOTAL PROTEIN 7.2 GM/DL (6.4-8.2)
[2023-04-02 16:20] LABS: BILIRUBIN,TOTAL 1.2 MG/DL (0.1-1.0)
[2023-04-02 16:22] LABS: CREATININE SERUM 1.29 MG/DL (0.60-1.30)
--- NOTE | 2023-04-02 16:42 | Diagnostic Imaging Report ---
EXAMINATION: CT abdomen and pelvis with intravenous contrast. TECHNIQUE: Multiple contiguous axial images were obtained through the abdomen and pelvis after the uneventful administration of intravenous contrast. All CT scans use one or more of the following dose optimizing techniques: automated exposure control, MA and/or KvP adjustment based on patient size and exam type or iterative reconstruction. HISTORY: Abdominal pain. Constipation. COMPARISON: 11/24/2021. FINDINGS: The heart is unremarkable. Calcified granulomas are seen in the lung bases. Simple cortical cysts are seen in both kidneys. No solid renal mass or hydronephrosis. The urinary bladder is nondistended. Likely flash filling hemangioma is seen in the lateral aspect of the right hepatic lobe. The spleen, pancreas, and adrenal glands have a normal appearance. The gallbladder is surgically absent. The portal vein is patent. There is no pathologically enlarged mesenteric or retroperitoneal adenopathy. The bowel loops are nondilated. The appendix is visualized in the right lower quadrant has a normal appearance. A moderate volume of stool is seen in the colon, particularly in the rectosigmoid colon. There is no free fluid or free air. No acute osseous abnormalities. There is calcified aortic and iliac atherosclerotic plaque. Ureters and bladder are grossly normal. Radiation seeds are seen in the prostate. There is no free air, loculated collection, or adenopathy in the pelvis. IMPRESSION: 1. Moderate volume of stool in the colon, particularly in the rectosigmoid colon. Findings are suggestive of constipation. No bowel obstruction. No free fluid or free air. Dictated by: Dictated on workstation # [id number]
[2023-04-02] MEDS ORDERED: Sodium Phosphate/Sodium Biphosphate ADULT enema PR ONE (17:30)
[2023-04-02 17:33] VITALS: BP 151/88
== END 2023-04-02 17:36 | disposition home or self-care (01) ==
LOC: EDUNIT# 15:13 → ER 15:14
DX: K59.00 Constipation, unspecified (principal)
CPT/HCPCS: 36415; 74177; 80053; 85025; 96360

== ENCOUNTER 2023-04-25 15:53 | Emergency (ER) | payer MEDICARE ==
[~2023-04-25] VITALS: Ht 180 cm; Wt 83.9 kg
[2023-04-25] MEDS ORDERED: ASPIRIN 81 MG CHEWABLE TABLET PO ONE (16:15)
--- NOTE | 2023-04-25 16:19 | ED Chest Pain ---
General Chief Complaint: Chest Pain Stated Complaint: CHEST PAINS, COOLNESS IN LT ARM Nursing Triage Note: PT AMBULATES TO RM 05 WITH C/O CHEST PAIN ABOUT 20 MIN PLASTER PATTERN CASTER WHEN PT WAS STACKING WOOD. PT DESCRIBES CHEST PAIN SHARP,STABBING, "STARTING AT HEART AND MOVING DOWN THROUGH STOMACH THEN LEFT ARM GOT NUMB", LASTING ABOUT 30 SEC. SINCE TRIAGE, THESE SYMPTOMS HAVE SINCE RESOLVED PER PT. PT HAS HX OF HEART ATTACKS AND BYPASS. Source: patient Exam Limitations: no limitations History of Present Illness Date Seen by Provider: Apr 25, 2023 Time Seen by Provider: 16:16 Initial Comments Patient is a 87-year-old male with a history of coronary artery disease, CABG, hypertension who presents the ED for chest pain. Patient states chest pain started about 30 to 40 minutes ago when he was stacking wood. Sharp stabbing pain that went through his chest through his heart and moved down through his abdomen. States he felt numbness in his left arm felt like more coolness. This lasted for about 30 seconds. States he had this numbness and coolness of the left arm right before arrival but currently having no complaint. States he has felt slightly fatigued and weak and cool over the past week. Denies cough, runny nose, sore throat, vomiting or diarrhea. Extensive cardiac history. Does follow Dr. Hampton. Does have a pacemaker. Currently on Eliquis. Denies any leg pain or leg swelling at this time. States he had a cardiac cath on February 27 secondary to abnormal stress test. Denies of any stents placement. Patient denies headache, visual changes, unilateral muscle weakness or sensory changes. Here with family. Allergies and Home Medications Allergies Coded Allergies: nitroglycerin (Unverified Allergy, Severe, SYNCOPE, 10/23/19) Vhnabza-FHE-ZkO Reductase Inhibitor (Verified Adverse Reaction, Mild, JOINT PAIN, 10/23/19) Patient Home Medication List Home Medication List Reviewed: Yes Apixaban (Eliquis) 5 Mg Tablet, 5 MG PO BID Prescribed by: AURA OMER on 11/27/21 0835 Aspirin (Aspirin EC) 81 Mg Tablet., 81 MG PO DAILY, (Reported) Entered as Reported by: JOSETTE BREEN on 05/19/18 1011 Cholecalciferol (Vitamin D3) (Vitamin D3) 25 Mcg Tablet, 25 MCG PO HS, (Reported) Entered as Reported by: ELSY GALVAN on 03/29/21 0750 Cyanocobalamin (Vitamin B-12) (Vitamin B-12) 1,000 Mcg Tablet, 1,000 MCG PO HS, (Reported) Entered as Reported by: ELSY GALVAN on 03/29/21 0750 Diltiazem HCl (Diltiazem 24Hr ER) 240 Mg Cap.er.24h, 240 MG PO HS, (Reported) Entered as Reported by: JENNIFER OSBORN on 11/24/21 1504 Escitalopram Oxalate (Escitalopram Oxalate) 20 Mg Tablet, 20 MG PO HS, (Reported) Entered as Reported by: JAX FAYE on 10/23/19 0957 Ezetimibe (Ezetimibe) 10 Mg Tablet, 10 MG PO HS, (Reported) Entered as Reported by: JOSETTE BREEN on 05/19/18 1011 Famotidine (Famotidine) 20 Mg Tablet, 20 MG PO BID Prescribed by: AURA OMER on 11/27/21 1205 Losartan Potassium (Losartan Potassium) 50 Mg Tablet, 50 MG PO DAILY, (Reported) Entered as Reported by: BERT FUENTES on 02/27/23 0958 Metoprolol Tartrate (Metoprolol Tartrate) 50 Mg Tablet, 50 MG PO DAILY, (Reported) Entered as Reported by: BERT UFENTES on 02/27/23 09 Mirtazapine (Remeron) 15 Mg Tablet, 15 MG PO HS, (Reported) Entered as Reported by: JAX FAYE on 10/23/19 09 Multivit-Min/FA/Lycopene/Lut (Centrum Silver Tablet) 1 Each Tablet, 1 EACH PO HS, (Reported) Entered as Reported by: JAX FAYE on 10/23/19 09 Review of Systems Review of Systems Constitutional: No chills, No diaphoresis EENTM: No Double Vision, No Eye Pain, No Mouth Pain, No Mouth Swelling Respiratory: Denies Cough Cardiovascular: Chest Pain Gastrointestinal: Denies Abdominal Pain, Denies Diarrhea, Denies Nausea, Denies Vomiting Genitourinary: Denies Burning, Denies Discharge Musculoskeletal: No back pain, No joint pain; other Skin: No change in color Psychiatric/Neurological: Denies Anxiety, Denies Depressed All Other Systems Reviewed Negative Unless Noted: Yes Past Ejtqpfd-Oitszx-Swzviv Hx Patient Social History Tobacco Use?: No Substance use?: No Alcohol Use?: No Immunizations Up To Date Tetanus Booster (TDap): Unknown PED Vaccines UTD: No Influenza Vaccine Up-to-Date: Yes; Up-to-Date First/Initial COVID19 Vaccinat: 2019 Second COVID19 Vaccination Dionisio: 2019 Third COVID19 Vaccination Date: 2019 Seasonal Allergies Seasonal Allergies: No Past Medical History Surgery/Hospitalization HX: cabg, stents, l hip, cholecystectomy, ppm, turp tia, htn, cad, bph, arthritis, [place], prostate/skin ca Surgeries: Yes (L THR) Adenoidectomy, Appendectomy, Cardiac, CABG, Coronary Stent, Gallbladder, Orthopedic, Pacemaker, Tonsillectomy, Transurethral Resection Respiratory: Yes (MILD DYSPNEA ON EXERTION) Asthma Currently Using CPAP: No Currently Using BIPAP: No Cardiac: Yes (CABG 1997, STENT 2014) Coronary Artery Disease, Heart Attack, High Cholesterol, Hypertension Neurological: Yes (TIA 09/2018--NO RESIDUAL ; CVA 2017--NO RESIDUAL) Stroke, TIA Reproductive Disorders: Yes (E.D.) Sexually Transmitted Disease: No HIV/AIDS: No Genitourinary: Yes (TURP) Benign Prostatic Hyperpl, Prostate Problems Gastrointestinal: No Gall Bladder Disease Musculoskeletal: Yes Arthritis, Fractures Endocrine: No HEENT: Yes (DENTURES) Cataract Loss of Vision: Denies Hearing Impairment: Hard of Hearing Cancer: Yes Prostate, Skin Did You Recieve Any Treatments: Yes What Type of Treatment Did You: Radiation, Surgical Intervention Psychosocial: No Integumentary: No Blood Disorders: No Adverse Reaction/Blood Tranf: Yes (HAS HAD BLOOD WITH NO REACTION) Family Medical History Alzheimer's disease 19 FATHER, Onset:60 years & older Cardiovascular disease 19 FATHER, Onset:15's - 20 (Was told that he had a "Leaky Heart") FH: brain cancer 19 MOTHER, Onset:60 years & older G8 BROTHER, Onset:50's - 60 FH: lung cancer 19 MOTHER, Onset:60 years & older FH: sudden G8 BROTHER, Onset:Childhood (Was ran over by a car at the age of 6.) Heart Disease, Hypertension Physical Exam Vital Signs Vital Signs - First Documented 04/25/23 16:02 Temp 36.1 Pulse 80 Resp 20 B/P (MAP) 152/84 (106) Pulse Ox 94 O2 Delivery Room Air Capillary Refill : Less Than 3 Seconds Height, Weight, BMI Height: 5'9.00" Weight: 180lbs. 4.0oz. 81.482896gc; 25.00 BMI Method:Estimated General Appearance: No Apparent Distress, WD/WN HEENT: PERRL/EOMI, TMs Normal, Normal ENT Inspection, Pharynx Normal Neck: Full Range of Motion, Normal Inspection, Non Tender, Supple Respiratory: Chest Non Tender, Lungs Clear, Normal Breath Sounds, No Accessory Muscle Use, No Respiratory Distress Cardiovascular: Regular Rate, Rhythm, No Edema, No Gallop, No JVD, No Murmur Gastrointestinal: Normal Bowel Sounds, No Organomegaly, No Pulsatile Mass, Non Tender Extremity: Normal Capillary Refill, Normal Inspection, Normal Range of Motion Neurologic/Psychiatric: Alert, Oriented x3, No Motor/Sensory Deficits, Normal Mood/Affect, economic specialist II-XII Norm as Tested Skin: Normal Color, Warm/Dry Procedures/Interventions Suture Size: 5-0 Progress/Results/Core Measures Results/Orders Lab Results Laboratory Tests Test 04/25/23 16:25 04/25/23 16:28 04/25/23 16:39 04/25/23 18:30 Range/Units Influenza Type A (RT-PCR) Not Detected Not Detecte Influenza Type B (RT-PCR) Not Detected Not Detecte SARS-CoV-2 RNA (RT-PCR) Detected H Not Detecte White Blood Count 6.9 4.3-11.0 10^3/uL Red Blood Count 4.10 L 4.30-5.52 10^6/uL Hemoglobin 12.2 L 13.3-17.7 g/dL Hematocrit 38 L 40-54 % Mean Corpuscular Volume 92 80-99 fL Mean Corpuscular Hemoglobin 30 25-34 pg Mean Corpuscular Hemoglobin Concent 32 32-36 g/dL Red Cell Distribution Width 14.0 10.0-14.5 % Platelet Count 200 130-400 10^3/uL Mean Platelet Volume 9.4 9.0-12.2 fL Immature Granulocyte % (Auto) 0 % Neutrophils (%) (Auto) 64 42-75 % Lymphocytes (%) (Auto) 18 12-44 % Monocytes (%) (Auto) 13 H 0-12 % Eosinophils (%) (Auto) 4 0-10 % Basophils (%) (Auto) 0 0-10 % Neutrophils # (Auto) 4.4 1.8-7.8 10^3/uL Lymphocytes # (Auto) 1.2 1.0-4.0 10^3/uL Monocytes # (Auto) 0.9 0.0-1.0 10^3/uL Eosinophils # (Auto) 0.3 0.0-0.3 10^3/uL Basophils # (Auto) 0.0 0.0-0.1 10^3/uL Immature Granulocyte # (Auto) 0.0 0.0-0.1 10^3/uL Prothrombin Time 16.0 H 12.2-14.7 SEC INR Comment 1.2 0.8-1.4 Activated Partial Thromboplast Time 34 24-35 SEC Sodium Level 135 135-145 MMOL/L Potassium Level 4.3 3.6-5.0 MMOL/L Chloride Level 102 98-107 MMOL/L Carbon Dioxide Level 27 21-32 MMOL/L Anion Gap 6 5-14 MMOL/L Blood Urea Nitrogen 25 H 7-18 MG/DL Creatinine 1.22 0.60-1.30 MG/DL Estimat Glomerular Filtration Rate 58 BUN/Creatinine Ratio 20 Glucose Level 100 70-105 MG/DL Calcium Level 8.8 8.5-10.1 MG/DL Corrected Calcium 9.1 8.5-10.1 MG/DL Magnesium Level 2.0 1.6-2.4 MG/DL Total Bilirubin 0.6 0.1-1.0 MG/DL Aspartate Amino Transf (AST/SGOT) 19 5-34 U/L Alanine Aminotransferase (ALT/SGPT) 17 0-55 U/L Alkaline Phosphatase 81 40-136 U/L Myoglobin 89.7 10.0-92.0 NG/ML Troponin I 0.032 H < 0.028 <0.028 NG/ML B-Type Natriuretic Peptide 159.4 H <100.0 PG/ML Total Protein 6.7 6.4-8.2 GM/DL Albumin 3.6 3.2-4.5 GM/DL Lipase 33 8-78 U/L D-Dimer 0.49 0.00-0.49 UG/ML My Orders Orders - BARTLETT,HERO A PA Cbc And Automated Diff (04/25/23 16:05) Magnesium (04/25/23 16:05) Chest 1 View, Ap/Pa Only (04/25/23 16:05) Ekg Tracing (04/25/23 16:05) Comprehensive Metabolic Panel (04/25/23 16:05) Myoglobin Serum (04/25/23 16:05) Protime With Inr (04/25/23 16:05) Partial Thromboplastin Time (04/25/23 16:05) O2 (04/25/23 16:05) Monitor-Rhythm Ecg Trace Only (04/25/23 16:05) Ed Iv/Invasive Line Start (04/25/23 16:05) Lipase (04/25/23 16:05) Bnp López (04/25/23 16:05) Troponin I López (04/25/23 16:05) Aspirin Chewable Tablet (Aspirin Chewabl (04/25/23 16:15) Covid 19 Inhouse Test (04/25/23 16:14) Influenza A And B By Pcr (04/25/23 16:14) Fibrin Degradation Products (04/25/23 16:37) Troponin I Simpson (04/25/23 18:28) Medications Given in ED Current Medications Medications Dose Ordered Sig/Leana Route Start Time Stop Time Status Last Admin Dose Admin Aspirin 324 mg ONCE ONCE PO 04/25/23 16:15 04/25/23 16:16 DC 04/25/23 16:13 324 MG Vital Signs/I&O 04/25/23 04/25/23 16:02 19:17 Temp 36.1 Pulse 80 60 Resp 20 20 B/P (MAP) 152/84 (106) 128/82 Pulse Ox 94 98 O2 Delivery Room Air Room Air Blood Pressure Mean: 106 Departure Communication (PCP) Patient is a 87-year-old male with extensive cardiac history presents ED with acute episode of substernal to left-sided chest pain while stacking wood. This occurred right before arrival. Currently asymptomatic on arrival. Patient follows Dr. Hampton. Did have a cardiac stress test in February. No intervention was recommended and has been treated conservatively. Patient does have a pacemaker. Interrogation of the pacemaker did show episodes of atrium high rate over the past 3 months but nothing during his event today. Did have a episode around 1 PM today. Heart rates been between 60 to 80 bpm on arrival. Cardiologic work-up was initiated. EKG showed atrial and ventricular paced rhythm. CBC, CMP was grossly unremarkable besides a troponin of 0.032 and a BNP of 179. Chest x-ray did not show any acute abnormality. Normal kidney function and liver function. Patient did receive a full aspirin. After initial results I did add COVID influenza as he states over the past week he has felt slightly fatigued with chills. No specific cough or shortness of breath. Tested positive for COVID. Patient is out of the timeframe for treatment at this time. Patient is not requiring any oxygen at this time. Negative D-dimer. 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 Heart score of 4. At this time recommended a 2-hour delta troponin which I do believe is reasonable at this time. Delta troponin was normal. Patient remained asymptomatic. Discussed these results with family. Outpatient cardiac follow-up was recommended by cardiology at this time. if any worsening chest pain or shortness of breath to return back to ED.. Recommend wearing a mask at this time for additional 4 to 5 days for COVID. He states the weakness and fatigue seems to be improving. Impression Primary Impression: Chest pain Disposition: 01 HOME, SELF-CARE Condition: Stable Departure-Patient Inst. Decision time for Depature: 19:09 Referrals: BEVERLEY YOUNGER MD (PCP/Family) Primary Care Physician NACHO HAMPTON MD Patient Instructions: Chest Pain, Adult ED Add. Discharge Instructions: Recommend continue monitoring symptoms at home. Outpatient cardiology follow- up. Recommend wearing a mask for additional 4 to 5 days for symptoms. All discharge instructions reviewed with patient and/or family. Voiced understanding. HERO BARTLETT Apr 25, 2023 16:18
[2023-04-25 16:32] LABS: BASOPHILS % (AUTO) 0 % (0-10); EOSINOPHILS # (AUTO) 0.3 10^3/uL (0.0-0.3); EOSINOPHILS % (AUTO) 4 % (0-10); HEMATOCRIT 38 % (40-54); HEMOGLOBIN 12.2 g/dL (13.3-17.7); LYMPHOCYTES # (AUTO) 1.2 10^3/uL (1.0-4.0); LYMPHOCYTES % (AUTO) 18 % (12-44); MEAN CORPUSCULAR HEMOGLOBIN 30 pg (25-34); MEAN CORPUSCULAR HGB CONC 32 g/dL (32-36); MEAN CORPUSCULAR VOLUME 92 fL (80-99); MEAN PLATELET VOLUME 9.4 fL (9.0-12.2); MONOCYTES # (AUTO) 0.9 10^3/uL (0.0-1.0); MONOCYTES % (AUTO) 13 % (0-12); NEUTROPHILS # (AUTO) 4.4 10^3/uL (1.8-7.8); NEUTROPHILS % (AUTO) 64 % (42-75); PLATELET COUNT 200 10^3/uL (130-400); WHITE BLOOD COUNT 6.9 10^3/uL (4.3-11.0)
[2023-04-25 16:42] LABS: ALBUMIN 3.6 GM/DL (3.2-4.5)
[2023-04-25 16:43] LABS: POTASSIUM 4.3 MMOL/L (3.6-5.0)
--- NOTE | 2023-04-25 16:43 | Diagnostic Imaging Report ---
INDICATION: Chest pain COMPARISON: 02/27/2023 FINDINGS: Pacemaker device and sternal wires stable. Heart size upper limits but stable. No focal infiltrate, failure pattern, effusion or pneumothorax. No free air beneath the diaphragms. IMPRESSION: Stable chest Dictated by: Dictated on workstation # [id number]
[2023-04-25 16:44] LABS: CALCIUM 8.8 MG/DL (8.5-10.1)
[2023-04-25 16:45] LABS: TOTAL PROTEIN 6.7 GM/DL (6.4-8.2)
[2023-04-25 16:47] LABS: BILIRUBIN,TOTAL 0.6 MG/DL (0.1-1.0)
[2023-04-25 16:49] LABS: CREATININE SERUM 1.22 MG/DL (0.60-1.30)
[2023-04-25 16:53] LABS: INR 1.2 (0.8-1.4)
[2023-04-25 19:17] VITALS: BP 128/82
== END 2023-04-25 19:26 | disposition home or self-care (01) ==
LOC: EDUNIT# 15:53 → ER 15:59
DX: R07.89 Other chest pain (principal); Z95.5 Presence of coronary angioplasty implant and graft; Z95.1 Presence of aortocoronary bypass graft; Z95.0 Presence of cardiac pacemaker
CPT/HCPCS: 36415; 71045; 80053; 83690; 83735; 83874; 83880; 84484; 85025; 85379; 85610; 85730; 87636; 93005; 93041